=== PATIENT | male | born 1975 | race Caucasian/White ===

== ENCOUNTER 2022-03-17 13:32 | Inpatient (IN) | payer OTHER, SELFPAY ==
--- NOTE | ~2022-03-17 | XR_ITS ---
EXAMINATION: XR ABDOMEN KUB CLINICAL INDICATION: Assess for obstruction COMPARISON: None TECHNIQUE: AP view of the abdomen. FINDINGS: The bowel gas pattern is normal with no evidence of ileus or obstruction. No unusual soft tissue calcifications are noted. The bones are unremarkable. XR/XR KUB IMPRESSION: Unremarkable examination.
[2022-03-17 14:08] VITALS: BP 129/82; BP 160/100; PULSE 76; PULSE 96; RESP 18; TEMP 36.7; O2SAT 97; O2SAT 98; BMI 37.8
[2022-03-17 14:14] LABS: Glucose, Whole Blood 85 mg/dL (60-115)
[2022-03-17 14:21] VITALS: BP 129/82; PULSE 80; RESP 20; TEMP 37.1; O2SAT 99
--- NOTE | 2022-03-17 14:21 | ECG_ITS ---
Test Reason : FTT Blood Pressure : / mmHG Vent. Rate : 088 BPM Atrial Rate : 088 BPM P-R Int : 150 ms QRS Dur : 090 ms QT Int : 358 ms P-R-T Axes : 022 -03 048 degrees QTc Int : 433 ms Normal sinus rhythm cannot exclude old Inferior infarct , age undetermined ; could also be normal variant Abnormal ECG No previous ECGs available Referred By: Generic ED Physician Electronically Signed By:LORENA SONG
--- NOTE | 2022-03-17 14:29 | PC.NURSE ---
changed over. belonging list completed. locked in locker.
[2022-03-17 14:38] LABS: MANUAL DIFF FLAG NO
[2022-03-17 14:40] LABS: Basophils Percent Auto 0.3 % (0-2); Eosinophils Absolute Auto 0.1 X10*3/uL (0.0-0.4); Eosinophils Percent Auto 1.9 % (0-4); Hematocrit 47.6 % (42.0-52.0); Hemoglobin 16.3 g/dl (14.0-18.0); Imm Gran Abs Auto 0.02 X10*3/uL (0.00-0.03); Imm Gran Pct Auto 0.3 % (0.0-0.4); Lymphocytes Percent Auto 29.5 % (20-40); Mean Corpuscular HGB Conc 34.2 g/dl (31.0-36.0); Mean Corpuscular Hemoglobin 28.2 pg (27.0-33.0); Mean Corpuscular Volume 82.5 fL (80.0-98.0); Mean Platelet Volume 10.3 fL (9.4-12.4); Monocytes Absolute Auto 0.7 X10*3/uL (0.1-1.2); Monocytes Percent Auto 10.3 % (2-11); Neutrophils Absolute Auto 3.9 x10*3/uL (2.0-8.3); Neutrophils Percent Auto 57.7 % (45-73); Platelet Count 299 X10*3/uL (160-400); Red Blood Count 5.77 X10*6/uL (4.60-5.80); Red Cell Distribution Width 12.7 % (11.0-16.0); White Blood Count 6.8 X10*3/uL (4.8-10.8)
[2022-03-17 15:06] LABS: Alanine Aminotransferase 16 U/L (0-40); Albumin Level 4.2 g/dL (3.5-5.0); Alkaline Phosphatase 53 U/L (39-117); Anion Gap 18 (12-20); Aspartate Amino Transferase 18 U/L (5-37); Bilirubin Total 0.6 mg/dL (0.0-1.0); Blood Urea Nitrogen 13 mg/dL (9-16); Calcium 9.6 mg/dL (8.4-10.2); Carbon Dioxide 19 mmol/L (22-29); Chloride 105 mmol/L (96-108); Creatinine Clr Calc Pharmacy 109.2; Estimated Glomerular Filt Rate > 60; Glucose Random 95 mg/dL (60-115); Potassium 3.7 mmol/L (3.3-5.1); Sodium 138 mmol/L (135-145); Total Protein 6.9 g/dL (6.5-8.0)
--- NOTE | 2022-03-17 15:59 | PC.NURSE ---
CALLING [facility] FOR RECORDS FROM VISIT THIS AM. MOM AT BEDSIDE REQUESTING AND IV BE STARTED AND REPORTING CP. PT REFUSING CARDIAC LEADS. BOTH EDUCATED ON PT BLOOD WORK RESULTS AND AWARE.
--- NOTE | 2022-03-17 16:43 | ED.GENADULT ---
HPI - General Adult General Chief complaint: Failure to Thrive Stated complaint: SEC 12, stomach pain, not eaten per EMS Time Seen by Provider: 03/17/22 15:28 Source: patient and family (Mother and father) Mode of arrival: EMS History of Present Illness HPI narrative: History is obtained primarily from the mother who is at bedside. 46-year-old male with significant underlying psychiatric history who is had 4 months of intermittent complaints of abdominal discomfort, chest discomfort, nausea and vomiting and mother reports has had a 40 lb weight loss. Patient has been seen at both [facility] as well as [facility], patient was seen at [facility] this morning and had lab work done but when the family found out that it was going to be an 8 hour weight they left the emergency room and call the patient's therapist who Section 12 the patient given his underlying condition and statements that he made about ?I just want to lay here and ?. According to the mother patient has been laying in bed a home and has not been eating or drinking for 3 days. Related Data Allergies Allergy/AdvReac Type Severity Reaction Status Date / Time No Known Allergies Allergy Verified 03/17/22 16:59 Review of Systems Review of Systems: Pertinent positives and negatives as stated in HPI 10 point review of systems is otherwise negative. PMFSH Past Medical History Source: nursing notes reviewed Medical History HTN (hypertension) Social History Social History Advance Directives: No Advance Directives Information Provided: No Physical Exam ED Vital Signs: Vital Signs - 24 hr 03/17/22 14:08 03/17/22 14:21 Temperature 98.1 F 98.8 F Pulse Rate 76 80 Respiratory Rate 18 20 Blood Pressure 129/82 129/82 Pulse Oximetry 98 99 Oxygen Delivery Method Room Air Room Air BMI result Body Mass Index 37.8 VITAL SIGNS: Reviewed. GENERAL: Elevated BMI, Well developed, well nourished, in no acute distress. HEAD: Normocephalic/atraumatic EYES: PERRLA, EOMI EARS: Ext canals without abnormality OROPHARYNX: no oral lesions noted, posterior pharynx clear LUNGS: Normal breath sounds. No adventitious sounds or accessory muscle use. SpO2<98> CARDIOVASCULAR: Regular rate and rhythm without noted murmurs, no JVD or lower extremity edema. ABDOMEN: Soft, non-tender, non-distended with bowel sounds. MUSCULOSKELETAL: No tenderness, deformities, or effusions noted on gross inspection. EXTREMITIES: No cyanosis, clubbing or edema. SKIN: Inspection of the skin reveals no rashes, ulcerations, jaundice, pallor, or petechiae. NEUROLOGIC: Alert and oriented x 4. Strength and sensation to light touch were grossly intact x 4. PSYCH: Flat affect, Course Course Course Narrative: 46-year-old male with history and clinical presentation that appears to be related to underlying psychiatric conditions as opposed to functional difficulty with eating and drinking. As per mother's history patient has had CT scans, MRIs at [facility], was seen at [facility] today where he had lab work but they did not want to wait in the waiting area in a wheelchair and so left. I contacted the [facility] to find out the nature of the Section 12 and I was informed that although they had some concerns for dehydration the patient was already inpatient bed search for statements of SI and concerns regarding delusion. I reviewed the lab work which is grossly normal, renal function appears well, will give patient 2 L of IV fluids and removed the IV access and then patient can be moved back to the behavioral pod. I reviewed the lab results from [facility] which again demonstrate benign lab work and I have requested records from [facility] to include imaging, discharge summaries. Reevaluation(s) Reevaluation #1: Called [facility] to clarify nature of Sec-12, inpatient bedsearch, Time: 16:44 Reevaluation #2: Patient placed in physician observation because the patient needed more time for IV fluid resuscitation. At the time observation was started the patient's vital signs were stable, patient is alert and oriented, neuro: Nonfocal, CV RRR, lungs clear Time: 17:31 Medical Decision Making Lab Data Result Diagrams: 03/17/22 14:30 03/17/22 14:30 Labs: Lab Results 03/17/22 03/17/22 03/17/22 Range/Units 14:09 14:30 14:30 WBC 6.8 (4.8-10.8) X10*3/uL RBC 5.77 (4.60-5.80) X10*6/uL Hgb 16.3 (14.0-18.0) g/dl Hct 47.6 (42.0-52.0) % MCV 82.5 (80.0-98.0) fL MCH 28.2 (27.0-33.0) pg MCHC 34.2 (31.0-36.0) g/dl RDW 12.7 (11.0-16.0) % Plt Count 299 (160-400) X10*3/uL MPV 10.3 (9.4-12.4) fL Immature Gran % (Auto) 0.3 (0.0-0.4) % Neut % (Auto) 57.7 (45-73) % Lymph % (Auto) 29.5 (20-40) % [place] % (Auto) 10.3 (2-11) % Eos % (Auto) 1.9 (0-4) % Baso % (Auto) 0.3 (0-2) % Lymph # (Auto) 2.0 (1.2-4.9) X10*3/uL [place] # (Auto) 0.7 (0.1-1.2) X10*3/uL Eos # (Auto) 0.1 (0.0-0.4) X10*3/uL Baso # (Auto) 0.0 (0.0-0.2) X10*3/uL Abs Immat Gran (auto) 0.02 (0.00-0.03) X10*3/uL Absolute Neuts (auto) 3.9 (2.0-8.3) x10*3/uL Absolute Nucleated RBC 0.000 (0.0-0.012) X10*3/uL Nucleated RBC % (auto) 0.0 (0.0-0.2) /100WBC Sodium 138 (135-145) mmol/L Potassium 3.7 (3.3-5.1) mmol/L Chloride 105 (96-108) mmol/L Carbon Dioxide 19 L (22-29) mmol/L Anion Gap 18 (12-20) BUN 13 (9-16) mg/dL Creatinine 0.80 (0.5-1.4) mg/dL Estim Creat Clear Calc 109.2 Estimated GFR > 60 POC Glucose 85 (60-115) mg/dL Random Glucose 95 (60-115) mg/dL Calcium 9.6 (8.4-10.2) mg/dL Total Bilirubin 0.6 (0.0-1.0) mg/dL AST 18 (5-37) U/L ALT 16 (0-40) U/L Alkaline Phosphatase 53 (39-117) U/L Total Protein 6.9 (6.5-8.0) g/dL Albumin 4.2 (3.5-5.0) g/dL Critical Care Time Critical Care Time Critical Care Time: Yes Total Critical Care Time: 30 Attestation: I personally attest to this time spent taking care of the patient. Discharge Plan Discharge Clinical Impression: Suicidal ideation, Decrease in appetite Patient Disposition: Still a Patient
--- NOTE | 2022-03-17 17:06 | PC.NURSE ---
1l ns started per md verbal order
--- NOTE | 2022-03-17 17:30 | MHC.EDTECH ---
[facility] records called at 1726 per ,awaiting a call back at this time.Provider aware
--- NOTE | 2022-03-17 17:57 | PHA.MEDREC ---
Pharmacy Consult ? Medication Reconciliation Pharmacy has completed the medication reconciliation.
[2022-03-17 20:08] LABS: COVID-19 Test Negative (Negative)
--- NOTE | 2022-03-17 20:15 | PC.NURSE ---
Assumed care of pt. at 1900. Pt. resting in bed at that time with family at bedside. Pt. got a bed inpatient on M5. Spoke to Alex for report. COVID results just came back negative. Alex will be down for pt. shortly.
--- NOTE | 2022-03-18 01:37 | PC.ADMIT ---
Nils is a 46 year old Chinese speaking man. who presented to the [facility] via ambulance after community [facility] assessment . He arrived to at 22:05 on 03/17/22 on a section 12B. He is very worried about his health and says he should not be here he needs medical care its hopeless I cant do anything He was diagnosed with a thoracic aneurism in 2017 a recent follow up reported that the aneurism has enlarged this seems to have caused major concern to Justice and his functioning has decreased. Mood is worried with poor insight on self care, he has reportedly not eaten in 3 days and has a fear of having a bowel movement because of what may come out isn't safe for others he is anxious and has delusional thinking. He has no previous inpatient admission. He lives with his parents and his mother is noted to say that Justice was doing better when he was working with a therapist. He is covid 19 negative
[2022-03-18 08:56] LABS: Cholesterol 187 mg/dL; Estimated Average Glucose 88 mg/dL; Free T4 (Free Thyroxine) 1.32 ng/dL (0.71-1.85); HDL Cholesterol 28 mg/dL; Hemoglobin A1c % 4.7 %; LDL Cholesterol Calculated 138 mg/dl; Thyroid Stimulating Hormone 0.65 uIU/mL (0.32-4.0); Triglycerides 106 mg/dL
[2022-03-18 09:09] LABS: Folate 8.5 ng/mL (> or = 4.0); Vitamin B12 456 pg/mL (200-900)
--- NOTE | 2022-03-18 10:26 | HO.PSYADMNOT ---
HPI Date of Service: 03/18/22 Chief Complaint: psychosis, delusions of persecution, SI Sources of Information: patient interviewed, chart reviewed and crisis/core team assessment reviewed HPI Subjective Notes: Mathew Warning, Conditional Voluntary and Section 12B Narrative: pt is a 46 yo male with long hx of anxiety, thoracic aneurysm (dx Nov 2021) who presents for severe anxiety in face of difficulty eating/drinking since this past monday. Pt is accompanied by his mother. Pt reports that this past monday he stopped being able to eat or drink since it caused pain (pointing to area just below his xiphoid process) and wretching. Patient reports only 1 bowel movement in past 2 weeks, most recent one with blood in stool. Patients mother confirms. Patient is extremely anxious about these changes. He also shares about other ailments but extrapolates with them revealing paranoid/delusional thinking. Pt recently had ingrown toenail surgically excised but now says he thinks there is pus coming from it and that pus got into his blood stream. Recently dx w/ right eye macular degeneration and is worried that if he gets any water in his eyes, he will go blind. Pt is convinced he will keep getting sicker and ie. He refuses laxative, enema for constipation saying i don't know what will happen if i do... Regarding references to aliens pt is clear he does not think he's an alien or that there are aliens or that his body manipulated by aliens...he says he feels like his body is alien to him, that somethings wrong with it that cannot be fixed. He denies alcohol or drug use; denies AVH; Denies any SI or HI. Mother corroborates. 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 Sober for 1 year Trauma History: denies Diagnostics Vital Signs (24Hr): Vital Signs - 24 hr 03/17/22 14:08 03/17/22 14:21 Temperature 98.1 F 98.8 F Pulse Rate 76 80 Respiratory Rate 18 20 Blood Pressure 129/82 129/82 Pulse Oximetry 98 99 Oxygen Delivery Method Room Air Room Air BMI result Body Mass Index 37.8 Labs Results: 03/17/22 14:30 03/17/22 14:30 Labs: Laboratory Results - last 48 hr 03/17/22 03/17/22 03/17/22 14:09 14:30 14:30 WBC 6.8 RBC 5.77 Hgb 16.3 Hct 47.6 MCV 82.5 MCH 28.2 MCHC 34.2 RDW 12.7 Plt Count 299 MPV 10.3 Immature Gran % (Auto) 0.3 Neut % (Auto) 57.7 Lymph % (Auto) 29.5 [place] % (Auto) 10.3 Eos % (Auto) 1.9 Baso % (Auto) 0.3 Lymph # (Auto) 2.0 [place] # (Auto) 0.7 Eos # (Auto) 0.1 Baso # (Auto) 0.0 Abs Immat Gran (auto) 0.02 Absolute Neuts (auto) 3.9 Absolute Nucleated RBC 0.000 Nucleated RBC % (auto) 0.0 Sodium 138 Potassium 3.7 Chloride 105 Carbon Dioxide 19 L Anion Gap 18 BUN 13 Creatinine 0.80 Estim Creat Clear Calc 109.2 Estimated GFR > 60 POC Glucose 85 Random Glucose 95 Estimat Average Glucose Hemoglobin A1c % Calcium 9.6 Magnesium Total Bilirubin 0.6 AST 18 ALT 16 Alkaline Phosphatase 53 Total Protein 6.9 Albumin 4.2 Triglycerides Cholesterol LDL Cholesterol, Calc HDL Cholesterol Vitamin B12 Folate TSH Free T4 COVID-19 ([facility]ANNA) COVID-19 Clin Com 03/17/22 03/18/22 03/18/22 19:49 08:00 08:00 WBC RBC Hgb Hct MCV MCH MCHC RDW Plt Count MPV Immature Gran % (Auto) Neut % (Auto) Lymph % (Auto) [place] % (Auto) Eos % (Auto) Baso % (Auto) Lymph # (Auto) [place] # (Auto) Eos # (Auto) Baso # (Auto) Abs Immat Gran (auto) Absolute Neuts (auto) Absolute Nucleated RBC Nucleated RBC % (auto) Sodium Potassium Chloride Carbon Dioxide Anion Gap BUN Creatinine Estim Creat Clear Calc Estimated GFR POC Glucose Random Glucose Estimat Average Glucose 88 Hemoglobin A1c % 4.7 Calcium Magnesium 2.0 Total Bilirubin AST ALT Alkaline Phosphatase Total Protein Albumin Triglycerides 106 Cholesterol 187 LDL Cholesterol, Calc 138 HDL Cholesterol 28 Vitamin B12 Folate TSH 0.65 Free T4 1.32 COVID-19 (HANNA) Negative COVID-19 Clin Com See Note 03/18/22 08:00 WBC RBC Hgb Hct MCV MCH MCHC RDW Plt Count MPV Immature Gran % (Auto) Neut % (Auto) Lymph % (Auto) [place] % (Auto) Eos % (Auto) Baso % (Auto) Lymph # (Auto) [place] # (Auto) Eos # (Auto) Baso # (Auto) Abs Immat Gran (auto) Absolute Neuts (auto) Absolute Nucleated RBC Nucleated RBC % (auto) Sodium Potassium Chloride Carbon Dioxide Anion Gap BUN Creatinine Estim Creat Clear Calc Estimated GFR POC Glucose Random Glucose Estimat Average Glucose Hemoglobin A1c % Calcium Magnesium Total Bilirubin AST ALT Alkaline Phosphatase Total Protein Albumin Triglycerides Cholesterol LDL Cholesterol, Calc HDL Cholesterol Vitamin B12 456 Folate 8.5 TSH Free T4 COVID-19 (HANNA) COVID-19 Clin Com Meds/Allergies Meds Home Medications Medication Instructions Recorded Confirmed Type amlodipine 5 mg tablet 1 tab PO DAILY 03/17/22 03/17/22 History metoprolol succinate 25 mg 1 tab PO DAILY 03/17/22 03/17/22 History tablet,extended release 24 hr Allergies Allergies Allergy/AdvReac Type Severity Reaction Status Date / Time No Known Allergies Allergy Verified 03/17/22 16:59 Mental Status Exam Mental Status Exam Narrative: Pt is alert and oriented; behavior is anxious, head on table; dressed in hospital attire with scruffy facial hair, adequate hygiene; mood is described as anxious and affect congruent, furrowed brow; minimal eye contact appropriate; Speech is normal rate, volume and prosody and not pressured; no psychomotor agitation/retardation present; thought process is goal directed; Thought content is on physical ailments and psychosomatic and delusional worries; denies any SI/HI. There is no evidence of perceptual disturbance. Patients insight and judgment are impaired. Assessment & Plan Assessment & Plan (1) MACIEL (generalized anxiety disorder): Status: Acute Code(s): F41.1 - Generalized anxiety disorder (2) Somatic delusion disorder: Status: Acute Code(s): F22 - Delusional disorders (3) Thoracic aortic aneurysm: Status: Acute Code(s): I71.20 - Thoracic aortic aneurysm, without rupture, unspecified Plan pt is a 46 yo male with long hx of anxiety, thoracic aneurysm (dx Nov 2021) who presents for severe anxiety in face of difficulty eating/drinking since this past monday. Pt is accompanied by his mother.? -Pt reports that this past monday he stopped being able to eat or drink since it caused pain (pointing to area just below his xiphoid process) and wretching. -hx of severe anxiety -but no hx of psychosis Impression: pt has combination of medical illness and delusional somatic complaints likely from MACIEL/OCD, making dx difficult. Does not seem psychotic or manic; mother says excessive worry started w/ dx of aneurysm a few months ago. Patients insight varies depending on anxiety level and though he can understand possible concerns, minimizes confounding role of anxiety and does things like refuse enema; thinks his situation is hopeless Concerns to address: 1. has complaints concerning for bowel obstruction (no BM 2 weeks; cannot keep food/water down 3 days; billious vomit) 2. recent hx thoracic aneurysm with sudden onset of substernal upper abdominal pain on eating/drinking for 3 days, concern for possible worsening dilation of aneurysm. 3. likely MACIEL and/or OCD requiring medication management (though pt currently not willing) PLAN: Discussed case with Hospitalist Dr. Hernandez, Dr. Law (GI) and cover stitch machine operator Dr. Serrano -Barrium swallow on hold to first r/o obstruction (per amrik Law) with KUB -KUB ordered (per Dr. Law) -CT chest/angio/aortic ordered with IV contrast to r/o worsening thoracic aneurysm (per dr. Serrano-though considers this unlikely). -fleet enema ordered Otherwise: 12 B (refused to sign CV offered again by this senior medical writer) q15min checks Ativan PrN (can let dissolve under tongue) Patient educated on: diagnosis, medication risk/benefits and medical condition Informed Consent: understands, does not understand and further education needed Reason for continued inpatient stay Substantial Risk for: inability to function and rapid decompensation Statement Statement: I have reviewed the history and physical and performed a pertinent examination on my patient. No changes have occurred unless specified. Time Spent With Patient Time: Total time managing care of this patient today ____ minutes.
[2022-03-18 12:08] VITALS: BP 148/90; PULSE 107; RESP 16; TEMP 36.9; O2SAT 97
[2022-03-18] MEDS: LORazepam 1 MG TABLET PO (12:26)
[2022-03-18 18:00] VITALS: RESP 18
[2022-03-19 08:30] VITALS: BP 122/75; PULSE 100; TEMP 36.4
--- NOTE | 2022-03-19 10:17 | P.PNPSI_ITS ---
Subjective Subjective Date of Service: 03/19/22 Reason For Visit: psychosis, delusions of persecution, SI Interim History: meeting w/ parents; pt anxious, lamenting that nothing can be done for him, just let him go...asking his parents to just leave him somewhere...Locks Tender asked where the side of the road? and he says yes. He denies any SI and laments i want to drink i want to eat...i just can't...i can't explain it.. but goes on to repeat that nothing can be done for him. Patient refuses to believe that process description writer has seeing other patients who could not eat or drink, saying that this is a unique situation. Locks Tender and parents together tried to encourage patient to take another Ativan under his tongue, which helped yesterday however he refused and kept saying it will not help... there is no point (after patient took Ativan under his tongue he was much more reasonable and able to engage with process description writer and agreed that perhaps he could be helped; at that time he agreed to KUB, barium swallow and thoracic CT-each intervention was explained to patient. Patient got the KUB but was worried about the CT and eventually refused CT). Patient refused an IV fluids for the same reason saying it is not going to help. Locks Tender appeal to patient's rational thinking from yesterday and reminded him that he agreed anxiety can interfere; process description writer reminded him that if he was thinking clearly and say was constipated he would take treatment and that to refuse a treatment was a sign that anxiety was interfering with his thinking. Yesterday agreed with this logic but today, though he agreed that it does not make sense he returned to his lament and said I can not explain it I just can not explain it... Nothing is going to work. Patient has a thoracic aneurysm and has not been taking his metoprolol or amlodipine saying he is unable to swallow. Locks Tender discussed with patient who understands the need for these medications for his thoracic aneurysm however He refuses IV metoprolol saying it's not going to help... Nothing is going to help.... You can not fix me.... Locks Tender, Patient and mother and father discussed healthcare proxy and patient was initially ambivalent. Locks Tender explained the details of healthcare proxy; patient asked appropriate questions and expressed he understood and said he trusts his parents and that they are great. Patient signed healthcare proxy designating his mother and than his father as alternate. Patient's parents review timeline events leading up to this admission: Prior to this summer, patient was overall doing fine, worked, drove his car and for the past 2 years had no obvious problems. Parents agree that patient is drinking likely kept his anxiety down to some degree -September: sister got diagnosed with melanoma very upsetting for patient -September: patient had painless hematuria, cystoscopy did have a finding but it was benign -November: About 4 years ago patient was diagnosed with thoracic aneurysm however he has not followed up. This past summer he was going to the emergency room multiple times for various problems and eventually agreed to thoracic CT which showed that aneurysm had increased to 4.3 mg -December: Patient had a severely ingrown toenail which required surgical extraction -January: Patient diagnosed with macular degeneration is right eye -over these months patient has been eating less and less, saying that he had little appetite, did not like the smell of meat and has lost 20 or more lb -March: on Monday patient had bloody stool; 1st bowel movement in a week On Monday patient suddenly had chest pain and subsequent retching after drinking any fluid or eating anything On 02:30 patient went to [facility] ED, blood labs were drawn but no imaging or or labs; no fluid; long wait prompted patient to return home but he then came to [place] ED where he got IV fluid Parents agree that given patient's baseline anxiety, all these events mounted to become overwhelming for patient and tipped scales to him decompensating leading to this admission. Refused occult stool test (H&H WNL and stable) Diagnostics Vital Signs (24Hr): Vital Signs - 24 hr 03/18/22 12:08 03/18/22 18:00 Temperature 98.5 F Pulse Rate 107 H Respiratory Rate 16 18 Blood Pressure 148/90 H Pulse Oximetry 97 Oxygen Delivery Method Room Air BMI result Body Mass Index 37.8 Labs Results: 03/17/22 14:30 03/19/22 16:49 Labs: Laboratory Results - last 48 hr 03/17/22 03/17/22 03/17/22 14:09 14:30 14:30 WBC 6.8 RBC 5.77 Hgb 16.3 Hct 47.6 MCV 82.5 MCH 28.2 MCHC 34.2 RDW 12.7 Plt Count 299 MPV 10.3 Immature Gran % (Auto) 0.3 Neut % (Auto) 57.7 Lymph % (Auto) 29.5 [place] % (Auto) 10.3 Eos % (Auto) 1.9 Baso % (Auto) 0.3 Lymph # (Auto) 2.0 [place] # (Auto) 0.7 Eos # (Auto) 0.1 Baso # (Auto) 0.0 Abs Immat Gran (auto) 0.02 Absolute Neuts (auto) 3.9 Absolute Nucleated RBC 0.000 Nucleated RBC % (auto) 0.0 Sodium 138 Potassium 3.7 Chloride 105 Carbon Dioxide 19 L Anion Gap 18 BUN 13 Creatinine 0.80 Estim Creat Clear Calc 109.2 Estimated GFR > 60 POC Glucose 85 Random Glucose 95 Estimat Average Glucose Hemoglobin A1c % Calcium 9.6 Magnesium Total Bilirubin 0.6 AST 18 ALT 16 Alkaline Phosphatase 53 Total Protein 6.9 Albumin 4.2 Triglycerides Cholesterol LDL Cholesterol, Calc HDL Cholesterol Vitamin B12 Folate TSH Free T4 COVID-19 ([facility]) COVID-19 Clin Com 03/17/22 03/18/22 03/18/22 19:49 08:00 08:00 WBC RBC Hgb Hct MCV MCH MCHC RDW Plt Count MPV Immature Gran % (Auto) Neut % (Auto) Lymph % (Auto) [place] % (Auto) Eos % (Auto) Baso % (Auto) Lymph # (Auto) [place] # (Auto) Eos # (Auto) Baso # (Auto) Abs Immat Gran (auto) Absolute Neuts (auto) Absolute Nucleated RBC Nucleated RBC % (auto) Sodium Potassium Chloride Carbon Dioxide Anion Gap BUN Creatinine Estim Creat Clear Calc Estimated GFR POC Glucose Random Glucose Estimat Average Glucose 88 Hemoglobin A1c % 4.7 Calcium Magnesium 2.0 Total Bilirubin AST ALT Alkaline Phosphatase Total Protein Albumin Triglycerides 106 Cholesterol 187 LDL Cholesterol, Calc 138 HDL Cholesterol 28 Vitamin B12 Folate TSH 0.65 Free T4 1.32 COVID-19 ([facility]) Negative COVID-19 Clin Com See Note 03/18/22 08:00 WBC RBC Hgb Hct MCV MCH MCHC RDW Plt Count MPV Immature Gran % (Auto) Neut % (Auto) Lymph % (Auto) [place] % (Auto) Eos % (Auto) Baso % (Auto) Lymph # (Auto) [place] # (Auto) Eos # (Auto) Baso # (Auto) Abs Immat Gran (auto) Absolute Neuts (auto) Absolute Nucleated RBC Nucleated RBC % (auto) Sodium Potassium Chloride Carbon Dioxide Anion Gap BUN Creatinine Estim Creat Clear Calc Estimated GFR POC Glucose Random Glucose Estimat Average Glucose Hemoglobin A1c % Calcium Magnesium Total Bilirubin AST ALT Alkaline Phosphatase Total Protein Albumin Triglycerides Cholesterol LDL Cholesterol, Calc HDL Cholesterol Vitamin B12 456 Folate 8.5 TSH Free T4 COVID-19 ([facility]) COVID-19 Clin Com Imaging Radiology Impressions: ITS Impressions KUB X-Ray 03/18/22 16:35 IMPRESSION: Unremarkable examination. Medications Medications Current Medications Acetaminophen (Acetaminophen 325 Mg Tablet) 650 mg PO Q6H PRN PRN Reason: Headache/Pain Mild Scale (1-3) Al Hydroxide/Mg Hydroxide (Magnesium Hydrox/Alum Hydrox 30 Ml Oral.Susp) 30 ml PO Q6H PRN PRN Reason: Heartburn/Nausea Amlodipine Besylate (Amlodipine Besylate 5 Mg Tablet) 5 mg PO DAILY [facility]; Protocol Last Admin: 03/19/22 09:07 Dose: Not Given Hydroxyzine HCl (Hydroxyzine Hcl 25 Mg Tablet) 25 mg PO Q6H PRN PRN Reason: Anxiety Lorazepam (Lorazepam 1 Mg Tablet) 1 mg PO Q4H PRN PRN Reason: anxiety; agitation Magnesium Hydroxide (Milk Of Magnesia 30 Ml Oral.Susp) 30 ml PO DAILY PRN PRN Reason: Constipation Metoprolol Succinate (Metoprolol Succinate Er 25 Mg Tab.Er.24h) 25 mg PO DAILY [facility]; Protocol Last Admin: 03/19/22 09:07 Dose: Not Given Olanzapine (Olanzapine Odt 10 Mg Tab.Rapdis) 10 mg TRANSLINGU BID PRN PRN Reason: Psychosis Pharmacy Consult (Consult Rx Perform Med Rec) 1 each MISCELLANE ONCE PRN PRN Reason: Consult order Polyethylene Glycol (Polyethylene Glycol 3350 17 Gm Powd.Pack) 17 gm PO DAILY PRN PRN Reason: constipation Sodium Biphosphate/Sodium Phosphate (Sodium Phosphate,[place]-Dibasic 133 Ml Enema) 133 ml [place] ONCE PRN PRN Reason: Constipation Trazodone HCl (Trazodone Hcl 50 Mg Tablet) 50 mg PO BEDTIME PRN PRN Reason: Insomnia Allergies Allergies Allergy/AdvReac Type Severity Reaction Status Date / Time No Known Allergies Allergy Verified 03/17/22 16:59 Assessment & Plan Assessment & Plan (1) MACIEL (generalized anxiety disorder): Status: Acute Code(s): F41.1 - Generalized anxiety disorder (2) Somatic delusion disorder: Status: Acute Code(s): F22 - Delusional disorders (3) Thoracic aortic aneurysm: Status: Acute Code(s): I71.20 - Thoracic aortic aneurysm, without rupture, unspecified Plan pt is a 46 yo male with long hx of anxiety, thoracic aneurysm (dx Nov 2021) who presents for severe anxiety in face of difficulty eating/drinking since this past monday. Pt is accompanied by his mother.? -Pt reports that this past monday he stopped being able to eat or drink since it caused pain (pointing to area just below his xiphoid process) and wretching. -hx of severe anxiety -but no hx of psychosis Patient's parents review timeline events leading up to this admission: Prior to this summer, patient was overall doing fine, worked, drove his car and for the past 2 years had no obvious problems. Parents agree that patient is drinking likely kept his anxiety down to some degree -September: sister got diagnosed with melanoma very upsetting for patient -September: patient had painless hematuria, cystoscopy did have a finding but it was benign -November: About 4 years ago patient was diagnosed with thoracic aneurysm however he has not followed up. This past summer he was going to the emergency room multiple times for various problems and eventually agreed to thoracic CT which showed that aneurysm had increased to 4.3 mg -December: Patient had a severely ingrown toenail which required surgical extraction -January: Patient diagnosed with macular degeneration is right eye -over these months patient has been eating less and less, saying that he had little appetite, did not like the smell of meat and has lost 20 or more lb -March: on Monday patient had bloody stool; 1st bowel movement in a week On Monday patient suddenly had chest pain and subsequent retching after drinking any fluid or eating anything On 02:30 patient went to [facility] ED, blood labs were drawn but no imaging or or labs; no fluid; long wait prompted patient to return home but he then came to [place] ED where he got IV fluid .03/19 meeting w/ parents; pt anxious, lamenting that nothing can be done for him, just let him go...asking his parents to just leave him somewhere...Locks Tender asked where the side of the road? and he says yes. He denies any SI and laments i want to drink i want to eat...i just can't...i can't explain it.. but goes on to repeat that nothing can be done for him. Patient refuses to believe that process description writer has seeing other patients who could not eat or drink, saying that this is a unique situation. Locks Tender and parents together tried to encourage patient to take another Ativan under his tongue, which helped yesterday however he refused and kept saying it will not help... there is no point (after patient took Ativan under his tongue he was much more reasonable and able to engage with process description writer and agreed that perhaps he could be helped; at that time he agreed to KUB, barium swallow and thoracic CT-each intervention was explained to patient. Patient got the KUB but was worried about the CT and eventually refused CT). Patient refused an IV fluids for the same reason saying it is not going to help. Patient has a thoracic aneurysm and has not been taking his metoprolol or amlodipine saying he is unable to swallow. Locks Tender discussed with patient who understands the need for these medications for his thoracic aneurysm however He refuses IV metoprolol saying it's not going to help... Nothing is going to help.... You can not fix me.... -patient reported that he did make urine today, that it was brown and bubbly Locks Tender, Patient and mother and father discussed healthcare proxy and patient was initially ambivalent. Locks Tender explained the details of healthcare proxy; patient asked appropriate questions and expressed he understood and said he trusts his parents and that they are great. Patient signed healthcare proxy designating his mother and than his father as alternate. Concerns to address: 1. bowel obstruction: dr. zhang r/o given unremarkable KUB (no BM 2 weeks; cannot keep food/water down 3 days; billious vomit) 2. Assess thoracic aneurysm, given with sudden onset of substernal upper abdominal pain on eating/drinking for 3 days, concern for possible worsening dilation of aneurysm 3. likely MACIEL and/or OCD requiring medication management (though pt currently not willing) Discussed case with Hospitalist Dr. Thanh Jackman (GI) and [facility] Dr. Serrano -Barrium swallow on hold to first r/o obstruction (per amrik Zhang) with KUB -KUB ordered (per Dr. Zhang): unremarkable -CT chest/angio/aortic ordered with IV contrast to r/o worsening thoracic aneurysm (per dr. Serrano-though considers this unlikely); pt refused -fleet enema ordered: refused Impression/plan: Parents agree that given patient's baseline anxiety, all these events combined into overwhelming anxiety and and tipped scales for him decompensate leading to this admission pt has combination of organic medical illness and delusional somatic complaints likely from MACIEL/OCD, making dx difficult. Does not seem psychotic or manic; mother says excessive worry started in summer when sister dx with cancer and worsened since. Patients insight varies depending on anxiety level and though he can understand possible concerns, minimizes confounding role of anxiety and does things like refuse enema; thinks his situation is hopeless -currently patient is either unable or refusing to drink any fluids; he refuses IV for fluids, refuses thoracic CT, refuses barium swallow, refuses Fleet enema, refuses occult stool test; he eventually allowed labs redrawn to monitor for kidney function. Patient's anxiety is chronic but has reached a psychotic level and patient does not have the capacity to make medical decisions for himself. He says he wants to live, wants to get better (wants to eat and drink) but has paranoid delusional thinking is causing him to him make decisions he would not normally make. Patient is still making urine. Will continue to assess dehydration however without fluids patient will at some point risks severe and even permanent kidney damage. PLAN: 12 B (refused to sign CV offered again by this process description writer) q15min checks Signed HCP on 03/19/22 continue Ativan 1mg TID (can let dissolve under tongue); pt refuses Continue to encourage IV for fluids Labs: Ordered repeat BMP to monitor kidney KUB negative for bowel obstruction -discussed with Dr. Lenz monitor for signs of dehydration: Dry mucus membranes; Skin turgor, drop in blood pressure/reflex tachycardia; sunken eyes I spent minutes with the patient and/or on the patient floor today, greater than?50% of which was spent counseling/coordinating care. Patient educated on: diagnosis, medication risk/benefits and medical condition Informed Consent: does not understand Reason for contiued inpatient stay Substantial Risk for: harm to self and inability to function Time Spent With Patient Time: Total time managing care of this patient today ____ minutes.
[2022-03-19 16:43] VITALS: BP 153/96; PULSE 100; RESP 18; TEMP 37.2; O2SAT 97
[2022-03-19 17:51] LABS: Anion Gap 20 (12-20); Blood Urea Nitrogen 20 mg/dL (9-16); Calcium 9.5 mg/dL (8.4-10.2); Carbon Dioxide 15 mmol/L (22-29); Chloride 109 mmol/L (96-108); Creatinine Clr Calc Pharmacy 107.9; Estimated Glomerular Filt Rate > 60; Glucose Random 93 mg/dL (60-115); Sodium 140 mmol/L (135-145)
[2022-03-20 06:00] VITALS: BP 109/83; PULSE 137; RESP 16; TEMP 36.8; O2SAT 98
[2022-03-20 10:00] VITALS: BP 144/90; PULSE 96; RESP 16; TEMP 36.7; O2SAT 96
[2022-03-20 10:35] LABS: Glucose, Whole Blood 90 mg/dL (60-115)
[2022-03-20 14:00] VITALS: BP 124/82; PULSE 121; RESP 20; O2SAT 96
--- NOTE | 2022-03-20 15:05 | PM.IMHP ---
History of Present Illness Date of Service: 03/20/22 Attending physician on admission: Kirill Ramesh Chief Complaint: Decreased PO intake Medical consult for a pt who is a 46-year-old male with a PMH significant for anxiety, SI, and delusions of persecution who states he has stopped eating and drinking since Monday evening. Pt states he suddenly could keep nothing down and would wretch everything up, especially fluids. Claims he has consumed nothing PO except for a few occasional sips that he would subsequently spit up. Pt notes he urinated earlier in the day, and it was dark yellow/brown in color with a lot of bubbles. Denies hematuria, but reports [id number] per rectum with last bowel movement, which was on Monday and required a great deal of straining to evacuate. Also complains of heartburn, rated 5/10. Denies chest pain/pressure, SOB, palpitations. No F/C. Hospitalist consult sought to evaluate for medical cause of anorexia and for second opinion should intervention be necessary. Labs yesterday were unremarkable, with creatinine 0.81. KUB with no evidence of ileus or obstruction. Of note, pt has been refusing taking anything PO, including meds, and other medical interventions such as IVF or additional studies. Review of Systems Review of Systems: Decreased appetite Nausea, vomiting with p.o. intake Dark yellow/ brown urine Heartburn Denies hematuria Denies chest pain / pressure No shortness of breath PMFSH Medical History HTN (hypertension) Social History Household Members: Other Household Members Other:: lives with parents Housing: House Do you presently have visiting nurse or other home services: No Patient Tobacco Use Status: Never used Tobacco Use of substances other than those prescribed or required for medical reasons: No Currently Displaying Signs/Symptoms of Drug Intoxication Withdrawal: No Have you been hit, kicked, punched, or otherwise hurt by someone within the past year? If so, by whom?: No Do you feel safe in your current relationship?: Yes Is there a partner from a previous relationship who is making you feel unsafe now?: No Are you made to feel afraid or neglected: No Spiritual Healthcare Practices: none Spiritism Healthcare Practices: none Cultural Healthcare Practices: none Advance Directives: No Advance Directives Information Provided: No Do you have thoughts of harming others: None Do you have a plan to hurt others: No Plan Recently lost weight without trying: Yes How much weight loss: 2-13 pounds Eating poorly because of decreased appetite: Yes Nutrition screen score: 4 Nutrition Risks: Poor intake 0-25% >4 days Poor oral hygiene: No service: No Sexual orientation: Decline to Answer Meds Allergies Allergy/AdvReac Type Severity Reaction Status Date / Time No Known Allergies Allergy Verified 03/17/22 16:59 Active Medications: Current Medications Acetaminophen (Acetaminophen 325 Mg Tablet) 650 mg PO Q6H PRN PRN Reason: Headache/Pain Mild Scale (1-3) Al Hydroxide/Mg Hydroxide (Magnesium Hydrox/Alum Hydrox 30 Ml Oral.Susp) 30 ml PO Q6H PRN PRN Reason: Heartburn/Nausea Amlodipine Besylate (Amlodipine Besylate 5 Mg Tablet) 5 mg PO DAILY [facility]; Protocol Last Admin: 03/20/22 09:50 Dose: Not Given Hydroxyzine HCl (Hydroxyzine Hcl 25 Mg Tablet) 25 mg PO Q6H PRN PRN Reason: Anxiety Lorazepam (Lorazepam 1 Mg Tablet) 1 mg PO TID [facility] Last Admin: 03/20/22 14:55 Dose: Not Given Magnesium Hydroxide (Milk Of Magnesia 30 Ml Oral.Susp) 30 ml PO DAILY PRN PRN Reason: Constipation Metoprolol Succinate (Metoprolol Succinate Er 25 Mg Tab.Er.24h) 25 mg PO DAILY [facility]; Protocol Last Admin: 03/20/22 09:50 Dose: Not Given Olanzapine (Olanzapine Odt 10 Mg Tab.Rapdis) 5 mg TRANSLINGU TID PRN PRN Reason: Psychosis Pharmacy Consult (Consult Rx Perform Med Rec) 1 each MISCELLANE ONCE PRN PRN Reason: Consult order Polyethylene Glycol (Polyethylene Glycol 3350 17 Gm Powd.Pack) 17 gm PO DAILY PRN PRN Reason: constipation Sodium Biphosphate/Sodium Phosphate (Sodium Phosphate,[place]-Dibasic 133 Ml Enema) 133 ml [place] ONCE PRN PRN Reason: Constipation Trazodone HCl (Trazodone Hcl 50 Mg Tablet) 50 mg PO BEDTIME PRN PRN Reason: Insomnia Home Medications Medication Instructions Recorded Confirmed Last Taken Type amlodipine 5 mg tablet 1 tab PO DAILY 03/17/22 03/17/22 03/17/22 History metoprolol succinate 25 mg 1 tab PO DAILY 03/17/22 03/17/22 03/17/22 History tablet,extended release 24 hr Physical Exam Vital Signs and Narrative: Vital Signs: Last Vital Signs Temp 98.1 F 03/20/22 10:00 Pulse 121 H 03/20/22 14:00 Resp 20 03/20/22 14:00 BP 124/82 03/20/22 14:00 Pulse Ox 96 03/20/22 14:00 O2 Del Method 03/20/22 10:00 BMI result Body Mass Index 37.8 General: AOx3, no acute distress Resp: CTA bilaterally CVS: S1, S2, tachycardia, regular rhythm GI: Hypoactive BS, NT, no distention Skin: No rash Neuro: Motor grossly intact Psych: Flat affect Neuro: General: CN's II-XI intact bilaterally Results Labs CBC and Chem 7: 03/17/22 14:30 03/19/22 16:49 Labs: Laboratory Results - last 24 hr 03/19/22 03/20/22 16:49 10:30 Anion Gap 20 Estim Creat Clear Calc 107.9 Estimated GFR > 60 POC Glucose 90 Random Glucose 93 Calcium 9.5 Assessment and Plan (1) Anorexia: Status: Acute Plan Medical consult for a pt who is a 46-year-old male with a PMH significant for anxiety, SI, and delusions of persecution who states he has stopped eating and drinking since Monday evening. Pt states he suddenly could keep nothing down and would wretch everything up, especially fluids. Labs yesterday were unremarkable, with creatinine 0.81. KUB with no evidence of ileus or obstruction. # anorexia -- etiology unclear, though no clear medical cause precluding him from eating -- labs currently unremarkable; creatinine 0.81 -- consider barium swallow if pt wiling -- follow labs for lytes and kidney function -- consider Velazquez order if pt continues to refuse po intake and labs show kidney failure # tachycardia -- etiology unclear -- possibly due to decreased po intake or anxiety # mental health -- per care of psychiatry team Thank you for allowing us to participate in the care of this patient. Please call if you have any additional problems or questions. Time Spent With Patient Time: Total time managing care of this patient today ____ minutes. Quality Stroke Does the patient have a stroke diagnosis?: No VTE Prior VTE?: No VTE Risk Level:: Medical - low VTE Device Contraindication: Treatment Not Indicated VTE Drug Contraindication: Treatment Not Indicated
--- NOTE | 2022-03-20 17:42 | P.PNPSI_ITS ---
Subjective Subjective Date of Service: 03/20/22 Reason For Visit: psychosis, delusions of persecution, SI Interim History: Patient remains delusional, insisting that nothing could be done for him and continues to refuse IV fluids, medications or any intervention at all. yesterday, He did allow blood draw for lytes and BUN/creatinine which remain within normal limits Skin turgor within normal limits; mild to moderately tachy, but BP WNL; mucous membranes dry Parents came to visit again, urging him to get an IV, except treatment, however patient continues to refuse and remains adamant that nothing can be done for him, repeating to just let him go and that his condition is hopeless, never happened to anyone before and can't be explained Mental Status Exam Mental Status Exam Narrative: Pt is alert and oriented; behavior is anxious, lying on bed; dressed in casual attire with scruffy facial hair, disheveled; mood is described as anxious and affect congruent, furrowed brow; minimal eye contact appropriate; Speech is normal rate, volume and prosody and not pressured; no psychomotor agitation/retardation present; thought process is goal directed; Thought content is on physical ailments, hopelessness and psychosomatic delusional worries; denies any SI/HI. There is no evidence of perceptual disturbance. Patients insight and judgment are impaired. Diagnostics Vital Signs (24Hr): Vital Signs - 24 hr 03/20/22 06:00 03/20/22 10:00 03/20/22 14:00 Temperature 98.2 F 98.1 F Pulse Rate 137 H 96 121 H Respiratory Rate 16 16 20 Blood Pressure 109/83 144/90 H 124/82 Pulse Oximetry 98 96 96 Oxygen Delivery Method Room Air Room Air BMI result Body Mass Index 37.8 Labs Results: 03/17/22 14:30 03/21/22 14:15 Labs: Laboratory Results - last 48 hr 03/19/22 03/20/22 16:49 10:30 Sodium 140 Potassium 4.0 Chloride 109 H Carbon Dioxide 15 L Anion Gap 20 BUN 20 H Creatinine 0.81 Estim Creat Clear Calc 107.9 Estimated GFR > 60 POC Glucose 90 Random Glucose 93 Calcium 9.5 Imaging Radiology Impressions: ITS Impressions KUB X-Ray 03/18/22 16:35 IMPRESSION: Unremarkable examination. Medications Medications Current Medications Acetaminophen (Acetaminophen 325 Mg Tablet) 650 mg PO Q6H PRN PRN Reason: Headache/Pain Mild Scale (1-3) Al Hydroxide/Mg Hydroxide (Magnesium Hydrox/Alum Hydrox 30 Ml Oral.Susp) 30 ml PO Q6H PRN PRN Reason: Heartburn/Nausea Amlodipine Besylate (Amlodipine Besylate 5 Mg Tablet) 5 mg PO DAILY [facility]; Protocol Last Admin: 03/20/22 09:50 Dose: Not Given Hydroxyzine HCl (Hydroxyzine Hcl 25 Mg Tablet) 25 mg PO Q6H PRN PRN Reason: Anxiety Lorazepam (Lorazepam 1 Mg Tablet) 1 mg PO TID [place] Last Admin: 03/20/22 14:55 Dose: Not Given Magnesium Hydroxide (Milk Of Magnesia 30 Ml Oral.Susp) 30 ml PO DAILY PRN PRN Reason: Constipation Metoprolol Succinate (Metoprolol Succinate Er 25 Mg Tab.Er.24h) 25 mg PO DAILY [facility]; Protocol Last Admin: 03/20/22 09:50 Dose: Not Given Olanzapine (Olanzapine Odt 10 Mg Tab.Rapdis) 5 mg TRANSLINGU TID PRN PRN Reason: Psychosis Pharmacy Consult (Consult Rx Perform Med Rec) 1 each MISCELLANE ONCE PRN PRN Reason: Consult order Polyethylene Glycol (Polyethylene Glycol 3350 17 Gm Powd.Pack) 17 gm PO DAILY PRN PRN Reason: constipation Sodium Biphosphate/Sodium Phosphate (Sodium Phosphate,Deaf Smith-Dibasic 133 Ml Enema) 133 ml IL ONCE PRN PRN Reason: Constipation Trazodone HCl (Trazodone Hcl 50 Mg Tablet) 50 mg PO BEDTIME PRN PRN Reason: Insomnia Allergies Allergies Allergy/AdvReac Type Severity Reaction Status Date / Time No Known Allergies Allergy Verified 03/17/22 16:59 Assessment & Plan Assessment & Plan (1) MACIEL (generalized anxiety disorder): Status: Acute Code(s): F41.1 - Generalized anxiety disorder (2) Somatic delusion disorder: Status: Acute Code(s): F22 - Delusional disorders (3) Thoracic aortic aneurysm: Status: Acute Code(s): I71.20 - Thoracic aortic aneurysm, without rupture, unspecified Plan pt is a 46 yo male with long hx of anxiety, thoracic aneurysm (dx Nov 2021) who presents for severe anxiety in face of difficulty eating/drinking since this past monday. Pt is accompanied by his mother.? -Pt reports that this past monday he stopped being able to eat or drink since it caused pain (pointing to area just below his xiphoid process) and wretching. -hx of severe anxiety -but no hx of psychosis Patient's parents review timeline events leading up to this admission: Prior to this summer, patient was overall doing fine, worked, drove his car and for the past 2 years had no obvious problems.? Parents agree that patient is drinking likely kept his anxiety down to some degree -September:? sister got diagnosed with melanoma very upsetting for patient -September:? patient had painless hematuria, cystoscopy did have a finding but it was benign -November:? About 4 years ago patient was diagnosed with thoracic aneurysm however he has not followed up.? This past summer he was going to the emergency room multiple times for various problems and eventually agreed to thoracic CT which showed that aneurysm had increased to 4.3 mg -December:? Patient had a severely ingrown toenail which required surgical extraction -January: Patient diagnosed with macular degeneration is right eye -over these months patient has been eating less and less, saying that he had little appetite, did not like the smell of meat and has lost 20 or more lb -March: on Monday patient had bloody stool; 1st bowel movement in a week On Monday patient suddenly had chest pain and subsequent retching after drinking any fluid or eating anything On 02:30 patient went to [facility] ED, blood labs were drawn but no imaging or or labs; no fluid; long wait prompted patient to return home but he then came to [place] ED where he got IV fluid .03/19 meeting w/ parents; pt anxious, lamenting that nothing can be done for him, just let him go...asking his parents to just leave him somewhere...Human Services Instructor asked where the side of the road? and he says yes. He denies any SI and laments i want to drink i want to eat...i just can't...i can't explain it.. but goes on to repeat that nothing can be done for him.? Patient refuses to believe that procedure writer has seeing other patients who could not eat or drink, saying that this is a unique situation.? Human Services Instructor and parents together tried to encourage patient to take a nother Ativan under his tongue, which helped yesterday however he refused and kept saying it will not help... there is no point (after patient took Ativan under his tongue he was much more reasonable and able to engage with procedure writer and agreed that perhaps he could be helped; at that time he agreed to KUB, barium swallow and thoracic CT-each intervention was explained to patient.? Patient got the KUB but was worried about the CT and eventually refused CT).? Patient refused an IV fluids for the same reason saying it is not going to help. Patient has a thoracic aneurysm and has not been taking his metoprolol or amlodipine saying he is unable to swallow.? Human Services Instructor discussed with patient who understands the need for these medications for his thoracic aneurysm however He refuses IV metoprolol saying it's not going to help...? Nothing is going to help....? You can not fix me.... -patient reported that he did make urine today, that it was brown and bubbly Human Services Instructor, Patient and mother and father discussed healthcare proxy and patient was initially ambivalent.? Human Services Instructor explained the details of healthcare proxy;? patient asked appropriate questions and expressed he understood and said he nicholas sts his parents and that they are great. Patient signed healthcare proxy designating his mother and than his father as alternate. Discussed case with Hospitalist Dr. Hernandez, Dr. Zhang (GI) and software engineer advisor Dr. Serrano -[facility] swallow on hold to first r/o obstruction (per amrik Zhang) with KUB -KUB ordered (per Dr. Zhang): unremarkable -CT chest/angio/aortic ordered with IV contrast to r/o worsening thoracic aneurysm (per dr. Serrano-though considers this unlikely); pt refused -fleet enema ordered: refused Impression/plan: Patient has chronic anxiety, likely OCD/MACIEL, formally subdued with alcohol abuse, which at this point has reached to a psychotic level. Patient has hx of anxiety started in childhood. However has functioned in the community with almost no history of psychiatric meds/therapy. No hx of any psychosis or lyn. 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 Starting this summer patient has undergone a series of stressful events (sisters cancer dx; patients own illness) triggering excessive worry and he's been going to the ED for psychosomatic complaints (along with organic ones); he has become unable to function, along worse, does not drive, not attending to ADLs. His parents agree that given patient's baseline anxiety, all these events combined into overwhelming anxiety and and tipped scales for him decompensate leading to this admission. Patient is not manic; though he has paranoid, somatic delusions, he has no known history of psychotic illness. At this point, pt's OCD/MACIEL worries about his organic medical illness have become delusional making it difficult to ascertain what is going on and whether there is an organic component to his complaint that he cannot keep down food or water. Patient has no insight that he has delusional thoughts (he had 1 fleeting moment of insight after Ativan lowered anxiety). Although he can understand possible concerns/consequences of refusing treatment (such risks of worsening kidney function,which he does not want and so he eventually consents to getting blood draws to monitor) his paranoid delusional thinking makes him think all treatments are useless, won't help him and that his situation is hopeless. He is unaware the role his anxiety plays in confounding his thinking, insisting nothing will help, even when some of his complaints could be resolved with something as simple as an enema. -Currently patient is either unable or refusing to drink any fluids; he refuses IV for fluids, refuses thoracic CT, refuses barium swallow, refuses Fleet enema, refuses occult stool test; intermittently refuses labs; refuses all medication including IM and SL); thus far he has eventually allowed labwork to monitor for kidney function.? Patient's anxiety is chronic but has reached a psychotic level and patient does not have the capacity to make medical decisions for himself. Patient has a detailed history of seeking treatment for his ailments. However, now he is disorganized; he says he wants to eat and drink, does not want to ...wants to live, does not want to damage his kidneys... however he refuses nearly all?treatments/interventions. PLAN: 12 B (refused to sign CV offered again by this procedure writer) q15min checks Signed HCP on 03/19/22 -if patient continues to refuse treatments, specifically IV fluids, and continues to either refused to be on able to drink fluids, he will at some point risks severe and even permanent kidney damage. -currently Patient is still making urine and labs reveal kidney function remains WNL -Will continue to assess dehydration however?without fluids patient will at some point risks severe and even permanent kidney damage. -procedure writer has discussed case with both Psychiatric Director Dr. Pérez and several hospitalists (listed throughout) -will continue to monitor labs as pt allows 1. Dysphagia: Psychogenic vs organic Not bowel obstruction with negative KUB per dr. zhang Pt refuses Barium Swallow Pt refuses to allow CT to Assess thoracic aneurysm (given with sudden onset of substernal upper abdominal pain on eating/drinking for 3 days; possible concern for possible worsening dilation of aneurysm, though low likelihood) 2. Severe Anxiety: OCD/MACIEL that is now at a psychotic level long hx of severe anxiety starting in childhood (eat his tie in school; over the years kept at bay with etoh abus) Pt refuses all medications continue Ativan 1mg TID (can let dissolve under tongue); though pt now refuses, one time he did helped pt become rational Continue to encourage IV for fluids Labs: Ordered repeat BMP to monitor kidney KUB negative for bowel obstruction refuses barium swallow; refuses CT; refuses all other interventions offered -Monitor for clinical signs of dehydration (discussed with Dr. Lenz): Dry mucus membranes; Skin turgor, drop in blood pressure/reflex tachycardia; sunken eyes I spent minutes with the patient and/or on the patient floor today, greater than?50% of which was spent counseling/coordinating care. Patient educated on: diagnosis, medication risk/benefits and medical condition Informed Consent: does not understand Reason for contiued inpatient stay Substantial Risk for: harm to self and inability to function Time Spent With Patient Time: Total time managing care of this patient today ____ minutes.
[2022-03-20 18:00] VITALS: BP 122/86; PULSE 126; RESP 16; TEMP 36.4; O2SAT 97
[2022-03-20] MEDS: LORazepam 1 MG TABLET PO (19:13)
--- NOTE | 2022-03-20 20:53 | PC.NURSE ---
Pt is alert and oriented, vomited 80mls of clear liquid after drinking 240ml of water. Pt has refused medication because he couldn't keep anything down. house calls nurse provider notified. No new order given.
[2022-03-20 21:17] VITALS: BP 119/84; PULSE 122; RESP 16; TEMP 36.6; O2SAT 98
[2022-03-20 21:38] LABS: Glucose, Whole Blood 83 mg/dL (60-115)
[2022-03-21 02:00] VITALS: BP 120/82; PULSE 119; RESP 16; TEMP 36.4; O2SAT 97
[2022-03-21 08:32] VITALS: BP 115/78; PULSE 136; RESP 16; TEMP 36.8; O2SAT 97
--- NOTE | 2022-03-21 10:27 | PC.NURSE ---
pt refused vitals, labs, POC and morning medications. provider notified
--- NOTE | 2022-03-21 10:28 | PC.NURSE ---
pt refusing to take anything by mouth It wont work, i just keep throwing up, I can't even brush my teeth provider notified
[2022-03-21 12:00] VITALS: BP 149/89; PULSE 136; RESP 16; TEMP 36.9; O2SAT 97
--- NOTE | 2022-03-21 12:24 | PM.EVENT ---
Event Note Date of Service: 03/21/22 Event Note: Patient seen evaluated yesterday by hospitalist team due to decreased p.o. intake. Per Psychiatry, has not eaten anything since . Patient noted to have been declining p.o. intake except for a few occasional sips of water that he reports he was subsequently spit-up. He has been producing urine which is noted to be dark yellow/brown. No nausea or vomiting. Has been noted to be anxious to the point of psychosis. Has been tachycardic to 138, no hypotension. Creatinine on 03/19 0.81, BUN 20. Recommend 1 L D5 1/2 NS at 250 mL/hr today, repeat tomorrow. Encourage p.o. intake. Continue working to treat anxiety and psychosis as per Psychiatry.
[2022-03-21 12:25] LABS: Glucose, Whole Blood 101 mg/dL (60-115)
[2022-03-21 15:03] LABS: Anion Gap 16 (12-20); Blood Urea Nitrogen 25 mg/dL (9-16); Calcium 9.3 mg/dL (8.4-10.2); Carbon Dioxide 21 mmol/L (22-29); Chloride 108 mmol/L (96-108); Creatinine Clr Calc Pharmacy 98.2; Estimated Glomerular Filt Rate > 60; Glucose Random 129 mg/dL (60-115); Potassium 3.2 mmol/L (3.3-5.1); Sodium 142 mmol/L (135-145)
--- NOTE | 2022-03-21 15:18 | PC.NURSE ---
nursing supv notified of IV start. reported she will be on unit soon
--- NOTE | 2022-03-21 15:53 | HO.PSYCHPN ---
Subjective Subjective Date of Service: 03/21/22 Reason For Visit: psychosis, delusions of persecution, SI Interim History: pt remains delusional and refusing tx. However did try to drink some water kept it down. Pt then was able to drink a few ounces of apple juice and a few ounces of milk w/out vomiting. Parents present and with encouragement from parents and radio news writer, pt agreed to have IV fluids, though maintained, it's not going to matter... However, later, when time for IV placement, pt refused. -pt reports he urinated some. Discussed case w/ parents who are worried that patient will not get IV in time to save his kidneys; radio news writer reassured him that so far, patient has consented to labwork and his kidney function remains WNL. Mental Status Exam Mental Status Exam Narrative: Pt is alert and oriented; behavior is anxious, lying on bed; dressed in casual attire with scruffy facial hair, disheveled; mood is described as I can't explain and affect congruent, anxious, distant; minimal eye contact appropriate; Speech is normal rate, volume and prosody and not pressured; no psychomotor agitation/retardation present; thought process is goal directed; Thought content is on physical ailments, hopelessness and psychosomatic delusional worries; denies any SI/HI. There is no evidence of perceptual disturbance. Patients insight and judgment are impaired. Diagnostics Vital Signs (24Hr): Vital Signs - 24 hr 03/20/22 18:00 03/20/22 21:17 03/21/22 02:00 Temperature 97.6 F 97.8 F 97.6 F Pulse Rate 126 H 122 H 119 H Respiratory Rate 16 16 16 Blood Pressure 122/86 119/84 120/82 Pulse Oximetry 97 98 97 Oxygen Delivery Method Room Air Room Air 03/21/22 08:32 03/21/22 12:00 Temperature 98.3 F 98.5 F Pulse Rate 136 H 136 H Respiratory Rate 16 16 Blood Pressure 115/78 149/89 H Pulse Oximetry 97 97 Oxygen Delivery Method Room Air Room Air BMI result Body Mass Index 37.8 Labs Results: 03/17/22 14:30 03/21/22 14:15 Labs: Laboratory Results - last 48 hr 03/19/22 03/20/22 03/20/22 16:49 10:30 21:27 Sodium 140 Potassium 4.0 Chloride 109 H Carbon Dioxide 15 L Anion Gap 20 BUN 20 H Creatinine 0.81 Estim Creat Clear Calc 107.9 Estimated GFR > 60 POC Glucose 90 83 Random Glucose 93 Calcium 9.5 03/21/22 03/21/22 12:15 14:15 Sodium 142 Potassium 3.2 L Chloride 108 Carbon Dioxide 21 L Anion Gap 16 BUN 25 H Creatinine 0.89 Estim Creat Clear Calc 98.2 Estimated GFR > 60 POC Glucose 101 Random Glucose 129 H Calcium 9.3 Imaging Radiology Impressions: ITS Impressions KUB X-Ray 03/18/22 16:35 IMPRESSION: Unremarkable examination. Medications Medications Current Medications Acetaminophen (Acetaminophen 325 Mg Tablet) 650 mg PO Q6H PRN PRN Reason: Headache/Pain Mild Scale (1-3) Al Hydroxide/Mg Hydroxide (Magnesium Hydrox/Alum Hydrox 30 Ml Oral.Susp) 30 ml PO Q6H PRN PRN Reason: Heartburn/Nausea Amlodipine Besylate (Amlodipine Besylate 5 Mg Tablet) 5 mg PO DAILY [place]; Protocol Last Admin: 03/21/22 10:27 Dose: Not Given Hydroxyzine HCl (Hydroxyzine Hcl 25 Mg Tablet) 25 mg PO Q6H PRN PRN Reason: Anxiety Dextrose/Sodium Chloride (D51/2ns) 1,000 mls @ 250 mls/hr IVCONT .Q4H [place] Stop: 03/22/22 12:59 Lorazepam (Lorazepam 1 Mg Tablet) 1 mg PO TID [place] Last Admin: 03/21/22 15:17 Dose: Not Given Lorazepam (Lorazepam 2 Mg/Ml Vial) 1 mg IVPUSH ONCE ONE Stop: 03/21/22 15:50 Lorazepam (Lorazepam 2 Mg/Ml Vial) 1 mg IVPUSH ONCE ONE Stop: 03/21/22 21:01 Magnesium Hydroxide (Milk Of Magnesia 30 Ml Oral.Susp) 30 ml PO DAILY PRN PRN Reason: Constipation Metoprolol Succinate (Metoprolol Succinate Er 25 Mg Tab.Er.24h) 25 mg PO DAILY [place]; Protocol Last Admin: 03/21/22 10:27 Dose: Not Given Pharmacy Consult (Consult Rx Perform Med Rec) 1 each MISCELLANE ONCE PRN PRN Reason: Consult order Polyethylene Glycol (Polyethylene Glycol 3350 17 Gm Powd.Pack) 17 gm PO DAILY PRN PRN Reason: constipation Sodium Biphosphate/Sodium Phosphate (Sodium Phosphate,[place]-Dibasic 133 Ml Enema) 133 ml GA ONCE PRN PRN Reason: Constipation Trazodone HCl (Trazodone Hcl 50 Mg Tablet) 50 mg PO BEDTIME PRN PRN Reason: Insomnia Allergies Allergies Allergy/AdvReac Type Severity Reaction Status Date / Time No Known Allergies Allergy Verified 03/17/22 16:59 Assessment & Plan Assessment & Plan (1) Brief psychotic disorder: Status: Acute Code(s): F23 - Brief psychotic disorder (2) MACIEL (generalized anxiety disorder): Status: Acute Code(s): F41.1 - Generalized anxiety disorder Assessment and Plan: Vs OCD (3) Somatic delusion disorder: Status: Acute Code(s): F22 - Delusional disorders (4) Thoracic aortic aneurysm: Status: Acute Code(s): I71.20 - Thoracic aortic aneurysm, without rupture, unspecified Plan HPI: pt is a 46 yo male with long hx of anxiety, thoracic aneurysm (dx Nov 2021) who presents for severe anxiety in face of difficulty eating/drinking since this past monday. Pt is accompanied by his mother.? -Pt reports that this past monday he stopped being able to eat or drink since it caused pain (pointing to area just below his xiphoid process) and wretching. -hx of severe anxiety -but no hx of psychosis; no hx lyn Patient's parents review timeline events leading up to this admission: Prior to this summer, patient was overall doing fine, worked, drove his car and for the past 2 years had no obvious problems.? Parents agree that patient is drinking likely kept his anxiety down to some degree -September:? sister got diagnosed with melanoma very upsetting for patient -September:? patient had painless hematuria, cystoscopy did have a finding but it was benign -November:? About 4 years ago patient was diagnosed with thoracic aneurysm however he has not followed up.? This past summer he was going to the emergency room multiple times for various problems and eventually agreed to thoracic CT which showed that aneurysm had increased to 4.3 mg -December:? Patient had a severely ingrown toenail which required surgical extraction -January: Patient diagnosed with macular degeneration is right eye -over these months patient has been eating less and less, saying that he had little appetite, did not like the smell of meat and has lost 20 or more lb -March: on Monday patient had bloody stool; 1st bowel movement in a week On Monday patient suddenly had chest pain and subsequent retching after drinking any fluid or eating anything On 02:30 patient went to [facility] ED, blood labs were drawn but no imaging or or labs; no fluid; long wait prompted patient to return home but he then came to [facility] where he got IV fluid HOSPITAL COURSE: .03/19 meeting w/ parents; pt anxious, lamenting that nothing can be done for him, just let him go...asking his parents to just leave him somewhere...Frit Maker asked where the side of the road? and he says yes. He denies any SI and laments i want to drink i want to eat...i just can't...i can't explain it.. but goes on to repeat that nothing can be done for him.? Patient refuses to believe that radio news writer has seeing other patients who could not eat or drink, saying that this is a unique situation.? Frit Maker and parents together tried to encourage patient to take another Ativan under his tongue, which helped yesterday however he refused and kept saying it will not help... there is no point (after patient took Ativan under his tongue he was much more reasonable and able to engage with radio news writer and agreed that perhaps he could be helped; at that time he agreed to KUB, barium swallow and thoracic CT-each intervention was explained to patient.? Patient got the KUB but was worried about the CT and eventually refused CT).? Patient refused an IV fluids for the same reason saying it is not going to help. Patient has a thoracic aneurysm and has not been taking his metoprolol or amlodipine saying he is unable to swallow.? Frit Maker discussed with patient who understands the need for these medications for his thoracic aneurysm however He refuses IV metoprolol saying it's not going to help...? Nothing is going to help....? You can not fix me.... -patient reported that he did make urine today, that it was brown and bubbly Frit Maker, Patient and mother and father discussed healthcare proxy and patient was initially ambivalent.? Frit Maker explained the details of healthcare proxy;? patient asked appropriate questions and expressed he understood and said he trusts his parents and that they are great. Patient signed healthcare proxy designating his mother and than his father as alternate. Discussed case with Hospitalist Dr. Hernandez, Dr. Zhang (GI) and wheel cleaner Dr. Serrano -Barrium swallow on hold to first r/o obstruction (per amrik Zhang) with KUB -KUB ordered (per Dr. Zhang): unremarkable -CT chest/angio/aortic ordered with IV contrast to r/o worsening thoracic aneurysm (per dr. Serrano-though considers this unlikely); pt refused -fleet enema ordered: refused 03/20 Patient remains delusional 03/21 Remains delusoinal. He was able to drink some, small amount of fluid; refused IV; again discussed w/ patient consequences of refusal but he maintains that it won't help anyway. Impression/plan: Patient has chronic anxiety, likely OCD/MACIEL, formally subdued with alcohol abuse, which at this point has reached to a psychotic level. Patient has hx of anxiety started in childhood.? However has functioned in the community with almost no history of psychiatric meds/therapy. No hx of any psychosis or lyn.? 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 Starting this summer patient has undergone a series of stressful events (sisters cancer dx; patients own illness) triggering excessive worry and he's been going to the ED for psychosomatic complaints (along with organic ones); he has become unable to function, along worse, does not drive, not attending to ADLs. His parents agree that given patient's baseline anxiety, all these events combined into overwhelming anxiety and and tipped scales for him decompensate leading to this admission.? Patient is not manic; though he has paranoid, somatic delusions, he has no known history of psychotic illness. At this point, pt's OCD/MACIEL worries about his organic medical illness have become delusional making it difficult to ascertain what is going on and whether there is an organic component to his complaint that he cannot keep down food or water. Patient has no insight that he has delusional thoughts (he had 1 fleeting moment of insight after Ativan lowered anxiety). Although he can understand possible concerns/consequences of refusing treatment (such risks of worsening kidney function,which he does not want and so he eventually consents to getting blood draws to monitor) his paranoid delusional thinking makes him think all treatments are useless, won't help him and that his situation is hopeless. He is unaware the role his anxiety plays in confounding his thinking, insisting nothing will help, even when some of his complaints could be resolved with something as simple as an enema. -Patient has been either unable or is refusing to drink any fluids; he refuses IV for fluids, refuses thoracic CT, refuses barium swallow, refuses Fleet enema, refuses occult stool test; intermittently refuses labs; refuses all medication including IM and SL); thus far he has eventually allowed labwork to monitor for kidney function.? Patient's anxiety is chronic but has reached a psychotic level and patient does not have the capacity to make medical decisions for himself. Patient has a detailed history of seeking treatment for his ailments. However, now he is disorganized; he says he wants to eat and drink, does not want to ...wants to live, does not want to damage his kidneys... however he refuses nearly all?treatments/interventions. -radio news writer has discussed case w/ hospitalist and PA PLAN: 12 B (refused to sign CV offered again by this radio news writer) q15min checks Signed HCP on 03/19/22 -if patient continues not drink and to refuse treatments, specifically IV fluids, and continues to either refused to be on able to drink fluids, he will at some point risks severe and even permanent kidney damage. -currently Patient is still making urine and labs reveal kidney function remains WNL -Will continue to assess dehydration however?without fluids patient will at some point risks severe and even permanent kidney damage. -radio news writer has discussed case with both Psychiatric Director Dr. Pérez and several hospitalists (listed throughout) -will continue to monitor labs as pt allows -Monitor for clinical signs of dehydration: Dry mucus membranes; Skin turgor, drop in blood pressure/reflex tachycardia; sunken eyes 1. Dysphagia: Psychogenic vs organic 03/21 pt was/did drink some small amount of fluid and did not vomit; made urine Negative KUB; Not bowel obstruction per dr. zhang Pt refuses Barium Swallow Pt refuses to allow CT to Assess thoracic aneurysm (given with sudden onset of substernal upper abdominal pain on eating/drinking for 3 days; possible concern for possible worsening dilation of aneurysm, though low likelihood) 2. Severe Anxiety: OCD/MACIEL that is now at a psychotic level long hx of severe anxiety starting in childhood (eat his tie in school; over the years kept at bay with etoh abus) Pt refuses all medications continue Ativan 1mg TID (can let dissolve under tongue); though pt now refuses, one time he did helped pt become rational 3. Thoracid aneurysm: refuses Metoprolol refuses Amlodipine refuses CT Continue to encourage IV for fluids Labs: Ordered repeat BMP to monitor kidney I spent minutes with the patient and/or on the patient floor today, greater than?50% of which was spent counseling/coordinating care. Patient educated on: diagnosis, medication risk/benefits and medical condition Informed Consent: does not understand Reason for contiued inpatient stay Substantial Risk for: inability to function Time Spent With Patient Time: Total time managing care of this patient today ____ minutes.
[2022-03-21 16:00] VITALS: BP 137/94; PULSE 84; RESP 18; TEMP 36.9; O2SAT 96
--- NOTE | 2022-03-21 19:38 | PC.NURSE ---
Nursing dredge operator supervisor came to unit to place IV catheter, patient refused after 15 minutes of discussion as to why he would benefit from it's placement. PT kept stating I can't do this. I just can't do this .
[2022-03-21 20:00] VITALS: BP 125/82; PULSE 122; RESP 141; TEMP 36.3; O2SAT 97
[2022-03-22 04:00] VITALS: BP 120/84; PULSE 117; RESP 16; TEMP 36.6; O2SAT 96
[2022-03-22 08:58] VITALS: BP 115/69; PULSE 101; RESP 18; TEMP 36.9; O2SAT 97
[2022-03-22 09:56] LABS: Glucose, Whole Blood 108 mg/dL (60-115)
[2022-03-22 12:10] VITALS: BP 122/91; PULSE 125; RESP 16; TEMP 36.3; O2SAT 96
--- NOTE | 2022-03-22 13:53 | PC.NURSE ---
pt refused to provide urine specimens as ordered. provider notified.
--- NOTE | 2022-03-22 15:36 | HO.PSYCHPN ---
Subjective Subjective Date of Service: 03/22/22 Reason For Visit: psychosis, delusions of persecution, SI Interim History: Patient much more calm and quiet today. Lying in the bed, he is typically very anxious when topics are broached, however he was quiet and almost despondent. Patient agreed he was so. He apologized to communications writer saying he did not want to be difficult. He just does not know what to do or say and feels hopeless. He agrees that he up until now has always sought out medical treatment for his illnesses; however he said he thinks that something beyond our control, for all of us is going on... I do not know why I was chosen to go through something like this... Patient says he feels like half of his mind has been erased. Tried to talk a little let more about his history and he thinks maybe he has been depressed but is not sure. Patient continues to refuse metoprolol or amlodipine; he knows that these medications are to help protect against his aneurysm. However he did say he wonders if the metoprolol made things worse though he cannot explain why other than to say he felt he had a reaction to it at 1st. Patient reports he made urine today. He was also able to drink a little today, taking some sips of terra sum[place] and also eating a fruit cup. No vomiting. Mac Operator discussed his lab function with him. Mac Operator also discussed having Invoked healthcare proxy and filing for involuntary commitment; patient did not respond. He however are apologized again and said I am really sorry... Mac Operator spoke with parents today and informed that healthcare proxy has been invoked; they said that they would like him to be on IV fluids and want him to continue getting lab work to monitor kidney function Mental Status Exam Mental Status Exam Narrative: Pt is alert and oriented; behavior is anxious, lying on bed; dressed in casual attire with scruffy facial hair, disheveled; mood is described as hopeless and affect congruent, depsondant, distant; minimal eye contact appropriate; Speech is normal rate, volume and prosody and not pressured; no psychomotor agitation/retardation present; thought process is goal directed; Thought content is on physical ailments, hopelessness and psychosomatic delusional worries; denies any SI/HI. There is no evidence of perceptual disturbance. Patients insight and judgment are impaired. Diagnostics Vital Signs (24Hr): Vital Signs - 24 hr 03/21/22 16:00 03/21/22 20:00 03/22/22 04:00 Temperature 98.5 F 97.3 F 98 F Pulse Rate 84 122 H 117 H Respiratory Rate 18 141 H 16 Blood Pressure 137/94 H 125/82 120/84 Pulse Oximetry 96 97 96 Oxygen Delivery Method Room Air Room Air 03/22/22 08:58 03/22/22 12:10 Temperature 98.4 F 97.3 F Pulse Rate 101 H 125 H Respiratory Rate 18 16 Blood Pressure 115/69 122/91 H Pulse Oximetry 97 96 Oxygen Delivery Method Room Air Room Air BMI result Body Mass Index 37.8 Labs Results: 03/17/22 14:30 03/21/22 14:15 Labs: Laboratory Results - last 48 hr 03/20/22 03/21/22 03/21/22 21:27 12:15 14:15 Sodium 142 Potassium 3.2 L Chloride 108 Carbon Dioxide 21 L Anion Gap 16 BUN 25 H Creatinine 0.89 Estim Creat Clear Calc 98.2 Estimated GFR > 60 POC Glucose 83 101 Random Glucose 129 H Calcium 9.3 03/22/22 09:51 Sodium Potassium Chloride Carbon Dioxide Anion Gap BUN Creatinine Estim Creat Clear Calc Estimated GFR POC Glucose 108 Random Glucose Calcium Imaging Radiology Impressions: ITS Impressions KUB X-Ray 03/18/22 16:35 IMPRESSION: Unremarkable examination. Medications Medications Current Medications Acetaminophen (Acetaminophen 325 Mg Tablet) 650 mg PO Q6H PRN PRN Reason: Headache/Pain Mild Scale (1-3) Al Hydroxide/Mg Hydroxide (Magnesium Hydrox/Alum Hydrox 30 Ml Oral.Susp) 30 ml PO Q6H PRN PRN Reason: Heartburn/Nausea Amlodipine Besylate (Amlodipine Besylate 5 Mg Tablet) 5 mg PO DAILY [facility]; Protocol Last Admin: 03/22/22 10:04 Dose: Not Given Hydroxyzine HCl (Hydroxyzine Hcl 25 Mg Tablet) 25 mg PO Q6H PRN PRN Reason: Anxiety Lorazepam (Lorazepam 1 Mg Tablet) 1 mg PO TID [facility] Last Admin: 03/22/22 10:05 Dose: Not Given Magnesium Hydroxide (Milk Of Magnesia 30 Ml Oral.Susp) 30 ml PO DAILY PRN PRN Reason: Constipation Metoprolol Succinate (Metoprolol Succinate Er 25 Mg Tab.Er.24h) 25 mg PO DAILY [facility]; Protocol Last Admin: 03/22/22 10:05 Dose: Not Given Olanzapine (Olanzapine Odt 10 Mg Tab.Rapdis) 5 mg TRANSLINGU BID [facility] Last Admin: 03/22/22 10:05 Dose: Not Given Pharmacy Consult (Consult Rx Perform Med Rec) 1 each MISCELLANE ONCE PRN PRN Reason: Consult order Polyethylene Glycol (Polyethylene Glycol 3350 17 Gm Powd.Pack) 17 gm PO DAILY PRN PRN Reason: constipation Sodium Biphosphate/Sodium Phosphate (Sodium Phosphate,Patrick-Dibasic 133 Ml Enema) 133 ml CO ONCE PRN PRN Reason: Constipation Trazodone HCl (Trazodone Hcl 50 Mg Tablet) 50 mg PO BEDTIME PRN PRN Reason: Insomnia Allergies Allergies Allergy/AdvReac Type Severity Reaction Status Date / Time No Known Allergies Allergy Verified 03/17/22 16:59 Assessment & Plan Assessment & Plan (1) Brief psychotic disorder: Status: Acute Code(s): F23 - Brief psychotic disorder (2) MACIEL (generalized anxiety disorder): Status: Acute Code(s): F41.1 - Generalized anxiety disorder Assessment and Plan: Vs OCD (3) Somatic delusion disorder: Status: Acute Code(s): F22 - Delusional disorders (4) Thoracic aortic aneurysm: Status: Acute Code(s): I71.20 - Thoracic aortic aneurysm, without rupture, unspecified Plan HPI: pt is a 46 yo male with long hx of anxiety, thoracic aneurysm (dx Nov 2021) who presents for severe anxiety in face of difficulty eating/drinking since this past monday. Pt is accompanied by his mother.? -Pt reports that this past monday he stopped being able to eat or drink since it caused pain (pointing to area just below his xiphoid process) and wretching. -hx of severe anxiety -but no hx of psychosis; no hx lyn Patient's parents review timeline events leading up to this admission: Prior to this summer, patient was overall doing fine, worked, drove his car and for the past 2 years had no obvious problems.? Parents agree that patient is drinking likely kept his anxiety down to some degree -September:? sister got diagnosed with melanoma very upsetting for patient -September:? patient had painless hematuria, cystoscopy did have a finding but it was benign -November:? About 4 years ago patient was diagnosed with thoracic aneurysm however he has not followed up.? This past summer he was going to the emergency room multiple times for various problems and eventually agreed to thoracic CT which showed that aneurysm had increased to 4.3 mg -December:? Patient had a severely ingrown toenail which required surgical extraction -January: Patient diagnosed with macular degeneration is right eye -over these months patient has been eating less and less, saying that he had little appetite, did not like the smell of meat and has lost 20 or more lb -March: on Monday patient had bloody stool; 1st bowel movement in a week On Monday patient suddenly had chest pain and subsequent retching after drinking any fluid or eating anything On 02:30 patient went to [facility] ED, blood labs were drawn but no imaging or or labs; no fluid; long wait prompted patient to return home but he then came to [facility] where he got IV fluid HOSPITAL COURSE: .03/19 meeting w/ parents; pt anxious, lamenting that nothing can be done for him, just let him go...asking his parents to just leave him somewhere...Mac Operator asked where the side of the road? and he says yes. He denies any SI and laments i want to drink i want to eat...i just can't...i can't explain it.. but goes on to repeat that nothing can be done for him.? Patient refuses to believe that communications writer has seeing other patients who could not eat or drink, saying that this is a unique situation.? Mac Operator and parents together tried to encourage patient to take another Ativan under his tongue, which helped yesterday however he refused and kept saying it will not help... there is no point (after patient took Ativan under his tongue he was much more reasonable and able to engage with communications writer and agreed that perhaps he could be helped; at that time he agreed to KUB, barium swallow and thoracic CT-each intervention was explained to patient.? Patient got the KUB but was worried about the CT and eventually refused CT).? Patient refused an IV fluids for the same reason saying it is not going to help. Patient has a thoracic aneurysm and has not been taking his metoprolol or amlodipine saying he is unable to swallow.? Mac Operator discussed with patient who understands the need for these medications for his thoracic aneurysm however He refuses IV metoprolol saying it's not going to help...? Nothing is going to help....? You can not fix me.... -patient reported that he did make urine today, that it was brown and bubbly Mac Operator, Patient and mother and father discussed healthcare proxy and patient was initially ambivalent.? Mac Operator explained the details of healthcare proxy;? patient asked appropriate questions and expressed he understood and said he trusts his parents and that they are great. Patient signed healthcare proxy designating his mother and than his father as alternate. Discussed case with Hospitalist Dr. Hernandez, Dr. Zhang (GI) and semiconductor processing technician Dr. Serrano -Barrium swallow on hold to first r/o obstruction (per amrik Zhang) with KUB -KUB ordered (per Dr. Zhang): unremarkable -CT chest/angio/aortic ordered with IV contrast to r/o worsening thoracic aneurysm (per dr. Serrano-though considers this unlikely); pt refused -fleet enema ordered: refused 03/20 Patient remains delusional 03/21 Remains delusoinal. He was able to drink some, small amount of fluid; refused IV; again discussed w/ patient consequences of refusal but he maintains that it won't help anyway. 03/22 seems more depressed today and does not respond with anxious lament when approached with questions. Remains delusional and refuses IV or any kind of medication or treatment. He seems to agree to continue allowing lab work for monitoring kidney functions. -potassium mildly low today -BUN/creatinine WNL Impression/plan: Patient has chronic anxiety, likely OCD/MACIEL, formally subdued with alcohol abuse, which at this point has reached to a psychotic level. Patient has hx of anxiety started in childhood.? However has functioned in the community with almost no history of psychiatric meds/therapy. No hx of any psychosis or lyn.? 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 Starting this summer patient has undergone a series of stressful events (sisters cancer dx; patients own illness) triggering excessive worry and he's been going to the ED for psychosomatic complaints (along with organic ones); he has become unable to function, along worse, does not drive, not attending to ADLs. His parents agree that given patient's baseline anxiety, all these events combined into overwhelming anxiety and and tipped scales for him decompensate leading to this admission.? Patient is not manic; though he has paranoid, somatic delusions, he has no known history of psychotic illness. Pt's OCD/MACIEL worries about his organic medical illness have become delusional making it difficult to ascertain what is going on and whether there is an organic component to his complaint that he cannot keep down food or water. Patient has no insight that he has delusional thoughts (he had 1 fleeting moment of insight after Ativan lowered anxiety). Although he can understand possible concerns/consequences of refusing treatment (such risks of worsening kidney function,which he does not want and so he eventually consents to getting blood draws to monitor) his paranoid delusional thinking makes him think all treatments are useless, won't help him and that his situation is hopeless. He is unaware the role his anxiety plays in confounding his thinking, insisting nothing will help, even when some of his complaints could be resolved with something as simple as an enema. -while starting to drink minimal amounts of fluid, patient has otherwise either unable or is refusing to drink fluids; he refuses IV for fluids, refuses thoracic CT, refuses barium swallow, refuses Fleet enema, refuses occult stool test; intermittently refuses labs; refuses all medication including IM and SL); thus far he has eventually allowed labwork to monitor for kidney function.? Patient's anxiety is chronic but has reached a psychotic level and patient does not have the capacity to make medical decisions for himself. Patient has a detailed history of seeking treatment for his ailments. However, now he is disorganized; he says he wants to eat and drink, does not want to ...wants to live, does not want to damage his kidneys... however he refuses nearly all?treatments/interventions. -communications writer has discussed case w/ hospitalist and TRESSA PLAN: 12 B (refused to sign CV offered again by this communications writer) q15min checks Signed HCP on 03/19/22 -INVOKE HCP: Patient has paranoid delusions that severely impair his judgment and insight and he is not able to make medical decisions for himself; he is denying treatments that he would normally accept. Healthcare proxies both informed. They want patient to get IV fluids, take amlodipine and metoprolol, continue to get lab work and engage in treatment. Patient refuses fluids, amlodipine, metoprolol or other treatments. -PURSUE CIVIL COMMITMENT for involuntary commitment and substituted judgment for patient's safety -if patient continues not drink and to refuse treatments, specifically IV fluids, and continues to either refused to be on able to drink fluids, he will at some point risks severe and even permanent kidney damage. -currently Patient is still making urine and labs reveal kidney function remains WNL -Will continue to assess dehydration however?without fluids patient will at some point risks severe and even permanent kidney damage. -communications writer has discussed case with both Psychiatric Director Dr. Pérez and several hospitalists (listed throughout) -will continue to monitor labs as pt allows -Monitor for clinical signs of dehydration: Dry mucus membranes; Skin turgor, drop in blood pressure/reflex tachycardia; sunken eyes 1. Dysphagia (food and water): Psychogenic vs organic 03/22 again kept some fluid down and eat small cup of fruit; made urine 03/21 pt was/did drink some small amount of fluid and did not vomit; made urine Negative KUB; Not bowel obstruction per dr. zhang Pt refuses Barium Swallow Pt refuses to allow CT to Assess thoracic aneurysm (given with sudden onset of substernal upper abdominal pain on eating/drinking for 3 days; possible concern for possible worsening dilation of aneurysm, though low likelihood) will monitor BMP will monitor for clinical signs of dehydration will monitor PO intake and if making urine 2. Severe Anxiety: OCD/MACIEL that is now at a psychotic level long hx of severe anxiety starting in childhood (eat his tie in school; over the years kept at bay with etoh abus) Pt refuses all medications Ativan 1mg TID (can let dissolve under tongue); though pt now refuses, one time he did helped pt become rational Ordered Zyprexa (Zydis) 5mg BID 3. Thoracid aneurysm: refuses Metoprolol refuses Amlodipine refuses CT Continue to encourage IV for fluids Labs: Ordered repeat BMP to monitor kidney I spent minutes with the patient and/or on the patient floor today, greater than?50% of which was spent counseling/coordinating care. Patient educated on: diagnosis, medication risk/benefits and medical condition Informed Consent: understands, does not understand and further education needed Reason for contiued inpatient stay Substantial Risk for: inability to function Time Spent With Patient Time: Total time managing care of this patient today ____ minutes.
[2022-03-22 16:40] VITALS: BP 126/81; PULSE 112; TEMP 36.6; O2SAT 98
[2022-03-22 21:45] VITALS: BP 111/78; PULSE 117; TEMP 36.2
[2022-03-23 09:00] VITALS: BP 115/79; PULSE 115; RESP 16; TEMP 36.6; O2SAT 97
[2022-03-23 09:55] LABS: Anion Gap 19 (12-20); Blood Urea Nitrogen 25 mg/dL (9-16); Calcium 9.5 mg/dL (8.4-10.2); Carbon Dioxide 21 mmol/L (22-29); Chloride 107 mmol/L (96-108); Creatinine Clr Calc Pharmacy 105.3; Estimated Glomerular Filt Rate > 60; Glucose Random 85 mg/dL (60-115); Potassium 3.5 mmol/L (3.3-5.1); Sodium 143 mmol/L (135-145)
[2022-03-23 10:18] LABS: Glucose, Whole Blood 102 mg/dL (60-115)
--- NOTE | 2022-03-23 10:19 | HO.PSYCHPN ---
Subjective Subjective Date of Service: 03/23/22 Reason For Visit: psychosis, delusions of persecution, SI Interim History: Patient remains delusional and despondent. He says he is not good and continues to say I do not know what I am going to do I am just lost. Buying Intern discussed reasons to try medications to which patient says it makes sense however he follows up with I just do not know......i'm in bad shape... the only thing I know is that there are no solutions.. I am certain about... Buying Intern later met with patient again while his parents were visiting; patient's parents are urged him to try medications that ticket writer is offering however patient adamantly refuses. He tried to help ticket writer and family understand by saying I do not want to , I just know there is not a chance. It is the only thing left that I do know. Family discussion about healthcare proxy and involuntary commitment which patient understands. Lytes/be on creatinine within normal limits Patient making urine Patient drink about 2 cups of water today and an orange juice box; also ate a fruit cup in [facility] Mental Status Exam Mental Status Exam Narrative: Pt is alert and oriented; behavior is anxious, lying on bed; dressed in casual attire with scruffy facial hair, disheveled; mood is described as hopeless and affect congruent, depsondant, distant; minimal eye contact appropriate; Speech is normal rate, volume and prosody and not pressured; no psychomotor agitation/retardation present; thought process is goal directed; Thought content is on physical ailments, hopelessness and psychosomatic delusional worries; denies any SI/HI. There is no evidence of perceptual disturbance. Patients insight and judgment are impaired. Diagnostics Vital Signs (24Hr): Vital Signs - 24 hr 03/22/22 12:10 03/22/22 16:40 03/22/22 21:45 Temperature 97.3 F 97.9 F 97.1 F Pulse Rate 125 H 112 H 117 H Respiratory Rate 16 Blood Pressure 122/91 H 126/81 111/78 Pulse Oximetry 96 98 Oxygen Delivery Method Room Air Room Air 03/23/22 09:00 Temperature 97.9 F Pulse Rate 115 H Respiratory Rate 16 Blood Pressure 115/79 Pulse Oximetry 97 Oxygen Delivery Method Room Air BMI result Body Mass Index 37.8 Labs Results: 03/17/22 14:30 03/23/22 08:30 Labs: Laboratory Results - last 48 hr 03/21/22 03/21/22 03/22/22 12:15 14:15 09:51 Sodium 142 Potassium 3.2 L Chloride 108 Carbon Dioxide 21 L Anion Gap 16 BUN 25 H Creatinine 0.89 Estim Creat Clear Calc 98.2 Estimated GFR > 60 POC Glucose 101 108 Random Glucose 129 H Calcium 9.3 03/23/22 03/23/22 08:30 10:12 Sodium 143 Potassium 3.5 Chloride 107 Carbon Dioxide 21 L Anion Gap 19 BUN 25 H Creatinine 0.83 Estim Creat Clear Calc 105.3 Estimated GFR > 60 POC Glucose 102 Random Glucose 85 Calcium 9.5 Imaging Radiology Impressions: ITS Impressions KUB X-Ray 03/18/22 16:35 IMPRESSION: Unremarkable examination. Medications Medications Current Medications Acetaminophen (Acetaminophen 325 Mg Tablet) 650 mg PO Q6H PRN PRN Reason: Headache/Pain Mild Scale (1-3) Al Hydroxide/Mg Hydroxide (Magnesium Hydrox/Alum Hydrox 30 Ml Oral.Susp) 30 ml PO Q6H PRN PRN Reason: Heartburn/Nausea Amlodipine Besylate (Amlodipine Besylate 5 Mg Tablet) 5 mg PO DAILY [facility]; Protocol Last Admin: 03/23/22 09:03 Dose: Not Given Hydroxyzine HCl (Hydroxyzine Hcl 25 Mg Tablet) 25 mg PO Q6H PRN PRN Reason: Anxiety Lorazepam (Lorazepam 1 Mg Tablet) 1 mg PO TID [facility] Last Admin: 03/23/22 09:03 Dose: Not Given Magnesium Hydroxide (Milk Of Magnesia 30 Ml Oral.Susp) 30 ml PO DAILY PRN PRN Reason: Constipation Metoprolol Succinate (Metoprolol Succinate Er 25 Mg Tab.Er.24h) 25 mg PO DAILY [facility]; Protocol Last Admin: 03/23/22 09:03 Dose: Not Given Olanzapine (Olanzapine Odt 10 Mg Tab.Rapdis) 5 mg TRANSLINGU BID [facility] Last Admin: 03/23/22 09:04 Dose: Not Given Pharmacy Consult (Consult Rx Perform Med Rec) 1 each MISCELLANE ONCE PRN PRN Reason: Consult order Polyethylene Glycol (Polyethylene Glycol 3350 17 Gm Powd.Pack) 17 gm PO DAILY PRN PRN Reason: constipation Sodium Biphosphate/Sodium Phosphate (Sodium Phosphate,[place]-Dibasic 133 Ml Enema) 133 ml NM ONCE PRN PRN Reason: Constipation Trazodone HCl (Trazodone Hcl 50 Mg Tablet) 50 mg PO BEDTIME PRN PRN Reason: Insomnia Allergies Allergies Allergy/AdvReac Type Severity Reaction Status Date / Time No Known Allergies Allergy Verified 03/17/22 16:59 Assessment & Plan Assessment & Plan (1) Brief psychotic disorder: Status: Acute Code(s): F23 - Brief psychotic disorder (2) MACIEL (generalized anxiety disorder): Status: Acute Code(s): F41.1 - Generalized anxiety disorder Assessment and Plan: Vs OCD (3) Somatic delusion disorder: Status: Acute Code(s): F22 - Delusional disorders (4) Thoracic aortic aneurysm: Status: Acute Code(s): I71.20 - Thoracic aortic aneurysm, without rupture, unspecified Plan HPI: pt is a 46 yo male with long hx of anxiety, thoracic aneurysm (dx Nov 2021) who presents for severe anxiety in face of difficulty eating/drinking since this past monday. Pt is accompanied by his mother.? -Pt reports that this past monday he stopped being able to eat or drink since it caused pain (pointing to area just below his xiphoid process) and wretching. -hx of severe anxiety -but no hx of psychosis; no hx lyn Patient's parents review timeline events leading up to this admission: Prior to this summer, patient was overall doing fine, worked, drove his car and for the past 2 years had no obvious problems.? Parents agree that patient is drinking likely kept his anxiety down to some degree -September:? sister got diagnosed with melanoma very upsetting for patient -September:? patient had painless hematuria, cystoscopy did have a finding but it was benign -November:? About 4 years ago patient was diagnosed with thoracic aneurysm however he has not followed up.? This past summer he was going to the emergency room multiple times for various problems and eventually agreed to thoracic CT which showed that aneurysm had increased to 4.3 mg -December:? Patient had a severely ingrown toenail which required surgical extraction -January: Patient diagnosed with macular degeneration is right eye -over these months patient has been eating less and less, saying that he had little appetite, did not like the smell of meat and has lost 20 or more lb -March: on Monday patient had bloody stool; 1st bowel movement in a week On Monday patient suddenly had chest pain and subsequent retching after drinking any fluid or eating anything On 02:30 patient went to [facility] ED, blood labs were drawn but no imaging or or labs; no fluid; long wait prompted patient to return home but he then came to [facility] where he got IV fluid HOSPITAL COURSE: .03/19 meeting w/ parents; pt anxious, lamenting that nothing can be done for him, just let him go...asking his parents to just leave him somewhere...Buying Intern asked where the side of the road? and he says yes. He denies any SI and laments i want to drink i want to eat...i just can't...i can't explain it.. but goes on to repeat that nothing can be done for him.? Patient refuses to believe that ticket writer has seeing other patients who could not eat or drink, saying that this is a unique situation.? Buying Intern and parents together tried to encourage patient to take another Ativan under his tongue, which helped yesterday however he refused and kept saying it will not help... there is no point (after patient took Ativan under his tongue he was much more reasonable and able to engage with ticket writer and agreed that perhaps he could be helped; at that time he agreed to KUB, barium swallow and thoracic CT-each intervention was explained to patient.? Patient got the KUB but was worried about the CT and eventually refused CT).? Patient refused an IV fluids for the same reason saying it is not going to help. Patient has a thoracic aneurysm and has not been taking his metoprolol or amlodipine saying he is unable to swallow.? Buying Intern discussed with patient who understands the need for these medications for his thoracic aneurysm however He refuses IV metoprolol saying it's not going to help...? Nothing is going to help....? You can not fix me.... -patient reported that he did make urine today, that it was brown and bubbly Buying Intern, Patient and mother and father discussed healthcare proxy and patient was initially ambivalent.? Buying Intern explained the details of healthcare proxy;? patient asked appropriate questions and expressed he understood and said he trusts his parents and that they are great. Patient signed healthcare proxy designating his mother and than his father as alternate. Discussed case with Hospitalist Dr. Hernandez, Dr. Zhang (GI) and machine set up operator paper goods Dr. Serrano -Barrium swallow on hold to first r/o obstruction (per amrik Zhang) with KUB -KUB ordered (per Dr. Zhang): unremarkable -CT chest/angio/aortic ordered with IV contrast to r/o worsening thoracic aneurysm (per dr. Serrano-though considers this unlikely); pt refused -fleet enema ordered: refused 03/20 Patient remains delusional 03/21 Remains delusoinal. He was able to drink some, small amount of fluid; refused IV; again discussed w/ patient consequences of refusal but he maintains that it won't help anyway. 03/22 seems more depressed today and does not respond with anxious lament when approached with questions. Remains delusional and refuses IV or any kind of medication or treatment. He seems to agree to continue allowing lab work for monitoring kidney functions. -potassium mildly low today -BUN/creatinine WNL 03/23 patient remains with paranoid delusional thinking regarding his physical health. He is trying to eat and drink and has been able to keep of food and fluids down. He continues to refuse medication of any kind, including medications prescribed by machine set up operator paper goods to prevent thoracic aneurysm from worsening. Both patient's parents/healthcare proxy want him to take medications including metoprolol and amlodipine. -lytes: WNL -BUN creatinine: WNL -patient is taking in enough fluid that his kidney function remains intact and at this time patient appears stable without IV fluids 03/24 Patient remains delusional and despondent. He says he is not good and continues to say I do not know what I am going to do I am just lost. Buying Intern discussed reasons to try medications to which patient says it makes sense however he follows up with I just do not know......i'm in bad shape... the only thing I know is that there are no solutions.. I am certain about... Buying Intern later met with patient again while his parents were visiting; patient's parents are urged him to try medications that ticket writer is offering however patient adamantly refuses. He tried to help ticket writer and family understand by saying I do not want to , I just know there is not a chance. It is the only thing left that I do know. Family discussion about healthcare proxy and involuntary commitment which patient understands. -Lytes: WNL -BUN/creatinine: WNL -Patient making urine -Patient drank about 2 cups of water by miday and drank and orange juice box; also ate a fruit cup and a tangerine -given labs and fluid intake, patient appears stable without IV fluids Impression/plan: Patient has chronic anxiety, likely OCD/MACIEL, formally subdued with alcohol abuse, which at this point has reached to a psychotic level. Patient has hx of anxiety started in childhood.? However has functioned in the community with almost no history of psychiatric meds/therapy. No hx of any psychosis or lyn.? 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 Starting this summer patient has undergone a series of stressful events (sisters cancer dx; patients own illness) triggering excessive worry and he's been going to the ED for psychosomatic complaints (along with organic ones); he has become unable to function, along worse, does not drive, not attending to ADLs. His parents agree that given patient's baseline anxiety, all these events combined into overwhelming anxiety and and tipped scales for him decompensate leading to this admission.? Patient is not manic; though he has paranoid, somatic delusions, he has no known history of psychotic illness. Pt's OCD/MACIEL worries about his organic medical illness have become delusional making it difficult to ascertain what is going on and whether there is an organic component to his complaint that he cannot keep down food or water. Patient has no insight that he has delusional thoughts (he had 1 fleeting moment of insight after Ativan lowered anxiety). Although he can understand possible concerns/consequences of refusing treatment (such risks of worsening kidney function,which he does not want and so he eventually consents to getting blood draws to monitor) his paranoid delusional thinking makes him think all treatments are useless, won't help him and that his situation is hopeless. He is unaware the role his anxiety plays in confounding his thinking, insisting nothing will help, even when some of his complaints could be resolved with something as simple as an enema. -while starting to drink minimal amounts of fluid, patient has otherwise either unable or is refusing to drink fluids; he refuses IV for fluids, refuses thoracic CT, refuses barium swallow, refuses Fleet enema, refuses occult stool test; intermittently refuses labs; refuses all medication including IM and SL); thus far he has eventually allowed labwork to monitor for kidney function.? Patient's anxiety is chronic but has reached a psychotic level and patient does not have the capacity to make medical decisions for himself. Patient has a detailed history of seeking treatment for his ailments. However, now he is disorganized; he says he wants to eat and drink, does not want to ...wants to live, does not want to damage his kidneys... however he refuses nearly all?treatments/interventions. -ticket writer has discussed case w/ hospitalist and PA PLAN: 12 B (refused to sign CV offered again by this ticket writer) q15min checks Signed HCP on 03/19/22 -INVOKE HCP: Patient has paranoid delusions that severely impair his judgment and insight and he is not able to make medical decisions for himself; he is denying treatments that he would normally accept. Healthcare proxies both informed. They want patient to get IV fluids, take amlodipine and metoprolol, continue to get lab work and engage in treatment. Patient refuses fluids, amlodipine, metoprolol or other treatments. -PURSUE CIVIL COMMITMENT for involuntary commitment and substituted judgment for patient's safety -if patient continues not drink and to refuse treatments, specifically IV fluids, and continues to either refused to be on able to drink fluids, he will at some point risks severe and even permanent kidney damage. -currently Patient is still making urine and labs reveal kidney function remains WNL -Will continue to assess dehydration however?without fluids patient will at some point risks severe and even permanent kidney damage. -ticket writer has discussed case with both Psychiatric Director Dr. Pérez and several hospitalists (listed throughout) -will continue to monitor labs as pt allows -Monitor for clinical signs of dehydration: Dry mucus membranes; Skin turgor, drop in blood pressure/reflex tachycardia; sunken eyes 1. Dysphagia (food and water): Psychogenic vs organic 03/23 patient drank a juice cup and about 2 cups of water; 8 of fruit cup and tangerine so far; still making urine; BUN creatinine and lytes within normal limits 03/22 again kept some fluid down and eat small cup of fruit; made urine 03/21 pt was/did drink some small amount of fluid and did not vomit; made urine Negative KUB; Not bowel obstruction per dr. zhang Pt refuses Barium Swallow Pt refuses to allow CT to Assess thoracic aneurysm (given with sudden onset of substernal upper abdominal pain on eating/drinking for 3 days; possible concern for possible worsening dilation of aneurysm, though low likelihood) will monitor BMP will monitor for clinical signs of dehydration will monitor PO intake and if making urine 2. Severe Anxiety: OCD/MACIEL that is now at a psychotic level long hx of severe anxiety starting in childhood (eat his tie in school; over the years kept at bay with etoh abus) Pt refuses all medications Ativan 1mg TID (can let dissolve under tongue); though pt now refuses, one time he did helped pt become rational Ordered Zyprexa (Zydis) 5mg BID 3. Thoracid aneurysm: refuses Metoprolol refuses Amlodipine refuses CT Continue to encourage IV for fluids Labs: Ordered repeat BMP to monitor kidney I spent minutes with the patient and/or on the patient floor today, greater than?50% of which was spent counseling/coordinating care. Patient educated on: diagnosis, medication risk/benefits and medical condition Informed Consent: does not understand Reason for contiued inpatient stay Substantial Risk for: inability to function Time Spent With Patient Time: Total time managing care of this patient today ____ minutes.
[2022-03-23 12:56] VITALS: BP 115/78; PULSE 86; RESP 16; TEMP 36.7; O2SAT 98
[2022-03-23 17:00] VITALS: RESP 16
[2022-03-23 19:20] VITALS: BP 113/80; PULSE 125; RESP 16; TEMP 36.9; O2SAT 98
[2022-03-23 20:55] LABS: Glucose, Whole Blood 85 mg/dL (60-115)
[2022-03-23 22:07] VITALS: RESP 16
[2022-03-24 08:30] VITALS: BP 124/80; PULSE 119; TEMP 36.5
[2022-03-24 12:00] VITALS: BP 127/93; PULSE 97; TEMP 36.2; O2SAT 98
[2022-03-24 18:00] VITALS: BP 123/96; PULSE 121; RESP 16; TEMP 36.6; O2SAT 98
--- NOTE | 2022-03-24 18:17 | HO.PSYCHPN ---
Subjective Subjective Date of Service: 03/24/22 Reason For Visit: psychosis, delusions of persecution, SI Interim History: no change; despondent; convinced all is hopeless; refuses tx of any kind so far, drank 2+cups water and ate 2 fruit cups and a pudding still making urine discussed dx; no insight discussed bathing change of cloths; pt said little motivation to do so Mental Status Exam Mental Status Exam Narrative: Pt is alert and oriented; behavior is anxious, lying on bed; dressed in casual attire with scruffy facial hair, disheveled and malodorous; mood is described as hopeless and affect congruent, depsondant, distant; minimal eye contact appropriate; Speech is normal rate, volume and prosody and not pressured; no psychomotor agitation/retardation present; thought process is goal directed; Thought content is on physical ailments, hopelessness and psychosomatic delusional worries; denies any SI/HI. There is no evidence of perceptual disturbance. Patients insight and judgment are impaired. Diagnostics Vital Signs (24Hr): Vital Signs - 24 hr 03/23/22 19:20 03/23/22 22:07 03/24/22 08:30 Temperature 98.4 F 97.7 F Pulse Rate 125 H 119 H Respiratory Rate 16 16 Blood Pressure 113/80 124/80 Pulse Oximetry 98 Oxygen Delivery Method Room Air 03/24/22 12:00 Temperature 97.1 F Pulse Rate 97 Respiratory Rate Blood Pressure 127/93 H Pulse Oximetry 98 Oxygen Delivery Method BMI result Body Mass Index 37.8 Labs Results: 03/17/22 14:30 03/23/22 08:30 Labs: Laboratory Results - last 48 hr 03/23/22 03/23/22 03/23/22 08:30 10:12 20:49 Sodium 143 Potassium 3.5 Chloride 107 Carbon Dioxide 21 L Anion Gap 19 BUN 25 H Creatinine 0.83 Estim Creat Clear Calc 105.3 Estimated GFR > 60 POC Glucose 102 85 Random Glucose 85 Calcium 9.5 Imaging Radiology Impressions: ITS Impressions KUB X-Ray 03/18/22 16:35 IMPRESSION: Unremarkable examination. Medications Medications Current Medications Acetaminophen (Acetaminophen 325 Mg Tablet) 650 mg PO Q6H PRN PRN Reason: Headache/Pain Mild Scale (1-3) Al Hydroxide/Mg Hydroxide (Magnesium Hydrox/Alum Hydrox 30 Ml Oral.Susp) 30 ml PO Q6H PRN PRN Reason: Heartburn/Nausea Amlodipine Besylate (Amlodipine Besylate 5 Mg Tablet) 5 mg PO DAILY [facility]; Protocol Last Admin: 03/24/22 09:48 Dose: Not Given Hydroxyzine HCl (Hydroxyzine Hcl 25 Mg Tablet) 25 mg PO Q6H PRN PRN Reason: Anxiety Lorazepam (Lorazepam 1 Mg Tablet) 1 mg PO TID [facility] Last Admin: 03/24/22 14:30 Dose: Not Given Magnesium Hydroxide (Milk Of Magnesia 30 Ml Oral.Susp) 30 ml PO DAILY PRN PRN Reason: Constipation Metoprolol Succinate (Metoprolol Succinate Er 25 Mg Tab.Er.24h) 25 mg PO DAILY [facility]; Protocol Last Admin: 03/24/22 09:49 Dose: Not Given Olanzapine (Olanzapine Odt 10 Mg Tab.Rapdis) 5 mg TRANSLINGU BID [facility] Last Admin: 03/24/22 09:49 Dose: Not Given Pharmacy Consult (Consult Rx Perform Med Rec) 1 each MISCELLANE ONCE PRN PRN Reason: Consult order Polyethylene Glycol (Polyethylene Glycol 3350 17 Gm Powd.Pack) 17 gm PO DAILY PRN PRN Reason: constipation Sodium Biphosphate/Sodium Phosphate (Sodium Phosphate,[place]-Dibasic 133 Ml Enema) 133 ml ND ONCE PRN PRN Reason: Constipation Trazodone HCl (Trazodone Hcl 50 Mg Tablet) 50 mg PO BEDTIME PRN PRN Reason: Insomnia Allergies Allergies Allergy/AdvReac Type Severity Reaction Status Date / Time No Known Allergies Allergy Verified 03/17/22 16:59 Assessment & Plan Assessment & Plan (1) Brief psychotic disorder: Status: Acute Code(s): F23 - Brief psychotic disorder (2) MACIEL (generalized anxiety disorder): Status: Acute Code(s): F41.1 - Generalized anxiety disorder Assessment and Plan: Vs OCD (3) Somatic delusion disorder: Status: Acute Code(s): F22 - Delusional disorders (4) Thoracic aortic aneurysm: Status: Acute Code(s): I71.20 - Thoracic aortic aneurysm, without rupture, unspecified Plan HPI: pt is a 46 yo male with long hx of anxiety, thoracic aneurysm (dx Nov 2021) who presents for severe anxiety in face of difficulty eating/drinking since this past monday. Pt is accompanied by his mother.? -Pt reports that this past monday he stopped being able to eat or drink since it caused pain (pointing to area just below his xiphoid process) and wretching. -hx of severe anxiety -but no hx of psychosis; no hx lyn Recent Timeline of events leading to admission: Patient's parents review timeline events leading up to this admission: Prior to this summer, patient was overall doing fine, worked, drove his car and for the past 2 years had no obvious problems.? Parents agree that patient is drinking likely kept his anxiety down to some degree -September:? sister got diagnosed with melanoma very upsetting for patient -September:? patient had painless hematuria, cystoscopy did have a finding but it was benign -November:? About 4 years ago patient was diagnosed with thoracic aneurysm however he has not followed up.? This past summer he was going to the emergency room multiple times for various problems and eventually agreed to thoracic CT which showed that aneurysm had increased to 4.3 mg -December:? Patient had a severely ingrown toenail which required surgical extraction -January: Patient diagnosed with macular degeneration is right eye -over these months patient has been eating less, saying had little appetite, did not like smell of meat and has lost 20 or more lb Just prior to admission: -on Monday patient had bloody stool; 1st bowel movement in a week -On Monday patient suddenly had chest pain and subsequent retching after drinking any fluid or eating anything -On 02:30 patient went to [facility] ED, blood labs were drawn but no imaging or or labs; no fluid; long wait prompted patient to return home but he then came to [place] ED where he got IV fluid HOSPITAL COURSE: 03/19 meeting w/ parents; pt anxious, lamenting that nothing can be done for him, just let him go...asking his parents to just leave him somewhere...Sales Support Engineer asked where the side of the road? and he says yes. He denies any SI and laments i want to drink i want to eat...i just can't...i can't explain it.. but goes on to repeat that nothing can be done for him.? Patient refuses to believe that tag writer has seeing other patients who could not eat or drink, saying that this is a unique situation.? Sales Support Engineer and parents together tried to encourage patient to take another Ativan under his tongue, which helped yesterday however he refused and kept saying it will not help... there is no point (after patient took Ativan under his tongue he was much more reasonable and able to engage with tag writer and agreed that perhaps he could be helped; at that time he agreed to KUB, barium swallow and thoracic CT-each intervention was explained to patient.? Patient got the KUB but was worried about the CT and eventually refused CT).? Patient refused an IV fluids for the same reason saying it is not going to help. Patient has a thoracic aneurysm and has not been taking his metoprolol or amlodipine saying he is unable to swallow.? Sales Support Engineer discussed with patient who understands the need for these medications for his thoracic aneurysm however He refuses IV metoprolol saying it's not going to help...? Nothing is going to help....? You can not fix me.... -patient reported that he did make urine today, that it was brown and bubbly Sales Support Engineer, Patient and mother and father discussed healthcare proxy and patient was initially ambivalent.? Sales Support Engineer explained the details of healthcare proxy;? patient asked appropriate questions and expressed he understood and said he trusts his parents and that they are great. Patient signed healthcare proxy designating his mother and than his father as alternate. Discussed case with Hospitalist Dr. Hernandez, Dr. Law (GI) and financial counselor Dr. Serrano -Barrium swallow on hold to first r/o obstruction (per amrik Law) with KUB -KUB ordered (per Dr. Law): unremarkable -CT chest/angio/aortic ordered with IV contrast to r/o worsening thoracic aneurysm (per dr. Serrano-though considers this unlikely); pt refused -fleet enema ordered: refused 03/20 Patient remains delusional 03/21 Remains delusoinal. He was able to drink some, small amount of fluid; refused IV; again discussed w/ patient consequences of refusal but he maintains that it won't help anyway. 03/22 seems more depressed today and does not respond with anxious lament when approached with questions. Remains delusional and refuses IV or any kind of medication or treatment. He seems to agree to continue allowing lab work for monitoring kidney functions. -potassium mildly low today -BUN/creatinine WNL 03/23 patient remains with paranoid delusional thinking regarding his physical health. He is trying to eat and drink and has been able to keep of food and fluids down. He continues to refuse medication of any kind, including medications prescribed by financial counselor to prevent thoracic aneurysm from worsening. Both patient's parents/healthcare proxy want him to take medications including metoprolol and amlodipine. -lytes: WNL -BUN creatinine: WNL -patient is taking in enough fluid that his kidney function remains intact and at this time patient appears stable without IV fluids 03/24 Patient remains delusional and despondent. He says he is not good and continues to say I do not know what I am going to do I am just lost. Sales Support Engineer discussed reasons to try medications to which patient says it makes sense however he follows up with I just do not know......i'm in bad shape... the only thing I know is that there are no solutions.. I am certain about... Sales Support Engineer later met with patient again while his parents were visiting; patient's parents are urged him to try medications that tag writer is offering however patient adamantly refuses. He tried to help tag writer and family understand by saying I do not want to , I just know there is not a chance. It is the only thing left that I do know. Family discussion about healthcare proxy and involuntary commitment which patient understands. -Lytes: WNL -BUN/creatinine: WNL -Patient making urine -Patient drank about 2 cups of water by miday and drank and orange juice box; also ate a fruit cup and a tangerine -given labs and fluid intake, patient appears stable without IV fluids Impression/plan: Patient has chronic anxiety, likely OCD/MACIEL, formally subdued with alcohol abuse, which at this point has reached to a psychotic level. Patient has hx of anxiety started in childhood.? However has functioned in the community with almost no history of psychiatric meds/therapy. No hx of any psychosis or lyn.? 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 Starting this summer patient has undergone a series of stressful events (sisters cancer dx; patients own illness) triggering excessive worry and he's been going to the ED for psychosomatic complaints (along with organic ones); he has become unable to function, along worse, does not drive, not attending to ADLs. His parents agree that given patient's baseline anxiety, all these events combined into overwhelming anxiety and and tipped scales for him decompensate leading to this admission.? Patient is not manic; though he has paranoid, somatic delusions, he has no known history of psychotic illness. Pt's OCD/MACIEL worries about his organic medical illness have become delusional making it difficult to ascertain what is going on and whether there is an organic component to his complaint that he cannot keep down food or water. Patient has no insight that he has delusional thoughts (he had 1 fleeting moment of insight after Ativan lowered anxiety). Although he can understand possible concerns/consequences of refusing treatment (such risks of worsening kidney function,which he does not want and so he eventually consents to getting blood draws to monitor) his paranoid delusional thinking makes him think all treatments are useless, won't help him and that his situation is hopeless. He is unaware the role his anxiety plays in confounding his thinking, insisting nothing will help, even when some of his complaints could be resolved with something as simple as an enema. -while starting to drink minimal amounts of fluid, patient has otherwise either unable or is refusing to drink fluids; he refuses IV for fluids, refuses thoracic CT, refuses barium swallow, refuses Fleet enema, refuses occult stool test; intermittently refuses labs; refuses all medication including IM and SL); thus far he has eventually allowed labwork to monitor for kidney function.? Patient's anxiety is chronic but has reached a psychotic level and patient does not have the capacity to make medical decisions for himself. Patient has a detailed history of seeking treatment for his ailments. However, now he is disorganized; he says he wants to eat and drink, does not want to ...wants to live, does not want to damage his kidneys... however he refuses nearly all?treatments/interventions. -tag writer has discussed case w/ hospitalist and TRESSA PLAN: 12 B (refused to sign CV offered again by this tag writer) q15min checks -Signed HCP on 03/19/22 -INVOKE HCP: Patient has paranoid delusions that severely impair his judgment and insight and he is not able to make medical decisions for himself; he is denying treatments that he would normally accept. Healthcare proxies both informed. They want patient to get IV fluids, take amlodipine and metoprolol, continue to get lab work and engage in treatment. Patient refuses fluids, amlodipine, metoprolol or other treatments. -Health care proxy has been invoked; it has not yet been affirmed by the court; HCP cannot yet direct tx -Healthcare proxies are patient's parents: both want him to have any intervention needed want patient to take Metoprolol/amlodipne for thoracic aneurysm. -PURSUE CIVIL COMMITMENT for involuntary commitment and substituted judgment for patient's safety -pt w/ psychotic delusional beliefs impairing insight/judgment; refusal (or inability) to regularly take PO fluids, risks severe and/or permanent kidney damage unless IV fluids provided. Refusing to take metroprolol/amlodipine risks worsening thoracic aneurysm, which untreated can become deadly. Case discussed case with both Dr. Pérez and several hospitalists (listed throughout) SIGN OUT SUMMARY Patient has OCD/MACIEL/Somatic disorder that has become to a psychotic level; dx with brief psychotic disorder secondary to exacerbation of chronic anxiety; no hx of psychosis/lyn at all; no hx of similar presentation; up to this summer was at baseline, working, functional? A. Minimal PO intake fluid/food: most likely psychogenic (KUB negative; refused barium swallow) -initially not drinking or eating -pt has been drinking about 2 cups of water per day and 1-2 juice boxes per day; maybe more (and eating 2 fruit cups per day) -still making urine (has been daily) -Bun/Cr and Lytes remain WNL. Now checking every other day *as long as he continues to drink fluids, it looks like his kidney function remains stable.? TO DO:? 1. check bun/cr and lytes (as long as drinking fluid can be every other day)? 2. Ask if making urine daily; monitor for clinical signs of dehydration 3. if dysfunction arises call hospitalist; if patient needs emergent IV fluids or any treatment and refuses, two doctors need document that patient needs the intervention for life-saving reasons (ex: risking kidneys); HCP not yet affirmed so they cannot yet direct tx B. OCD/MACIEL/paranoid delusion/somatic disorder (hx severe anxiety since childhood; coped w/ Etoh abuse; sober 1 yr) -Patient is severely anxious and convinced that nothing can be done for him; he has a history of seeking treatment for medical illness and if thinking clearly, would do so now. -He does not want to or harm his body, however he is convinced it Is hopeless.? -Ativan 1mg TID (refuses) -Zyprexa Zydis 5mg BID (refuses) -Patient refuses any psychotropic medications. One limited trial of lexapro maybe seven years ago.? C. Thoracic aneurysm: -Patient prescribed Metoprolol/amlodipne; both ordered -Patient refuses both (thinks situation hopeless) -Pt refuses to allow CT to Assess thoracic aneurysm (last assessed Nov 2021 at 4.3cm; however while he initially c/o of ?sudden onset of substernal upper abdominal pain on eating/drinking, this complaint seems to have resolved making it a low concern for worsening dilation of aneurysm) Patient educated on: diagnosis, medication risk/benefits and medical condition Informed Consent: does not understand Reason for contiued inpatient stay Substantial Risk for: inability to function Time Spent With Patient Time: Total time managing care of this patient today ____ minutes.
[2022-03-25 08:13] VITALS: BP 141/69; PULSE 122; RESP 18; TEMP 36.3; O2SAT 97
--- NOTE | 2022-03-25 09:42 | HO.PSYCHPN ---
Subjective Subjective Date of Service: 03/25/22 Reason For Visit: psychosis, delusions of persecution, SI Subjective Notes: Section 7 Healthcare Proxy: Yes Interim History: For the patient's case is reviewed with Dr. Vanessa patient seen chart reviewed case reviewed in treatment planning. Patient taking in very limited food and fluids patient remains fixed in belief that nothing can help him some ongoing social withdrawal and isolation he did agree to getting labs The patient is withdrawn and isolative Mental Status Exam Mental Status Exam Patient Appearance: Disheveled and Perspiring Patient Orientation: Person, Place and Situation Level of Consciousness: Awake Patient Behavior: Guarded, Anxious and Resistive to Care Behavior Comments: Irritability noted Mood Description: Constricted, Anxious and Apprehensive Affect Description: Suspicious, Constricted and Apprehensive Speech Pattern: Clear Thought Process: Rumination Thought Content: positive for Perseveration, positive for Preoccupation, positive for Hypochondriasis and negative for Suicidal Ideation Depressive Symptoms: Increased Anxiety, Loss of Int. in Activity, Hopelessness, Increased Fatigue and Loss of Energy Judgement: Poor Judgement and Insight: Patient with marked lack of insight in judgment difficulty with self-care taking it food in fluids minimally cannot explain his behavior physically preoccupied preoccupied with his body but unable to explain what he is feeling resistant irritable to taking in any alternative information or explanation regarding diagnosis or treatment states he is not looking to but unable to explain why he will not take in more than minimal food or fluids Diagnostics Vital Signs (24Hr): Vital Signs - 24 hr 03/24/22 12:00 03/24/22 18:00 03/25/22 08:13 Temperature 97.1 F 98 F 97.4 F Pulse Rate 97 121 H 122 H Respiratory Rate 16 18 Blood Pressure 127/93 H 123/96 H 141/69 H Pulse Oximetry 98 98 97 Oxygen Delivery Method Room Air Room Air BMI result Body Mass Index 37.8 Labs Results: 03/17/22 14:30 03/25/22 08:27 Labs: Laboratory Results - last 48 hr 03/23/22 03/23/22 03/23/22 08:30 10:12 20:49 Sodium 143 Potassium 3.5 Chloride 107 Carbon Dioxide 21 L Anion Gap 19 BUN 25 H Creatinine 0.83 Estim Creat Clear Calc 105.3 Estimated GFR > 60 POC Glucose 102 85 Random Glucose 85 Calcium 9.5 Imaging Radiology Impressions: ITS Impressions KUB X-Ray 03/18/22 16:35 IMPRESSION: Unremarkable examination. Medications Medications Current Medications Acetaminophen (Acetaminophen 325 Mg Tablet) 650 mg PO Q6H PRN PRN Reason: Headache/Pain Mild Scale (1-3) Al Hydroxide/Mg Hydroxide (Magnesium Hydrox/Alum Hydrox 30 Ml Oral.Susp) 30 ml PO Q6H PRN PRN Reason: Heartburn/Nausea Amlodipine Besylate (Amlodipine Besylate 5 Mg Tablet) 5 mg PO DAILY [facility]; Protocol Last Admin: 03/25/22 08:51 Dose: Not Given Hydroxyzine HCl (Hydroxyzine Hcl 25 Mg Tablet) 25 mg PO Q6H PRN PRN Reason: Anxiety Lorazepam (Lorazepam 1 Mg Tablet) 1 mg PO TID [facility] Last Admin: 03/25/22 08:52 Dose: Not Given Magnesium Hydroxide (Milk Of Magnesia 30 Ml Oral.Susp) 30 ml PO DAILY PRN PRN Reason: Constipation Metoprolol Succinate (Metoprolol Succinate Er 25 Mg Tab.Er.24h) 25 mg PO DAILY [facility]; Protocol Last Admin: 03/25/22 08:52 Dose: Not Given Olanzapine (Olanzapine Odt 10 Mg Tab.Rapdis) 5 mg TRANSLINGU BID [facility] Last Admin: 03/25/22 08:53 Dose: Not Given Pharmacy Consult (Consult Rx Perform Med Rec) 1 each MISCELLANE ONCE PRN PRN Reason: Consult order Polyethylene Glycol (Polyethylene Glycol 3350 17 Gm Powd.Pack) 17 gm PO DAILY PRN PRN Reason: constipation Sodium Biphosphate/Sodium Phosphate (Sodium Phosphate,Rapides-Dibasic 133 Ml Enema) 133 ml ME ONCE PRN PRN Reason: Constipation Trazodone HCl (Trazodone Hcl 50 Mg Tablet) 50 mg PO BEDTIME PRN PRN Reason: Insomnia Allergies Allergies Allergy/AdvReac Type Severity Reaction Status Date / Time No Known Allergies Allergy Verified 03/17/22 16:59 Assessment & Plan Assessment & Plan (1) Brief psychotic disorder: Status: Acute Code(s): F23 - Brief psychotic disorder (2) MACIEL (generalized anxiety disorder): Status: Acute Code(s): F41.1 - Generalized anxiety disorder Assessment and Plan: Vs OCD (3) Somatic delusion disorder: Status: Acute Code(s): F22 - Delusional disorders (4) Thoracic aortic aneurysm: Status: Acute Code(s): I71.20 - Thoracic aortic aneurysm, without rupture, unspecified Plan HPI: pt is a 46 yo male with long hx of anxiety, thoracic aneurysm (dx Nov 2021) who presents for severe anxiety in face of difficulty eating/drinking since this past monday. Pt is accompanied by his mother.? -Pt reports that this past monday he stopped being able to eat or drink since it caused pain (pointing to area just below his xiphoid process) and wretching. -hx of severe anxiety -but no hx of psychosis; no hx lyn Patient's parents review timeline events leading up to this admission: Prior to this summer, patient was overall doing fine, worked, drove his car and for the past 2 years had no obvious problems.? Parents agree that patient is drinking likely kept his anxiety down to some degree -September:? sister got diagnosed with melanoma very upsetting for patient -September:? patient had painless hematuria, cystoscopy did have a finding but it was benign -November:? About 4 years ago patient was diagnosed with thoracic aneurysm however he has not followed up.? This past summer he was going to the emergency room multiple times for various problems and eventually agreed to thoracic CT which showed that aneurysm had increased to 4.3 mg -December:? Patient had a severely ingrown toenail which required surgical extraction -January: Patient diagnosed with macular degeneration is right eye -over these months patient has been eating less and less, saying that he had little appetite, did not like the smell of meat and has lost 20 or more lb -March: on Monday patient had bloody stool; 1st bowel movement in a week On Monday patient suddenly had chest pain and subsequent retching after drinking any fluid or eating anything On 02:30 patient went to [facility] ED, blood labs were drawn but no imaging or or labs; no fluid; long wait prompted patient to return home but he then came to [place] ED where he got IV fluid HOSPITAL COURSE: .03/19 meeting w/ parents; pt anxious, lamenting that nothing can be done for him, just let him go...asking his parents to just leave him somewhere...Professor Of Anthropology asked where the side of the road? and he says yes. He denies any SI and laments i want to drink i want to eat...i just can't...i can't explain it.. but goes on to repeat that nothing can be done for him.? Patient refuses to believe that administrative underwriter has seeing other patients who could not eat or drink, saying that this is a unique situation.? Professor Of Anthropology and parents together tried to encourage patient to take another Ativan under his tongue, which helped yesterday however he refused and kept saying it will not help... there is no point (after patient took Ativan under his tongue he was much more reasonable and able to engage with administrative underwriter and agreed that perhaps he could be helped; at that time he agreed to KUB, barium swallow and thoracic CT-each intervention was explained to patient.? Patient got the KUB but was worried about the CT and eventually refused CT).? Patient refused an IV fluids for the same reason saying it is not going to help. Patient has a thoracic aneurysm and has not been taking his metoprolol or amlodipine saying he is unable to swallow.? Professor Of Anthropology discussed with patient who understands the need for these medications for his thoracic aneurysm however He refuses IV metoprolol saying it's not going to help...? Nothing is going to help....? You can not fix me.... -patient reported that he did make urine today, that it was brown and bubbly Professor Of Anthropology, Patient and mother and father discussed healthcare proxy and patient was initially ambivalent.? Professor Of Anthropology explained the details of healthcare proxy;? patient asked appropriate questions and expressed he understood and said he trusts his parents and that they are great. Patient signed healthcare proxy designating his mother and than his father as alternate. Discussed case with Hospitalist Dr. Hernandez, Dr. Zhang (GI) and materials research engineer Dr. Serrano -[facility] swallow on hold to first r/o obstruction (per amrik Zhang) with KUB -KUB ordered (per Dr. Zhang): unremarkable -CT chest/angio/aortic ordered with IV contrast to r/o worsening thoracic aneurysm (per dr. Serrano-though considers this unlikely); pt refused -fleet enema ordered: refused 03/20 Patient remains delusional 03/21 Remains delusoinal. He was able to drink some, small amount of fluid; refused IV; again discussed w/ patient consequences of refusal but he maintains that it won't help anyway. 03/22 seems more depressed today and does not respond with anxious lament when approached with questions. Remains delusional and refuses IV or any kind of medication or treatment. He seems to agree to continue allowing lab work for monitoring kidney functions. -potassium mildly low today -BUN/creatinine WNL 03/23 patient remains with paranoid delusional thinking regarding his physical health. He is trying to eat and drink and has been able to keep of food and fluids down. He continues to refuse medication of any kind, including medications prescribed by materials research engineer to prevent thoracic aneurysm from worsening. Both patient's parents/healthcare proxy want him to take medications including metoprolol and amlodipine. -lytes: WNL -BUN creatinine: WNL -patient is taking in enough fluid that his kidney function remains intact and at this time patient appears stable without IV fluids 03/24 Patient remains delusional and despondent. He says he is not good and continues to say I do not know what I am going to do I am just lost. Professor Of Anthropology discussed reasons to try medications to which patient says it makes sense however he follows up with I just do not know......i'm in bad shape... the only thing I know is that there are no solutions.. I am certain about... Professor Of Anthropology later met with patient again while his parents were visiting; patient's parents are urged him to try medications that administrative underwriter is offering however patient adamantly refuses. He tried to help administrative underwriter and family understand by saying I do not want to , I just know there is not a chance. It is the only thing left that I do know. Family discussion about healthcare proxy and involuntary commitment which patient understands. -Lytes: WNL -BUN/creatinine: WNL -Patient making urine -Patient drank about 2 cups of water by miday and drank and orange juice box; also ate a fruit cup and a tangerine -given labs and fluid intake, patient appears stable without IV fluids 03/25/2022 Patient remains anxious despondent to me a appears to be psychotically depressed somatically delusional and on able to take in information or explain his self cyst drug active and potentially life-threatening behavior if he markedly limits food and fluids based on no rational explanation. Refusing medical workup. Patient has upcoming court hearing for retention and treatment plan. Try to develop therapeutic [place] encourage labs every other day monitor food and fluid intake may intermittently need IV fluids If patient remains acute may benefit from ECT treatment which would have a more acute impact potentially Impression/plan: Patient has chronic anxiety, likely OCD/MACIEL, formally subdued with alcohol abuse, which at this point has reached to a psychotic level. Patient has hx of anxiety started in childhood.? However has functioned in the community with almost no history of psychiatric meds/therapy. No hx of any psychosis or lyn.? 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 Starting this summer patient has undergone a series of stressful events (sisters cancer dx; patients own illness) triggering excessive worry and he's been going to the ED for psychosomatic complaints (along with organic ones); he has become unable to function, along worse, does not drive, not attending to ADLs. His parents agree that given patient's baseline anxiety, all these events combined into overwhelming anxiety and and tipped scales for him decompensate leading to this admission.? Patient is not manic; though he has paranoid, somatic delusions, he has no known history of psychotic illness. Pt's OCD/MACIEL worries about his organic medical illness have become delusional making it difficult to ascertain what is going on and whether there is an organic component to his complaint that he cannot keep down food or water. Patient has no insight that he has delusional thoughts (he had 1 fleeting moment of insight after Ativan lowered anxiety). Although he can understand possible concerns/consequences of refusing treatment (such risks of worsening kidney function,which he does not want and so he eventually consents to getting blood draws to monitor) his paranoid delusional thinking makes him think all treatments are useless, won't help him and that his situation is hopeless. He is unaware the role his anxiety plays in confounding his thinking, insisting nothing will help, even when some of his complaints could be resolved with something as simple as an enema. -while starting to drink minimal amounts of fluid, patient has otherwise either unable or is refusing to drink fluids; he refuses IV for fluids, refuses thoracic CT, refuses barium swallow, refuses Fleet enema, refuses occult stool test; intermittently refuses labs; refuses all medication including IM and SL); thus far he has eventually allowed labwork to monitor for kidney function.? Patient's anxiety is chronic but has reached a psychotic level and patient does not have the capacity to make medical decisions for himself. Patient has a detailed history of seeking treatment for his ailments. However, now he is disorganized; he says he wants to eat and drink, does not want to ...wants to live, does not want to damage his kidneys... however he refuses nearly all?treatments/interventions. -administrative underwriter has discussed case w/ hospitalist and PA PLAN: 12 B (refused to sign CV offered again by this administrative underwriter) q15min checks Signed HCP on 03/19/22 -INVOKE HCP: Patient has paranoid delusions that severely impair his judgment and insight and he is not able to make medical decisions for himself; he is denying treatments that he would normally accept. Healthcare proxies both informed. They want patient to get IV fluids, take amlodipine and metoprolol, continue to get lab work and engage in treatment. Patient refuses fluids, amlodipine, metoprolol or other treatments. -PURSUE CIVIL COMMITMENT for involuntary commitment and substituted judgment for patient's safety -if patient continues not drink and to refuse treatments, specifically IV fluids, and continues to either refused to be on able to drink fluids, he will at some point risks severe and even permanent kidney damage. -currently Patient is still making urine and labs reveal kidney function remains WNL -Will continue to assess dehydration however?without fluids patient will at some point risks severe and even permanent kidney damage. -administrative underwriter has discussed case with both Psychiatric Director Dr. Pérez and several hospitalists (listed throughout) -will continue to monitor labs as pt allows -Monitor for clinical signs of dehydration: Dry mucus membranes; Skin turgor, drop in blood pressure/reflex tachycardia; sunken eyes 1. Dysphagia (food and water): Psychogenic vs organic 03/23 patient drank a juice cup and about 2 cups of water; 8 of fruit cup and tangerine so far; still making urine; BUN creatinine and lytes within normal limits 03/22 again kept some fluid down and eat small cup of fruit; made urine 03/21 pt was/did drink some small amount of fluid and did not vomit; made urine Negative KUB; Not bowel obstruction per dr. zhang Pt refuses Barium Swallow Pt refuses to allow CT to Assess thoracic aneurysm (given with sudden onset of substernal upper abdominal pain on eating/drinking for 3 days; possible concern for possible worsening dilation of aneurysm, though low likelihood) will monitor BMP will monitor for clinical signs of dehydration will monitor PO intake and if making urine 2. Severe Anxiety: OCD/MACIEL that is now at a psychotic level long hx of severe anxiety starting in childhood (eat his tie in school; over the years kept at bay with etoh abus) Pt refuses all medications Ativan 1mg TID (can let dissolve under tongue); though pt now refuses, one time he did helped pt become rational Ordered Zyprexa (Zydis) 5mg BID 3. Thoracid aneurysm: refuses Metoprolol refuses Amlodipine refuses CT Continue to encourage IV for fluids Labs: Ordered repeat BMP to monitor kidney Reason for contiued inpatient stay Substantial Risk for: harm to self, inability to function and med/psych decompensation Time Spent With Patient Time: Total time managing care of this patient today ____ minutes.
[2022-03-25 11:56] LABS: Anion Gap 18 (12-20); Blood Urea Nitrogen 20 mg/dL (9-16); Calcium 9.2 mg/dL (8.4-10.2); Carbon Dioxide 22 mmol/L (22-29); Chloride 107 mmol/L (96-108); Estimated Glomerular Filt Rate > 60; Glucose Random 74 mg/dL (60-115); Potassium 3.7 mmol/L (3.3-5.1); Sodium 143 mmol/L (135-145)
[2022-03-25 12:00] VITALS: RESP 16
[2022-03-25 16:00] VITALS: BP 122/78; PULSE 102; TEMP 36.2; O2SAT 96
[2022-03-25 20:00] VITALS: RESP 16
--- NOTE | 2022-03-26 11:13 | HO.PSYCHPN ---
Subjective Subjective Date of Service: 03/26/22 Reason For Visit: psychosis, delusions of persecution, SI Subjective Notes: Section 7 Interim History: Patient was seen and discussed in rounds today. Records and plans were reviewed. He had a good visit with his parents yesterday. He is safe. He continues to be depressed. Not attending to his ADLs. Refusing meds. Eating and drinking very limited amounts. Laboratory studies of yesterday were reviewed which shows, elevated BUN probably secondary to hemoconcentration. No SI. Mental Status Exam Mental Status Exam Patient Appearance: Disheveled and Perspiring Patient Orientation: Person, Place and Situation Level of Consciousness: Awake Patient Behavior: Guarded, Anxious and Resistive to Care Behavior Comments: Irritability noted Mood Description: Constricted, Anxious and Apprehensive Affect Description: Suspicious, Constricted and Apprehensive Speech Pattern: Clear Thought Process: Rumination Thought Content: positive for Perseveration, positive for Preoccupation, positive for Hypochondriasis and negative for Suicidal Ideation Depressive Symptoms: Increased Anxiety, Loss of Int. in Activity, Hopelessness, Increased Fatigue and Loss of Energy Judgement: Poor Judgement and Insight: Patient with marked lack of insight in judgment difficulty with self-care taking it food in fluids minimally cannot explain his behavior physically preoccupied preoccupied with his body but unable to explain what he is feeling resistant irritable to taking in any alternative information or explanation regarding diagnosis or treatment states he is not looking to but unable to explain why he will not take in more than minimal food or fluids Diagnostics Vital Signs (24Hr): Vital Signs - 24 hr 03/25/22 12:00 03/25/22 16:00 03/25/22 20:00 Temperature 97.1 F Pulse Rate 102 H Respiratory Rate 16 16 Blood Pressure 122/78 Pulse Oximetry 96 Oxygen Delivery Method Room Air BMI result Body Mass Index 37.8 Labs Results: 03/17/22 14:30 03/25/22 08:27 Labs: Laboratory Results - last 48 hr 03/25/22 03/26/22 08:27 08:30 Sodium 143 Potassium 3.7 Chloride 107 Carbon Dioxide 22 Anion Gap 18 BUN 20 H Creatinine 0.78 Estim Creat Clear Calc 112.0 Estimated GFR > 60 POC Glucose 72 Random Glucose 74 Calcium 9.2 Imaging Radiology Impressions: ITS Impressions KUB X-Ray 03/18/22 16:35 IMPRESSION: Unremarkable examination. Medications Medications Current Medications Acetaminophen (Acetaminophen 325 Mg Tablet) 650 mg PO Q6H PRN PRN Reason: Headache/Pain Mild Scale (1-3) Al Hydroxide/Mg Hydroxide (Magnesium Hydrox/Alum Hydrox 30 Ml Oral.Susp) 30 ml PO Q6H PRN PRN Reason: Heartburn/Nausea Amlodipine Besylate (Amlodipine Besylate 5 Mg Tablet) 5 mg PO DAILY [facility]; Protocol Last Admin: 03/26/22 09:39 Dose: Not Given Hydroxyzine HCl (Hydroxyzine Hcl 25 Mg Tablet) 25 mg PO Q6H PRN PRN Reason: Anxiety Lorazepam (Lorazepam 1 Mg Tablet) 1 mg PO TID [facility] Last Admin: 03/26/22 09:39 Dose: Not Given Magnesium Hydroxide (Milk Of Magnesia 30 Ml Oral.Susp) 30 ml PO DAILY PRN PRN Reason: Constipation Metoprolol Succinate (Metoprolol Succinate Er 25 Mg Tab.Er.24h) 25 mg PO DAILY [facility]; Protocol Last Admin: 03/26/22 09:39 Dose: Not Given Olanzapine (Olanzapine Odt 10 Mg Tab.Rapdis) 5 mg TRANSLINGU BID [facility] Last Admin: 03/26/22 09:40 Dose: Not Given Pharmacy Consult (Consult Rx Perform Med Rec) 1 each MISCELLANE ONCE PRN PRN Reason: Consult order Polyethylene Glycol (Polyethylene Glycol 3350 17 Gm Powd.Pack) 17 gm PO DAILY PRN PRN Reason: constipation Sodium Biphosphate/Sodium Phosphate (Sodium Phosphate,Taliaferro-Dibasic 133 Ml Enema) 133 ml [place] ONCE PRN PRN Reason: Constipation Trazodone HCl (Trazodone Hcl 50 Mg Tablet) 50 mg PO BEDTIME PRN PRN Reason: Insomnia Allergies Allergies Allergy/AdvReac Type Severity Reaction Status Date / Time No Known Allergies Allergy Verified 03/17/22 16:59 Assessment & Plan Assessment & Plan (1) Brief psychotic disorder: Status: Acute Code(s): F23 - Brief psychotic disorder (2) MACIEL (generalized anxiety disorder): Status: Acute Code(s): F41.1 - Generalized anxiety disorder Assessment and Plan: Vs OCD (3) Somatic delusion disorder: Status: Acute Code(s): F22 - Delusional disorders (4) Thoracic aortic aneurysm: Status: Acute Code(s): I71.20 - Thoracic aortic aneurysm, without rupture, unspecified Plan HPI: pt is a 46 yo male with long hx of anxiety, thoracic aneurysm (dx Nov 2021) who presents for severe anxiety in face of difficulty eating/drinking since this past monday. Pt is accompanied by his mother.? -Pt reports that this past monday he stopped being able to eat or drink since it caused pain (pointing to area just below his xiphoid process) and wretching. -hx of severe anxiety -but no hx of psychosis; no hx lyn Patient's parents review timeline events leading up to this admission: Prior to this summer, patient was overall doing fine, worked, drove his car and for the past 2 years had no obvious problems.? Parents agree that patient is drinking likely kept his anxiety down to some degree -September:? sister got diagnosed with melanoma very upsetting for patient -September:? patient had painless hematuria, cystoscopy did have a finding but it was benign -November:? About 4 years ago patient was diagnosed with thoracic aneurysm however he has not followed up.? This past summer he was going to the emergency room multiple times for various problems and eventually agreed to thoracic CT which showed that aneurysm had increased to 4.3 mg -December:? Patient had a severely ingrown toenail which required surgical extraction -January: Patient diagnosed with macular degeneration is right eye -over these months patient has been eating less and less, saying that he had little appetite, did not like the smell of meat and has lost 20 or more lb -March: on Monday patient had bloody stool; 1st bowel movement in a week On Monday patient suddenly had chest pain and subsequent retching after drinking any fluid or eating anything On 02:30 patient went to [facility] ED, blood labs were drawn but no imaging or or labs; no fluid; long wait prompted patient to return home but he then came to [facility] where he got IV fluid HOSPITAL COURSE: .03/19 meeting w/ parents; pt anxious, lamenting that nothing can be done for him, just let him go...asking his parents to just leave him somewhere...Barker Peeler asked where the side of the road? and he says yes. He denies any SI and laments i want to drink i want to eat...i just can't...i can't explain it.. but goes on to repeat that nothing can be done for him.? Patient refuses to believe that sql report writer has seeing other patients who could not eat or drink, saying that this is a unique situation.? Barker Peeler and parents together tried to encourage patient to take another Ativan under his tongue, which helped yesterday however he refused and kept saying it will not help... there is no point (after patient took Ativan under his tongue he was much more reasonable and able to engage with sql report writer and agreed that perhaps he could be helped; at that time he agreed to KUB, barium swallow and thoracic CT-each intervention was explained to patient.? Patient got the KUB but was worried about the CT and eventually refused CT).? Patient refused an IV fluids for the same reason saying it is not going to help. Patient has a thoracic aneurysm and has not been taking his metoprolol or amlodipine saying he is unable to swallow.? Barker Peeler discussed with patient who understands the need for these medications for his thoracic aneurysm however He refuses IV metoprolol saying it's not going to help...? Nothing is going to help....? You can not fix me.... -patient reported that he did make urine today, that it was brown and bubbly Barker Peeler, Patient and mother and father discussed healthcare proxy and patient was initially ambivalent.? Barker Peeler explained the details of healthcare proxy;? patient asked appropriate questions and expressed he understood and said he trusts his parents and that they are great. Patient signed healthcare proxy designating his mother and than his father as alternate. Discussed case with Hospitalist Dr. Hernandez, Dr. Zhang (GI) and technical artist Dr. Serrano -[facility] swallow on hold to first r/o obstruction (per amrik Zhang) with KUB -KUB ordered (per Dr. Zhang): unremarkable -CT chest/angio/aortic ordered with IV contrast to r/o worsening thoracic aneurysm (per dr. Serrano-though considers this unlikely); pt refused -fleet enema ordered: refused 03/20 Patient remains delusional 03/21 Remains delusoinal. He was able to drink some, small amount of fluid; refused IV; again discussed w/ patient consequences of refusal but he maintains that it won't help anyway. 12/20 seems more depressed today and does not respond with anxious lament when approached with questions. Remains delusional and refuses IV or any kind of medication or treatment. He seems to agree to continue allowing lab work for monitoring kidney functions. -potassium mildly low today -BUN/creatinine WNL 03/23 patient remains with paranoid delusional thinking regarding his physical health. He is trying to eat and drink and has been able to keep of food and fluids down. He continues to refuse medication of any kind, including medications prescribed by technical artist to prevent thoracic aneurysm from worsening. Both patient's parents/healthcare proxy want him to take medications including metoprolol and amlodipine. -lytes: WNL -BUN creatinine: WNL -patient is taking in enough fluid that his kidney function remains intact and at this time patient appears stable without IV fluids 03/24 Patient remains delusional and despondent. He says he is not good and continues to say I do not know what I am going to do I am just lost. Barker Peeler discussed reasons to try medications to which patient says it makes sense however he follows up with I just do not know......i'm in bad shape... the only thing I know is that there are no solutions.. I am certain about... Barker Peeler later met with patient again while his parents were visiting; patient's parents are urged him to try medications that sql report writer is offering however patient adamantly refuses. He tried to help sql report writer and family understand by saying I do not want to , I just know there is not a chance. It is the only thing left that I do know. Family discussion about healthcare proxy and involuntary commitment which patient understands. -Lytes: WNL -BUN/creatinine: WNL -Patient making urine -Patient drank about 2 cups of water by miday and drank and orange juice box; also ate a fruit cup and a tangerine -given labs and fluid intake, patient appears stable without IV fluids 03/25/2022 Patient remains anxious despondent to me a appears to be psychotically depressed somatically delusional and on able to take in information or explain his self cyst drug active and potentially life-threatening behavior if he markedly limits food and fluids based on no rational explanation. Refusing medical workup. Patient has upcoming court hearing for retention and treatment plan. Try to develop therapeutic [place] encourage labs every other day monitor food and fluid intake may intermittently need IV fluids If patient remains acute may benefit from ECT treatment which would have a more acute impact potentially Impression/plan: Patient has chronic anxiety, likely OCD/MACIEL, formally subdued with alcohol abuse, which at this point has reached to a psychotic level. Patient has hx of anxiety started in childhood.? However has functioned in the community with almost no history of psychiatric meds/therapy. No hx of any psychosis or lyn.? 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 Starting this summer patient has undergone a series of stressful events (sisters cancer dx; patients own illness) triggering excessive worry and he's been going to the ED for psychosomatic complaints (along with organic ones); he has become unable to function, along worse, does not drive, not attending to ADLs. His parents agree that given patient's baseline anxiety, all these events combined into overwhelming anxiety and and tipped scales for him decompensate leading to this admission.? Patient is not manic; though he has paranoid, somatic delusions, he has no known history of psychotic illness. Pt's OCD/MACIEL worries about his organic medical illness have become delusional making it difficult to ascertain what is going on and whether there is an organic component to his complaint that he cannot keep down food or water. Patient has no insight that he has delusional thoughts (he had 1 fleeting moment of insight after Ativan lowered anxiety). Although he can understand possible concerns/consequences of refusing treatment (such risks of worsening kidney function,which he does not want and so he eventually consents to getting blood draws to monitor) his paranoid delusional thinking makes him think all treatments are useless, won't help him and that his situation is hopeless. He is unaware the role his anxiety plays in confounding his thinking, insisting nothing will help, even when some of his complaints could be resolved with something as simple as an enema. -while starting to drink minimal amounts of fluid, patient has otherwise either unable or is refusing to drink fluids; he refuses IV for fluids, refuses thoracic CT, refuses barium swallow, refuses Fleet enema, refuses occult stool test; intermittently refuses labs; refuses all medication including IM and SL); thus far he has eventually allowed labwork to monitor for kidney function.? Patient's anxiety is chronic but has reached a psychotic level and patient does not have the capacity to make medical decisions for himself. Patient has a detailed history of seeking treatment for his ailments. However, now he is disorganized; he says he wants to eat and drink, does not want to ...wants to live, does not want to damage his kidneys... however he refuses nearly all?treatments/interventions. -sql report writer has discussed case w/ hospitalist and PA PLAN: 12 B (refused to sign CV offered again by this sql report writer) q15min checks Signed HCP on 03/19/22 -INVOKE HCP: Patient has paranoid delusions that severely impair his judgment and insight and he is not able to make medical decisions for himself; he is denying treatments that he would normally accept. Healthcare proxies both informed. They want patient to get IV fluids, take amlodipine and metoprolol, continue to get lab work and engage in treatment. Patient refuses fluids, amlodipine, metoprolol or other treatments. -PURSUE CIVIL COMMITMENT for involuntary commitment and substituted judgment for patient's safety -if patient continues not drink and to refuse treatments, specifically IV fluids, and continues to either refused to be on able to drink fluids, he will at some point risks severe and even permanent kidney damage. -currently Patient is still making urine and labs reveal kidney function remains WNL -Will continue to assess dehydration however?without fluids patient will at some point risks severe and even permanent kidney damage. -sql report writer has discussed case with both Psychiatric Director Dr. Pérez and several hospitalists (listed throughout) -will continue to monitor labs as pt allows -Monitor for clinical signs of dehydration: Dry mucus membranes; Skin turgor, drop in blood pressure/reflex tachycardia; sunken eyes 1. Dysphagia (food and water): Psychogenic vs organic 03/23 patient drank a juice cup and about 2 cups of water; 8 of fruit cup and tangerine so far; still making urine; BUN creatinine and lytes within normal limits 03/22 again kept some fluid down and eat small cup of fruit; made urine 03/21 pt was/did drink some small amount of fluid and did not vomit; made urine Negative KUB; Not bowel obstruction per dr. zhang Pt refuses Barium Swallow Pt refuses to allow CT to Assess thoracic aneurysm (given with sudden onset of substernal upper abdominal pain on eating/drinking for 3 days; possible concern for possible worsening dilation of aneurysm, though low likelihood) will monitor BMP will monitor for clinical signs of dehydration will monitor PO intake and if making urine 2. Severe Anxiety: OCD/MACIEL that is now at a psychotic level long hx of severe anxiety starting in childhood (eat his tie in school; over the years kept at bay with etoh abus) Pt refuses all medications Ativan 1mg TID (can let dissolve under tongue); though pt now refuses, one time he did helped pt become rational Ordered Zyprexa (Zydis) 5mg BID 3. Thoracid aneurysm: refuses Metoprolol refuses Amlodipine refuses CT Continue to encourage IV for fluids Labs: Ordered repeat BMP to monitor kidney 03/26: Continue current regimen and plans. Encouraged to eat and drink Reason for contiued inpatient stay Substantial Risk for: harm to self and med/psych decompensation Time Spent With Patient Time: Total time managing care of this patient today ____ minutes.
[2022-03-26 12:00] VITALS: BP 122/86; PULSE 87; RESP 16; TEMP 36.8; O2SAT 96
[2022-03-26 16:00] VITALS: BP 129/78; PULSE 99; RESP 16; TEMP 36.4
[2022-03-26 19:55] VITALS: BP 111/80; PULSE 104; RESP 18; TEMP 36.8; O2SAT 97
[2022-03-27 04:00] VITALS: BP 118/74; PULSE 88; TEMP 36.8; O2SAT 97
[2022-03-27 08:00] VITALS: BP 124/96; PULSE 110; TEMP 36.3; O2SAT 97
--- NOTE | 2022-03-27 10:20 | HO.PSYCHPN ---
Subjective Subjective Date of Service: 03/27/22 Reason For Visit: psychosis, delusions of persecution, SI Subjective Notes: Section 7 Healthcare Proxy: Yes Interim History: Patient was seen and discussed in rounds today. Records and plans were reviewed. He continues to be mostly isolative and in bed. Eating very little and drinking little. Continues to be depressed and negative about everything. He is not taking medications. He does have a healthcare proxy but it is not clear whether it has been put into a fact. His parents are his proxy. I tried to see why he is not taking medications, eating but he did not Wanna say anything Medication Compliance: No Attending Groups: No Mental Status Exam Mental Status Exam Patient Appearance: Disheveled and Perspiring Patient Orientation: Person, Place and Situation Level of Consciousness: Awake Patient Behavior: Guarded, Anxious and Resistive to Care Behavior Comments: Irritability noted Mood Description: Constricted, Anxious and Apprehensive Affect Description: Suspicious, Constricted and Apprehensive Speech Pattern: Clear Thought Process: Rumination Thought Content: positive for Perseveration, positive for Preoccupation, positive for Hypochondriasis and negative for Suicidal Ideation Depressive Symptoms: Increased Anxiety, Loss of Int. in Activity, Hopelessness, Increased Fatigue and Loss of Energy Judgement: Poor Judgement and Insight: Patient with marked lack of insight in judgment difficulty with self-care taking it food in fluids minimally cannot explain his behavior physically preoccupied preoccupied with his body but unable to explain what he is feeling resistant irritable to taking in any alternative information or explanation regarding diagnosis or treatment states he is not looking to but unable to explain why he will not take in more than minimal food or fluids Diagnostics Vital Signs (24Hr): Vital Signs - 24 hr 03/26/22 12:00 03/26/22 16:00 03/26/22 19:55 Temperature 98.2 F 97.5 F 98.3 F Pulse Rate 87 99 104 H Respiratory Rate 16 16 18 Blood Pressure 122/86 129/78 111/80 Pulse Oximetry 96 97 Oxygen Delivery Method Room Air Room Air 03/27/22 04:00 03/27/22 08:00 Temperature 98.2 F 97.3 F Pulse Rate 88 110 H Respiratory Rate Blood Pressure 118/74 124/96 H Pulse Oximetry 97 97 Oxygen Delivery Method Room Air Room Air BMI result Body Mass Index 37.8 Labs Results: 03/17/22 14:30 03/25/22 08:27 Labs: Laboratory Results - last 48 hr 03/25/22 03/26/22 08:27 08:30 Sodium 143 Potassium 3.7 Chloride 107 Carbon Dioxide 22 Anion Gap 18 BUN 20 H Creatinine 0.78 Estim Creat Clear Calc 112.0 Estimated GFR > 60 POC Glucose 72 Random Glucose 74 Calcium 9.2 Imaging Radiology Impressions: ITS Impressions KUB X-Ray 03/18/22 16:35 IMPRESSION: Unremarkable examination. Medications Medications Current Medications Acetaminophen (Acetaminophen 325 Mg Tablet) 650 mg PO Q6H PRN PRN Reason: Headache/Pain Mild Scale (1-3) Al Hydroxide/Mg Hydroxide (Magnesium Hydrox/Alum Hydrox 30 Ml Oral.Susp) 30 ml PO Q6H PRN PRN Reason: Heartburn/Nausea Amlodipine Besylate (Amlodipine Besylate 5 Mg Tablet) 5 mg PO DAILY [facility]; Protocol Last Admin: 03/27/22 08:38 Dose: Not Given Hydroxyzine HCl (Hydroxyzine Hcl 25 Mg Tablet) 25 mg PO Q6H PRN PRN Reason: Anxiety Lorazepam (Lorazepam 1 Mg Tablet) 1 mg PO TID [facility] Last Admin: 03/27/22 08:38 Dose: Not Given Magnesium Hydroxide (Milk Of Magnesia 30 Ml Oral.Susp) 30 ml PO DAILY PRN PRN Reason: Constipation Metoprolol Succinate (Metoprolol Succinate Er 25 Mg Tab.Er.24h) 25 mg PO DAILY [facility]; Protocol Last Admin: 03/27/22 08:38 Dose: Not Given Olanzapine (Olanzapine Odt 10 Mg Tab.Rapdis) 5 mg TRANSLINGU BID [facility] Last Admin: 03/27/22 08:39 Dose: Not Given Pharmacy Consult (Consult Rx Perform Med Rec) 1 each MISCELLANE ONCE PRN PRN Reason: Consult order Polyethylene Glycol (Polyethylene Glycol 3350 17 Gm Powd.Pack) 17 gm PO DAILY PRN PRN Reason: constipation Sodium Biphosphate/Sodium Phosphate (Sodium Phosphate,[place]-Dibasic 133 Ml Enema) 133 ml NV ONCE PRN PRN Reason: Constipation Trazodone HCl (Trazodone Hcl 50 Mg Tablet) 50 mg PO BEDTIME PRN PRN Reason: Insomnia Allergies Allergies Allergy/AdvReac Type Severity Reaction Status Date / Time No Known Allergies Allergy Verified 03/17/22 16:59 Assessment & Plan Assessment & Plan (1) Brief psychotic disorder: Status: Acute Code(s): F23 - Brief psychotic disorder (2) MACIEL (generalized anxiety disorder): Status: Acute Code(s): F41.1 - Generalized anxiety disorder Assessment and Plan: Vs OCD (3) Somatic delusion disorder: Status: Acute Code(s): F22 - Delusional disorders (4) Thoracic aortic aneurysm: Status: Acute Code(s): I71.20 - Thoracic aortic aneurysm, without rupture, unspecified Plan HPI: pt is a 46 yo male with long hx of anxiety, thoracic aneurysm (dx Nov 2021) who presents for severe anxiety in face of difficulty eating/drinking since this past monday. Pt is accompanied by his mother.? -Pt reports that this past monday he stopped being able to eat or drink since it caused pain (pointing to area just below his xiphoid process) and wretching. -hx of severe anxiety -but no hx of psychosis; no hx lyn Patient's parents review timeline events leading up to this admission: Prior to this summer, patient was overall doing fine, worked, drove his car and for the past 2 years had no obvious problems.? Parents agree that patient is drinking likely kept his anxiety down to some degree -September:? sister got diagnosed with melanoma very upsetting for patient -September:? patient had painless hematuria, cystoscopy did have a finding but it was benign -November:? About 4 years ago patient was diagnosed with thoracic aneurysm however he has not followed up.? This past summer he was going to the emergency room multiple times for various problems and eventually agreed to thoracic CT which showed that aneurysm had increased to 4.3 mg -December:? Patient had a severely ingrown toenail which required surgical extraction -January: Patient diagnosed with macular degeneration is right eye -over these months patient has been eating less and less, saying that he had little appetite, did not like the smell of meat and has lost 20 or more lb -March: on Monday patient had bloody stool; 1st bowel movement in a week On Monday patient suddenly had chest pain and subsequent retching after drinking any fluid or eating anything On 02:30 patient went to [facility] ED, blood labs were drawn but no imaging or or labs; no fluid; long wait prompted patient to return home but he then came to [place] ED where he got IV fluid HOSPITAL COURSE: .12/17 meeting w/ parents; pt anxious, lamenting that nothing can be done for him, just let him go...asking his parents to just leave him somewhere...Customer Contact Specialist asked where the side of the road? and he says yes. He denies any SI and laments i want to drink i want to eat...i just can't...i can't explain it.. but goes on to repeat that nothing can be done for him.? Patient refuses to believe that account underwriter has seeing other patients who could not eat or drink, saying that this is a unique situation.? Customer Contact Specialist and parents together tried to encourage patient to take another Ativan under his tongue, which helped yesterday however he refused and kept saying it will not help... there is no point (after patient took Ativan under his tongue he was much more reasonable and able to engage with account underwriter and agreed that perhaps he could be helped; at that time he agreed to KUB, barium swallow and thoracic CT-each intervention was explained to patient.? Patient got the KUB but was worried about the CT and eventually refused CT).? Patient refused an IV fluids for the same reason saying it is not going to help. Patient has a thoracic aneurysm and has not been taking his metoprolol or amlodipine saying he is unable to swallow.? Customer Contact Specialist discussed with patient who understands the need for these medications for his thoracic aneurysm however He refuses IV metoprolol saying it's not going to help...? Nothing is going to help....? You can not fix me.... -patient reported that he did make urine today, that it was brown and bubbly Customer Contact Specialist, Patient and mother and father discussed healthcare proxy and patient was initially ambivalent.? Customer Contact Specialist explained the details of healthcare proxy;? patient asked appropriate questions and expressed he understood and said he trusts his parents and that they are great. Patient signed healthcare proxy designating his mother and than his father as alternate. Discussed case with Hospitalist Dr. Hernandez, Dr. Zhang (GI) and morgue librarian Dr. Serrano -Odalys swallow on hold to first r/o obstruction (per amrik Zhang) with KUB -KUB ordered (per Dr. Zhang): unremarkable -CT chest/angio/aortic ordered with IV contrast to r/o worsening thoracic aneurysm (per dr. Serrano-though considers this unlikely); pt refused -fleet enema ordered: refused 03/20 Patient remains delusional 03/21 Remains delusoinal. He was able to drink some, small amount of fluid; refused IV; again discussed w/ patient consequences of refusal but he maintains that it won't help anyway. 03/22 seems more depressed today and does not respond with anxious lament when approached with questions. Remains delusional and refuses IV or any kind of medication or treatment. He seems to agree to continue allowing lab work for monitoring kidney functions. -potassium mildly low today -BUN/creatinine WNL 03/23 patient remains with paranoid delusional thinking regarding his physical health. He is trying to eat and drink and has been able to keep of food and fluids down. He continues to refuse medication of any kind, including medications prescribed by morgue librarian to prevent thoracic aneurysm from worsening. Both patient's parents/healthcare proxy want him to take medications including metoprolol and amlodipine. -lytes: WNL -BUN creatinine: WNL -patient is taking in enough fluid that his kidney function remains intact and at this time patient appears stable without IV fluids 03/24 Patient remains delusional and despondent. He says he is not good and continues to say I do not know what I am going to do I am just lost. Customer Contact Specialist discussed reasons to try medications to which patient says it makes sense however he follows up with I just do not know......i'm in bad shape... the only thing I know is that there are no solutions.. I am certain about... Customer Contact Specialist later met with patient again while his parents were visiting; patient's parents are urged him to try medications that account underwriter is offering however patient adamantly refuses. He tried to help account underwriter and family understand by saying I do not want to , I just know there is not a chance. It is the only thing left that I do know. Family discussion about healthcare proxy and involuntary commitment which patient understands. -Lytes: WNL -BUN/creatinine: WNL -Patient making urine -Patient drank about 2 cups of water by miday and drank and orange juice box; also ate a fruit cup and a tangerine -given labs and fluid intake, patient appears stable without IV fluids 03/25/2022 Patient remains anxious despondent to me a appears to be psychotically depressed somatically delusional and on able to take in information or explain his self cyst drug active and potentially life-threatening behavior if he markedly limits food and fluids based on no rational explanation. Refusing medical workup. Patient has upcoming court hearing for retention and treatment plan. Try to develop therapeutic [place] encourage labs every other day monitor food and fluid intake may intermittently need IV fluids If patient remains acute may benefit from ECT treatment which would have a more acute impact potentially Impression/plan: Patient has chronic anxiety, likely OCD/MACIEL, formally subdued with alcohol abuse, which at this point has reached to a psychotic level. Patient has hx of anxiety started in childhood.? However has functioned in the community with almost no history of psychiatric meds/therapy. No hx of any psychosis or lyn.? 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 Starting this summer patient has undergone a series of stressful events (sisters cancer dx; patients own illness) triggering excessive worry and he's been going to the ED for psychosomatic complaints (along with organic ones); he has become unable to function, along worse, does not drive, not attending to ADLs. His parents agree that given patient's baseline anxiety, all these events combined into overwhelming anxiety and and tipped scales for him decompensate leading to this admission.? Patient is not manic; though he has paranoid, somatic delusions, he has no known history of psychotic illness. Pt's OCD/MACIEL worries about his organic medical illness have become delusional making it difficult to ascertain what is going on and whether there is an organic component to his complaint that he cannot keep down food or water. Patient has no insight that he has delusional thoughts (he had 1 fleeting moment of insight after Ativan lowered anxiety). Although he can understand possible concerns/consequences of refusing treatment (such risks of worsening kidney function,which he does not want and so he eventually consents to getting blood draws to monitor) his paranoid delusional thinking makes him think all treatments are useless, won't help him and that his situation is hopeless. He is unaware the role his anxiety plays in confounding his thinking, insisting nothing will help, even when some of his complaints could be resolved with something as simple as an enema. -while starting to drink minimal amounts of fluid, patient has otherwise either unable or is refusing to drink fluids; he refuses IV for fluids, refuses thoracic CT, refuses barium swallow, refuses Fleet enema, refuses occult stool test; intermittently refuses labs; refuses all medication including IM and SL); thus far he has eventually allowed labwork to monitor for kidney function.? Patient's anxiety is chronic but has reached a psychotic level and patient does not have the capacity to make medical decisions for himself. Patient has a detailed history of seeking treatment for his ailments. However, now he is disorganized; he says he wants to eat and drink, does not want to ...wants to live, does not want to damage his kidneys... however he refuses nearly all?treatments/interventions. -account underwriter has discussed case w/ hospitalist and PA PLAN: 12 B (refused to sign CV offered again by this account underwriter) q15min checks Signed HCP on 03/19/22 -INVOKE HCP: Patient has paranoid delusions that severely impair his judgment and insight and he is not able to make medical decisions for himself; he is denying treatments that he would normally accept. Healthcare proxies both informed. They want patient to get IV fluids, take amlodipine and metoprolol, continue to get lab work and engage in treatment. Patient refuses fluids, amlodipine, metoprolol or other treatments. -PURSUE CIVIL COMMITMENT for involuntary commitment and substituted judgment for patient's safety -if patient continues not drink and to refuse treatments, specifically IV fluids, and continues to either refused to be on able to drink fluids, he will at some point risks severe and even permanent kidney damage. -currently Patient is still making urine and labs reveal kidney function remains WNL -Will continue to assess dehydration however?without fluids patient will at some point risks severe and even permanent kidney damage. -account underwriter has discussed case with both Psychiatric Director Dr. Pérez and several hospitalists (listed throughout) -will continue to monitor labs as pt allows -Monitor for clinical signs of dehydration: Dry mucus membranes; Skin turgor, drop in blood pressure/reflex tachycardia; sunken eyes 1. Dysphagia (food and water): Psychogenic vs organic 03/23 patient drank a juice cup and about 2 cups of water; 8 of fruit cup and tangerine so far; still making urine; BUN creatinine and lytes within normal limits 03/22 again kept some fluid down and eat small cup of fruit; made urine 03/21 pt was/did drink some small amount of fluid and did not vomit; made urine Negative KUB; Not bowel obstruction per dr. zhang Pt refuses Barium Swallow Pt refuses to allow CT to Assess thoracic aneurysm (given with sudden onset of substernal upper abdominal pain on eating/drinking for 3 days; possible concern for possible worsening dilation of aneurysm, though low likelihood) will monitor BMP will monitor for clinical signs of dehydration will monitor PO intake and if making urine 2. Severe Anxiety: OCD/MACIEL that is now at a psychotic level long hx of severe anxiety starting in childhood (eat his tie in school; over the years kept at bay with etoh abus) Pt refuses all medications Ativan 1mg TID (can let dissolve under tongue); though pt now refuses, one time he did helped pt become rational Ordered Zyprexa (Zydis) 5mg BID 3. Thoracid aneurysm: refuses Metoprolol refuses Amlodipine refuses CT Continue to encourage IV for fluids Labs: Ordered repeat BMP to monitor kidney 03/26: Continue current regimen and plans. Encouraged to eat and drink 03/27: Continue current plans and regimen. Reason for contiued inpatient stay Substantial Risk for: harm to self and med/psych decompensation Time Spent With Patient Time: Total time managing care of this patient today ____ minutes.
[2022-03-27 15:38] LABS: Anion Gap 18 (12-20); Blood Urea Nitrogen 18 mg/dL (9-16); Calcium 9.3 mg/dL (8.4-10.2); Carbon Dioxide 20 mmol/L (22-29); Chloride 107 mmol/L (96-108); Creatinine Clr Calc Pharmacy 101.6; Estimated Glomerular Filt Rate > 60; Glucose Random 94 mg/dL (60-115); Potassium 3.3 mmol/L (3.3-5.1); Sodium 142 mmol/L (135-145)
[2022-03-27 16:00] VITALS: RESP 16
[2022-03-27 20:00] VITALS: RESP 16
--- NOTE | 2022-03-27 20:10 | PC.NURSE ---
pt refused medications and vitals signs during his shift. when gag writer came in the take vitals, pt said do you have to? pt did not eat dinner.
[2022-03-28 08:00] VITALS: BP 119/81; PULSE 128; RESP 16; TEMP 37.2; O2SAT 97
--- NOTE | 2022-03-28 09:55 | HO.PSYCHPN ---
Subjective Subjective Date of Service: 03/28/22 Reason For Visit: psychosis, delusions of persecution, SI Subjective Notes: Section 8 Healthcare Proxy: Yes Interim History: Patient was seen and discussed in rounds today. Records and plans were reviewed. He remains very isolative and practically in bed for the most part. Minimal food and drink intake. I again tried talking to him about taking medication but he continues to be negative, stating that nothing helps. No changes were made today Medication Compliance: No Attending Groups: No Mental Status Exam Mental Status Exam Narrative: In today's visit he is alert, pleasant and interactive, responding to questions. Soft-spoken speech. No eye contact. Affect is subdued flow more flat and constricted. No signs of psychosis. Denies any auditory or visual hallucinations. Cognitively he has slow thought processes. No active suicidal ideations. Judgment is marginal to impaired Diagnostics Vital Signs (24Hr): Vital Signs - 24 hr 03/27/22 16:00 03/27/22 20:00 03/28/22 08:00 Temperature 98.9 F Pulse Rate 128 H Respiratory Rate 16 16 16 Blood Pressure 119/81 Pulse Oximetry 97 Oxygen Delivery Method Room Air BMI result Body Mass Index 37.8 Labs Results: 03/17/22 14:30 03/27/22 15:06 Labs: Laboratory Results - last 48 hr 03/27/22 15:06 Sodium 142 Potassium 3.3 Chloride 107 Carbon Dioxide 20 L Anion Gap 18 BUN 18 H Creatinine 0.86 Estim Creat Clear Calc 101.6 Estimated GFR > 60 Random Glucose 94 Calcium 9.3 Imaging Radiology Impressions: ITS Impressions KUB X-Ray 03/18/22 16:35 IMPRESSION: Unremarkable examination. Medications Medications Current Medications Acetaminophen (Acetaminophen 325 Mg Tablet) 650 mg PO Q6H PRN PRN Reason: Headache/Pain Mild Scale (1-3) Al Hydroxide/Mg Hydroxide (Magnesium Hydrox/Alum Hydrox 30 Ml Oral.Susp) 30 ml PO Q6H PRN PRN Reason: Heartburn/Nausea Amlodipine Besylate (Amlodipine Besylate 5 Mg Tablet) 5 mg PO DAILY [facility]; Protocol Last Admin: 03/28/22 08:50 Dose: Not Given Hydroxyzine HCl (Hydroxyzine Hcl 25 Mg Tablet) 25 mg PO Q6H PRN PRN Reason: Anxiety Lorazepam (Lorazepam 1 Mg Tablet) 1 mg PO TID [facility] Last Admin: 03/28/22 08:51 Dose: Not Given Magnesium Hydroxide (Milk Of Magnesia 30 Ml Oral.Susp) 30 ml PO DAILY PRN PRN Reason: Constipation Metoprolol Succinate (Metoprolol Succinate Er 25 Mg Tab.Er.24h) 25 mg PO DAILY [facility]; Protocol Last Admin: 03/28/22 08:51 Dose: Not Given Olanzapine (Olanzapine Odt 10 Mg Tab.Rapdis) 5 mg TRANSLINGU BID [place] Last Admin: 03/28/22 08:51 Dose: Not Given Pharmacy Consult (Consult Rx Perform Med Rec) 1 each MISCELLANE ONCE PRN PRN Reason: Consult order Polyethylene Glycol (Polyethylene Glycol 3350 17 Gm Powd.Pack) 17 gm PO DAILY PRN PRN Reason: constipation Sodium Biphosphate/Sodium Phosphate (Sodium Phosphate,Pershing-Dibasic 133 Ml Enema) 133 ml MT ONCE PRN PRN Reason: Constipation Trazodone HCl (Trazodone Hcl 50 Mg Tablet) 50 mg PO BEDTIME PRN PRN Reason: Insomnia Allergies Allergies Allergy/AdvReac Type Severity Reaction Status Date / Time No Known Allergies Allergy Verified 03/17/22 16:59 Assessment & Plan Assessment & Plan (1) Brief psychotic disorder: Status: Acute Code(s): F23 - Brief psychotic disorder (2) MACIEL (generalized anxiety disorder): Status: Acute Code(s): F41.1 - Generalized anxiety disorder Assessment and Plan: Vs OCD (3) Somatic delusion disorder: Status: Acute Code(s): F22 - Delusional disorders (4) Thoracic aortic aneurysm: Status: Acute Code(s): I71.20 - Thoracic aortic aneurysm, without rupture, unspecified Plan HPI: pt is a 46 yo male with long hx of anxiety, thoracic aneurysm (dx Nov 2021) who presents for severe anxiety in face of difficulty eating/drinking since this past monday. Pt is accompanied by his mother.? -Pt reports that this past monday he stopped being able to eat or drink since it caused pain (pointing to area just below his xiphoid process) and wretching. -hx of severe anxiety -but no hx of psychosis; no hx lyn Patient's parents review timeline events leading up to this admission: Prior to this summer, patient was overall doing fine, worked, drove his car and for the past 2 years had no obvious problems.? Parents agree that patient is drinking likely kept his anxiety down to some degree -September:? sister got diagnosed with melanoma very upsetting for patient -September:? patient had painless hematuria, cystoscopy did have a finding but it was benign -November:? About 4 years ago patient was diagnosed with thoracic aneurysm however he has not followed up.? This past summer he was going to the emergency room multiple times for various problems and eventually agreed to thoracic CT which showed that aneurysm had increased to 4.3 mg -December:? Patient had a severely ingrown toenail which required surgical extraction -January: Patient diagnosed with macular degeneration is right eye -over these months patient has been eating less and less, saying that he had little appetite, did not like the smell of meat and has lost 20 or more lb -March: on Monday patient had bloody stool; 1st bowel movement in a week On Monday patient suddenly had chest pain and subsequent retching after drinking any fluid or eating anything On 02:30 patient went to [facility] ED, blood labs were drawn but no imaging or or labs; no fluid; long wait prompted patient to return home but he then came to [place] ED where he got IV fluid HOSPITAL COURSE: .03/19 meeting w/ parents; pt anxious, lamenting that nothing can be done for him, just let him go...asking his parents to just leave him somewhere...Sanitation Worker asked where the side of the road? and he says yes. He denies any SI and laments i want to drink i want to eat...i just can't...i can't explain it.. but goes on to repeat that nothing can be done for him.? Patient refuses to believe that policy writer typist has seeing other patients who could not eat or drink, saying that this is a unique situation.? Sanitation Worker and parents together tried to encourage patient to take another Ativan under his tongue, which helped yesterday however he refused and kept saying it will not help... there is no point (after patient took Ativan under his tongue he was much more reasonable and able to engage with policy writer typist and agreed that perhaps he could be helped; at that time he agreed to KUB, barium swallow and thoracic CT-each intervention was explained to patient.? Patient got the KUB but was worried about the CT and eventually refused CT).? Patient refused an IV fluids for the same reason saying it is not going to help. Patient has a thoracic aneurysm and has not been taking his metoprolol or amlodipine saying he is unable to swallow.? Sanitation Worker discussed with patient who understands the need for these medications for his thoracic aneurysm however He refuses IV metoprolol saying it's not going to help...? Nothing is going to help....? You can not fix me.... -patient reported that he did make urine today, that it was brown and bubbly Sanitation Worker, Patient and mother and father discussed healthcare proxy and patient was initially ambivalent.? Sanitation Worker explained the details of healthcare proxy;? patient asked appropriate questions and expressed he understood and said he trusts his parents and that they are great. Patient signed healthcare proxy designating his mother and than his father as alternate. Discussed case with Hospitalist Dr. Hernandez, Dr. Zhang (GI) and indian trader Dr. Serrano -Barrium swallow on hold to first r/o obstruction (per amrik Zhang) with KUB -KUB ordered (per Dr. Zhang): unremarkable -CT chest/angio/aortic ordered with IV contrast to r/o worsening thoracic aneurysm (per dr. Serrano-though considers this unlikely); pt refused -fleet enema ordered: refused 03/20 Patient remains delusional 03/21 Remains delusoinal. He was able to drink some, small amount of fluid; refused IV; again discussed w/ patient consequences of refusal but he maintains that it won't help anyway. 03/22 seems more depressed today and does not respond with anxious lament when approached with questions. Remains delusional and refuses IV or any kind of medication or treatment. He seems to agree to continue allowing lab work for monitoring kidney functions. -potassium mildly low today -BUN/creatinine WNL 03/23 patient remains with paranoid delusional thinking regarding his physical health. He is trying to eat and drink and has been able to keep of food and fluids down. He continues to refuse medication of any kind, including medications prescribed by indian trader to prevent thoracic aneurysm from worsening. Both patient's parents/healthcare proxy want him to take medications including metoprolol and amlodipine. -lytes: WNL -BUN creatinine: WNL -patient is taking in enough fluid that his kidney function remains intact and at this time patient appears stable without IV fluids 03/24 Patient remains delusional and despondent. He says he is not good and continues to say I do not know what I am going to do I am just lost. Sanitation Worker discussed reasons to try medications to which patient says it makes sense however he follows up with I just do not know......i'm in bad shape... the only thing I know is that there are no solutions.. I am certain about... Sanitation Worker later met with patient again while his parents were visiting; patient's parents are urged him to try medications that policy writer typist is offering however patient adamantly refuses. He tried to help policy writer typist and family understand by saying I do not want to , I just know there is not a chance. It is the only thing left that I do know. Family discussion about healthcare proxy and involuntary commitment which patient understands. -Lytes: WNL -BUN/creatinine: WNL -Patient making urine -Patient drank about 2 cups of water by miday and drank and orange juice box; also ate a fruit cup and a tangerine -given labs and fluid intake, patient appears stable without IV fluids 03/25/2022 Patient remains anxious despondent to me a appears to be psychotically depressed somatically delusional and on able to take in information or explain his self cyst drug active and potentially life-threatening behavior if he markedly limits food and fluids based on no rational explanation. Refusing medical workup. Patient has upcoming court hearing for retention and treatment plan. Try to develop therapeutic Shelby encourage labs every other day monitor food and fluid intake may intermittently need IV fluids If patient remains acute may benefit from ECT treatment which would have a more acute impact potentially Impression/plan: Patient has chronic anxiety, likely OCD/MACIEL, formally subdued with alcohol abuse, which at this point has reached to a psychotic level. Patient has hx of anxiety started in childhood.? However has functioned in the community with almost no history of psychiatric meds/therapy. No hx of any psychosis or lyn.? 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 Starting this summer patient has undergone a series of stressful events (sisters cancer dx; patients own illness) triggering excessive worry and he's been going to the ED for psychosomatic complaints (along with organic ones); he has become unable to function, along worse, does not drive, not attending to ADLs. His parents agree that given patient's baseline anxiety, all these events combined into overwhelming anxiety and and tipped scales for him decompensate leading to this admission.? Patient is not manic; though he has paranoid, somatic delusions, he has no known history of psychotic illness. Pt's OCD/MACIEL worries about his organic medical illness have become delusional making it difficult to ascertain what is going on and whether there is an organic component to his complaint that he cannot keep down food or water. Patient has no insight that he has delusional thoughts (he had 1 fleeting moment of insight after Ativan lowered anxiety). Although he can understand possible concerns/consequences of refusing treatment (such risks of worsening kidney function,which he does not want and so he eventually consents to getting blood draws to monitor) his paranoid delusional thinking makes him think all treatments are useless, won't help him and that his situation is hopeless. He is unaware the role his anxiety plays in confounding his thinking, insisting nothing will help, even when some of his complaints could be resolved with something as simple as an enema. -while starting to drink minimal amounts of fluid, patient has otherwise either unable or is refusing to drink fluids; he refuses IV for fluids, refuses thoracic CT, refuses barium swallow, refuses Fleet enema, refuses occult stool test; intermittently refuses labs; refuses all medication including IM and SL); thus far he has eventually allowed labwork to monitor for kidney function.? Patient's anxiety is chronic but has reached a psychotic level and patient does not have the capacity to make medical decisions for himself. Patient has a detailed history of seeking treatment for his ailments. However, now he is disorganized; he says he wants to eat and drink, does not want to ...wants to live, does not want to damage his kidneys... however he refuses nearly all?treatments/interventions. -policy writer typist has discussed case w/ hospitalist and PA PLAN: 12 B (refused to sign CV offered again by this policy writer typist) q15min checks Signed HCP on 03/19/22 -INVOKE HCP: Patient has paranoid delusions that severely impair his judgment and insight and he is not able to make medical decisions for himself; he is denying treatments that he would normally accept. Healthcare proxies both informed. They want patient to get IV fluids, take amlodipine and metoprolol, continue to get lab work and engage in treatment. Patient refuses fluids, amlodipine, metoprolol or other treatments. -PURSUE CIVIL COMMITMENT for involuntary commitment and substituted judgment for patient's safety -if patient continues not drink and to refuse treatments, specifically IV fluids, and continues to either refused to be on able to drink fluids, he will at some point risks severe and even permanent kidney damage. -currently Patient is still making urine and labs reveal kidney function remains WNL -Will continue to assess dehydration however?without fluids patient will at some point risks severe and even permanent kidney damage. -policy writer typist has discussed case with both Psychiatric Director Dr. Pérez and several hospitalists (listed throughout) -will continue to monitor labs as pt allows -Monitor for clinical signs of dehydration: Dry mucus membranes; Skin turgor, drop in blood pressure/reflex tachycardia; sunken eyes 1. Dysphagia (food and water): Psychogenic vs organic 03/23 patient drank a juice cup and about 2 cups of water; 8 of fruit cup and tangerine so far; still making urine; BUN creatinine and lytes within normal limits 03/22 again kept some fluid down and eat small cup of fruit; made urine 03/21 pt was/did drink some small amount of fluid and did not vomit; made urine Negative KUB; Not bowel obstruction per dr. zhang Pt refuses Barium Swallow Pt refuses to allow CT to Assess thoracic aneurysm (given with sudden onset of substernal upper abdominal pain on eating/drinking for 3 days; possible concern for possible worsening dilation of aneurysm, though low likelihood) will monitor BMP will monitor for clinical signs of dehydration will monitor PO intake and if making urine 2. Severe Anxiety: OCD/MACIEL that is now at a psychotic level long hx of severe anxiety starting in childhood (eat his tie in school; over the years kept at bay with etoh abus) Pt refuses all medications Ativan 1mg TID (can let dissolve under tongue); though pt now refuses, one time he did helped pt become rational Ordered Zyprexa (Zydis) 5mg BID 3. Thoracid aneurysm: refuses Metoprolol refuses Amlodipine refuses CT Continue to encourage IV for fluids Labs: Ordered repeat BMP to monitor kidney 03/26: Continue current regimen and plans. Encouraged to eat and drink 03/27: Continue current plans and regimen. 03/28: Continue current regimen and plans Reason for contiued inpatient stay Substantial Risk for: inability to function Time Spent With Patient Time: Total time managing care of this patient today ____ minutes.
[2022-03-28 12:00] VITALS: RESP 16
[2022-03-28 16:00] VITALS: BP 143/73; PULSE 107; RESP 18; TEMP 37; O2SAT 98
[2022-03-29 08:00] VITALS: BP 120/84; PULSE 108; RESP 16; TEMP 36.9; O2SAT 97
--- NOTE | 2022-03-29 08:10 | PC.NURSE ---
pt refused morning medications I'm not taking anything, it wont help
[2022-03-29 09:33] LABS: Anion Gap 20 (12-20); Blood Urea Nitrogen 20 mg/dL (9-16); Calcium 9.4 mg/dL (8.4-10.2); Carbon Dioxide 20 mmol/L (22-29); Chloride 107 mmol/L (96-108); Estimated Glomerular Filt Rate > 60; Glucose Random 78 mg/dL (60-115); Potassium 3.7 mmol/L (3.3-5.1); Sodium 143 mmol/L (135-145)
[2022-03-29 12:12] VITALS: BP 122/84; PULSE 125; RESP 16; TEMP 36.7; O2SAT 98
--- NOTE | 2022-03-29 14:16 | P.PNPSI_ITS ---
Subjective Subjective Date of Service: 03/29/22 Reason For Visit: psychosis, delusions of persecution, SI Interim History: met with patient, SW and patients mother. Pt says he thinks he will no longer ge able to drink any more. He cannot say way and cannot explain it, but just he won't be able to. At behest of those present, pt was willing to try to drink some and was able to. Aircraft [employer] Mechanic presented idea that while patient believes he cannot eat/drink, he is actually able to...pt nodded his head yes, but was then said i don't know... Discussed court case today and pt said he understood. Court hearing today and patient involuntarily committed. Mental Status Exam Mental Status Exam Narrative: Pt is alert and oriented; behavior is anxious; dressed in casual attire with scruffy facial hair, disheveled, marginal hygiene; mood is described as terrible and affect congruent, anxious; minimal eye contact appropriate; Speech is normal rate, volume and prosody and not pressured; psychomotor retardation present; thought process is goal directed; Thought content is on ph ysical ailments, hopelessness and psychosomatic delusional worries; denies any SI/HI. There is no evidence of perceptual disturbance. Patients insight and judgment are impaired. Diagnostics Vital Signs (24Hr): Vital Signs - 24 hr 03/28/22 16:00 03/29/22 08:00 03/29/22 12:12 Temperature 98.6 F 98.4 F 98.1 F Pulse Rate 107 H 108 H 125 H Respiratory Rate 18 16 16 Blood Pressure 143/73 H 120/84 122/84 Pulse Oximetry 98 97 98 Oxygen Delivery Method Room Air Room Air Room Air BMI result Body Mass Index 37.8 Labs Results: 03/17/22 14:30 03/29/22 08:12 Labs: Laboratory Results - last 48 hr 03/27/22 03/29/22 15:06 08:12 Sodium 142 143 Potassium 3.3 3.7 Chloride 107 107 Carbon Dioxide 20 L 20 L Anion Gap 18 20 BUN 18 H 20 H Creatinine 0.86 0.91 Estim Creat Clear Calc 101.6 96.0 Estimated GFR > 60 > 60 Random Glucose 94 78 Calcium 9.3 9.4 Imaging Radiology Impressions: ITS Impressions KUB X-Ray 03/18/22 16:35 IMPRESSION: Unremarkable examination. Medications Medications Current Medications Acetaminophen (Acetaminophen 325 Mg Tablet) 650 mg PO Q6H PRN PRN Reason: Headache/Pain Mild Scale (1-3) Al Hydroxide/Mg Hydroxide (Magnesium Hydrox/Alum Hydrox 30 Ml Oral.Susp) 30 ml PO Q6H PRN PRN Reason: Heartburn/Nausea Amlodipine Besylate (Amlodipine Besylate 5 Mg Tablet) 5 mg PO DAILY [facility]; Protocol Last Admin: 03/29/22 08:10 Dose: Not Given Hydroxyzine HCl (Hydroxyzine Hcl 25 Mg Tablet) 25 mg PO Q6H PRN PRN Reason: Anxiety Magnesium Hydroxide (Milk Of Magnesia 30 Ml Oral.Susp) 30 ml PO DAILY PRN PRN Reason: Constipation Metoprolol Succinate (Metoprolol Succinate Er 25 Mg Tab.Er.24h) 25 mg PO DAILY [facility]; Protocol Last Admin: 03/29/22 08:10 Dose: Not Given Olanzapine (Olanzapine Odt 10 Mg Tab.Rapdis) 5 mg TRANSLINGU BID [place] Last Admin: 03/29/22 08:10 Dose: Not Given Pharmacy Consult (Consult Rx Perform Med Rec) 1 each MISCELLANE ONCE PRN PRN Reason: Consult order Polyethylene Glycol (Polyethylene Glycol 3350 17 Gm Powd.Pack) 17 gm PO DAILY PRN PRN Reason: constipation Sodium Biphosphate/Sodium Phosphate (Sodium Phosphate,[place]-Dibasic 133 Ml Enema) 133 ml SC ONCE PRN PRN Reason: Constipation Trazodone HCl (Trazodone Hcl 50 Mg Tablet) 50 mg PO BEDTIME PRN PRN Reason: Insomnia Allergies Allergies Allergy/AdvReac Type Severity Reaction Status Date / Time No Known Allergies Allergy Verified 03/17/22 16:59 Assessment & Plan Assessment & Plan (1) Brief psychotic disorder: Status: Acute Code(s): F23 - Brief psychotic disorder (2) MACIEL (generalized anxiety disorder): Status: Acute Code(s): F41.1 - Generalized anxiety disorder Assessment and Plan: Vs OCD (3) Somatic delusion disorder: Status: Acute Code(s): F22 - Delusional disorders (4) Thoracic aortic aneurysm: Status: Acute Code(s): I71.20 - Thoracic aortic aneurysm, without rupture, unspecified Plan HPI: pt is a 46 yo male with long hx of anxiety, thoracic aneurysm (dx Nov 2021) who presents for severe anxiety in face of difficulty eating/drinking since this pas t monday. Pt is accompanied by his mother.? -Pt reports that this past monday he stopped being able to eat or drink since it caused pain (pointing to area just below his xiphoid process) and wretching. -hx of severe anxiety -but no hx of psychosis; no hx lyn Patient's parents review timeline events leading up to this admission: Prior to this summer, patient was overall doing fine, worked, drove his car and for the past 2 years had no obvious problems.? Parents agree that patient is drinking likely kept his anxiety down to some degree -September:? sister got diagnosed with melanoma very upsetting for patient -September:? patient had painless hematuria, cystoscopy did have a finding but it was benign -November:? About 4 years ago patient was diagnosed with thoracic aneurysm however he has not followed up.? This past summer he was going to the emergency room multiple times for various problems and eventually agreed to thoracic CT which showed that aneurysm had increased to 4.3 mg -December:? Patient had a severely ingrown toenail which required surgical extraction -January: Patient diagnosed with macular degeneration is right eye -over these months patient has been eating less and less, saying that he had little appetite, did not like the smell of meat and has lost 20 or more lb -March: on Monday patient had bloody stool; 1st bowel movement in a week On Monday patient suddenly had chest pain and subsequent retching after drinking any fluid or eating anything On 02:30 patient went to [facility] ED, blood labs were drawn but no imaging or or labs; no fluid; long wait prompted patient to return home but he then came to [place] ED where he got IV fluid HOSPITAL COURSE: .03/19 meeting w/ parents; pt anxious, lamenting that nothing can be done for him, just let him go...asking his parents to just leave him somewhere...Aircraft [employer] Mechanic asked where the side of the road? and he says yes. He denies any SI and laments i want to drink i want to eat...i just can't...i can't explain it.. but goes on to repeat that nothing can be done for him.? Patient refuses to believe that underwriter mortgage loan has seeing other patients who could not eat or drink, saying that this is a unique situation.? [employer] Mechanic and parents together tried to encourage patient to take another Ativan under his tongue, which helped yesterday however he refused and kept saying it will not help... there is no point (after patient took Ativan under his tongue he was much more reasonable and able to engage with underwriter mortgage loan and agreed that perhaps he could be helped; at that time he agreed to KUB, barium swallow and thoracic CT-each intervention was explained to patient.? Patient got the KUB but was worried about the CT and eventually refused CT).? Patient refused an IV fluids for the same reason saying it is not going to help. Patient has a thoracic aneurysm and has not been taking his metoprolol or amlodipine saying he is unable to swallow.? [employer]ic discussed with patient who understands the need for these medications for his thoracic aneurysm however He refuses IV metoprolol saying it's not going to help...? Nothing is going to help....? You can not fix me.... -patient reported that he did make urine today, that it was brown and bubbly [employer] Mechanic, Patient and mother and father discussed healthcare proxy and patient was initially ambivalent.? [employer] Mechanic explained the details of healthcare proxy;? patient asked appropriate questions and expressed he understood and said he trusts his parents and that they are great. Patient signed healthcare proxy designating his mother and than his father as alternate. Discussed case with Hospitalist Dr. Hernandez, Dr. Law (GI) and orchestra director Dr. Serrano -[facility] swallow on hold to first r/o obstruction (per amrik Law) with KUB -KUB ordered (per Dr. Law): unremarkable -CT chest/angio/aortic ordered with IV contrast to r/o worsening thoracic aneurysm (per dr. Serrano-though considers this unlikely); pt refused -fleet enema ordered: refused 03/20 Patient remains delusional 03/21 Remains delusoinal. He was able to drink some, small amount of fluid; refused IV; again discussed w/ patient consequences of refusal but he maintains that it won't help anyway. 03/22 seems more depressed today and does not respond with anxious lament when approached with questions. Remains delusional and refuses IV or any kind of medication or treatment. He seems to agree to continue allowing lab work for monitoring kidney functions. -potassium mildly low today -BUN/creatinine WNL 03/23 patient remains with paranoid delusional thinking regarding his physical health. He is trying to eat and drink and has been able to keep of food and fluids down. He continues to refuse medication of any kind, including medications prescribed by orchestra director to prevent thoracic aneurysm from worsening. Both patient's parents/healthcare proxy want him to take medications including metoprolol and amlodipine. -lytes: WNL -BUN creatinine: WNL -patient is taking in enough fluid that his kidney function remains intact and at this time patient appears stable without IV fluids 03/24 Patient remains delusional and despondent. He says he is not good and continues to say I do not know what I am going to do I am just lost. [employer] Mechanic discussed reasons to try medications to which patient says it makes sense however he follows up with I just do not know......i'm in bad shape... the only thing I know is that there are no solutions.. I am certain about... Aircraft [employer] Mechanic later met with patient again while his parents were visiting; patient's parents are urged him to try medications that underwriter mortgage loan is offering however patient adamantly refuses. He tried to help underwriter mortgage loan and family understand by saying I do not want to , I just know there is not a chance. It is the only thing left that I do know. Family discussion about healthcare proxy and involuntary commitment which patient understands. -Lytes: WNL -BUN/creatinine: WNL -Patient making urine -Patient drank about 2 cups of water by miday and drank and orange juice box; also ate a fruit cup and a tangerine -given labs and fluid intake, patient appears stable without IV fluids 03/25/2022 Patient remains anxious despondent to me a appears to be psychotically depressed somatically delusional and on able to take in information or explain his self cyst drug active and potentially life-threatening behavior if he markedly limits food and fluids based on no rational explanation. Refusing medical workup. Patient has upcoming court hearing for retention and treatment plan. Try to develop therapeutic [place] encourage labs every other day monitor food and fluid intake may intermittently need IV fluids If patient remains acute may benefit from ECT treatment which would have a more acute impact potentially 03/29/22 pt Involuntarily committed with substituted judgment for medication. [employer] Mechanic discussed this with patient who said nothing is going to help Impression/plan: Patient has chronic severe anxiety, MACIEL, possibly OCD and Somatic disorder that has become to a psychotic level; dx with brief psychotic disorder secondary to exacerbation of chronic anxiety; no hx of psychosis/lyn at all; no hx of similar presentation; up to this summer was at baseline, working, functional. Symptoms likley formally subdued with alcohol abuse Patient has hx of anxiety started in childhood.? However has functioned in the community with almost no history of psychiatric meds/therapy. No hx of any psychosis or lyn.? 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 Starting this summer patient has undergone a series of stressful events (sisters cancer dx; patients own illness) triggering excessive worry and he's been going to the ED for psychosomatic complaints (along with organic ones); he has become unable to function, along worse, does not drive, not attending to ADLs. His parents agree that given patient's baseline anxiety, all these events combined into overwhelming anxiety and and tipped scales for him decompensate leading to this admission.? Patient is not manic; though he has paranoid, somatic delusions, he has no known history of psychotic illness. Pt's OCD/MACIEL worries about his organic medical illness have become delusional making it difficult to ascertain what is going on and whether there is an organic component to his complaint that he cannot keep down food or water. Patient has no insight that he has delusional thoughts (he had 1 fleeting moment of insight after Ativan lowered anxiety). Although he can understand possible concerns/consequences of refusing treatment (such risks of worsening kidney function,which he does not want and so he eventually consents to getting blood draws to monitor) his paranoid delusional thinking makes him think all treatments are useless, won't help him and that his situation is hopeless. He is unaware the role his anxiety plays in confounding his thinking, insisting nothing will help, even when some of his complaints could be resolved with something as simple as an enema. -while starting to drink minimal amounts of fluid, patient has otherwise either unable or is refusing to drink fluids; he refuses IV for fluids, refuses thoraci c CT, refuses barium swallow, refuses Fleet enema, refuses occult stool test; intermittently refuses labs; refuses all medication including IM and SL); thus far he has eventually allowed labwork to monitor for kidney function.? Patient's anxiety is chronic but has reached a psychotic level and patient does not have the capacity to make medical decisions for himself. Patient has a detailed history of seeking treatment for his ailments. However, now he is disorganized; he says he wants to eat and drink, does not want to ...wants to live, does not want to damage his kidneys... however he refuses nearly all?treatments/interventions. -underwriter mortgage loan has discussed case w/ hospitalist and PA PLAN: Section 8b, involuntarily Civilly committed on 03/29. q15min checks. Signed HCP on 03/19/22 -INVOKE HCP: HCP's notified. Patient has paranoid delusions that severely impair his judgment and insight and he is not able to make medical decisions for himself; he is denying treatments that he would normally accept. Healthcare proxies both informed. They want patient to get IV fluids, take amlodipine and metoprolol, continue to get lab work and engage in treatment. Patient refuses fluids, amlodipine, metoprolol or other treatments. -Affirmation of HCP scheduled for 04/08/22; HCP cannot yet direct tx until affirmed -Healthcare proxies are patient's parents: both want him to have any intervention needed want patient to take Metoprolol/amlodipne for thoracic aneurysm -if patient continues not drink and to refuse treatments, specifically IV fluids, and continues to either refused to be on able to drink fluids, he will at some point risks severe and even permanent kidney damage. -currently Patient is still making urine and labs reveal kidney function remains WNL -Will continue to assess dehydration however?without fluids patient will at some point risks severe and even permanent kidney damage. -underwriter mortgage loan has discussed case with both Psychiatric Director Dr. Pérez and several hospitalists (listed throughout) -will continue to monitor labs as pt allows -Monitor for clinical signs of dehydration: Dry mucus membranes; Skin turgor, drop in blood pressure/reflex tachycardia; sunken eyes A.?Minimal PO intake fluid/food:?most likely psychogenic (KUB negative; refused barium swallow); initially not drinking or eating -pt has been drinking minimal amounts of fluid daily; now eating food, though minimal amounts. -still making urine daily -Bun/Cr and Lytes remain WNL; continue to monitor *as long as he continues to drink fluids, it looks like his kidney function remains stable.? TO DO:? 1. check bun/cr and lytes (as long as drinking fluid can be every other day)? 2. Ask if making urine daily; monitor for clinical signs of dehydration 3. if dysfunction arises call hospitalist; if patient needs emergent IV fluids or any treatment and refuses, two doctors need document that patient needs the intervention for life-saving reasons (ex: risking kidneys); HCP not yet affirmed so they cannot yet direct tx will monitor BMP will monitor for clinical signs of dehydration will monitor PO intake and if making urine B.?OCD/MACIEL/paranoid delusion/somatic disorder?(hx severe anxiety since childhood; coped w/ Etoh abuse; sober 1 yr) -Patient is severely anxious and convinced that nothing can be done for him; he has a history of seeking treatment for medical illness and if thinking clearly, would do so now. -He does not want to or harm his body, however he is convinced it Is hopeless.? -Ativan 1mg TID (refuses) -Zyprexa Zydis 5mg BID (refuses) -Patient refuses any psychotropic medications. One limited trial of lexapro maybe seven years ago.? C.?Thoracic aneurysm: -Patient prescribed Metoprolol/amlodipne; both ordered -Patient refuses both (thinks situation hopeless) -Pt refuses to allow CT to Assess thoracic aneurysm (last assessed Nov 2021 at 4.3cm; however while he initially c/o of ?sudden onset of substernal upper abdominal pain on eating/drinking, this complaint seems to have resolved making it a low concern for worsening dilation of aneurysm) Continue to encourage IV for fluids Labs: Ordered repeat BMP to monitor kidney Patient educated on: diagnosis and medication risk/benefits Informed Consent: does not understand Reason for contiued inpatient stay Substantial Risk for: harm to self and inability to function Time Spent With Patient Time: Total time managing care of this patient today ____ minutes.
[2022-03-29 16:00] VITALS: BP 135/84; PULSE 116; RESP 18; TEMP 36.6; O2SAT 98
[2022-03-29 20:00] VITALS: BP 130/86; PULSE 118; RESP 16; TEMP 36.6; O2SAT 98
[2022-03-30 08:06] VITALS: BP 112/76; PULSE 107; RESP 16; TEMP 36.8; O2SAT 96
[2022-03-30 12:36] VITALS: BP 112/84; PULSE 76; RESP 16; TEMP 36.7; O2SAT 97
[2022-03-30] MEDS: OLANZapine 10 MG VIAL 5 MG IM (13:49)
[2022-03-30 14:09] LABS: COVID-19 Test Negative (Negative); IDNOW Serial# 9DB6401D
--- NOTE | 2022-03-30 14:32 | P.PNPSI_ITS ---
Subjective Subjective Date of Service: 03/30/22 Reason For Visit: psychosis, delusions of persecution, SI Interim History: Patient anxious and looks at his lunch tray and says how much do you eat a day? Look come much they give me I can eat all this. Gathering Machine Setter answers the question and patient says he does not believe that com writer eats that much. Patient said he did drink a whole pitcher of water today. Gathering Machine Setter again reviewed the meeting of involuntary commitment and substituted judgment for medication. Patient sat up and just said it will not help, I am telling you it will not help. Patient however did receive Zyprexa IM without issue. Gathering Machine Setter discussed case with parents as well. Mental Status Exam Mental Status Exam Narrative: Pt is alert and oriented; behavior is anxious; dressed in casual attire with scruffy facial hair, disheveled, marginal hygiene; mood is described as terrible and affect congruent, anxious; minimal eye contact appropriate; Speech is normal rate, volume and prosody and not pressured; psychomotor retardation present; thought process is goal directed; Thought content is on physical ailments, hopelessness and psychosomatic delusional worries; denies any SI/HI. There is no evidence of perceptual disturbance. Patients insight and judgment are impaired. Diagnostics Vital Signs (24Hr): Vital Signs - 24 hr 03/29/22 16:00 03/29/22 20:00 03/30/22 08:06 Temperature 97.9 F 98 F 98.3 F Pulse Rate 116 H 118 H 107 H Respiratory Rate 18 16 16 Blood Pressure 135/84 130/86 112/76 Pulse Oximetry 98 98 96 Oxygen Delivery Method Room Air Room Air 03/30/22 12:36 Temperature 98.1 F Pulse Rate 76 Respiratory Rate 16 Blood Pressure 112/84 Pulse Oximetry 97 Oxygen Delivery Method Room Air BMI result Body Mass Index 37.8 Labs Results: 03/17/22 14:30 03/29/22 08:12 Labs: Laboratory Results - last 48 hr 03/29/22 03/30/22 08:12 13:40 Sodium 143 Potassium 3.7 Chloride 107 Carbon Dioxide 20 L Anion Gap 20 BUN 20 H Creatinine 0.91 Estim Creat Clear Calc 96.0 Estimated GFR > 60 Random Glucose 78 Calcium 9.4 COVID-19 ([facility]) Negative COVID-19 Clin Com See Note Imaging Radiology Impressions: ITS Impressions KUB X-Ray 03/18/22 16:35 IMPRESSION: Unremarkable examination. Medications Medications Current Medications Acetaminophen (Acetaminophen 325 Mg Tablet) 650 mg PO Q6H PRN PRN Reason: Headache/Pain Mild Scale (1-3) Al Hydroxide/Mg Hydroxide (Magnesium Hydrox/Alum Hydrox 30 Ml Oral.Susp) 30 ml PO Q6H PRN PRN Reason: Heartburn/Nausea Amlodipine Besylate (Amlodipine Besylate 5 Mg Tablet) 5 mg PO DAILY [facility]; Protocol Last Admin: 03/30/22 08:44 Dose: Not Given Hydroxyzine HCl (Hydroxyzine Hcl 25 Mg Tablet) 25 mg PO Q6H PRN PRN Reason: Anxiety Magnesium Hydroxide (Milk Of Magnesia 30 Ml Oral.Susp) 30 ml PO DAILY PRN PRN Reason: Constipation Metoprolol Succinate (Metoprolol Succinate Er 25 Mg Tab.Er.24h) 25 mg PO DAILY [facility]; Protocol Last Admin: 03/30/22 08:44 Dose: Not Given Olanzapine (Olanzapine Odt 10 Mg Tab.Rapdis) 5 mg TRANSLINGU DAILY [facility] Olanzapine (Olanzapine 10 Mg Vial) 5 mg IM DAILY PRN PRN Reason: if refuses PO Pharmacy Consult (Consult Rx Perform Med Rec) 1 each MISCELLANE ONCE PRN PRN Reason: Consult order Polyethylene Glycol (Polyethylene Glycol 3350 17 Gm Powd.Pack) 17 gm PO DAILY PRN PRN Reason: constipation Sodium Biphosphate/Sodium Phosphate (Sodium Phosphate,Howard-Dibasic 133 Ml Enema) 133 ml TX ONCE PRN PRN Reason: Constipation Trazodone HCl (Trazodone Hcl 50 Mg Tablet) 50 mg PO BEDTIME PRN PRN Reason: Insomnia Allergies Allergies Allergy/AdvReac Type Severity Reaction Status Date / Time No Known Allergies Allergy Verified 03/17/22 16:59 Assessment & Plan Assessment & Plan (1) Brief psychotic disorder: Status: Acute Code(s): F23 - Brief psychotic disorder (2) MACIEL (generalized anxiety disorder): Status: Acute Code(s): F41.1 - Generalized anxiety disorder Assessment and Plan: Vs OCD (3) Somatic delusion disorder: Status: Acute Code(s): F22 - Delusional disorders (4) Thoracic aortic aneurysm: Status: Acute Code(s): I71.20 - Thoracic aortic aneurysm, without rupture, unspecified Plan HPI: pt is a 46 yo male with long hx of anxiety, thoracic aneurysm (dx Nov 2021) who presents for severe anxiety in face of difficulty eating/drinking since this past monday. Pt is accompanied by his mother.? -Pt reports that this past monday he stopped being able to eat or drink since it caused pain (pointing to area just below his xiphoid process) and wretching. -hx of severe anxiety -but no hx of psychosis; no hx lyn Patient's parents review timeline events leading up to this admission: Prior to this summer, patient was overall doing fine, worked, drove his car and for the past 2 years had no obvious problems.? Parents agree that patient is drinking likely kept his anxiety down to some degree -September:? sister got diagnosed with melanoma very upsetting for patient -September:? patient had painless hematuria, cystoscopy did have a finding but it was benign -November:? About 4 years ago patient was diagnosed with thoracic aneurysm however he has not followed up.? This past summer he was going to the emergency room multiple times for various problems and eventually agreed to thoracic CT which showed that aneurysm had increased to 4.3 mg -December:? Patient had a severely ingrown toenail which required surgical extraction -January: Patient diagnosed with macular degeneration is right eye -over these months patient has been eating less and less, saying that he had little appetite, did not like the smell of meat and has lost 20 or more lb -March: on Monday patient had bloody stool; 1st bowel movement in a week On Monday patient suddenly had chest pain and subsequent retching after drinking any fluid or eating anything On 02:30 patient went to [facility] ED, blood labs were drawn but no imaging or or labs; no fluid; long wait prompted patient to return home but he then came to [facility] where he got IV fluid HOSPITAL COURSE: .03/19 meeting w/ parents; pt anxious, lamenting that nothing can be done for him, just let him go...asking his parents to just leave him somewhere...Gathering Machine Setter asked where the side of the road? and he says yes. He denies any SI and laments i want to drink i want to eat...i just can't...i can't explain it.. but goes on to repeat that nothing can be done for him.? Patient refuses to believe that com writer has seeing other patients who could not eat or drink, saying that this is a unique situation.? Gathering Machine Setter and parents together tried to encourage patient to take another Ativan under his tongue, which helped yesterday however he refused and kept saying it will not help... there is no point (after patient took Ativan u nder his tongue he was much more reasonable and able to engage with com writer and agreed that perhaps he could be helped; at that time he agreed to KUB, barium swallow and thoracic CT-each intervention was explained to patient.? Patient got the KUB but was worried about the CT and eventually refused CT).? Patient refused an IV fluids for the same reason saying it is not going to help. Patient has a thoracic aneurysm and has not been taking his metoprolol or amlodipine saying he is unable to swallow.? Gathering Machine Setter discussed with patient who understands the need for these medications for his thoracic aneurysm however He refuses IV metoprolol saying it's not going to help...? Nothing is going to help....? You can not fix me.... -patient reported that he did make urine today, that it was brown and bubbly Gathering Machine Setter, Patient and mother and father discussed healthcare proxy and patient was initially ambivalent.? Gathering Machine Setter explained the details of healthcare proxy;? patient asked appropriate questions and expressed he understood and said he trusts his parents and that they are great. Patient signed healthcare proxy designating his mother and than his father as alternate. Discussed case with Hospitalist Dr. Hernandez, Dr. Law (GI) and exceptional children teacher Dr. Serrano -[facility] swallow on hold to first r/o obstruction (per amrik Law) with KUB -KUB ordered (per Dr. Law): unremarkable -CT chest/angio/aortic ordered with IV contrast to r/o worsening thoracic aneurysm (per dr. Serrano-though considers this unlikely); pt refused -fleet enema ordered: refused 03/20 Patient remains delusional 03/21 Remains delusoinal. He was able to drink some, small amount of fluid; refused IV; again discussed w/ patient consequences of refusal but he maintains that it won't help anyway. 03/22 seems more depressed today and does not respond with anxious lament when approached with questions. Remains delusional and refuses IV or any kind of medication or treatment. He seems to agree to continue allowing lab work for monitoring kidney functions. -potassium mildly low today -BUN/creatinine WNL 03/23 patient remains with paranoid delusional thinking regarding his physical health. He is trying to eat and drink and has been able to keep of food and fluids down. He continues to refuse medication of any kind, including medications prescribed by exceptional children teacher to prevent thoracic aneurysm from worsen ing. Both patient's parents/healthcare proxy want him to take medications including metoprolol and amlodipine. -lytes: WNL -BUN creatinine: WNL -patient is taking in enough fluid that his kidney function remains intact and at this time patient appears stable without IV fluids 03/24 Patient remains delusional and despondent. He says he is not good and continues to say I do not know what I am going to do I am just lost. Gathering Machine Setter discussed reasons to try medications to which patient says it makes sense however he follows up with I just do not know......i'm in bad shape... the only thing I know is that there are no solutions.. I am certain about... Gathering Machine Setter later met with patient again while his parents were visiting; patient's parents are urged him to try medications that com writer is offering however patient adamantly refuses. He tried to help com writer and family understand by saying I do not want to , I just know there is not a chance. It is the only thing left that I do know. Family discussion about healthcare proxy and involuntary commitment which patient understands. -Lytes: WNL -BUN/creatinine: WNL -Patient making urine -Patient drank about 2 cups of water by miday and drank and orange juice box; also ate a fruit cup and a tangerine -given labs and fluid intake, patient appears stable without IV fluids 03/25/2022 Patient remains anxious despondent to me a appears to be psychotically depressed somatically delusional and on able to take in information or explain his self cyst drug active and potentially life-threatening behavior if he markedly limits food and fluids based on no rational explanation. Refusing medical workup. Patient has upcoming court hearing for retention and treatment plan. Try to develop therapeutic [place] encourage labs every other day monitor food and fluid intake may intermittently need IV fluids If patient remains acute may benefit from ECT treatment which would have a more acute impact potentially 03/29/22 pt Involuntarily committed with substituted judgment for medication. Gathering Machine Setter discussed this with patient who said nothing is going to help 03/30 patient starting on Zyprexa; unable to believe he can take it p.o. or SL so given IM. Patient very anxious, does not think anything will help Impression/plan: Patient has chronic severe anxiety, MACIEL, possibly OCD and Somatic disorder that has become to a psychotic level; dx with brief psychotic disorder secondary to exacerbation of chronic anxiety; no hx of psychosis/lyn at all; no hx of similar presentation; up to this summer was at baseline, working, functional. Symptoms likley formally subdued with alcohol abuse Patient has hx of anxiety started in childhood.? However has functioned in the community with almost no history of psychiatric meds/therapy. No hx of any psychosis or lyn.? 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 Starting this summer patient has undergone a series of stressful events (sisters cancer dx; patients own illness) triggering excessive worry and he's been going to the ED for psychosomatic complaints (along with organic ones); he has become unable to function, along worse, does not drive, not attending to ADLs. His parents agree that given patient's baseline anxiety, all these events combined into overwhelming anxiety and and tipped scales for him decompensate leading to this admission.? Patient is not manic; though he has paranoid, somatic delusions, he has no known history of psychotic illness. Pt's OCD/MACIEL worries about his organic medical illness have become delusional making it difficult to ascertain what is going on and whether there is an organic component to his complaint that he cannot keep down food or water. Shikha ent has no insight that he has delusional thoughts (he had 1 fleeting moment of insight after Ativan lowered anxiety). Although he can understand possible concerns/consequences of refusing treatment (such risks of worsening kidney function,which he does not want and so he eventually consents to getting blood draws to monitor) his paranoid delusional thinking makes him think all treatments are useless, won't help him and that his situation is hopeless. He is unaware the role his anxiety plays in confounding his thinking, insisting nothing will help, even when some of his complaints could be resolved with something as simple as an enema. -while starting to drink minimal amounts of fluid, patient has otherwise either unable or is refusing to drink fluids; he refuses IV for fluids, refuses th oracic CT, refuses barium swallow, refuses Fleet enema, refuses occult stool test; intermittently refuses labs; refuses all medication including IM and SL); thus far he has eventually allowed labwork to monitor for kidney function.? Patient's anxiety is chronic but has reached a psychotic level and patient does not have the capacity to make medical decisions for himself. Patient has a detailed history of seeking treatment for his ailments. However, now he is disorganized; he says he wants to eat and drink, does not want to ...wants to live, does not want to damage his kidneys... however he refuses nearly all?treatments/interventions. -com writer has discussed case w/ hospitalist and PA PLAN: Section 8b, involuntarily Civilly committed on 03/29. q15min checks. Signed HCP on 03/19/22 -INVOKE HCP: HCP's notified. Patient has paranoid delusions that severely impair his judgment and insight and he is not able to make medical decisions for himself; he is denying treatments that he would normally accept. Healthcare proxies both informed. They want patient to get IV fluids, take amlodipine and metoprolol, continue to get lab work and engage in treatment. Patient refuses fluids, amlodipine, metoprolol or other treatments. -Affirmation of HCP scheduled for 04/08/22; HCP cannot yet direct tx until affirmed -Healthcare proxies are patient's parents: both want him to have any intervention needed want patient to take Metoprolol/amlodipne for thoracic aneur ysm A.?OCD/MACIEL/paranoid delusion/somatic disorder?(hx severe anxiety since childhood; coped w/ Etoh abuse; sober 1 yr) -Patient is severely anxious and convinced that nothing can be done for him; he has a history of seeking treatment for medical illness and if thinking clearly, would do so now. -He does not want to or harm his body, however he is convinced it Is hopeless.? -Zyprexa Zydis 5mg daily: COURT ORDERED; IF REFUSES GIVE IM ZYPREXA -discussed risks/benefits of this medication and antipsychotics to both healthcare proxies who asked questions and understand and agree w/ treatment -Patient refuses any psychotropic medications. One limited trial of lexapro maybe seven years ago.? B.?Minimal PO intake fluid/food:?most likely psychogenic (KUB negative; refused barium swallow); initially not drinking or eating -pt has been drinking minimal amounts of fluid daily; now eating food, though minimal amounts. -still making urine daily -Bun/Cr and Lytes remain WNL; continue to monitor *as long as he continues to drink fluids, it looks like his kidney function remains stable.? TO DO:? 1. check bun/cr and lytes (as long as drinking fluid can be every other day)? 2. Ask if making urine daily; monitor for clinical signs of dehydration 3. if dysfunction arises call hospitalist; if patient needs emergent IV fluids or any treatment and refuses, two doctors need document that patient needs the intervention for life-saving reasons (ex: risking kidneys); HCP not yet affirmed so they cannot yet direct tx -if patient continues not drink and to refuse treatments, specifically IV fluids, and continues to either refused to be on able to drink fluids, he will at some point risks severe and even permanent kidney damage. -currently Patient is still making urine and labs reveal kidney function remains WNL -Will continue to assess dehydration however?without fluids patient will at some point risks severe and even permanent kidney damage. -com writer has discussed case with both Psychiatric Director Dr. Pérez and several hospitalists (listed throughout) -will continue to monitor labs as pt allows -Monitor for clinical signs of dehydration: Dry mucus membranes; Skin turgor, drop in blood pressure/reflex tachycardia; sunken eyes will monitor BMP will monitor for clinical signs of dehydration will monitor PO intake and if making urine C.?Thoracic aneurysm: -Patient prescribed Metoprolol/amlodipne; both ordered -Patient refuses both (thinks situation hopeless) -Pt refuses to allow CT to Assess thoracic aneurysm (last assessed Nov 2021 at 4.3cm; however while he initially c/o of ?sudden onset of substernal upper abdominal pain on eating/drinking, this complaint seems to have resolved making it a low concern for worsening dilation of aneurysm) Continue to encourage IV for fluids Labs: Ordered repeat BMP to monitor kidney -at this time IM medications are not available for metoprolol or amlodipine; hopefully patient will again become adherent; if not will consult Cardiology for alternative Patient educated on: diagnosis and medication risk/benefits Informed Consent: does not understand Reason for contiued inpatient stay Substantial Risk for: harm to self and inability to function Time Spent With Patient Time: Total time managing care of this patient today ____ minutes.
[2022-03-30 16:00] VITALS: BP 129/80; PULSE 124; RESP 20; TEMP 37.4; O2SAT 99
[2022-03-31 09:45] VITALS: BP 111/81; PULSE 120; RESP 16; TEMP 36.3; O2SAT 97
[2022-03-31] MEDS: OLANZapine 10 MG VIAL 5 MG IM (10:03)
[2022-03-31 10:09] LABS: Anion Gap 19 (12-20); Blood Urea Nitrogen 27 mg/dL (9-16); Calcium 9.8 mg/dL (8.4-10.2); Carbon Dioxide 21 mmol/L (22-29); Chloride 108 mmol/L (96-108); Estimated Glomerular Filt Rate > 60; Glucose Random 83 mg/dL (60-115); Potassium 3.7 mmol/L (3.3-5.1); Sodium 144 mmol/L (135-145)
--- NOTE | 2022-03-31 11:10 | PM.CNCAR ---
History of Present Illness History of Present Illness Date of Service: 03/31/22 Requesting physician: Ivan Vanessa Consult reason: other (Thoracic aortic aneurysm) Chief complaint: psychosis, delusions of persecution, SI Narrative: I was consulted to see Justice in cardiology consultation today because of his given history of thoracic aortic aneurysm which by [facility] record was noted to be 4.3 cm of ascending aorta. Manage conservatively with metoprolol and amlodipine. Patient admitted to the psychiatric unit because of delusions and general anxiety disorder. He is not refusing to take his oral medications. On questioning why he is not able to give me are very reasonable answer. He said he just does not want to. I explained to him about the need for it and he said he will not take any medications. His heart rate is elevated on physical exam and occasionally blood pressure is elevated. He has no chest pain. There is also concern for using psychoactive medication. Patient is aware of his diagnosis of thoracic aortic aneurysm but just not seem to understand his medical conditions well. Review of Systems Review of Systems: Yes Unobtainable due to mental status PMFSH Past Medical History Medical History HTN (hypertension) Social History Social History Household Members: Other Household Members Other:: lives with parents Housing: House Do you presently have visiting nurse or other home services: No Patient Tobacco Use Status: Never used Tobacco Use of substances other than those prescribed or required for medical reasons: No Currently Displaying Signs/Symptoms of Drug Intoxication Withdrawal: No Have you been hit, kicked, punched, or otherwise hurt by someone within the past year? If so, by whom?: No Do you feel safe in your current relationship?: Yes Is there a partner from a previous relationship who is making you feel unsafe now?: No Are you made to feel afraid or neglected: No Spiritual Healthcare Practices: none Roman Catholic Healthcare Practices: none Cultural Healthcare Practices: none Advance Directives: No Advance Directives Information Provided: No Do you have thoughts of harming others: None Do you have a plan to hurt others: No Plan Recently lost weight without trying: Yes How much weight loss: 2-13 pounds Eating poorly because of decreased appetite: Yes Nutrition screen score: 4 Nutrition Risks: Poor intake 0-25% >4 days Poor oral hygiene: No service: No Sexual orientation: Decline to Answer Meds Allergies Allergy/AdvReac Type Severity Reaction Status Date / Time No Known Allergies Allergy Verified 03/17/22 16:59 Active Medications: Current Medications Acetaminophen (Acetaminophen 325 Mg Tablet) 650 mg PO Q6H PRN PRN Reason: Headache/Pain Mild Scale (1-3) Al Hydroxide/Mg Hydroxide (Magnesium Hydrox/Alum Hydrox 30 Ml Oral.Susp) 30 ml PO Q6H PRN PRN Reason: Heartburn/Nausea Amlodipine Besylate (Amlodipine Besylate 5 Mg Tablet) 5 mg PO DAILY [place]; Protocol Last Admin: 03/31/22 10:01 Dose: Not Given Lorazepam (Lorazepam 1 Mg Tablet) 1 mg PO Q4H PRN PRN Reason: Anxiety Magnesium Hydroxide (Milk Of Magnesia 30 Ml Oral.Susp) 30 ml PO DAILY PRN PRN Reason: Constipation Metoprolol Succinate (Metoprolol Succinate Er 25 Mg Tab.Er.24h) 25 mg PO DAILY [place]; Protocol Last Admin: 03/31/22 10:01 Dose: Not Given Olanzapine (Olanzapine Odt 10 Mg Tab.Rapdis) 5 mg TRANSLINGU DAILY [place] Last Admin: 03/31/22 10:01 Dose: Not Given Olanzapine (Olanzapine 10 Mg Vial) 5 mg IM DAILY PRN PRN Reason: if refuses PO Last Admin: 03/31/22 10:03 Dose: 5 mg Polyethylene Glycol (Polyethylene Glycol 3350 17 Gm Powd.Pack) 17 gm PO DAILY PRN PRN Reason: constipation Sodium Biphosphate/Sodium Phosphate (Sodium Phosphate,[place]-Dibasic 133 Ml Enema) 133 ml TX ONCE PRN PRN Reason: Constipation Trazodone HCl (Trazodone Hcl 50 Mg Tablet) 50 mg PO BEDTIME PRN PRN Reason: Insomnia Home Medications Medication Instructions Recorded Confirmed Last Taken Type amlodipine 5 mg tablet 1 tab PO DAILY 03/17/22 03/17/22 03/17/22 History metoprolol succinate 25 mg 1 tab PO DAILY 03/17/22 03/17/22 03/17/22 History tablet,extended release 24 hr Physical Exam Vital Signs: Vital Signs: Last Vital Signs Temp 97.4 F 03/31/22 09:45 Pulse 120 H 03/31/22 09:45 Resp 16 03/31/22 09:45 BP 111/81 12/29/22 09:45 Pulse Ox 97 03/31/22 09:45 O2 Del Method 03/31/22 09:45 BMI result Body Mass Index 37.8 Const: General: cooperative, no acute distress, alert, awake and anxious Nutritional Appearance: obese Limitations: no limitations HEENT: Head: Yes normocephalic and Yes atraumatic Neck: Neck: Yes trachea midline, Yes supple and Yes no JVD Resp: Effort & Inspection: normal respiratory effort Auscultation: clear to auscultation bilaterally Cardio: Jugular venous distension: no JVD Palpation: normal PMI Rate: regular rate Rhythm: regular rhythm Heart sounds: S1 normal heart sound present, S2 normal heart sound present, no click, no gallops, no murmurs and no rubs GI: Auscultation: normal bowel sounds Skin: General skin exam: no rashes or lesions noted Neuro: General: no focal motor deficits Extrem: General: Yes no clubbing, cyanosis or edema Objective Labs and Meds Result diagrams: 03/17/22 14:30 03/31/22 08:05 Lab results: Laboratory Results - last 24 hr 03/30/22 03/31/22 13:40 08:05 Sodium 144 Potassium 3.7 Chloride 108 Carbon Dioxide 21 L Anion Gap 19 BUN 27 H Creatinine 1.15 Estim Creat Clear Calc 76.0 Estimated GFR > 60 Random Glucose 83 Calcium 9.8 COVID-19 ([facility]) Negative COVID-19 Clin Com See Note Assessment and Plan (1) Thoracic aortic aneurysm: Status: Acute Known chronic thoracic aortic aneurysm without any acute symptoms. This is a chronic condition and there is no acute due to this lesion. It needs to be treated in the long run with medications such as metoprolol and other antihypertensive is a blood pressure remains elevated on metoprolol therapy to reduce she was stressed on the aorta. However is not having any acute symptoms at this point in time. Risk of rupture is very low in mild thoracic aortic aneurysm. His refusal of taking medication appears to be due to lack of understanding as well as his psychiatric condition that prevents him from processing the information. I would concentrate on treating his psychiatric condition so as to then eventually able to understand the need for taking medications. 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 If he has intermittent hypertensive episode which again seems to be driven by acute anxiety, would consider treating the anxiety disorder. Can use metoprolol intramuscularly if needed for acute hypertension. Although patient is currently refusing taking his medication and focus should be try to make him understand to take his medications. There is no relation should between thoracic aortic aneurysm and QT prolongation. Use of psychoactive medication as needed can be used and I do not see any clear contraindication, his EKG done on admission shows normal QTC interval. Usual precautions for QT prolongation with avoidance of other QT prolonging drugs and maintaining electrolytes especially magnesium and potassium in normal range. Also can check QTC interval after initiating psychoactive medications at a known to prolong QT interval. Will follow up if need be. Time Spent With Patient Time: Total time managing care of this patient today ____ minutes. Procedures Date of Service Date of Service: 03/31/22
[2022-03-31 13:00] VITALS: BP 118/79; PULSE 109; RESP 16; TEMP 36.9; O2SAT 98
--- NOTE | 2022-03-31 16:23 | HO.PSYCHPN ---
Subjective Subjective Date of Service: 03/31/22 Reason For Visit: psychosis, delusions of persecution, SI Interim History: Remains delusional and hopeless, lying on the bed, not attending to ADLs.? He refuses mouth swabs.? Says he is unable to drink or keep anything down even when he does so in front of development writer.? He is willing to drink when strongly encouraged to do so. ?He keeps saying ??the water gets stuck? the water gets stuck? even though he is swallowing it without problem. Discussed kidney function and switching to daily labs. Won't take Zydis Discussed case w/ final expense agent today regarding medication for thoracic aneurysm; Metoprolol able to be given IM if needed. See recs in assessment. Mental Status Exam Mental Status Exam Narrative: Pt is alert and oriented; behavior is anxious; dressed in casual attire with scruffy facial hair, disheveled, marginal hygiene; mood is described as you guys don't understand and affect anxious, distraught or depsondent; minimal eye contact appropriate; Speech is normal rate, volume and prosody and not pressured; psychomotor retardation present; thought process is goal directed; Thought content is on physical ailments, hopelessness and psychosomatic delusional worries; denies any SI/HI. There is no evidence of perceptual disturbance. Patients insight and judgment are impaired. Diagnostics Vital Signs (24Hr): Vital Signs - 24 hr 03/31/22 09:45 03/31/22 13:00 Temperature 97.4 F 98.4 F Pulse Rate 120 H 109 H Respiratory Rate 16 16 Blood Pressure 111/81 118/79 Pulse Oximetry 97 98 Oxygen Delivery Method Room Air Room Air BMI result Body Mass Index 37.8 Labs Results: 03/17/22 14:30 03/31/22 08:05 Labs: Laboratory Results - last 48 hr 03/30/22 03/31/22 13:40 08:05 Sodium 144 Potassium 3.7 Chloride 108 Carbon Dioxide 21 L Anion Gap 19 BUN 27 H Creatinine 1.15 Estim Creat Clear Calc 76.0 Estimated GFR > 60 Random Glucose 83 Calcium 9.8 COVID-19 ([facility]) Negative COVID-19 Clin Com See Note Imaging Radiology Impressions: ITS Impressions KUB X-Ray 03/18/22 16:35 IMPRESSION: Unremarkable examination. Medications Medications Current Medications Acetaminophen (Acetaminophen 325 Mg Tablet) 650 mg PO Q6H PRN PRN Reason: Headache/Pain Mild Scale (1-3) Al Hydroxide/Mg Hydroxide (Magnesium Hydrox/Alum Hydrox 30 Ml Oral.Susp) 30 ml PO Q6H PRN PRN Reason: Heartburn/Nausea Amlodipine Besylate (Amlodipine Besylate 5 Mg Tablet) 5 mg PO DAILY [facility]; Protocol Last Admin: 03/31/22 10:01 Dose: Not Given Chlorhexidine Gluconate (Chlorhexidine Gluc Oral Rinse 15 Ml Mouthwash) 15 ml BUCCAL TID [facility] Lorazepam (Lorazepam 1 Mg Tablet) 1 mg PO Q4H PRN PRN Reason: Anxiety Magnesium Hydroxide (Milk Of Magnesia 30 Ml Oral.Susp) 30 ml PO DAILY PRN PRN Reason: Constipation Metoprolol Succinate (Metoprolol Succinate Er 25 Mg Tab.Er.24h) 25 mg PO DAILY [facility]; Protocol Last Admin: 03/31/22 10:01 Dose: Not Given Olanzapine (Olanzapine 10 Mg Vial) 10 mg IM DAILY PRN PRN Reason: if refuses PO Olanzapine (Olanzapine Odt 10 Mg Tab.Rapdis) 10 mg TRANSLINGU DAILY [facility] Polyethylene Glycol (Polyethylene Glycol 3350 17 Gm Powd.Pack) 17 gm PO DAILY PRN PRN Reason: constipation Sodium Biphosphate/Sodium Phosphate (Sodium Phosphate,Greene-Dibasic 133 Ml Enema) 133 ml IN ONCE PRN PRN Reason: Constipation Trazodone HCl (Trazodone Hcl 50 Mg Tablet) 50 mg PO BEDTIME PRN PRN Reason: Insomnia Allergies Allergies Allergy/AdvReac Type Severity Reaction Status Date / Time No Known Allergies Allergy Verified 03/17/22 16:59 Assessment & Plan Assessment & Plan (1) Thoracic aortic aneurysm: Status: Acute Code(s): I71.20 - Thoracic aortic aneurysm, without rupture, unspecified Assessment and Plan: Known chronic thoracic aortic aneurysm without any acute symptoms. This is a chronic condition and there is no acute due to this lesion. It needs to be treated in the long run with medications such as metoprolol and other antihypertensive is a blood pressure remains elevated on metoprolol therapy to reduce she was stressed on the aorta. However is not having any acute symptoms at this point in time. Risk of rupture is very low in mild thoracic aortic aneurysm. His refusal of taking medication appears to be due to lack of understanding as well as his psychiatric condition that prevents him from processing the information. I would concentrate on treating his psychiatric condition so as to then eventually able to understand the need for taking medications. In the long run he will need to be followed as an outpatient by her final expense agent that he was following before. If he has intermittent hypertensive episode which again seems to be driven by acute anxiety, would consider treating the anxiety disorder. Can use metoprolol intramuscularly if needed for acute hypertension. Although patient is currently refusing taking his medication and focus should be try to make him understand to take his medications. There is no relation should between thoracic aortic aneurysm and QT prolongation. Use of psychoactive medication as needed can be used and I do not see any clear contraindication, his EKG done on admission shows normal QTC interval. Usual precautions for QT prolongation with avoidance of other QT prolonging drugs and maintaining electrolytes especially magnesium and potassium in normal range. Also can check QTC interval after initiating psychoactive medications at a known to prolong QT interval. Will follow up if need be. Plan HPI: pt is a 46 yo male with long hx of anxiety, thoracic aneurysm (dx Nov 2021) who presents for severe anxiety in face of difficulty eating/drinking since this past monday. Pt is accompanied by his mother.? -Pt reports that this past monday he stopped being able to eat or drink since it caused pain (pointing to area just below his xiphoid process) and wretching. -hx of severe anxiety -but no hx of psychosis; no hx lyn Patient's parents review timeline events leading up to this admission: Prior to this summer, patient was overall doing fine, worked, drove his car and for the past 2 years had no obvious problems.? Parents agree that patient is drinking likely kept his anxiety down to some degree -September:? sister got diagnosed with melanoma very upsetting for patient -September:? patient had painless hematuria, cystoscopy did have a finding but it was benign -November:? About 4 years ago patient was diagnosed with thoracic aneurysm however he has not followed up.? This past summer he was going to the emergency room multiple times for various problems and eventually agreed to thoracic CT which showed that aneurysm had increased to 4.3 mg -December:? Patient had a severely ingrown toenail which required surgical extraction -January: Patient diagnosed with macular degeneration is right eye -over these months patient has been eating less and less, saying that he had little appetite, did not like the smell of meat and has lost 20 or more lb -March: on Monday patient had bloody stool; 1st bowel movement in a week On Monday patient suddenly had chest pain and subsequent retching after drinking any fluid or eating anything On 02:30 patient went to [facility] ED, blood labs were drawn but no imaging or or labs; no fluid; long wait prompted patient to return home but he then came to [facility] where he got IV fluid HOSPITAL COURSE: .03/19 meeting w/ parents; pt anxious, lamenting that nothing can be done for him, just let him go...asking his parents to just leave him somewhere...Management Associate asked where the side of the road? and he says yes. He denies any SI and laments i want to drink i want to eat...i just can't...i can't explain it.. but goes on to repeat that nothing can be done for him.? Patient refuses to believe that development writer has seeing other patients who could not eat or drink, saying that this is a unique situation.? Management Associate and parents together tried to encourage patient to take another Ativan under his tongue, which helped yesterday however he refused and kept saying it will not help... there is no point (after patient took Ativan under his tongue he was much more reasonable and able to engage with development writer and agreed that perhaps he could be helped; at that time he agreed to KUB, barium swallow and thoracic CT-each intervention was explained to patient.? Patient got the KUB but was worried about the CT and eventually refused CT).? Patient refused an IV fluids for the same reason saying it is not going to help. Patient has a thoracic aneurysm and has not been taking his metoprolol or amlodipine saying he is unable to swallow.? Management Associate discussed with patient who understands the need for these medications for his thoracic aneurysm however He refuses IV metoprolol saying it's not going to help...? Nothing is going to help....? You can not fix me.... -patient reported that he did make urine today, that it was brown and bubbly Management Associate, Patient and mother and father discussed healthcare proxy and patient was initially ambivalent.? Management Associate explained the details of healthcare proxy;? patient asked appropriate questions and expressed he understood and said he trusts his parents and that they are great. Patient signed healthcare proxy designating his mother and than his father as alternate. Discussed case with Hospitalist Dr. Hernandez, Dr. Law (GI) and final expense agent Dr. Serrano -Barrium swallow on hold to first r/o obstruction (per amrik Law) with KUB -KUB ordered (per Dr. Law): unremarkable -CT chest/angio/aortic ordered with IV contrast to r/o worsening thoracic aneurysm (per dr. Serrano-though considers this unlikely); pt refused -fleet enema ordered: refused 03/20 Patient remains delusional 03/21 Remains delusoinal. He was able to drink some, small amount of fluid; refused IV; again discussed w/ patient consequences of refusal but he maintains that it won't help anyway. 03/22 seems more depressed today and does not respond with anxious lament when approached with questions.? Remains delusional and refuses IV or any kind of medication or treatment.? He seems to agree to continue allowing lab work for monitoring kidney functions. -potassium mildly low today -BUN/creatinine WNL 03/23 patient remains with paranoid delusional thinking regarding his physical health.? He is trying to eat and drink and has been able to keep of food and fluids down.? He continues to refuse medication of any kind, including medications prescribed by final expense agent to prevent thoracic aneurysm from worsening.? Both patient's parents/healthcare proxy want him to take medications including metoprolol and amlodipine. -lytes: WNL -BUN creatinine: WNL -patient is taking in enough fluid that his kidney function remains intact and at this time patient appears stable without IV fluids 03/24 Patient remains delusional and despondent.? He says he is not good and continues to say I do not know what I am going to do I am just lost. Management Associate discussed reasons to try medications to which patient says it makes sense however he follows up with I just do not know......i'm in bad shape... the only thing I know is that there are no solutions..? I am certain about... Management Associate later met with patient again while his parents were visiting; patient's parents are urged him to try medications that development writer is offering however patient adamantly refuses.? He tried to help development writer and family understand by saying I do not want to , I just know there is not a chance.? It is the only thing left that I do know. ? Family discussion about healthcare proxy and involuntary commitment which patient understands. -Lytes: WNL -BUN/creatinine: WNL -Patient making urine -Patient drank about 2 cups of water by miday and drank and orange juice box; also ate a fruit cup and a tangerine -given labs and fluid intake, patient appears stable without IV fluids 03/25/2022 Patient remains anxious despondent to me a appears to be psychotically depressed somatically delusional and on able to take in information or explain his self cyst drug active and potentially life-threatening behavior if he markedly limits food and fluids based on no rational explanation.? Refusing medical workup.? Patient has upcoming court hearing for retention and treatment plan.? Try to develop therapeutic Itmann encourage labs every other day monitor food and fluid intake may intermittently need IV fluids If patient remains acute may benefit from ECT treatment which would have a more acute impact potentially 03/29/22 pt Involuntarily committed with substituted judgment for medication.? Management Associate discussed this with patient who said nothing is going to help 03/30 patient starting on Zyprexa; unable to believe he can take it p.o. or SL so given IM.? Patient very anxious, does not think anything will help 03/31 Remains delusional; Only Drinking when prompted to do so. Patient agrees there is no chest pain when eating or drinking and that doing so does not make him retch/vomit.? However he continues to assert that he can not drink even when he does so in front of development writer.? Creatinine bumped up today.? 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 Symptoms likley formally subdued with alcohol abuse Patient has hx of anxiety started in childhood.? However has functioned in the community with almost no history of psychiatric meds/therapy. No hx of any psychosis or lyn.? 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 Starting this summer patient has undergone a series of stressful events (sisters cancer dx; patients own illness) triggering excessive worry and he's been going to the ED for psychosomatic complaints (along with organic ones); he has become unable to function, along worse, does not drive, not attending to ADLs. His parents agree that given patient's baseline anxiety, all these events combined into overwhelming anxiety and and tipped scales for him decompensate leading to this admission.? Patient is not manic; though he has paranoid, somatic delusions, he has no known history of psychotic illness. Pt's MACIEL/Somatic delusional worries (and possibly OCD) about his organic medical illness have become delusional making it difficult to ascertain what is going on and whether there is an organic component to his complaint that he cannot keep down food or water. Patient has no insight that he has delusional thoughts (he had 1 fleeting moment of insight after Ativan lowered anxiety). Although he can understand possible concerns/consequences of refusing treatment (such risks of worsening kidney function,which he does not want and so he eventually consents to getting blood draws to monitor) his paranoid delusional thinking makes him think all treatments are useless, won't help him and that his situation is hopeless. He is unaware the role his anxiety plays in confounding his thinking, insisting nothing will help, even when some of his complaints could be resolved with something as simple as an enema. -while starting to drink minimal amounts of fluid, patient has otherwise either unable or is refusing to drink fluids; he refuses IV for fluids, refuses thoracic CT, refuses barium swallow, refuses Fleet enema, refuses occult stool test; intermittently refuses labs; refuses all medication including IM and SL); thus far he has eventually allowed labwork to monitor for kidney function.? Patient's anxiety is chronic but has reached a psychotic level and patient does not have the capacity to make medical decisions for himself. Patient has a detailed history of seeking treatment for his ailments. However, now he is disorganized; he says he wants to eat and drink, does not want to ...wants to live, does not want to damage his kidneys... however he refuses nearly all?treatments/interventions. -development writer has discussed case w/ hospitalist and PA PLAN: Section 8b, involuntarily Civilly committed on 03/29.? q15min checks.? Signed HCP on 03/19/22 -INVOKE HCP: HCP's notified. Patient has paranoid delusions that severely impair his judgment and insight and he is not able to make medical decisions for himself; he is denying treatments that he would normally accept.? Healthcare proxies both informed.? They want patient to get IV fluids, take amlodipine and metoprolol, continue to get lab work and engage in treatment.? Patient refuses fluids, amlodipine, metoprolol or other treatments. -Affirmation of HCP scheduled for 04/08/22;? HCP cannot yet direct tx until affirmed -Healthcare proxies are patient's parents: both want him to have any intervention needed want patient to take Metoprolol/amlodipne for thoracic aneurysm A.?OCD/MACIEL/paranoid delusion/somatic disorder?(hx severe anxiety since childhood; coped w/ Etoh abuse; sober 1 yr) -Patient is severely anxious and convinced that nothing can be done for him; he has a history of seeking treatment for medical illness and if thinking clearly, would do so now. -He does not want to or harm his body, however he is convinced it Is hopeless.? -INCREASE to Zyprexa Zydis 10mg daily:? COURT ORDERED; IF REFUSES GIVE IM ZYPREXA -discussed risks/benefits of this medication and antipsychotics to both healthcare proxies who asked questions and understand and agree w/ treatment -Patient refuses any psychotropic medications. One limited trial of lexapro maybe seven years ago.? B.?Minimal PO intake fluid/food:?most likely psychogenic (KUB negative; refused barium swallow); initially not drinking or eating -with prompting pt has been drinking minimal amounts of fluid daily; eating food, though minimal amounts. -still making urine daily -Bun/Cr and Lytes remain WNL; continue to monitor *as long as he continues to drink fluids, it looks like his kidney function remains stable.? -Ordered oral hygiene care t.i.d. with chlorhexidine mouthwash TO DO:? 1. check bun/cr and lytes daily 2. Ask if making urine daily; monitor for clinical signs of dehydration 3. if dysfunction arises call hospitalist; if patient needs emergent IV fluids or any treatment and refuses, two doctors need document that patient needs the intervention for life-saving reasons (ex: risking kidneys); HCP not yet affirmed so they cannot yet direct tx -if patient continues not drink and to refuse treatments, specifically IV fluids, and continues to either refused to be on able to drink fluids, he will at some point risks severe and even permanent kidney damage. -currently Patient is still making urine and labs reveal kidney function remains WNL -Will continue to assess dehydration however?without fluids patient will at some point risks severe and even permanent kidney damage. -development writer has discussed case with both Psychiatric Director Dr. Pérez and several hospitalists (listed throughout) -will continue to monitor labs as pt allows -Monitor for clinical signs of dehydration: Dry mucus membranes; Skin turgor, drop in blood pressure/reflex tachycardia; sunken eyes will monitor BMP will monitor for clinical signs of dehydration will monitor PO intake and if making urine C.?Thoracic aneurysm: consulted with Community Outreach Director Dr. Pennington and appreciate recommendations above -Patient refusing Metoprolol/amlodipne; both ordered (thinks situation hopeless) -Pt refuses to allow CT to Assess thoracic aneurysm (last assessed Nov 2021 at 4.3cm; however while he initially c/o of ?sudden onset of substernal upper abdominal pain on eating/drinking, this complaint has resolved making this no longer a concern) Patient educated on: diagnosis, medication risk/benefits and medical condition Informed Consent: does not understand Reason for contiued inpatient stay Substantial Risk for: inability to function Time Spent With Patient Time: Total time managing care of this patient today ____ minutes.
[2022-03-31 17:05] VITALS: BP 116/76; PULSE 118; RESP 16; TEMP 36.3; O2SAT 94
[2022-03-31 19:27] VITALS: BP 128/78; PULSE 82; RESP 16; TEMP 36.3; O2SAT 98
[2022-04-01 05:00] VITALS: BP 128/75; PULSE 90; TEMP 36.3; O2SAT 98
--- NOTE | 2022-04-01 08:30 | PC.NURSE ---
pt refused morning medications. continues to be perseverative nothing can help me, you can't help me, the meds can't help me . pt refused chlorohexadine mouth wash however he did consume about 6oz of water.
[2022-04-01 08:44] LABS: Anion Gap 19 (12-20); Blood Urea Nitrogen 31 mg/dL (9-16); Calcium 9.5 mg/dL (8.4-10.2); Carbon Dioxide 21 mmol/L (22-29); Chloride 111 mmol/L (96-108); Creatinine Clr Calc Pharmacy 78.7; Estimated Glomerular Filt Rate > 60; Glucose Random 88 mg/dL (60-115); Potassium 3.6 mmol/L (3.3-5.1); Sodium 147 mmol/L (135-145)
--- NOTE | 2022-04-01 10:16 | P.PNPSI_ITS ---
Subjective Subjective Date of Service: 04/01/22 Reason For Visit: psychosis, delusions of persecution, SI Interim History: Patient remains with paranoid delusion that something is wrong with him that no one can understand it and that this situation is helpless. Patient slept himself in the face a couple times but was redirectable. Patient drink half a bottle of water in front of fiction writer at fiction writer's prompting. Did so also earlier with the nurse. Allows for Zyprexa IM but refuses p.o.. Allows for passive oral hygiene with prompting. Patient's mother present. Behavioral Interventionist also met with father later on. Case again discussed with Dr. Pérez Mental Status Exam Mental Status Exam Narrative: Pt is alert and oriented; behavior is anxious; dressed in casual attire with scr uffy facial hair, disheveled, marginal hygiene; mood is described as you guys don't understand and affect anxious, distraught or depsondent; minimal eye contact appropriate; Speech is normal rate, volume and prosody and not pressured; psychomotor retardation present; thought process is goal directed; Thought content is on physical ailments, hopelessness and psychosomatic delusional worries; denies any SI/HI. There is no evidence of perceptual disturbance. Patients insight and judgment are impaired. Diagnostics Vital Signs (24Hr): Vital Signs - 24 hr 03/31/22 13:00 03/31/22 17:05 03/31/22 19:27 Temperature 98.4 F 97.4 F 97.4 F Pulse Rate 109 H 118 H 82 Respiratory Rate 16 16 16 Blood Pressure 118/79 116/76 128/78 Pulse Oximetry 98 94 98 Oxygen Delivery Method Room Air Room Air Room Air 04/01/22 05:00 Temperature 97.4 F Pulse Rate 90 Respiratory Rate Blood Pressure 128/75 Pulse Oximetry 98 Oxygen Delivery Method Room Air BMI result Body Mass Index 37.8 Labs Results: 03/17/22 14:30 04/01/22 08:04 Labs: Laboratory Results - last 48 hr 03/30/22 03/31/22 04/01/22 13:40 08:05 08:04 Sodium 144 147 H Potassium 3.7 3.6 Chloride 108 111 H Carbon Dioxide 21 L 21 L Anion Gap 19 19 BUN 27 H 31 H Creatinine 1.15 1.11 Estim Creat Clear Calc 76.0 78.7 Estimated GFR > 60 > 60 Random Glucose 83 88 Calcium 9.8 9.5 COVID-19 ([facility]ANNA) Negative COVID-19 Clin Com See Note Imaging Radiology Impressions: ITS Impressions KUB X-Ray 03/18/22 16:35 IMPRESSION: Unremarkable examination. Medications Medications Current Medications Acetaminophen (Acetaminophen 325 Mg Tablet) 650 mg PO Q6H PRN PRN Reason: Headache/Pain Mild Scale (1-3) Al Hydroxide/Mg Hydroxide (Magnesium Hydrox/Alum Hydrox 30 Ml Oral.Susp) 30 ml PO Q6H PRN PRN Reason: Heartburn/Nausea Amlodipine Besylate (Amlodipine Besylate 5 Mg Tablet) 5 mg PO DAILY [facility]; Protocol Last Admin: 04/01/22 08:29 Dose: Not Given Chlorhexidine Gluconate (Chlorhexidine Gluc Oral Rinse 15 Ml Mouthwash) 15 ml BUCCAL TID [place] Last Admin: 04/01/22 08:30 Dose: Not Given Lorazepam (Lorazepam 1 Mg Tablet) 1 mg PO Q4H PRN PRN Reason: Anxiety Magnesium Hydroxide (Milk Of Magnesia 30 Ml Oral.Susp) 30 ml PO DAILY PRN PRN Reason: Constipation Metoprolol Succinate (Metoprolol Succinate Er 25 Mg Tab.Er.24h) 25 mg PO DAILY [facility]; Protocol Last Admin: 04/01/22 08:30 Dose: Not Given Olanzapine (Olanzapine 10 Mg Vial) 10 mg IM DAILY PRN PRN Reason: if refuses PO Olanzapine (Olanzapine Odt 10 Mg Tab.Rapdis) 10 mg TRANSLINGU DAILY [facility] Last Admin: 04/01/22 08:30 Dose: Not Given Polyethylene Glycol (Polyethylene Glycol 3350 17 Gm Powd.Pack) 17 gm PO DAILY PRN PRN Reason: constipation Sodium Biphosphate/Sodium Phosphate (Sodium Phosphate,[place]-Dibasic 133 Ml Enema) 133 ml MO ONCE PRN PRN Reason: Constipation Trazodone HCl (Trazodone Hcl 50 Mg Tablet) 50 mg PO BEDTIME PRN PRN Reason: Insomnia Allergies Allergies Allergy/AdvReac Type Severity Reaction Status Date / Time No Known Allergies Allergy Verified 03/17/22 16:59 Assessment & Plan Assessment & Plan (1) Thoracic aortic aneurysm: Status: Acute Code(s): I71.20 - Thoracic aortic aneurysm, without rupture, unspecified Assessment and Plan: Known chronic thoracic aortic aneurysm without any acute symptoms. This is a chronic condition and there is no acute due to this lesion. It needs to be [place] in the long run with medications such as metoprolol and other antihypertensive is a blood pressure remains elevated on metoprolol therapy to reduce she was stressed on the aorta. However is not having any acute symptoms at this point in time. Risk of rupture is very low in mild thoracic aortic aneurysm. His refusal of taking medication appears to be due to lack of understanding as well as his psychiatric condition that prevents him from processing the information. I would concentrate on treating his psychiatric condition so as to then eventually able to understand the need for taking m edications. In the long run he will need to be followed as an outpatient by her pattern carrier that he was following before. If he has intermittent hypertensive episode which again seems to be driven by acute anxiety, would consider treating the anxiety disorder. Can use metoprolol intramuscularly if needed for acute hypertension. Although patient is currently refusing taking his medication and focus should be try to make him understand to take his medications. There is no relation should between thoracic aortic aneurysm and QT prolongation. Use of psychoactive medication as needed can be used and I do not see any clear contraindication, his EKG done on admission shows normal QTC interval. Usual precautions for QT prolongation with avoidance of other QT prolonging drugs and maintaining electrolytes especially magnesium and potassium in normal range. Also can check QTC interval after initiating psychoactive medications at a known to prolong QT interval. Will follow up if need be. Plan HPI: pt is a 46 yo male with long hx of anxiety, thoracic aneurysm (dx Nov 2021) who presents for severe anxiety in face of difficulty eating/drinking since this past monday. Pt is accompanied by his mother.? -Pt reports that this past monday he stopped being able to eat or drink since it caused pain (pointing to area just below his xiphoid process) and wretching. -hx of severe anxiety -but no hx of psychosis; no hx lyn Patient's parents review timeline events leading up to this admission: Prior to this summer, patient was overall doing fine, worked, drove his car and for the past 2 years had no obvious problems.? Parents agree that patient is drinking likely kept his anxiety down to some degree -September:? sister got diagnosed with melanoma very upsetting for patient -September:? patient had painless hematuria, cystoscopy did have a finding but it was benign -November:? About 4 years ago patient was diagnosed with thoracic aneurysm however he has not followed up.? This past summer [facility] problems and eventually agreed to thoracic CT which showed that aneurysm had increased to 4.3 mg -December:? Patient had a severely ingrown toenail which required surgical e xtraction -January: Patient diagnosed with macular degeneration is right eye -over these months patient has been eating less and less, saying that he had little appetite, did not like the smell of meat and has lost 20 or more lb -March: on Monday patient had bloody stool; 1st bowel movement in a week On Monday patient suddenly had chest pain and subsequent retching after drinking any fluid or eating anything On 02:30 patient went to [facility] ED, blood labs were drawn but no imaging or or labs; no fluid; long wait prompted patient to return home but he then came to [place] ED where he got IV fluid HOSPITAL COURSE: .03/19 meeting w/ parents; pt anxious, lamenting that nothing can be done for him, just let him go...asking his parents to just leave him somewhere...Behavioral Interventionist asked where the side of the road? and he says yes. He denies any SI and laments i want to drink i want to eat...i just can't...i can't explain it.. but goes on to repeat that nothing can be done for him.? Patient refuses to believe that fiction writer has seeing other patients who could not eat or drink, saying that this is a unique situation.? Behavioral Interventionist and parents together tried to encourage patient to take another Ativan under his tongue, which helped yesterday however he refused and kept saying it will not help... there is no point (after patient took Ativan under his tongue he was much more reasonable and able to engage with fiction writer and agreed that perhaps he could be helped; at that time he agreed to KUB, barium swallow and thoracic CT-each intervention was explained to patient.? Patient got the KUB but was worried about the CT and eventually refused CT).? Patient refused an IV fluids for the same reason saying it is not going to help. Patient has a thoracic aneurysm and has not been taking his metoprolol or amlodipine saying he is unable to swallow.? Behavioral Interventionist discussed with patient who understands the need for these medications for his thoracic aneurysm however He refuses IV metoprolol saying it's not going to help...? Nothing is going to help....? You can not fix me.... -patient reported that he did make urine today, that it was brown and bubbly Behavioral Interventionist, Patient and mother and father discussed healthcare proxy and patient was initially ambivalent.? Behavioral Interventionist explained the details of healthcare proxy;? patient asked appropriate questions and expressed he understood and said he trusts his parents and that they are great. Patient signed healthcare proxy designating his mother and than his father as alternate. Discussed case with Hospitalist Dr. Hernandez, Dr. Law (GI) and pattern carrier Dr. Serrano -Barrium swallow on hold to first r/o obstruction (per amrik Law) with KUB -KUB ordered (per Dr. Law): unremarkable -CT chest/angio/aortic ordered with IV contrast to r/o worsening thoracic aneurysm (per dr. Serrano-though considers this unlikely); pt refused -fleet enema ordered: refused 03/20 Patient remains delusional 03/21 Remains delusoinal. He was able to drink some, small amount of fluid; refused IV; again discussed w/ patient consequences of refusal but he maintains that it won't help anyway. 03/22 seems more depressed today and does not respond with anxious lament when approached with questions.? Remains delusional and refuses IV or any kind of medication or treatment.? He seems to agree to continue allowing lab work for monitoring kidney functions. -potassium mildly low today -BUN/creatinine WNL 03/23 patient remains with paranoid delusional thinking regarding his physical health.? He is trying to eat and drink and has been able to keep of food and fluids down.? He continues to refuse medication of any kind, including medications prescribed by pattern carrier to prevent thoracic aneurysm from worsening.? Both patient's parents/healthcare proxy want him to take medications including metoprolol and amlodipine. -lytes: WNL -BUN creatinine: WNL -patient is taking in enough fluid that his kidney function remains intact and at this time patient appears stable without IV fluids 03/24 Patient remains delusional and despondent.? He says he is not good and continues to say I do not know what I am going to do I am just lost. Behavioral Interventionist discussed reasons to try medications to which patient says it makes sense however he follows up with I just do not know......i'm in bad shape... the only thing I know is that there are no solutions..? I am certain about... Behavioral Interventionist later met with patient again while his parents were visiting; patient's parents are urged him to try medications that fiction writer is offering however patient adamantly refuses.? He tried to help fiction writer and family understand by saying I do not want to , I just know there is not a chance.? It is the only thing left that I do know. ? Family discussion about healthcare proxy and involuntary commitment which patient understands. -Lytes: WNL -BUN/creatinine: WNL -Patient making urine -Patient drank about 2 cups of water by miday and drank and orange juice box; also ate a fruit cup and a tangerine -given labs and fluid intake, patient appears stable without IV fluids 03/25/2022 Patient remains anxious despondent to me a appears to be psychotically depressed somatically delusional and on able to take in information or explain his self cyst drug active and potentially life-threatening behavior if he markedly limits food and fluids based on no rational explanation.? Refusing medical workup.? Patient has upcoming court hearing for retention and treatment plan.? Try to develop therapeutic [place] encourage labs every other day monitor food and f luid intake may intermittently need IV fluids If patient remains acute may benefit from ECT treatment which would have a more acute impact potentially 03/29/22 pt Involuntarily committed with substituted judgment for medication.? Behavioral Interventionist discussed this with patient who said nothing is going to help 03/30 patient starting on Zyprexa; unable to believe he can take it p.o. or SL so given IM.? Patient very anxious, does not think anything will help 03/31 Remains delusional; Only Drinking when prompted to do so. Patient agrees there is no chest pain when eating or drinking and that doing so does not make him retch/vomit.? However he continues to assert that he can not drink even when he does so in front of fiction writer.? Creatinine bumped up today.? Still within normal limits; Will check daily 04/01 remains delusional; no insight poor judgment; clearly mentally tortured by paranoid delusion. Needs constant prompting to drink; passively allows oral care. Case discussed with Dr. 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 Symptoms likley formally subdued with alcohol abuse Patient has hx of anxiety started in childhood.? However has functioned in the community with almost no history of psychiatric meds/therapy. No hx of any psychosis or lyn.? For past 2 years, he has worked run in the [employer], drives his car and has functioned successfully.? Starting this summer patient has undergone a series of stressful events (sisters cancer dx; patients own illness) triggering excessive worry and he's been going to the ED for psychosomatic complaints (along with organic ones); he has become unable to function, along worse, does not drive, not attending to ADLs. His parents agree that given patient's baseline anxiety, all these events combined into overwhelming anxiety and and tipped scales for him decompensate leading to this admission.? Patient is not manic; though he has paranoid, somatic delusions, he has no known history of psychotic illness. Pt's MACIEL/Somatic delusional worries (and possibly OCD) about his organic medical illness have become delusional making it difficult to ascertain what is going on and whether there is an organic component to his complaint that he cannot keep down food or water. Patient has no insight that he has delusional thoughts (he had 1 fleeting moment of insight after Ativan lowered anxiety). Although he can understand possible concerns/consequences of refusing treatment (such risks of worsening kidney function,which he does not want and so he eventually consents to getting blood draws to monitor) his paranoid delusional thinking makes him think all treatments are useless, won't help him and that his situation is hopeless. He is unaware the role his anxiety plays in confounding his thinking, insisting nothing will help, even when some of his complaints could be resolved with something as simple as an enema. -while starting to drink minimal amounts of fluid, patient has otherwise either unable or is refusing to drink fluids; he refuses IV for fluids, refuses thoracic CT, refuses barium swallow, refuses Fleet enema, refuses occult stool test; intermittently refuses labs; refuses all medication including IM and SL); thus far he has eventually allowed labwork to monitor for kidney function.? Patient's anxiety is chronic but has reached a psychotic level and patient does not have the capacity to make medical decisions for himself. Patient has a detailed history of seeking treatment for his ailments. However, now he is disorganized; he says he wants to eat and drink, does not want to ...wants to live, does not want to damage his kidneys... however he refuses nearly all?treatments/interventions. -fiction writer has discussed case w/ hospitalist and PA PLAN: Section 8b, involuntarily Civilly committed on 03/29.? q15min checks.? Signed HCP on 03/19/22 -INVOKE HCP: HCP's notified. Patient has paranoid delusions that severely impair his judgment and insight and he is not able to make medical decisions for himself; he is denying treatments that he would normally accept.? Healthcare proxies both informed.? They want patient to get IV fluids, take amlodipine and metoprolol, continue to get lab work and engage in treatment.? Patient refuses fluids, amlodipine, metoprolol or other treatments. -Affirmation of HCP scheduled for 04/08/22;? HCP cannot yet direct tx until affirmed -Healthcare proxies are patient's parents: both want him to have any intervention needed want patient to take Metoprolol/amlodipne for thoracic aneurysm SIGN OUT A.?OCD/MACIEL/paranoid delusion/somatic disorder?(hx severe anxiety since childhood; coped w/ Etoh abuse; sober 1 yr) -Patient is severely anxious and convinced that nothing can be done for him; he has a history of seeking treatment for medical illness and if thinking clearly, would do so now. -He does not want to or harm his body, however he is convinced it Is hopeless.? -INCREASE to Zyprexa Zydis 10mg daily:? COURT ORDERED; IF REFUSES GIVE IM ZYPREXA -discussed risks/benefits of this medication and antipsychotics to both healthcare proxies who asked questions and understand and agree w/ treatment -Patient refuses any psychotropic medications. One limited trial of lexapro maybe seven years ago.? TO DO: may increase dose may consider adding IM ativan 1mg BID/TID to regimen...(a few hours after zyprexa dose) Push for patient to get out of bed walk around B.?Minimal PO intake fluid/food:?most likely psychogenic (KUB negative; refused barium swallow); initially not drinking or eating -with prompting pt has been drinking minimal amounts of fluid daily; eating food, though minimal amounts. -still making urine daily -Bun/Cr and Lytes remain WNL; continue to monitor *as long as he continues to drink fluids, it looks like his kidney function remains stable.? -Ordered oral hygiene care t.i.d. with chlorhexidine mouthwash TO DO:? 1. check bun/cr and lytes daily 2. Ask if making urine daily; monitor for clinical signs of dehydration 3. IF dysfunction arises call hospitalist; if patient needs emergent IV fluids or any treatment and refuses, two doctors need document that patient needs the intervention for life-saving reasons (ex: risking kidneys); HCP not yet affirmed so they cannot yet direct tx 4. PUSH P.O. FLUID INTAKE : Discussed with Nursing who was aware and will continually do so -if patient refuses to drink, continue to evaluate kidney function. May need to consider IV fluids, to avert risk of severe and/or permanent kidney damage. -currently Patient is still making urine and labs reveal kidney function remains WNL -Will continue to assess dehydration however?without fluids patient will at some point risks severe and even permanent kidney damage. -fiction writer has discussed case with both Psychiatric Director Dr. Pérez and several hospitalists (listed throughout) -will continue to monitor labs as pt allows -Monitor for clinical signs of dehydration: Dry mucus membranes; Skin turgor, drop in blood pressure/reflex tachycardia; sunken eyes will monitor BMP will monitor for clinical signs of dehydration will monitor PO intake and if making urine C.?Thoracic aneurysm: consulted with Nurse Practitioner Manager Dr. Pennington and appreciate recommendations above -Patient refusing Metoprolol/amlodipne; both ordered (thinks situation hopeles s): Discussed again with pattern carrier who reports that for the short term, as long as blood pressure is under control -Pt refuses to allow CT to Assess thoracic aneurysm (last assessed Nov 2021 at 4.3cm; however while he initially c/o of ?sudden onset of substernal upper abdominal pain on eating/drinking, this complaint has resolved making this no longer a concern) -blood pressures have mostly remained under control however patient is tachycardic Reason for contiued inpatient stay Substantial Risk for: inability to function Time Spent With Patient Time: Total time managing care of this patient today ____ minutes.
[2022-04-01] MEDS: Chlorhexidine Gluc Oral Rinse 15 ML MOUTHWASH BUCCAL ×2 (11:32→15:11)
[2022-04-01] MEDS: OLANZapine 10 MG VIAL IM (11:32)
[2022-04-01 12:21] VITALS: BP 114/92; PULSE 144; RESP 16; TEMP 36.8; O2SAT 96
[2022-04-01 13:55] LABS: COVID-19 Test Negative (Negative); IDNOW Serial# 9DB6401D
--- NOTE | 2022-04-01 14:59 | PC.NURSE ---
pt received oral care w/ chlorihexidine mouth wash, oral swab, and wet wash cloth with little effect
--- NOTE | 2022-04-01 15:00 | PC.NURSE ---
pt encouraged to ambulate but adamantly declined
[2022-04-01] MEDS: LORazepam 1 MG TABLET 2 MG PO (15:07)
[2022-04-01 17:00] VITALS: BP 114/87; PULSE 146; RESP 16; TEMP 36.9; O2SAT 98
[2022-04-01] MEDS: LORazepam 1 MG TABLET PO (21:48)
[2022-04-01 22:00] VITALS: BP 116/78; PULSE 115; RESP 18; TEMP 36.1; O2SAT 98
[2022-04-02 09:00] VITALS: BP 110/78; PULSE 115; TEMP 36.1
[2022-04-02] MEDS: Metoprolol Succinate ER 25 MG TAB.ER.24H PO (09:06)
[2022-04-02] MEDS: LORazepam 1 MG TABLET PO ×3 (09:06→21:46)
[2022-04-02] MEDS: OLANZapine ODT 10 MG TAB.RAPDIS TRANSLINGU (09:06)
[2022-04-02] MEDS: amLODIPine Besylate 5 MG TABLET PO (09:07)
[2022-04-02 15:12] LABS: Anion Gap 15 (12-20); Blood Urea Nitrogen 25 mg/dL (9-16); Calcium 9.2 mg/dL (8.4-10.2); Carbon Dioxide 21 mmol/L (22-29); Chloride 110 mmol/L (96-108); Creatinine Clr Calc Pharmacy 84.8; Estimated Glomerular Filt Rate > 60; Glucose Random 102 mg/dL (60-115); Potassium 3.5 mmol/L (3.3-5.1); Sodium 142 mmol/L (135-145)
[2022-04-02 18:00] VITALS: BP 107/72; PULSE 123; RESP 20; TEMP 36.6; O2SAT 98
--- NOTE | 2022-04-02 18:54 | P.PNPSI_ITS ---
Subjective Subjective Date of Service: 04/02/22 Reason For Visit: psychosis, delusions of persecution, SI Interim History: Na 142, K 3.5, Cl 110, CO2 21, BUN 25, ECRCL84.8, Ca 9.2 Accepted PO Olanzapine Team is pushing intake of food and fluids Parents visited. Met with pt and mother briefly-pt anxious, negative, hopeless. Attempts to encourage. Met with parents, responded to all of their questions. Will meet with them daily per their request. Medication Compliance: Yes Side effects from medications: No Attending Groups: No Review of Systems Acute medical concerns: Yes Daily monitoring Medical Review of Systems: unchanged Mental Status Exam Mental Status Exam Patient Appearance: Disheveled Patient Orientation: Person and Place Level of Consciousness: Alert Patient Behavior: Guarded, Suspicious, Anxious, Fearful, Resistive to Care and Good Eye Contact Mood Description: Withdrawn and Depressed Affect Description: Suspicious, Withdrawn and Flat Patient Cognition Impaired: Yes Ability to Follow Directions: Fair Speech Pattern: Spontaneous Speech and Soft-Spoken Memory Description: Remote Impaired and Episodic Impaired Hallucinations: None Delusions: Paranoid Ideation Thought Process: Illogical, Distracted and Rumination Thought Content: positive for Suicidal Ideation (denies) Depressive Symptoms: Significant Weight Loss, Loss of Int. in Activity, Feelings of Worthlessness, Hopelessness, Isolating-Friends/Family, Unhappiness, Increased Fatigue and Low Self Esteem Judgement: Poor Diagnostics Vital Signs (24Hr): Vital Signs - 24 hr 04/01/22 22:00 04/02/22 09:00 04/02/22 18:00 Temperature 96.9 F 96.9 F 98 F Pulse Rate 115 H 115 H 123 H Respiratory Rate 18 20 Blood Pressure 116/78 110/78 107/72 Pulse Oximetry 98 98 Oxygen Delivery Method Room Air Room Air BMI result Body Mass Index 37.8 Labs Results: 03/17/22 14:30 04/02/22 14:46 Labs: Laboratory Results - last 48 hr 04/01/22 04/01/22 04/02/22 08:04 13:25 08:17 Sodium 147 H Potassium 3.6 Chloride 111 H Carbon Dioxide 21 L Anion Gap 19 BUN 31 H Creatinine 1.11 Estim Creat Clear Calc 78.7 Estimated GFR > 60 Random Glucose 88 Calcium 9.5 Total Creatine Kinase 40 COVID-19 ([facility]) Negative COVID-19 Clin Com See Note 04/02/22 14:46 Sodium 142 Potassium 3.5 Chloride 110 H Carbon Dioxide 21 L Anion Gap 15 BUN 25 H Creatinine 1.03 Estim Creat Clear Calc 84.8 Estimated GFR > 60 Random Glucose 102 Calcium 9.2 Total Creatine Kinase COVID-19 ([facility]) COVID-19 Clin Com Imaging Radiology Impressions: ITS Impressions KUB X-Ray 03/18/22 16:35 IMPRESSION: Unremarkable examination. Medications Medications Current Medications Acetaminophen (Acetaminophen 325 Mg Tablet) 650 mg PO Q6H PRN PRN Reason: Headache/Pain Mild Scale (1-3) Al Hydroxide/Mg Hydroxide (Magnesium Hydrox/Alum Hydrox 30 Ml Oral.Susp) 30 ml PO Q6H PRN PRN Reason: Heartburn/Nausea Amlodipine Besylate (Amlodipine Besylate 5 Mg Tablet) 5 mg PO DAILY [facility]; Protocol Last Admin: 04/02/22 09:07 Dose: 5 mg Chlorhexidine Gluconate (Chlorhexidine Gluc Oral Rinse 15 Ml Mouthwash) 15 ml BUCCAL TID [facility] Last Admin: 04/02/22 16:23 Dose: Not Given Lorazepam (Lorazepam 1 Mg Tablet) 1 mg PO Q4H PRN PRN Reason: Anxiety Lorazepam (Lorazepam 2 Mg/Ml Vial) 2 mg IM ONCE PRN PRN Reason: if refuses PO Lorazepam (Lorazepam 1 Mg Tablet) 1 mg PO TID [facility] Last Admin: 04/02/22 14:53 Dose: 1 mg Lorazepam (Lorazepam 2 Mg/Ml Vial) 1 mg IM TID PRN PRN Reason: If refuses PO Magnesium Hydroxide (Milk Of Magnesia 30 Ml Oral.Susp) 30 ml PO DAILY PRN PRN Reason: Constipation Metoprolol Succinate (Metoprolol Succinate Er 25 Mg Tab.Er.24h) 25 mg PO DAILY [facility]; Protocol Last Admin: 04/02/22 09:06 Dose: 25 mg Olanzapine (Olanzapine 10 Mg Vial) 10 mg IM DAILY PRN PRN Reason: if refuses PO Last Admin: 04/01/22 11:32 Dose: 10 mg Olanzapine (Olanzapine Odt 10 Mg Tab.Rapdis) 10 mg TRANSLINGU DAILY [facility] Last Admin: 04/02/22 09:06 Dose: 10 mg Polyethylene Glycol (Polyethylene Glycol 3350 17 Gm Powd.Pack) 17 gm PO DAILY PRN PRN Reason: constipation Sodium Biphosphate/Sodium Phosphate (Sodium Phosphate,Cross-Dibasic 133 Ml Enema) 133 ml [place] ONCE PRN PRN Reason: Constipation Trazodone HCl (Trazodone Hcl 50 Mg Tablet) 50 mg PO BEDTIME PRN PRN Reason: Insomnia Allergies Allergies Allergy/AdvReac Type Severity Reaction Status Date / Time No Known Allergies Allergy Verified 03/17/22 16:59 Assessment & Plan Assessment & Plan (1) Thoracic aortic aneurysm: Status: Acute Code(s): I71.20 - Thoracic aortic aneurysm, without rupture, unspecified Assessment and Plan: Known chronic thoracic aortic aneurysm without any acute symptoms. This is a chronic condition and there is no acute due to this lesion. It needs to be treated in the long run with medications such as metoprolol and other antihypertensive is a blood pressure remains elevated on metoprolol therapy to reduce she was stressed on the aorta. However is not having any acute symptoms at this point in time. Risk of rupture is very low in mild thoracic aortic aneurysm. His refusal of taking medication appears to be due to lack of understanding as well as his psychiatric condition that prevents him from processing the information. I would concentrate on treating his psychiatric condition so as to then eventually able to understand the need for taking medications. In the long run he will need to be followed as an outpatient by her retreader that he was following before. If he has intermittent hypertensive episode which again seems to be driven by acute anxiety, would consider treating the anxiety disorder. Can use metoprolol intramuscularly if needed for acute hypertension. Although patient is currently refusing taking his medication and focus should be try to make him understand to take his medica tions. There is no relation should between thoracic aortic aneurysm and QT prolongation. Use of psychoactive medication as needed can be used and I do not see any clear contraindication, his EKG done on admission shows normal QTC interval. Usual precautions for QT prolongation with avoidance of other QT prolonging drugs and maintaining electrolytes especially magnesium and potassium in normal range. Also can check QTC interval after initiating psychoactive medications at a known to prolong QT interval. Will follow up if need be. Plan HPI: pt is a 46 yo male with long hx of anxiety, thoracic aneurysm (dx Nov 2021) who presents for severe anxiety in face of difficulty eating/drinking since this past monday. Pt is accompanied by his mother.? -Pt reports that this past monday he stopped being able to eat or drink since i t caused pain (pointing to area just below his xiphoid process) and wretching. -hx of severe anxiety -but no hx of psychosis; no hx lyn Patient's parents review timeline events leading up to this admission: Prior to this summer, patient was overall doing fine, worked, drove his car and for the past 2 years had no obvious problems.? Parents agree that patient is drinking likely kept his anxiety down to some degree -September:? sister got diagnosed with melanoma very upsetting for patient -September:? patient had painless hematuria, cystoscopy did have a finding but it was benign -November:? About 4 years ago patient was diagnosed with thoracic aneurysm however he has not followed up.? This past summer he was going to the emergency room multiple times for various problems and eventually agreed to thoracic CT which showed that aneurysm had increased to 4.3 mg -December:? Patient had a severely ingrown toenail which required surgical extraction -January: Patient diagnosed with macular degeneration is right eye -over these months patient has been eating less and less, saying that he had little appetite, did not like the smell of meat and has lost 20 or more lb -March: on Monday patient had bloody stool; 1st bowel movement in a week On Monday patient suddenly had chest pain and subsequent retching after drinking any fluid or eating anything On 02:30 patient went to [facility] ED, blood labs were drawn but no imaging or or labs; no fluid; long wait prompted patient to return home but he then came to [facility] where he got IV fluid HOSPITAL COURSE: .03/19 meeting w/ parents; pt anxious, lamenting that nothing can be done for him, just let him go...asking his parents to just leave him somewhere...Small Appliance Assembly Supervisor asked where the side of the road? and he says yes. He denies any SI and laments i want to drink i want to eat...i just can't...i can't explain it.. but goes on to repeat that nothing can be done for him.? Patient refuses to believe that personal lines underwriter has seeing other patients who could not eat or drink, saying that this is a unique situation.? [employer] Supervisor and parents together tried to encourage patient to take another Ativan under his tongue, which helped yesterday however he refused and kept saying it will not help... there is no point (after patient took Ativan under his tongue he was much more reasonable and able to engage with personal lines underwriter and agreed that perhaps he could be helped; at that time he agreed to KUB, barium swallow and thoracic CT-each intervention was explained to patient.? Patient got the KUB but was worried about the CT and eventually refused CT).? Patient refused an IV fluids for the same reason saying it is not going to help. Patient has a thoracic aneurysm and has not been taking his metoprolol or amlodipine saying he is unable to swallow.? [employer]liance Assembly Supervisor discussed with patient who understands the need for these medications for his thoracic aneurysm however He refuses IV metoprolol saying it's not going to help...? Nothing is going to help....? You can not fix me.... -patient reported that he did make urine today, that it was brown and bubbly [employer] Appliance Assembly Supervisor, Patient and mother and father discussed healthcare proxy and patient was initially ambivalent.? [employer] Supervisor explained the details of healthcare proxy;? patient asked appropriate questions and expressed he understood and said he trusts his parents and that they are great. Patient signed healthcare proxy designating his mother and than his father as alternate. Discussed case with Hospitalist Dr. Hernandez, Dr. Law (GI) and retreader [facility] to first r/o obstruction (per amrik Law) with KUB -KUB ordered (per Dr. Law): unremarkable -CT chest/angio/aortic ordered with IV contrast to r/o worsening thoracic aneurysm (per dr. Serrano-though considers this unlikely); pt refused -fleet enema ordered: refused 03/20 Patient remains delusional 03/21 Remains delusoinal. He was able to drink some, small amount of fluid; refused IV; again discussed w/ patient consequences of refusal but he maintains that it won't help anyway. 03/22 seems more depressed today and does not respond with anxious lament when approached with questions.? Remains delusional and refuses IV or any kind of medication or treatment.? He seems to agree to continue allowing lab work for monitoring kidney functions. -potassium mildly low today -BUN/creatinine WNL 03/23 patient remains with paranoid delusional thinking regarding his physical health.? He is trying to eat and drink and has been able to keep of food and fluids down.? He continues to refuse medication of any kind, including medications prescribed by retreader to prevent thoracic aneurysm from worsening.? Both patient's parents/healthcare proxy want him to take medications including metoprolol and amlodipine. -lytes: WNL -BUN creatinine: WNL -patient is taking in enough fluid that his kidney function remains intact and at this time patient appears stable without IV fluids 03/24 Patient remains delusional and despondent.? He says he is not good and continues to say I do not know what I am going to do I am just lost. Small Appliance [employer] Supervisor discussed reasons to try medications to which patient says it makes sense however he follows up with I just do not know......i'm in bad shape... the only thing I know is that there are no solutions..? I am certain about... Small Appliance Assembly Supervisor later met with patient again while his parents were visiting; patient's parents are urged him to try medications that personal lines underwriter is offering however patient adamantly refuses.? He tried to help personal lines underwriter and family understand by saying I do not want to , I just know there is not a chance.? It is the only thing lef t that I do know. ? Family discussion about healthcare proxy and involuntary commitment which patient understands. -Lytes: WNL -BUN/creatinine: WNL -Patient making urine -Patient drank about 2 cups of water by miday and drank and orange juice box; also ate a fruit cup and a tangerine -given labs and fluid intake, patient appears stable without IV fluids 03/25/2022 Patient remains anxious despondent to me a appears to be psychotically depressed somatically delusional and on able to take in information or explain his self cyst drug active and potentially life-threatening behavior if he markedly limits food and fluids based on no rational explanation.? Refusing medical workup.? Patient has upcoming court hearing for retention and treatment plan.? Try to develop therapeutic [place] encourage labs every other day monitor food and fluid intake may intermittently need IV fluids If patient remains acute may benefit from ECT treatment which would have a more acute impact potentially 03/29/22 pt Involuntarily committed with substituted judgment for medication.? [employer] Supervisor discussed this with patient who said nothing is going to help 03/30 patient starting on Zyprexa; unable to believe he can take it p.o. or SL so given IM.? Patient very anxious, does not think anything will help 03/31 Remains delusional; Only Drinking when prompted to do so. Patient agrees there is no chest pain when eating or drinking and that doing so does not make him retch/vomit.? However he continues to assert that he can not drink even when he does so in front of personal lines underwriter.? Creatinine bumped up today.? Still within normal limits; Will check daily 04/01 remains delusional; no insight poor judgment; clearly mentally tortured by paranoid delusion. Needs constant prompting to drink; passively allows oral care. Case discussed with Dr. Pérez who agrees with current treatment plan -tachycardic; kidney function still within normal limits; mildly hypernatremic, likely from dehydration; will order CPK for tomorrow although no BRETT 04/02/22 remains with delusional sx. accepted PO meds today. Team is strongly encouraging food and fluids. Responds to consistent encouragement. Met with pt and mother, then parents after their visit. 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 Symptoms likley formally subdued with alcohol abuse Patient has hx of anxiety started in childhood.? However has functioned in the community with almost no history of psychiatric meds/therapy. No hx of any psychosis or lyn.? 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 Starting this summer patient has undergone a series of stressful events (sisters cancer dx; patients own illness) triggering excessive worry and he's been going to the ED for psychos omatic complaints (along with organic ones); he has become unable to function, along worse, does not drive, not attending to ADLs. His parents agree that given patient's baseline anxiety, all these events combined into overwhelming anxiety and and tipped scales for him decompensate leading to this admission.? Patient is not manic; though he has paranoid, somatic delusions, he has no known history of psychotic illness. Pt's MACIEL/Somatic delusional worries (and possibly OCD) about his organic medical illness have become delusional making it difficult to ascertain what is going on and whether there is an organic component to his complaint that he cannot keep down food or water. Patient has no insight that he has delusional thoughts (he had 1 fleeting moment of insight after Ativan lowered anxiety). Although he can understand possible concerns/consequences of refusing treatment (such risks of worsening kidney function,which he does not want and so he eventually consents to getting blood draws to monitor) his paranoid delusional thinking makes him think all treatments are useless, won't help him and that his situation is hopeless. He is unaware the role his anxiety plays in confounding his thinking, insisting nothing will help, even when some of his complaints could be resolved with something as simple as an enema. -while starting to drink minimal amounts of fluid, patient has otherwise either unable or is refusing to drink fluids; he refuses IV for fluids, refuses thoracic CT, refuses barium swallow, refuses Fleet enema, refuses occult stool test; intermittently refuses labs; refuses all medication including IM and SL); thus far he has eventually allowed labwork to monitor for kidney function.? Patient's anxiety is chronic but has reached a psychotic level and patient does not have the capacity to make medical decisions for himself. Patient has a detailed history of seeking treatment for his ailments. However, now he is disorganized; he says he wants to eat and drink, does not want to ...wants to live, does not want to damage his kidneys... however he refuses nearly all?treatments/interventions. -personal lines underwriter has discussed case w/ hospitalist and PA PLAN: Section 8b, involuntarily Civilly committed on 03/29.? q15min checks.? Signed HCP on 03/19/22 -INVOKE HCP: HCP's notified. Patient has paranoid delusions that severely impair his judgment and insight and he is not able to make medical decisions for himself; he is denying treatments that he would normally accept.? Healthcare proxies both informed.? They want patient to get IV fluids, take amlodipine and metoprolol, continue to get lab work and engage in treatment.? Patient refuses fluids, amlodipine, metoprolol or other treatments. -Affirmation of HCP scheduled for 04/08/22;? HCP cannot yet direct tx until affirmed -Healthcare proxies are patient's parents: both want him to have any intervention needed want patient to take Metoprolol/amlodipne for thoracic aneurysm SIGN OUT A.?OCD/MACIEL/paranoid delusion/somatic disorder?(hx severe anxiety since childhood; coped w/ Etoh abuse; sober 1 yr) -Patient is severely anxious and convinced that nothing can be done for him; he has a history of seeking treatment for medical illness and if thinking clearly, would do so now. -He does not want to or harm his body, however he is convinced it Is hopeless.? -INCREASE to Zyprexa Zydis 10mg daily:? COURT ORDERED; IF REFUSES GIVE IM ZYPREXA -discussed risks/benefits of this medication and antipsychotics to both healthcare proxies who asked questions and understand and agree w/ treatment -Patient refuses any psychotropic medications. One limited trial of lexapro maybe seven years ago.? TO DO: may increase dose may consider adding IM ativan 1mg BID/TID to regimen...(a few hours after zyprexa dose) Push for patient to get out of bed walk around B.?Minimal PO intake fluid/food:?most likely psychogenic (KUB negative; refused barium swallow); initially not drinking or eating -with prompting pt has been drinking minimal amounts of fluid daily; eating food, though minimal amounts. -still making urine daily -Bun/Cr and Lytes remain WNL; continue to monitor *as long as he continues to drink fluids, it looks like his kidney function remains stable.? -Ordered oral hygiene care t.i.d. with chlorhexidine mouthwash TO DO:? 1. check bun/cr and lytes daily 2. Ask if making urine daily; monitor for clinical signs of dehydration 3. IF dysfunction arises call hospitalist; if patient needs emergent IV fluids or any treatment and refuses, two doctors need document that patient needs the intervention for life-saving reasons (ex: risking kidneys); HCP not yet affirmed so they cannot yet direct tx 4. PUSH P.O. FLUID INTAKE : Discussed with Nursing who was aware and will continually do so -if patient refuses to drink, continue to evaluate kidney function. May need to consider IV fluids, to avert risk of severe and/or permanent kidney damage. -currently Patient is still making urine and labs reveal kidney function remains WNL -Will continue to assess dehydration however?without fluids patient will at some point risks severe and even permanent kidney damage. -personal lines underwriter has discussed case with both Psychiatric Director Dr. Pérez and several hospitalists (listed throughout) -will continue to monitor labs as pt allows -Monitor for clinical signs of dehydration: Dry mucus membranes; Skin turgor, drop in blood pressure/reflex tachycardia; sunken eyes will monitor BMP will monitor for clinical signs of dehydration will monitor PO intake and if making urine C.?Thoracic aneurysm: consulted with Social Services Director Dr. Pennington and appreciate recommendations above -Patient refusing Metoprolol/amlodipne; both ordered (thinks situation hopeless): Discussed again with retreader who reports that for the short term, as long as blood pressure is under control -Pt refuses to allow CT to Assess thoracic aneurysm (last assessed Nov 2021 at 4.3cm; however while he initially c/o of ?sudden onset of substernal upper abdominal pain on eating/drinking, this complaint has resolved making this no longer a concern) -blood pressures have mostly remained under control however patient is tachycardic Informed Consent: does not understand Reason for contiued inpatient stay Substantial Risk for: rapid decompensation and med/psych decompensation Time Spent With Patient Time: Total time managing care of this patient today _60___ minutes.
[2022-04-03 07:02] LABS: Anion Gap 13 (12-20); Blood Urea Nitrogen 24 mg/dL (9-16); Calcium 9.2 mg/dL (8.4-10.2); Carbon Dioxide 23 mmol/L (22-29); Chloride 108 mmol/L (96-108); Estimated Glomerular Filt Rate > 60; Glucose Random 89 mg/dL (60-115); Potassium 3.3 mmol/L (3.3-5.1); Sodium 141 mmol/L (135-145)
[2022-04-03 08:03] VITALS: BP 95/54; PULSE 100; RESP 16; TEMP 37.1; O2SAT 96
[2022-04-03] MEDS: OLANZapine ODT 10 MG TAB.RAPDIS TRANSLINGU (08:41)
[2022-04-03] MEDS: amLODIPine Besylate 5 MG TABLET PO (08:41)
[2022-04-03] MEDS: LORazepam 1 MG TABLET PO ×3 (08:41→21:28)
[2022-04-03 10:14] LABS: COVID-19 Test Negative (Negative); IDNOW Serial# 55D5AD1C
[2022-04-03 12:00] VITALS: BP 102/76; PULSE 16; RESP 16; TEMP 36.8; O2SAT 96
--- NOTE | 2022-04-03 15:14 | HO.PSYCHPN ---
Subjective Subjective Date of Service: 04/03/22 Reason For Visit: psychosis, delusions of persecution, SI Interim History: Electrolytes WNL. BUN 24 TCK 27. BP 94/54, 102/76, 138/78 P 104, 100, 123 Mother asks to stop cardiac meds, get cardiac eval for hypotension. Review with Dr. Vanessa-will hold on those requests now. Justice is alert, oriented, pessimistic. I am taking the medicine, but I don't feel a change. Encouraged to allow time for things to work. Meeting with parents to address questions and concerns. Both are very worried. Education attempted. Medication Compliance: Yes Side effects from medications: No Attending Groups: No Review of Systems Acute medical concerns: No Medical Review of Systems: unchanged Mental Status Exam Mental Status Exam Patient Appearance: Unkempt Patient Orientation: Person and Place Level of Consciousness: Alert Patient Behavior: Talkative, Cooperative, Suspicious, Resistive to Care, Distractible and Good Eye Contact Mood Description: Withdrawn, Depressed, Anxious and Apprehensive Affect Description: Flat Patient Cognition Impaired: No Ability to Follow Directions: Fair Speech Pattern: Spontaneous Speech Memory Description: Episodic Impaired Hallucinations: None Delusions: Paranoid Ideation Perceptual Disturbances: Depersonalization and Derealization Thought Process: Illogical Thought Content: positive for Obsessional Thoughts, positive for Perseveration and positive for Thought Blocking Depressive Symptoms: Changes in Appetite, Significant Weight Loss, Loss of Int. in Activity, Feelings of Worthlessness, Hopelessness, Unhappiness, Increased Fatigue, Loss of Energy and Difficulty Concentrating Judgement: Poor Diagnostics Vital Signs (24Hr): Vital Signs - 24 hr 04/02/22 18:00 04/03/22 08:03 04/03/22 12:00 Temperature 98 F 98.7 F 98.2 F Pulse Rate 123 H 100 16 L Respiratory Rate 20 16 16 Blood Pressure 107/72 95/54 L 102/76 Pulse Oximetry 98 96 96 Oxygen Delivery Method Room Air Room Air Room Air BMI result Body Mass Index 37.8 Labs Results: 03/17/22 14:30 04/03/22 06:38 Labs: Laboratory Results - last 48 hr 04/02/22 04/02/22 04/03/22 08:17 14:46 06:38 Sodium 142 141 Potassium 3.5 3.3 Chloride 110 H 108 Carbon Dioxide 21 L 23 Anion Gap 15 13 BUN 25 H 24 H Creatinine 1.03 0.95 Estim Creat Clear Calc 84.8 92.0 Estimated GFR > 60 > 60 Random Glucose 102 89 Calcium 9.2 9.2 Total Creatine Kinase 40 27 L COVID-19 ([facility]) COVID-19 Clin Com 04/03/22 09:46 Sodium Potassium Chloride Carbon Dioxide Anion Gap BUN Creatinine Estim Creat Clear Calc Estimated GFR Random Glucose Calcium Total Creatine Kinase COVID-19 ([facility]) Negative COVID-19 Clin Com See Note Imaging Radiology Impressions: ITS Impressions KUB X-Ray 03/18/22 16:35 IMPRESSION: Unremarkable examination. Medications Medications Current Medications Acetaminophen (Acetaminophen 325 Mg Tablet) 650 mg PO Q6H PRN PRN Reason: Headache/Pain Mild Scale (1-3) Al Hydroxide/Mg Hydroxide (Magnesium Hydrox/Alum Hydrox 30 Ml Oral.Susp) 30 ml PO Q6H PRN PRN Reason: Heartburn/Nausea Amlodipine Besylate (Amlodipine Besylate 5 Mg Tablet) 5 mg PO DAILY [facility]; Protocol Last Admin: 04/03/22 08:41 Dose: 5 mg Chlorhexidine Gluconate (Chlorhexidine Gluc Oral Rinse 15 Ml Mouthwash) 15 ml BUCCAL TID [facility] Last Admin: 04/03/22 14:47 Dose: Not Given Lorazepam (Lorazepam 1 Mg Tablet) 1 mg PO Q4H PRN PRN Reason: Anxiety Lorazepam (Lorazepam 1 Mg Tablet) 1 mg PO TID [facility] Last Admin: 04/03/22 14:46 Dose: 1 mg Lorazepam (Lorazepam 2 Mg/Ml Vial) 1 mg IM TID PRN PRN Reason: If refuses PO Magnesium Hydroxide (Milk Of Magnesia 30 Ml Oral.Susp) 30 ml PO DAILY PRN PRN Reason: Constipation Metoprolol Succinate (Metoprolol Succinate Er 25 Mg Tab.Er.24h) 25 mg PO DAILY [facility]; Protocol Last Admin: 04/03/22 08:42 Dose: Not Given Olanzapine (Olanzapine 10 Mg Vial) 10 mg IM DAILY PRN PRN Reason: if refuses PO Last Admin: 04/01/22 11:32 Dose: 10 mg Olanzapine (Olanzapine Odt 10 Mg Tab.Rapdis) 10 mg TRANSLINGU DAILY [facility] Last Admin: 04/03/22 08:41 Dose: 10 mg Polyethylene Glycol (Polyethylene Glycol 3350 17 Gm Powd.Pack) 17 gm PO DAILY PRN PRN Reason: constipation Sodium Biphosphate/Sodium Phosphate (Sodium Phosphate,[place]-Dibasic 133 Ml Enema) 133 ml ID ONCE PRN PRN Reason: Constipation Trazodone HCl (Trazodone Hcl 50 Mg Tablet) 50 mg PO BEDTIME PRN PRN Reason: Insomnia Allergies Allergies Allergy/AdvReac Type Severity Reaction Status Date / Time No Known Allergies Allergy Verified 03/17/22 16:59 Assessment & Plan Assessment & Plan (1) Thoracic aortic aneurysm: Status: Acute Code(s): I71.20 - Thoracic aortic aneurysm, without rupture, unspecified Assessment and Plan: Known chronic thoracic aortic aneurysm without any acute symptoms. This is a chronic condition and there is no acute due to this lesion. It needs to be treated in the long run with medications such as metoprolol and other antihypertensive is a blood pressure remains elevated on metoprolol therapy to reduce she was stressed on the aorta. However is not having any acute symptoms at this point in time. Risk of rupture is very low in mild thoracic aortic aneurysm. His refusal of taking medication appears to be due to lack of understanding as well as his psychiatric condition that prevents him from processing the information. I would concentrate on treating his psychiatric condition so as to then eventually able to understand the need for taking medications. In the long run he will need to be followed as an outpatient by her sand slinger that he was following before. If he has intermittent hypertensive episode which again seems to be driven by acute anxiety, would consider treating the anxiety disorder. Can use metoprolol intramuscularly if needed for acute hypertension. Although patient is currently refusing taking his medication and focus should be try to make him understand to take his medications. There is no relation should between thoracic aortic aneurysm and QT prolongation. Use of psychoactive medication as needed can be used and I do not see any clear contraindication, his EKG done on admission shows normal QTC interval. Usual precautions for QT prolongation with avoidance of other QT prolonging drugs and maintaining electrolytes especially magnesium and potassium in normal range. Also can check QTC interval after initiating psychoactive medications at a known to prolong QT interval. Will follow up if need be. Plan HPI: pt is a 46 yo male with long hx of anxiety, thoracic aneurysm (dx Nov 2021) who presents for severe anxiety in face of difficulty eating/drinking since this past monday. Pt is accompanied by his mother.? -Pt reports that this past monday he stopped being able to eat or drink since it caused pain (pointing to area just below his xiphoid process) and wretching. -hx of severe anxiety -but no hx of psychosis; no hx lyn Patient's parents review timeline events leading up to this admission: Prior to this summer, patient was overall doing fine, worked, drove his car and for the past 2 years had no obvious problems.? Parents agree that patient is drinking likely kept his anxiety down to some degree -September:? sister got diagnosed with melanoma very upsetting for patient -September:? patient had painless hematuria, cystoscopy did have a finding but it was benign -November:? About 4 years ago patient was diagnosed with thoracic aneurysm however he has not followed up.? This past summer he was going to the emergency room multiple times for various problems and eventually agreed to thoracic CT which showed that aneurysm had increased to 4.3 mg -December:? Patient had a severely ingrown toenail which required surgical extraction -January: Patient diagnosed with macular degeneration is right eye -over these months patient has been eating less and less, saying that he had little appetite, did not like the smell of meat and has lost 20 or more lb -March: on Monday patient had bloody stool; 1st bowel movement in a week On Monday patient suddenly had chest pain and subsequent retching after drinking any fluid or eating anything On 02:30 patient went to [facility] ED, blood labs were drawn but no imaging or or labs; no fluid; long wait prompted patient to return home but he then came to [place] ED where he got IV fluid HOSPITAL COURSE: .03/19 meeting w/ parents; pt anxious, lamenting that nothing can be done for him, just let him go...asking his parents to just leave him somewhere...Optimization Engineer asked where the side of the road? and he says yes. He denies any SI and laments i want to drink i want to eat...i just can't...i can't explain it.. but goes on to repeat that nothing can be done for him.? Patient refuses to believe that telegraphic typewriter repairer has seeing other patients who could not eat or drink, saying that this is a unique situation.? Optimization Engineer and parents together tried to encourage patient to take another Ativan under his tongue, which helped yesterday however he refused and kept saying it will not help... there is no point (after patient took Ativan under his tongue he was much more reasonable and able to engage with telegraphic typewriter repairer and agreed that perhaps he could be helped; at that time he agreed to KUB, barium swallow and thoracic CT-each intervention was explained to patient.? Patient got the KUB but was worried about the CT and eventually refused CT).? Patient refused an IV fluids for the same reason saying it is not going to help. Patient has a thoracic aneurysm and has not been taking his metoprolol or amlodipine saying he is unable to swallow.? Optimization Engineer discussed with patient who understands the need for these medications for his thoracic aneurysm however He refuses IV metoprolol saying it's not going to help...? Nothing is going to help....? You can not fix me.... -patient reported that he did make urine today, that it was brown and bubbly Optimization Engineer, Patient and mother and father discussed healthcare proxy and patient was initially ambivalent.? Optimization Engineer explained the details of healthcare proxy;? patient asked appropriate questions and expressed he understood and said he trusts his parents and that they are great. Patient signed healthcare proxy designating his mother and than his father as alternate. Discussed case with Hospitalist Dr. Hernandez, Dr. Law (GI) and sand slinger Dr. Serrano -[facility] swallow on hold to first r/o obstruction (per amrik Law) with KUB -KUB ordered (per Dr. Law): unremarkable -CT chest/angio/aortic ordered with IV contrast to r/o worsening thoracic aneurysm (per dr. Serrano-though considers this unlikely); pt refused -fleet enema ordered: refused 03/20 Patient remains delusional 03/21 Remains delusoinal. He was able to drink some, small amount of fluid; refused IV; again discussed w/ patient consequences of refusal but he maintains that it won't help anyway. 03/22 seems more depressed today and does not respond with anxious lament when approached with questions.? Remains delusional and refuses IV or any kind of medication or treatment.? He seems to agree to continue allowing lab work for monitoring kidney functions. -potassium mildly low today -BUN/creatinine WNL 03/23 patient remains with paranoid delusional thinking regarding his physical health.? He is trying to eat and drink and has been able to keep of food and fluids down.? He continues to refuse medication of any kind, including medications prescribed by sand slinger to prevent thoracic aneurysm from worsening.? Both patient's parents/healthcare proxy want him to take medications including metoprolol and amlodipine. -lytes: WNL -BUN creatinine: WNL -patient is taking in enough fluid that his kidney function remains intact and at this time patient appears stable without IV fluids 03/24 Patient remains delusional and despondent.? He says he is not good and continues to say I do not know what I am going to do I am just lost. Optimization Engineer discussed reasons to try medications to which patient says it makes sense however he follows up with I just do not know......i'm in bad shape... the only thing I know is that there are no solutions..? I am certain about... Optimization Engineer later met with patient again while his parents were visiting; patient's parents are urged him to try medications that telegraphic typewriter repairer is offering however patient adamantly refuses.? He tried to help telegraphic typewriter repairer and family understand by saying I do not want to , I just know there is not a chance.? It is the only thing left that I do know. ? Family discussion about healthcare proxy and involuntary commitment which patient understands. -Lytes: WNL -BUN/creatinine: WNL -Patient making urine -Patient drank about 2 cups of water by miday and drank and orange juice box; also ate a fruit cup and a tangerine -given labs and fluid intake, patient appears stable without IV fluids 03/25/2022 Patient remains anxious despondent to me a appears to be psychotically depressed somatically delusional and on able to take in information or explain his self cyst drug active and potentially life-threatening behavior if he markedly limits food and fluids based on no rational explanation.? Refusing medical workup.? Patient has upcoming court hearing for retention and treatment plan.? Try to develop therapeutic Marana encourage labs every other day monitor food and fluid intake may intermittently need IV fluids If patient remains acute may benefit from ECT treatment which would have a more acute impact potentially 03/29/22 pt Involuntarily committed with substituted judgment for medication.? Optimization Engineer discussed this with patient who said nothing is going to help 03/30 patient starting on Zyprexa; unable to believe he can take it p.o. or SL so given IM.? Patient very anxious, does not think anything will help 03/31 Remains delusional; Only Drinking when prompted to do so. Patient agrees there is no chest pain when eating or drinking and that doing so does not make him retch/vomit.? However he continues to assert that he can not drink even when he does so in front of telegraphic typewriter repairer.? Creatinine bumped up today.? Still within normal limits; Will check daily 04/01 remains delusional; no insight poor judgment; clearly mentally tortured by paranoid delusion. Needs constant prompting to drink; passively allows oral care. Case discussed with Dr. Pérez who agrees with current treatment plan -tachycardic; kidney function still within normal limits; mildly hypernatremic, likely from dehydration; will order CPK for tomorrow although no BRETT 04/02/22 remains with delusional sx. accepted PO meds today. Team is strongly encouraging food and fluids. Responds to consistent encouragement. Met with pt and mother, then parents after their visit. 04/03/22: Continue current plan. 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 Symptoms likley formally subdued with alcohol abuse Patient has hx of anxiety started in childhood.? However has functioned in the community with almost no history of psychiatric meds/therapy. No hx of any psychosis or lyn.? 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 Starting this summer patient has undergone a series of stressful events (sisters cancer dx; patients own illness) triggering excessive worry and he's been going to the ED for psychosomatic complaints (along with organic ones); he has become unable to function, along worse, does not drive, not attending to ADLs. His parents agree that given patient's baseline anxiety, all these events combined into overwhelming anxiety and and tipped scales for him decompensate leading to this admission.? Patient is not manic; though he has paranoid, somatic delusions, he has no known history of psychotic illness. Pt's MACIEL/Somatic delusional worries (and possibly OCD) about his organic medical illness have become delusional making it difficult to ascertain what is going on and whether there is an organic component to his complaint that he cannot keep down food or water. Patient has no insight that he has delusional thoughts (he had 1 fleeting moment of insight after Ativan lowered anxiety). Although he can understand possible concerns/consequences of refusing treatment (such risks of worsening kidney function,which he does not want and so he eventually consents to getting blood draws to monitor) his paranoid delusional thinking makes him think all treatments are useless, won't help him and that his situation is hopeless. He is unaware the role his anxiety plays in confounding his thinking, insisting nothing will help, even when some of his complaints could be resolved with something as simple as an enema. -while starting to drink minimal amounts of fluid, patient has otherwise either unable or is refusing to drink fluids; he refuses IV for fluids, refuses thoracic CT, refuses barium swallow, refuses Fleet enema, refuses occult stool test; intermittently refuses labs; refuses all medication including IM and SL); thus far he has eventually allowed labwork to monitor for kidney function.? Patient's anxiety is chronic but has reached a psychotic level and patient does not have the capacity to make medical decisions for himself. Patient has a detailed history of seeking treatment for his ailments. However, now he is disorganized; he says he wants to eat and drink, does not want to ...wants to live, does not want to damage his kidneys... however he refuses nearly all?treatments/interventions. -telegraphic typewriter repairer has discussed case w/ hospitalist and PA PLAN: Section 8b, involuntarily Civilly committed on 03/29.? q15min checks.? Signed HCP on 03/19/22 -INVOKE HCP: HCP's notified. Patient has paranoid delusions that severely impair his judgment and insight and he is not able to make medical decisions for himself; he is denying treatments that he would normally accept.? Healthcare proxies both informed.? They want patient to get IV fluids, take amlodipine and metoprolol, continue to get lab work and engage in treatment.? Patient refuses fluids, amlodipine, metoprolol or other treatments. -Affirmation of HCP scheduled for 04/08/22;? HCP cannot yet direct tx until affirmed -Healthcare proxies are patient's parents: both want him to have any intervention needed want patient to take Metoprolol/amlodipne for thoracic aneurysm SIGN OUT A.?OCD/MACIEL/paranoid delusion/somatic disorder?(hx severe anxiety since childhood; coped w/ Etoh abuse; sober 1 yr) -Patient is severely anxious and convinced that nothing can be done for him; he has a history of seeking treatment for medical illness and if thinking clearly, would do so now. -He does not want to or harm his body, however he is convinced it Is hopeless.? -INCREASE to Zyprexa Zydis 10mg daily:? COURT ORDERED; IF REFUSES GIVE IM ZYPREXA -discussed risks/benefits of this medication and antipsychotics to both healthcare proxies who asked questions and understand and agree w/ treatment -Patient refuses any psychotropic medications. One limited trial of lexapro maybe seven years ago.? TO DO: may increase dose may consider adding IM ativan 1mg BID/TID to regimen...(a few hours after zyprexa dose) Push for patient to get out of bed walk around B.?Minimal PO intake fluid/food:?most likely psychogenic (KUB negative; refused barium swallow); initially not drinking or eating -with prompting pt has been drinking minimal amounts of fluid daily; eating food, though minimal amounts. -still making urine daily -Bun/Cr and Lytes remain WNL; continue to monitor *as long as he continues to drink fluids, it looks like his kidney function remains stable.? -Ordered oral hygiene care t.i.d. with chlorhexidine mouthwash TO DO:? 1. check bun/cr and lytes daily 2. Ask if making urine daily; monitor for clinical signs of dehydration 3. IF dysfunction arises call hospitalist; if patient needs emergent IV fluids or any treatment and refuses, two doctors need document that patient needs the intervention for life-saving reasons (ex: risking kidneys); HCP not yet affirmed so they cannot yet direct tx 4. PUSH P.O. FLUID INTAKE : Discussed with Nursing who was aware and will continually do so -if patient refuses to drink, continue to evaluate kidney function. May need to consider IV fluids, to avert risk of severe and/or permanent kidney damage. -currently Patient is still making urine and labs reveal kidney function remains WNL -Will continue to assess dehydration however?without fluids patient will at some point risks severe and even permanent kidney damage. -telegraphic typewriter repairer has discussed case with both Psychiatric Director Dr. Pérez and several hospitalists (listed throughout) -will continue to monitor labs as pt allows -Monitor for clinical signs of dehydration: Dry mucus membranes; Skin turgor, drop in blood pressure/reflex tachycardia; sunken eyes will monitor BMP will monitor for clinical signs of dehydration will monitor PO intake and if making urine C.?Thoracic aneurysm: consulted with Laboratory Sampler Dr. Pennington and appreciate recommendations above -Patient refusing Metoprolol/amlodipne; both ordered (thinks situation hopeless): Discussed again with sand slinger who reports that for the short term, as long as blood pressure is under control -Pt refuses to allow CT to Assess thoracic aneurysm (last assessed Nov 2021 at 4.3cm; however while he initially c/o of ?sudden onset of substernal upper abdominal pain on eating/drinking, this complaint has resolved making this no longer a concern) -blood pressures have mostly remained under control however patient is tachycardic Patient educated on: therapeutic strategies Informed Consent: does not understand Reason for contiued inpatient stay Substantial Risk for: med/psych decompensation Time Spent With Patient Time: Total time managing care of this patient today _60___ minutes.
[2022-04-03 16:00] VITALS: BP 138/78; PULSE 104; RESP 16; TEMP 36.7; O2SAT 98
[2022-04-03 20:00] VITALS: BP 106/64; PULSE 112; RESP 14; TEMP 36.7
--- NOTE | 2022-04-04 | ECG_ITS ---
Test Reason : K+ 3.1 Blood Pressure : / mmHG Vent. Rate : 104 BPM Atrial Rate : 104 BPM P-R Int : 158 ms QRS Dur : 074 ms QT Int : 330 ms P-R-T Axes : 052 000 017 degrees QTc Int : 433 ms Artifact in tracing Sinus tachycardia Possible Inferior infarct (cited on or before 17-MAR-2022) Abnormal ECG When compared with ECG of 17-MAR-2022 14:24, No significant changes seen Referred By: Astrid Wilson Electronically Signed By:LORENA SONG
[2022-04-04 08:28] LABS: Anion Gap 14 (12-20); Blood Urea Nitrogen 19 mg/dL (9-16); Calcium 8.9 mg/dL (8.4-10.2); Carbon Dioxide 25 mmol/L (22-29); Chloride 106 mmol/L (96-108); Creatinine Clr Calc Pharmacy 106.5; Estimated Glomerular Filt Rate > 60; Glucose Random 86 mg/dL (60-115); Potassium 3.1 mmol/L (3.3-5.1); Sodium 142 mmol/L (135-145)
[2022-04-04 08:30] VITALS: BP 122/81; PULSE 94; TEMP 35.8
[2022-04-04] MEDS: Metoprolol Succinate ER 25 MG TAB.ER.24H PO (08:54)
[2022-04-04] MEDS: amLODIPine Besylate 5 MG TABLET PO (08:54)
[2022-04-04] MEDS: OLANZapine ODT 10 MG TAB.RAPDIS TRANSLINGU (08:55)
[2022-04-04] MEDS: LORazepam 1 MG TABLET PO ×3 (08:55→22:51)
--- NOTE | 2022-04-04 18:21 | HO.PSYCHPN ---
Subjective Subjective Date of Service: 04/04/22 Reason For Visit: psychosis, delusions of persecution, SI Interim History: Do you think I will get better? More engaged when we met today-appears brighter, asking questions, more attentive to his plan. K+ 3.1 today without active sx. Other labs within reasonable limits. Daily values Parents visited. Pt cried during visit with mom (who visited second today after dad) and asked to be excused, citing visit was overstimulating. Intake of food fluids is improving Blood pressure today is WNL Met with parents to review their questions, plan of care. Mother is very anxious about pt's tearfulness and not wanting to interact for a long period with her today. Medication Compliance: Yes Side effects from medications: No Attending Groups: No Review of Systems Acute medical concerns: No Medical Review of Systems: unchanged Mental Status Exam Mental Status Exam Patient Appearance: Unkempt Patient Orientation: Person and Place Level of Consciousness: Alert Patient Behavior: Talkative, Cooperative, Suspicious, Resistive to Care, Distractible and Good Eye Contact Mood Description: Withdrawn, Depressed, Anxious and Apprehensive Affect Description: Flat Patient Cognition Impaired: No Ability to Follow Directions: Fair Speech Pattern: Spontaneous Speech Memory Description: Episodic Impaired Hallucinations: None Delusions: Paranoid Ideation Perceptual Disturbances: Depersonalization and Derealization Thought Process: Illogical Thought Content: positive for Obsessional Thoughts, positive for Perseveration and positive for Thought Blocking Depressive Symptoms: Changes in Appetite, Significant Weight Loss, Loss of Int. in Activity, Feelings of Worthlessness, Hopelessness, Unhappiness, Increased Fatigue, Loss of Energy and Difficulty Concentrating Judgement: Poor Diagnostics Vital Signs (24Hr): Vital Signs - 24 hr 04/03/22 20:00 04/04/22 08:30 Temperature 98.1 F 96.5 F L Pulse Rate 112 H 94 Respiratory Rate 14 Blood Pressure 106/64 122/81 BMI result Body Mass Index 37.8 Labs Results: 03/17/22 14:30 04/04/22 07:49 Labs: Laboratory Results - last 48 hr 04/03/22 04/03/22 04/04/22 06:38 09:46 07:49 Sodium 141 142 Potassium 3.3 3.1 L Chloride 108 106 Carbon Dioxide 23 25 Anion Gap 13 14 BUN 24 H 19 H Creatinine 0.95 0.82 Estim Creat Clear Calc 92.0 106.5 Estimated GFR > 60 > 60 Random Glucose 89 86 Calcium 9.2 8.9 Total Creatine Kinase 27 L COVID-19 ([facility]) Negative COVID-19 Clin Com See Note Imaging Radiology Impressions: ITS Impressions KUB X-Ray 03/18/22 16:35 IMPRESSION: Unremarkable examination. Medications Medications Current Medications Acetaminophen (Acetaminophen 325 Mg Tablet) 650 mg PO Q6H PRN PRN Reason: Headache/Pain Mild Scale (1-3) Al Hydroxide/Mg Hydroxide (Magnesium Hydrox/Alum Hydrox 30 Ml Oral.Susp) 30 ml PO Q6H PRN PRN Reason: Heartburn/Nausea Amlodipine Besylate (Amlodipine Besylate 5 Mg Tablet) 5 mg PO DAILY [facility]; Protocol Last Admin: 04/04/22 08:54 Dose: 5 mg Chlorhexidine Gluconate (Chlorhexidine Gluc Oral Rinse 15 Ml Mouthwash) 15 ml BUCCAL TID [facility] Last Admin: 04/04/22 14:55 Dose: Not Given Lorazepam (Lorazepam 1 Mg Tablet) 1 mg PO Q4H PRN PRN Reason: Anxiety Lorazepam (Lorazepam 1 Mg Tablet) 1 mg PO TID [facility] Last Admin: 04/04/22 14:55 Dose: 1 mg Lorazepam (Lorazepam 2 Mg/Ml Vial) 1 mg IM TID PRN PRN Reason: If refuses PO Magnesium Hydroxide (Milk Of Magnesia 30 Ml Oral.Susp) 30 ml PO DAILY PRN PRN Reason: Constipation Metoprolol Succinate (Metoprolol Succinate Er 25 Mg Tab.Er.24h) 25 mg PO DAILY [facility]; Protocol Last Admin: 04/04/22 08:54 Dose: 25 mg Olanzapine (Olanzapine 10 Mg Vial) 10 mg IM DAILY PRN PRN Reason: if refuses PO Last Admin: 04/01/22 11:32 Dose: 10 mg Olanzapine (Olanzapine Odt 10 Mg Tab.Rapdis) 10 mg TRANSLINGU DAILY [facility] Last Admin: 04/04/22 08:55 Dose: 10 mg Polyethylene Glycol (Polyethylene Glycol 3350 17 Gm Powd.Pack) 17 gm PO DAILY PRN PRN Reason: constipation Sodium Biphosphate/Sodium Phosphate (Sodium Phosphate,[place]-Dibasic 133 Ml Enema) 133 ml [place] ONCE PRN PRN Reason: Constipation Trazodone HCl (Trazodone Hcl 50 Mg Tablet) 50 mg PO BEDTIME PRN PRN Reason: Insomnia Allergies Allergies Allergy/AdvReac Type Severity Reaction Status Date / Time No Known Allergies Allergy Verified 03/17/22 16:59 Assessment & Plan Assessment & Plan (1) Thoracic aortic aneurysm: Status: Acute Code(s): I71.20 - Thoracic aortic aneurysm, without rupture, unspecified Assessment and Plan: Known chronic thoracic aortic aneurysm without any acute symptoms. This is a chronic condition and there is no acute due to this lesion. It needs to be treated in the long run with medications such as metoprolol and other antihypertensive is a blood pressure remains elevated on metoprolol therapy to reduce she was stressed on the aorta. However is not having any acute symptoms at this point in time. Risk of rupture is very low in mild thoracic aortic aneurysm. His refusal of taking medication appears to be due to lack of understanding as well as his psychiatric condition that prevents him from processing the information. I would concentrate on treating his psychiatric condition so as to then eventually able to understand the need for taking medications. In the long run he will need to be followed as an outpatient by her insurance counsel that he was following before. If he has intermittent hypertensive episode which again seems to be driven by acute anxiety, would consider treating the anxiety disorder. Can use metoprolol intramuscularly if needed for acute hypertension. Although patient is currently refusing taking his medication and focus should be try to make him understand to take his medications. There is no relation should between thoracic aortic aneurysm and QT prolongation. Use of psychoactive medication as needed can be used and I do not see any clear contraindication, his EKG done on admission shows normal QTC interval. Usual precautions for QT prolongation with avoidance of other QT prolonging drugs and maintaining electrolytes especially magnesium and potassium in normal range. Also can check QTC interval after initiating psychoactive medications at a known to prolong QT interval. Will follow up if need be. Plan HPI: pt is a 46 yo male with long hx of anxiety, thoracic aneurysm (dx Nov 2021) who presents for severe anxiety in face of difficulty eating/drinking since this past monday. Pt is accompanied by his mother.? -Pt reports that this past monday he stopped being able to eat or drink since it caused pain (pointing to area just below his xiphoid process) and wretching. -hx of severe anxiety -but no hx of psychosis; no hx lyn Patient's parents review timeline events leading up to this admission: Prior to this summer, patient was overall doing fine, worked, drove his car and for the past 2 years had no obvious problems.? Parents agree that patient is drinking likely kept his anxiety down to some degree -September:? sister got diagnosed with melanoma very upsetting for patient -September:? patient had painless hematuria, cystoscopy did have a finding but it was benign -November:? About 4 years ago patient was diagnosed with thoracic aneurysm however he has not followed up.? This past summer he was going to the emergency room multiple times for various problems and eventually agreed to thoracic CT which showed that aneurysm had increased to 4.3 mg -December:? Patient had a severely ingrown toenail which required surgical extraction -January: Patient diagnosed with macular degeneration is right eye -over these months patient has been eating less and less, saying that he had little appetite, did not like the smell of meat and has lost 20 or more lb -March: on Monday patient had bloody stool; 1st bowel movement in a week On Monday patient suddenly had chest pain and subsequent retching after drinking any fluid or eating anything On 02:30 patient went to [facility] ED, blood labs were drawn but no imaging or or labs; no fluid; long wait prompted patient to return home but he then came to [place] ED where he got IV fluid HOSPITAL COURSE: .03/19 meeting w/ parents; pt anxious, lamenting that nothing can be done for him, just let him go...asking his parents to just leave him somewhere...Typesetter Apprentice asked where the side of the road? and he says yes. He denies any SI and laments i want to drink i want to eat...i just can't...i can't explain it.. but goes on to repeat that nothing can be done for him.? Patient refuses to believe that medical technical writer has seeing other patients who could not eat or drink, saying that this is a unique situation.? Typesetter Apprentice and parents together tried to encourage patient to take another Ativan under his tongue, which helped yesterday however he refused and kept saying it will not help... there is no point (after patient took Ativan under his tongue he was much more reasonable and able to engage with medical technical writer and agreed that perhaps he could be helped; at that time he agreed to KUB, barium swallow and thoracic CT-each intervention was explained to patient.? Patient got the KUB but was worried about the CT and eventually refused CT).? Patient refused an IV fluids for the same reason saying it is not going to help. Patient has a thoracic aneurysm and has not been taking his metoprolol or amlodipine saying he is unable to swallow.? Typesetter Apprentice discussed with patient who understands the need for these medications for his thoracic aneurysm however He refuses IV metoprolol saying it's not going to help...? Nothing is going to help....? You can not fix me.... -patient reported that he did make urine today, that it was brown and bubbly Typesetter Apprentice, Patient and mother and father discussed healthcare proxy and patient was initially ambivalent.? Typesetter Apprentice explained the details of healthcare proxy;? patient asked appropriate questions and expressed he understood and said he trusts his parents and that they are great. Patient signed healthcare proxy designating his mother and than his father as alternate. Discussed case with Hospitalist Dr. Hernandez, Dr. Law (GI) and insurance counsel Dr. Serrano -Barrium swallow on hold to first r/o obstruction (per amrik Law) with KUB -KUB ordered (per Dr. Law): unremarkable -CT chest/angio/aortic ordered with IV contrast to r/o worsening thoracic aneurysm (per dr. Serrano-though considers this unlikely); pt refused -fleet enema ordered: refused 03/20 Patient remains delusional 03/21 Remains delusoinal. He was able to drink some, small amount of fluid; refused IV; again discussed w/ patient consequences of refusal but he maintains that it won't help anyway. 03/22 seems more depressed today and does not respond with anxious lament when approached with questions.? Remains delusional and refuses IV or any kind of medication or treatment.? He seems to agree to continue allowing lab work for monitoring kidney functions. -potassium mildly low today -BUN/creatinine WNL 03/23 patient remains with paranoid delusional thinking regarding his physical health.? He is trying to eat and drink and has been able to keep of food and fluids down.? He continues to refuse medication of any kind, including medications prescribed by insurance counsel to prevent thoracic aneurysm from worsening.? Both patient's parents/healthcare proxy want him to take medications including metoprolol and amlodipine. -lytes: WNL -BUN creatinine: WNL -patient is taking in enough fluid that his kidney function remains intact and at this time patient appears stable without IV fluids 03/24 Patient remains delusional and despondent.? He says he is not good and continues to say I do not know what I am going to do I am just lost. Typesetter Apprentice discussed reasons to try medications to which patient says it makes sense however he follows up with I just do not know......i'm in bad shape... the only thing I know is that there are no solutions..? I am certain about... Typesetter Apprentice later met with patient again while his parents were visiting; patient's parents are urged him to try medications that medical technical writer is offering however patient adamantly refuses.? He tried to help medical technical writer and family understand by saying I do not want to , I just know there is not a chance.? It is the only thing left that I do know. ? Family discussion about healthcare proxy and involuntary commitment which patient understands. -Lytes: WNL -BUN/creatinine: WNL -Patient making urine -Patient drank about 2 cups of water by miday and drank and orange juice box; also ate a fruit cup and a tangerine -given labs and fluid intake, patient appears stable without IV fluids 03/25/2022 Patient remains anxious despondent to me a appears to be psychotically depressed somatically delusional and on able to take in information or explain his self cyst drug active and potentially life-threatening behavior if he markedly limits food and fluids based on no rational explanation.? Refusing medical workup.? Patient has upcoming court hearing for retention and treatment plan.? Try to develop therapeutic [place] encourage labs every other day monitor food and fluid intake may intermittently need IV fluids If patient remains acute may benefit from ECT treatment which would have a more acute impact potentially 03/29/22 pt Involuntarily committed with substituted judgment for medication.? Typesetter Apprentice discussed this with patient who said nothing is going to help 03/30 patient starting on Zyprexa; unable to believe he can take it p.o. or SL so given IM.? Patient very anxious, does not think anything will help 03/31 Remains delusional; Only Drinking when prompted to do so. Patient agrees there is no chest pain when eating or drinking and that doing so does not make him retch/vomit.? However he continues to assert that he can not drink even when he does so in front of medical technical writer.? Creatinine bumped up today.? Still within normal limits; Will check daily 04/01 remains delusional; no insight poor judgment; clearly mentally tortured by paranoid delusion. Needs constant prompting to drink; passively allows oral care. Case discussed with Dr. Pérez who agrees with current treatment plan -tachycardic; kidney function still within normal limits; mildly hypernatremic, likely from dehydration; will order CPK for tomorrow although no BRETT 04/02/22 remains with delusional sx. accepted PO meds today. Team is strongly encouraging food and fluids. Responds to consistent encouragement. Met with pt and mother, then parents after their visit. 04/03/22: Continue current plan. 04/04/22: Daily labs and monitoring. Consider possibly decreasing Lorazepam as it may be activating depressive sx. 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 Symptoms likley formally subdued with alcohol abuse Patient has hx of anxiety started in childhood.? However has functioned in the community with almost no history of psychiatric meds/therapy. No hx of any psychosis or lyn.? 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 Starting this summer patient has undergone a series of stressful events (sisters cancer dx; patients own illness) triggering excessive worry and he's been going to the ED for psychosomatic complaints (along with organic ones); he has become unable to function, along worse, does not drive, not attending to ADLs. His parents agree that given patient's baseline anxiety, all these events combined into overwhelming anxiety and and tipped scales for him decompensate leading to this admission.? Patient is not manic; though he has paranoid, somatic delusions, he has no known history of psychotic illness. Pt's MACIEL/Somatic delusional worries (and possibly OCD) about his organic medical illness have become delusional making it difficult to ascertain what is going on and whether there is an organic component to his complaint that he cannot keep down food or water. Patient has no insight that he has delusional thoughts (he had 1 fleeting moment of insight after Ativan lowered anxiety). Although he can understand possible concerns/consequences of refusing treatment (such risks of worsening kidney function,which he does not want and so he eventually consents to getting blood draws to monitor) his paranoid delusional thinking makes him think all treatments are useless, won't help him and that his situation is hopeless. He is unaware the role his anxiety plays in confounding his thinking, insisting nothing will help, even when some of his complaints could be resolved with something as simple as an enema. -while starting to drink minimal amounts of fluid, patient has otherwise either unable or is refusing to drink fluids; he refuses IV for fluids, refuses thoracic CT, refuses barium swallow, refuses Fleet enema, refuses occult stool test; intermittently refuses labs; refuses all medication including IM and SL); thus far he has eventually allowed labwork to monitor for kidney function.? Patient's anxiety is chronic but has reached a psychotic level and patient does not have the capacity to make medical decisions for himself. Patient has a detailed history of seeking treatment for his ailments. However, now he is disorganized; he says he wants to eat and drink, does not want to ...wants to live, does not want to damage his kidneys... however he refuses nearly all?treatments/interventions. -medical technical writer has discussed case w/ hospitalist and PA PLAN: Section 8b, involuntarily Civilly committed on 03/29.? q15min checks.? Signed HCP on 03/19/22 -INVOKE HCP: HCP's notified. Patient has paranoid delusions that severely impair his judgment and insight and he is not able to make medical decisions for himself; he is denying treatments that he would normally accept.? Healthcare proxies both informed.? They want patient to get IV fluids, take amlodipine and metoprolol, continue to get lab work and engage in treatment.? Patient refuses fluids, amlodipine, metoprolol or other treatments. -Affirmation of HCP scheduled for 04/08/22;? HCP cannot yet direct tx until affirmed -Healthcare proxies are patient's parents: both want him to have any intervention needed want patient to take Metoprolol/amlodipne for thoracic aneurysm SIGN OUT A.?OCD/MACIEL/paranoid delusion/somatic disorder?(hx severe anxiety since childhood; coped w/ Etoh abuse; sober 1 yr) -Patient is severely anxious and convinced that nothing can be done for him; he has a history of seeking treatment for medical illness and if thinking clearly, would do so now. -He does not want to or harm his body, however he is convinced it Is hopeless.? -INCREASE to Zyprexa Zydis 10mg daily:? COURT ORDERED; IF REFUSES GIVE IM ZYPREXA -discussed risks/benefits of this medication and antipsychotics to both healthcare proxies who asked questions and understand and agree w/ treatment -Patient refuses any psychotropic medications. One limited trial of lexapro maybe seven years ago.? TO DO: may increase dose may consider adding IM ativan 1mg BID/TID to regimen...(a few hours after zyprexa dose) Push for patient to get out of bed walk around B.?Minimal PO intake fluid/food:?most likely psychogenic (KUB negative; refused barium swallow); initially not drinking or eating -with prompting pt has been drinking minimal amounts of fluid daily; eating food, though minimal amounts. -still making urine daily -Bun/Cr and Lytes remain WNL; continue to monitor *as long as he continues to drink fluids, it looks like his kidney function remains stable.? -Ordered oral hygiene care t.i.d. with chlorhexidine mouthwash TO DO:? 1. check bun/cr and lytes daily 2. Ask if making urine daily; monitor for clinical signs of dehydration 3. IF dysfunction arises call hospitalist; if patient needs emergent IV fluids or any treatment and refuses, two doctors need document that patient needs the intervention for life-saving reasons (ex: risking kidneys); HCP not yet affirmed so they cannot yet direct tx 4. PUSH P.O. FLUID INTAKE : Discussed with Nursing who was aware and will continually do so -if patient refuses to drink, continue to evaluate kidney function. May need to consider IV fluids, to avert risk of severe and/or permanent kidney damage. -currently Patient is still making urine and labs reveal kidney function remains WNL -Will continue to assess dehydration however?without fluids patient will at some point risks severe and even permanent kidney damage. -medical technical writer has discussed case with both Psychiatric Director Dr. Pérez and several hospitalists (listed throughout) -will continue to monitor labs as pt allows -Monitor for clinical signs of dehydration: Dry mucus membranes; Skin turgor, drop in blood pressure/reflex tachycardia; sunken eyes will monitor BMP will monitor for clinical signs of dehydration will monitor PO intake and if making urine C.?Thoracic aneurysm: consulted with Bi Lead Dr. Pennington and appreciate recommendations above -Patient refusing Metoprolol/amlodipne; both ordered (thinks situation hopeless): Discussed again with insurance counsel who reports that for the short term, as long as blood pressure is under control -Pt refuses to allow CT to Assess thoracic aneurysm (last assessed Nov 2021 at 4.3cm; however while he initially c/o of ?sudden onset of substernal upper abdominal pain on eating/drinking, this complaint has resolved making this no longer a concern) -blood pressures have mostly remained under control however patient is tachycardic Informed Consent: further education needed Reason for contiued inpatient stay Substantial Risk for: med/psych decompensation Time Spent With Patient Time: Total time managing care of this patient today __60__ minutes.
[2022-04-04 20:00] VITALS: BP 116/67; PULSE 82; TEMP 36; O2SAT 97
[2022-04-05 04:00] VITALS: BP 112/76; PULSE 92; TEMP 36.3; O2SAT 97
[2022-04-05 08:00] VITALS: BP 94/64; PULSE 93; RESP 16; TEMP 36.9; O2SAT 98
[2022-04-05] MEDS: LORazepam 1 MG TABLET PO ×3 (08:09→21:16)
[2022-04-05] MEDS: OLANZapine ODT 10 MG TAB.RAPDIS TRANSLINGU (08:10)
[2022-04-05 09:47] LABS: Anion Gap 13 (12-20); Blood Urea Nitrogen 16 mg/dL (9-16); Calcium 8.9 mg/dL (8.4-10.2); Carbon Dioxide 26 mmol/L (22-29); Chloride 104 mmol/L (96-108); Creatinine Clr Calc Pharmacy 110.6; Estimated Glomerular Filt Rate > 60; Glucose Random 78 mg/dL (60-115); Potassium 3.4 mmol/L (3.3-5.1); Sodium 140 mmol/L (135-145)
--- NOTE | 2022-04-05 09:59 | HO.PSYCHPN ---
Subjective Subjective Date of Service: 04/05/22 Reason For Visit: psychosis, delusions of persecution, SI Interim History: Patient remains depressed and anxious. More calm however. He still has delusional ideas about what is happening to his body saying it is something foreign happening to him and that it is not explainable and that he does not think treatments will help, however despite this continued believe, he is eating and drinking adequately. Still only attending to ADLs if prompted and remains isolating in his room. He said he feels badly about upsetting his parents so asks them to come every other day instead. Denies any medication side effects and understands will start Prozac (telegraphic typewriter mechanic reviewed risks/side effects of this medication which patient understood). Mental Status Exam Mental Status Exam Narrative: Pt is alert and oriented; behavior is depressed, but more calm; dressed in casual attire with scruffy facial hair, disheveled, marginal hygiene; mood is described as depressed and anxious; affect both depressed/ despondent and worried with furrowed brow; minimal eye contact appropriate; Speech is normal rate, volume and prosody and not pressured; psychomotor retardation present; thought process is goal directed; Thought content is on physical ailments, hopelessness and psychosomatic delusional worries; denies any SI/HI. There is no evidence of perceptual disturbance. Patients insight and judgment are impaired but have improved a little Diagnostics Vital Signs (24Hr): Vital Signs - 24 hr 04/04/22 20:00 04/05/22 04:00 Temperature 96.8 F 97.4 F Pulse Rate 82 92 Blood Pressure 116/67 112/76 Pulse Oximetry 97 97 Oxygen Delivery Method Room Air Room Air BMI result Body Mass Index 37.8 Labs Results: 03/17/22 14:30 04/05/22 08:18 Labs: Laboratory Results - last 48 hr 04/03/22 04/04/22 04/05/22 09:46 07:49 08:18 Sodium 142 140 Potassium 3.1 L 3.4 Chloride 106 104 Carbon Dioxide 25 26 Anion Gap 14 13 BUN 19 H 16 Creatinine 0.82 0.79 Estim Creat Clear Calc 106.5 110.6 Estimated GFR > 60 > 60 Random Glucose 86 78 Calcium 8.9 8.9 Total Creatine Kinase 21 L COVID-19 ([facility]) Negative COVID-19 Clin Com See Note Imaging Radiology Impressions: ITS Impressions KUB X-Ray 03/18/22 16:35 IMPRESSION: Unremarkable examination. Medications Medications Current Medications Acetaminophen (Acetaminophen 325 Mg Tablet) 650 mg PO Q6H PRN PRN Reason: Headache/Pain Mild Scale (1-3) Al Hydroxide/Mg Hydroxide (Magnesium Hydrox/Alum Hydrox 30 Ml Oral.Susp) 30 ml PO Q6H PRN PRN Reason: Heartburn/Nausea Amlodipine Besylate (Amlodipine Besylate 5 Mg Tablet) 5 mg PO DAILY [facility]; Protocol Last Admin: 04/04/22 08:54 Dose: 5 mg Chlorhexidine Gluconate (Chlorhexidine Gluc Oral Rinse 15 Ml Mouthwash) 15 ml BUCCAL TID [facility] Last Admin: 04/04/22 22:51 Dose: Not Given Lorazepam (Lorazepam 1 Mg Tablet) 1 mg PO Q4H PRN PRN Reason: Anxiety Lorazepam (Lorazepam 1 Mg Tablet) 1 mg PO TID [facility] Last Admin: 04/05/22 08:09 Dose: 1 mg Lorazepam (Lorazepam 2 Mg/Ml Vial) 1 mg IM TID PRN PRN Reason: If refuses PO Magnesium Hydroxide (Milk Of Magnesia 30 Ml Oral.Susp) 30 ml PO DAILY PRN PRN Reason: Constipation Metoprolol Succinate (Metoprolol Succinate Er 25 Mg Tab.Er.24h) 25 mg PO DAILY [facility]; Protocol Last Admin: 04/04/22 08:54 Dose: 25 mg Olanzapine (Olanzapine 10 Mg Vial) 10 mg IM DAILY PRN PRN Reason: if refuses PO Last Admin: 04/01/22 11:32 Dose: 10 mg Olanzapine (Olanzapine Odt 10 Mg Tab.Rapdis) 10 mg TRANSLINGU DAILY [facility] Last Admin: 04/05/22 08:10 Dose: 10 mg Polyethylene Glycol (Polyethylene Glycol 3350 17 Gm Powd.Pack) 17 gm PO DAILY PRN PRN Reason: constipation Sodium Biphosphate/Sodium Phosphate (Sodium Phosphate,Schuyler-Dibasic 133 Ml Enema) 133 ml DC ONCE PRN PRN Reason: Constipation Trazodone HCl (Trazodone Hcl 50 Mg Tablet) 50 mg PO BEDTIME PRN PRN Reason: Insomnia Allergies Allergies Allergy/AdvReac Type Severity Reaction Status Date / Time No Known Allergies Allergy Verified 03/17/22 16:59 Assessment & Plan Assessment & Plan (1) Thoracic aortic aneurysm: Status: Acute Code(s): I71.20 - Thoracic aortic aneurysm, without rupture, unspecified Assessment and Plan: Known chronic thoracic aortic aneurysm without any acute symptoms. This is a chronic condition and there is no acute due to this lesion. It needs to be treated in the long run with medications such as metoprolol and other antihypertensive is a blood pressure remains elevated on metoprolol therapy to reduce she was stressed on the aorta. However is not having any acute symptoms at this point in time. Risk of rupture is very low in mild thoracic aortic aneurysm. His refusal of taking medication appears to be due to lack of understanding as well as his psychiatric condition that prevents him from processing the information. I would concentrate on treating his psychiatric condition so as to then eventually able to understand the need for taking medications. In the long run he will need to be followed as an outpatient by her special certificate dictator that he was following before. If he has intermittent hypertensive episode which again seems to be driven by acute anxiety, would consider treating the anxiety disorder. Can use metoprolol intramuscularly if needed for acute hypertension. Although patient is currently refusing taking his medication and focus should be try to make him understand to take his medications. There is no relation should between thoracic aortic aneurysm and QT prolongation. Use of psychoactive medication as needed can be used and I do not see any clear contraindication, his EKG done on admission shows normal QTC interval. Usual precautions for QT prolongation with avoidance of other QT prolonging drugs and maintaining electrolytes especially magnesium and potassium in normal range. Also can check QTC interval after initiating psychoactive medications at a known to prolong QT interval. Will follow up if need be. Plan HPI: pt is a 46 yo male with long hx of anxiety, thoracic aneurysm (dx Nov 2021) who presents for severe anxiety in face of difficulty eating/drinking since this past monday. Pt is accompanied by his mother.? -Pt reports that this past monday he stopped being able to eat or drink since it caused pain (pointing to area just below his xiphoid process) and wretching. -hx of severe anxiety -but no hx of psychosis; no hx lyn Patient's parents review timeline events leading up to this admission: Prior to this summer, patient was overall doing fine, worked, drove his car and for the past 2 years had no obvious problems.? Parents agree that patient is drinking likely kept his anxiety down to some degree -September:? sister got diagnosed with melanoma very upsetting for patient -September:? patient had painless hematuria, cystoscopy did have a finding but it was benign -November:? About 4 years ago patient was diagnosed with thoracic aneurysm however he has not followed up.? This past summer he was going to the emergency room multiple times for various problems and eventually agreed to thoracic CT which showed that aneurysm had increased to 4.3 mg -December:? Patient had a severely ingrown toenail which required surgical extraction -January: Patient diagnosed with macular degeneration is right eye -over these months patient has been eating less and less, saying that he had little appetite, did not like the smell of meat and has lost 20 or more lb -March: on Monday patient had bloody stool; 1st bowel movement in a week On Monday patient suddenly had chest pain and subsequent retching after drinking any fluid or eating anything On 02:30 patient went to [facility] ED, blood labs were drawn but no imaging or or labs; no fluid; long wait prompted patient to return home but he then came to [facility] where he got IV fluid HOSPITAL COURSE: .03/19 meeting w/ parents; pt anxious, lamenting that nothing can be done for him, just let him go...asking his parents to just leave him somewhere...System Trainer asked where the side of the road? and he says yes. He denies any SI and laments i want to drink i want to eat...i just can't...i can't explain it.. but goes on to repeat that nothing can be done for him.? Patient refuses to believe that telegraphic typewriter mechanic has seeing other patients who could not eat or drink, saying that this is a unique situation.? System Trainer and parents together tried to encourage patient to take another Ativan under his tongue, which helped yesterday however he refused and kept saying it will not help... there is no point (after patient took Ativan under his tongue he was much more reasonable and able to engage with telegraphic typewriter mechanic and agreed that perhaps he could be helped; at that time he agreed to KUB, barium swallow and thoracic CT-each intervention was explained to patient.? Patient got the KUB but was worried about the CT and eventually refused CT).? Patient refused an IV fluids for the same reason saying it is not going to help. Patient has a thoracic aneurysm and has not been taking his metoprolol or amlodipine saying he is unable to swallow.? System Trainer discussed with patient who understands the need for these medications for his thoracic aneurysm however He refuses IV metoprolol saying it's not going to help...? Nothing is going to help....? You can not fix me.... -patient reported that he did make urine today, that it was brown and bubbly System Trainer, Patient and mother and father discussed healthcare proxy and patient was initially ambivalent.? System Trainer explained the details of healthcare proxy;? patient asked appropriate questions and expressed he understood and said he trusts his parents and that they are great. Patient signed healthcare proxy designating his mother and than his father as alternate. Discussed case with Hospitalist Dr. Hernandez, Dr. Law (GI) and special certificate dictator Dr. Serrano -Barrium swallow on hold to first r/o obstruction (per amrik Law) with KUB -KUB ordered (per Dr. Law): unremarkable -CT chest/angio/aortic ordered with IV contrast to r/o worsening thoracic aneurysm (per dr. Serrano-though considers this unlikely); pt refused -fleet enema ordered: refused 03/20 Patient remains delusional 03/21 Remains delusoinal. He was able to drink some, small amount of fluid; refused IV; again discussed w/ patient consequences of refusal but he maintains that it won't help anyway. 03/22 seems more depressed today and does not respond with anxious lament when approached with questions.? Remains delusional and refuses IV or any kind of medication or treatment.? He seems to agree to continue allowing lab work for monitoring kidney functions. -potassium mildly low today -BUN/creatinine WNL 03/23 patient remains with paranoid delusional thinking regarding his physical health.? He is trying to eat and drink and has been able to keep of food and fluids down.? He continues to refuse medication of any kind, including medications prescribed by special certificate dictator to prevent thoracic aneurysm from worsening.? Both patient's parents/healthcare proxy want him to take medications including metoprolol and amlodipine. -lytes: WNL -BUN creatinine: WNL -patient is taking in enough fluid that his kidney function remains intact and at this time patient appears stable without IV fluids -he refuses IV for fluids, refuses thoracic CT, refuses barium swallow, refuses Fleet enema, refuses occult stool test; intermittently refuses labs; refuses all medication including IM and SL); thus far he has allowed labwork to monitor for kidney function.? Patient's anxiety is chronic but has reached a psychotic level and patient does not have the capacity to make medical decisions for himself. Patient has a detailed history of seeking treatment for his ailments. However, now he is disorganized; he says he wants to eat and drink, does not want to ...wants to live, does not want to damage his kidneys... however he refuses nearly all?treatments/interventions. -telegraphic typewriter mechanic has discussed case w/ hospitalist and TRESSA 03/24 Patient remains delusional and despondent.? He says he is not good and continues to say I do not know what I am going to do I am just lost. System Trainer discussed reasons to try medications to which patient says it makes sense however he follows up with I just do not know......i'm in bad shape... the only thing I know is that there are no solutions..? I am certain about... System Trainer later met with patient again while his parents were visiting; patient's parents are urged him to try medications that telegraphic typewriter mechanic is offering however patient adamantly refuses.? He tried to help telegraphic typewriter mechanic and family understand by saying I do not want to , I just know there is not a chance.? It is the only thing left that I do know. ? Family discussion about healthcare proxy and involuntary commitment which patient understands. -Lytes: WNL -BUN/creatinine: WNL -Patient making urine -Patient drank about 2 cups of water by miday and drank and orange juice box; also ate a fruit cup and a tangerine -given labs and fluid intake, patient appears stable without IV fluids 03/25/2022 Patient remains anxious despondent to me a appears to be psychotically depressed somatically delusional and on able to take in information or explain his self cyst drug active and potentially life-threatening behavior if he markedly limits food and fluids based on no rational explanation.? Refusing medical workup.? Patient has upcoming court hearing for retention and treatment plan.? Try to develop therapeutic [place] encourage labs every other day monitor food and fluid intake may intermittently need IV fluids If patient remains acute may benefit from ECT treatment which would have a more acute impact potentially 03/29/22 pt Involuntarily committed with substituted judgment for medication.? System Trainer discussed this with patient who said nothing is going to help 03/30 patient starting on Zyprexa; unable to believe he can take it p.o. or SL so given IM.? Patient very anxious, does not think anything will help 03/31 Remains delusional; Only Drinking when prompted to do so. Patient agrees there is no chest pain when eating or drinking and that doing so does not make him retch/vomit.? However he continues to assert that he can not drink even when he does so in front of telegraphic typewriter mechanic.? Creatinine bumped up today.? Still within normal limits; Will check daily 04/01 remains delusional; no insight poor judgment; clearly mentally tortured by paranoid delusion. Needs constant prompting to drink; passively allows oral care. Case discussed with Dr. Pérez who agrees with current treatment plan -tachycardic; kidney function still within normal limits; mildly hypernatremic, likely from dehydration; will order CPK for tomorrow although no BRETT 04/02/22 remains with delusional sx. accepted PO meds today. Team is strongly encouraging food and fluids. Responds to consistent encouragement. Met with pt and mother, then parents after their visit. 04/03/22: Continue current plan. 04/04/22: Daily labs and monitoring. Consider possibly decreasing Lorazepam as it may be activating depressive sx. 04/05/22: Patient remains delusional, depressed and anxious; however he is eating and drinking adequately without prompting and lab work remains within normal limits. Patient is also little more communicative. Will start Prozac for anxiety/depression and OCD like symptoms; Prozac is also often used in combination with Zyprexa for treatment of depression. 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 Symptoms likley formally subdued with alcohol abuse Patient has hx of anxiety started in childhood.? However has functioned in the community with almost no history of psychiatric meds/therapy. No hx of any psychosis or lyn.? 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 Starting this summer patient has undergone a series of stressful events (sisters cancer dx; patients own illness) triggering excessive worry and he's been going to the ED for psychosomatic complaints (along with organic ones); he has become unable to function, along worse, does not drive, not attending to ADLs. His parents agree that given patient's baseline anxiety, all these events combined into overwhelming anxiety and and tipped scales for him decompensate leading to this admission.? Patient is not manic; though he has paranoid, somatic delusions, he has no known history of psychotic illness. Pt's MACIEL/Somatic delusional worries (and possibly OCD) about his organic medical illness have become delusional making it difficult to ascertain what is going on and whether there is an organic component to his complaint that he cannot keep down food or water. Patient has no insight that he has delusional thoughts (he had 1 fleeting moment of insight after Ativan lowered anxiety). Although he can understand possible concerns/consequences of refusing treatment (such risks of worsening kidney function,which he does not want and so he eventually consents to getting blood draws to monitor) his paranoid delusional thinking makes him think all treatments are useless, won't help him and that his situation is hopeless. He is unaware the role his anxiety plays in confounding his thinking, insisting nothing will help, even when some of his complaints could be resolved with something as simple as an enema. Now taking medications, patient is eating and drinking adequately without need for prompting. He remains delusional and depressed. PLAN: Section 8b, involuntarily Civilly committed on 03/29.? q15min checks.? Signed HCP on 03/19/22 -INVOKE HCP: HCP's notified. Patient has paranoid delusions that severely impair his judgment and insight and he is not able to make medical decisions for himself; he is denying treatments that he would normally accept.? Healthcare proxies both informed.? They want patient to get IV fluids, take amlodipine and metoprolol, continue to get lab work and engage in treatment.? Patient refuses fluids, amlodipine, metoprolol or other treatments. -Affirmation of HCP scheduled for 04/08/22;? HCP cannot yet direct tx until affirmed -Healthcare proxies are patient's parents: both want him to have any intervention needed want patient to take Metoprolol/amlodipne for thoracic aneurysm A.?OCD/MACIEL/paranoid delusion/somatic disorder?(hx severe anxiety since childhood; coped w/ Etoh abuse; sober 1 yr) -Patient is severely anxious with delusions that someting is very wrong with him that cannot be understood or treated; he has a history of seeking treatment for medical illness and if thinking clearly, would do so now. -He does not want to or harm his body, however he is convinced it Is hopeless.? -continue Zyprexa/Zydis 10mg daily:? COURT ORDERED; IF REFUSES GIVE IM ZYPREXA (discussed risks/benefits of this medication and antipsychotics to HCP's) -continue Ativan 1 mg t.i.d.; patient is noticeably more interactive after Ativan -START Prozac 10 mg daily for anxiety/depression and OCD like symptoms B.?Minimal PO intake fluid/food: resolved:?psychogenic origin (KUB negative; refused barium swallow); initially not drinking or eating -now eating and drinking daily, even without prompting -making urine daily -monitor Bun/Cr and Lytes which thus far remain WNL *as long as he continues to drink fluids, it looks like his kidney function remains stable.? -Ordered oral hygiene care t.i.d. with chlorhexidine mouthwash; likely dc -if patient reverts back to refusal to drink, continue to evaluate kidney function. May need to consider IV fluids, to avert risk of severe and/or permanent kidney damage. -currently Patient is still making urine and labs reveal kidney function remains WNL -Will continue to assess dehydration however?without fluids patient will at some point risks severe and even permanent kidney damage. -telegraphic typewriter mechanic has discussed case with both Psychiatric Director Dr. Pérez and several hospitalists (listed throughout) -will continue to monitor labs as pt allows -Monitor for clinical signs of dehydration: Dry mucus membranes; Skin turgor, drop in blood pressure/reflex tachycardia; sunken eyes will monitor BMP will monitor for clinical signs of dehydration will monitor PO intake and if making urine C.?Thoracic aneurysm: Patient now taking metoprolol and amlodipine daily consulted with Concentrator Operator Dr. Pennington and appreciate recommendations above -initially Pt refuses to allow CT to Assess thoracic aneurysm (last assessed Nov 2021 at 4.3cm; however while he initially c/o of ?sudden onset of substernal upper abdominal pain on eating/drinking, this complaint has resolved making this no longer a concern) Patient educated on: diagnosis, medication risk/benefits and medical condition Informed Consent: understands, does not understand and further education needed Reason for contiued inpatient stay Substantial Risk for: inability to function and rapid decompensation Time Spent With Patient Time: Total time managing care of this patient today ____ minutes.
[2022-04-05] MEDS: amLODIPine Besylate 5 MG TABLET PO (10:23)
[2022-04-05] MEDS: Metoprolol Succinate ER 25 MG TAB.ER.24H PO (10:23)
[2022-04-05 12:00] VITALS: BP 98/66; PULSE 86; RESP 16; TEMP 36.9; O2SAT 98
[2022-04-05 20:00] VITALS: BP 104/53; PULSE 95; TEMP 36.3; O2SAT 97
[2022-04-06 08:00] VITALS: BP 106/60; PULSE 104; RESP 16; TEMP 36.7; O2SAT 96
[2022-04-06] MEDS: OLANZapine ODT 10 MG TAB.RAPDIS TRANSLINGU (08:44)
[2022-04-06] MEDS: amLODIPine Besylate 5 MG TABLET PO (08:44)
[2022-04-06] MEDS: Metoprolol Succinate ER 25 MG TAB.ER.24H PO (08:44)
[2022-04-06] MEDS: FLUoxetine HCl 10 MG CAPSULE PO (08:44)
[2022-04-06] MEDS: LORazepam 1 MG TABLET PO ×3 (08:44→21:19)
[2022-04-06 12:00] VITALS: BP 109/66; PULSE 86; RESP 16; TEMP 36.7; O2SAT 98
[2022-04-06 16:00] VITALS: BP 118/64; PULSE 80; RESP 16; TEMP 36.8; O2SAT 98
[2022-04-07] MEDS: amLODIPine Besylate 5 MG TABLET PO (08:35)
[2022-04-07] MEDS: FLUoxetine HCl 10 MG CAPSULE PO (08:35)
[2022-04-07] MEDS: LORazepam 1 MG TABLET PO ×3 (08:35→20:56)
[2022-04-07] MEDS: Metoprolol Succinate ER 25 MG TAB.ER.24H PO (08:35)
[2022-04-07] MEDS: OLANZapine ODT 10 MG TAB.RAPDIS TRANSLINGU (08:35)
[2022-04-07 08:39] VITALS: BP 108/62; PULSE 88; RESP 18; TEMP 37; O2SAT 95
--- NOTE | 2022-04-07 09:38 | HO.PSYCHPN ---
Subjective Subjective Date of Service: 04/06/22 Reason For Visit: psychosis, delusions of persecution, SI Interim History: Late entry note for patient seen on 04/06/2022 Patient says he is the same He is eating and drinking appropriately however says I do not know how to explain it but something is wrong. Patient shares with junior copywriter that he is worried about pus being in his blood stream and had junior copywriter look at both his toenail and fingers where he had pus before. Box Truck Owner Operator provided Medical Education on pus and sepsis and patient seemed to understand and accept that it is unlikely he has pus in his blood stream. Patient also said he feels something is wrong with his bone structure of his sternum and ribs; junior copywriter did focused exam palpating both sternum and ribs and reported to patient that anatomically from palpation that everything seems within normal limits. Patient expressed that he thinks no matter what he has a problem with junior copywriter will telling that is fine however patient did tolerate further reality testing and seemed to accept that his worries may be unfounded. Patient reports no bowel movement but says he knows it is coming and does not want any further stool softener. Box Truck Owner Operator discussed behavioral activation however patient refused saying he thinks he will just continue to lying bed. Mental Status Exam Mental Status Exam Narrative: Pt is alert and oriented; behavior is depressed, but more calm; dressed in casual attire with scruffy facial hair, disheveled, marginal hygiene; mood is described as depressed and anxious; affect both depressed/ despondent and worried with furrowed brow; minimal eye contact appropriate; Speech is normal rate, volume and prosody and not pressured; psychomotor retardation present; thought process is goal directed; Thought content is on physical ailments, hopelessness and psychosomatic delusional worries; denies any SI/HI. There is no evidence of perceptual disturbance. Patients insight and judgment are impaired but have improved a little Diagnostics Vital Signs (24Hr): Vital Signs - 24 hr 04/06/22 12:00 04/06/22 16:00 04/07/22 08:39 Temperature 98.1 F 98.2 F 98.6 F Pulse Rate 86 80 88 Respiratory Rate 16 16 18 Blood Pressure 109/66 118/64 108/62 Pulse Oximetry 98 98 95 Oxygen Delivery Method Room Air Room Air Room Air BMI result Body Mass Index 37.8 Labs 03/17/22 14:30 04/08/22 08:09 Labs: Laboratory Results - last 48 hr 04/05/22 08:18 Sodium 140 Potassium 3.4 Chloride 104 Carbon Dioxide 26 Anion Gap 13 BUN 16 Creatinine 0.79 Estim Creat Clear Calc 110.6 Estimated GFR > 60 Random Glucose 78 Calcium 8.9 Total Creatine Kinase 21 L Imaging Radiology Impressions: ITS Impressions KUB X-Ray 03/18/22 16:35 IMPRESSION: Unremarkable examination. Medications Medications Current Medications Acetaminophen (Acetaminophen 325 Mg Tablet) 650 mg PO Q6H PRN PRN Reason: Headache/Pain Mild Scale (1-3) Al Hydroxide/Mg Hydroxide (Magnesium Hydrox/Alum Hydrox 30 Ml Oral.Susp) 30 ml PO Q6H PRN PRN Reason: Heartburn/Nausea Amlodipine Besylate (Amlodipine Besylate 5 Mg Tablet) 5 mg PO DAILY [facility]; Protocol Last Admin: 04/07/22 08:35 Dose: 5 mg Chlorhexidine Gluconate (Chlorhexidine Gluc Oral Rinse 15 Ml Mouthwash) 15 ml BUCCAL TID [facility] Last Admin: 04/07/22 08:35 Dose: Not Given Fluoxetine HCl (Fluoxetine Hcl 10 Mg Capsule) 10 mg PO DAILY [facility] Last Admin: 04/07/22 08:35 Dose: 10 mg Lorazepam (Lorazepam 1 Mg Tablet) 1 mg PO Q4H PRN PRN Reason: Anxiety Lorazepam (Lorazepam 1 Mg Tablet) 1 mg PO TID [facility] Last Admin: 04/07/22 08:35 Dose: 1 mg Lorazepam (Lorazepam 2 Mg/Ml Vial) 1 mg IM TID PRN PRN Reason: If refuses PO Magnesium Hydroxide (Milk Of Magnesia 30 Ml Oral.Susp) 30 ml PO DAILY PRN PRN Reason: Constipation Metoprolol Succinate (Metoprolol Succinate Er 25 Mg Tab.Er.24h) 25 mg PO DAILY [facility]; Protocol Last Admin: 04/07/22 08:35 Dose: 25 mg Olanzapine (Olanzapine 10 Mg Vial) 10 mg IM DAILY PRN PRN Reason: if refuses PO Last Admin: 04/01/22 11:32 Dose: 10 mg Olanzapine (Olanzapine Odt 10 Mg Tab.Rapdis) 10 mg TRANSLINGU DAILY [facility] Last Admin: 04/07/22 08:35 Dose: 10 mg Polyethylene Glycol (Polyethylene Glycol 3350 17 Gm Powd.Pack) 17 gm PO DAILY PRN PRN Reason: constipation Sodium Biphosphate/Sodium Phosphate (Sodium Phosphate,[place]-Dibasic 133 Ml Enema) 133 ml MO ONCE PRN PRN Reason: Constipation Trazodone HCl (Trazodone Hcl 50 Mg Tablet) 50 mg PO BEDTIME PRN PRN Reason: Insomnia Allergies Allergies Allergy/AdvReac Type Severity Reaction Status Date / Time No Known Allergies Allergy Verified 03/17/22 16:59 Assessment & Plan Assessment & Plan (1) Thoracic aortic aneurysm: Status: Acute Code(s): I71.20 - Thoracic aortic aneurysm, without rupture, unspecified Assessment and Plan: Known chronic thoracic aortic aneurysm without any acute symptoms. This is a chronic condition and there is no acute due to this lesion. It needs to be treated in the long run with medications such as metoprolol and other antihypertensive is a blood pressure remains elevated on metoprolol therapy to reduce she was stressed on the aorta. However is not having any acute symptoms at this point in time. Risk of rupture is very low in mild thoracic aortic aneurysm. His refusal of taking medication appears to be due to lack of understanding as well as his psychiatric condition that prevents him from processing the information. I would concentrate on treating his psychiatric condition so as to then eventually able to understand the need for taking medications. In the long run he will need to be followed as an outpatient by her pmp project manager that he was following before. If he has intermittent hypertensive episode which again seems to be driven by acute anxiety, would consider treating the anxiety disorder. Can use metoprolol intramuscularly if needed for acute hypertension. Although patient is currently refusing taking his medication and focus should be try to make him understand to take his medications. There is no relation should between thoracic aortic aneurysm and QT prolongation. Use of psychoactive medication as needed can be used and I do not see any clear contraindication, his EKG done on admission shows normal QTC interval. Usual precautions for QT prolongation with avoidance of other QT prolonging drugs and maintaining electrolytes especially magnesium and potassium in normal range. Also can check QTC interval after initiating psychoactive medications at a known to prolong QT interval. Will follow up if need be. Plan HPI: pt is a 46 yo male with long hx of anxiety, thoracic aneurysm (dx Nov 2021) who presents for severe anxiety in face of difficulty eating/drinking since this past monday. Pt is accompanied by his mother.? -Pt reports that this past monday he stopped being able to eat or drink since it caused pain (pointing to area just below his xiphoid process) and wretching. -hx of severe anxiety -but no hx of psychosis; no hx lyn Patient's parents review timeline events leading up to this admission: Prior to this summer, patient was overall doing fine, worked, drove his car and for the past 2 years had no obvious problems.? Parents agree that patient is drinking likely kept his anxiety down to some degree -September:? sister got diagnosed with melanoma very upsetting for patient -September:? patient had painless hematuria, cystoscopy did have a finding but it was benign -November:? About 4 years ago patient was diagnosed with thoracic aneurysm however he has not followed up.? This past summer he was going to the emergency room multiple times for various problems and eventually agreed to thoracic CT which showed that aneurysm had increased to 4.3 mg -December:? Patient had a severely ingrown toenail which required surgical extraction -January: Patient diagnosed with macular degeneration is right eye -over these months patient has been eating less and less, saying that he had little appetite, did not like the smell of meat and has lost 20 or more lb -March: on Monday patient had bloody stool; 1st bowel movement in a week On Monday patient suddenly had chest pain and subsequent retching after drinking any fluid or eating anything On 02:30 patient went to [facility] ED, blood labs were drawn but no imaging or or labs; no fluid; long wait prompted patient to return home but he then came to [place] ED where he got IV fluid HOSPITAL COURSE: .03/19 meeting w/ parents; pt anxious, lamenting that nothing can be done for him, just let him go...asking his parents to just leave him somewhere...Box Truck Owner Operator asked where the side of the road? and he says yes. He denies any SI and laments i want to drink i want to eat...i just can't...i can't explain it.. but goes on to repeat that nothing can be done for him.? Patient refuses to believe that junior copywriter has seeing other patients who could not eat or drink, saying that this is a unique situation.? Box Truck Owner Operator and parents together tried to encourage patient to take another Ativan under his tongue, which helped yesterday however he refused and kept saying it will not help... there is no point (after patient took Ativan under his tongue he was much more reasonable and able to engage with junior copywriter and agreed that perhaps he could be helped; at that time he agreed to KUB, barium swallow and thoracic CT-each intervention was explained to patient.? Patient got the KUB but was worried about the CT and eventually refused CT).? Patient refused an IV fluids for the same reason saying it is not going to help. Patient has a thoracic aneurysm and has not been taking his metoprolol or amlodipine saying he is unable to swallow.? Box Truck Owner Operator discussed with patient who understands the need for these medications for his thoracic aneurysm however He refuses IV metoprolol saying it's not going to help...? Nothing is going to help....? You can not fix me.... -patient reported that he did make urine today, that it was brown and bubbly Box Truck Owner Operator, Patient and mother and father discussed healthcare proxy and patient was initially ambivalent.? Box Truck Owner Operator explained the details of healthcare proxy;? patient asked appropriate questions and expressed he understood and said he trusts his parents and that they are great. Patient signed healthcare proxy designating his mother and than his father as alternate. Discussed case with Hospitalist Dr. Hernandez, Dr. Law (GI) and pmp project manager Dr. [facility]err[facility] to first r/o obstruction (per amrik Law) with KUB -KUB ordered (per Dr. Law): unremarkable -CT chest/angio/aortic ordered with IV contrast to r/o worsening thoracic aneurysm (per dr. Serrano-though considers this unlikely); pt refused -fleet enema ordered: refused 03/20 Patient remains delusional 03/21 Remains delusoinal. He was able to drink some, small amount of fluid; refused IV; again discussed w/ patient consequences of refusal but he maintains that it won't help anyway. 03/22 seems more depressed today and does not respond with anxious lament when approached with questions.? Remains delusional and refuses IV or any kind of medication or treatment.? He seems to agree to continue allowing lab work for monitoring kidney functions. -potassium mildly low today -BUN/creatinine WNL 03/23 patient remains with paranoid delusional thinking regarding his physical health.? He is trying to eat and drink and has been able to keep of food and fluids down.? He continues to refuse medication of any kind, including medications prescribed by pmp project manager to prevent thoracic aneurysm from worsening.? Both patient's parents/healthcare proxy want him to take medications including metoprolol and amlodipine. -lytes: WNL -BUN creatinine: WNL -patient is taking in enough fluid that his kidney function remains intact and at this time patient appears stable without IV fluids -he refuses IV for fluids, refuses thoracic CT, refuses barium swallow, refuses Fleet enema, refuses occult stool test; intermittently refuses labs; refuses all medication including IM and SL); thus far he has allowed labwork to monitor for kidney function.? Patient's anxiety is chronic but has reached a psychotic level and patient does not have the capacity to make medical decisions for himself. Patient has a detailed history of seeking treatment for his ailments. However, now he is disorganized; he says he wants to eat and drink, does not want to ...wants to live, does not want to damage his kidneys... however he refuses nearly all?treatments/interventions. -junior copywriter has discussed case w/ hospitalist and PA 03/24 Patient remains delusional and despondent.? He says he is not good and continues to say I do not know what I am going to do I am just lost. Box Truck Owner Operator discussed reasons to try medications to which patient says it makes sense however he follows up with I just do not know......i'm in bad shape... the only thing I know is that there are no solutions..? I am certain about... Box Truck Owner Operator later met with patient again while his parents were visiting; patient's parents are urged him to try medications that junior copywriter is offering however patient adamantly refuses.? He tried to help junior copywriter and family understand by saying I do not want to , I just know there is not a chance.? It is the only thing left that I do know. ? Family discussion about healthcare proxy and involuntary commitment which patient understands. -Lytes: WNL -BUN/creatinine: WNL -Patient making urine -Patient drank about 2 cups of water by miday and drank and orange juice box; also ate a fruit cup and a tangerine -given labs and fluid intake, patient appears stable without IV fluids 03/25/2022 Patient remains anxious despondent to me a appears to be psychotically depressed somatically delusional and on able to take in information or explain his self cyst drug active and potentially life-threatening behavior if he markedly limits food and fluids based on no rational explanation.? Refusing medical workup.? Patient has upcoming court hearing for retention and treatment plan.? Try to develop therapeutic [place] encourage labs every other day monitor food and fluid intake may intermittently need IV fluids If patient remains acute may benefit from ECT treatment which would have a more acute impact potentially 03/29/22 pt Involuntarily committed with substituted judgment for medication.? Box Truck Owner Operator discussed this with patient who said nothing is going to help 03/30 patient starting on Zyprexa; unable to believe he can take it p.o. or SL so given IM.? Patient very anxious, does not think anything will help 03/31 Remains delusional; Only Drinking when prompted to do so. Patient agrees there is no chest pain when eating or drinking and that doing so does not make him retch/vomit.? However he continues to assert that he can not drink even when he does so in front of junior copywriter.? Creatinine bumped up today.? Still within normal limits; Will check daily 04/01 remains delusional; no insight poor judgment; clearly mentally tortured by paranoid delusion. Needs constant prompting to drink; passively allows oral care. Case discussed with Dr. Pérez who agrees with current treatment plan -tachycardic; kidney function still within normal limits; mildly hypernatremic, likely from dehydration; will order CPK for tomorrow although no BRETT 04/02/22 remains with delusional sx. accepted PO meds today. Team is strongly encouraging food and fluids. Responds to consistent encouragement. Met with pt and mother, then parents after their visit. 04/03/22: Continue current plan. 04/04/22: Daily labs and monitoring. Consider possibly decreasing Lorazepam as it may be activating depressive sx. 04/05/22: Patient remains delusional, depressed and anxious; however he is eating and drinking adequately without prompting and lab work remains within normal limits. Patient is also little more communicative. Will start Prozac for anxiety/depression and OCD like symptoms; Prozac is also often used in combination with Zyprexa for treatment of depression. 1/4 continued somatic delusional worries; however continues to eat and drink adequately. 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 Symptoms likley formally subdued with alcohol abuse Patient has hx of anxiety started in childhood.? However has functioned in the community with almost no history of psychiatric meds/therapy. No hx of any psychosis or lyn.? 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 Starting this summer patient has undergone a series of stressful events (sisters cancer dx; patients own illness) triggering excessive worry and he's been going to the ED for psychosomatic complaints (along with organic ones); he has become unable to function, along worse, does not drive, not attending to ADLs. His parents agree that given patient's baseline anxiety, all these events combined into overwhelming anxiety and and tipped scales for him decompensate leading to this admission.? Patient is not manic; though he has paranoid, somatic delusions, he has no known history of psychotic illness. Pt's MACIEL/Somatic delusional worries (and possibly OCD) about his organic medical illness have become delusional making it difficult to ascertain what is going on and whether there is an organic component to his complaint that he cannot keep down food or water. Patient has no insight that he has delusional thoughts (he had 1 fleeting moment of insight after Ativan lowered anxiety). Although he can understand possible concerns/consequences of refusing treatment (such risks of worsening kidney function,which he does not want and so he eventually consents to getting blood draws to monitor) his paranoid delusional thinking makes him think all treatments are useless, won't help him and that his situation is hopeless. He is unaware the role his anxiety plays in confounding his thinking, insisting nothing will help, even when some of his complaints could be resolved with something as simple as an enema. Now taking medications, patient is eating and drinking adequately without need for prompting. He remains delusional and depressed. PLAN: Section 8b, involuntarily Civilly committed on 03/29.? q15min checks.? Signed HCP on 03/19/22 -INVOKE HCP: HCP's notified. Patient has paranoid delusions that severely impair his judgment and insight and he is not able to make medical decisions for himself; he is denying treatments that he would normally accept.? Healthcare proxies both informed.? They want patient to get IV fluids, take amlodipine and metoprolol, continue to get lab work and engage in treatment.? Patient refuses fluids, amlodipine, metoprolol or other treatments. -Affirmation of HCP scheduled for 04/08/22;? HCP cannot yet direct tx until affirmed -Healthcare proxies are patient's parents: both want him to have any intervention needed want patient to take Metoprolol/amlodipne for thoracic aneurysm A.?OCD/MACIEL/paranoid delusion/somatic disorder?(hx severe anxiety since childhood; coped w/ Etoh abuse; sober 1 yr) -Patient is severely anxious with delusions that someting is very wrong with him that cannot be understood or treated; he has a history of seeking treatment for medical illness and if thinking clearly, would do so now. -He does not want to or harm his body, however he is convinced it Is hopeless.? -continue Zyprexa/Zydis 10mg daily:? COURT ORDERED; IF REFUSES GIVE IM ZYPREXA (discussed risks/benefits of this medication and antipsychotics to HCP's) -continue Ativan 1 mg t.i.d.; patient is noticeably more interactive after Ativan -START Prozac 10 mg daily for anxiety/depression and OCD like symptoms B.?Minimal PO intake fluid/food: resolved:?psychogenic origin (KUB negative; refused barium swallow); initially not drinking or eating -now eating and drinking daily, even without prompting -making urine daily -monitor Bun/Cr and Lytes which thus far remain WNL *as long as he continues to drink fluids, it looks like his kidney function remains stable.? -Ordered oral hygiene care t.i.d. with chlorhexidine mouthwash; likely dc -if patient reverts back to refusal to drink, continue to evaluate kidney function. May need to consider IV fluids, to avert risk of severe and/or permanent kidney damage. -currently Patient is still making urine and labs reveal kidney function remains WNL -Will continue to assess dehydration however?without fluids patient will at some point risks severe and even permanent kidney damage. -junior copywriter has discussed case with both Psychiatric Director Dr. Pérez and several hospitalists (listed throughout) -will continue to monitor labs as pt allows -Monitor for clinical signs of dehydration: Dry mucus membranes; Skin turgor, drop in blood pressure/reflex tachycardia; sunken eyes will monitor BMP will monitor for clinical signs of dehydration will monitor PO intake and if making urine C.?Thoracic aneurysm: Patient now taking metoprolol and amlodipine daily consulted with [employer] Dr. Pennington and appreciate recommendations above -initially Pt refuses to allow CT to Assess thoracic aneurysm (last assessed Nov 2021 at 4.3cm; however while he initially c/o of ?sudden onset of substernal upper abdominal pain on eating/drinking, this complaint has resolved making this no longer a concern) Guardian/Caregiver educated on: diagnosis and medical condition Informed Consent: does not understand and further education needed Reason for contiued inpatient stay Substantial Risk for: inability to function Time Spent With Patient Time: Total time managing care of this patient today ____ minutes.
[2022-04-07 12:00] VITALS: BP 98/56; PULSE 86; RESP 16; TEMP 37.1; O2SAT 97
[2022-04-07 14:17] VITALS: BMI 47.3
[2022-04-07 16:00] VITALS: BP 109/55; PULSE 81; TEMP 36.2; O2SAT 97
--- NOTE | 2022-04-07 17:37 | P.PNPSI_ITS ---
Subjective Subjective Date of Service: 04/07/22 Reason For Visit: psychosis, delusions of persecution, SI Interim History: Late entry note for patient seen 04/07 Patient lying in bed, despondent. Talks when talked to but otherwise reticent. Continues to eat and drink adequately. Continues to endorse somatic delusional worries Mental Status Exam Mental Status Exam Narrative: Pt is alert and oriented; behavior is depressed, but more calm; dressed in casual attire with scruffy facial hair, disheveled, marginal hygiene; mood is described as depressed and anxious; affect both depressed/ despondent and worried with furrowed brow; minimal eye contact appropriate; Speech is normal rate, volume and prosody and not pressured; psychomotor retardation present; thought process is goal directed; Thought content is on physical ailments, hopelessness and psychosomatic delusional worries; denies any SI/HI. There is no evidence of perceptual disturbance. Patients insight and judgment are impaired but have improved a little Diagnostics Vital Signs (24Hr): Vital Signs - 24 hr 04/07/22 20:00 04/08/22 08:00 Temperature 97.6 F Pulse Rate 73 Respiratory Rate 16 18 Blood Pressure 100/60 Pulse Oximetry 95 Oxygen Delivery Method Room Air BMI result Body Mass Index 47.3 Labs 03/17/22 14:30 04/08/22 08:09 Labs: Laboratory Results - last 48 hr 04/08/22 08:09 Sodium 141 Potassium 3.3 Chloride 106 Carbon Dioxide 26 Anion Gap 12 BUN 12 Creatinine 0.76 Estim Creat Clear Calc 130.6 Estimated GFR > 60 Random Glucose 91 Calcium 9.0 Total Bilirubin 0.4 AST 43 H ALT 91 H Alkaline Phosphatase 45 Total Protein 5.5 L Albumin 3.3 L Imaging Radiology Impressions: ITS Impressions KUB X-Ray 03/18/22 16:35 IMPRESSION: Unremarkable examination. Medications Medications Current Medications Acetaminophen (Acetaminophen 325 Mg Tablet) 650 mg PO Q6H PRN PRN Reason: Headache/Pain Mild Scale (1-3) Al Hydroxide/Mg Hydroxide (Magnesium Hydrox/Alum Hydrox 30 Ml Oral.Susp) 30 ml PO Q6H PRN PRN Reason: Heartburn/Nausea Amlodipine Besylate (Amlodipine Besylate 5 Mg Tablet) 5 mg PO DAILY [facility]; Protocol Last Admin: 04/08/22 09:19 Dose: 5 mg Fluoxetine HCl (Fluoxetine Hcl 20 Mg Capsule) 20 mg PO DAILY [facility] Lorazepam (Lorazepam 1 Mg Tablet) 1 mg PO Q4H PRN PRN Reason: Anxiety Lorazepam (Lorazepam 1 Mg Tablet) 1 mg PO TID [facility] Last Admin: 04/08/22 14:51 Dose: 1 mg Lorazepam (Lorazepam 2 Mg/Ml Vial) 1 mg IM TID PRN PRN Reason: If refuses PO Magnesium Hydroxide (Milk Of Magnesia 30 Ml Oral.Susp) 30 ml PO DAILY PRN PRN Reason: Constipation Metoprolol Succinate (Metoprolol Succinate Er 25 Mg Tab.Er.24h) 25 mg PO DAILY [facility]; Protocol Last Admin: 04/08/22 09:19 Dose: 25 mg Olanzapine (Olanzapine 10 Mg Vial) 10 mg IM DAILY PRN PRN Reason: if refuses PO Last Admin: 04/01/22 11:32 Dose: 10 mg Olanzapine (Olanzapine Odt 10 Mg Tab.Rapdis) 10 mg TRANSLINGU DAILY [facility] Last Admin: 04/08/22 09:19 Dose: 10 mg Polyethylene Glycol (Polyethylene Glycol 3350 17 Gm Powd.Pack) 17 gm PO DAILY PRN PRN Reason: constipation Sodium Biphosphate/Sodium Phosphate (Sodium Phosphate,Hardeman-Dibasic 133 Ml Enema) 133 ml AL ONCE PRN PRN Reason: Constipation Trazodone HCl (Trazodone Hcl 50 Mg Tablet) 50 mg PO BEDTIME PRN PRN Reason: Insomnia Allergies Allergies Allergy/AdvReac Type Severity Reaction Status Date / Time No Known Allergies Allergy Verified 03/17/22 16:59 Assessment & Plan Assessment & Plan (1) Thoracic aortic aneurysm: Status: Acute Code(s): I71.20 - Thoracic aortic aneurysm, without rupture, unspecified Assessment and Plan: Known chronic thoracic aortic aneurysm without any acute symptoms. This is a chronic condition and there is no acute due to this lesion. It needs to be treated in the long run with medications such as metoprolol and other antihypertensive is a blood pressure remains elevated on metoprolol therapy to reduce she was stressed on the aorta. However is not having any acute symptoms at this point in time. Risk of rupture is very low in mild thoracic aortic aneurysm. His refusal of taking medication appears to be due to lack of understanding as well as his psychiatric condition that prevents him from processing the information. I would concentrate on treating his psychiatric condition so as to then eventually able to understand the need for taking medications. In the long run he will need to be followed as an outpatient by her professor of anthropology that he was following before. If he has intermittent hypertensive episode which again seems to be driven by acute anxiety, would consider treating the anxiety disorder. Can use metoprolol intramuscularly if needed for acute hypertension. Although patient is currently refusing taking his medication and focus should be try to make him understand to take his medications. There is no relation should between thoracic aortic aneurysm and QT prolongation. Use of psychoactive medication as needed can be used and I do not see any clear contraindication, his EKG done on admission shows normal QTC interval. Usual precautions for QT prolongation with avoidance of other QT prolonging drugs and maintaining electrolytes especially magnesium and potassium in normal range. Also can check QTC interval after initiating psychoactive medications at a known to prolong QT interval. Will follow up if need be. Plan HPI: pt is a 46 yo male with long hx of anxiety, thoracic aneurysm (dx Nov 2021) who presents for severe anxiety in face of difficulty eating/drinking since this past monday. Pt is accompanied by his mother.? -Pt reports that this past monday he stopped being able to eat or drink since it caused pain (pointing to area just below his xiphoid process) and wretching. -hx of severe anxiety -but no hx of psychosis; no hx lyn Patient's parents review timeline events leading up to this admission: Prior to this summer, patient was overall doing fine, worked, drove his car and for the past 2 years had no obvious problems.? Parents agree that patient is drinking likely kept his anxiety down to some degree -September:? sister got diagnosed with melanoma very upsetting for patient -September:? patient had painless hematuria, cystoscopy did have a finding but it was benign -November:? About 4 years ago patient was diagnosed with thoracic aneurysm however he has not followed up.? This past summer he was going to the emergency room multiple times for various problems and eventually agreed to thoracic CT which showed that aneurysm had increased to 4.3 mg -December:? Patient had a severely ingrown toenail which required surgical extraction -January: Patient diagnosed with macular degeneration is right eye -over these months patient has been eating less and less, saying that he had little appetite, did not like the smell of meat and has lost 20 or more lb -March: on Monday patient had bloody stool; 1st bowel movement in a week On Monday patient suddenly had chest pain and subsequent retching after drinking any fluid or eating anything On 02:30 patient went to [facility] ED, blood labs were drawn but no imaging or or labs; no fluid; long wait prompted patient to return home but he then came to [place] [facility] where he got IV fluid HOSPITAL COURSE: .03/19 meeting w/ parents; pt anxious, lamenting that nothing can be done for him, just let him go...asking his parents to just leave him somewhere...Vacuum Metalizing Supervisor asked where the side of the road? and he says yes. He denies any SI and laments i want to drink i want to eat...i just can't...i can't explain it.. but goes on to repeat that nothing can be done for him.? Patient refuses to believe that contract technical writer has seeing other patients who could not eat or drink, saying that this is a unique situation.? Vacuum Metalizing Supervisor and parents together tried to encourage patient to take another Ativan under his tongue, which helped yesterday however he refused and kept saying it will not help... there is no point (after patient took Ativan under his tongue he was much more reasonable and able to engage with contract technical writer and agreed that perhaps he could be helped; at that time he agreed to KUB, barium swallow and thoracic CT-each intervention was explained to patient.? Patient got the KUB but was worried about the CT and eventually refused CT).? Patient refused an IV fluids for the same reason saying it is not going to help. Patient has a thoracic aneurysm and has not been taking his metoprolol or amlodipine saying he is unable to swallow.? Vacuum Metalizing Supervisor discussed with patient who understands the need for these medications for his thoracic aneurysm however He refuses IV metoprolol saying it's not going to help...? Nothing is going to help....? You can not fix me.... -patient reported that he did make urine today, that it was brown and bubbly Vacuum Metalizing Supervisor, Patient and mother and father discussed healthcare proxy and patient was initially ambivalent.? Vacuum Metalizing Supervisor explained the details of healthcare proxy;? patient asked appropriate questions and expressed he understood and said he trusts his parents and that they are great. Patient signed healthcare proxy designating his mother and than his father as alternate. Discussed case with Hospitalist Dr. Hernandez, Dr. Law (GI) and professor of anthropology Dr. Serrano -Barrium swallow on hold to first r/o obstruction (per amrik Law) with KUB -KUB ordered (per Dr. Law): unremarkable -CT chest/angio/aortic ordered with IV contrast to r/o worsening thoracic a neurysm (per dr. Serrano-though considers this unlikely); pt refused -fleet enema ordered: refused 03/20 Patient remains delusional 03/21 Remains delusoinal. He was able to drink some, small amount of fluid; refused IV; again discussed w/ patient consequences of refusal but he maintains that it won't help anyway. 03/22 seems more depressed today and does not respond with anxious lament when approached with questions.? Remains delusional and refuses IV or any kind of medication or treatment.? He seems to agree to continue allowing lab work for monitoring kidney functions. -potassium mildly low today -BUN/creatinine WNL 03/23 patient remains with paranoid delusional thinking regarding his physical health.? He is trying to eat and drink and has been able to keep of food and fluids down.? He continues to refuse medication of any kind, including medications prescribed by professor of anthropology to prevent thoracic aneurysm from worsening.? Both patient's parents/healthcare proxy want him to take medications including metoprolol and amlodipine. -lytes: WNL -BUN creatinine: WNL -patient is taking in enough fluid that his kidney function remains intact and at this time patient appears stable without IV fluids -he refuses IV for fluids, refuses thoracic CT, refuses barium swallow, refuses Fleet enema, refuses occult stool test; intermittently refuses labs; refuses all medication including IM and SL); thus far he has allowed labwork to monitor for kidney function.? Patient's anxiety is chronic but has reached a psychotic level and patient does not have the capacity to make medical decisions for himself. Patient has a detailed history of seeking treatment for his ailments. However, now he is disorganized; he says he wants to eat and drink, does not want to ...wants to live, does not want to damage his kidneys... however he refuses nearly all?treatments/interventions. -contract technical writer has discussed case w/ hospitalist and TRESSA 03/24 Patient remains delusional and despondent.? He says he is not good and continues to say I do not know what I am going to do I am just lost. Vacuum Metalizing Supervisor discussed reasons to try medications to which patient says it makes sense however he follows up with I just do not know......i'm in bad shape... the only thing I know is that there are no solutions..? I am certain about... Vacuum Metalizing Supervisor later met with patient again while his parents were visiting; patient's parents are urged him to try medications that contract technical writer is offering however patient adamantly refuses.? He tried to help contract technical writer and family understand by saying I do not want to , I just know there is not a chance.? It is the only thing left that I do know. ? Family discussion about healthcare proxy and involuntary commitment which patient understands. -Lytes: WNL -BUN/creatinine: WNL -Patient making urine -Patient drank about 2 cups of water by miday and drank and orange juice box; also ate a fruit cup and a tangerine -given labs and fluid intake, patient appears stable without IV fluids 03/25/2022 Patient remains anxious despondent to me a appears to be psychotically depressed somatically delusional and on able to take in information or explain his self cyst drug active and potentially life-threatening behavior if he markedly limits food and fluids based on no rational explanation.? Refusing medical workup.? Patient has upcoming court hearing for retention and treatment plan.? Try to develop therapeutic [place] encourage labs every other day monitor food and fluid intake may intermittently need IV fluids If patient remains acute may benefit from ECT treatment which would have a more acute impact potentially 03/29/22 pt Involuntarily committed with substituted judgment for medication.? Vacuum Metalizing Supervisor discussed this with patient who said nothing is going to help 03/30 patient starting on Zyprexa; unable to believe he can take it p.o. or SL so given IM.? Patient very anxious, does not think anything will help 03/31 Remains delusional; Only Drinking when prompted to do so. Patient agrees there is no chest pain when eating or drinking and that doing so does not make him retch/vomit.? However he continues to assert that he can not drink even when he does so in front of contract technical writer.? Creatinine bumped up today.? Still within normal limits; Will check daily 04/01 remains delusional; no insight poor judgment; clearly mentally tortured by paranoid delusion. Needs constant prompting to drink; passively allows oral care. Case discussed with Dr. Pérez who agrees with current treatment plan -tachycardic; kidney function still within normal limits; mildly hypernatremic, likely from dehydration; will order CPK for tomorrow although no BRETT 04/02/22 remains with delusional sx. accepted PO meds today. Team is strongly encouraging food and fluids. Responds to consistent encouragement. Met with pt and mother, then parents after their visit. 04/03/22: Continue current plan. 04/04/22: Daily labs and monitoring. Consider possibly decreasing Lorazepam as it may be activating depressive sx. 04/05/22: Patient remains delusional, depressed and anxious; however he is eating and drinking adequately without prompting and lab work remains within normal limits. Patient is also little more communicative. Will start Prozac for anxiety/depression and OCD like symptoms; Prozac is also often used in combination with Zyprexa for treatment of depression. 04/06 continued somatic delusional worries; however continues to eat and drink adequately. 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 Symptoms likley formally subdued with alcohol abuse Patient has hx of anxiety started in childhood.? However has functioned in the community with almost no history of psychiatric meds/therapy. No hx of any psych osis or lyn.? 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 Starting this summer patient has undergone a series of stressful events (sisters cancer dx; patients own illness) triggering excessive worry and he's been going to the ED for psychosomatic complaints (along with organic ones); he has become unable to function, along worse, does not drive, not attending to ADLs. His parents agree that given patient's baseline anxiety, all these events combined into overwhelming anxiety and and tipped scales for him decompensate leading to this admission.? Patient is not manic; though he has paranoid, somatic delusions, he has no known history of psychotic illness. Pt's MACIEL/Somatic delusional worries (and possibly OCD) about his organic medical illness have become delusional making it difficult to ascertain what is going on and whether there is an organic component to his complaint that he cannot keep down food or water. Patient has no insight that he has delusional thoughts (he had 1 fleeting moment of insight after Ativan lowered anxiety). Although he can understand possible concerns/consequences of refusing treatment (such risks of worsening kidney function,which he does not want and so he eventually consents to getting blood draws to monitor) his paranoid delusional thinking makes him think all treatments are useless, won't help him and that his situation is hopeless. He is unaware the role his anxiety plays in confounding his thinking, insisting nothing will help, even when some of his complaints could be resolved with something as simple as an enema. Now taking medications, patient is eating and drinking adequately without need for prompting. He remains delusional and depressed. PLAN: Section 8b, involuntarily Civilly committed on 03/29.? q15min checks.? Signed HCP on 03/19/22 -INVOKE HCP: HCP's notified. Patient has paranoid delusions that severely impair his judgment and insight and he is not able to make medical decisions for himself; he is denying treatments that he would normally accept.? Healthcare proxies both informed.? They want patient to get IV fluids, take amlodipine and metoprolol, continue to get lab work and engage in treatment.? Patient refuses fluids, amlodipine, metoprolol or other treatments. -Affirmation of HCP scheduled for 04/08/22;? HCP cannot yet direct tx until affirmed -Healthcare proxies are patient's parents: both want him to have any interv ention needed want patient to take Metoprolol/amlodipne for thoracic aneurysm A.?OCD/MACIEL/paranoid delusion/somatic disorder?(hx severe anxiety since childhood; coped w/ Etoh abuse; sober 1 yr) -Patient is severely anxious with delusions that someting is very wrong with him that cannot be understood or treated; he has a history of seeking treatment for medical illness and if thinking clearly, would do so now. -He does not want to or harm his body, however he is convinced it Is hopeless.? -continue Zyprexa/Zydis 10mg daily:? COURT ORDERED; IF REFUSES GIVE IM ZYPREXA (discussed risks/benefits of this medication and antipsychotics to HCP's) -continue Ativan 1 mg t.i.d.; patient is noticeably more interactive after Ativan -continue Prozac 10 mg daily for anxiety/depression and OCD like symptoms B.?Minimal PO intake fluid/food: resolved:?psychogenic origin (KUB negative; refused barium swallow); initially not drinking or eating -now eating and drinking daily, even without prompting -making urine daily -monitor Bun/Cr and Lytes which thus far remain WNL *as long as he continues to drink fluids, it looks like his kidney function remains stable.? -Ordered oral hygiene care t.i.d. with chlorhexidine mouthwash; likely dc -if patient reverts back to refusal to drink, continue to evaluate kidney function. May need to consider IV fluids, to avert risk of severe and/or permanent kidney damage. -currently Patient is still making urine and labs reveal kidney function remains WNL -Will continue to assess dehydration however?without fluids patient will at some point risks severe and even permanent kidney damage. -contract technical writer has discussed case with both Psychiatric Director Dr. Pérez and several hospitalists (listed throughout) -will continue to monitor labs as pt allows -Monitor for clinical signs of dehydration: Dry mucus membranes; Skin turgor, drop in blood pressure/reflex tachycardia; sunken eyes will monitor BMP will monitor for clinical signs of dehydration will monitor PO intake and if making urine C.?Thoracic aneurysm: Patient now taking metoprolol and amlodipine daily consulted with Latex Spooler Dr. Pennington and appreciate recommendations above -initially Pt refuses to allow CT to Assess thoracic aneurysm (last assessed Nov 2021 at 4.3cm; however while he initially c/o of ?sudden onset of substernal upper abdominal pain on eating/drinking, this complaint has resolved making this no longer a concern) Patient educated on: diagnosis Informed Consent: does not understand Reason for contiued inpatient stay Substantial Risk for: inability to function Time Spent With Patient Time: Total time managing care of this patient today ____ minutes.
[2022-04-07 20:00] VITALS: RESP 16
[2022-04-08 08:00] VITALS: BP 100/60; PULSE 73; RESP 18; TEMP 36.4; O2SAT 95
[2022-04-08 08:54] LABS: Alanine Aminotransferase 91 U/L (0-40); Albumin Level 3.3 g/dL (3.5-5.0); Alkaline Phosphatase 45 U/L (39-117); Anion Gap 12 (12-20); Aspartate Amino Transferase 43 U/L (5-37); Bilirubin Total 0.4 mg/dL (0.0-1.0); Blood Urea Nitrogen 12 mg/dL (9-16); Carbon Dioxide 26 mmol/L (22-29); Chloride 106 mmol/L (96-108); Creatinine Clr Calc Pharmacy 130.6; Estimated Glomerular Filt Rate > 60; Glucose Random 91 mg/dL (60-115); Potassium 3.3 mmol/L (3.3-5.1); Sodium 141 mmol/L (135-145); Total Protein 5.5 g/dL (6.5-8.0)
[2022-04-08] MEDS: LORazepam 1 MG TABLET PO ×3 (09:19→20:21)
[2022-04-08] MEDS: FLUoxetine HCl 10 MG CAPSULE PO (09:19)
[2022-04-08] MEDS: OLANZapine ODT 10 MG TAB.RAPDIS TRANSLINGU (09:19)
[2022-04-08] MEDS: amLODIPine Besylate 5 MG TABLET PO (09:19)
[2022-04-08] MEDS: Metoprolol Succinate ER 25 MG TAB.ER.24H PO (09:19)
[2022-04-08 17:10] VITALS: BP 106/55; PULSE 79; TEMP 36.9
--- NOTE | 2022-04-08 17:39 | P.PNPSI_ITS ---
Subjective Subjective Date of Service: 04/08/22 Reason For Visit: psychosis, delusions of persecution, SI Interim History: Patient has not changed much; he continues to eat and drink adequately but otherwise leg is in his bed and does not attend ADLs unless prompted; he is brushing his teeth. He says he just lies in bed all day hoping for a miracle. Patient clarified about alien interaction and he said he does not think that there is any aliens controlling his body at all. He just said that it his body feels alien to him. Mental Status Exam Mental Status Exam Narrative: Pt is alert and oriented; behavior is depressed, but more calm; dressed in casual attire with scruffy facial hair, disheveled, marginal hygiene; mood is described as depressed and anxious; affect both depressed/ despondent and worried with furrowed brow; minimal eye contact appropriate; Speech is normal rate, volume and prosody and not pressured; psychomotor retardation present; thought process is goal directed; Thought content is on physical ailments, hopelessness and psychosomatic delusional worries; denies any SI/HI. There is no evidence of perceptual disturbance. Patients insight and judgment are impaired but have improved a little Diagnostics Vital Signs (24Hr): Vital Signs - 24 hr 04/07/22 20:00 04/08/22 08:00 Temperature 97.6 F Pulse Rate 73 Respiratory Rate 16 18 Blood Pressure 100/60 Pulse Oximetry 95 Oxygen Delivery Method Room Air BMI result Body Mass Index 47.3 Labs 03/17/22 14:30 04/08/22 08:09 Labs: Laboratory Results - last 48 hr 04/08/22 08:09 Sodium 141 Potassium 3.3 Chloride 106 Carbon Dioxide 26 Anion Gap 12 BUN 12 Creatinine 0.76 Estim Creat Clear Calc 130.6 Estimated GFR > 60 Random Glucose 91 Calcium 9.0 Total Bilirubin 0.4 AST 43 H ALT 91 H Alkaline Phosphatase 45 Total Protein 5.5 L Albumin 3.3 L Imaging Radiology Impressions: ITS Impressions KUB X-Ray 03/18/22 16:35 IMPRESSION: Unremarkable examination. Medications Medications Current Medications Acetaminophen (Acetaminophen 325 Mg Tablet) 650 mg PO Q6H PRN PRN Reason: Headache/Pain Mild Scale (1-3) Al Hydroxide/Mg Hydroxide (Magnesium Hydrox/Alum Hydrox 30 Ml Oral.Susp) 30 ml PO Q6H PRN PRN Reason: Heartburn/Nausea Amlodipine Besylate (Amlodipine Besylate 5 Mg Tablet) 5 mg PO DAILY [facility]; Protocol Last Admin: 04/08/22 09:19 Dose: 5 mg Fluoxetine HCl (Fluoxetine Hcl 20 Mg Capsule) 20 mg PO DAILY [facility] Lorazepam (Lorazepam 1 Mg Tablet) 1 mg PO Q4H PRN PRN Reason: Anxiety Lorazepam (Lorazepam 1 Mg Tablet) 1 mg PO TID [facility] Last Admin: 04/08/22 14:51 Dose: 1 mg Lorazepam (Lorazepam 2 Mg/Ml Vial) 1 mg IM TID PRN PRN Reason: If refuses PO Magnesium Hydroxide (Milk Of Magnesia 30 Ml Oral.Susp) 30 ml PO DAILY PRN PRN Reason: Constipation Metoprolol Succinate (Metoprolol Succinate Er 25 Mg Tab.Er.24h) 25 mg PO DAILY [facility]; Protocol Last Admin: 04/08/22 09:19 Dose: 25 mg Olanzapine (Olanzapine 10 Mg Vial) 10 mg IM DAILY PRN PRN Reason: if refuses PO Last Admin: 04/01/22 11:32 Dose: 10 mg Olanzapine (Olanzapine Odt 10 Mg Tab.Rapdis) 10 mg TRANSLINGU DAILY [facility] Last Admin: 04/08/22 09:19 Dose: 10 mg Polyethylene Glycol (Polyethylene Glycol 3350 17 Gm Powd.Pack) 17 gm PO DAILY PRN PRN Reason: constipation Sodium Biphosphate/Sodium Phosphate (Sodium Phosphate,[place]-Dibasic 133 Ml Enema) 133 ml NC ONCE PRN PRN Reason: Constipation Trazodone HCl (Trazodone Hcl 50 Mg Tablet) 50 mg PO BEDTIME PRN PRN Reason: Insomnia Allergies Allergies Allergy/AdvReac Type Severity Reaction Status Date / Time No Known Allergies Allergy Verified 03/17/22 16:59 Assessment & Plan Assessment & Plan (1) Thoracic aortic aneurysm: Status: Acute Code(s): I71.20 - Thoracic aortic aneurysm, without rupture, unspecified Assessment and Plan: Known chronic thoracic aortic aneurysm without any acute symptoms. This is a chronic condition and there is no acute due to this lesion. It needs to be treated in the long run with medications such as metoprolol and other antihypertensive is a blood pressure remains elevated on metoprolol therapy to reduce she was stressed on the aorta. However is not having any acute symptoms at this point in time. Risk of rupture is very low in mild thoracic aortic aneurysm. His refusal of taking medication appears to be due to lack of understanding as well as his psychiatric condition that prevents him from processing the information. I would concentrate on treating his psychiatric condition so as to then eventually able to understand the need for taking medications. In the long run he will need to be followed as an outpatient by her oleo hasher and renderer that he was following before. If he has intermittent hypertensive episode which again seems to be driven by acute anxiety, would consider treating the anxiety disorder. Can use metoprolol intramuscularly if needed for acute hypertension. Although patient is currently refusing taking his medication and focus should be try to make him understand to take his medications. There is no relation should between thoracic aortic aneurysm and QT prolongation. Use of psychoactive medication as needed can be used and I do not see any clear contraindication, his EKG done on admission shows normal QTC interval. Usual precautions for QT prolongation with avoidance of other QT prolonging drugs and maintaining electrolytes especially magnesium and potassium in normal range. Also can check QTC interval after initiating psychoactive medications at a known to prolong QT interval. Will follow up if need be. Plan HPI: pt is a 46 yo male with long hx of anxiety, thoracic aneurysm (dx Nov 2021) who presents for severe anxiety in face of difficulty eating/drinking since this past monday. Pt is accompanied by his mother.? -Pt reports that this past monday he stopped being able to eat or drink since it caused pain (pointing to area just below his xiphoid process) and wretching. -hx of severe anxiety -but no hx of psychosis; no hx lyn Patient's parents review timeline events leading up to this admission: Prior to this summer, patient was overall doing fine, worked, drove his car and for the past 2 years had no obvious problems.? Parents agree that patient is drinking likely kept his anxiety down to some degree -September:? sister got diagnosed with melanoma very upsetting for patient -September:? patient had painless hematuria, cystoscopy did have a finding but it was benign -November:? About 4 years ago patient was diagnosed with thoracic aneurysm however he has not followed up.? This past summer he was going to the emergency room multiple times for various problems and eventually agreed to thoracic CT which showed that aneurysm had increased to 4.3 mg -December:? Patient had a severely ingrown toenail which required surgical extraction -January: Patient diagnosed with macular degeneration is right eye -over these months patient has been eating less and less, saying that he had little appetite, did not like the smell of meat and has lost 20 or more lb -March: on Monday patient had bloody stool; 1st bowel movement in a week On Monday patient suddenly had chest pain and subsequent retching after drinking any fluid or eating anything On 02:30 patient went to [facility] ED, blood labs were drawn but no imaging or or labs; no fluid; long wait prompted patient to return home but he then came to [place] ED where he got IV fluid HOSPITAL COURSE: .03/19 meeting w/ parents; pt anxious, lamenting that nothing can be done for him, just let him go...asking his parents to just leave him somewhere...Enterprise Account Executive asked where the side of the road? and he says yes. He denies any SI and laments i want to drink i want to eat...i just can't...i can't explain it.. but goes on to repeat that nothing can be done for him.? Patient refuses to believe that loan underwriter has seeing other patients who could not eat or drink, saying that this is a unique situation.? Enterprise Account Executive and parents together tried to encourage patient to take another Ativan under his tongue, which helped yesterday however he refused and kept saying it will not help... there is no point (after patient took Ativan under his tongue he was much more reasonable and able to engage with loan underwriter and agreed that perhaps he could be helped; at that time he agreed to KUB, barium swallow and thoracic CT-each intervention was explained to patient.? Patient got the KUB but was worried about the CT and eventually refused CT).? Patient refused an IV fluids for the same reason saying it is not going to help. Patient has a thoracic aneurysm and has not been taking his metoprolol or amlodipine saying he is unable to swallow.? Enterprise Account Executive discussed with patient who understands the need for these medications for his thoracic aneurysm however He refuses IV metoprolol saying it's not going to help...? Nothing is going to help....? You can not fix me.... -patient reported that he did make urine today, that it was brown and bubbly Enterprise Account Executive, Patient and mother and father discussed healthcare proxy and patient was initially ambivalent.? Enterprise Account Executive explained the details of healthcare proxy;? patient asked appropriate questions and expressed he understood and said he trusts his parents and that they are great. Patient signed healthcare proxy designating his mother and than his father as alternate. Discussed case with Hospitalist Dr. Hernandez, Dr. Law (GI) and oleo hasher and renderer Dr. Serrano -Barrium swallow on hold to first r/o obstruction (per amrik Lwa) with KUB -KUB ordered (per Dr. Law): unremarkable -CT chest/angio/aortic ordered with IV contrast to r/o worsening thoracic a neurysm (per dr. Serrano-though considers this unlikely); pt refused -fleet enema ordered: refused 03/20 Patient remains delusional 03/21 Remains delusoinal. He was able to drink some, small amount of fluid; refused IV; again discussed w/ patient consequences of refusal but he maintains that it won't help anyway. 03/22 seems more depressed today and does not respond with anxious lament when approached with questions.? Remains delusional and refuses IV or any kind of medication or treatment.? He seems to agree to continue allowing lab work for monitoring kidney functions. -potassium mildly low today -BUN/creatinine WNL 03/23 patient remains with paranoid delusional thinking regarding his physical health.? He is trying to eat and drink and has been able to keep of food and fluids down.? He continues to refuse medication of any kind, including medications prescribed by oleo hasher and renderer to prevent thoracic aneurysm from worsening.? Both patient's parents/healthcare proxy want him to take medications including metoprolol and amlodipine. -lytes: WNL -BUN creatinine: WNL -patient is taking in enough fluid that his kidney function remains intact and at this time patient appears stable without IV fluids -he refuses IV for fluids, refuses thoracic CT, refuses barium swallow, refuses Fleet enema, refuses occult stool test; intermittently refuses labs; refuses all medication including IM and SL); thus far he has allowed labwork to monitor for kidney function.? Patient's anxiety is chronic but has reached a psychotic level and patient does not have the capacity to make medical decisions for himself. Patient has a detailed history of seeking treatment for his ailments. However, now he is disorganized; he says he wants to eat and drink, does not want to ...wants to live, does not want to damage his kidneys... however he refuses nearly all?treatments/interventions. -loan underwriter has discussed case w/ hospitalist and TRESSA 03/24 Patient remains delusional and despondent.? He says he is not good and continues to say I do not know what I am going to do I am just lost. Enterprise Account Executive discussed reasons to try medications to which patient says it makes sense however he follows up with I just do not know......i'm in bad shape... the only thing I know is that there are no solutions..? I am certain about... Enterprise Account Executive later met with patient again while his parents were visiting; patient's parents are urged him to try medications that loan underwriter is offering however patient adamantly refuses.? He tried to help loan underwriter and family understand by saying I do not want to , I just know there is not a chance.? It is the only thing left that I do know. ? Family discussion about healthcare proxy and involuntary commitment which patient understands. -Lytes: WNL -BUN/creatinine: WNL -Patient making urine -Patient drank about 2 cups of water by miday and drank and orange juice box; also ate a fruit cup and a tangerine -given labs and fluid intake, patient appears stable without IV fluids 03/25/2022 Patient remains anxious despondent to me a appears to be psychotically depressed somatically delusional and on able to take in information or explain his self cyst drug active and potentially life-threatening behavior if he markedly limits food and fluids based on no rational explanation.? Refusing medical workup.? Patient has upcoming court hearing for retention and treatment plan.? Try to develop therapeutic [place] encourage labs every other day monitor food and fluid intake may intermittently need IV fluids If patient remains acute may benefit from ECT treatment which would have a more acute impact potentially 03/29/22 pt Involuntarily committed with substituted judgment for medication.? Enterprise Account Executive discussed this with patient who said nothing is going to help 03/30 patient starting on Zyprexa; unable to believe he can take it p.o. or SL so given IM.? Patient very anxious, does not think anything will help 03/31 Remains delusional; Only Drinking when prompted to do so. Patient agrees there is no chest pain when eating or drinking and that doing so does not make him retch/vomit.? However he continues to assert that he can not drink even when he does so in front of loan underwriter.? Creatinine bumped up today.? Still within normal limits; Will check daily 04/01 remains delusional; no insight poor judgment; clearly mentally tortured by paranoid delusion. Needs constant prompting to drink; passively allows oral care. Case discussed with Dr. Pérez who agrees with current treatment plan -tachycardic; kidney function still within normal limits; mildly hypernatremic, likely from dehydration; will order CPK for tomorrow although no BRETT 04/02/22 remains with delusional sx. accepted PO meds today. Team is strongly encouraging food and fluids. Responds to consistent encouragement. Met with pt and mother, then parents after their visit. 04/03/22: Continue current plan. 04/04/22: Daily labs and monitoring. Consider possibly decreasing Lorazepam as it may be activating depressive sx. 04/05/22: Patient remains delusional, depressed and anxious; however he is eating and drinking adequately without prompting and lab work remains within normal limits. Patient is also little more communicative. Will start Prozac for anxiety/depression and OCD like symptoms; Prozac is also often used in combination with Zyprexa for treatment of depression. 04/06 continued somatic delusional worries; however continues to eat and drink adequately. Will give medications another day or so and then consider increasing doses 04/08 no change; continues to eat and drink adequately. Kidney function and lytes within normal limits however mildly increased ALT, possibly due to Prozac. Will increase, however will monitor. Choosing to increase Prozac since patient's illness is primarily anxiety though he also has a psychotic depression. Prozac has less side effect risks in general. 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 Symptoms likley formally subdued with alcohol abuse Patient has hx of anxiety started in childhood.? However has functioned in the community with almost no history of psychiatric meds/therapy. No hx of any psychosis or lyn.? 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 Starting this summer patient has undergone a series of stressful events (sisters cancer dx; patients own illness) triggering excessive worry and he's been going to the ED for psychosomatic complaints (along with organic ones); he has become unable to function, along worse, does not drive, not attending to ADLs. His parents agree that given patient's baseline anxiety, all these events combined into overwhelming anxiety and and tipped scales for him decompensate leading to this admission.? Patient is not manic; though he has paranoid, somatic delusions, he has no known history of psychotic illness. Pt's MACIEL/Somatic delusional worries (and possibly OCD) about his organic medical illness have become delusional making it difficult to ascertain what is going on and whether there is an organic component to his complaint that he cannot keep down food or water. Patient has no insight that he has delusional thoughts (he had 1 fleeting moment of insight after Ativan lowered anxiety). Although he can understand possible concerns/consequences of refusing treatment (such risks of worsening kidney function,which he does not want and so he eventually consents to getting blood draws to monitor) his paranoid delusional thinking makes him think all treatments are useless, won't help him and that his situation is hopeless. He is unaware the role his anxiety plays in confounding his thinking, insisting nothing will help, even when some of his complaints could be resolved with something as simple as an enema. Now taking medications, patient is eating and drinking adequately without need for prompting. He remains delusional and depressed. PLAN: Section [employer]b, involuntarily Civilly committed on 03/29.? q15min checks.? Signed HCP on 03/19/22 -INVOKE HCP: HCP's notified. Patient has paranoid delusions that severely impair his judgment and insight and he is not able to make medical decisions for himself; he is denying treatments that he would normally accept.? Healthcare proxies both informed.? They want patient to get IV fluids, take amlodipine and metoprolol, continue to get lab work and engage in treatment.? Patient refuses fluids, amlodipine, metoprolol or other treatments. -Affirmation of HCP scheduled for 04/08/22;? HCP cannot yet direct tx until affirmed -Healthcare proxies are patient's parents: both want him to have any intervention needed want patient to take Metoprolol/amlodipne for thoracic aneurysm A.?OCD/MACIEL/paranoid delusion/somatic disorder?(hx severe anxiety since childhood; coped w/ Etoh abuse; sober 1 yr) -Patient is severely anxious with delusions that someting is very wrong with him that cannot be understood or treated; he has a history of seeking treatment for medical illness and if thinking clearly, would do so now. -He does not want to or harm his body, however he is convinced it Is hopeless.? -continue Zyprexa/Zydis 10mg daily:? COURT ORDERED; IF REFUSES GIVE IM ZYPREXA (discussed risks/benefits of this medication and antipsychotics to HCP's) -continue Ativan 1 mg t.i.d.; patient is noticeably more interactive after Ativan -increase to Prozac 20 mg daily for anxiety/depression and OCD like symptoms B.?Minimal PO intake fluid/food: resolved:?psychogenic origin (KUB negative; refused barium swallow); initially not drinking or eating -now eating and drinking daily, even without prompting -making urine daily -monitor Bun/Cr and Lytes which thus far remain WNL *as long as he continues to drink fluids, it looks like his kidney function remains stable.? -Ordered oral hygiene care t.i.d. with chlorhexidine mouthwash; likely dc -if patient reverts back to refusal to drink, continue to evaluate kidney function. May need to consider IV fluids, to avert risk of severe and/or permanent kidney damage. -currently Patient is still making urine and labs reveal kidney function remains WNL -Will continue to assess dehydration however?without fluids patient will at some point risks severe and even permanent kidney damage. -loan underwriter has discussed case with both Psychiatric Director Dr. Pérez and several hospitalists (listed throughout) -will continue to monitor labs as pt allows -Monitor for clinical signs of dehydration: Dry mucus membranes; Skin turgor, drop in blood pressure/reflex tachycardia; sunken eyes will monitor BMP will monitor for clinical signs of dehydration will monitor PO intake and if making urine C.?Thoracic aneurysm: Patient now taking metoprolol and amlodipine daily consulted with Calculating Machine Mechanic Dr. Pennington and appreciate recommendations above -initially Pt refuses to allow CT to Assess thoracic aneurysm (last assessed Nov 2021 at 4.3cm; however while he initially c/o of ?sudden onset of substernal upper abdominal pain on eating/drinking, this complaint has resolved making this no longer a concern) Patient educated on: diagnosis and medication risk/benefits Informed Consent: understands, does not understand and further education needed Reason for contiued inpatient stay Substantial Risk for: inability to function Time Spent With Patient Time: Total time managing care of this patient today ____ minutes.
[2022-04-09 05:00] VITALS: BP 110/65; PULSE 80; TEMP 36.8; O2SAT 97
[2022-04-09] MEDS: LORazepam 1 MG TABLET PO ×3 (08:57→20:50)
[2022-04-09] MEDS: FLUoxetine HCl 20 MG CAPSULE PO (08:57)
[2022-04-09] MEDS: OLANZapine ODT 10 MG TAB.RAPDIS TRANSLINGU (08:58)
[2022-04-09] MEDS: amLODIPine Besylate 5 MG TABLET PO (08:58)
[2022-04-09] MEDS: Metoprolol Succinate ER 25 MG TAB.ER.24H PO (08:58)
--- NOTE | 2022-04-09 10:30 | HO.PSYCHPN ---
Subjective Subjective Date of Service: 04/09/22 Reason For Visit: psychosis, delusions of persecution, SI Interim History: Patient remains despondent, not talking very much unless pushed to do so, barely attending to ADLs and only when prompted; patient agreed to walk the hallway up and down 3 times a day otherwise he would need to get Lovenox injections for DVT prophylaxis. Mental Status Exam Mental Status Exam Narrative: Pt is alert and oriented; behavior is depressed, lying on bed, hardly moving hardly talking; dressed in casual attire with scruffy facial hair, disheveled, malodorous; mood is described as depressed and anxious; affect both depressed/ despondent and worried with furrowed brow; minimal eye contact appropriate; Speech is is sparse but when he talks normal rate, volume and prosody and not pressured; psychomotor retardation present; thought process is goal directed; Thought content is on physical ailments, hopelessness and psychosomatic delusional worries; denies any SI/HI. There is no evidence of perceptual disturbance. Patients insight and judgment are impaired Diagnostics Vital Signs (24Hr): Vital Signs - 24 hr 04/08/22 17:10 04/09/22 05:00 Temperature 98.5 F 98.3 F Pulse Rate 79 80 Blood Pressure 106/55 L 110/65 Pulse Oximetry 97 BMI result Body Mass Index 47.3 Labs 03/17/22 14:30 04/08/22 08:09 Labs: Laboratory Results - last 48 hr 04/08/22 08:09 Sodium 141 Potassium 3.3 Chloride 106 Carbon Dioxide 26 Anion Gap 12 BUN 12 Creatinine 0.76 Estim Creat Clear Calc 130.6 Estimated GFR > 60 Random Glucose 91 Calcium 9.0 Total Bilirubin 0.4 AST 43 H ALT 91 H Alkaline Phosphatase 45 Total Protein 5.5 L Albumin 3.3 L Imaging Radiology Impressions: ITS Impressions KUB X-Ray 03/18/22 16:35 IMPRESSION: Unremarkable examination. Medications Medications Current Medications Acetaminophen (Acetaminophen 325 Mg Tablet) 650 mg PO Q6H PRN PRN Reason: Headache/Pain Mild Scale (1-3) Al Hydroxide/Mg Hydroxide (Magnesium Hydrox/Alum Hydrox 30 Ml Oral.Susp) 30 ml PO Q6H PRN PRN Reason: Heartburn/Nausea Amlodipine Besylate (Amlodipine Besylate 5 Mg Tablet) 5 mg PO DAILY [facility]; Protocol Last Admin: 04/09/22 08:58 Dose: 5 mg Fluoxetine HCl (Fluoxetine Hcl 20 Mg Capsule) 20 mg PO DAILY [facility] Last Admin: 04/09/22 08:57 Dose: 20 mg Lorazepam (Lorazepam 1 Mg Tablet) 1 mg PO Q4H PRN PRN Reason: Anxiety Lorazepam (Lorazepam 1 Mg Tablet) 1 mg PO TID [facility] Last Admin: 04/09/22 08:57 Dose: 1 mg Lorazepam (Lorazepam 2 Mg/Ml Vial) 1 mg IM TID PRN PRN Reason: If refuses PO Magnesium Hydroxide (Milk Of Magnesia 30 Ml Oral.Susp) 30 ml PO DAILY PRN PRN Reason: Constipation Metoprolol Succinate (Metoprolol Succinate Er 25 Mg Tab.Er.24h) 25 mg PO DAILY [facility]; Protocol Last Admin: 04/09/22 08:58 Dose: 25 mg Olanzapine (Olanzapine 10 Mg Vial) 10 mg IM DAILY PRN PRN Reason: if refuses PO Last Admin: 04/01/22 11:32 Dose: 10 mg Olanzapine (Olanzapine Odt 10 Mg Tab.Rapdis) 10 mg TRANSLINGU DAILY [facility] Last Admin: 04/09/22 08:58 Dose: 10 mg Polyethylene Glycol (Polyethylene Glycol 3350 17 Gm Powd.Pack) 17 gm PO DAILY PRN PRN Reason: constipation Sodium Biphosphate/Sodium Phosphate (Sodium Phosphate,[place]-Dibasic 133 Ml Enema) 133 ml AL ONCE PRN PRN Reason: Constipation Trazodone HCl (Trazodone Hcl 50 Mg Tablet) 50 mg PO BEDTIME PRN PRN Reason: Insomnia Allergies Allergies Allergy/AdvReac Type Severity Reaction Status Date / Time No Known Allergies Allergy Verified 03/17/22 16:59 Assessment & Plan Assessment & Plan (1) Thoracic aortic aneurysm: Status: Acute Code(s): I71.20 - Thoracic aortic aneurysm, without rupture, unspecified Assessment and Plan: Known chronic thoracic aortic aneurysm without any acute symptoms. This is a chronic condition and there is no acute due to this lesion. It needs to be treated in the long run with medications such as metoprolol and other antihypertensive is a blood pressure remains elevated on metoprolol therapy to reduce she was stressed on the aorta. However is not having any acute symptoms at this point in time. Risk of rupture is very low in mild thoracic aortic aneurysm. His refusal of taking medication appears to be due to lack of understanding as well as his psychiatric condition that prevents him from processing the information. I would concentrate on treating his psychiatric condition so as to then eventually able to understand the need for taking medications. In the long run he will need to be followed as an outpatient by her sharepoint application developer that he was following before. If he has intermittent hypertensive episode which again seems to be driven by acute anxiety, would consider treating the anxiety disorder. Can use metoprolol intramuscularly if needed for acute hypertension. Although patient is currently refusing taking his medication and focus should be try to make him understand to take his medications. There is no relation should between thoracic aortic aneurysm and QT prolongation. Use of psychoactive medication as needed can be used and I do not see any clear contraindication, his EKG done on admission shows normal QTC interval. Usual precautions for QT prolongation with avoidance of other QT prolonging drugs and maintaining electrolytes especially magnesium and potassium in normal range. Also can check QTC interval after initiating psychoactive medications at a known to prolong QT interval. Will follow up if need be. Plan HPI: pt is a 46 yo male with long hx of anxiety, thoracic aneurysm (dx Nov 2021) who presents for severe anxiety in face of difficulty eating/drinking since this past monday. Pt is accompanied by his mother.? -Pt reports that this past monday he stopped being able to eat or drink since it caused pain (pointing to area just below his xiphoid process) and wretching. -hx of severe anxiety -but no hx of psychosis; no hx lyn Patient's parents review timeline events leading up to this admission: Prior to this summer, patient was overall doing fine, worked, drove his car and for the past 2 years had no obvious problems.? Parents agree that patient is drinking likely kept his anxiety down to some degree -September:? sister got diagnosed with melanoma very upsetting for patient -September:? patient had painless hematuria, cystoscopy did have a finding but it was benign -November:? About 4 years ago patient was diagnosed with thoracic aneurysm however he has not followed up.? This past summer he was going to the emergency room multiple times for various problems and eventually agreed to thoracic CT which showed that aneurysm had increased to 4.3 mg -December:? Patient had a severely ingrown toenail which required surgical extraction -January: Patient diagnosed with macular degeneration is right eye -over these months patient has been eating less and less, saying that he had little appetite, did not like the smell of meat and has lost 20 or more lb -March: on Monday patient had bloody stool; 1st bowel movement in a week On Monday patient suddenly had chest pain and subsequent retching after drinking any fluid or eating anything On 02:30 patient went to [facility] ED, blood labs were drawn but no imaging or or labs; no fluid; long wait prompted patient to return home but he then came to [place] ED where he got IV fluid HOSPITAL COURSE: .03/19 meeting w/ parents; pt anxious, lamenting that nothing can be done for him, just let him go...asking his parents to just leave him somewhere...Enterprise Data Architect asked where the side of the road? and he says yes. He denies any SI and laments i want to drink i want to eat...i just can't...i can't explain it.. but goes on to repeat that nothing can be done for him.? Patient refuses to believe that insurance writer has seeing other patients who could not eat or drink, saying that this is a unique situation.? Enterprise Data Architect and parents together tried to encourage patient to take another Ativan under his tongue, which helped yesterday however he refused and kept saying it will not help... there is no point (after patient took Ativan under his tongue he was much more reasonable and able to engage with insurance writer and agreed that perhaps he could be helped; at that time he agreed to KUB, barium swallow and thoracic CT-each intervention was explained to patient.? Patient got the KUB but was worried about the CT and eventually refused CT).? Patient refused an IV fluids for the same reason saying it is not going to help. Patient has a thoracic aneurysm and has not been taking his metoprolol or amlodipine saying he is unable to swallow.? Enterprise Data Architect discussed with patient who understands the need for these medications for his thoracic aneurysm however He refuses IV metoprolol saying it's not going to help...? Nothing is going to help....? You can not fix me.... -patient reported that he did make urine today, that it was brown and bubbly Enterprise Data Architect, Patient and mother and father discussed healthcare proxy and patient was initially ambivalent.? Enterprise Data Architect explained the details of healthcare proxy;? patient asked appropriate questions and expressed he understood and said he trusts his parents and that they are great. Patient signed healthcare proxy designating his mother and than his father as alternate. Discussed case with Hospitalist Dr. Hernandez, Dr. Law (GI) and sharepoint application developer Dr. Serrano -Barrium swallow on hold to first r/o obstruction (per amrik Law) with KUB -KUB ordered (per Dr. Law): unremarkable -CT chest/angio/aortic ordered with IV contrast to r/o worsening thoracic aneurysm (per dr. Serrano-though considers this unlikely); pt refused -fleet enema ordered: refused 03/20 Patient remains delusional 03/21 Remains delusoinal. He was able to drink some, small amount of fluid; refused IV; again discussed w/ patient consequences of refusal but he maintains that it won't help anyway. 03/22 seems more depressed today and does not respond with anxious lament when approached with questions.? Remains delusional and refuses IV or any kind of medication or treatment.? He seems to agree to continue allowing lab work for monitoring kidney functions. -potassium mildly low today -BUN/creatinine WNL 03/23 patient remains with paranoid delusional thinking regarding his physical health.? He is trying to eat and drink and has been able to keep of food and fluids down.? He continues to refuse medication of any kind, including medications prescribed by sharepoint application developer to prevent thoracic aneurysm from worsening.? Both patient's parents/healthcare proxy want him to take medications including metoprolol and amlodipine. -lytes: WNL -BUN creatinine: WNL -patient is taking in enough fluid that his kidney function remains intact and at this time patient appears stable without IV fluids -he refuses IV for fluids, refuses thoracic CT, refuses barium swallow, refuses Fleet enema, refuses occult stool test; intermittently refuses labs; refuses all medication including IM and SL); thus far he has allowed labwork to monitor for kidney function.? Patient's anxiety is chronic but has reached a psychotic level and patient does not have the capacity to make medical decisions for himself. Patient has a detailed history of seeking treatment for his ailments. However, now he is disorganized; he says he wants to eat and drink, does not want to ...wants to live, does not want to damage his kidneys... however he refuses nearly all?treatments/interventions. -insurance writer has discussed case w/ hospitalist and TRESSA 03/24 Patient remains delusional and despondent.? He says he is not good and continues to say I do not know what I am going to do I am just lost. Enterprise Data Architect discussed reasons to try medications to which patient says it makes sense however he follows up with I just do not know......i'm in bad shape... the only thing I know is that there are no solutions..? I am certain about... Enterprise Data Architect later met with patient again while his parents were visiting; patient's parents are urged him to try medications that insurance writer is offering however patient adamantly refuses.? He tried to help insurance writer and family understand by saying I do not want to , I just know there is not a chance.? It is the only thing left that I do know. ? Family discussion about healthcare proxy and involuntary commitment which patient understands. -Lytes: WNL -BUN/creatinine: WNL -Patient making urine -Patient drank about 2 cups of water by miday and drank and orange juice box; also ate a fruit cup and a tangerine -given labs and fluid intake, patient appears stable without IV fluids 03/25/2022 Patient remains anxious despondent to me a appears to be psychotically depressed somatically delusional and on able to take in information or explain his self cyst drug active and potentially life-threatening behavior if he markedly limits food and fluids based on no rational explanation.? Refusing medical workup.? Patient has upcoming court hearing for retention and treatment plan.? Try to develop therapeutic [place] encourage labs every other day monitor food and fluid intake may intermittently need IV fluids If patient remains acute may benefit from ECT treatment which would have a more acute impact potentially 03/29/22 pt Involuntarily committed with substituted judgment for medication.? Enterprise Data Architect discussed this with patient who said nothing is going to help 03/30 patient starting on Zyprexa; unable to believe he can take it p.o. or SL so given IM.? Patient very anxious, does not think anything will help 03/31 Remains delusional; Only Drinking when prompted to do so. Patient agrees there is no chest pain when eating or drinking and that doing so does not make him retch/vomit.? However he continues to assert that he can not drink even when he does so in front of insurance writer.? Creatinine bumped up today.? Still within normal limits; Will check daily 04/01 remains delusional; no insight poor judgment; clearly mentally tortured by paranoid delusion. Needs constant prompting to drink; passively allows oral care. Case discussed with Dr. Pérez who agrees with current treatment plan -tachycardic; kidney function still within normal limits; mildly hypernatremic, likely from dehydration; will order CPK for tomorrow although no BRETT 04/02/22 remains with delusional sx. accepted PO meds today. Team is strongly encouraging food and fluids. Responds to consistent encouragement. Met with pt and mother, then parents after their visit. 04/03/22: Continue current plan. 04/04/22: Daily labs and monitoring. Consider possibly decreasing Lorazepam as it may be activating depressive sx. 04/05/22: Patient remains delusional, depressed and anxious; however he is eating and drinking adequately without prompting and lab work remains within normal limits. Patient is also little more communicative. Will start Prozac for anxiety/depression and OCD like symptoms; Prozac is also often used in combination with Zyprexa for treatment of depression. 04/06 continued somatic delusional worries; however continues to eat and drink adequately. Will give medications another day or so and then consider increasing doses 04/08 no change; continues to eat and drink adequately. Kidney function and lytes within normal limits however mildly increased ALT, possibly due to Prozac. Will increase, however will monitor. Choosing to increase Prozac since patient's illness is primarily anxiety though he also has a psychotic depression. Prozac has less side effect risks in general. That said may also eventually increase Zyprexa 04/09 remains psychotically depressed, with pronounced negative symptoms. 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 Symptoms likley formally subdued with alcohol abuse Patient has hx of anxiety started in childhood.? However has functioned in the community with almost no history of psychiatric meds/therapy. No hx of any psychosis or lyn.? 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 Starting this summer patient has undergone a series of stressful events (sisters cancer dx; patients own illness) triggering excessive worry and he's been going to the ED for psychosomatic complaints (along with organic ones); he has become unable to function, along worse, does not drive, not attending to ADLs. His parents agree that given patient's baseline anxiety, all these events combined into overwhelming anxiety and and tipped scales for him decompensate leading to this admission.? Patient is not manic; though he has paranoid, somatic delusions, he has no known history of psychotic illness. Pt's MACIEL/Somatic delusional worries (and possibly OCD) about his organic medical illness have become delusional making it difficult to ascertain what is going on and whether there is an organic component to his complaint that he cannot keep down food or water. Patient has no insight that he has delusional thoughts (he had 1 fleeting moment of insight after Ativan lowered anxiety). Although he can understand possible concerns/consequences of refusing treatment (such risks of worsening kidney function,which he does not want and so he eventually consents to getting blood draws to monitor) his paranoid delusional thinking makes him think all treatments are useless, won't help him and that his situation is hopeless. He is unaware the role his anxiety plays in confounding his thinking, insisting nothing will help, even when some of his complaints could be resolved with something as simple as an enema. Now taking medications, patient is eating and drinking adequately without need for prompting. He remains delusional and depressed. PLAN: Section 8b, involuntarily Civilly committed on 03/29.? q15min checks.? Signed HCP on 03/19/22 -COURT AFFIRMED HCP (04/08/2022): HCP's notified: Healthcare proxy invoked and now affirmed by the court. Healthcare proxies are 1st, patient's mother Le and then 2nd his father Luke. A.?OCD/MACIEL/paranoid delusion/somatic disorder?(hx severe anxiety since childhood; coped w/ Etoh abuse; sober 1 yr) -Patient is severely anxious with delusions that someting is very wrong with him that cannot be understood or treated; he has a history of seeking treatment for medical illness and if thinking clearly, would do so now. -He does not want to or harm his body, however he is convinced it Is hopeless.? -continue Zyprexa/Zydis 10mg daily:? COURT ORDERED; IF REFUSES GIVE IM ZYPREXA (discussed risks/benefits of this medication and antipsychotics to HCP's) -continue Ativan 1 mg t.i.d.; patient is noticeably more interactive after Ativan -increase to Prozac 20 mg daily for anxiety/depression and OCD like symptoms B.?Minimal PO intake fluid/food: resolved:?psychogenic origin (KUB negative; refused barium swallow); initially not drinking or eating -now eating and drinking daily, even without prompting -making urine daily -monitor Bun/Cr and Lytes which thus far remain WNL *as long as he continues to drink fluids, it looks like his kidney function remains stable.? -Ordered oral hygiene care t.i.d. with chlorhexidine mouthwash -if patient reverts back to refusal to drink, continue to evaluate kidney function. May need to consider IV fluids, to avert risk of severe and/or permanent kidney damage. -currently Patient is still making urine and labs reveal kidney function remains WNL -Will continue to assess dehydration however?without fluids patient will at some point risks severe and even permanent kidney damage. -insurance writer has discussed case with both Psychiatric Director Dr. Pérez and several hospitalists (listed throughout) -will continue to monitor labs as pt allows -Monitor for clinical signs of dehydration: Dry mucus membranes; Skin turgor, drop in blood pressure/reflex tachycardia; sunken eyes will monitor BMP will monitor for clinical signs of dehydration will monitor PO intake and if making urine C.?Thoracic aneurysm: Patient now taking metoprolol and amlodipine daily consulted with Template Checker Dr. Pennington and appreciate recommendations above -initially Pt refuses to allow CT to Assess thoracic aneurysm (last assessed Nov 2021 at 4.3cm; however while he initially c/o of ?sudden onset of substernal upper abdominal pain on eating/drinking, this complaint has resolved making this no longer a concern) Patient educated on: diagnosis, medication risk/benefits and medical condition Informed Consent: understands, does not understand and further education needed Reason for contiued inpatient stay Substantial Risk for: inability to function Time Spent With Patient Time: Total time managing care of this patient today ____ minutes.
[2022-04-09 21:08] VITALS: BP 97/60; PULSE 75; RESP 16; TEMP 36.3
[2022-04-10] MEDS: amLODIPine Besylate 5 MG TABLET PO (09:40)
[2022-04-10] MEDS: OLANZapine ODT 10 MG TAB.RAPDIS TRANSLINGU (09:40)
[2022-04-10] MEDS: LORazepam 1 MG TABLET PO ×3 (09:40→20:47)
[2022-04-10] MEDS: FLUoxetine HCl 20 MG CAPSULE PO (09:40)
[2022-04-10] MEDS: Metoprolol Succinate ER 25 MG TAB.ER.24H PO (09:41)
[2022-04-10 10:43] VITALS: BP 107/57; PULSE 75; RESP 16; TEMP 36.7; O2SAT 96
--- NOTE | 2022-04-10 10:46 | HO.PSYCHPN ---
Subjective Subjective Date of Service: 04/10/22 Reason For Visit: psychosis, delusions of persecution, SI Interim History: little more conversational today. Walked ahn 4x today,, needed some prompting but readily complied. Pt asked what he would need to do for discharge and fha underwriter discussed patient engaging in regular activities of daily living like he regularly would in the community, like bathing, changing cloths, brushing his teeth. Patient said he's not sure he can do that...though fha underwriter encouraged him that he's already doing more than he thought he could discussed illness and pt remains w/out insight fha underwriter talked w/ both parents who are also healthcare proxies; discussed treatment and they agree patient is doing a little better but that he remains delusional. Mental Status Exam Mental Status Exam Narrative: Pt is alert and oriented; behavior is depressed, lying on bed; little easier with which to engage; in casual attire, dirty cloths with scruffy facial hair, disheveled, malodorous; mood is described as depressed and anxious; affect both depressed; improved eye contact; Speech is normal rate, volume and prosody and not pressured; psychomotor retardation present; thought process is goal directed; Thought content is on physical ailments, hopelessness and psychosomatic delusional worries; denies any SI/HI. There is no evidence of perceptual disturbance. Patients insight and judgment are impaired Diagnostics Vital Signs (24Hr): Vital Signs - 24 hr 04/09/22 21:08 04/10/22 10:43 Temperature 97.3 F 98.1 F Pulse Rate 75 75 Respiratory Rate 16 16 Blood Pressure 97/60 107/57 L Pulse Oximetry 96 Oxygen Delivery Method Room Air BMI result Body Mass Index 47.3 Labs 03/17/22 14:30 04/08/22 08:09 Imaging Radiology Impressions: ITS Impressions KUB X-Ray 03/18/22 16:35 IMPRESSION: Unremarkable examination. Medications Medications Current Medications Acetaminophen (Acetaminophen 325 Mg Tablet) 650 mg PO Q6H PRN PRN Reason: Headache/Pain Mild Scale (1-3) Al Hydroxide/Mg Hydroxide (Magnesium Hydrox/Alum Hydrox 30 Ml Oral.Susp) 30 ml PO Q6H PRN PRN Reason: Heartburn/Nausea Amlodipine Besylate (Amlodipine Besylate 5 Mg Tablet) 5 mg PO DAILY [place]; Protocol Last Admin: 04/10/22 09:40 Dose: 5 mg Fluoxetine HCl (Fluoxetine Hcl 20 Mg Capsule) 20 mg PO DAILY [facility] Last Admin: 04/10/22 09:40 Dose: 20 mg Lorazepam (Lorazepam 1 Mg Tablet) 1 mg PO Q4H PRN PRN Reason: Anxiety Lorazepam (Lorazepam 1 Mg Tablet) 1 mg PO TID [facility] Last Admin: 04/10/22 09:40 Dose: 1 mg Lorazepam (Lorazepam 2 Mg/Ml Vial) 1 mg IM TID PRN PRN Reason: If refuses PO Magnesium Hydroxide (Milk Of Magnesia 30 Ml Oral.Susp) 30 ml PO DAILY PRN PRN Reason: Constipation Metoprolol Succinate (Metoprolol Succinate Er 25 Mg Tab.Er.24h) 25 mg PO DAILY [facility]; Protocol Last Admin: 04/10/22 09:41 Dose: 25 mg Olanzapine (Olanzapine 10 Mg Vial) 10 mg IM DAILY PRN PRN Reason: if refuses PO Last Admin: 04/01/22 11:32 Dose: 10 mg Olanzapine (Olanzapine Odt 10 Mg Tab.Rapdis) 10 mg TRANSLINGU DAILY [facility] Last Admin: 04/10/22 09:40 Dose: 10 mg Polyethylene Glycol (Polyethylene Glycol 3350 17 Gm Powd.Pack) 17 gm PO DAILY PRN PRN Reason: constipation Sodium Biphosphate/Sodium Phosphate (Sodium Phosphate,Avery-Dibasic 133 Ml Enema) 133 ml [place] ONCE PRN PRN Reason: Constipation Trazodone HCl (Trazodone Hcl 50 Mg Tablet) 50 mg PO BEDTIME PRN PRN Reason: Insomnia Allergies Allergies Allergy/AdvReac Type Severity Reaction Status Date / Time No Known Allergies Allergy Verified 03/17/22 16:59 Assessment & Plan Assessment & Plan (1) Thoracic aortic aneurysm: Status: Acute Code(s): I71.20 - Thoracic aortic aneurysm, without rupture, unspecified Assessment and Plan: Known chronic thoracic aortic aneurysm without any acute symptoms. This is a chronic condition and there is no acute due to this lesion. It needs to be treated in the long run with medications such as metoprolol and other antihypertensive is a blood pressure remains elevated on metoprolol therapy to reduce she was stressed on the aorta. However is not having any acute symptoms at this point in time. Risk of rupture is very low in mild thoracic aortic aneurysm. His refusal of taking medication appears to be due to lack of understanding as well as his psychiatric condition that prevents him from processing the information. I would concentrate on treating his psychiatric condition so as to then eventually able to understand the need for taking medications. In the long run he will need to be followed as an outpatient by her denture contour wire specialist that he was following before. If he has intermittent hypertensive episode which again seems to be driven by acute anxiety, would consider treating the anxiety disorder. Can use metoprolol intramuscularly if needed for acute hypertension. Although patient is currently refusing taking his medication and focus should be try to make him understand to take his medications. There is no relation should between thoracic aortic aneurysm and QT prolongation. Use of psychoactive medication as needed can be used and I do not see any clear contraindication, his EKG done on admission shows normal QTC interval. Usual precautions for QT prolongation with avoidance of other QT prolonging drugs and maintaining electrolytes especially magnesium and potassium in normal range. Also can check QTC interval after initiating psychoactive medications at a known to prolong QT interval. Will follow up if need be. Plan HPI: pt is a 46 yo male with long hx of anxiety, thoracic aneurysm (dx Nov 2021) who presents for severe anxiety in face of difficulty eating/drinking since this past monday. Pt is accompanied by his mother.? -Pt reports that this past monday he stopped being able to eat or drink since it caused pain (pointing to area just below his xiphoid process) and wretching. -hx of severe anxiety -but no hx of psychosis; no hx lyn Patient's parents review timeline events leading up to this admission: Prior to this summer, patient was overall doing fine, worked, drove his car and for the past 2 years had no obvious problems.? Parents agree that patient is drinking likely kept his anxiety down to some degree -September:? sister got diagnosed with melanoma very upsetting for patient -September:? patient had painless hematuria, cystoscopy did have a finding but it was benign -November:? About 4 years ago patient was diagnosed with thoracic aneurysm however he has not followed up.? This past summer he was going to the emergency room multiple times for various problems and eventually agreed to thoracic CT which showed that aneurysm had increased to 4.3 mg -December:? Patient had a severely ingrown toenail which required surgical extraction -January: Patient diagnosed with macular degeneration is right eye -over these months patient has been eating less and less, saying that he had little appetite, did not like the smell of meat and has lost 20 or more lb -March: on Monday patient had bloody stool; 1st bowel movement in a week On Monday patient suddenly had chest pain and subsequent retching after drinking any fluid or eating anything On 02:30 patient went to [facility] ED, blood labs were drawn but no imaging or or labs; no fluid; long wait prompted patient to return home but he then came to [facility] ED where he got IV fluid HOSPITAL COURSE: .03/19 meeting w/ parents; pt anxious, lamenting that nothing can be done for him, just let him go...asking his parents to just leave him somewhere...Survey Research Associate asked where the side of the road? and he says yes. He denies any SI and laments i want to drink i want to eat...i just can't...i can't explain it.. but goes on to repeat that nothing can be done for him.? Patient refuses to believe that fha underwriter has seeing other patients who could not eat or drink, saying that this is a unique situation.? Survey Research Associate and parents together tried to encourage patient to take another Ativan under his tongue, which helped yesterday however he refused and kept saying it will not help... there is no point (after patient took Ativan under his tongue he was much more reasonable and able to engage with fha underwriter and agreed that perhaps he could be helped; at that time he agreed to KUB, barium swallow and thoracic CT-each intervention was explained to patient.? Patient got the KUB but was worried about the CT and eventually refused CT).? Patient refused an IV fluids for the same reason saying it is not going to help. Patient has a thoracic aneurysm and has not been taking his metoprolol or amlodipine saying he is unable to swallow.? Survey Research Associate discussed with patient who understands the need for these medications for his thoracic aneurysm however He refuses IV metoprolol saying it's not going to help...? Nothing is going to help....? You can not fix me.... -patient reported that he did make urine today, that it was brown and bubbly Survey Research Associate, Patient and mother and father discussed healthcare proxy and patient was initially ambivalent.? Survey Research Associate explained the details of healthcare proxy;? patient asked appropriate questions and expressed he understood and said he trusts his parents and that they are great. Patient signed healthcare proxy designating his mother and than his father as alternate. Discussed case with Hospitalist Dr. Hernandez, Dr. Law (GI) and denture contour wire specialist Dr. Serrano -Barrium swallow on hold to first r/o obstruction (per amrik Law) with KUB -KUB ordered (per Dr. Law): unremarkable -CT chest/angio/aortic ordered with IV contrast to r/o worsening thoracic aneurysm (per dr. Serrano-though considers this unlikely); pt refused -fleet enema ordered: refused 03/20 Patient remains delusional 03/21 Remains delusoinal. He was able to drink some, small amount of fluid; refused IV; again discussed w/ patient consequences of refusal but he maintains that it won't help anyway. 03/22 seems more depressed today and does not respond with anxious lament when approached with questions.? Remains delusional and refuses IV or any kind of medication or treatment.? He seems to agree to continue allowing lab work for monitoring kidney functions. -potassium mildly low today -BUN/creatinine WNL 03/23 patient remains with paranoid delusional thinking regarding his physical health.? He is trying to eat and drink and has been able to keep of food and fluids down.? He continues to refuse medication of any kind, including medications prescribed by denture contour wire specialist to prevent thoracic aneurysm from worsening.? Both patient's parents/healthcare proxy want him to take medications including metoprolol and amlodipine. -lytes: WNL -BUN creatinine: WNL -patient is taking in enough fluid that his kidney function remains intact and at this time patient appears stable without IV fluids -he refuses IV for fluids, refuses thoracic CT, refuses barium swallow, refuses Fleet enema, refuses occult stool test; intermittently refuses labs; refuses all medication including IM and SL); thus far he has allowed labwork to monitor for kidney function.? Patient's anxiety is chronic but has reached a psychotic level and patient does not have the capacity to make medical decisions for himself. Patient has a detailed history of seeking treatment for his ailments. However, now he is disorganized; he says he wants to eat and drink, does not want to ...wants to live, does not want to damage his kidneys... however he refuses nearly all?treatments/interventions. -fha underwriter has discussed case w/ hospitalbill and TR[facility]SA 03/24 Patient remains delusional and despondent.? He says he is not good and continues to say I do not know what I am going to do I am just lost. Survey Research Associate discussed reasons to try medications to which patient says it makes sense however he follows up with I just do not know......i'm in bad shape... the only thing I know is that there are no solutions..? I am certain about... Survey Research Associate later met with patient again while his parents were visiting; patient's parents are urged him to try medications that fha underwriter is offering however patient adamantly refuses.? He tried to help fha underwriter and family understand by saying I do not want to , I just know there is not a chance.? It is the only thing left that I do know. ? Family discussion about healthcare proxy and involuntary commitment which patient understands. -Lytes: WNL -BUN/creatinine: WNL -Patient making urine -Patient drank about 2 cups of water by miday and drank and orange juice box; also ate a fruit cup and a tangerine -given labs and fluid intake, patient appears stable without IV fluids 03/25/2022 Patient remains anxious despondent to me a appears to be psychotically depressed somatically delusional and on able to take in information or explain his self cyst drug active and potentially life-threatening behavior if he markedly limits food and fluids based on no rational explanation.? Refusing medical workup.? Patient has upcoming court hearing for retention and treatment plan.? Try to develop therapeutic [place] encourage labs every other day monitor food and fluid intake may intermittently need IV fluids If patient remains acute may benefit from ECT treatment which would have a more acute impact potentially 03/29/22 pt Involuntarily committed with substituted judgment for medication.? Survey Research Associate discussed this with patient who said nothing is going to help 03/30 patient starting on Zyprexa; unable to believe he can take it p.o. or SL so given IM.? Patient very anxious, does not think anything will help 03/31 Remains delusional; Only Drinking when prompted to do so. Patient agrees there is no chest pain when eating or drinking and that doing so does not make him retch/vomit.? However he continues to assert that he can not drink even when he does so in front of fha underwriter.? Creatinine bumped up today.? Still within normal limits; Will check daily 04/01 remains delusional; no insight poor judgment; clearly mentally tortured by paranoid delusion. Needs constant prompting to drink; passively allows oral care. Case discussed with Dr. Pérez who agrees with current treatment plan -tachycardic; kidney function still within normal limits; mildly hypernatremic, likely from dehydration; will order CPK for tomorrow although no BRETT 04/02/22 remains with delusional sx. accepted PO meds today. Team is strongly encouraging food and fluids. Responds to consistent encouragement. Met with pt and mother, then parents after their visit. 04/03/22: Continue current plan. 04/04/22: Daily labs and monitoring. Consider possibly decreasing Lorazepam as it may be activating depressive sx. 04/05/22: Patient remains delusional, depressed and anxious; however he is eating and drinking adequately without prompting and lab work remains within normal limits. Patient is also little more communicative. Will start Prozac for anxiety/depression and OCD like symptoms; Prozac is also often used in combination with Zyprexa for treatment of depression. 04/06 continued somatic delusional worries; however continues to eat and drink adequately. Will give medications another day or so and then consider increasing doses 04/08 no change; continues to eat and drink adequately. Kidney function and lytes within normal limits however mildly increased ALT, possibly due to Prozac. Will increase, however will monitor. Choosing to increase Prozac since patient's illness is primarily anxiety though he also has a psychotic depression. Prozac has less side effect risks in general. That said may also eventually increase Zyprexa 04/09 remains psychotically depressed, with pronounced negative symptoms. Will likely increase Zyprexa 04/10 continue current regimen; eating and drinking, however not attending to any other ADLs. 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 Symptoms likley formally subdued with alcohol abuse Patient has hx of anxiety started in childhood.? However has functioned in the community with almost no history of psychiatric meds/therapy. No hx of any psychosis or lyn.? 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 Starting this summer patient has undergone a series of stressful events (sisters cancer dx; patients own illness) triggering excessive worry and he's been going to the ED for psychosomatic complaints (along with organic ones); he has become unable to function, along worse, does not drive, not attending to ADLs. His parents agree that given patient's baseline anxiety, all these events combined into overwhelming anxiety and and tipped scales for him decompensate leading to this admission.? Patient is not manic; though he has paranoid, somatic delusions, he has no known history of psychotic illness. Pt's MACIEL/Somatic delusional worries (and possibly OCD) about his organic medical illness have become delusional making it difficult to ascertain what is going on and whether there is an organic component to his complaint that he cannot keep down food or water. Patient has no insight that he has delusional thoughts (he had 1 fleeting moment of insight after Ativan lowered anxiety). Although he can understand possible concerns/consequences of refusing treatment (such risks of worsening kidney function,which he does not want and so he eventually consents to getting blood draws to monitor) his paranoid delusional thinking makes him think all treatments are useless, won't help him and that his situation is hopeless. He is unaware the role his anxiety plays in confounding his thinking, insisting nothing will help, even when some of his complaints could be resolved with something as simple as an enema. Now taking medications, patient is eating and drinking adequately without need for prompting. He remains delusional and depressed. PLAN: Section 8b, involuntarily Civilly committed on 03/29.? q15min checks.? Signed HCP on 03/19/22 -COURT AFFIRMED HCP (04/08/2022): HCP's notified: Healthcare proxy invoked and now affirmed by the court. Healthcare proxies are 1st, patient's mother Le and then 2nd his father Chris. Hansen.?OCD/MACIEL/paranoid delusion/somatic disorder?(hx severe anxiety since childhood; coped w/ Etoh abuse; sober 1 yr) -Patient is severely anxious with delusions that someting is very wrong with him that cannot be understood or treated; he has a history of seeking treatment for medical illness and if thinking clearly, would do so now. -He does not want to or harm his body, however he is convinced it Is hopeless.? -continue Zyprexa/Zydis 10mg daily:? COURT ORDERED; IF REFUSES GIVE IM ZYPREXA (discussed risks/benefits of this medication and antipsychotics to HCP's) -continue Ativan 1 mg t.i.d.; patient is noticeably more interactive after Ativan -increase to Prozac 20 mg daily for anxiety/depression and OCD like symptoms -patient agrees to walk the halls 3 times a day B.?Minimal PO intake fluid/food: resolved:?psychogenic origin (KUB negative; refused barium swallow); initially not drinking or eating -now eating and drinking daily, even without prompting -making urine daily -monitor Bun/Cr and Lytes which thus far remain WNL *as long as he continues to drink fluids, it looks like his kidney function remains stable.? -Ordered oral hygiene care t.i.d. with chlorhexidine mouthwash -if patient reverts back to refusal to drink, continue to evaluate kidney function. May need to consider IV fluids, to avert risk of severe and/or permanent kidney damage. -currently Patient is still making urine and labs reveal kidney function remains WNL -Will continue to assess dehydration however?without fluids patient will at some point risks severe and even permanent kidney damage. -fha underwriter has discussed case with both Psychiatric Director Dr. Pérez and several hospitalists (listed throughout) -will continue to monitor labs as pt allows -Monitor for clinical signs of dehydration: Dry mucus membranes; Skin turgor, drop in blood pressure/reflex tachycardia; sunken eyes will monitor BMP will monitor for clinical signs of dehydration will monitor PO intake and if making urine C.?Thoracic aneurysm: Patient now taking metoprolol and amlodipine daily consulted with Operations And Maintenance Technician Dr. Pennington and appreciate recommendations above -initially Pt refuses to allow CT to Assess thoracic aneurysm (last assessed Nov 2021 at 4.3cm; however while he initially c/o of ?sudden onset of substernal upper abdominal pain on eating/drinking, this complaint has resolved making this no longer a concern) Patient educated on: diagnosis Informed Consent: does not understand and further education needed Reason for contiued inpatient stay Substantial Risk for: inability to function Time Spent With Patient Time: Total time managing care of this patient today ____ minutes.
[2022-04-10 14:00] VITALS: BP 122/86; PULSE 76; RESP 16; TEMP 36.8; O2SAT 98
[2022-04-10 18:42] VITALS: BP 109/65; PULSE 72; RESP 16; TEMP 36.5; O2SAT 98
[2022-04-10 22:00] VITALS: BP 129/82; PULSE 78; RESP 16; TEMP 36.6; O2SAT 97
[2022-04-11 09:05] VITALS: BP 101/63; PULSE 92; RESP 16; TEMP 36.6; O2SAT 97
[2022-04-11] MEDS: OLANZapine ODT 10 MG TAB.RAPDIS TRANSLINGU (09:10)
[2022-04-11] MEDS: amLODIPine Besylate 5 MG TABLET PO (09:10)
[2022-04-11] MEDS: Metoprolol Succinate ER 25 MG TAB.ER.24H PO (09:10)
[2022-04-11] MEDS: LORazepam 1 MG TABLET PO ×3 (09:10→21:23)
[2022-04-11] MEDS: FLUoxetine HCl 20 MG CAPSULE PO (09:10)
[2022-04-11 09:37] LABS: Alanine Aminotransferase 51 U/L (0-40); Albumin Level 3.3 g/dL (3.5-5.0); Alkaline Phosphatase 37 U/L (39-117); Anion Gap 11 (12-20); Aspartate Amino Transferase 24 U/L (5-37); Bilirubin Total 0.4 mg/dL (0.0-1.0); Blood Urea Nitrogen 13 mg/dL (9-16); Carbon Dioxide 27 mmol/L (22-29); Chloride 105 mmol/L (96-108); Creatinine Clr Calc Pharmacy 135.9; Estimated Glomerular Filt Rate > 60; Glucose Random 81 mg/dL (60-115); Potassium 3.5 mmol/L (3.3-5.1); Sodium 139 mmol/L (135-145); Total Protein 5.5 g/dL (6.5-8.0)
--- NOTE | 2022-04-11 12:58 | HO.PSYCHPN ---
Subjective Subjective Date of Service: 04/11/22 Reason For Visit: psychosis, delusions of persecution, SI Interim History: Little change. Patient is willing to walk the hallways but only when prompted. He says he is the same and remains despondent, disheveled and not attending to ADLs. Mostly lies in bed all day Reviewed labs and LFTs returning to normal Mental Status Exam Mental Status Exam Narrative: Pt is alert and oriented; behavior is depressed, lying on bed; little easier with which to engage but mostly reticent; in casual attire, scruffy facial hair, disheveled, malodorous; mood is described as depressed and anxious; affect depressed; improved eye contact; Speech is normal rate, volume and prosody and not pressured; psychomotor retardation present; thought process is goal directed; Thought content is on physical ailments, hopelessness and psychosomatic delusional worries; denies any SI/HI. There is no evidence of perceptual disturbance. Patients insight and judgment are impaired Diagnostics Vital Signs (24Hr): Vital Signs - 24 hr 04/10/22 14:00 04/10/22 18:42 04/10/22 22:00 Temperature 98.2 F 97.7 F 97.8 F Pulse Rate 76 72 78 Respiratory Rate 16 16 16 Blood Pressure 122/86 109/65 129/82 Pulse Oximetry 98 98 97 Oxygen Delivery Method Room Air Room Air Room Air 04/11/22 09:05 Temperature 97.8 F Pulse Rate 92 Respiratory Rate 16 Blood Pressure 101/63 Pulse Oximetry 97 Oxygen Delivery Method Room Air BMI result Body Mass Index 47.3 Labs 03/17/22 14:30 04/11/22 08:22 Labs: Laboratory Results - last 48 hr 04/11/22 08:22 Sodium 139 Potassium 3.5 Chloride 105 Carbon Dioxide 27 Anion Gap 11 L BUN 13 Creatinine 0.73 Estim Creat Clear Calc 135.9 Estimated GFR > 60 Random Glucose 81 Calcium 9.0 Total Bilirubin 0.4 AST 24 ALT 51 H Alkaline Phosphatase 37 L Total Protein 5.5 L Albumin 3.3 L Imaging Radiology Impressions: ITS Impressions KUB X-Ray 03/18/22 16:35 IMPRESSION: Unremarkable examination. Medications Medications Current Medications Acetaminophen (Acetaminophen 325 Mg Tablet) 650 mg PO Q6H PRN PRN Reason: Headache/Pain Mild Scale (1-3) Al Hydroxide/Mg Hydroxide (Magnesium Hydrox/Alum Hydrox 30 Ml Oral.Susp) 30 ml PO Q6H PRN PRN Reason: Heartburn/Nausea Amlodipine Besylate (Amlodipine Besylate 5 Mg Tablet) 5 mg PO DAILY [facility]; Protocol Last Admin: 04/11/22 09:10 Dose: 5 mg Fluoxetine HCl (Fluoxetine Hcl 20 Mg Capsule) 20 mg PO DAILY [facility] Last Admin: 04/11/22 09:10 Dose: 20 mg Lorazepam (Lorazepam 1 Mg Tablet) 1 mg PO Q4H PRN PRN Reason: Anxiety Lorazepam (Lorazepam 1 Mg Tablet) 1 mg PO TID [facility] Last Admin: 04/11/22 09:10 Dose: 1 mg Lorazepam (Lorazepam 2 Mg/Ml Vial) 1 mg IM TID PRN PRN Reason: If refuses PO Magnesium Hydroxide (Milk Of Magnesia 30 Ml Oral.Susp) 30 ml PO DAILY PRN PRN Reason: Constipation Metoprolol Succinate (Metoprolol Succinate Er 25 Mg Tab.Er.24h) 25 mg PO DAILY [facility]; Protocol Last Admin: 04/11/22 09:10 Dose: 25 mg Olanzapine (Olanzapine 10 Mg Vial) 10 mg IM DAILY PRN PRN Reason: if refuses PO Last Admin: 04/01/22 11:32 Dose: 10 mg Olanzapine (Olanzapine Odt 10 Mg Tab.Rapdis) 10 mg TRANSLINGU DAILY [facility] Last Admin: 04/11/22 09:10 Dose: 10 mg Polyethylene Glycol (Polyethylene Glycol 3350 17 Gm Powd.Pack) 17 gm PO DAILY PRN PRN Reason: constipation Sodium Biphosphate/Sodium Phosphate (Sodium Phosphate,Humphreys-Dibasic 133 Ml Enema) 133 ml TX ONCE PRN PRN Reason: Constipation Trazodone HCl (Trazodone Hcl 50 Mg Tablet) 50 mg PO BEDTIME PRN PRN Reason: Insomnia Allergies Allergies Allergy/AdvReac Type Severity Reaction Status Date / Time No Known Allergies Allergy Verified 03/17/22 16:59 Assessment & Plan Assessment & Plan (1) Thoracic aortic aneurysm: Status: Acute Code(s): I71.20 - Thoracic aortic aneurysm, without rupture, unspecified Assessment and Plan: Known chronic thoracic aortic aneurysm without any acute symptoms. This is a chronic condition and there is no acute due to this lesion. It needs to be treated in the long run with medications such as metoprolol and other antihypertensive is a blood pressure remains elevated on metoprolol therapy to reduce she was stressed on the aorta. However is not having any acute symptoms at this point in time. Risk of rupture is very low in mild thoracic aortic aneurysm. His refusal of taking medication appears to be due to lack of understanding as well as his psychiatric condition that prevents him from processing the information. I would concentrate on treating his psychiatric condition so as to then eventually able to understand the need for taking medications. In the long run he will need to be followed as an outpatient by her business operations director that he was following before. If he has intermittent hypertensive episode which again seems to be driven by acute anxiety, would consider treating the anxiety disorder. Can use metoprolol intramuscularly if needed for acute hypertension. Although patient is currently refusing taking his medication and focus should be try to make him understand to take his medications. There is no relation should between thoracic aortic aneurysm and QT prolongation. Use of psychoactive medication as needed can be used and I do not see any clear contraindication, his EKG done on admission shows normal QTC interval. Usual precautions for QT prolongation with avoidance of other QT prolonging drugs and maintaining electrolytes especially magnesium and potassium in normal range. Also can check QTC interval after initiating psychoactive medications at a known to prolong QT interval. Will follow up if need be. Plan HPI: pt is a 46 yo male with long hx of anxiety, thoracic aneurysm (dx Nov 2021) who presents for severe anxiety in face of difficulty eating/drinking since this past monday. Pt is accompanied by his mother.? -Pt reports that this past monday he stopped being able to eat or drink since it caused pain (pointing to area just below his xiphoid process) and wretching. -hx of severe anxiety -but no hx of psychosis; no hx lyn Patient's parents review timeline events leading up to this admission: Prior to this summer, patient was overall doing fine, worked, drove his car and for the past 2 years had no obvious problems.? Parents agree that patient is drinking likely kept his anxiety down to some degree -September:? sister got diagnosed with melanoma very upsetting for patient -September:? patient had painless hematuria, cystoscopy did have a finding but it was benign -November:? About 4 years ago patient was diagnosed with thoracic aneurysm however he has not followed up.? This past summer he was going to the emergency room multiple times for various problems and eventually agreed to thoracic CT which showed that aneurysm had increased to 4.3 mg -December:? Patient had a severely ingrown toenail which required surgical extraction -January: Patient diagnosed with macular degeneration is right eye -over these months patient has been eating less and less, saying that he had little appetite, did not like the smell of meat and has lost 20 or more lb -March: on Monday patient had bloody stool; 1st bowel movement in a week On Monday patient suddenly had chest pain and subsequent retching after drinking any fluid or eating anything On 02:30 patient went to [facility] ED, blood labs were drawn but no imaging or or labs; no fluid; long wait prompted patient to return home but he then came to [place] ED where he got IV fluid HOSPITAL COURSE: .03/19 meeting w/ parents; pt anxious, lamenting that nothing can be done for him, just let him go...asking his parents to just leave him somewhere...Te[employer] asked where the side of the road? and he says yes. He denies any SI and laments i want to drink i want to eat...i just can't...i can't explain it.. but goes on to repeat that nothing can be done for him.? Patient refuses to believe that keno writer/runner has seeing other patients who could not eat or drink, saying that this is a unique situation.? [employer] and parents together tried to encourage patient to take another Ativan under his tongue, which helped yesterday however he refused and kept saying it will not help... there is no point (after patient took Ativan under his tongue he was much more reasonable and able to engage with keno writer/runner and agreed that perhaps he could be helped; at that time he agreed to KUB, barium swallow and thoracic CT-each intervention was explained to patient.? Patient got the KUB but was worried about the CT and eventually refused CT).? Patient refused an IV fluids for the same reason saying it is not going to help. Patient has a thoracic aneurysm and has not been taking his metoprolol or amlodipine saying he is unable to swallow.? [employer] discussed with patient who understands the need for these medications for his thoracic aneurysm however He refuses IV metoprolol saying it's not going to help...? Nothing is going to help....? You can not fix me.... -patient reported that he did make urine today, that it was brown and bubbly [employer], Patient and mother and father discussed healthcare proxy and patient was initially ambivalent.? [employer] explained the details of healthcare proxy;? patient asked appropriate questions and expressed he understood and said he trusts his parents and that they are great. Patient signed healthcare proxy designating his mother and than his father as alternate. Discussed case with Hospitalist Dr. Hernandez, Dr. Law (GI) and business operations director Dr. Serrano -Barrium swallow on hold to first r/o obstruction (per amrik Law) with KUB -KUB ordered (per Dr. Law): unremarkable -CT chest/angio/aortic ordered with IV contrast to r/o worsening thoracic aneurysm (per dr. Serrano-though considers this unlikely); pt refused -fleet enema ordered: refused 03/20 Patient remains delusional 03/21 Remains delusoinal. He was able to drink some, small amount of fluid; refused IV; again discussed w/ patient consequences of refusal but he maintains that it won't help anyway. 03/22 seems more depressed today and does not respond with anxious lament when approached with questions.? Remains delusional and refuses IV or any kind of medication or treatment.? He seems to agree to continue allowing lab work for monitoring kidney functions. -potassium mildly low today -BUN/creatinine WNL 03/23 patient remains with paranoid delusional thinking regarding his physical health.? He is trying to eat and drink and has been able to keep of food and fluids down.? He continues to refuse medication of any kind, including medications prescribed by business operations director to prevent thoracic aneurysm from worsening.? Both patient's parents/healthcare proxy want him to take medications including metoprolol and amlodipine. -lytes: WNL -BUN creatinine: WNL -patient is taking in enough fluid that his kidney function remains intact and at this time patient appears stable without IV fluids -he refuses IV for fluids, refuses thoracic CT, refuses barium swallow, refuses Fleet enema, refuses occult stool test; intermittently refuses labs; refuses all medication including IM and SL); thus far he has allowed labwork to monitor for kidney function.? Patient's anxiety is chronic but has reached a psychotic level and patient does not have the capacity to make medical decisions for himself. Patient has a detailed history of seeking treatment for his ailments. However, now he is disorganized; he says he wants to eat and drink, does not want to ...wants to live, does not want to damage his kidneys... however he refuses nearly all?treatments/interventions. -keno writer/runner has discussed case w/ hospitalist and PA 03/24 Patient remains delusional and despondent.? He says he is not good and continues to say I do not know what I am going to do I am just lost. [employer] discussed reasons to try medications to which patient says it makes sense however he follows up with I just do not know......i'm in bad shape... the only thing I know is that there are no solutions..? I am certain about... [employer] later met with patient again while his parents were visiting; patient's parents are urged him to try medications that keno writer/runner is offering however patient adamantly refuses.? He tried to help keno writer/runner and family understand by saying I do not want to , I just know there is not a chance.? It is the only thing left that I do know. ? Family discussion about healthcare proxy and involuntary commitment which patient understands. -Lytes: WNL -BUN/creatinine: WNL -Patient making urine -Patient drank about 2 cups of water by miday and drank and orange juice box; also ate a fruit cup and a tangerine -given labs and fluid intake, patient appears stable without IV fluids 03/25/2022 Patient remains anxious despondent to me a appears to be psychotically depressed somatically delusional and on able to take in information or explain his self cyst drug active and potentially life-threatening behavior if he markedly limits food and fluids based on no rational explanation.? Refusing medical workup.? Patient has upcoming court hearing for retention and treatment plan.? Try to develop therapeutic [place] encourage labs every other day monitor food and fluid intake may intermittently need IV fluids If patient remains acute may benefit from ECT treatment which would have a more acute impact potentially 03/29/22 pt Involuntarily committed with substituted judgment for medication.? [employer] discussed this with patient who said nothing is going to help 03/30 patient starting on Zyprexa; unable to believe he can take it p.o. or SL so given IM.? Patient very anxious, does not think anything will help 03/31 Remains delusional; Only Drinking when prompted to do so. Patient agrees there is no chest pain when eating or drinking and that doing so does not make him retch/vomit.? However he continues to assert that he can not drink even when he does so in front of keno writer/runner.? Creatinine bumped up today.? Still within normal limits; Will check daily 04/01 remains delusional; no insight poor judgment; clearly mentally tortured by paranoid delusion. Needs constant prompting to drink; passively allows oral care. Case discussed with Dr. Pérez who agrees with current treatment plan -tachycardic; kidney function still within normal limits; mildly hypernatremic, likely from dehydration; will order CPK for tomorrow although no BRETT 04/02/22 remains with delusional sx. accepted PO meds today. Team is strongly encouraging food and fluids. Responds to consistent encouragement. Met with pt and mother, then parents after their visit. 04/03/22: Continue current plan. 04/04/22: Daily labs and monitoring. Consider possibly decreasing Lorazepam as it may be activating depressive sx. 04/05/22: Patient remains delusional, depressed and anxious; however he is eating and drinking adequately without prompting and lab work remains within normal limits. Patient is also little more communicative. Will start Prozac for anxiety/depression and OCD like symptoms; Prozac is also often used in combination with Zyprexa for treatment of depression. 04/06 continued somatic delusional worries; however continues to eat and drink adequately. Will give medications another day or so and then consider increasing doses 04/08 no change; continues to eat and drink adequately. Kidney function and lytes within normal limits however mildly increased ALT, possibly due to Prozac. Will increase, however will monitor. Choosing to increase Prozac since patient's illness is primarily anxiety though he also has a psychotic depression. Prozac has less side effect risks in general. That said may also eventually increase Zyprexa 04/09 remains psychotically depressed, with pronounced negative symptoms. Will likely increase Zyprexa 04/10 continue current regimen; eating and drinking, however not attending to any other ADLs. 04/11 seems that patient has plateaued; he is eating and drinking and taking medication and with prompting willing to walk the halls but otherwise remains depressed, disheveled, not attending to ADLs including brushing his teeth, bathing changing clothing or getting out of bed unless prompted. Remains with delusional belief that something is irrevocably wrong with his body and that he can't explain it... Not responsive to reality testing. He is overall a little less anxious which is helpful. Will likely increase Zyprexa for continued psychotic depression. Patient had asked what he needs to do for discharge response given his start doing some of the things he would normally do such is bathe, brushes teeth, changes clothes, talk with others... 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 Symptoms likley formally subdued with alcohol abuse Patient has hx of anxiety started in childhood.? However has functioned in the community with almost no history of psychiatric meds/therapy. No hx of any psychosis or lyn.? 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 Starting this summer patient has undergone a series of stressful events (sisters cancer dx; patients own illness) triggering excessive worry and he's been going to the ED for psychosomatic complaints (along with organic ones); he has become unable to function, along worse, does not drive, not attending to ADLs. His parents agree that given patient's baseline anxiety, all these events combined into overwhelming anxiety and and tipped scales for him decompensate leading to this admission.? Patient is not manic; though he has paranoid, somatic delusions, he has no known history of psychotic illness. Pt's MACIEL/Somatic delusional worries (and possibly OCD) about his organic medical illness have become delusional making it difficult to ascertain what is going on and whether there is an organic component to his complaint that he cannot keep down food or water. Patient has no insight that he has delusional thoughts (he had 1 fleeting moment of insight after Ativan lowered anxiety). Although he can understand possible concerns/consequences of refusing treatment (such risks of worsening kidney function,which he does not want and so he eventually consents to getting blood draws to monitor) his paranoid delusional thinking makes him think all treatments are useless, won't help him and that his situation is hopeless. He is unaware the role his anxiety plays in confounding his thinking, insisting nothing will help, even when some of his complaints could be resolved with something as simple as an enema. uPDATE 04/11/22 Patient has been eating and drinking adequately without need for prompting. He continues to have somatic delusions and with psychotic depression. Not attending to ADLs, lies in bed despondent all day; only walks the halls when prompted PLAN: Section 8b, involuntarily Civilly committed on 03/29.? q15min checks.? Signed HCP on 03/19/22 -COURT AFFIRMED HCP (04/08/2022): HCP's notified: Healthcare proxy invoked and now affirmed by the court. Healthcare proxies are 1st, patient's mother Le and then 2nd his father Chris. Hansen.?OCD/MACIEL/paranoid delusion/somatic disorder?(hx severe anxiety since childhood; coped w/ Etoh abuse; sober 1 yr) -Patient is severely anxious with delusions that someting is very wrong with him that cannot be understood or treated; he has a history of seeking treatment for medical illness and if thinking clearly, would do so now. -He does not want to or harm his body, however he is convinced it Is hopeless.? -INCREASE Zyprexa/Zydis 15mg daily:? COURT ORDERED; IF REFUSES GIVE IM ZYPREXA (discussed risks/benefits of this medication and antipsychotics to HCP's) -continue Ativan 1 mg t.i.d.; patient is noticeably more interactive after Ativan -increase to Prozac 20 mg daily for anxiety/depression and OCD like symptoms -patient agrees to walk the halls 3 times a day B.?Minimal PO intake fluid/food: resolved:?psychogenic origin (KUB negative; refused barium swallow); initially not drinking or eating -now eating and drinking daily, even without prompting -making urine daily -monitor Bun/Cr and Lytes which thus far remain WNL *as long as he continues to drink fluids, it looks like his kidney function remains stable.? -Ordered oral hygiene care t.i.d. with chlorhexidine mouthwash -if patient reverts back to refusal to drink, continue to evaluate kidney function. May need to consider IV fluids, to avert risk of severe and/or permanent kidney damage. -currently Patient is still making urine and labs reveal kidney function remains WNL -Will continue to assess dehydration however?without fluids patient will at some point risks severe and even permanent kidney damage. -keno writer/runner has discussed case with both Psychiatric Director Dr. Pérez and several hospitalists (listed throughout) -will continue to monitor labs as pt allows -Monitor for clinical signs of dehydration: Dry mucus membranes; Skin turgor, drop in blood pressure/reflex tachycardia; sunken eyes will monitor BMP will monitor for clinical signs of dehydration will monitor PO intake and if making urine C.?Thoracic aneurysm: Patient now taking metoprolol and amlodipine daily consulted with [place] Dr. Pennington and appreciate recommendations above -initially Pt refuses to allow CT to Assess thoracic aneurysm (last assessed Nov 2021 at 4.3cm; however while he initially c/o of ?sudden onset of substernal upper abdominal pain on eating/drinking, this complaint has resolved making this no longer a concern) Patient educated on: diagnosis and medical condition Informed Consent: does not understand Reason for contiued inpatient stay Substantial Risk for: inability to function Time Spent With Patient Time: Total time managing care of this patient today ____ minutes.
[2022-04-11 13:00] VITALS: BP 89/59; PULSE 89; RESP 16; TEMP 37.2; O2SAT 96
[2022-04-11 16:36] VITALS: BP 90/69; PULSE 113; TEMP 36.1; O2SAT 96
[2022-04-11 21:00] VITALS: RESP 16
[2022-04-12 08:06] VITALS: BP 98/53; PULSE 72; RESP 16; TEMP 36.6; O2SAT 95
[2022-04-12] MEDS: amLODIPine Besylate 5 MG TABLET PO (08:34)
[2022-04-12] MEDS: LORazepam 1 MG TABLET PO ×2 (08:35→15:53)
[2022-04-12] MEDS: OLANZapine ODT 10 MG TAB.RAPDIS TRANSLINGU (08:35)
[2022-04-12] MEDS: FLUoxetine HCl 20 MG CAPSULE PO (08:35)
--- NOTE | 2022-04-12 10:07 | P.PNPSI_ITS ---
Subjective Subjective Date of Service: 04/12/22 Reason For Visit: psychosis, delusions of persecution, SI Interim History: Patient lying in bed, despondent. Patient denies any physical pain or discomfort. However he remains worried about his body and says it is a whole systemic thing... I do not know why. He says he feels like a lost cause. He again brings up his concern about pus being in his blood and seems to except conventional mortgage underwriter's explanation. Patient did shower today though with prompting. He agrees he is doing better with eating and drinking but says again I do not know how long it can go on. He does not think he will be able to attend to ADLs without being prompted Mental Status Exam Mental Status Exam Narrative: Pt is alert and oriented; behavior is depressed, lying on bed; little easier with which to engage but mostly reticent; in casual attire, scruffy facial hair, disheveled, malodorous; mood is described as depressed and anxious; affect depressed; improved eye contact; Speech is normal rate, volume and prosody and not pressured; psychomotor retardation present; thought process is goal directed; Thought content is on physical ailments, hopelessness and ps ychosomatic delusional worries; denies any SI/HI. There is no evidence of perceptual disturbance. Patients insight and judgment are impaired Diagnostics Vital Signs (24Hr): Vital Signs - 24 hr 04/11/22 13:00 04/11/22 16:36 04/11/22 21:00 Temperature 98.9 F 97.0 F Pulse Rate 89 113 H Respiratory Rate 16 16 Blood Pressure 89/59 L 90/69 Pulse Oximetry 96 96 Oxygen Delivery Method Room Air Room Air 04/12/22 08:06 Temperature 97.9 F Pulse Rate 72 Respiratory Rate 16 Blood Pressure 98/53 L Pulse Oximetry 95 Oxygen Delivery Method Room Air BMI result Body Mass Index 47.3 Labs 03/17/22 14:30 04/11/22 08:22 Labs: Laboratory Results - last 48 hr 04/11/22 08:22 Sodium 139 Potassium 3.5 Chloride 105 Carbon Dioxide 27 Anion Gap 11 L BUN 13 Creatinine 0.73 Estim Creat Clear Calc 135.9 Estimated GFR > 60 Random Glucose 81 Calcium 9.0 Total Bilirubin 0.4 AST 24 ALT 51 H Alkaline Phosphatase 37 L Total Protein 5.5 L Albumin 3.3 L Imaging Radiology Impressions: ITS Impressions KUB X-Ray 03/18/22 16:35 IMPRESSION: Unremarkable examination. Medications Medications Current Medications Acetaminophen (Acetaminophen 325 Mg Tablet) 650 mg PO Q6H PRN PRN Reason: Headache/Pain Mild Scale (1-3) Al Hydroxide/Mg Hydroxide (Magnesium Hydrox/Alum Hydrox 30 Ml Oral.Susp) 30 ml PO Q6H PRN PRN Reason: Heartburn/Nausea Amlodipine Besylate (Amlodipine Besylate 5 Mg Tablet) 5 mg PO DAILY [facility]; Protocol Last Admin: 04/12/22 08:34 Dose: 5 mg Fluoxetine HCl (Fluoxetine Hcl 20 Mg Capsule) 20 mg PO DAILY [facility] Last Admin: 04/12/22 08:35 Dose: 20 mg Lorazepam (Lorazepam 1 Mg Tablet) 1 mg PO Q4H PRN PRN Reason: Anxiety Lorazepam (Lorazepam 1 Mg Tablet) 1 mg PO TID [place] Last Admin: 04/12/22 08:35 Dose: 1 mg Lorazepam (Lorazepam 2 Mg/Ml Vial) 1 mg IM TID PRN PRN Reason: If refuses PO Magnesium Hydroxide (Milk Of Magnesia 30 Ml Oral.Susp) 30 ml PO DAILY PRN PRN Reason: Constipation Metoprolol Succinate (Metoprolol Succinate Er 25 Mg Tab.Er.24h) 25 mg PO DAILY [facility]; Protocol Last Admin: 04/12/22 08:38 Dose: Not Given Olanzapine (Olanzapine 10 Mg Vial) 10 mg IM DAILY PRN PRN Reason: if refuses PO Last Admin: 04/01/22 11:32 Dose: 10 mg Olanzapine (Olanzapine Odt 10 Mg Tab.Rapdis) 15 mg TRANSLINGU DAILY [facility] Polyethylene Glycol (Polyethylene Glycol 3350 17 Gm Powd.Pack) 17 gm PO DAILY PRN PRN Reason: constipation Sodium Biphosphate/Sodium Phosphate (Sodium Phosphate,[place]-Dibasic 133 Ml Enema) 133 ml NV ONCE PRN PRN Reason: Constipation Trazodone HCl (Trazodone Hcl 50 Mg Tablet) 50 mg PO BEDTIME PRN PRN Reason: Insomnia Allergies Allergies Allergy/AdvReac Type Severity Reaction Status Date / Time No Known Allergies Allergy Verified 03/17/22 16:59 Assessment & Plan Assessment & Plan (1) Thoracic aortic aneurysm: Status: Acute Code(s): I71.20 - Thoracic aortic aneurysm, without rupture, unspecified Assessment and Plan: Known chronic thoracic aortic aneurysm without any acute symptoms. This is a chronic condition and there is no acute due to this lesion. It needs to be treated in the long run with medications such as metoprolol and other antihypertensive is a blood pressure remains elevated on metoprolol therapy to reduce she was stressed on the aorta. However is not having any acute symptoms at this point in time. Risk of rupture is very low in mild thoracic aortic aneurysm. His refusal of taking medication appears to be due to lack of understanding as well as his psychiatric condition that prevents him from processing the information. I would concentrate on treating his psychiatric condition so as to then eventually able to understand the need for taking medications. In the long run he will need to be followed as an outpatient by her slate mixer that he was following before. If he has intermittent hypertensive episode which again seems to be driven by acute anxiety, would consider treating the anxiety disorder. Can use metoprolol intramuscularly if needed for acute hypertension. Although patient is currently refusing taking his medication and focus should be try to make him understand to take his medications. There is no relation should between thoracic aortic aneurysm and QT prolongation. Use of psychoactive medication as needed can be used and I do not see any clear contraindication, his EKG done on admission shows normal QTC interval. Usual precautions for QT prolongation with avoidance of other QT prolonging drugs and maintaining electrolytes especially magnesium and potassium in normal range. Also can check QTC interval after initiating psychoactive medications at a known to prolong QT interval. Will follow up if need be. Plan HPI: pt is a 46 yo male with long hx of anxiety, thoracic aneurysm (dx Nov 2021) who presents for severe anxiety in face of difficulty eating/drinking since this past monday. Pt is accompanied by his mother.? -Pt reports that this past monday he stopped being able to eat or drink since it caused pain (pointing to area just below his xiphoid process) and wretching. -hx of severe anxiety -but no hx of psychosis; no hx lyn Patient's parents review timeline events leading up to this admission: Prior to this summer, patient was overall doing fine, worked, drove his car and for the past 2 years had no obvious problems.? Parents agree that patient is drinking likely kept his anxiety down to some degree -September:? sister got diagnosed with melanoma very upsetting for patient -September:? patient had painless hematuria, cystoscopy did have a finding but it was benign -November:? About 4 years ago patient was diagnosed with thoracic aneurysm however he has not followed up.? This past summer he was going to the emergency room multiple times for various problems and eventually agreed to thoracic CT which showed that aneurysm had increased to 4.3 mg -December:? Patient had a severely ingrown toenail which required surgical extraction -January: Patient diagnosed with macular degeneration is right eye -over these months patient has been eating less and less, saying that he had little appetite, did not like the smell of meat and has lost 20 or more lb -March: on Monday patient had bloody stool; 1st bowel movement in a week On Monday patient suddenly had chest pain and subsequent retching after drinking any fluid or eating anything On 02:30 patient went to [facility] ED, blood labs were drawn but no imaging or or labs; no fluid; long wait prompted patient to return home but he then came to [facility] ED where he got IV fluid HOSPITAL COURSE: .03/19 meeting w/ parents; pt anxious, lamenting that nothing can be done for him, just let him go...asking his parents to just leave him somewhere...Licensing Engineer asked where the side of the road? and he says yes. He denies any SI and laments i want to drink i want to eat...i just can't...i can't explain it.. but goes on to repeat that nothing can be done for him.? Patient refuses to believe that conventional mortgage underwriter has seeing other patients who could not eat or drink, saying that this is a unique situation.? Licensing Engineer and parents together tried to encourage patient to take an other Ativan under his tongue, which helped yesterday however he refused and kept saying it will not help... there is no point (after patient took Ativan under his tongue he was much more reasonable and able to engage with conventional mortgage underwriter and agreed that perhaps he could be helped; at that time he agreed to KUB, barium swallow and thoracic CT-each intervention was explained to patient.? Patient got the KUB but was worried about the CT and eventually refused CT).? Patient refused an IV fluids for the same reason saying it is not going to help. Patient has a thoracic aneurysm and has not been taking his metoprolol or amlodipine saying he is unable to swallow.? Licensing Engineer discussed with patient who understands the need for these medications for his thoracic aneurysm however He refuses IV metoprolol saying it's not going to help...? Nothing is going to help....? You can not fix me.... -patient reported that he did make urine today, that it was brown and bubbly Licensing Engineer, Patient and mother and father discussed healthcare proxy and patient was initially ambivalent.? Licensing Engineer explained the details of healthcare proxy;? patient asked appropriate questions and expressed he understood and said he trusts his parents and that they are great. Patient signed healthcare proxy designating his mother and than his father as alternate. Discussed case with Hospitalist Dr. Hernandez, Dr. Law (GI) and slate mixer Dr. Serrano -Barrium swallow on hold to first r/o obstruction (per amrik Law) with KUB -KUB ordered (per Dr. Law): unremarkable -CT chest/angio/aortic ordered with IV contrast to r/o worsening thoracic aneurysm (per dr. Serrano-though considers this unlikely); pt refused -fleet enema ordered: refused 03/20 Patient remains delusional 03/21 Remains delusoinal. He was able to drink some, small amount of fluid; refused IV; again discussed w/ patient consequences of refusal but he maintains that it won't help anyway. 03/22 seems more depressed today and does not respond with anxious lament when approached with questions.? Remains delusional and refuses IV or any kind of medication or treatment.? He seems to agree to continue allowing lab work for monitoring kidney functions. -potassium mildly low today -BUN/creatinine WNL 03/23 patient remains with paranoid delusional thinking regarding his physical health.? He is trying to eat and drink and has been able to keep of food and fluids down.? He continues to refuse medication of any kind, including medications prescribed by slate mixer to prevent thoracic aneurysm from worsening.? Both patient's parents/healthcare proxy want him to take medications including metoprolol and amlodipine. -lytes: WNL -BUN creatinine: WNL -patient is taking in enough fluid that his kidney function remains intact and at this time patient appears stable without IV fluids -he refuses IV for fluids, refuses thoracic CT, refuses barium swallow, refuses Fleet enema, refuses occult stool test; intermittently refuses labs; refuses all medication including IM and SL); thus far he has allowed labwork to monitor for kidney function.? Patient's anxiety is chronic but has reached a psychotic level and patient does not have the capacity to make medical decisions for himself. Patient has a detailed history of seeking treatment for his ailments. However, now he is disorganized; he says he wants to eat and drink, does not want to ...wants to live, does not want to damage his kidneys... however he refuses nearly all?treatments/interventions. -conventional mortgage underwriter has discussed case w/ hospitalbill and TRESSA 03/24 Patient remains delusional and despondent.? He says he is not good and continues to say I do not know what I am going to do I am just lost. Licensing Engineer discussed reasons to try medications to which patient says it makes sense however he follows up with I just do not know......i'm in bad shape... the only thing I know is that there are no solutions..? I am certain about... Licensing Engineer later met with patient again while his parents were visiting; patient's parents are urged him to try medications that conventional mortgage underwriter is offering however patient a damantly refuses.? He tried to help conventional mortgage underwriter and family understand by saying I do not want to , I just know there is not a chance.? It is the only thing left that I do know. ? Family discussion about healthcare proxy and involuntary commitment which patient understands. -Lytes: WNL -BUN/creatinine: WNL -Patient making urine -Patient drank about 2 cups of water by miday and drank and orange juice box; also ate a fruit cup and a tangerine -given labs and fluid intake, patient appears stable without IV fluids 03/25/2022 Patient remains anxious despondent to me a appears to be psychotically depressed somatically delusional and on able to take in information or explain his self cyst drug active and potentially life-threatening behavior if he markedly limits food and fluids based on no rational explanation.? Refusing medical workup.? Patient has upcoming court hearing for retention and treatment plan.? Try to develop therapeutic [place] encourage labs every other day monitor food and fluid intake may intermittently need IV fluids If patient remains acute may benefit from ECT treatment which would have a more acute impact potentially 03/29/22 pt Involuntarily committed with substituted judgment for medication.? Licensing Engineer discussed this with patient who said nothing is going to help 03/30 patient starting on Zyprexa; unable to believe he can take it p.o. or SL so given IM.? Patient very anxious, does not think anything will help 03/31 Remains delusional; Only Drinking when prompted to do so. Patient agrees there is no chest pain when eating or drinking and that doing so does not make him retch/vomit.? However he continues to assert that he can not drink even when he does so in front of conventional mortgage underwriter.? Creatinine bumped up today.? Still within normal limits; Will check daily 04/01 remains delusional; no insight poor judgment; clearly mentally tortured by paranoid delusion. Needs constant prompting to drink; passively allows oral care. Case discussed with Dr. Pérez who agrees with current treatment plan -tachycardic; kidney function still within normal limits; mildly hypernatremic, likely from dehydration; will order CPK for tomorrow although no BRETT 04/02/22 remains with delusional sx. accepted PO meds today. Team is strongly encouraging food and fluids. Responds to consistent encouragement. Met with pt and mother, then parents after their visit. 04/03/22: Continue current plan. 04/04/22: Daily labs and monitoring. Consider possibly decreasing Lorazepam as it may be activating depressive sx. 04/05/22: Patient remains delusional, depressed and anxious; however he is eating and drinking adequately without prompting and lab work remains within normal limits. Patient is also little more communicative. Will start Prozac for anxiety/depression and OCD like symptoms; Prozac is also often used in combination with Zyprexa for treatment of depression. 04/06 continued somatic delusional worries; however continues to eat and drink adequately. Will give medications another day or so and then consider increasing doses 04/08 no change; continues to eat and drink adequately. Kidney function and lytes within normal limits however mildly increased ALT, possibly due to Prozac. Will increase, however will monitor. Choosing to increase Prozac since patient's illness is primarily anxiety though he also has a psychotic depression. Prozac has less side effect risks in general. That said may also eventually increase Zyprexa 04/09 remains psychotically depressed, with pronounced negative symptoms. Will likely increase Zyprexa 04/10 continue current regimen; eating and drinking, however not attending to any other ADLs. 04/11 seems that patient has plateaued; he is eating and drinking and taking medication and with prompting willing to walk the halls but otherwise remains depressed, disheveled, not attending to ADLs including brushing his teeth, bathing changing clothing or getting out of bed unless prompted. Remains with delusional belief that something is irrevocably wrong with his body and that he can't explain it... Not responsive to reality testing. He is overall a little less anxious which is helpful. Will likely increase Zyprexa for continued psychotic depression. Patient had asked what he needs to do for discharge response given his start doing some of the things he would normally do such is bathe, brushes teeth, changes clothes, talk with others... to Which patient responded I do not think I can do that -at this time there is no less secure place for patient to receive treatment. He is eating and drinking but only because food and drink are brought to him; he walks the ahn 2 to 3 times a day but only because he is repeatedly prompted by staff andknows that he will end up getting Lovenox injections daily if he does not; he takes his medications however only because there court ordered. Without around the clock, trained, supportive staff and court-ordered medication, patient would rapidly decompensate. Case discussed with Dr. Pérez and team; will continue with medication titration however ECT is discussed and remains an option. 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 Symptoms likley formally subdued with alcohol abuse Patient has hx of anxiety started in childhood.? However has functioned in the community with almost no history of psychiatric meds/therapy. No hx of any psychosis or lyn.? 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 Starting this summer patient has undergone a series of stressful events (sisters cancer dx; patients own illness) triggering excessive worry and he's been going to the ED for psychosomatic complaints (along with organic ones); he has become unable to function, along worse, does not drive, not attending to ADLs. His parents agree that given patient's baseline anxiety, all these events combined into o verwhelming anxiety and and tipped scales for him decompensate leading to this admission.? Patient is not manic; though he has paranoid, somatic delusions, he has no known history of psychotic illness. Pt's MACIEL/Somatic delusional worries (and possibly OCD) about his organic medical illness have become delusional making it difficult to ascertain what is going on and whether there is an organic component to his complaint that he cannot keep down food or water. Patient has no insight that he has delusional thoughts (he had 1 fleeting moment of insight after Ativan lowered anxiety). Although he can understand possible concerns/consequences of refusing treatment (such risks of worsening kidney function,which he does not want and so he eventually consents to getting blood draws to monitor) his paranoid delusional thinking makes him think all treatments are useless, won't help him and that his situation is hopeless. He is unaware the role his anxiety plays in confounding his thinking, insisting nothing will help, even when some of his complaints could be resolved with something as simple as an enema. uPDATE 04/11/22 Patient has been eating and drinking adequately without need for prompting. He continues to have somatic delusions and with psychotic depression. Not attending to ADLs, lies in bed despondent all day; only walks the halls when prompted PLAN: Section 8b, involuntarily Civilly committed on 03/29.? q15min checks.? Signed HCP on 03/19/22 -COURT AFFIRMED HCP (04/08/2022): HCP's notified: Healthcare proxy invoked and now affirmed by the court. Healthcare proxies are 1st, patient's mother Le and then 2nd his father Chris. Hansen.?OCD/MACIEL/paranoid delusion/somatic disorder?(hx severe anxiety since childhood; coped w/ Etoh abuse; sober 1 yr) -Patient is severely anxious with delusions that someting is very wrong with him that cannot be understood or treated; he has a history of seeking treatment for medical illness and if thinking clearly, would do so now. -He does not want to or harm his body, however he is convinced it Is hopeless.? -INCREASEd Zyprexa/Zydis 15mg daily:? COURT ORDERED; IF REFUSES GIVE IM ZYPREXA (discussed risks/benefits of this medication and antipsychotics to HCP's) -continue Ativan 1 mg t.i.d.; patient is noticeably more interactive after Ativan -increase to Prozac 20 mg daily for anxiety/depression and OCD like symptoms -patient agrees to walk the halls 3 times a day B.?Minimal PO intake fluid/food: resolved:?psychogenic origin (KUB negative; refused barium swallow); initially not drinking or eating -now eating and drinking daily, even without prompting -making urine daily -monitor Bun/Cr and Lytes which thus far remain WNL *as long as he continues to drink fluids, it looks like his kidney function remains stable.? -Ordered oral hygiene care t.i.d. with chlorhexidine mouthwash -if patient reverts back to refusal to drink, continue to evaluate kidney function. May need to consider IV fluids, to avert risk of severe and/or permanent kidney damage. -currently Patient is still making urine and labs reveal kidney function remains WNL -Will continue to assess dehydration however?without fluids patient will at some point risks severe and even permanent kidney damage. -conventional mortgage underwriter has discussed case with both Psychiatric Director Dr. Pérez and several hospitalists (listed throughout) -will continue to monitor labs as pt allows -Monitor for clinical signs of dehydration: Dry mucus membranes; Skin turgor, drop in blood pressure/reflex tachycardia; sunken eyes will monitor BMP will monitor for clinical signs of dehydration will monitor PO intake and if making urine C.?Thoracic aneurysm: Patient now taking metoprolol and amlodipine daily consulted with Cafeteria Director Dr. Pennington and appreciate recommendations above -initially Pt refuses to allow CT to Assess thoracic aneurysm (last assessed Nov 2021 at 4.3cm; however while he initially c/o of ?sudden onset of substernal upper abdominal pain on eating/drinking, this complaint has resolved making this no longer a concern) Patient educated on: diagnosis and medical condition Informed Consent: understands, does not understand and further education needed Reason for contiued inpatient stay Substantial Risk for: inability to function Time Spent With Patient Time: Total time managing care of this patient today ____ minutes.
[2022-04-12] MEDS: OLANZapine 5 MG TABLET PO (11:16)
[2022-04-12 13:00] VITALS: RESP 16
[2022-04-12 17:00] VITALS: BP 103/58; PULSE 99; TEMP 36.2; O2SAT 98
[2022-04-12 21:00] VITALS: RESP 16
--- NOTE | 2022-04-13 | ECG_ITS ---
Test Reason : pyschosis, si Blood Pressure : / mmHG Vent. Rate : 076 BPM Atrial Rate : 076 BPM P-R Int : 158 ms QRS Dur : 100 ms QT Int : 382 ms P-R-T Axes : 035 009 023 degrees QTc Int : 429 ms Normal sinus rhythm Normal ECG When compared with ECG of 13-APR-2022 13:45, Sinus rhythm has replaced Junctional rhythm ST no longer depressed in Lateral leads Referred By: Ivan Vanessa Electronically Signed By:Efrain Cali
--- NOTE | 2022-04-13 | ECG_ITS ---
Test Reason : cp Blood Pressure : / mmHG Vent. Rate : 093 BPM Atrial Rate : 000 BPM P-R Int : 000 ms QRS Dur : 092 ms QT Int : 336 ms P-R-T Axes : 000 007 126 degrees QTc Int : 417 ms Artifact in tracing Normal sinus rhythm When compared with ECG of 04-APR-2022 14:09, Poor data quality in current ECG precludes serial comparison Referred By: Ivan Vanessa Electronically Signed By:Efrain Cali
[2022-04-13 08:19] VITALS: BP 92/62; PULSE 78; RESP 16; TEMP 36.8; O2SAT 96
[2022-04-13] MEDS: FLUoxetine HCl 20 MG CAPSULE PO (08:33)
[2022-04-13] MEDS: amLODIPine Besylate 5 MG TABLET PO (08:33)
[2022-04-13] MEDS: Metoprolol Succinate ER 25 MG TAB.ER.24H PO (08:33)
[2022-04-13] MEDS: LORazepam 1 MG TABLET PO ×2 (08:33→15:52)
[2022-04-13] MEDS: OLANZapine ODT 10 MG TAB.RAPDIS 15 MG TRANSLINGU (08:33)
--- NOTE | 2022-04-13 13:15 | PC.NURSE ---
pt complains of chest pain; provider aware and ordered ekg; vital signs stable; maalox adminstered
[2022-04-13] MEDS: Magnesium Hydrox/Alum Hydrox 30 ML ORAL.SUSP PO (13:17)
[2022-04-13 13:31] VITALS: BP 128/78; PULSE 86; RESP 16; TEMP 36.7; O2SAT 97
--- NOTE | 2022-04-13 13:31 | PC.NURSE ---
pt vomitted twice in room around 13;20. aware
[2022-04-13 14:28] VITALS: BP 120/72; PULSE 97; RESP 16; TEMP 36.7; O2SAT 98
[2022-04-13 14:30] LABS: Anion Gap 12 (12-20); Blood Urea Nitrogen 12 mg/dL (9-16); Calcium 9.3 mg/dL (8.4-10.2); Carbon Dioxide 23 mmol/L (22-29); Chloride 109 mmol/L (96-108); Creatinine Clr Calc Pharmacy 130.6; Estimated Glomerular Filt Rate > 60; Glucose Random 104 mg/dL (60-115); Potassium 3.2 mmol/L (3.3-5.1); Sodium 141 mmol/L (135-145)
[2022-04-13] MEDS: Aspirin Enteric Coated 81 MG TABLET.DR PO (14:37)
[2022-04-13 14:39] LABS: Troponin-I High Sensitivity < 3.5 ng/L (<3.5-35.0)
--- NOTE | 2022-04-13 15:05 | HO.PSYCHPN ---
Subjective Subjective Date of Service: 04/13/22 Reason For Visit: psychosis, delusions of persecution, SI Interim History: No change in presentation. Met with patient in art room. Patient remains hopeless. Discussed increasing Prozac to 30 mg. Patient reports mild epigastric chest pain about 5/10 that he said started last night, resolved but then came back. He cannot describe the quality of it. He denies that it radiates. Senior Policy Associate got EKG which is within normal limits; tropes negative; vitals within normal limits, no diaphoresis; discussed case with hospitalist Dr. Hernandez who does not think it is cardiac related and does not need consult. Recommended omeprazole 20 mg b.i.d. (and 1 x aspirin dose) Mental Status Exam Mental Status Exam Narrative: Pt is alert and oriented; behavior is depressed, lying on bed; little easier with which to engage but mostly reticent; in casual attire, scruffy facial hair, disheveled, malodorous; mood is described as depressed and anxious; affect depressed; improved eye contact; Speech is normal rate, volume and prosody and not pressured; psychomotor retardation present; thought process is goal directed; Thought content is on physical ailments, hopelessness and psychosomatic delusional worries; denies any SI/HI. There is no evidence of perceptual disturbance. Patients insight and judgment are impaired Diagnostics Vital Signs (24Hr): Vital Signs - 24 hr 04/12/22 17:00 04/12/22 21:00 04/13/22 08:19 Temperature 97.1 F 98.2 F Pulse Rate 99 78 Respiratory Rate 16 16 Blood Pressure 103/58 L 92/62 Pulse Oximetry 98 96 Oxygen Delivery Method Room Air Room Air 04/13/22 13:31 04/13/22 14:28 Temperature 98.1 F 98.0 F Pulse Rate 86 97 Respiratory Rate 16 16 Blood Pressure 128/78 120/72 Pulse Oximetry 97 98 Oxygen Delivery Method Room Air Room Air BMI result Body Mass Index 47.3 Labs 03/17/22 14:30 04/13/22 14:03 Labs: Laboratory Results - last 48 hr 04/13/22 04/13/22 14:03 14:03 Sodium 141 Potassium 3.2 L Chloride 109 H Carbon Dioxide 23 Anion Gap 12 BUN 12 Creatinine 0.76 Estim Creat Clear Calc 130.6 Estimated GFR > 60 Random Glucose 104 Calcium 9.3 Troponin I High Sens < 3.5 Imaging Radiology Impressions: ITS Impressions KUB X-Ray 03/18/22 16:35 IMPRESSION: Unremarkable examination. Medications Medications Current Medications Acetaminophen (Acetaminophen 325 Mg Tablet) 650 mg PO Q6H PRN PRN Reason: Headache/Pain Mild Scale (1-3) Al Hydroxide/Mg Hydroxide (Magnesium Hydrox/Alum Hydrox 30 Ml Oral.Susp) 30 ml PO Q6H PRN PRN Reason: Heartburn/Nausea Last Admin: 04/13/22 13:17 Dose: 30 ml Amlodipine Besylate (Amlodipine Besylate 5 Mg Tablet) 5 mg PO DAILY [facility]; Protocol Last Admin: 04/13/22 08:33 Dose: 5 mg Fluoxetine HCl (Fluoxetine Hcl 10 Mg Capsule) 30 mg PO DAILY [facility] Lorazepam (Lorazepam 1 Mg Tablet) 1 mg PO Q4H PRN PRN Reason: Anxiety Lorazepam (Lorazepam 2 Mg/Ml Vial) 1 mg IM BID PRN PRN Reason: If refuses PO Lorazepam (Lorazepam 1 Mg Tablet) 1 mg PO BID@0900,1600 [facility] Last Admin: 04/13/22 08:33 Dose: 1 mg Magnesium Hydroxide (Milk Of Magnesia 30 Ml Oral.Susp) 30 ml PO DAILY PRN PRN Reason: Constipation Metoprolol Succinate (Metoprolol Succinate Er 25 Mg Tab.Er.24h) 25 mg PO DAILY [facility]; Protocol Last Admin: 04/13/22 08:33 Dose: 25 mg Olanzapine (Olanzapine 10 Mg Vial) 10 mg IM DAILY PRN PRN Reason: if refuses PO Last Admin: 04/01/22 11:32 Dose: 10 mg Olanzapine (Olanzapine Odt 10 Mg Tab.Rapdis) 15 mg TRANSLINGU DAILY [facility] Last Admin: 04/13/22 08:33 Dose: 15 mg Omeprazole (Omeprazole 20 Mg Capsule.Dr) 20 mg PO BID@0630,1630 [facility] Polyethylene Glycol (Polyethylene Glycol 3350 17 Gm Powd.Pack) 17 gm PO DAILY PRN PRN Reason: constipation Sodium Biphosphate/Sodium Phosphate (Sodium Phosphate,[place]-Dibasic 133 Ml Enema) 133 ml VT ONCE PRN PRN Reason: Constipation Trazodone HCl (Trazodone Hcl 50 Mg Tablet) 50 mg PO BEDTIME PRN PRN Reason: Insomnia Allergies Allergies Allergy/AdvReac Type Severity Reaction Status Date / Time No Known Allergies Allergy Verified 03/17/22 16:59 Assessment & Plan Assessment & Plan (1) Thoracic aortic aneurysm: Status: Acute Code(s): I71.20 - Thoracic aortic aneurysm, without rupture, unspecified Assessment and Plan: Known chronic thoracic aortic aneurysm without any acute symptoms. This is a chronic condition and there is no acute due to this lesion. It needs to be treated in the long run with medications such as metoprolol and other antihypertensive is a blood pressure remains elevated on metoprolol therapy to reduce she was stressed on the aorta. However is not having any acute symptoms at this point in time. Risk of rupture is very low in mild thoracic aortic aneurysm. His refusal of taking medication appears to be due to lack of understanding as well as his psychiatric condition that prevents him from processing the information. I would concentrate on treating his psychiatric condition so as to then eventually able to understand the need for taking medications. In the long run he will need to be followed as an outpatient by her joy operator helper that he was following before. If he has intermittent hypertensive episode which again seems to be driven by acute anxiety, would consider treating the anxiety disorder. Can use metoprolol intramuscularly if needed for acute hypertension. Although patient is currently refusing taking his medication and focus should be try to make him understand to take his medications. There is no relation should between thoracic aortic aneurysm and QT prolongation. Use of psychoactive medication as needed can be used and I do not see any clear contraindication, his EKG done on admission shows normal QTC interval. Usual precautions for QT prolongation with avoidance of other QT prolonging drugs and maintaining electrolytes especially magnesium and potassium in normal range. Also can check QTC interval after initiating psychoactive medications at a known to prolong QT interval. Will follow up if need be. Plan HPI: pt is a 46 yo male with long hx of anxiety, thoracic aneurysm (dx Nov 2021) who presents for severe anxiety in face of difficulty eating/drinking since this past monday. Pt is accompanied by his mother.? -Pt reports that this past monday he stopped being able to eat or drink since it caused pain (pointing to area just below his xiphoid process) and wretching. -hx of severe anxiety -but no hx of psychosis; no hx lyn Patient's parents review timeline events leading up to this admission: Prior to this summer, patient was overall doing fine, worked, drove his car and for the past 2 years had no obvious problems.? Parents agree that patient is drinking likely kept his anxiety down to some degree -September:? sister got diagnosed with melanoma very upsetting for patient -September:? patient had painless hematuria, cystoscopy did have a finding but it was benign -November:? About 4 years ago patient was diagnosed with thoracic aneurysm however he has not followed up.? This past summer he was going to the emergency room multiple times for various problems and eventually agreed to thoracic CT which showed that aneurysm had increased to 4.3 mg -December:? Patient had a severely ingrown toenail which required surgical extraction -January: Patient diagnosed with macular degeneration is right eye -over these months patient has been eating less and less, saying that he had little appetite, did not like the smell of meat and has lost 20 or more lb -March: on Monday patient had bloody stool; 1st bowel movement in a week On Monday patient suddenly had chest pain and subsequent retching after drinking any fluid or eating anything On 02:30 patient went to [facility] ED, blood labs were drawn but no imaging or or labs; no fluid; long wait prompted patient to return home but he then came to [facility] ED where he got IV fluid HOSPITAL COURSE: .03/19 meeting w/ parents; pt anxious, lamenting that nothing can be done for him, just let him go...asking his parents to just leave him somewhere...Senior Policy Associate asked where the side of the road? and he says yes. He denies any SI and laments i want to drink i want to eat...i just can't...i can't explain it.. but goes on to repeat that nothing can be done for him.? Patient refuses to believe that check writer salesperson has seeing other patients who could not eat or drink, saying that this is a unique situation.? Senior Policy Associate and parents together tried to encourage patient to take another Ativan under his tongue, which helped yesterday however he refused and kept saying it will not help... there is no point (after patient took Ativan under his tongue he was much more reasonable and able to engage with check writer salesperson and agreed that perhaps he could be helped; at that time he agreed to KUB, barium swallow and thoracic CT-each intervention was explained to patient.? Patient got the KUB but was worried about the CT and eventually refused CT).? Patient refused an IV fluids for the same reason saying it is not going to help. Patient has a thoracic aneurysm and has not been taking his metoprolol or amlodipine saying he is unable to swallow.? Senior Policy Associate discussed with patient who understands the need for these medications for his thoracic aneurysm however He refuses IV metoprolol saying it's not going to help...? Nothing is going to help....? You can not fix me.... -patient reported that he did make urine today, that it was brown and bubbly Senior Policy Associate, Patient and mother and father discussed healthcare proxy and patient was initially ambivalent.? Senior Policy Associate explained the details of healthcare proxy;? patient asked appropriate questions and expressed he understood and said he trusts his parents and that they are great. Patient signed healthcare proxy designating his mother and than his father as alternate. Discussed case with Hospitalist Dr. Hernandez, Dr. Law (GI) and joy operator helper Dr. Serrano -Barrium swallow on hold to first r/o obstruction (per amrik Law) with KUB -KUB ordered (per Dr. Law): unremarkable -CT chest/angio/aortic ordered with IV contrast to r/o worsening thoracic aneurysm (per dr. Serrano-though considers this unlikely); pt refused -fleet enema ordered: refused 03/20 Patient remains delusional 03/21 Remains delusoinal. He was able to drink some, small amount of fluid; refused IV; again discussed w/ patient consequences of refusal but he maintains that it won't help anyway. 03/22 seems more depressed today and does not respond with anxious lament when approached with questions.? Remains delusional and refuses IV or any kind of medication or treatment.? He seems to agree to continue allowing lab work for monitoring kidney functions. -potassium mildly low today -BUN/creatinine WNL 03/23 patient remains with paranoid delusional thinking regarding his physical health.? He is trying to eat and drink and has been able to keep of food and fluids down.? He continues to refuse medication of any kind, including medications prescribed by joy operator helper to prevent thoracic aneurysm from worsening.? Both patient's parents/healthcare proxy want him to take medications including metoprolol and amlodipine. -lytes: WNL -BUN creatinine: WNL -patient is taking in enough fluid that his kidney function remains intact and at this time patient appears stable without IV fluids -he refuses IV for fluids, refuses thoracic CT, refuses barium swallow, refuses Fleet enema, refuses occult stool test; intermittently refuses labs; refuses all medication including IM and SL); thus far he has allowed labwork to monitor for kidney function.? Patient's anxiety is chronic but has reached a psychotic level and patient does not have the capacity to make medical decisions for himself. Patient has a detailed history of seeking treatment for his ailments. However, now he is disorganized; he says he wants to eat and drink, does not want to ...wants to live, does not want to damage his kidneys... however he refuses nearly all?treatments/interventions. -check writer salesperson has discussed case w/ hospitalist and PA 03/24 Patient remains delusional and despondent.? He says he is not good and continues to say I do not know what I am going to do I am just lost. Senior Policy Associate discussed reasons to try medications to which patient says it makes sense however he follows up with I just do not know......i'm in bad shape... the only thing I know is that there are no solutions..? I am certain about... Senior Policy Associate later met with patient again while his parents were visiting; patient's parents are urged him to try medications that check writer salesperson is offering however patient adamantly refuses.? He tried to help check writer salesperson and family understand by saying I do not want to , I just know there is not a chance.? It is the only thing left that I do know. ? Family discussion about healthcare proxy and involuntary commitment which patient understands. -Lytes: WNL -BUN/creatinine: WNL -Patient making urine -Patient drank about 2 cups of water by miday and drank and orange juice box; also ate a fruit cup and a tangerine -given labs and fluid intake, patient appears stable without IV fluids 03/25/2022 Patient remains anxious despondent to me a appears to be psychotically depressed somatically delusional and on able to take in information or explain his self cyst drug active and potentially life-threatening behavior if he markedly limits food and fluids based on no rational explanation.? Refusing medical workup.? Patient has upcoming court hearing for retention and treatment plan.? Try to develop therapeutic [place] encourage labs every other day monitor food and fluid intake may intermittently need IV fluids If patient remains acute may benefit from ECT treatment which would have a more acute impact potentially 03/29/22 pt Involuntarily committed with substituted judgment for medication.? Senior Policy Associate discussed this with patient who said nothing is going to help 03/30 patient starting on Zyprexa; unable to believe he can take it p.o. or SL so given IM.? Patient very anxious, does not think anything will help 03/31 Remains delusional; Only Drinking when prompted to do so. Patient agrees there is no chest pain when eating or drinking and that doing so does not make him retch/vomit.? However he continues to assert that he can not drink even when he does so in front of check writer salesperson.? Creatinine bumped up today.? Still within normal limits; Will check daily 04/01 remains delusional; no insight poor judgment; clearly mentally tortured by paranoid delusion. Needs constant prompting to drink; passively allows oral care. Case discussed with Dr. Pérez who agrees with current treatment plan -tachycardic; kidney function still within normal limits; mildly hypernatremic, likely from dehydration; will order CPK for tomorrow although no BRETT 04/02/22 remains with delusional sx. accepted PO meds today. Team is strongly encouraging food and fluids. Responds to consistent encouragement. Met with pt and mother, then parents after their visit. 04/03/22: Continue current plan. 04/04/22: Daily labs and monitoring. Consider possibly decreasing Lorazepam as it may be activating depressive sx. 04/05/22: Patient remains delusional, depressed and anxious; however he is eating and drinking adequately without prompting and lab work remains within normal limits. Patient is also little more communicative. Will start Prozac for anxiety/depression and OCD like symptoms; Prozac is also often used in combination with Zyprexa for treatment of depression. 04/06 continued somatic delusional worries; however continues to eat and drink adequately. Will give medications another day or so and then consider increasing doses 1/6 no change; continues to eat and drink adequately. Kidney function and lytes within normal limits however mildly increased ALT, possibly due to Prozac. Will increase, however will monitor. Choosing to increase Prozac since patient's illness is primarily anxiety though he also has a psychotic depression. Prozac has less side effect risks in general. That said may also eventually increase Zyprexa 04/09 remains psychotically depressed, with pronounced negative symptoms. Will likely increase Zyprexa 04/10 continue current regimen; eating and drinking, however not attending to any other ADLs. 04/11 seems that patient has plateaued; he is eating and drinking and taking medication and with prompting willing to walk the halls but otherwise remains depressed, disheveled, not attending to ADLs including brushing his teeth, bathing changing clothing or getting out of bed unless prompted. Remains with delusional belief that something is irrevocably wrong with his body and that he can't explain it... Not responsive to reality testing. He is overall a little less anxious which is helpful. Will likely increase Zyprexa for continued psychotic depression. Patient had asked what he needs to do for discharge response given his start doing some of the things he would normally do such is bathe, brushes teeth, changes clothes, talk with others... to Which patient responded I do not think I can do that -at this time there is no less secure place for patient to receive treatment. He is eating and drinking but only because food and drink are brought to him; he walks the ahn 2 to 3 times a day but only because he is repeatedly prompted by staff andknows that he will end up getting Lovenox injections daily if he does not; he takes his medications however only because there court ordered. Without around the clock, trained, supportive staff and court-ordered medication, patient would rapidly decompensate. Case discussed with Dr. Pérez and team; will continue with medication titration however ECT is discussed and remains an option. 04/13 no change in presentation; complained of mild chest pain which started last night resolved and then resumed today. Discussed with hospitalist and patient had workup with unremarkable EKG and negative troponins. Will increase Prozac to 30 mg. 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 Symptoms likley formally subdued with alcohol abuse Patient has hx of anxiety started in childhood.? However has functioned in the community with almost no history of psychiatric meds/therapy. No hx of any psychosis or lyn.? 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 Starting this summer patient has undergone a series of stressful events (sisters cancer dx; patients own illness) triggering excessive worry and he's been going to the ED for psychosomatic complaints (along with organic ones); he has become unable to function, along worse, does not drive, not attending to ADLs. His parents agree that given patient's baseline anxiety, all these events combined into overwhelming anxiety and and tipped scales for him decompensate leading to this admission.? Patient is not manic; though he has paranoid, somatic delusions, he has no known history of psychotic illness. Pt's MACIEL/Somatic delusional worries (and possibly OCD) about his organic medical illness have become delusional making it difficult to ascertain what is going on and whether there is an organic component to his complaint that he cannot keep down food or water. Patient has no insight that he has delusional thoughts (he had 1 fleeting moment of insight after Ativan lowered anxiety). Although he can understand possible concerns/consequences of refusing treatment (such risks of worsening kidney function,which he does not want and so he eventually consents to getting blood draws to monitor) his paranoid delusional thinking makes him think all treatments are useless, won't help him and that his situation is hopeless. He is unaware the role his anxiety plays in confounding his thinking, insisting nothing will help, even when some of his complaints could be resolved with something as simple as an enema. uPDATE 04/11/22 Patient has been eating and drinking adequately without need for prompting. He continues to have somatic delusions and with psychotic depression. Not attending to ADLs, lies in bed despondent all day; only walks the halls when prompted PLAN: Section 8b, involuntarily Civilly committed on 03/29.? q15min checks.? Signed HCP on 03/19/22 -COURT AFFIRMED HCP (04/08/2022): HCP's notified: Healthcare proxy invoked and now affirmed by the court. Healthcare proxies are 1st, patient's mother Le and then 2nd his father Chris. Hansen.?OCD/MACIEL/paranoid delusion/somatic disorder?(hx severe anxiety since childhood; coped w/ Etoh abuse; sober 1 yr) -Patient is severely anxious with delusions that someting is very wrong with him that cannot be understood or treated; he has a history of seeking treatment for medical illness and if thinking clearly, would do so now. -He does not want to or harm his body, however he is convinced it Is hopeless.? -INCREASEd Zyprexa/Zydis 15mg daily:? COURT ORDERED; IF REFUSES GIVE IM ZYPREXA (discussed risks/benefits of this medication and antipsychotics to HCP's) -continue Ativan 1 mg t.i.d.; patient is noticeably more interactive after Ativan -INCREASE to Prozac 30 mg daily for anxiety/depression and OCD like symptoms -patient agrees to walk the halls 3 times a day B.?Minimal PO intake fluid/food: resolved:?psychogenic origin (KUB negative; refused barium swallow); initially not drinking or eating -now eating and drinking daily, even without prompting -making urine daily -monitor Bun/Cr and Lytes which thus far remain WNL *as long as he continues to drink fluids, it looks like his kidney function remains stable.? -Ordered oral hygiene care t.i.d. with chlorhexidine mouthwash -if patient reverts back to refusal to drink, continue to evaluate kidney function. May need to consider IV fluids, to avert risk of severe and/or permanent kidney damage. -currently Patient is still making urine and labs reveal kidney function remains WNL -Will continue to assess dehydration however?without fluids patient will at some point risks severe and even permanent kidney damage. -check writer salesperson has discussed case with both Psychiatric Director Dr. Pérez and several hospitalists (listed throughout) -will continue to monitor labs as pt allows -Monitor for clinical signs of dehydration: Dry mucus membranes; Skin turgor, drop in blood pressure/reflex tachycardia; sunken eyes will monitor BMP will monitor for clinical signs of dehydration will monitor PO intake and if making urine C.?Thoracic aneurysm: Patient now taking metoprolol and amlodipine daily consulted with Posting Clerk Dr. Pennington and appreciate recommendations above -initially Pt refuses to allow CT to Assess thoracic aneurysm (last assessed Nov 2021 at 4.3cm; however while he initially c/o of ?sudden onset of substernal upper abdominal pain on eating/drinking, this complaint has resolved making this no longer a concern) Patient educated on: diagnosis, medication risk/benefits and medical condition Informed Consent: understands, does not understand and further education needed Reason for contiued inpatient stay Substantial Risk for: inability to function Time Spent With Patient Time: Total time managing care of this patient today ____ minutes.
[2022-04-13] MEDS: Omeprazole 20 MG CAPSULE.DR PO (15:52)
--- NOTE | 2022-04-13 16:32 | PM.EVENT ---
Documented by User: [email or web address] Taylor 04/13/22 16:39 Event Note Date of Service: 04/13/22 Event Note: Patient seen and evaluated by hospital team for chest pain. Pt complains of epigastric pain that began last night and worsened today. Describes pain as throbbing , non-radiating, and rates 7/10 at its worst. Pain is not constant and not positional. Of note, pt has recently begun eating again after a prolonged period of anoxeria. EKG shows normal sinus rhythm without any evidence of acute ichemia. Troponin negative. Most likely GERD. Should start on omeprazole. Will repeat troponin after 4 hours. Continue to encourage po intake. Time Spent With Patient Time: Total time managing care of this patient today _15___ minutes. Documented by User: Emiliana Hernandez MD 04/16/22 07:36 Event Note Date of Service: 04/16/22
[2022-04-13 18:00] VITALS: BP 116/68; PULSE 89; RESP 16; TEMP 36.6; O2SAT 99
[2022-04-13 19:12] LABS: Troponin-I High Sensitivity < 3.5 ng/L (<3.5-35.0)
[2022-04-13 20:54] VITALS: BP 118/69; PULSE 88; RESP 16; TEMP 36.4; O2SAT 98
[2022-04-14 07:00] VITALS: BMI 48.2
[2022-04-14 08:10] VITALS: BP 92/54; PULSE 62; RESP 16; TEMP 36.7; O2SAT 98
[2022-04-14] MEDS: LORazepam 1 MG TABLET PO ×2 (08:52→16:13)
[2022-04-14] MEDS: FLUoxetine HCl 10 MG CAPSULE 30 MG PO (08:52)
[2022-04-14] MEDS: Omeprazole 20 MG CAPSULE.DR PO ×2 (08:52→16:13)
[2022-04-14] MEDS: amLODIPine Besylate 5 MG TABLET PO (08:53)
[2022-04-14] MEDS: OLANZapine ODT 10 MG TAB.RAPDIS 15 MG TRANSLINGU (08:53)
[2022-04-14 09:03] LABS: Anion Gap 10 (12-20); Carbon Dioxide 28 mmol/L (22-29); Chloride 106 mmol/L (96-108); Potassium 3.2 mmol/L (3.3-5.1); Sodium 141 mmol/L (135-145)
--- NOTE | 2022-04-14 10:23 | P.PNPSI_ITS ---
Subjective Subjective Date of Service: 04/14/22 Reason For Visit: psychosis, delusions of persecution, SI Interim History: Patient denies any chest pain; no nausea or vomiting and he reports he is able to eat and drink without problem. Patient remains lying on the bed, despondent difficult to engage in conversation. Assistant Credit Manager discussed depression with patient who is response was I can not explain it. Assistant Credit Manager also discussed ECT as a potential treatment to which patient said it will not help. Patient only it tends to ADLs with prompting. Assistant Credit Manager asked patient what he thinks about all day as he lies in bed for most of it, hardly talking or interacting w/ anyone. Pt says nothing really and that his mind is mostly blank Mental Status Exam Mental Status Exam Narrative: Pt is alert and oriented; behavior is depressed, lying on bed; little easier with which to engage but mostly reticent; in casual attire, scruffy facial hair, disheveled, malodorous; mood is described as depressed and anxious; affect depressed; improved eye contact; Speech is normal rate, volume and prosody and not pressured; psychomotor retardation present; thought process is goal directed; Thought content is on physical ailments, hopelessness and psychosomatic delusional worries; denies any SI/HI. There is no evidence of perceptual disturbance. Patients insight and judgment are impaired Diagnostics Vital Signs (24Hr): Vital Signs - 24 hr 04/13/22 13:31 04/13/22 14:28 04/13/22 18:00 Temperature 98.1 F 98.0 F 97.9 F Pulse Rate 86 97 89 Respiratory Rate 16 16 16 Blood Pressure 128/78 120/72 116/68 Pulse Oximetry 97 98 99 Oxygen Delivery Method Room Air Room Air Room Air 04/13/22 20:54 04/14/22 08:10 Temperature 97.6 F 98.1 F Pulse Rate 88 62 Respiratory Rate 16 16 Blood Pressure 118/69 92/54 L Pulse Oximetry 98 98 Oxygen Delivery Method Room Air Room Air BMI result Body Mass Index 47.3 Labs 03/17/22 14:30 04/14/22 08:35 Labs: Laboratory Results - last 48 hr 04/13/22 04/13/22 04/13/22 14:03 14:03 18:32 Sodium 141 Potassium 3.2 L Chloride 109 H Carbon Dioxide 23 Anion Gap 12 BUN 12 Creatinine 0.76 Estim Creat Clear Calc 130.6 Estimated GFR > 60 Random Glucose 104 Calcium 9.3 Troponin I High Sens < 3.5 < 3.5 04/14/22 08:35 Sodium 141 Potassium 3.2 L Chloride 106 Carbon Dioxide 28 Anion Gap 10 L BUN Creatinine Estim Creat Clear Calc Estimated GFR Random Glucose Calcium Troponin I High Sens Imaging Radiology Impressions: ITS Impressions KUB X-Ray 03/18/22 16:35 IMPRESSION: Unremarkable examination. Medications Medications Current Medications Acetaminophen (Acetaminophen 325 Mg Tablet) 650 mg PO Q6H PRN PRN Reason: Headache/Pain Mild Scale (1-3) Al Hydroxide/Mg Hydroxide (Magnesium Hydrox/Alum Hydrox 30 Ml Oral.Susp) 30 ml PO Q6H PRN PRN Reason: Heartburn/Nausea Last Admin: 04/13/22 13:17 Dose: 30 ml Amlodipine Besylate (Amlodipine Besylate 5 Mg Tablet) 5 mg PO DAILY [facility]; Protocol Last Admin: 04/14/22 08:53 Dose: 5 mg Fluoxetine HCl (Fluoxetine Hcl 10 Mg Capsule) 30 mg PO DAILY [facility] Last Admin: 04/14/22 08:52 Dose: 30 mg Lorazepam (Lorazepam 2 Mg/Ml Vial) 1 mg IM BID PRN PRN Reason: If refuses PO Lorazepam (Lorazepam 1 Mg Tablet) 1 mg PO BID@0900,1600 [facility] Last Admin: 04/14/22 08:52 Dose: 1 mg Magnesium Hydroxide (Milk Of Magnesia 30 Ml Oral.Susp) 30 ml PO DAILY PRN PRN Reason: Constipation Metoprolol Succinate (Metoprolol Succinate Er 25 Mg Tab.Er.24h) 25 mg PO DAILY [facility]; Protocol Last Admin: 04/14/22 08:53 Dose: Not Given Olanzapine (Olanzapine 10 Mg Vial) 10 mg IM DAILY PRN PRN Reason: if refuses PO Last Admin: 04/01/22 11:32 Dose: 10 mg Olanzapine (Olanzapine Odt 10 Mg Tab.Rapdis) 15 mg TRANSLINGU DAILY [facility] Last Admin: 04/14/22 08:53 Dose: 15 mg Omeprazole (Omeprazole 20 Mg Capsule.Dr) 20 mg PO BID@0630,1630 [facility] Last Admin: 04/14/22 08:52 Dose: 20 mg Polyethylene Glycol (Polyethylene Glycol 3350 17 Gm Powd.Pack) 17 gm PO DAILY PRN PRN Reason: constipation Sodium Biphosphate/Sodium Phosphate (Sodium Phosphate,Stanly-Dibasic 133 Ml Enema) 133 ml MS ONCE PRN PRN Reason: Constipation Trazodone HCl (Trazodone Hcl 50 Mg Tablet) 50 mg PO BEDTIME PRN PRN Reason: Insomnia Allergies Allergies Allergy/AdvReac Type Severity Reaction Status Date / Time No Known Allergies Allergy Verified 03/17/22 16:59 Assessment & Plan Assessment & Plan (1) Somatic delusion disorder: Status: Acute Code(s): F22 - Delusional disorders (2) MDD (major depressive disorder), severe: Status: Acute Code(s): F32.2 - Major depressive disorder, single episode, severe without psychotic features (3) MACIEL (generalized anxiety disorder): Status: Acute Code(s): F41.1 - Generalized anxiety disorder (4) Thoracic aortic aneurysm: Status: Acute Code(s): I71.20 - Thoracic aortic aneurysm, without rupture, unspecified Assessment and Plan: Known chronic thoracic aortic aneurysm without any acute symptoms. This is a chronic condition and there is no acute due to this lesion. It needs to be treated in the long run with medications such as metoprolol and other antihypertensive is a blood pressure remains elevated on metoprolol therapy to reduce she was stressed on the aorta. However is not having any acute symptoms at this point in time. Risk of rupture is very low in mild thoracic aortic aneurysm. His refusal of taking medication appears to be due to lack of understanding as well as his psychiatric condition that prevents him from processing the information. I would concentrate on treating his psychiatric condition so as to then eventually able to understand the need for taking medications. In the long run he will need to be followed as an outpatient by her carton forming machine operator that he was following before. If he has intermittent hypertensive episode which again seems to be driven by acute anxiety, would consider treating the anxiety disorder. Can use metoprolol intramuscularly if needed for acute hypertension. Although patient is currently refusing taking his medication and focus should be try to make him understand to take his medications. There is no relation should between thoracic aortic aneurysm and QT prolongation. Use of psychoactive medication as needed can be used and I do not see any clear contraindication, his EKG done on admission shows normal QTC interval. Usual precautions for QT prolongation with avoidance of other QT prolonging drugs and maintaining electrolytes especially magnesium and potassium in normal range. Also can check QTC interval after initiating psychoactive medications at a known to prolong QT interval. Will follow up if need be. Plan HPI: pt is a 46 yo male with long hx of anxiety, thoracic aneurysm (dx Nov 2021) who presents for severe anxiety in face of difficulty eating/drinking since this past monday. Pt is accompanied by his mother.? -Pt reports that this past monday he stopped being able to eat or drink since it caused pain (pointing to area just below his xiphoid process) and wretching. -hx of severe anxiety -but no hx of psychosis; no hx lyn Patient's parents review timeline events leading up to this admission: Prior to this summer, patient was overall doing fine, worked, drove his car and for the past 2 years had no obvious problems.? Parents agree that patient is drinking likely kept his anxiety down to some degree -September:? sister got diagnosed with melanoma very upsetting for patient -September:? patient had painless hematuria, cystoscopy did have a finding but it was benign -November:? About 4 years ago patient was diagnosed with thoracic aneurysm however he has not followed up.? This past summer he was going to the emergency room multiple times for various problems and eventually agreed to thoracic CT which showed that aneurysm had increased to 4.3 mg -December:? Patient had a severely ingrown toenail which required surgical extraction -January: Patient diagnosed with macular degeneration is right eye -over these months patient has been eating less and less, saying that he had little appetite, did not like the smell of meat and has lost 20 or more lb -March: on Monday patient had bloody stool; 1st bowel movement in a week On Monday patient suddenly had chest pain and subsequent retching after drinking any fluid or eating anything On 02:30 patient went to [place] ED, blood labs were drawn but no imaging or or labs; no fluid; long wait prompted patient to return home but he then came to [place] ED where he got IV fluid HOSPITAL COURSE: .03/19 meeting w/ parents; pt anxious, lamenting that nothing can be done for him, just let him go...asking his parents to just leave him somewhere...Assistant Credit Manager asked where the side of the road? and he says yes. He denies any SI and laments i want to drink i want to eat...i just can't...i can't explain it.. but goes on to repeat that nothing can be done for him.? Patient refuses to believe that technical report writer has seeing other patients who could not eat or drink, saying that this is a unique situation.? Assistant Credit Manager and parents together tried to encourage patient to take another Ativan under his tongue, which helped yesterday however he refused and kept saying it will not help... there is no point (after patient took Ativan under his tongue he was much more reasonable and able to engage with technical report writer and agreed that perhaps he could be helped; at that time he agreed to KUB, barium swallow and thoracic CT-each intervention was explained to patient.? Patient got the KUB but was worried about the CT and eventually refused CT).? Patient refused an IV fluids for the same reason saying it is not going to help. Patient has a thoracic aneurysm and has not been taking his metoprolol or amlodipine saying he is unable to swallow.? Assistant Credit Manager discussed with patient who understands the need for these medications for his thoracic aneurysm however He refuses IV metoprolol saying it's not going to help...? Nothing is going to help....? You can not fix me.... -patient reported that he did make urine today, that it was brown and bubbly Assistant Credit Manager, Patient and mother and father discussed healthcare proxy and patient was initially ambivalent.? Assistant Credit Manager explained the details of healthcare proxy;? patient asked appropriate questions and expressed he understood and said he trusts his parents and that they are great. Patient signed healthcare proxy designating his mother and than his father as alternate. Discussed case with Hospitalist Dr. Hernandez, Dr. Law (GI) and carton forming machine operator Dr. Serrano -[facility] swallow on hold to first r/o obstruction (per amrik Law) with KUB -KUB ordered (per Dr. Law): unremarkable -CT chest/angio/aortic ordered with IV contrast to r/o worsening thoracic aneurysm (per dr. Serrano-though considers this unlikely); pt refused -fleet enema ordered: refused 03/20 Patient remains delusional 03/21 Remains delusoinal. He was able to drink some, small amount of fluid; refused IV; again discussed w/ patient consequences of refusal but he maintains that it won't help anyway. 03/22 seems more depressed today and does not respond with anxious lament when approached with questions.? Remains delusional and refuses IV or any kind of medication or treatment.? He seems to agree to continue allowing lab work for monitoring kidney functions. -potassium mildly low today -BUN/creatinine WNL 03/23 patient remains with paranoid delusional thinking regarding his physical health.? He is trying to eat and drink and has been able to keep of food and fluids down.? He continues to refuse medication of any kind, including medications prescribed by carton forming machine operator to prevent thoracic aneurysm from worsening.? Both patient's parents/healthcare proxy want him to take medications including metoprolol and amlodipine. -lytes: WNL -BUN creatinine: WNL -patient is taking in enough fluid that his kidney function remains intact and at this time patient appears stable without IV fluids -he refuses IV for fluids, refuses thoracic CT, refuses barium swallow, refuses Fleet enema, refuses occult stool test; intermittently refuses labs; refuses all medication including IM and SL); thus far he has allowed labwork to monitor for kidney function.? Patient's anxiety is chronic but has reached a psychotic level and patient does not have the capacity to make medical decisions for himself. Patient has a detailed history of seeking treatment for his ailments. However, now he is disorganized; he says he wants to eat and drink, does not want to ...wants to live, does not want to damage his kidneys... however he refuses nearly all?treatments/interventions. -technical report writer has discussed case w/ hospitalist and PA 03/24 Patient remains delusional and despondent.? He says he is not good and continues to say I do not know what I am going to do I am just lost. Assistant Credit Manager discussed reasons to try medications to which patient says it makes sense however he follows up with I just do not know......i'm in bad shape... the only thing I know is that there are no solutions..? I am certain about... Assistant Credit Manager later met with patient again while his parents were visiting; patient's parents are urged him to try medications that technical report writer is offering however patient adamantly refuses.? He tried to help technical report writer and family understand by saying I do not want to , I just know there is not a chance.? It is the only thing left that I do know. ? Family discussion about healthcare proxy and involuntary commitment which patient understands. -Lytes: WNL -BUN/creatinine: WNL -Patient making urine -Patient drank about 2 cups of water by miday and drank and orange juice box; also ate a fruit cup and a tangerine -given labs and fluid intake, patient appears stable without IV fluids 03/25/2022 Patient remains anxious despondent to me a appears to be psychotically depressed somatically delusional and on able to take in information or explain his self cyst drug active and potentially life-threatening behavior if he markedly limits food and fluids based on no rational explanation.? Refusing medical workup.? Patient has upcoming court hearing for retention and treatment plan.? Try to develop therapeutic [place] encourage labs every other day monitor food and fluid intake may intermittently need IV fluids If patient remains acute may benefit from ECT treatment which would have a more acute impact potentially 03/29/22 pt Involuntarily committed with substituted judgment for medication.? Assistant Credit Manager discussed this with patient who said nothing is going to help 03/30 patient starting on Zyprexa; unable to believe he can take it p.o. or SL so given IM.? Patient very anxious, does not think anything will help 03/31 Remains delusional; Only Drinking when prompted to do so. Patient agrees there is no chest pain when eating or drinking and that doing so does not make him retch/vomit.? However he continues to assert that he can not drink even when he does so in front of technical report writer.? Creatinine bumped up today.? Still within normal limits; Will check daily 04/01 remains delusional; no insight poor judgment; clearly mentally tortured by paranoid delusion. Needs constant prompting to drink; passively allows oral care. Case discussed with Dr. Pérez who agrees with current treatment plan -tachycardic; kidney function still within normal limits; mildly hypernatremic, likely from dehydration; will order CPK for tomorrow although no BRETT 04/02/22 remains with delusional sx. accepted PO meds today. Team is strongly encouraging food and fluids. Responds to consistent encouragement. Met with pt and mother, then parents after their visit. 04/03/22: Continue current plan. 04/04/22: Daily labs and monitoring. Consider possibly decreasing Lorazepam as it may be activating depressive sx. 04/05/22: Patient remains delusional, depressed and anxious; however he is eating and drinking adequately without prompting and lab work remains within normal limits. Patient is also little more communicative. Will start Prozac for anxiety/depression and OCD like symptoms; Prozac is also often used in combination with Zyprexa for treatment of depression. 04/06 continued somatic delusional worries; however continues to eat and drink adequately. Will give medications another day or so and then consider increasing doses 04/08 no change; continues to eat and drink adequately. Kidney function and lytes within normal limits however mildly increased ALT, possibly due to Prozac. Will increase, however will monitor. Choosing to increase Prozac since patient's illness is primarily anxiety though he also has a psychotic depression. Prozac has less side effect risks in general. That said may also eventually increase Zyprexa 04/09 remains psychotically depressed, with pronounced negative symptoms. Will likely increase Zyprexa 04/10 continue current regimen; eating and drinking, however not attending to any other ADLs. 04/11 seems that patient has plateaued; he is eating and drinking and taking medication and with prompting willing to walk the halls but otherwise remains depressed, disheveled, not attending to ADLs including brushing his teeth, bathing changing clothing or getting out of bed unless prompted. Remains with delusional belief that something is irrevocably wrong with his body and that he can't explain it... Not responsive to reality testing. He is overall a little less anxious which is helpful. Will likely increase Zyprexa for continued psychotic depression. Patient had asked what he needs to do for discharge response given his start doing some of the things he would normally do such is bathe, brushes teeth, changes clothes, talk with others... to Which patient responded I do not think I can do that -at this time there is no less secure place for patient to receive treatment. H e is eating and drinking but only because food and drink are brought to him; he walks the ahn 2 to 3 times a day but only because he is repeatedly prompted by staff andknows that he will end up getting Lovenox injections daily if he does not; he takes his medications however only because there court ordered. Without around the clock, trained, supportive staff and court-ordered medication, amena bangura would rapidly decompensate. Case discussed with Dr. Pérez and team; will continue with medication titration however ECT is discussed and remains an option. 04/13 no change in presentation; complained of mild chest pain which started last night resolved and then resumed today. Discussed with hospitalist and patient had workup with unremarkable EKG and negative troponins. Will increase Prozac to 30 mg. 04/14 no chest pain no N/V; remains despondent with psychotic depression; broached the topic of ECT is potential treatment to which patient said it will not help; technical report writer reviewed note by hospitalist TRESSA regarding yesterday's chest pain and technical report writer agrees with conclusion and proposed treatment. Assistant Credit Manager asked patient what he thinks about all day as he lies in bed for most of it, hardly talking or interacting w/ anyone. 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 Symptoms likley formally subdued with alcohol abuse Patient has hx of anxiety started in childhood.? However has functioned in the community with almost no history of psychiatric meds/therapy. No hx of any psychosis or lyn.? 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 Starting this summer patient has undergone a series of stressful events (sisters cancer dx; patients own illness) triggering excessive worry and he's been going to the ED for psychosomatic complaints (along with organic ones); he has become unable to function, along worse, does not drive, not attending to ADLs. His parents agree that given patient's baseline anxiety, all these events combined into overwhelming anxiety and and tipped scales for him decompensate leading to this admission.? Patient is not manic; though he has paranoid, somatic delusions, he has no known history of psychotic illness. Pt's MACIEL/Somatic delusional worries (and possibly OCD) about his organic medical illness have become delusional making it difficult to ascertain what is going on and whether there is an organic component to his complaint that he cannot keep down food or water. Patient has no insight that he has delusional thoughts (he had 1 fleeting moment of insight after Ativan lowered anxiety). Although he can understand possible concerns/consequences of refusing treatment (such risks of worsening kidney function,which he does not want and so he eventually consents to getting blood draws to monitor) his paranoid delusional thinking makes him think all treatments are useless, won't help him and that his situation is hopeless. He is unaware the role his anxiety plays in confounding his thinking, insisting nothing will help, even when some of his complaints could be resolved with something as simple as an enema. UPDATE 04/14/22 Patient has been eating and drinking adequately without need for prompting. Started out as severe anxiety that had become psychotic and produced somatic delusional disorder; anxiety seems to have subsided and patient is more psychotically depressed with delusional somatic beliefs and negative symptoms anhedonia, anergia, avolition. Not attending to ADLs, lies in bed despondent all day; only walks the halls when prompted. Less likely OCD and pt does not c/o intrusive thoughts. PLAN: Section 8b, involuntarily Civilly committed on 03/29.? q15min checks.? Signed HCP on 03/19/22 -COURT AFFIRMED HCP (04/08/2022): HCP's notified: Healthcare proxy invoked and now affirmed by the court. Healthcare proxies are 1st, patient's mother Le and then 2nd his father Luke. Tyrone.?Depression/paranoid delusion/somatic disorder/anxiety?(hx severe anxiety since childhood; coped w/ Etoh abuse; sober 1 yr) -Patient is severely anxious with delusions that someting is very wrong with him that cannot be understood or treated; he has a history of seeking treatment for medical illness and if thinking clearly, would do so now. -He does not want to or harm his body, however he is convinced it Is hopeless.? -INCREASEd Zyprexa/Zydis 15mg daily:? COURT ORDERED; IF REFUSES GIVE IM ZYPREXA (discussed risks/benefits of this medication and antipsychotics to HCP's) -continue Ativan 1 mg t.i.d.; patient is noticeably more interactive after Ativan -INCREASE to Prozac 30 mg daily for anxiety/depression and OCD like symptoms -patient agrees to walk the halls 3 times a day B.?Minimal PO intake fluid/food: RESOLVED:?psychogenic origin (KUB negative; refused barium swallow); initially not drinking or eating -now eating and drinking daily, even without prompting -making urine daily -monitor Bun/Cr and Lytes which thus far remain WNL *as long as he continues to drink fluids, it looks like his kidney function remains stable.? -Ordered oral hygiene care t.i.d. with chlorhexidine mouthwash -if patient reverts back to refusal to drink, continue to evaluate kidney function. May need to consider IV fluids, to avert risk of severe and/or permanent kidney damage. -currently Patient is still making urine and labs reveal kidney function remains WNL -Will continue to assess dehydration however?without fluids patient will at some point risks severe and even permanent kidney damage. -technical report writer has discussed case with both Psychiatric Director Dr. Pérez and several hospitalists (listed throughout) -will continue to monitor labs as pt allows -Monitor for clinical signs of dehydration: Dry mucus membranes; Skin turgor, drop in blood pressure/reflex tachycardia; sunken eyes will monitor BMP will monitor for clinical signs of dehydration will monitor PO intake and if making urine C.?Thoracic aneurysm: Patient now taking metoprolol and amlodipine daily consulted with Music Leader Dr. Pennington and appreciate recommendations above -initially Pt refuses to allow CT to Assess thoracic aneurysm (last assessed Nov 2021 at 4.3cm; however while he initially c/o of ?sudden onset of substernal upper abdominal pain on eating/drinking, this complaint has resolved making this no longer a concern) Patient educated on: diagnosis and ECT Informed Consent: does not understand Reason for contiued inpatient stay Substantial Risk for: inability to function Time Spent With Patient Time: Total time managing care of this patient today ____ minutes.
[2022-04-14 12:00] VITALS: BP 122/67; PULSE 86; RESP 16; TEMP 36.7; O2SAT 98
[2022-04-14 18:37] VITALS: BP 114/66; PULSE 97; TEMP 36.2
[2022-04-15] MEDS: Omeprazole 20 MG CAPSULE.DR PO ×2 (06:15→16:47)
[2022-04-15 07:58] VITALS: BP 100/55; PULSE 72; RESP 16; TEMP 36.8; O2SAT 96
[2022-04-15] MEDS: FLUoxetine HCl 10 MG CAPSULE 30 MG PO (08:23)
[2022-04-15] MEDS: OLANZapine ODT 10 MG TAB.RAPDIS 15 MG TRANSLINGU (08:24)
[2022-04-15] MEDS: LORazepam 1 MG TABLET PO ×2 (08:24→16:47)
[2022-04-15] MEDS: amLODIPine Besylate 5 MG TABLET PO (08:24)
--- NOTE | 2022-04-15 10:25 | HO.PSYCHPN ---
Subjective Subjective Date of Service: 04/15/22 Reason For Visit: psychosis, delusions of persecution, SI Interim History: Awake and alert, Lying on the bed, despondent. Says he is the same. He says I just don't know what is going on with my body... . However, he says he can not explain it. He denies there are any specific problems he can identify, no pain, no discomfort... Finish Remover again broached the topic of depression and he says I know it's not depression... On a positive note patient is going out of the room on his own to get his own meals. Otherwise requires prompting for ADLs. Does walk the ahn 3 times a day as directed Finish Remover again asked patient if he was willing to just sit in the milieu for 10 minutes, not even having to talk to anyone but just sitting in their however he refuses Mental Status Exam Mental Status Exam Narrative: Pt is alert and oriented; behavior is depressed, lying on bed; little easier with which to engage but mostly reticent; in casual attire, scruffy facial hair, disheveled, malodorous; mood is described as depressed; affect depressed; mildly improved eye contact; Speech is normal rate, volume and prosody and not pressured; psychomotor retardation present; thought process is goal directed; Thought content is on physical ailments, hopelessness and psychosomatic delusional worries; denies any SI/HI. There is no evidence of perceptual disturbance. Patients insight and judgment are impaired Diagnostics Vital Signs (24Hr): Vital Signs - 24 hr 04/14/22 12:00 04/14/22 18:37 04/15/22 07:58 Temperature 98.1 F 97.2 F 98.2 F Pulse Rate 86 97 72 Respiratory Rate 16 16 Blood Pressure 122/67 114/66 100/55 L Pulse Oximetry 98 96 Oxygen Delivery Method Room Air Room Air BMI result Body Mass Index 48.2 Labs 03/17/22 14:30 04/14/22 08:35 Labs: Laboratory Results - last 48 hr 04/13/22 04/13/22 04/13/22 14:03 14:03 18:32 Sodium 141 Potassium 3.2 L Chloride 109 H Carbon Dioxide 23 Anion Gap 12 BUN 12 Creatinine 0.76 Estim Creat Clear Calc 130.6 Estimated GFR > 60 Random Glucose 104 Calcium 9.3 Troponin I High Sens < 3.5 < 3.5 04/14/22 08:35 Sodium 141 Potassium 3.2 L Chloride 106 Carbon Dioxide 28 Anion Gap 10 L BUN Creatinine Estim Creat Clear Calc Estimated GFR Random Glucose Calcium Troponin I High Sens Imaging Radiology Impressions: ITS Impressions KUB X-Ray 03/18/22 16:35 IMPRESSION: Unremarkable examination. Medications Medications Current Medications Acetaminophen (Acetaminophen 325 Mg Tablet) 650 mg PO Q6H PRN PRN Reason: Headache/Pain Mild Scale (1-3) Al Hydroxide/Mg Hydroxide (Magnesium Hydrox/Alum Hydrox 30 Ml Oral.Susp) 30 ml PO Q6H PRN PRN Reason: Heartburn/Nausea Last Admin: 04/13/22 13:17 Dose: 30 ml Amlodipine Besylate (Amlodipine Besylate 5 Mg Tablet) 5 mg PO DAILY [facility]; Protocol Last Admin: 04/15/22 08:24 Dose: 5 mg Fluoxetine HCl (Fluoxetine Hcl 10 Mg Capsule) 30 mg PO DAILY [facility] Last Admin: 04/15/22 08:23 Dose: 30 mg Lorazepam (Lorazepam 2 Mg/Ml Vial) 1 mg IM BID PRN PRN Reason: If refuses PO Lorazepam (Lorazepam 1 Mg Tablet) 1 mg PO BID@0900,1600 [facility] Last Admin: 04/15/22 08:24 Dose: 1 mg Magnesium Hydroxide (Milk Of Magnesia 30 Ml Oral.Susp) 30 ml PO DAILY PRN PRN Reason: Constipation Metoprolol Succinate (Metoprolol Succinate Er 25 Mg Tab.Er.24h) 25 mg PO DAILY [facility]; Protocol Last Admin: 04/15/22 08:28 Dose: Not Given Olanzapine (Olanzapine 10 Mg Vial) 10 mg IM DAILY PRN PRN Reason: if refuses PO Last Admin: 04/01/22 11:32 Dose: 10 mg Olanzapine (Olanzapine Odt 10 Mg Tab.Rapdis) 15 mg TRANSLINGU DAILY [facility] Last Admin: 04/15/22 08:24 Dose: 15 mg Omeprazole (Omeprazole 20 Mg Capsule.Dr) 20 mg PO BID@0630,1630 [facility] Last Admin: 04/15/22 06:15 Dose: 20 mg Polyethylene Glycol (Polyethylene Glycol 3350 17 Gm Powd.Pack) 17 gm PO DAILY PRN PRN Reason: constipation Sodium Biphosphate/Sodium Phosphate (Sodium Phosphate,[place]-Dibasic 133 Ml Enema) 133 ml NC ONCE PRN PRN Reason: Constipation Trazodone HCl (Trazodone Hcl 50 Mg Tablet) 50 mg PO BEDTIME PRN PRN Reason: Insomnia Allergies Allergies Allergy/AdvReac Type Severity Reaction Status Date / Time No Known Allergies Allergy Verified 03/17/22 16:59 Assessment & Plan Assessment & Plan (1) Somatic delusion disorder: Status: Acute Code(s): F22 - Delusional disorders (2) MDD (major depressive disorder), severe: Status: Acute Code(s): F32.2 - Major depressive disorder, single episode, severe without psychotic features (3) MACIEL (generalized anxiety disorder): Status: Acute Code(s): F41.1 - Generalized anxiety disorder (4) Thoracic aortic aneurysm: Status: Acute Code(s): I71.20 - Thoracic aortic aneurysm, without rupture, unspecified Assessment and Plan: Known chronic thoracic aortic aneurysm without any acute symptoms. This is a chronic condition and there is no acute due to this lesion. It needs to be treated in the long run with medications such as metoprolol and other antihypertensive is a blood pressure remains elevated on metoprolol therapy to reduce she was stressed on the aorta. However is not having any acute symptoms at this point in time. Risk of rupture is very low in mild thoracic aortic aneurysm. His refusal of taking medication appears to be due to lack of understanding as well as his psychiatric condition that prevents him from processing the information. I would concentrate on treating his psychiatric condition so as to then eventually able to understand the need for taking medications. In the long run he will need to be followed as an outpatient by her mail officer that he was following before. If he has intermittent hypertensive episode which again seems to be driven by acute anxiety, would consider treating the anxiety disorder. Can use metoprolol intramuscularly if needed for acute hypertension. Although patient is currently refusing taking his medication and focus should be try to make him understand to take his medications. There is no relation should between thoracic aortic aneurysm and QT prolongation. Use of psychoactive medication as needed can be used and I do not see any clear contraindication, his EKG done on admission shows normal QTC interval. Usual precautions for QT prolongation with avoidance of other QT prolonging drugs and maintaining electrolytes especially magnesium and potassium in normal range. Also can check QTC interval after initiating psychoactive medications at a known to prolong QT interval. Will follow up if need be. Plan HPI: pt is a 46 yo male with long hx of anxiety, thoracic aneurysm (dx Nov 2021) who presents for severe anxiety in face of difficulty eating/drinking since this past monday. Pt is accompanied by his mother.? -Pt reports that this past monday he stopped being able to eat or drink since it caused pain (pointing to area just below his xiphoid process) and wretching. -hx of severe anxiety -but no hx of psychosis; no hx lyn Patient's parents review timeline events leading up to this admission: Prior to this summer, patient was overall doing fine, worked, drove his car and for the past 2 years had no obvious problems.? Parents agree that patient is drinking likely kept his anxiety down to some degree -September:? sister got diagnosed with melanoma very upsetting for patient -September:? patient had painless hematuria, cystoscopy did have a finding but it was benign -November:? About 4 years ago patient was diagnosed with thoracic aneurysm however he has not followed up.? This past summer he was going to the emergency room multiple times for various problems and eventually agreed to thoracic CT which showed that aneurysm had increased to 4.3 mg -December:? Patient had a severely ingrown toenail which required surgical extraction -January: Patient diagnosed with macular degeneration is right eye -over these months patient has been eating less and less, saying that he had little appetite, did not like the smell of meat and has lost 20 or more lb -March: on Monday patient had bloody stool; 1st bowel movement in a week On Monday patient suddenly had chest pain and subsequent retching after drinking any fluid or eating anything On 02:30 patient went to [facility] ED, blood labs were drawn but no imaging or or labs; no fluid; long wait prompted patient to return home but he then came to [facility] where he got IV fluid HOSPITAL COURSE: .03/19 meeting w/ parents; pt anxious, lamenting that nothing can be done for him, just let him go...asking his parents to just leave him somewhere...Finish Remover asked where the side of the road? and he says yes. He denies any SI and laments i want to drink i want to eat...i just can't...i can't explain it.. but goes on to repeat that nothing can be done for him.? Patient refuses to believe that health underwriter has seeing other patients who could not eat or drink, saying that this is a unique situation.? Finish Remover and parents together tried to encourage patient to take another Ativan under his tongue, which helped yesterday however he refused and kept saying it will not help... there is no point (after patient took Ativan under his tongue he was much more reasonable and able to engage with health underwriter and agreed that perhaps he could be helped; at that time he agreed to KUB, barium swallow and thoracic CT-each intervention was explained to patient.? Patient got the KUB but was worried about the CT and eventually refused CT).? Patient refused an IV fluids for the same reason saying it is not going to help. Patient has a thoracic aneurysm and has not been taking his metoprolol or amlodipine saying he is unable to swallow.? Finish Remover discussed with patient who understands the need for these medications for his thoracic aneurysm however He refuses IV metoprolol saying it's not going to help...? Nothing is going to help....? You can not fix me.... -patient reported that he did make urine today, that it was brown and bubbly Finish Remover, Patient and mother and father discussed healthcare proxy and patient was initially ambivalent.? Finish Remover explained the details of healthcare proxy;? patient asked appropriate questions and expressed he understood and said he trusts his parents and that they are great. Patient signed healthcare proxy designating his mother and than his father as alternate. Discussed case with Hospitalist Dr. Hernandez, Dr. Law (GI) and mail [facility] to first r/o obstruction (per amrik Law) with KUB -KUB ordered (per Dr. Law): unremarkable -CT chest/angio/aortic ordered with IV contrast to r/o worsening thoracic aneurysm (per dr. Serrano-though considers this unlikely); pt refused -fleet enema ordered: refused 03/20 Patient remains delusional 03/21 Remains delusoinal. He was able to drink some, small amount of fluid; refused IV; again discussed w/ patient consequences of refusal but he maintains that it won't help anyway. 03/22 seems more depressed today and does not respond with anxious lament when approached with questions.? Remains delusional and refuses IV or any kind of medication or treatment.? He seems to agree to continue allowing lab work for monitoring kidney functions. -potassium mildly low today -BUN/creatinine WNL 03/23 patient remains with paranoid delusional thinking regarding his physical health.? He is trying to eat and drink and has been able to keep of food and fluids down.? He continues to refuse medication of any kind, including medications prescribed by mail officer to prevent thoracic aneurysm from worsening.? Both patient's parents/healthcare proxy want him to take medications including metoprolol and amlodipine. -lytes: WNL -BUN creatinine: WNL -patient is taking in enough fluid that his kidney function remains intact and at this time patient appears stable without IV fluids -he refuses IV for fluids, refuses thoracic CT, refuses barium swallow, refuses Fleet enema, refuses occult stool test; intermittently refuses labs; refuses all medication including IM and SL); thus far he has allowed labwork to monitor for kidney function.? Patient's anxiety is chronic but has reached a psychotic level and patient does not have the capacity to make medical decisions for himself. Patient has a detailed history of seeking treatment for his ailments. However, now he is disorganized; he says he wants to eat and drink, does not want to ...wants to live, does not want to damage his kidneys... however he refuses nearly all?treatments/interventions. -health underwriter has discussed case w/ hospitalist and PA 03/24 Patient remains delusional and despondent.? He says he is not good and continues to say I do not know what I am going to do I am just lost. Finish Remover discussed reasons to try medications to which patient says it makes sense however he follows up with I just do not know......i'm in bad shape... the only thing I know is that there are no solutions..? I am certain about... Finish Remover later met with patient again while his parents were visiting; patient's parents are urged him to try medications that health underwriter is offering however patient adamantly refuses.? He tried to help health underwriter and family understand by saying I do not want to , I just know there is not a chance.? It is the only thing left that I do know. ? Family discussion about healthcare proxy and involuntary commitment which patient understands. -Lytes: WNL -BUN/creatinine: WNL -Patient making urine -Patient drank about 2 cups of water by miday and drank and orange juice box; also ate a fruit cup and a tangerine -given labs and fluid intake, patient appears stable without IV fluids 03/25/2022 Patient remains anxious despondent to me a appears to be psychotically depressed somatically delusional and on able to take in information or explain his self cyst drug active and potentially life-threatening behavior if he markedly limits food and fluids based on no rational explanation.? Refusing medical workup.? Patient has upcoming court hearing for retention and treatment plan.? Try to develop therapeutic [place] encourage labs every other day monitor food and fluid intake may intermittently need IV fluids If patient remains acute may benefit from ECT treatment which would have a more acute impact potentially 03/29/22 pt Involuntarily committed with substituted judgment for medication.? Finish Remover discussed this with patient who said nothing is going to help 03/30 patient starting on Zyprexa; unable to believe he can take it p.o. or SL so given IM.? Patient very anxious, does not think anything will help 03/31 Remains delusional; Only Drinking when prompted to do so. Patient agrees there is no chest pain when eating or drinking and that doing so does not make him retch/vomit.? However he continues to assert that he can not drink even when he does so in front of health underwriter.? Creatinine bumped up today.? Still within normal limits; Will check daily 04/01 remains delusional; no insight poor judgment; clearly mentally tortured by paranoid delusion. Needs constant prompting to drink; passively allows oral care. Case discussed with Dr. Pérez who agrees with current treatment plan -tachycardic; kidney function still within normal limits; mildly hypernatremic, likely from dehydration; will order CPK for tomorrow although no BRETT 04/02/22 remains with delusional sx. accepted PO meds today. Team is strongly encouraging food and fluids. Responds to consistent encouragement. Met with pt and mother, then parents after their visit. 04/03/22: Continue current plan. 04/04/22: Daily labs and monitoring. Consider possibly decreasing Lorazepam as it may be activating depressive sx. 04/05/22: Patient remains delusional, depressed and anxious; however he is eating and drinking adequately without prompting and lab work remains within normal limits. Patient is also little more communicative. Will start Prozac for anxiety/depression and OCD like symptoms; Prozac is also often used in combination with Zyprexa for treatment of depression. 04/06 continued somatic delusional worries; however continues to eat and drink adequately. Will give medications another day or so and then consider increasing doses 04/08 no change; continues to eat and drink adequately. Kidney function and lytes within normal limits however mildly increased ALT, possibly due to Prozac. Will increase, however will monitor. Choosing to increase Prozac since patient's illness is primarily anxiety though he also has a psychotic depression. Prozac has less side effect risks in general. That said may also eventually increase Zyprexa 04/09 remains psychotically depressed, with pronounced negative symptoms. Will likely increase Zyprexa 04/10 continue current regimen; eating and drinking, however not attending to any other ADLs. 04/11 seems that patient has plateaued; he is eating and drinking and taking medication and with prompting willing to walk the halls but otherwise remains depressed, disheveled, not attending to ADLs including brushing his teeth, bathing changing clothing or getting out of bed unless prompted. Remains with delusional belief that something is irrevocably wrong with his body and that he can't explain it... Not responsive to reality testing. He is overall a little less anxious which is helpful. Will likely increase Zyprexa for continued psychotic depression. Patient had asked what he needs to do for discharge response given his start doing some of the things he would normally do such is bathe, brushes teeth, changes clothes, talk with others... to Which patient responded I do not think I can do that -at this time there is no less secure place for patient to receive treatment. He is eating and drinking but only because food and drink are brought to him; he walks the ahn 2 to 3 times a day but only because he is repeatedly prompted by staff andknows that he will end up getting Lovenox injections daily if he does not; he takes his medications however only because there court ordered. Without around the clock, trained, supportive staff and court-ordered medication, patient would rapidly decompensate. Case discussed with Dr. Pérez and team; will continue with medication titration however ECT is discussed and remains an option. 04/13 no change in presentation; complained of mild chest pain which started last night resolved and then resumed today. Discussed with hospitalist and patient had workup with unremarkable EKG and negative troponins. Will increase Prozac to 30 mg. 04/14 no chest pain no N/V; remains despondent with psychotic depression; broached the topic of ECT is potential treatment to which patient said it will not help; health underwriter reviewed note by hospitalist PA regarding yesterday's chest pain and health underwriter agrees with conclusion and proposed treatment. Finish Remover asked patient what he thinks about all day as he lies in bed for most of it, hardly talking or interacting w/ anyone. Pt says nothing really and that his mind is mostly blank about during the day as he spends all of it lying in bed by himself not really talking to anyone, which makes OCD less likely 04/15 remains depressed; no insight; will increase Zyprexa to 20 and Prozac to [address] Pérez who agrees with this plan and is also starting to wonder if ECT might be necessary. 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 Symptoms likley formally subdued with alcohol abuse Patient has hx of anxiety started in childhood.? However has functioned in the community with almost no history of psychiatric meds/therapy. No hx of any psychosis or lyn.? 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 Starting this summer patient has undergone a series of stressful events (sisters cancer dx; patients own illness) triggering excessive worry and he's been going to the ED for psychosomatic complaints (along with organic ones); he has become unable to function, along worse, does not drive, not attending to ADLs. His parents agree that given patient's baseline anxiety, all these events combined into overwhelming anxiety and and tipped scales for him decompensate leading to this admission.? Patient is not manic; though he has paranoid, somatic delusions, he has no known history of psychotic illness. Pt's MACIEL/Somatic delusional worries (and possibly OCD) about his organic medical illness have become delusional making it difficult to ascertain what is going on and whether there is an organic component to his complaint that he cannot keep down food or water. Patient has no insight that he has delusional thoughts (he had 1 fleeting moment of insight after Ativan lowered anxiety). Although he can understand possible concerns/consequences of refusing treatment (such risks of worsening kidney function,which he does not want and so he eventually consents to getting blood draws to monitor) his paranoid delusional thinking makes him think all treatments are useless, won't help him and that his situation is hopeless. He is unaware the role his anxiety plays in confounding his thinking, insisting nothing will help, even when some of his complaints could be resolved with something as simple as an enema. UPDATE 04/14/22 Patient has been eating and drinking adequately without need for prompting. Started out as severe anxiety that had become psychotic and produced somatic delusional disorder; anxiety seems to have subsided and patient is more psychotically depressed with delusional somatic beliefs and negative symptoms anhedonia, anergia, avolition. Not attending to ADLs, lies in bed despondent all day; only walks the halls when prompted. Less likely OCD and pt does not c/o intrusive thoughts. PLAN: Section 8b, involuntarily Civilly committed on 03/29.? q15min checks.? Signed HCP on 03/19/22 -COURT AFFIRMED HCP (04/08/2022): HCP's notified: Healthcare proxy invoked and now affirmed by the court. Healthcare proxies are 1st, patient's mother Le and then 2nd his father Chris. Hansen.?Depression/paranoid delusion/somatic disorder/anxiety?(hx severe anxiety since childhood; coped w/ Etoh abuse; sober 1 yr) -Patient is severely anxious with delusions that someting is very wrong with him that cannot be understood or treated; he has a history of seeking treatment for medical illness and if thinking clearly, would do so now. -He does not want to or harm his body, however he is convinced it Is hopeless.? -INCREASE to Zyprexa/Zydis 20mg daily:? COURT ORDERED; IF REFUSES GIVE IM ZYPREXA (discussed risks/benefits of this medication and antipsychotics to HCP's) -continue Ativan 1 mg BID; patient is noticeably more interactive after Ativan -INCREASE to Prozac 40 mg daily for anxiety/depression and OCD like symptoms -patient agrees to walk the halls 3 times a day -ECT considered vs change to abilify, other med options B. Patient now eating and drinking adequately?(Minimal PO intake fluid/food: RESOLVED:?psychogenic origin) -now eating and drinking daily, even without prompting -making urine daily; Bun/Cr and Lytes remain WNL? -Ordered oral hygiene care t.i.d. with chlorhexidine mouthwash -if patient reverts back to refusal to drink, continue to evaluate kidney function. May need to consider IV fluids, to avert risk of severe and/or permanent kidney damage. -currently Patient is still making urine and labs reveal kidney function remains WNL -Will continue to assess dehydration however?without fluids patient will at some point risks severe and even permanent kidney damage. -health underwriter has discussed case with both Psychiatric Director Dr. Pérez and several hospitalists (listed throughout) -will continue to monitor labs as pt allows C.?Thoracic aneurysm: Patient now taking metoprolol and amlodipine daily consulted with Lmft Dr. Pennington and appreciate recommendations above -initially Pt refuses to allow CT to Assess thoracic aneurysm (last assessed Nov 2021 at 4.3cm; however while he initially c/o of ?sudden onset of substernal upper abdominal pain on eating/drinking, this complaint has resolved making this no longer a concern) Patient educated on: diagnosis and therapeutic strategies Informed Consent: does not understand Reason for contiued inpatient stay Substantial Risk for: inability to function Time Spent With Patient Time: Total time managing care of this patient today ____ minutes.
[2022-04-15 12:00] VITALS: BP 118/72; PULSE 86; RESP 16; TEMP 36.7; O2SAT 98
[2022-04-16 08:00] VITALS: BP 112/74; PULSE 87; RESP 16; TEMP 36.6; O2SAT 96
[2022-04-16] MEDS: LORazepam 1 MG TABLET PO ×2 (09:26→16:10)
[2022-04-16] MEDS: FLUoxetine HCl 20 MG CAPSULE 40 MG PO (09:26)
[2022-04-16] MEDS: Omeprazole 20 MG CAPSULE.DR PO ×2 (09:26→16:10)
[2022-04-16] MEDS: Metoprolol Succinate ER 25 MG TAB.ER.24H PO (09:26)
[2022-04-16] MEDS: amLODIPine Besylate 5 MG TABLET PO (09:26)
--- NOTE | 2022-04-16 10:36 | P.PNPSI_ITS ---
Subjective Subjective Date of Service: 04/16/22 Reason For Visit: psychosis, delusions of persecution, SI Interim History: Patient says he has the same. Discussed increase in Prozac and Zyprexa and that greeting card writer so switched to bedtime. Patient initially says he would rather have it during the day but agreed to have it at bedtime for today, as greeting card writer wanted to make sure it is not causing any daytime sedation. Otherwise no change in presentation Steam And Power Supervisor talked to patient's mother and father/healthcare proxies and discussed treatment plan, increasing medications and potential for ECT. Mental Status Exam Mental Status Exam Narrative: Pt is alert and oriented; behavior is depressed, lying on bed; little easier with which to engage but mostly reticent; in casual attire, scruffy facial hair, disheveled, malodorous; mood is described as depressed; affect depressed; mildly improved eye contact; Speech is normal rate, volume and prosody and not pressured; psychomotor retardation present; thought process is goal directed; Thought content is on physical ailments, hopelessness and psychosomatic delusional worries; denies any SI/HI. There is no evidence of perceptual disturbance. Patients insight and judgment are impaired Diagnostics Vital Signs (24Hr): Vital Signs - 24 hr 04/15/22 12:00 04/16/22 08:00 Temperature 98.1 F 97.9 F Pulse Rate 86 87 Respiratory Rate 16 16 Blood Pressure 118/72 112/74 Pulse Oximetry 98 96 Oxygen Delivery Method Room Air Room Air BMI result Body Mass Index 48.2 Labs 03/17/22 14:30 04/14/22 08:35 Imaging Radiology Impressions: ITS Impressions KUB X-Ray 03/18/22 16:35 IMPRESSION: Unremarkable examination. Medications Medications Current Medications Acetaminophen (Acetaminophen 325 Mg Tablet) 650 mg PO Q6H PRN PRN Reason: Headache/Pain Mild Scale (1-3) Al Hydroxide/Mg Hydroxide (Magnesium Hydrox/Alum Hydrox 30 Ml Oral.Susp) 30 ml PO Q6H PRN PRN Reason: Heartburn/Nausea Last Admin: 04/13/22 13:17 Dose: 30 ml Amlodipine Besylate (Amlodipine Besylate 5 Mg Tablet) 5 mg PO DAILY [place]; Protocol Last Admin: 04/16/22 09:26 Dose: 5 mg Fluoxetine HCl (Fluoxetine Hcl 20 Mg Capsule) 40 mg PO DAILY [facility] Last Admin: 04/16/22 09:26 Dose: 40 mg Lorazepam (Lorazepam 2 Mg/Ml Vial) 1 mg IM BID PRN PRN Reason: If refuses PO Lorazepam (Lorazepam 1 Mg Tablet) 1 mg PO BID@0900,1600 [facility] Last Admin: 04/16/22 09:26 Dose: 1 mg Magnesium Hydroxide (Milk Of Magnesia 30 Ml Oral.Susp) 30 ml PO DAILY PRN PRN Reason: Constipation Metoprolol Succinate (Metoprolol Succinate Er 25 Mg Tab.Er.24h) 25 mg PO DAILY [facility]; Protocol Last Admin: 04/16/22 09:26 Dose: 25 mg Olanzapine (Olanzapine 10 Mg Vial) 10 mg IM DAILY PRN PRN Reason: if refuses PO Last Admin: 04/01/22 11:32 Dose: 10 mg Olanzapine (Olanzapine Odt 10 Mg Tab.Rapdis) 20 mg TRANSLINGU BEDTIME [facility] Omeprazole (Omeprazole 20 Mg Capsule.Dr) 20 mg PO BID@0630,1630 [facility] Last Admin: 04/16/22 09:26 Dose: 20 mg Polyethylene Glycol (Polyethylene Glycol 3350 17 Gm Powd.Pack) 17 gm PO DAILY PRN PRN Reason: constipation Sodium Biphosphate/Sodium Phosphate (Sodium Phosphate,[place]-Dibasic 133 Ml Enema) 133 ml [place] ONCE PRN PRN Reason: Constipation Trazodone HCl (Trazodone Hcl 50 Mg Tablet) 50 mg PO BEDTIME PRN PRN Reason: Insomnia Allergies Allergies Allergy/AdvReac Type Severity Reaction Status Date / Time No Known Allergies Allergy Verified 03/17/22 16:59 Assessment & Plan Assessment & Plan (1) Somatic delusion disorder: Status: Acute Code(s): F22 - Delusional disorders (2) MDD (major depressive disorder), severe: Status: Acute Code(s): F32.2 - Major depressive disorder, single episode, severe without psychotic features (3) MACIEL (generalized anxiety disorder): Status: Acute Code(s): F41.1 - Generalized anxiety disorder (4) Thoracic aortic aneurysm: Status: Acute Code(s): I71.20 - Thoracic aortic aneurysm, without rupture, unspecified Assessment and Plan: Known chronic thoracic aortic aneurysm without any acute symptoms. This is a chronic condition and there is no acute due to this lesion. It needs to be treated in the long run with medications such as metoprolol and other antihypertensive is a blood pressure remains elevated on metoprolol therapy to reduce she was stressed on the aorta. However is not having any acute symptoms at this point in time. Risk of rupture is very low in mild thoracic aortic aneurysm. His refusal of taking medication appears to be due to lack of understanding as well as his psychiatric condition that prevents him from processing the information. I would concentrate on treating his psychiatric condition so as to then eventually able to understand the need for taking medications. In the long run he will need to be followed as an outpatient by her steam service inspector that he was following before. If he has intermittent hypertensive episode which again seems to be driven by acute anxiety, would consider treating the anxiety disorder. Can use metoprolol intramuscularly if needed for acute hypertension. Although patient is currently refusing taking hi s medication and focus should be try to make him understand to take his medications. There is no relation should between thoracic aortic aneurysm and QT prolongation. Use of psychoactive medication as needed can be used and I do not see any clear contraindication, his EKG done on admission shows normal QTC interval. Usual precautions for QT prolongation with avoidance of other QT prolonging drugs and maintaining electrolytes especially magnesium and potassium in normal range. Also can check QTC interval after initiating psychoactive medications at a known to prolong QT interval. Will follow up if need be. Plan HPI: pt is a 46 yo male with long hx of anxiety, thoracic aneurysm (dx Nov 2021) who presents for severe anxiety in face of difficulty eating/drinking since this past monday. Pt is accompanied by his mother.? -Pt reports that this past monday he stopped being able to eat or drink since it caused pain (pointing to area just below his xiphoid process) and wretching. -hx of severe anxiety -but no hx of psychosis; no hx lyn Patient's parents review timeline events leading up to this admission: Prior to this summer, patient was overall doing fine, worked, drove his car and for the past 2 years had no obvious problems.? Parents agree that patient is drinking likely kept his anxiety down to some degree -September:? sister got diagnosed with melanoma very upsetting for patient -September:? patient had painless hematuria, cystoscopy did have a finding but it was benign -November:? About 4 years ago patient was diagnosed with thoracic aneurysm however he has not followed up.? This past summer he was going to the emergency room multiple times for various problems and eventually agreed to thoracic CT which showed that aneurysm had increased to 4.3 mg -December:? Patient had a severely ingrown toenail which required surgical extraction -January: Patient diagnosed with macular degeneration is right eye -over these months patient has been eating less and less, saying that he had little appetite, did not like the smell of meat and has lost 20 or more lb -March: on Monday patient had bloody stool; 1st bowel movement in a week On Monday patient suddenly had chest pain and subsequent retching after dr inking any fluid or eating anything On 02:30 patient went to [facility] ED, blood labs were drawn but no imaging or or labs; no fluid; long wait prompted patient to return home but he then came to [facility] where he got IV fluid HOSPITAL COURSE: .03/19 meeting w/ parents; pt anxious, lamenting that nothing can be done for him, just let him go...asking his parents to just leave him somewhere...Steam And Power Supervisor asked where the side of the road? and he says yes. He denies any SI and laments i want to drink i want to eat...i just can't...i can't explain it.. but goes on to repeat that nothing can be done for him.? Patient refuses to believe that greeting card writer has seeing other patients who could not eat or drink, saying that this is a unique situation.? Steam And Power Supervisor and parents together tried to encourage patient to take another Ativan under his tongue, which helped yesterday however he refused and kept saying it will not help... there is no point (after patient took Ativan under his tongue he was much more reasonable and able to engage with greeting card writer and agreed that perhaps he could be helped; at that time he agreed to KUB, barium swallow and thoracic CT-each intervention was explained to patient.? Patient got the KUB but was worried about the CT and eventually refused CT).? Patient refused an IV fluids for the same reason saying it is not going to help. Patient has a thoracic aneurysm and has not been taking his metoprolol or amlodipine saying he is unable to swallow.? Steam And Power Supervisor discussed with patient who understands the need for these medications for his thoracic aneurysm however He refuses IV metoprolol saying it's not going to help...? Nothing is going to help....? You can not fix me.... -patient reported that he did make urine today, that it was brown and bubbly Steam And Power Supervisor, Patient and mother and father discussed healthcare proxy and patient was initially ambivalent.? Steam And Power Supervisor explained the details of healthcare proxy;? patient asked appropriate questions and expressed he understood and said he trusts his parents and that they are great. Patient signed healthcare proxy designating his mother and than his father as alternate. Discussed case with Hospitalist Dr. Hernandez, Dr. Law (GI) and steam service inspector Dr. Serrano -Barrium swallow on hold to first r/o obstruction (per amrik Law) with KUB -KUB ordered (per Dr. Law): unremarkable -CT chest/angio/aortic ordered with IV contrast to r/o worsening thoracic aneurysm (per dr. Serrano-though considers this unlikely); pt refused -fleet enema ordered: refused 03/20 Patient remains delusional 03/21 Remains delusoinal. He was able to drink some, small amount of fluid; refused IV; again discussed w/ patient consequences of refusal but he maintains that it won't help anyway. 03/22 seems more depressed today and does not respond with anxious lament when approached with questions.? Remains delusional and refuses IV or any kind of medication or treatment.? He seems to agree to continue allowing lab work for monitoring kidney functions. -potassium mildly low today -BUN/creatinine WNL 03/23 patient remains with paranoid delusional thinking regarding his physical health.? He is trying to eat and drink and has been able to keep of food and fluids down.? He continues to refuse medication of any kind, including medications prescribed by steam service inspector to prevent thoracic aneurysm from worsening.? Both patient's parents/healthcare proxy want him to take medications including metoprolol and amlodipine. -lytes: WNL -BUN creatinine: WNL -patient is taking in enough fluid that his kidney function remains intact and at this time patient appears stable without IV fluids -he refuses IV for fluids, refuses thoracic CT, refuses barium swallow, refuses Fleet enema, refuses occult stool test; intermittently refuses labs; refuses all medication including IM and SL); thus far he has allowed labwork to monitor for kidney function.? Patient's anxiety is chronic but has reached a psychotic level and patient does not have the capacity to make medical decisions for himself. Patient has a detailed history of seeking treatment for his ailments. However, now he is disorganized; he says he wants to eat and drink, does not want to ...wants to live, does not want to damage his kidneys... however he refuses nearly all?treatments/interventions. -greeting card writer has discussed case w/ hospitalist and PA 03/24 Patient remains delusional and despondent.? He says he is not good and continues to say I do not know what I am going to do I am just lost. Steam And Power Supervisor discussed reasons to try medications to which patient says it makes sense however he follows up with I just do not know......i'm in bad shape... the only thing I know is that there are no solutions..? I am certain about... Steam And Power Supervisor later met with patient again while his parents were visiting; patient's parents are urged him to try medications that greeting card writer is offering however patient adamantly refuses.? He tried to help greeting card writer and family understand by saying I do not want to , I just know there is not a chance.? It is the only thing left that I do know. ? Family discussion about healthcare proxy and involuntary commitment which patient understands. -Lyyohannes: WNL -BUN/creatinine: WNL -Patient making urine -Patient drank about 2 cups of water by miday and drank and orange juice box; also ate a fruit cup and a tangerine -given labs and fluid intake, patient appears stable without IV fluids 03/25/2022 Patient remains anxious despondent to me a appears to be psychotically depressed somatically delusional and on able to take in information or explain his self cyst drug active and potentially life-threatening behavior if he markedly limits food and fluids based on no rational explanation.? Refusing medical workup.? Patient has upcoming court hearing for retention and treatment plan.? Try to develop therapeutic [place] encourage labs every other day monitor food and fluid intake may intermittently need IV fluids If patient remains acute may benefit from ECT treatment which would have a more acute impact potentially 03/29/22 pt Involuntarily committed with substituted judgment for medication.? Steam And Power Supervisor discussed this with patient who said nothing is going to help 03/30 patient starting on Zyprexa; unable to believe he can take it p.o. or SL so given IM.? Patient very anxious, does not think anything will help 03/31 Remains delusional; Only Drinking when prompted to do so. Patient agrees there is no chest pain when eating or drinking and that doing so does not make him retch/vomit.? However he continues to assert that he can not drink even when he does so in front of greeting card writer.? Creatinine bumped up today.? Still within normal limits; Will check daily 04/01 remains delusional; no insight poor judgment; clearly mentally tortured by paranoid delusion. Needs constant prompting to drink; passively allows oral care. Case discussed with Dr. Pérez who agrees with current treatment plan -tachycardic; kidney function still within normal limits; mildly hypernatremic, likely from dehydration; will order CPK for tomorrow although no BRETT 04/02/22 remains with delusional sx. accepted PO meds today. Team is strongly en couraging food and fluids. Responds to consistent encouragement. Met with pt and mother, then parents after their visit. 04/03/22: Continue current plan. 04/04/22: Daily labs and monitoring. Consider possibly decreasing Lorazepam as it may be activating depressive sx. 04/05/22: Patient remains delusional, depressed and anxious; however he is eating and drinking adequately without prompting and lab work remains within normal limits. Patient is also little more communicative. Will start Prozac for anx iety/depression and OCD like symptoms; Prozac is also often used in combination with Zyprexa for treatment of depression. 04/06 continued somatic delusional worries; however continues to eat and drink a dequately. Will give medications another day or so and then consider increasing doses 04/08 no change; continues to eat and drink adequately. Kidney function and lytes within normal limits however mildly increased ALT, possibly due to Prozac. Will increase, however will monitor. Choosing to increase Prozac since patient's illness is primarily anxiety though he also has a psychotic depression. Prozac has less side effect risks in general. That said may also eventually increase Zyprexa 04/09 remains psychotically depressed, with pronounced negative symptoms. Will likely increase Zyprexa 04/10 continue current regimen; eating and drinking, however not attending to any other ADLs. 04/11 seems that patient has plateaued; he is eating and drinking and taking medication and with prompting willing to walk the halls but otherwise remains depressed, disheveled, not attending to ADLs including brushing his teeth, bathing changing clothing or getting out of bed unless prompted. Remains with delusional belief that something is irrevocably wrong with his body and that he can't explain it... Not responsive to reality testing. He is overall a little less anxious which is helpful. Will likely increase Zyprexa for continued psychotic depression. Patient had asked what he needs to do for discharge response given his start doing some of the things he would normally do such is bathe, brushes teeth, changes clothes, talk with others... to Which patient responded I do not think I can do that -at this time there is no less secure place for patient to receive treatment. He is eating and drinking but only because food and drink are brought to him; he walks the ahn 2 to 3 times a day but only because he is repeatedly prompted by staff andknows that he will end up getting Lovenox injections daily if he does not; he takes his medications however only because there court ordered. Without around the clock, trained, supportive staff and court-ordered medication, patient would rapidly decompensate. Case discussed with Dr. Pérez and team; will continue with medication titration however ECT is discussed and remains an option. 04/13 no change in presentation; complained of mild chest pain which started last night resolved and then resumed today. Discussed with hospitalist and patient had workup with unremarkable EKG and negative troponins. Will increase Prozac to 30 mg. 04/14 no chest pain no N/V; remains despondent with psychotic depression; broached the topic of ECT is potential treatment to which patient said it will not help; greeting card writer reviewed note by hospitalist TRESSA regarding yesterday's chest pain and greeting card writer agrees with conclusion and proposed treatment. Steam And Power Supervisor asked pat anyi what he thinks about all day as he lies in bed for most of it, hardly talking or interacting w/ anyone. Pt says nothing really and that his mind is mostly blank about during the day as he spends all of it lying in bed by himself not really talking to anyone, which makes OCD less likely 04/15 remains depressed; no insight; will increase Zyprexa to 20 and Prozac to 40 mg. [address] case [address] Dr[address] Pérez who agrees with this plan and is also starting to wonder if ECT might be necessary. It is possible try other antipsychotic however patient has had psychotic depression for nearly a month and a longer it persists the harder it can be to treat 04/16 continue current treatment plan; will change vitals back to Q b.i.d. 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 Symptoms likley formally subdued with alcohol abuse Patient has hx of anxiety started in childhood.? However has functioned in the community with almost no history of psychiatric meds/therapy. No hx of any psychosis or lyn.? 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 Starting this summer patient has undergone a series of stressful events (sisters cancer dx; patients own illness) triggering excessive worry and he's been going to the ED for psychosomatic complaints (along with organic ones); he has become unable to function, along worse, does not drive, not attending to ADLs. His parents agree that given patient's baseline anxiety, all these events combined into overwhelming anxiety and and tipped scales for him decompensate leading to this admission.? Patient is not manic; though he has paranoid, somatic delusions, he has no known history of psychotic illness. Pt's MACIEL/Somatic delusional worries (and possibly OCD) about his organic medical illness have become delusional making it difficult to ascertain what is going on and whether there is an organic component to his complaint that he cannot keep down food or water. Patient has no insight that he has delusional thoughts (he had 1 fleeting moment of insight after Ativan lowered anxiety). Although he can understand possible concerns/consequences of refusing treatment (such risks of worsening kidney function,which he does not want and so he eventually consents to getting blood draws to monitor) his paranoid delusional thinking makes him think all treatments are useless, won't help him and that his situation is hopeless. He is unaware the role his anxiety plays in confounding his thinking, insisting nothing will help, even when some of his complaints could be resolved with something as simple as an enema. UPDATE 04/14/22 Patient has been eating and drinking adequately without need for prompting. Started out as severe anxiety that had become psychotic and produced somatic delusional disorder; anxiety seems to have subsided and patient is more psycho tically depressed with delusional somatic beliefs and negative symptoms anhedonia, anergia, avolition. Not attending to ADLs, lies in bed despondent all day; only walks the halls when prompted. Less likely OCD and pt does not c/o intrusive thoughts. PLAN: Section 8b, involuntarily Civilly committed on 03/29.? q15min checks.? Signed HCP on 03/19/22 -COURT AFFIRMED HCP (04/08/2022): HCP's notified: Healthcare proxy invoked and now affirmed by the court. Healthcare proxies are 1st, patient's mother Le and then 2nd his father Chris. [place]?Depression/paranoid delusion/somatic disorder/anxiety?(hx severe anxiety s bailee childhood; coped w/ Etoh abuse; sober 1 yr) -Patient is severely anxious with delusions that someting is very wrong with him that cannot be understood or treated; he has a history of seeking treatment for medical illness and if thinking clearly, would do so now. -He does not want to or harm his body, however he is convinced it Is hopeless.? -increase to Zyprexa/Zydis 20mg q.h.s. for now to make sure not causing daytime sedation:? COURT ORDERED; IF REFUSES GIVE IM ZYPREXA (discussed risks/benefits of this medication and antipsychotics to HCP's) -continue Ativan 1 mg BID; patient is noticeably more interactive after Ativan -increased to Prozac 40 mg daily for anxiety/depression and OCD like symptoms -patient agrees to walk the halls 3 times a day -ECT considered vs change to abilify, other med options B. Patient now eating and drinking adequately?(Minimal PO intake fluid/food: RESOLVED:?psychogenic origin) -now eating and drinking daily, even without prompting -making urine daily; Bun/Cr and Lytes remain WNL? -Ordered oral hygiene care t.i.d. with chlorhexidine mouthwash -if patient reverts back to refusal to drink, continue to evaluate kidney function. May need to consider IV fluids, to avert risk of severe and/or perma nent kidney damage. -currently Patient is still making urine and labs reveal kidney function remains WNL -Will continue to assess dehydration however?without fluids patient will at some point risks severe and even permanent kidney damage. -greeting card writer has discussed case with both Psychiatric Director Dr. Pérez and several hospitalists (listed throughout) -will continue to monitor labs as pt allows C.?Thoracic aneurysm: Patient now taking metoprolol and amlodipine daily consulted with [employer] Dr. Pennington and appreciate recommendations above -initially Pt refuses to allow CT to Assess thoracic aneurysm (last assessed Nov 2021 at 4.3cm; however while he initially c/o of ?sudden onset of substernal upper abdominal pain on eating/drinking, this complaint has resolved making this no longer a concern) Guardian/Caregiver educated on: diagnosis, medication risk/benefits, ECT and therapeutic strategies Informed Consent: understands Reason for contiued inpatient stay Substantial Risk for: inability to function Time Spent With Patient Time: Total time managing care of this patient today ____ minutes.
[2022-04-16 18:13] VITALS: BP 106/68; PULSE 74; RESP 16; TEMP 37.2; O2SAT 98
[2022-04-16] MEDS: OLANZapine ODT 10 MG TAB.RAPDIS 20 MG TRANSLINGU (21:49)
[2022-04-17 08:50] VITALS: BP 123/76; PULSE 84; RESP 16; TEMP 36.6; O2SAT 96
[2022-04-17] MEDS: Metoprolol Succinate ER 25 MG TAB.ER.24H PO (08:54)
[2022-04-17] MEDS: FLUoxetine HCl 20 MG CAPSULE 40 MG PO (08:54)
[2022-04-17] MEDS: LORazepam 1 MG TABLET PO ×2 (08:54→16:06)
[2022-04-17] MEDS: Omeprazole 20 MG CAPSULE.DR PO ×2 (08:54→16:06)
[2022-04-17] MEDS: amLODIPine Besylate 5 MG TABLET PO (08:55)
--- NOTE | 2022-04-17 09:37 | P.PNPSI_ITS ---
Subjective Subjective Date of Service: 04/17/22 Reason For Visit: psychosis, delusions of persecution, SI Interim History: Patient volunteered to investment underwriter that he is trying. He says he has already walked 3 times today and he walked 6 times yesterday; he also informed investment underwriter that he has been out of his room to get men use instead of waiting for someone to bring into him. When discussing going into the milieu, he said he might try that today and watch some of the football game. [employer] expressed enthusiasm about patient's efforts who says he will continue to try. Discussed having a family meeting tomorrow with which patient agrees. Mental Status Exam Mental Status Exam Narrative: Pt is alert and oriented; behavior is depressed, lying on bed; little easier with which to engage; in casual attire, scruffy facial hair, disheveled; mood is described as i'm trying affect depressed but less blunted; mildly improved eye contact; Speech is normal rate, volume and prosody and not pressured; psychomotor retardation present but improving; thought process is goal directed; Thought content is on trying to push himself; remains with somatic delusional worries; denies any SI/HI. There is no evidence of perceptual disturbance. Patients insight and judgment are impaired but improving some. Diagnostics Vital Signs (24Hr): Vital Signs - 24 hr 04/16/22 18:13 Temperature 98.9 F Pulse Rate 74 Respiratory Rate 16 Blood Pressure 106/68 Pulse Oximetry 98 Oxygen Delivery Method Room Air BMI result Body Mass Index 48.2 Labs 03/17/22 14:30 04/14/22 08:35 Imaging Radiology Impressions: ITS Impressions KUB X-Ray 03/18/22 16:35 IMPRESSION: Unremarkable examination. Medications Medications Current Medications Acetaminophen (Acetaminophen 325 Mg Tablet) 650 mg PO Q6H PRN PRN Reason: Headache/Pain Mild Scale (1-3) Al Hydroxide/Mg Hydroxide (Magnesium Hydrox/Alum Hydrox 30 Ml Oral.Susp) 30 ml PO Q6H PRN PRN Reason: Heartburn/Nausea Last Admin: 04/13/22 13:17 Dose: 30 ml Amlodipine Besylate (Amlodipine Besylate 5 Mg Tablet) 5 mg PO DAILY [place]; Protocol Last Admin: 04/17/22 08:55 Dose: 5 mg Fluoxetine HCl (Fluoxetine Hcl 20 Mg Capsule) 40 mg PO DAILY [place] Last Admin: 04/17/22 08:54 Dose: 40 mg Lorazepam (Lorazepam 2 Mg/Ml Vial) 1 mg IM BID PRN PRN Reason: If refuses PO Lorazepam (Lorazepam 1 Mg Tablet) 1 mg PO BID@0900,1600 [facility] Last Admin: 04/17/22 08:54 Dose: 1 mg Magnesium Hydroxide (Milk Of Magnesia 30 Ml Oral.Susp) 30 ml PO DAILY PRN PRN Reason: Constipation Metoprolol Succinate (Metoprolol Succinate Er 25 Mg Tab.Er.24h) 25 mg PO DAILY [facility]; Protocol Last Admin: 04/17/22 08:54 Dose: 25 mg Olanzapine (Olanzapine 10 Mg Vial) 10 mg IM DAILY PRN PRN Reason: if refuses PO Last Admin: 04/01/22 11:32 Dose: 10 mg Olanzapine (Olanzapine Odt 10 Mg Tab.Rapdis) 20 mg TRANSLINGU BEDTIME [facility] Last Admin: 04/16/22 21:49 Dose: 20 mg Omeprazole (Omeprazole 20 Mg Capsule.Dr) 20 mg PO BID@0630,1630 [facility] Last Admin: 04/17/22 08:54 Dose: 20 mg Polyethylene Glycol (Polyethylene Glycol 3350 17 Gm Powd.Pack) 17 gm PO DAILY PRN PRN Reason: constipation Sodium Biphosphate/Sodium Phosphate (Sodium Phosphate,[place]-Dibasic 133 Ml Enema) 133 ml HI ONCE PRN PRN Reason: Constipation Trazodone HCl (Trazodone Hcl 50 Mg Tablet) 50 mg PO BEDTIME PRN PRN Reason: Insomnia Allergies Allergies Allergy/AdvReac Type Severity Reaction Status Date / Time No Known Allergies Allergy Verified 03/17/22 16:59 Assessment & Plan Assessment & Plan (1) Somatic delusion disorder: Status: Acute Code(s): F22 - Delusional disorders (2) MDD (major depressive disorder), severe: Status: Acute Code(s): F32.2 - Major depressive disorder, single episode, severe without psychotic features (3) MACIEL (generalized anxiety disorder): Status: Acute Code(s): F41.1 - Generalized anxiety disorder (4) Thoracic aortic aneurysm: Status: Acute Code(s): I71.20 - Thoracic aortic aneurysm, without rupture, unspecified Assessment and Plan: Known chronic thoracic aortic aneurysm without any acute symptoms. This is a chronic condition and there is no acute due to this lesion. It needs to be treated in the long run with medications such as metoprolol and other antihypertensive is a blood pressure remains elevated on metoprolol therapy to reduce she was stressed on the aorta. However is not having any acute symptoms at this point in time. Risk of rupture is very low in mild thoracic aortic aneurysm. His refusal of taking medication appears to be due to lack of understanding as well as his psychiatric condition that prevents him from processing the information. I would concentrate on treating his psychiatric condition so as to then eventually able to understand the need for taking medications. In the long run he will need to be followed as an outpatient by her nutrition professor that he was following before. If he has intermittent hypertensive episode which again seems to be driven by acute anxiety, would consider treating the anxiety disorder. Can use metoprolol intramuscularly if needed for acute hypertension. Although patient is currently refusing taking his medication and focus should be try to make him understand to take his medications. There is no relation should between thoracic aortic aneurysm and QT prolongation. Use of psychoactive medication as needed can be used and I do not see any clear contraindication, his EKG done on admission shows normal QTC interval. Usual precautions for QT prolongation with avoidance of other QT prolonging drugs and maintaining electrolytes especially magnesium and potassium in normal range. Also can check QTC interval after initiating psychoactive medications at a known to prolong QT interval. Will follow up if need be. Plan HPI: pt is a 46 yo male with long hx of anxiety, thoracic aneurysm (dx Nov 2021) who presents for severe anxiety in face of difficulty eating/drinking since this past monday. Pt is accompanied by his mother.? -Pt reports that this past monday he stopped being able to eat or drink since it caused pain (pointing to area just below his xiphoid process) and wretching. -hx of severe anxiety -but no hx of psychosis; no hx lyn Patient's parents review timeline events leading up to this admission: Prior to this summer, patient was overall doing fine, worked, drove his car and for the past 2 years had no obvious problems.? Parents agree that patient is drinking likely kept his anxiety down to some degree -September:? sister got diagnosed with melanoma very upsetting for patient -September:? patient had painless hematuria, cystoscopy did have a finding but it was benign -November:? About 4 years ago patient was diagnosed with thoracic aneurysm however he has not followed up.? This past summer he was going to the emergency room multiple times for various problems and eventually agreed to thoracic CT which showed that aneurysm had increased to 4.3 mg -December:? Patient had a severely ingrown toenail which required surgical extraction -January: Patient diagnosed with macular degeneration is right eye -over these months patient has been eating less and less, saying that he had little appetite, did not like the smell of meat and has lost 20 or more lb -March: on Monday patient had bloody stool; 1st bowel movement in a week On Monday patient suddenly had chest pain and subsequent retching after drinking any fluid or eating anything On 02:30 patient went to [facility] ED, blood labs were drawn but no imaging or or labs; no fluid; long wait prompted patient to return home but he then came to [place] ED where he got IV fluid HOSPITAL COURSE: .03/19 meeting w/ parents; pt anxious, lamenting that nothing can be done for him, just let him go...asking his parents to just leave him somewhere...[employer] asked where the side of the road? and he says yes. He denies any SI and laments i want to drink i want to eat...i just can't...i can't explain it.. but goes on to repeat that nothing can be done for him.? Patient refuses to believe that investment underwriter has seeing other patients who could not eat or drink, saying that this is a unique situation.? [employer] and parents together tried to encourage patient to take an other Ativan under his tongue, which helped yesterday however he refused and kept saying it will not help... there is no point (after patient took Ativan under his tongue he was much more reasonable and able to engage with investment underwriter and agreed that perhaps he could be helped; at that time he agreed to KUB, barium swallow and thoracic CT-each intervention was explained to patient.? Patient got the KUB but was worried about the CT and eventually refused CT).? Patient refused an IV fluids for the same reason saying it is not going to help. Patient has a thoracic aneurysm and has not been taking his metoprolol or amlodipine saying he is unable to swallow.? [employer] discussed with patient who understands the need for these medications for his thoracic aneurysm however He refuses IV metoprolol saying it's not going to help...? Nothing is going to help....? You can not fix me.... -patient reported that he did make urine today, that it was brown and bubbly [employer], Patient and mother and father discussed healthcare proxy and patient was initially ambivalent.? [employer] explained the details of healthcare proxy;? patient asked appropriate questions and expressed he understood and said he trusts his parents and that they are great. Patient signed healthcare proxy designating his mother and than his father as alternate. Discussed case with Hospitalist Dr. Hernandez, Dr. Law (GI) and nutrition professor Dr. Serrano -Barrium swallow on hold to first r/o obstruction (per amrik Law) with KUB -KUB ordered (per Dr. Law): unremarkable -CT chest/angio/aortic ordered with IV contrast to r/o worsening thoracic aneurysm (per dr. Serrano-though considers this unlikely); pt refused -fleet enema ordered: refused 03/20 Patient remains delusional 03/21 Remains delusoinal. He was able to drink some, small amount of fluid; refused IV; again discussed w/ patient consequences of refusal but he maintains that it won't help anyway. 03/22 seems more depressed today and does not respond with anxious lament when approached with questions.? Remains delusional and refuses IV or any kind of medication or treatment.? He seems to agree to continue allowing lab work for monitoring kidney functions. -potassium mildly low today -BUN/creatinine WNL 03/23 patient remains with paranoid delusional thinking regarding his physical health.? He is trying to eat and drink and has been able to keep of food and fluids down.? He continues to refuse medication of any kind, including medications prescribed by nutrition professor to prevent thoracic aneurysm from worsening.? Both patient's parents/healthcare proxy want him to take medications including metoprolol and amlodipine. -lytes: WNL -BUN creatinine: WNL -patient is taking in enough fluid that his kidney function remains intact and at this time patient appears stable without IV fluids -he refuses IV for fluids, refuses thoracic CT, refuses barium swallow, refuses Fleet enema, refuses occult stool test; intermittently refuses labs; refuses all medication including IM and SL); thus far he has allowed labwork to monitor for kidney function.? Patient's anxiety is chronic but has reached a psychotic level and patient does not have the capacity to make medical decisions for himself. Patient has a detailed history of seeking treatment for his ailments. However, now he is disorganized; he says he wants to eat and drink, does not want to ...wants to live, does not want to damage his kidneys... however he refuses nearly all?treatments/interventions. -investment underwriter has discussed case w/ hospitalist and PA 03/24 Patient remains delusional and despondent.? He says he is not good and continues to say I do not know what I am going to do I am just lost. [employer] discussed reasons to try medications to which patient says it makes sense however he follows up with I just do not know......i'm in bad shape... the only thing I know is that there are no solutions..? I am certain about... [employer] later met with patient again while his parents were visiting; patient's parents are urged him to try medications that investment underwriter is offering however patient isaiah ntly refuses.? He tried to help investment underwriter and family understand by saying I do not want to , I just know there is not a chance.? It is the only thing left that I do know. ? Family discussion about healthcare proxy and involuntary commitment which patient understands. -Lytes: WNL -BUN/creatinine: WNL -Patient making urine -Patient drank about 2 cups of water by miday and drank and orange juice box; also ate a fruit cup and a tangerine -given labs and fluid intake, patient appears stable without IV fluids 03/25/2022 Patient remains anxious despondent to me a appears to be psychotically depressed somatically delusional and on able to take in information or explain his self cyst drug active and potentially life-threatening behavior if he markedly limits food and fluids based on no rational explanation.? Refusing medical workup.? Patient has upcoming court hearing for retention and treatment plan.? Try to develop therapeutic [place] encourage labs every other day monitor food and fluid intake may intermittently need IV fluids If patient remains acute may benefit from ECT treatment which would have a more acute impact potentially 03/29/22 pt Involuntarily committed with substituted judgment for medication.? [employer] discussed this with patient who said nothing is going to help 03/30 patient starting on Zyprexa; unable to believe he can take it p.o. or SL so given IM.? Patient very anxious, does not think anything will help 03/31 Remains delusional; Only Drinking when prompted to do so. Patient agrees there is no chest pain when eating or drinking and that doing so does not make him retch/vomit.? However he continues to assert that he can not drink even when he does so in front of investment underwriter.? Creatinine bumped up today.? Still within normal limits; Will check daily 04/01 remains delusional; no insight poor judgment; clearly mentally tortured by paranoid delusion. Needs constant prompting to drink; passively allows oral care. Case discussed with Dr. Pérez who agrees with current treatment plan -tachycardic; kidney function still within normal limits; mildly hypernatremic, likely from dehydration; will order CPK for tomorrow although no BRETT 04/02/22 remains with delusional sx. accepted PO meds today. Team is strongly encouraging food and fluids. Responds to consistent encouragement. Met with pt and mother, then parents after their visit. 04/03/22: Continue current plan. 04/04/22: Daily labs and monitoring. Consider possibly decreasing Lorazepam as it may be activating depressive sx. 04/05/22: Patient remains delusional, depressed and anxious; however he is eating and drinking adequately without prompting and lab work remains within normal limits. Patient is also little more communicative. Will start Prozac for anxiety/depression and OCD like symptoms; Prozac is also often used in combination with Zyprexa for treatment of depression. 04/06 continued somatic delusional worries; however continues to eat and drink adequately. Will give medications another day or so and then consider increasing doses 04/08 no change; continues to eat and drink adequately. Kidney function and lytes within normal limits however mildly increased ALT, possibly due to Prozac. Will increase, however will monitor. Choosing to increase Prozac since patient's illness is primarily anxiety though he also has a psychotic depression. Prozac has less side effect risks in general. That said may also eventually increase Zyprexa 04/09 remains psychotically depressed, with pronounced negative symptoms. Will likely increase Zyprexa 04/10 continue current regimen; eating and drinking, however not attending to any other ADLs. 04/11 seems that patient has plateaued; he is eating and drinking and taking medication and with prompting willing to walk the halls but otherwise remains depressed, disheveled, not attending to ADLs including brushing his teeth, bathing changing clothing or getting out of bed unless prompted. Remains with delusional belief that something is irrevocably wrong with his body and that he can't explain it... Not responsive to reality testing. He is overall a little less anxious which is helpful. Will likely increase Zyprexa for continued psychotic depression. Patient had asked what he needs to do for discharge response given his start doing some of the things he would normally do such is bathe, brushes teeth, changes clothes, talk with others... to Which patient responded I do not think I can do that -at this time there is no less secure place for patient to receive treatment. He is eating and drinking but only because food and drink are brought to him; he walks the ahn 2 to 3 times a day but only because he is repeatedly prompted by staff andknows that he will end up getting Lovenox injections daily if he does not; he takes his medications however only because there court ordered. Without around the clock, trained, supportive staff and court-ordered medication, patient would rapidly decompensate. Case discussed with Dr. Pérez and team; will continue with medication titration however ECT is discussed and remains an option. 04/13 no change in presentation; complained of mild chest pain which started last night resolved and then resumed today. Discussed with hospitalist and patient had workup with unremarkable EKG and negative troponins. Will increase Prozac to 30 mg. 04/14 no chest pain no N/V; remains despondent with psychotic depression; broached the topic of ECT is potential treatment to which patient said it will not help; investment underwriter reviewed note by hospitalist TRESSA regarding yesterday's chest pain and investment underwriter agrees with conclusion and proposed treatment. [employer] asked patient what he thinks about all day as he lies in bed for most of it, hardly talking or interacting w/ anyone. Pt says nothing really and that his mind is mostly blank about during the day as he spends all of it lying in bed by himself not really talking to anyone, which makes OCD less likely 04/15 remains depressed; no insight; will increase Zyprexa to 20 and Prozac to [address] Pérez who agrees with this plan and is also starting to wonder if ECT might be necessary. It is possible try other antipsychotic however patient has had psychotic depression for nearly a month and a longer it persists the harder it can be to treat 04/16 continue current treatment plan; will change vitals back to Q b.i.d. Discussed case with nursing; met with patient; discussed case with pt's parents/HCP; reviewed vitals and WNL so will change back to BID; reviewed labs and will recheck CMP (K was mildly low); 04/17 some a mild improvement seen in patients effort as he is walking the halls without prompting, getting out of his room to get meal men use and agrees to try and sit in the milieu and watch TV. 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 Symptoms likley formally subdued with alcohol abuse Patient has hx of anxiety started in childhood.? However has functioned in the community with almost no history of psychiatric meds/therapy. No hx of any psy chosis or lyn.? 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 Starting this summer patient has undergone a series of stressful events (sisters cancer dx; patients own illness) triggering excessive worry and he's been going to the ED for psychosomatic complaints (along with organic ones); he has become unable to function, along worse, does not drive, not attending to ADLs. His parents agree that given patient's baseline anxiety, all these events combined into overwhelming anxiety and and tipped scales for him decompensate leading to this admission.? Patient is not manic; though he has paranoid, somatic delusions, he has no known history of psychotic illness. Pt's MACIEL/Somatic delusional worries (and possibly OCD) about his organic medical illness have become delusional making it difficult to ascertain what is going on and whether there is an organic component to his complaint that he cannot keep down food or water. Patient has no insight that he has delusional thoughts (he had 1 fleeting moment of insight after Ativan lowered anxiety). Although he can understand possible concerns/consequences of refusing treatment (such risks of worsening kidney function,which he does not want and so he eventually consents to getting blood draws to monitor) his paranoid delusional thinking makes him think all treatments are useless, won't help him and that his situation is hopeless. He is unaware the role his anxiety plays in confounding his thinking, insisting nothing will help, even when some of his complaints could be resolved with something as simple as an enema. UPDATE 04/14/22 Patient has been eating and drinking adequately without need for prompting. Started out as severe anxiety that had become psychotic and produced somatic delusional disorder; anxiety seems to have subsided and patient is more psychotically depressed with delusional somatic beliefs and negative symptoms anhedonia, anergia, avolition. Not attending to ADLs, lies in bed despondent all day; only walks the halls when prompted. Less likely OCD and pt does not c/o intrusive thoughts. UPDATE 04/17/22 still with somatic delusions however patient may be improving some and is putting in more effort towards behavioral activation. PLAN: Section 8b, involuntarily Civilly committed on 03/29.? q15min checks.? Signed HCP on 03/19/22 -COURT AFFIRMED HCP (04/08/2022): HCP's notified: Healthcare proxy invoked and now affirmed by the court. Healthcare proxies are 1st, patient's mother Le and then 2nd his father Chris. Hansen.?Depression/paranoid delusion/somatic disorder/anxiety?(hx severe anxiety since childhood; coped w/ Etoh abuse; sober 1 yr) -Patient is severely anxious with delusions that someting is very wrong with him that cannot be understood or treated; he has a history of seeking treatment for medical illness and if thinking clearly, would do so now. -He does not want to or harm his body, however he is convinced it Is hopeless.? -increase to Zyprexa/Zydis 20mg q.h.s. for now to make sure not causing daytime sedation:? COURT ORDERED; IF REFUSES GIVE IM ZYPREXA (discussed risks/benefits of this medication and antipsychotics to HCP's) -continue Ativan 1 mg BID; patient is noticeably more interactive after Ativan -increased to Prozac 40 mg daily for anxiety/depression and OCD like symptoms -patient agrees to walk the halls 3 times a day -ECT considered vs change to abilify, other med options B. Patient now eating and drinking adequately?(Minimal PO intake fluid/food: RESOLVED:?psychogenic origin) -now eating and drinking daily, even without prompting -making urine daily; Bun/Cr and Lytes remain WNL? -Ordered oral hygiene care t.i.d. with chlorhexidine mouthwash -if patient reverts back to refusal to drink, continue to evaluate kidney function. May need to consider IV fluids, to avert risk of severe and/or permanent kidney damage. -currently Patient is still making urine and labs reveal kidney function remains WNL -Will continue to assess dehydration however?without fluids patient will at some point risks severe and even permanent kidney damage. -investment underwriter has discussed case with both Psychiatric Director Dr. Pérez and several hospitalists (listed throughout) -will continue to monitor labs as pt allows C.?Thoracic aneurysm: Patient now taking metoprolol and amlodipine daily consulted with Medical Physiologist Dr. Pennington and appreciate recommendations above -initially Pt refuses to allow CT to Assess thoracic aneurysm (last assessed Nov 2021 at 4.3cm; however while he initially c/o of ?sudden onset of substernal upper abdominal pain on eating/drinking, this complaint has resolved making this no longer a concern) Patient educated on: therapeutic strategies Informed Consent: understands and further education needed Reason for contiued inpatient stay Substantial Risk for: inability to function Time Spent With Patient Time: Total time managing care of this patient today ____ minutes.
[2022-04-17 20:31] VITALS: BP 110/67; PULSE 71; RESP 16; TEMP 36.1; O2SAT 98
[2022-04-17] MEDS: OLANZapine ODT 10 MG TAB.RAPDIS 20 MG TRANSLINGU (20:46)
[2022-04-18] MEDS: Omeprazole 20 MG CAPSULE.DR PO ×2 (06:21→16:35)
[2022-04-18 07:55] VITALS: BP 112/62; PULSE 62; RESP 16; TEMP 36.7; O2SAT 98
[2022-04-18] MEDS: amLODIPine Besylate 5 MG TABLET PO (08:52)
[2022-04-18] MEDS: LORazepam 1 MG TABLET PO ×2 (08:53→16:35)
[2022-04-18] MEDS: Metoprolol Succinate ER 25 MG TAB.ER.24H PO (08:53)
[2022-04-18] MEDS: FLUoxetine HCl 20 MG CAPSULE 40 MG PO (08:53)
[2022-04-18 08:58] LABS: Alanine Aminotransferase 117 U/L (0-40); Albumin Level 3.1 g/dL (3.5-5.0); Alkaline Phosphatase 68 U/L (39-117); Anion Gap 13 (12-20); Aspartate Amino Transferase 54 U/L (5-37); Bilirubin Total 0.5 mg/dL (0.0-1.0); Blood Urea Nitrogen 10 mg/dL (9-16); Calcium 8.7 mg/dL (8.4-10.2); Carbon Dioxide 24 mmol/L (22-29); Chloride 109 mmol/L (96-108); Creatinine Clr Calc Pharmacy 135.6; Estimated Glomerular Filt Rate > 60; Glucose Random 76 mg/dL (60-115); Potassium 3.5 mmol/L (3.3-5.1); Sodium 142 mmol/L (135-145); Total Protein 5.2 g/dL (6.5-8.0)
--- NOTE | 2022-04-18 10:19 | P.PNPSI_ITS ---
Subjective Subjective Date of Service: 04/18/22 Reason For Visit: psychosis, delusions of persecution, SI Interim History: pt reports he sat in the kitchen last night for about 5-10 minutes. He reports he does not feel any better; no less concerned about his physical health. Pt does not think he still needs ativan and fiction and nonfiction prose writer agrees. Mental Status Exam Mental Status Exam Narrative: Pt is alert and oriented; behavior is depressed, sitting on bed; little easier with which to engage; in casual attire, scruffy facial hair but adequate hygiene; mood is described as i'm trying affect depressed but more expressive, less blunted; adequate eye contact; Speech is normal rate, volume and prosody and not pressured; psychomotor retardation present but improving; thought process is goal directed; Thought content is on trying to push himself; remains with somatic delusional worries; denies any SI/HI. There is no evidence of perceptual disturbance. Patients insight and judgment are impaired but improving. Diagnostics Vital Signs (24Hr): Vital Signs - 24 hr 04/17/22 20:31 04/18/22 07:55 Temperature 97 F 98.1 F Pulse Rate 71 62 Respiratory Rate 16 16 Blood Pressure 110/67 112/62 Pulse Oximetry 98 98 Oxygen Delivery Method Room Air Room Air BMI result Body Mass Index 48.2 Labs 03/17/22 14:30 04/18/22 08:00 Labs: Laboratory Results - last 48 hr 04/18/22 08:00 Sodium 142 Potassium 3.5 Chloride 109 H Carbon Dioxide 24 Anion Gap 13 BUN 10 Creatinine 0.74 Estim Creat Clear Calc 135.6 Estimated GFR > 60 Random Glucose 76 Calcium 8.7 D Total Bilirubin 0.5 AST 54 H ALT 117 H Alkaline Phosphatase 68 Total Protein 5.2 L Albumin 3.1 L Imaging Radiology Impressions: ITS Impressions KUB X-Ray 03/18/22 16:35 IMPRESSION: Unremarkable examination. Medications Medications Current Medications Acetaminophen (Acetaminophen 325 Mg Tablet) 650 mg PO Q6H PRN PRN Reason: Headache/Pain Mild Scale (1-3) Al Hydroxide/Mg Hydroxide (Magnesium Hydrox/Alum Hydrox 30 Ml Oral.Susp) 30 ml PO Q6H PRN PRN Reason: Heartburn/Nausea Last Admin: 04/13/22 13:17 Dose: 30 ml Amlodipine Besylate (Amlodipine Besylate 5 Mg Tablet) 5 mg PO DAILY [place]; Protocol Last Admin: 04/18/22 08:52 Dose: 5 mg Fluoxetine HCl (Fluoxetine Hcl 20 Mg Capsule) 40 mg PO DAILY [facility] Last Admin: 04/18/22 08:53 Dose: 40 mg Lorazepam (Lorazepam 2 Mg/Ml Vial) 1 mg IM BID PRN PRN Reason: If refuses PO Lorazepam (Lorazepam 1 Mg Tablet) 1 mg PO BID@0900,1600 [facility] Last Admin: 04/18/22 08:53 Dose: 1 mg Magnesium Hydroxide (Milk Of Magnesia 30 Ml Oral.Susp) 30 ml PO DAILY PRN PRN Reason: Constipation Metoprolol Succinate (Metoprolol Succinate Er 25 Mg Tab.Er.24h) 25 mg PO DAILY [facility]; Protocol Last Admin: 04/18/22 08:53 Dose: 25 mg Olanzapine (Olanzapine 10 Mg Vial) 10 mg IM DAILY PRN PRN Reason: if refuses PO Last Admin: 04/01/22 11:32 Dose: 10 mg Olanzapine (Olanzapine Odt 10 Mg Tab.Rapdis) 20 mg TRANSLINGU BEDTIME [facility] Last Admin: 04/17/22 20:46 Dose: 20 mg Omeprazole (Omeprazole 20 Mg Capsule.Dr) 20 mg PO BID@0630,1630 [facility] Last Admin: 04/18/22 06:21 Dose: 20 mg Polyethylene Glycol (Polyethylene Glycol 3350 17 Gm Powd.Pack) 17 gm PO DAILY PRN PRN Reason: constipation Sodium Biphosphate/Sodium Phosphate (Sodium Phosphate,[place]-Dibasic 133 Ml Enema) 133 ml OK ONCE PRN PRN Reason: Constipation Trazodone HCl (Trazodone Hcl 50 Mg Tablet) 50 mg PO BEDTIME PRN PRN Reason: Insomnia Allergies Allergies Allergy/AdvReac Type Severity Reaction Status Date / Time No Known Allergies Allergy Verified 03/17/22 16:59 Assessment & Plan Assessment & Plan (1) Somatic delusion disorder: Status: Acute Code(s): F22 - Delusional disorders (2) MDD (major depressive disorder), severe: Status: Acute Code(s): F32.2 - Major depressive disorder, single episode, severe without psychotic features (3) MACIEL (generalized anxiety disorder): Status: Acute Code(s): F41.1 - Generalized anxiety disorder (4) Thoracic aortic aneurysm: Status: Acute Code(s): I71.20 - Thoracic aortic aneurysm, without rupture, unspecified Assessment and Plan: Known chronic thoracic aortic aneurysm without any acute symptoms. This is a chronic condition and there is no acute due to this lesion. It needs to be treated in the long run with medications such as metoprolol and other antihypertensive is a blood pressure remains elevated on metoprolol therapy to reduce she was stressed on the aorta. However is not having any acute symptoms at this point in time. Risk of rupture is very low in mild thoracic aortic aneurysm. His refusal of taking medication appears to be due to lack of understanding as well as his psychiatric condition that prevents him from processing the information. I would concentrate on treating his psychiatric condition so as to then eventually able to understand the need for taking medications. In the long run he will need to be followed as an outpatient by her linotypist that he was following before. If he has intermittent hypertensive episode which again seems to be driven by acute anxiety, would consider treating the anxiety disorder. Can use metoprolol intramuscularly if needed for acute hypertension. Although patient is currently refusing taking his medication and focus should be try to make him understand to take his medications. There is no relation should between thoracic aortic aneurysm and QT prolongation. Use of psychoactive medication as needed can be used and I do not see any clear contraindication, his EKG done on admission shows normal QTC interval. Usual precautions for QT prolongation with avoidance of other QT prolonging drugs and maintaining electrolytes especially magnesium and potassium in normal range. Also can check QTC interval after initiating psychoactive medications at a known to prolong QT interval. Will follow up if need be. Plan HPI: pt is a 46 yo male with long hx of anxiety, thoracic aneurysm (dx Nov 2021) who presents for severe anxiety in face of difficulty eating/drinking since this past monday. Pt is accompanied by his mother.? -Pt reports that this past monday he stopped being able to eat or drink since it caused pain (pointing to area just below his xiphoid process) and wretching. -hx of severe anxiety -but no hx of psychosis; no hx lyn Patient's parents review timeline events leading up to this admission: Prior to this summer, patient was overall doing fine, worked, drove his car and for the past 2 years had no obvious problems.? Parents agree that patient is drinking likely kept his anxiety down to some degree -September:? sister got diagnosed with melanoma very upsetting for patient -September:? patient had painless hematuria, cystoscopy did have a finding but it was benign -November:? About 4 years ago patient was diagnosed with thoracic aneurysm however he has not followed up.? This past summer he was going to the emergency room multiple times for various problems and eventually agreed to thoracic CT which showed that aneurysm had increased to 4.3 mg -December:? Patient had a severely ingrown toenail which required surgical extraction -January: Patient diagnosed with macular degeneration is right eye -over these months patient has been eating less and less, saying that he had little appetite, did not like the smell of meat and has lost 20 or more lb -March: on Monday patient had bloody stool; 1st bowel movement in a week On Monday patient suddenly had chest pain and subsequent retching after drinking any fluid or eating anything On 02:30 patient went to [facility] ED, blood labs were drawn but no imaging or or labs; no fluid; long wait prompted patient to return home but he then came to [place] ED where he got IV fluid HOSPITAL COURSE: .03/19 meeting w/ parents; pt anxious, lamenting that nothing can be done for him, just let him go...asking his parents to just leave him somewhere...Liquor Bridge Operator Helper asked where the side of the road? and he says yes. He denies any SI and laments i want to drink i want to eat...i just can't...i can't explain it.. but goes on to repeat that nothing can be done for him.? Patient refuses to believe that fiction and nonfiction prose writer has seeing other patients who could not eat or drink, saying that this is a unique situation.? Liquor Bridge Operator Helper and parents together tried to encourage patient to take another Ativan under his tongue, which helped yesterday however he refused and kept saying it will not help... there is no point (after patient took Ativan under his tongue he was much more reasonable and able to engage with fiction and nonfiction prose writer and agreed that perhaps he could be helped; at that time he agreed to KUB, barium swallow and thoracic CT-each intervention was explained to patient.? Patient got the KUB but was worried about the CT and eventually refused CT).? Patient refused an IV fluids for the same reason saying it is not going to help. Patient has a thoracic aneurysm and has not been taking his metoprolol or amlodipine saying he is unable to swallow.? Liquor Bridge Operator Helper discussed with patient who understands the need for these medications for his thoracic aneurysm however He refuses IV metoprolol saying it's not going to help...? Nothing is going to help....? You can not fix me.... -patient reported that he did make urine today, that it was brown and bubbly Liquor Bridge Operator Helper, Patient and mother and father discussed healthcare proxy and patient was initially ambivalent.? Liquor Bridge Operator Helper explained the details of healthcare proxy;? patient asked appropriate questions and expressed he understood and said he trusts his parents and that they are great. Patient signed healthcare proxy designating his mother and than his father as alternate. Discussed case with Hospitalist Dr. Hernandez, Dr. Law (GI) and linotypist Dr. Serrano -Barrium swallow on hold to first r/o obstruction (per amrik Law) with KUB -KUB ordered (per Dr. Law): unremarkable -CT chest/angio/aortic ordered with IV contrast to r/o worsening thoracic aneurysm (per dr. Serrano-though considers this unlikely); pt refused -fleet enema ordered: refused 03/20 Patient remains delusional 03/21 Remains delusoinal. He was able to drink some, small amount of fluid; refused IV; again discussed w/ patient consequences of refusal but he maintains that it won't help anyway. 03/22 seems more depressed today and does not respond with anxious lament when approached with questions.? Remains delusional and refuses IV or any kind of medication or treatment.? He seems to agree to continue allowing lab work for monitoring kidney functions. -potassium mildly low today -BUN/creatinine WNL 03/23 patient remains with paranoid delusional thinking regarding his physical health.? He is trying to eat and drink and has been able to keep of food and fluids down.? He continues to refuse medication of any kind, including medications prescribed by linotypist to prevent thoracic aneurysm from worsening.? Both patient's parents/healthcare proxy want him to take medications including metoprolol and amlodipine. -lytes: WNL -BUN creatinine: WNL -patient is taking in enough fluid that his kidney function remains intact and at this time patient appears stable without IV fluids -he refuses IV for fluids, refuses thoracic CT, refuses barium swallow, refuses Fleet enema, refuses occult stool test; intermittently refuses labs; refuses all medication including IM and SL); thus far he has allowed labwork to monitor for kidney function.? Patient's anxiety is chronic but has reached a psychotic level and patient does not have the capacity to make medical decisions for himself. Patient has a detailed history of seeking treatment for his ailments. However, now he is disorganized; he says he wants to eat and drink, does not want to ...wants to live, does not want to damage his kidneys... however he refuses nearly all?treatments/interventions. -fiction and nonfiction prose writer has discussed case w/ hospitalbill and TRESSA 03/24 Patient remains delusional and despondent.? He says he is not good and continues to say I do not know what I am going to do I am just lost. Liquor Bridge Operator Helper discussed reasons to try medications to which patient says it makes sense however he follows up with I just do not know......i'm in bad shape... the only thing I know is that there are no solutions..? I am certain about... Liquor Bridge Operator Helper later met with patient again while his parents were visiting; patient's parents are urged him to try medications that fiction and nonfiction prose writer is offering however patient adamantly refuses.? He tried to help fiction and nonfiction prose writer and family understand by saying I do not want to , I just know there is not a chance.? It is the only thing left that I do know. ? Family discussion about healthcare proxy and involuntary commitment which patient understands. -Lytes: WNL -BUN/creatinine: WNL -Patient making urine -Patient drank about 2 cups of water by miday and drank and orange juice box; also ate a fruit cup and a tangerine -given labs and fluid intake, patient appears stable without IV fluids 03/25/2022 Patient remains anxious despondent to me a appears to be psychotically depressed somatically delusional and on able to take in information or explain his self cyst drug active and potentially life-threatening behavior if he markedly limits food and fluids based on no rational explanation.? Refusing medical workup.? Patient has upcoming court hearing for retention and treatment plan.? Try to develop therapeutic [place] encourage labs every other day monitor food and fluid intake may intermittently need IV fluids If patient remains acute may benefit from ECT treatment which would have a more acute impact potentially 03/29/22 pt Involuntarily committed with substituted judgment for medication.? Liquor Bridge Operator Helper discussed this with patient who said nothing is going to help 03/30 patient starting on Zyprexa; unable to believe he can take it p.o. or SL so given IM.? Patient very anxious, does not think anything will help 03/31 Remains delusional; Only Drinking when prompted to do so. Patient agrees there is no chest pain when eating or drinking and that doing so does not make him retch/vomit.? However he continues to assert that he can not drink even when he does so in front of fiction and nonfiction prose writer.? Creatinine bumped up today.? Still within normal limits; Will check daily 04/01 remains delusional; no insight poor judgment; clearly mentally tortured by paranoid delusion. Needs constant prompting to drink; passively allows oral care. Case discussed with Dr. Pérez who agrees with current treatment plan -tachycardic; kidney function still within normal limits; mildly hypernatremic, likely from dehydration; will order CPK for tomorrow although no BRETT 04/02/22 remains with delusional sx. accepted PO meds today. Team is strongly encouraging food and fluids. Responds to consistent encouragement. Met with pt and mother, then parents after their visit. 04/03/22: Continue current plan. 04/04/22: Daily labs and monitoring. Consider possibly decreasing Lorazepam as it may be activating depressive sx. 04/05/22: Patient remains delusional, depressed and anxious; however he is eating and drinking adequately without prompting and lab work remains within normal limits. Patient is also little more communicative. Will start Prozac for anxiety/depression and OCD like symptoms; Prozac is also often used in combination with Zyprexa for treatment of depression. 04/06 continued somatic delusional worries; however continues to eat and drink adequately. Will give medications another day or so and then consider increasing doses 04/08 no change; continues to eat and drink adequately. Kidney function and lytes within normal limits however mildly increased ALT, possibly due to Prozac. Will increase, however will monitor. Choosing to increase Prozac since patient's illness is primarily anxiety though he also has a psychotic depression. Prozac has less side effect risks in general. That said may also eventually increase Zyprexa 04/09 remains psychotically depressed, with pronounced negative symptoms. Will likely increase Zyprexa 04/10 continue current regimen; eating and drinking, however not attending to any other ADLs. 04/11 seems that patient has plateaued; he is eating and drinking and taking medication and with prompting willing to walk the halls but otherwise remains depressed, disheveled, not attending to ADLs including brushing his teeth, bathing changing clothing or getting out of bed unless prompted. Remains with delusional belief that something is irrevocably wrong with his body and that he can't explain it... Not responsive to reality testing. He is overall a little less anxious which is helpful. Will likely increase Zyprexa for continued psychotic depression. Patient had asked what he needs to do for discharge response given his start doing some of the things he would normally do such is bathe, brushes teeth, changes clothes, talk with others... to Which patient responded I do not think I can do that -at this time there is no less secure place for patient to receive treatment. He is eating and drinking but only because food and drink are brought to him; he walks the ahn 2 to 3 times a day but only because he is repeatedly prompted by staff andknows that he will end up getting Lovenox injections daily if he does not; he takes his medications however only because there court ordered. Without around the clock, trained, supportive staff and court-ordered medication, patient would rapidly decompensate. Case discussed with Dr. Pérez and team; will continue with medication titration however ECT is discussed and remains an option. 04/13 no change in presentation; complained of mild chest pain which started last night resolved and then resumed today. Discussed with hospitalist and patient had workup with unremarkable EKG and negative troponins. Will increase Prozac to 30 mg. 04/14 no chest pain no N/V; remains despondent with psychotic depression; broached the topic of ECT is potential treatment to which patient said it will not help; fiction and nonfiction prose writer reviewed note by hospitalist TRESSA regarding yesterday's chest pain and fiction and nonfiction prose writer agrees with conclusion and proposed treatment. Liquor Bridge Operator Helper asked patient what he thinks about all day as he lies in bed for most of it, hardly talking or interacting w/ anyone. Pt says nothing really and that his mind is mostly blank about during the day as he spends all of it lying in bed by himself not really talking to anyone, which makes OCD less likely 04/15 remains depressed; no insight; will increase Zyprexa to 20 and Prozac to [address] Pérez who agrees with this plan and is also starting to wonder if ECT might be necessary. It is possible try other antipsychotic however patient has had psychotic depression for nearly a month and a longer it persists the harder it can be to treat 04/16 continue current treatment plan; will change vitals back to Q b.i.d. Discussed case with nursing; met with patient; discussed case with pt's parents/HCP; reviewed vitals and WNL so will change back to BID; reviewed labs and will recheck CMP (K was mildly low); 04/17 some a mild improvement seen in patients effort as he is walking the halls without prompting, getting out of his room to get meal men use and agrees to try and sit in the milieu and watch TV. 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 Symptoms likley formally subdued with alcohol abuse Patient has hx of anxiety started in childhood.? However has functioned in the community with almost no history of psychiatric meds/therapy. No hx of any psychosis or lyn.? 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 Starting this summer patient has undergone a series of stressful events (sisters cancer dx; patients own illness) triggering excessive worry and he's been going to the ED for psychosomatic complaints (along with organic ones); he has become unable to function, along worse, does not drive, not attending to ADLs. His parents agree that given patient's baseline anxiety, all these events combined into overwhelming anxiety and and tipped scales for him decompensate leading to this admission.? Patient is not manic; though he has paranoid, somatic delusions, he has no known history of psychotic illness. Pt's MACIEL/Somatic delusional worries (and possibly OCD) about his organic medical illness have become delusional making it difficult to ascertain what is going on and whether there is an organic component to his complaint that he cannot keep down food or water. Patient has no insight that he has delusional thoughts (he had 1 fleeting moment of insight after Ativan lowered anxiety). Although he can understand possible concerns/consequences of refusing treatment (such risks of worsening kidney function,which he does not want and so he eventually consents to getting blood draws to monitor) his paranoid delusional thinking makes him think all treatments are useless, won't help him and that his situation is hopeless. He is unaware the role his anxiety plays in confounding his thinking, insisting nothing will help, even when some of his complaints could be resolved with something as simple as an enema. UPDATE 04/14/22 Patient has been eating and drinking adequately without need for prompting. Started out as severe anxiety that had become psychotic and produced somatic delusional disorder; anxiety seems to have subsided and patient is more psychotically depressed with delusional somatic beliefs and negative symptoms anhedonia, anergia, avolition. Not attending to ADLs, lies in bed despondent all day; only walks the halls when prompted. Less likely OCD and pt does not c/o intrusive thoughts. UPDATE 04/17/22 still with somatic delusions however patient may be improving some and is putting in more effort towards behavioral activation. PLAN: Section 8b, involuntarily Civilly committed on 03/29.? q15min checks.? Signed HCP on 03/19/22 -COURT AFFIRMED HCP (04/08/2022): HCP's notified: Healthcare proxy invoked and now affirmed by the court. Healthcare proxies are 1st, patient's mother Le hicks then 2nd his father Chris. Hansen.?Depression/paranoid delusion/somatic disorder/anxiety?(hx severe anxiety since childhood; coped w/ Etoh abuse; sober 1 yr) -Patient is severely anxious with delusions that someting is very wrong with him that cannot be understood or treated; he has a history of seeking treatment for medical illness and if thinking clearly, would do so now. -He does not want to or harm his body, however he is convinced it Is hopeless.? -continue Zyprexa/Zydis 20mg q.h.s. for now to make sure not causing daytime sedation:?COURT ORDERED; IF REFUSES GIVE IM zyprexa (discussed risks/benefits of this medication and antipsychotics to HCP's) -DC Ativan 1 mg pt rather not and fiction and nonfiction prose writer agrees to dc -Continue Prozac 40 mg daily for anxiety/depression and OCD like symptoms -patient agrees to walk the halls 3 times a day -ECT considered vs change to abilify, other med options B. Patient now eating and drinking adequately?(Minimal PO intake fluid/food: RESOLVED:?psychogenic origin) -now eating and drinking daily, even without prompting -making urine daily; Bun/Cr and Lytes remain WNL? -Ordered oral hygiene care t.i.d. with chlorhexidine mouthwash -if patient reverts back to refusal to drink, continue to evaluate kidney function. May need to consider IV fluids, to avert risk of severe and/or permanent kidney damage. -currently Patient is still making urine and labs reveal kidney function remains WNL -Will continue to assess dehydration however?without fluids patient will at some point risks severe and even permanent kidney damage. 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 Pérez and several hospitalists (listed throughout) -will continue to monitor labs as pt allows C.?Thoracic aneurysm: Patient now taking metoprolol and amlodipine daily consulted with Parts Was[employer] Dr. Pennington and appreciate recommendations above -initially Pt refuses to allow CT to Assess thoracic aneurysm (last assessed Nov 2021 at 4.3cm; however while he initially c/o of ?sudden onset of substernal upper abdominal pain on eating/drinking, this complaint has resolved making this no longer a concern) Patient educated on: diagnosis, medication risk/benefits and therapeutic strategies Informed Consent: understands, does not understand and further education needed Reason for contiued inpatient stay Substantial Risk for: inability to function and rapid decompensation Time Spent With Patient Time: Total time managing care of this patient today ____ minutes.
[2022-04-18 21:16] VITALS: BP 98/63; PULSE 76; RESP 14; TEMP 36.5
[2022-04-18] MEDS: OLANZapine ODT 10 MG TAB.RAPDIS 20 MG TRANSLINGU (21:17)
[2022-04-19] MEDS: Omeprazole 20 MG CAPSULE.DR PO ×2 (07:06→15:40)
[2022-04-19 08:34] VITALS: BP 101/61; PULSE 67; RESP 16; TEMP 36.9; O2SAT 98
[2022-04-19] MEDS: amLODIPine Besylate 5 MG TABLET PO (08:47)
[2022-04-19] MEDS: LORazepam 1 MG TABLET PO ×2 (08:47→15:40)
[2022-04-19] MEDS: Metoprolol Succinate ER 25 MG TAB.ER.24H PO (08:47)
[2022-04-19] MEDS: FLUoxetine HCl 20 MG CAPSULE 40 MG PO (08:47)
[2022-04-19 19:17] VITALS: BP 94/63; PULSE 69; RESP 18; TEMP 36.7; O2SAT 97
[2022-04-19] MEDS: OLANZapine ODT 10 MG TAB.RAPDIS 20 MG TRANSLINGU (20:03)
--- NOTE | 2022-04-19 22:06 | P.PNPSI_ITS ---
Subjective Subjective Date of Service: 04/19/22 Reason For Visit: psychosis, delusions of persecution, SI Interim History: little brighter today; pt talked about sports with junior technical writer and even smiled briefly. Continues to spend more time in [place], though still for only brief periods. He is unsure if his mood is any better, however this is first time he even considers if there has been change. Mental Status Exam Mental Status Exam Narrative: Pt is alert and oriented; behavior is depressed, sitting on bed; little easier with which to engage; in casual attire, scruffy facial hair but adequate hygiene; mood is described as i'm trying affect depressed but more expressive, less blunted; adequate eye contact; Speech is normal rate, volume and prosody and not pressured; psychomotor retardation present but improving; thought process is goal directed; Thought content is on trying to push himself; remains with somatic delusional worries; denies any SI/HI. There is no evidence of perceptual disturbance. Patients insight and judgment are impaired but improving. Diagnostics Vital Signs (24Hr): Vital Signs - 24 hr 04/19/22 08:34 04/19/22 19:17 Temperature 98.5 F 98.0 F Pulse Rate 67 69 Respiratory Rate 16 18 Blood Pressure 101/61 94/63 Pulse Oximetry 98 97 Oxygen Delivery Method Room Air Room Air BMI result Body Mass Index 48.2 Labs 03/17/22 14:30 04/18/22 08:00 Labs: Laboratory Results - last 48 hr 04/18/22 08:00 Sodium 142 Potassium 3.5 Chloride 109 H Carbon Dioxide 24 Anion Gap 13 BUN 10 Creatinine 0.74 Estim Creat Clear Calc 135.6 Estimated GFR > 60 Random Glucose 76 Calcium 8.7 D Total Bilirubin 0.5 AST 54 H ALT 117 H Alkaline Phosphatase 68 Total Protein 5.2 L Albumin 3.1 L Imaging Radiology Impressions: ITS Impressions KUB X-Ray 03/18/22 16:35 IMPRESSION: Unremarkable examination. Medications Medications Current Medications Acetaminophen (Acetaminophen 325 Mg Tablet) 650 mg PO Q6H PRN PRN Reason: Headache/Pain Mild Scale (1-3) Al Hydroxide/Mg Hydroxide (Magnesium Hydrox/Alum Hydrox 30 Ml Oral.Susp) 30 ml PO Q6H PRN PRN Reason: Heartburn/Nausea Last Admin: 04/13/22 13:17 Dose: 30 ml Amlodipine Besylate (Amlodipine Besylate 5 Mg Tablet) 5 mg PO DAILY [facility]; Protocol Last Admin: 04/19/22 08:47 Dose: 5 mg Fluoxetine HCl (Fluoxetine Hcl 20 Mg Capsule) 40 mg PO DAILY [facility] Last Admin: 04/19/22 08:47 Dose: 40 mg Lorazepam (Lorazepam 2 Mg/Ml Vial) 1 mg IM BID PRN PRN Reason: If refuses PO Lorazepam (Lorazepam 1 Mg Tablet) 1 mg PO BID@0900,1600 [facility] Last Admin: 04/19/22 15:40 Dose: 1 mg Magnesium Hydroxide (Milk Of Magnesia 30 Ml Oral.Susp) 30 ml PO DAILY PRN PRN Reason: Constipation Metoprolol Succinate (Metoprolol Succinate Er 25 Mg Tab.Er.24h) 25 mg PO DAILY [facility]; Protocol Last Admin: 04/19/22 08:47 Dose: 25 mg Olanzapine (Olanzapine 10 Mg Vial) 10 mg IM DAILY PRN PRN Reason: if refuses PO Last Admin: 04/01/22 11:32 Dose: 10 mg Olanzapine (Olanzapine Odt 10 Mg Tab.Rapdis) 20 mg TRANSLINGU BEDTIME [facility] Last Admin: 04/19/22 20:03 Dose: 20 mg Polyethylene Glycol (Polyethylene Glycol 3350 17 Gm Powd.Pack) 17 gm PO DAILY PRN PRN Reason: constipation Sodium Biphosphate/Sodium Phosphate (Sodium Phosphate,[place]-Dibasic 133 Ml Enema) 133 ml IN ONCE PRN PRN Reason: Constipation Trazodone HCl (Trazodone Hcl 50 Mg Tablet) 50 mg PO BEDTIME PRN PRN Reason: Insomnia Allergies Allergies Allergy/AdvReac Type Severity Reaction Status Date / Time No Known Allergies Allergy Verified 03/17/22 16:59 Assessment & Plan Assessment & Plan (1) Somatic delusion disorder: Status: Acute Code(s): F22 - Delusional disorders (2) MDD (major depressive disorder), severe: Status: Acute Code(s): F32.2 - Major depressive disorder, single episode, severe without psychotic features (3) MACIEL (generalized anxiety disorder): Status: Acute Code(s): F41.1 - Generalized anxiety disorder (4) Thoracic aortic aneurysm: Status: Acute Code(s): I71.20 - Thoracic aortic aneurysm, without rupture, unspecified Assessment and Plan: Known chronic thoracic aortic aneurysm without any acute symptoms. This is a chronic condition and there is no acute due to this lesion. It needs to be treated in the long run with medications such as metoprolol and other antihypertensive is a blood pressure remains elevated on metoprolol therapy to reduce she was stressed on the aorta. However is not having any acute symptoms at this point in time. Risk of rupture is very low in mild thoracic aortic aneurysm. His refusal of taking medication appears to be due to lack of under standing as well as his psychiatric condition that prevents him from processing the information. I would concentrate on treating his psychiatric condition so as to then eventually able to understand the need for taking medications. In the long run he will need to be followed as an outpatient by her metal gauge maker that he was following before. If he has intermittent hypertensive episode which again seems to be driven by acute anxiety, would consider treating the anxiety disorder. Can use metoprolol intramuscularly if needed for acute hypertension. Although patient is currently refusing taking his medication and focus should be try to make him understand to take his medications. There is no relation should between thoracic aortic aneurysm and QT prolongation. Use of psychoactive medication as needed can be used and I do not see any clear contraindication, his EKG done on admission shows normal QTC interval. Usual precautions for QT prolongation with avoidance of other QT prolonging drugs and maintaining electrolytes especially magnesium and potassium in normal range. Also can check QTC interval after initiating psychoactive medications at a known to prolong QT interval. Will follow up if need be. Plan HPI: pt is a 46 yo male with long hx of anxiety, thoracic aneurysm (dx Nov 2021) who presents for severe anxiety in face of difficulty eating/drinking since this past monday. Pt is accompanied by his mother.? -Pt reports that this past monday he stopped being able to eat or drink since it caused pain (pointing to area just below his xiphoid process) and wretching. -hx of severe anxiety -but no hx of psychosis; no hx lyn Patient's parents review timeline events leading up to this admission: Prior to this summer, patient was overall doing fine, worked, drove his car and for the past 2 years had no obvious problems.? Parents agree that patient is drinking likely kept his anxiety down to some degree -September:? sister got diagnosed with melanoma very upsetting for patient -September:? patient had painless hematuria, cystoscopy did have a finding but it was benign -November:? About 4 years ago patient was diagnosed with thoracic aneurysm however he has not followed up.? This past summer he was going to the emergency room multiple times for various problems and eventually agreed to thoracic CT which s howed that aneurysm had increased to 4.3 mg -December:? Patient had a severely ingrown toenail which required surgical extraction -January: Patient diagnosed with macular degeneration is right eye -over these months patient has been eating less and less, saying that he had little appetite, did not like the smell of meat and has lost 20 or more lb -March: on Monday patient had bloody stool; 1st bowel movement in a week On Monday patient suddenly had chest pain and subsequent retching after drinking any fluid or eating anything On 02:30 patient went to [facility] ED, blood labs were drawn but no imaging or or labs; no fluid; long wait prompted patient to return home but he then came to [place] ED where he got IV fluid HOSPITAL COURSE: .03/19 meeting w/ parents; pt anxious, lamenting that nothing can be done for him, just let him go...asking his parents to just leave him somewhere...Supervisor Money Room asked where the side of the road? and he says yes. He denies any SI and laments i want to drink i want to eat...i just can't...i can't explain it.. but goes on to repeat that nothing can be done for him.? Patient refuses to believe that junior technical writer has seeing other patients who could not eat or drink, saying that this is a unique situation.? Supervisor Money Room and parents together tried to encourage patient to take another Ativan under his tongue, which helped yesterday however he refused and kept saying it will not help... there is no point (after patient took Ativan under his tongue he was much more reasonable and able to engage with junior technical writer and agreed that perhaps he could be helped; at that time he agreed to KUB, barium swallow and thoracic CT-each intervention was explained to patient.? Patient got the KUB but was worried about the CT and eventually refused CT).? Patient refused an IV fluids for the same reason saying it is not going to help. Patient has a thoracic aneurysm and has not been taking his metoprolol or amlodipine saying he is unable to swallow.? Supervisor Money Room discussed with patient who understands the need for these medications for his thoracic aneurysm however He refuses IV metoprolol saying it's not going to help...? Nothing is going to help....? You can not fix me.... -patient reported that he did make urine today, that it was brown and bubbly Supervisor Money Room, Patient and mother and father discussed healthcare proxy and patient was initially ambivalent.? Supervisor Money Room explained the details of healthcare proxy;? patient asked appropriate questions and expressed he understood and said he trusts his parents and that they are great. Patient signed healthcare proxy designating his mother and than his father as alternate. Discussed case with Hospitalist Dr. Hernandez, Dr. Law (GI) and metal gauge maker Dr. Serrano -Barrium swallow on hold to first r/o obstruction (per amrik Law) with KUB -KUB ordered (per Dr. Law): unremarkable -CT chest/angio/aortic ordered with IV contrast to r/o worsening thoracic aneurysm (per dr. Serrano-though considers this unlikely); pt refused -fleet enema ordered: refused 03/20 Patient remains delusional 03/21 Remains delusoinal. He was able to drink some, small amount of fluid; refused IV; again discussed w/ patient consequences of refusal but he maintains that it won't help anyway. 03/22 seems more depressed today and does not respond with anxious lament when approached with questions.? Remains delusional and refuses IV or any kind of medication or treatment.? He seems to agree to continue allowing lab work for monitoring kidney functions. -potassium mildly low today -BUN/creatinine WNL 03/23 patient remains with paranoid delusional thinking regarding his physical health.? He is trying to eat and drink and has been able to keep of food and fluids down.? He continues to refuse medication of any kind, including medications prescribed by metal gauge maker to prevent thoracic aneurysm from worsening.? Both patient's parents/healthcare proxy want him to take medications including metoprolol and amlodipine. -lytes: WNL -BUN creatinine: WNL -patient is taking in enough fluid that his kidney function remains intact and at this time patient appears stable without IV fluids -he refuses IV for fluids, refuses thoracic CT, refuses barium swallow, refuses Fleet enema, refuses occult stool test; intermittently refuses labs; refuses all medication including IM and SL); thus far he has allowed labwork to monitor for kidney function.? Patient's anxiety is chronic but has reached a psychotic level and patient does not have the capacity to make medical decisions for himself. Patient has a detailed history of seeking treatment for his ailments. However, now he is disorganized; he says he wants to eat and drink, does not want to ...wants to live, does not want to damage his kidneys... however he refuses nearly all?treatments/interventions. -junior technical writer has discussed case w/ hospitalist and PA 03/24 Patient remains delusional and despondent.? He says he is not good and continues to say I do not know what I am going to do I am just lost. Supervisor Money Room discussed reasons to try medications to which patient says it makes sense however he follows up with I just do not know......i'm in bad shape... the only thing I know is that there are no solutions..? I am certain about... Supervisor Money Room later met with patient again while his parents were visiting; patient's parents are urged him to try medications that junior technical writer is offering however patient adamantly refuses.? He tried to help junior technical writer and family understand by saying I do not want to , I just know there is not a chance.? It is the only thing left that I do know. ? Family discussion about healthcare proxy and involuntary commitment which patient understands. -Lytes: WNL -BUN/creatinine: WNL -Patient making urine -Patient drank about 2 cups of water by miday and drank and orange juice box; also ate a fruit cup and a tangerine -given labs and fluid intake, patient appears stable without IV fluids 03/25/2022 Patient remains anxious despondent to me a appears to be psychotically depressed somatically delusional and on able to take in information or explain his self cyst drug active and potentially life-threatening behavior if he markedly limits food and fluids based on no rational explanation.? Refusing medical workup.? Patient has upcoming court hearing for retention and treatment plan.? Try to develop therapeutic [place] encourage labs every other day monitor food and fluid intake may intermittently need IV fluids If patient remains acute may benefit from ECT treatment which would have a more acute impact potentially 03/29/22 pt Involuntarily committed with substituted judgment for medication.? Supervisor Money Room discussed this with patient who said nothing is going to help 03/30 patient starting on Zyprexa; unable to believe he can take it p.o. or SL so given IM.? Patient very anxious, does not think anything will help 03/31 Remains delusional; Only Drinking when prompted to do so. Patient agrees there is no chest pain when eating or drinking and that doing so does not make him retch/vomit.? However he continues to assert that he can not drink even when he does so in front of junior technical writer.? Creatinine bumped up today.? Still within normal limits; Will check daily 04/01 remains delusional; no insight poor judgment; clearly mentally tortured by paranoid delusion. Needs constant prompting to drink; passively allows oral care. Case discussed with Dr. Pérez who agrees with current treatment plan -tachycardic; kidney function still within normal limits; mildly hypernatremic, likely from dehydration; will order CPK for tomorrow although no BRETT 04/02/22 remains with delusional sx. accepted PO meds today. Team is strongly en couraging food and fluids. Responds to consistent encouragement. Met with pt and mother, then parents after their visit. 04/03/22: Continue current plan. 04/04/22: Daily labs and monitoring. Consider possibly decreasing Lorazepam as it may be activating depressive sx. 04/05/22: Patient remains delusional, depressed and anxious; however he is eating and drinking adequately without prompting and lab work remains within normal limits. Patient is also little more communicative. Will start Prozac for anx iety/depression and OCD like symptoms; Prozac is also often used in combination with Zyprexa for treatment of depression. 04/06 continued somatic delusional worries; however continues to eat and drink a dequately. Will give medications another day or so and then consider increasing doses 04/08 no change; continues to eat and drink adequately. Kidney function and lytes within normal limits however mildly increased ALT, possibly due to Prozac. Will increase, however will monitor. Choosing to increase Prozac since patient's illness is primarily anxiety though he also has a psychotic depression. Prozac has less side effect risks in general. That said may also eventually increase Zyprexa 04/09 remains psychotically depressed, with pronounced negative symptoms. Will likely increase Zyprexa 04/10 continue current regimen; eating and drinking, however not attending to any other ADLs. 04/11 seems that patient has plateaued; he is eating and drinking and taking medication and with prompting willing to walk the halls but otherwise remains depressed, disheveled, not attending to ADLs including brushing his teeth, bathing changing clothing or getting out of bed unless prompted. Remains with delusional belief that something is irrevocably wrong with his body and that he can't explain it... Not responsive to reality testing. He is overall a little less anxious which is helpful. Will likely increase Zyprexa for continued psychotic depression. Patient had asked what he needs to do for discharge response given his start doing some of the things he would normally do such is bathe, brushes teeth, changes clothes, talk with others... to Which patient responded I do not think I can do that -at this time there is no less secure place for patient to receive treatment. He is eating and drinking but only because food and drink are brought to him; he walks the ahn 2 to 3 times a day but only because he is repeatedly prompted by staff andknows that he will end up getting Lovenox injections daily if he does not; he takes his medications however only because there court ordered. Without around the clock, trained, supportive staff and court-ordered medication, patient would rapidly decompensate. Case discussed with Dr. Pérez and team; will continue with medication titration however ECT is discussed and remains an option. 04/13 no change in presentation; complained of mild chest pain which started last night resolved and then resumed today. Discussed with hospitalist and patient had workup with unremarkable EKG and negative troponins. Will increase Prozac to 30 mg. 04/14 no chest pain no N/V; remains despondent with psychotic depression; broached the topic of ECT is potential treatment to which patient said it will not help; junior technical writer reviewed note by hospitalist TRESSA regarding yesterday's chest pain and junior technical writer agrees with conclusion and proposed treatment. Supervisor Money Room asked emily de santiago what he thinks about all day as he lies in bed for most of it, hardly talking or interacting w/ anyone. Pt says nothing really and that his mind is mostly blank about during the day as he spends all of it lying in bed by himself not really talking to anyone, which makes OCD less likely 04/15 remains depressed; no insight; will increase Zyprexa to 20 and Prozac to [address] Pérez who agrees with this plan and is also starting to wonder if ECT might be necessary. It is possible try other antipsychotic however patient has had psychotic depression for nearly a month and a longer it persists the harder it can be to treat 04/16 continue current treatment plan; will change vitals back to Q b.i.d. Discussed case with nursing; met with patient; discussed case with pt's parents/HCP; reviewed vitals and WNL so will change back to BID; reviewed labs and will recheck CMP (K was mildly low); 04/17 some a mild improvement seen in patients effort as he is walking the halls without prompting, getting out of his room to get meal men use and agrees to try and sit in the milieu and watch TV. 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 Symptoms likley formally subdued with alcohol abuse Patient has hx of anxiety started in childhood.? However has functioned in the community with almost no history of psychiatric meds/therapy. No hx of any psychosis or lyn.? For past 2 years, he has worked run in the [employer], drives his car and has functioned successfully.? Starting this summer patient has undergone a series of stressful events (sisters cancer dx; patients own il lness) triggering excessive worry and he's been going to the ED for psychosomatic complaints (along with organic ones); he has become unable to function, along worse, does not drive, not attending to ADLs. His parents agree that given patient's baseline anxiety, all these events combined into overwh elming anxiety and and tipped scales for him decompensate leading to this admission.? Patient is not manic; though he has paranoid, somatic delusions, he has no known history of psychotic illness. Pt's MACIEL/Somatic delusional worries (and possibly OCD) about his organic medical illness have become delusional making it difficult to ascertain what is going on and whether there is an organic component to his complaint that he cannot keep down food or water. Patient has no insight that he has delusional thoughts (he had 1 fleeting moment of insight after Ativan lowered anxiety). Although he can understand possible concerns/consequences of refusing treatment (such risks of worsening kidney function,which he does not want and so he eventually consents to getting blood draws to monitor) his paranoid delusional thinking makes him think all treatments are useless, won't help him and that his situation is hopeless. He is unaware the role his anxiety plays in confounding his thinking, insisting nothing will help, even when some of his complaints could be resolved with something as simple as an enema. UPDATE 04/14/22 Patient has been eating and drinking adequately without need for prompting. Sta rted out as severe anxiety that had become psychotic and produced somatic delusional disorder; anxiety seems to have subsided and patient is more psychotically depressed with delusional somatic beliefs and negative symptoms anhedonia, anergia, avolition. Not attending to ADLs, lies in bed despondent all day; only walks the halls when prompted. Less likely OCD and pt does not c/o intrusive thoughts. UPDATE 04/17/22 still with somatic delusions however patient may be improving some and is putting in more effort towards behavioral activation. PLAN: Section 8b, involuntarily Civilly committed on 03/29.? q15min checks.? Signed HCP on 03/19/22 -COURT AFFIRMED HCP (04/08/2022): HCP's notified: Healthcare proxy invoked and now affirmed by the court. Healthcare proxies are 1st, patient's mother Le and then 2nd his father Chris. Hansen.?Depression/paranoid delusion/somatic disorder/anxiety?(hx severe anxiety since childhood; coped w/ Etoh abuse; sober 1 yr) -Patient is severely anxious with delusions that someting is very wrong with him that cannot be understood or treated; he has a history of seeking treatment for medical illness and if thinking clearly, would do so now. -He does not want to or harm his body, however he is convinced it Is hopeless.? -continue Zyprexa/Zydis 20mg q.h.s. for now to make sure not causing daytime sedation:?COURT ORDERED; IF REFUSES GIVE IM zyprexa (discussed risks/benefits of this medication and antipsychotics to HCP's) -DC Ativan 1 mg pt rather not and junior technical writer agrees to dc -Continue Prozac 40 mg daily for anxiety/depression and OCD like symptoms -patient agrees to walk the halls 3 times a day -ECT considered vs change to abilify, other med options B. Patient now eating and drinking adequately?(Minimal PO intake fluid/food: R ESOLVED:?psychogenic origin) -now eating and drinking daily, even without prompting -making urine daily; Bun/Cr and Lytes remain WNL? -Ordered oral hygiene care t.i.d. with chlorhexidine mouthwash -if patient reverts back to refusal to drink, continue to evaluate kidney function. May need to consider IV fluids, to avert risk of severe and/or permanent kidney damage. -currently Patient is still making urine and labs reveal kidney function remains WNL -Will continue to assess dehydration however?without fluids patient will at some point risks severe and even permanent kidney damage. -junior technical writer has discussed case with both Psychiatric Director Dr. Pérez and several hospitalists (listed throughout) -will continue to monitor labs as pt allows C.?Thoracic aneurysm: Patient now taking metoprolol and amlodipine daily consulted with Alternative [employer] Specialist Dr. Pennington and appreciate recommendations above -initially Pt refuses to allow CT to Assess thoracic aneurysm (last assessed Nov 2021 at 4.3cm; however while he initially c/o of ?sudden onset of substernal upper abdominal pain on eating/drinking, this complaint has resolved making this no longer a concern) Patient educated on: therapeutic strategies Informed Consent: understands and further education needed Reason for contiued inpatient stay Substantial Risk for: rapid decompensation Time Spent With Patient Time: Total time managing care of this patient today ____ minutes.
--- NOTE | 2022-04-19 22:10 | P.PNPSI_ITS ---
Subjective Subjective Date of Service: 04/20/22 Reason For Visit: psychosis, delusions of persecution, SI Interim History: Met with patient; Discussed with team ?Patient continues to push himself to be out of his room more, get his meals on his own, walk the halls.? However he still does not feel able to get himself to shower, changed his clothes or brushes teeth.? He also remains concerned with delusional worries about his body though he denies any complaints. Mental Status Exam Mental Status Exam Narrative: Pt is alert and oriented; behavior is depressed, sitting on bed; little easier with which to engage; in casual attire, scruffy facial hair but adequate hygiene; mood is described as the same affect depressed but more expressive, less blunted; adequate eye contact; Speech is normal rate, volume and prosody and not pressured; psychomotor retardation present but improving; thought process is goal directed; Thought content is on trying to push himself; remains with somatic delusional worries; denies any SI/HI. There is no evidence of perceptual disturbance. Patients insight and judgment are impaired but with some improvement. Diagnostics Vital Signs (24Hr): Vital Signs - 24 hr 04/19/22 08:34 04/19/22 19:17 Temperature 98.5 F 98.0 F Pulse Rate 67 69 Respiratory Rate 16 18 Blood Pressure 101/61 94/63 Pulse Oximetry 98 97 Oxygen Delivery Method Room Air Room Air BMI result Body Mass Index 48.2 Labs 03/17/22 14:30 04/18/22 08:00 Labs: Laboratory Results - last 48 hr 04/18/22 08:00 Sodium 142 Potassium 3.5 Chloride 109 H Carbon Dioxide 24 Anion Gap 13 BUN 10 Creatinine 0.74 Estim Creat Clear Calc 135.6 Estimated GFR > 60 Random Glucose 76 Calcium 8.7 D Total Bilirubin 0.5 AST 54 H ALT 117 H Alkaline Phosphatase 68 Total Protein 5.2 L Albumin 3.1 L Imaging Radiology Impressions: ITS Impressions KUB X-Ray 03/18/22 16:35 IMPRESSION: Unremarkable examination. Medications Medications Current Medications Acetaminophen (Acetaminophen 325 Mg Tablet) 650 mg PO Q6H PRN PRN Reason: Headache/Pain Mild Scale (1-3) Al Hydroxide/Mg Hydroxide (Magnesium Hydrox/Alum Hydrox 30 Ml Oral.Susp) 30 ml PO Q6H PRN PRN Reason: Heartburn/Nausea Last Admin: 04/13/22 13:17 Dose: 30 ml Amlodipine Besylate (Amlodipine Besylate 5 Mg Tablet) 5 mg PO DAILY [facility]; Protocol Last Admin: 04/19/22 08:47 Dose: 5 mg Fluoxetine HCl (Fluoxetine Hcl 20 Mg Capsule) 40 mg PO DAILY [facility] Last Admin: 04/19/22 08:47 Dose: 40 mg Lorazepam (Lorazepam 2 Mg/Ml Vial) 1 mg IM BID PRN PRN Reason: If refuses PO Lorazepam (Lorazepam 1 Mg Tablet) 1 mg PO BID@0900,1600 [facility] Last Admin: 04/19/22 15:40 Dose: 1 mg Magnesium Hydroxide (Milk Of Magnesia 30 Ml Oral.Susp) 30 ml PO DAILY PRN PRN Reason: Constipation Metoprolol Succinate (Metoprolol Succinate Er 25 Mg Tab.Er.24h) 25 mg PO DAILY [facility]; Protocol Last Admin: 04/19/22 08:47 Dose: 25 mg Olanzapine (Olanzapine 10 Mg Vial) 10 mg IM DAILY PRN PRN Reason: if refuses PO Last Admin: 04/01/22 11:32 Dose: 10 mg Olanzapine (Olanzapine Odt 10 Mg Tab.Rapdis) 20 mg TRANSLINGU BEDTIME [facility] Last Admin: 04/19/22 20:03 Dose: 20 mg Polyethylene Glycol (Polyethylene Glycol 3350 17 Gm Powd.Pack) 17 gm PO DAILY PRN PRN Reason: constipation Sodium Biphosphate/Sodium Phosphate (Sodium Phosphate,Bonner-Dibasic 133 Ml Enema) 133 ml CO ONCE PRN PRN Reason: Constipation Trazodone HCl (Trazodone Hcl 50 Mg Tablet) 50 mg PO BEDTIME PRN PRN Reason: Insomnia Allergies Allergies Allergy/AdvReac Type Severity Reaction Status Date / Time No Known Allergies Allergy Verified 03/17/22 16:59 Assessment & Plan Assessment & Plan (1) Somatic delusion disorder: Status: Acute Code(s): F22 - Delusional disorders (2) MDD (major depressive disorder), severe: Status: Acute Code(s): F32.2 - Major depressive disorder, single episode, severe without psychotic features (3) MACIEL (generalized anxiety disorder): Status: Acute Code(s): F41.1 - Generalized anxiety disorder (4) Thoracic aortic aneurysm: Status: Acute Code(s): I71.20 - Thoracic aortic aneurysm, without rupture, unspecified Assessment and Plan: Known chronic thoracic aortic aneurysm without any acute symptoms. This is a chronic condition and there is no acute due to this lesion. It needs to be t reated in the long run with medications such as metoprolol and other antihypertensive is a blood pressure remains elevated on metoprolol therapy to reduce she was stressed on the aorta. However is not having any acute symptoms at this point in time. Risk of rupture is very low in mild thoracic aortic aneurysm. His refusal of taking medication appears to be due to lack of understanding as well as his psychiatric condition that prevents him from processing the information. I would concentrate on treating his psychiatric condition so as to then eventually able to understand the need for taking medications. In the long run he will need to be followed as an outpatient by her internal controls consultant that he was following before. If he has intermittent hypertensive episode which again seems to be driven by acute anxiety, would consider treating the anxiety disorder. Can use metoprolol intramuscularly if needed for acute hypertension. Although patient is currently refusing taking his medication and focus should be try to make him understand to take his medications. There is no relation should between thoracic aortic aneurysm and QT prolongation. Use of psychoactive medication as needed can be used and I do not see any clear contraindication, his EKG done on admission shows normal QTC interval. Usual precautions for QT prolongation with avoidance of other QT prolonging drugs and maintaining electrolytes especially magnesium and potassium in normal range. Also can check QTC interval after initiating psychoactive medications at a known to prolong QT interval. Will follow up if need be. Plan HPI: pt is a 46 yo male with long hx of anxiety, thoracic aneurysm (dx Nov 2021) who presents for severe anxiety in face of difficulty eating/drinking since this past monday. Pt is accompanied by his mother.? -Pt reports that this past monday he stopped being able to eat or drink since it caused pain (pointing to area just below his xiphoid process) and wretching. -hx of severe anxiety -but no hx of psychosis; no hx lyn Patient's parents review timeline events leading up to this admission: Prior to this summer, patient was overall doing fine, worked, drove his car and for the past 2 years had no obvious problems.? Parents agree that patient is drinking likely kept his anxiety down to some degree -September:? sister got diagnosed with melanoma very upsetting for patient -September:? patient had painless hematuria, cystoscopy did have a finding but it was benign -November:? About 4 years ago patient was diagnosed with thoracic aneurysm however he has not followed up.? This past summer he was going to the emergency room multiple times for various problems and eventually agreed to thoracic CT which showed that aneurysm had increased to 4.3 mg -December:? Patient had a severely ingrown toenail which required surgical extraction -January: Patient diagnosed with macular degeneration is right eye -over these months patient has been eating less and less, saying that he had little appetite, did not like the smell of meat and has lost 20 or more lb -March: on Monday patient had bloody stool; 1st bowel movement in a week On Monday patient suddenly had chest pain and subsequent retching after drinking any fluid or eating anything On 02:30 patient went to [facility] ED, blood labs were drawn but no imaging or or labs; no fluid; long wait prompted patient to return home but he then came to [facility] where he got IV fluid HOSPITAL COURSE: .03/19 meeting w/ parents; pt anxious, lamenting that nothing can be done for him, just let him go...asking his parents to just leave him somewhere...Type Rolling Machine Operator asked where the side of the road? and he says yes. He denies any SI and laments i want to drink i want to eat...i just can't...i can't explain it.. but goes on to repeat that nothing can be done for him.? Patient refuses to believe that marketing writer has seeing other patients who could not eat or drink, saying that this is a unique situation.? Type Rolling Machine Operator and parents together tried to encourage patient to take another Ativan under his tongue, which helped yesterday however he refused and kept saying it will not help... there is no point (after patient took Ativan under his tongue he was much more reasonable and able to engage with marketing writer and agreed that perhaps he could be helped; at that time he agreed to KUB, barium swallow and thoracic CT-each intervention was explained to patient.? Patient got the KUB but was worried about the CT and eventually refused CT).? Patient refus ed an IV fluids for the same reason saying it is not going to help. Patient has a thoracic aneurysm and has not been taking his metoprolol or amlodipine saying he is unable to swallow.? Type Rolling Machine Operator discussed with patient who understands the need for these medications for his thoracic aneurysm however He refuses IV metoprolol saying it's not going to help...? Nothing is going to help....? You can not fix me.... -patient reported that he did make urine today, that it was brown and bubbly Type Rolling Machine Operator, Patient and mother and father discussed healthcare proxy and patient was initially ambivalent.? Type Rolling Machine Operator explained the details of healthcare proxy;? patient asked appropriate questions and expressed he understood and said he trusts his parents and that they are great. Patient signed healthcare proxy d esignating his mother and than his father as alternate. Discussed case with Hospitalist Dr. Hernandez, Dr. Law (GI) and internal controls consultant Dr. Serrano -Barrium swallow on hold to first r/o obstruction (per amrik Law) with KUB -KUB ordered (per Dr. Law): unremarkable -CT chest/angio/aortic ordered with IV contrast to r/o worsening thoracic aneurysm (per dr. Serrano-though considers this unlikely); pt refused -fleet enema ordered: refused 03/20 Patient remains delusional 03/21 Remains delusoinal. He was able to drink some, small amount of fluid; refused IV; again discussed w/ patient consequences of refusal but he maintains that it won't help anyway. 03/22 seems more depressed today and does not respond with anxious lament when approached with questions.? Remains delusional and refuses IV or any kind of medication or treatment.? He seems to agree to continue allowing lab work for monitoring kidney functions. -potassium mildly low today -BUN/creatinine WNL 03/23 patient remains with paranoid delusional thinking regarding his physical health.? He is trying to eat and drink and has been able to keep of food and fluids down.? He continues to refuse medication of any kind, including medications prescribed by internal controls consultant to prevent thoracic aneurysm from worsening.? Both patient's parents/healthcare proxy want him to take medications including metoprolol and amlodipine. -lytes: WNL -BUN creatinine: WNL -patient is taking in enough fluid that his kidney function remains intact and at this time patient appears stable without IV fluids -he refuses IV for fluids, refuses thoracic CT, refuses barium swallow, refuses Fleet enema, refuses occult stool test; intermittently refuses labs; refuses all medication including IM and SL); thus far he has allowed labwork to monitor for kidney function.? Patient's anxiety is chronic but has reached a psychotic level and patient does not have the capacity to make medical decisions for himself. Patient has a detailed history of seeking treatment for his ailments. However, now he is disorganized; he says he wants to eat and drink, does not want to ...wants to live, does not want to damage his kidneys... however he refuses nearly all?treatments/interventions. -marketing writer has discussed case w/ hospitalbill and TRESSA 03/24 Patient remains delusional and despondent.? He says he is not good and continues to say I do not know what I am going to do I am just lost. Type Rolling Machine Operator discussed reasons to try medications to which patient says it makes sense however he follows up with I just do not know......i'm in bad shape... the only thing I know is that there are no solutions..? I am certain about... Type Rolling Machine Operator later met with patient again while his parents were visiting; patient's parents are urged him to try medications that marketing writer is offering however patient adamantly refuses.? He tried to help marketing writer and family understand by saying I do not want to , I just know there is not a chance.? It is the only thing left that I do know. ? Family discussion about healthcare proxy and involuntary commitment which patient understands. -Lytes: WNL -BUN/creatinine: WNL -Patient making urine -Patient drank about 2 cups of water by miday and drank and orange juice box; also ate a fruit cup and a tangerine -given labs and fluid intake, patient appears stable without IV fluids 03/25/2022 Patient remains anxious despondent to me a appears to be psychotically depressed somatically delusional and on able to take in information or explain his self cyst drug active and potentially life-threatening behavior if he markedly limits food and fluids based on no rational explanation.? Refusing medical workup.? Patient has upcoming court hearing for retention and treatment plan.? Try to develop therapeutic [place] encourage labs every other day monitor food and fluid intake may intermittently need IV fluids If patient remains acute may benefit from ECT treatment which would have a more acute impact potentially 03/29/22 pt Involuntarily committed with substituted judgment for medication.? Type Rolling Machine Operator discussed this with patient who said nothing is going to help 03/30 patient starting on Zyprexa; unable to believe he can take it p.o. or SL s o given IM.? Patient very anxious, does not think anything will help 03/31 Remains delusional; Only Drinking when prompted to do so. Patient agrees there is no chest pain when eating or drinking and that doing so does not make him retch/vomit.? However he continues to assert that he can not drink even when he does so in front of marketing writer.? Creatinine bumped up today.? Still within normal limits; Will check daily 04/01 remains delusional; no insight poor judgment; clearly mentally tortured by paranoid delusion. Needs constant prompting to drink; passively allows oral care. Case discussed with Dr. Pérez who agrees with current treatment plan -tachycardic; kidney function still within normal limits; mildly hypernatremic, likely from dehydration; will order CPK for tomorrow although no BRETT 04/02/22 remains with delusional sx. accepted PO meds today. Team is strongly encouraging food and fluids. Responds to consistent encouragement. Met with pt and mother, then parents after their visit. 04/03/22: Continue current plan. 04/04/22: Daily labs and monitoring. Consider possibly decreasing Lorazepam as it may be activating depressive sx. 04/05/22: Patient remains delusional, depressed and anxious; however he is eating and drinking adequately without prompting and lab work remains within normal limits. Patient is also little more communicative. Will start Prozac for anxiety/depression and OCD like symptoms; Prozac is also often used in combination with Zyprexa for treatment of depression. 04/06 continued somatic delusional worries; however continues to eat and drink adequately. Will give medications another day or so and then consider increasing doses 04/08 no change; continues to eat and drink adequately. Kidney function and lytes within normal limits however mildly increased ALT, possibly due to Prozac. Will increase, however will monitor. Choosing to increase Prozac since patient's illness is primarily anxiety though he also has a psychotic depression. Prozac has less side effect risks in general. That said may also eventually increase Zyprexa 04/09 remains psychotically depressed, with pronounced negative symptoms. Will likely increase Zyprexa 04/10 continue current regimen; eating and drinking, however not attending to any other ADLs. 04/11 seems that patient has plateaued; he is eating and drinking and taking medication and with prompting willing to walk the halls but otherwise remains depressed, disheveled, not attending to ADLs including brushing his teeth, bat maría changing clothing or getting out of bed unless prompted. Remains with delusional belief that something is irrevocably wrong with his body and that he can't explain it... Not responsive to reality testing. He is overall a little less anxious which is helpful. Will likely increase Zyprexa for continued psychotic depression. Patient had asked what he needs to do for discharge response given his start doing some of the things he would normally do such is bathe, brushes teeth, changes clothes, talk with others... to Which patient responded I do not think I can do that -at this time there is no less secure place for patient to receive treatment. He is eating and drinking but only because food and drink are brought to him; he walks the ahn 2 to 3 times a day but only because he is repeatedly prompted by staff andknows that he will end up getting Lovenox injections daily if he does not; he takes his medications however only because there court ordered. Without around the clock, trained, supportive staff and court-ordered medication, patient would rapidly decompensate. Case discussed with Dr. Pérez and team; will continue with medication titration however ECT is discussed and remains an option. 04/13 no change in presentation; complained of mild chest pain which started last night resolved and then resumed today. Discussed with hospitalist and patient had workup with unremarkable EKG and negative troponins. Will increase Prozac to 30 mg. 04/14 no chest pain no N/V; remains despondent with psychotic depression; broached the topic of ECT is potential treatment to which patient said it will not help; marketing writer reviewed note by hospitalist TRESSA regarding yesterday's chest pain and marketing writer agrees with conclusion and proposed treatment. Type Rolling Machine Operator asked patient what he thinks about all day as he lies in bed for most of it, hardly talking or interacting w/ anyone. Pt says nothing really and that his mind is mostly blank about during the day as he spends all of it lying in bed by himself not really talking to anyone, which makes OCD less likely 04/15 remains depressed; no insight; will increase Zyprexa to 20 and Prozac to [address] Pérez who agrees with this plan and is also starting to wonder if ECT might be necessary. It is possible try other antipsychotic however patient has had psychotic depression for nearly a month and a longer it persists the harder it can be to treat 04/16 continue current treatment plan; will change vitals back to Q b.i.d. Discussed case with nursing; met with patient; discussed case with pt's parents/HCP; reviewed vitals and WNL so will change back to BID; reviewed labs and will recheck CMP (K was mildly low); 04/17 some a mild improvement seen in patients effort as he is walking the halls without prompting, getting out of his room to get meal men use and agrees to try and sit in the milieu and watch TV. Discussed case with nursing who agrees that pt is mildly improved, little brighter affect; met with patient; reviewed vitals and WNL 04/18 some improvement 04/20 Patient remains depressed and with delusional worries.? He has improved some on medication and is now eating and drinking; however he still does not think he is able to shower or brush his teeth or changes clothes, things that he has normally done his entire life, demonstrating that both depression and delusions remain significant.? Type Rolling Machine Operator has discussed the case with colleague, Dr. Pérez who agrees that it is premature to conclude that patient has turned a corner and will continue improving; remains very possible that he will plateau and then again decompensate. There is concern that the longer his delusion/depression lingers, the harder it can become to treat.? Thus, will give a little more time for current medication doses to see if they can be more effective, however it remains very possible the patient will require ECT. ?? 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 Symptoms likley formally subdued with alcohol abuse Patient has hx of anxiety started in childhood.? However has functioned in the community with almost no history of psychiatric meds/therapy. No hx of any psychosis or lyn.? For past 2 years, he has worked run in the [employer], drives his car and has functioned successfully.? Starting this summer patient has undergone a series of stressful events (sisters cancer dx; patients own illness) triggering excessive worry and he's been going to the ED for psychosomatic complaints (along with organic ones); he has become unable to fun ction, along worse, does not drive, not attending to ADLs. His parents agree that given patient's baseline anxiety, all these events combined into overwhelming anxiety and and tipped scales for him decompensate leading to this admission.? Patient is not manic; though he has paranoid, somatic delusions, he has no known history of psychotic illness. Pt's MACIEL/Somatic delusional worries (and possibly OCD) about his organic medical illness have become delusional making it difficult to ascertain what is going on and whether there is an organic component to his complaint that he cannot keep down food or water. Patient has no insight that he has delusional thoughts (he had 1 fleeting moment of insight after Ativan lowered anxiety). Although he can understand possible concerns/consequences of refusing treatment (such risks of worsening kidney function,which he does not want and so he eventually consents to getting blood draws to monitor) his paranoid delusional thinking makes him think all treatments are useless, won't help him and that his situation is hopeless. He is unaware the role his anxiety plays in confounding his thinking, insisting nothing will help, even when some of his complaints could be resolved with something as simple as an enema. UPDATE 04/14/22 Patient has been eating and drinking adequately without need for prompting. Started out as severe anxiety that had become psychotic and produced somatic delusional disorder; anxiety seems to have subsided and patient is more p sychotically depressed with delusional somatic beliefs and negative symptoms anhedonia, anergia, avolition. Not attending to ADLs, lies in bed despondent all day; only walks the halls when prompted. Less likely OCD and pt does not c/o intrusive thoughts. UPDATE 04/17/22 still with somatic delusions however patient may be improving some and is putting in more effort towards behavioral activation. PLAN: Section 8b, involuntarily Civilly committed on 03/29.? q15min checks.? Signed HCP on 03/19/22 -COURT AFFIRMED HCP (04/08/2022): HCP's notified: Healthcare proxy invoked and now affirmed by the court. Healthcare proxies are 1st, patient's mother Le and then 2nd his father Chris. 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 -He does not want to or harm his body, however he is convinced it Is hopeless.? -continue Zyprexa/Zydis 20mg q.h.s. for now to make sure not causing daytime sedation:?COURT ORDERED; IF REFUSES GIVE IM zyprexa (discussed risks/benefits of this medication and antipsychotics to HCP's) -DC Ativan 1 mg pt rather not and marketing writer agrees to dc -Continue Prozac 40 mg daily for anxiety/depression and OCD like symptoms -patient agrees to walk the halls 3 times a day -ECT considered vs change to abilify, other med options B. Patient now eating and drinking adequately?(Minimal PO intake fluid/food: RESOLVED:?psychogenic origin) -now eating and drinking daily, even without prompting -making urine daily; Bun/Cr and Lytes remain WNL? -Ordered oral hygiene care t.i.d. with chlorhexidine mouthwash -if patient reverts back to refusal to drink, continue to evaluate kidney function. May need to consider IV fluids, to avert risk of severe and/or permanent kidney damage. -currently Patient is still making urine and labs reveal kidney function remains WNL -Will continue to assess dehydration however?without fluids patient will at some point risks severe and even permanent kidney damage. -marketing writer has discussed case with both Psychiatric Director Dr. Pérez and several hospitalists (listed throughout) -will continue to monitor labs as pt allows C.?Thoracic aneurysm: Patient now taking metoprolol and amlodipine daily consulted with Public Area Supervisor Dr. Pennington and appreciate recommendations above -initially Pt refuses to allow CT to Assess thoracic aneurysm (last assessed Nov 2021 at 4.3cm; however while he initially c/o of ?sudden onset of substernal upper abdominal pain on eating/drinking, this complaint has resolved making this no longer a concern) Patient educated on: diagnosis, medication risk/benefits and therapeutic strategies Informed Consent: understands, does not understand and further education needed Reason for contiued inpatient stay Substantial Risk for: inability to function Time Spent With Patient Time: Total time managing care of this patient today ____ minutes.
[2022-04-20 08:03] VITALS: BP 108/58; PULSE 65; RESP 16; TEMP 36.7; O2SAT 98
[2022-04-20] MEDS: amLODIPine Besylate 5 MG TABLET PO (08:50)
[2022-04-20] MEDS: LORazepam 1 MG TABLET PO ×2 (08:50→16:26)
[2022-04-20] MEDS: FLUoxetine HCl 20 MG CAPSULE 40 MG PO (08:50)
[2022-04-20] MEDS: OLANZapine ODT 10 MG TAB.RAPDIS 20 MG TRANSLINGU (21:11)
--- NOTE | 2022-04-20 22:27 | PC.NURSE ---
Pt. stated that his mood is a little better today. However, he did express concern that his nausea and esophageal pain would return since Prilosec has been discontinued. Advised him to speak with Dr. Vanessa tomorrow if he feels any returning discomfort.
[2022-04-21 07:00] VITALS: BMI 34.5
[2022-04-21] MEDS: FLUoxetine HCl 20 MG CAPSULE 40 MG PO (08:46)
[2022-04-21] MEDS: LORazepam 1 MG TABLET PO ×2 (08:46→16:27)
[2022-04-21] MEDS: Metoprolol Succinate ER 25 MG TAB.ER.24H PO (08:46)
[2022-04-21] MEDS: amLODIPine Besylate 5 MG TABLET PO (08:46)
--- NOTE | 2022-04-21 09:37 | P.PNPSI_ITS ---
Subjective Subjective Date of Service: 04/21/22 Reason For Visit: psychosis, delusions of persecution, SI Interim History: Met w/ patient; Discussed w/ Team; discussed with collegue who thinks ECT is probably option pt did brush teeth; still won't shower; still w/ somatic delusions. Pt ambivalent; says he does not feel any better even though he can see he's able to engage more. Discussed risk of staying at this plateau, potential limitations of medications and treatment with ECT. Pt said he'd discuss w/ family. Mental Status Exam Mental Status Exam Narrative: Pt is alert and oriented; behavior is depressed, sitting on bed; little easier with which to engage; in casual attire, scruffy facial hair but adequate hygiene; mood is described as the same affect depressed but more expressive, less blunted; adequate eye contact; Speech is normal rate, volume and prosody and not pressured; psychomotor retardation present but improving; thought process is goal directed; Thought content is on trying to push himself; remains with somatic delusional worries; denies any SI/HI. There is no evidence of perceptual disturbance. Patients insight and judgment are impaired but with some improvement. Diagnostics Vital Signs (24Hr): BMI result Body Mass Index 48.2 Labs 03/17/22 14:30 04/18/22 08:00 Imaging Radiology Impressions: ITS Impressions KUB X-Ray 03/18/22 16:35 IMPRESSION: Unremarkable examination. Medications Medications Current Medications Acetaminophen (Acetaminophen 325 Mg Tablet) 650 mg PO Q6H PRN PRN Reason: Headache/Pain Mild Scale (1-3) Al Hydroxide/Mg Hydroxide (Magnesium Hydrox/Alum Hydrox 30 Ml Oral.Susp) 30 ml PO Q6H PRN PRN Reason: Heartburn/Nausea Last Admin: 04/13/22 13:17 Dose: 30 ml Amlodipine Besylate (Amlodipine Besylate 5 Mg Tablet) 5 mg PO DAILY [facility]; Protocol Last Admin: 04/21/22 08:46 Dose: 5 mg Fluoxetine HCl (Fluoxetine Hcl 20 Mg Capsule) 40 mg PO DAILY [facility] Last Admin: 04/21/22 08:46 Dose: 40 mg Lorazepam (Lorazepam 2 Mg/Ml Vial) 1 mg IM BID PRN PRN Reason: If refuses PO Lorazepam (Lorazepam 1 Mg Tablet) 1 mg PO BID@0900,1600 [facility] Last Admin: 04/21/22 08:46 Dose: 1 mg Magnesium Hydroxide (Milk Of Magnesia 30 Ml Oral.Susp) 30 ml PO DAILY PRN PRN Reason: Constipation Metoprolol Succinate (Metoprolol Succinate Er 25 Mg Tab.Er.24h) 25 mg PO DAILY [facility]; Protocol Last Admin: 04/21/22 08:46 Dose: 25 mg Olanzapine (Olanzapine 10 Mg Vial) 10 mg IM DAILY PRN PRN Reason: if refuses PO Last Admin: 04/01/22 11:32 Dose: 10 mg Olanzapine (Olanzapine Odt 10 Mg Tab.Rapdis) 20 mg TRANSLINGU BEDTIME [facility] Last Admin: 04/20/22 21:11 Dose: 20 mg Polyethylene Glycol (Polyethylene Glycol 3350 17 Gm Powd.Pack) 17 gm PO DAILY PRN PRN Reason: constipation Sodium Biphosphate/Sodium Phosphate (Sodium Phosphate,[place]-Dibasic 133 Ml Enema) 133 ml AL ONCE PRN PRN Reason: Constipation Trazodone HCl (Trazodone Hcl 50 Mg Tablet) 50 mg PO BEDTIME PRN PRN Reason: Insomnia Allergies Allergies Allergy/AdvReac Type Severity Reaction Status Date / Time No Known Allergies Allergy Verified 03/17/22 16:59 Assessment & Plan Assessment & Plan (1) Somatic delusion disorder: Status: Acute Code(s): F22 - Delusional disorders (2) MDD (major depressive disorder), severe: Status: Acute Code(s): F32.2 - Major depressive disorder, single episode, severe without psychotic features (3) MACIEL (generalized anxiety disorder): Status: Acute Code(s): F41.1 - Generalized anxiety disorder (4) Thoracic aortic aneurysm: Status: Acute Code(s): I71.20 - Thoracic aortic aneurysm, without rupture, unspecified Assessment and Plan: Known chronic thoracic aortic aneurysm without any acute symptoms. This is a chronic condition and there is no acute due to this lesion. It needs to be treated in the long run with medications such as metoprolol and other antihypertensive is a blood pressure remains elevated on metoprolol therapy to reduce she was stressed on the aorta. However is not having any acute symptoms at this point in time. Risk of rupture is very low in mild thoracic aortic aneurysm. His refusal of taking medication appears to be due to lack of understanding as well as his psychiatric condition that prevents him from processing the information. I would concentrate on treating his psychiatric condition so as to then eventually able to understand the need for taking medications. In the long run he will need to be followed as an outpatient by her military equipment specialist that he was following before. If he has intermittent hypertensive episode which again seems to be driven by acute anxiety, would consider treating the anxiety disorder. Can use metoprolol intramuscularly if needed for acute hypertension. Although patient is currently refusing taking his medication and focus should be try to make him understand to take his medications. There is no relation should between thoracic aortic aneurysm and QT prolongation. Use of psychoactive medication as needed can be used and I do not see any clear contraindication, his EKG done on admission shows normal QTC interval. Usual precautions for QT prolongation with avoidance of other QT prolonging drugs and maintaining electrolytes especially magnesium and potassium in normal range. Also can check QTC interval after initiating psychoactive medications at a known to prolong QT interval. Will follow up if need be. Plan HPI: pt is a 46 yo male with long hx of anxiety, thoracic aneurysm (dx Nov 2021) who presents for severe anxiety in face of difficulty eating/drinking since this past monday. Pt is accompanied by his mother.? -Pt reports that this past monday he stopped being able to eat or drink since it caused pain (pointing to area just below his xiphoid process) and wretching. -hx of severe anxiety -but no hx of psychosis; no hx lyn Patient's parents review timeline events leading up to this admission: Prior to this summer, patient was overall doing fine, worked, drove his car and for the past 2 years had no obvious problems.? Parents agree that patient is drinking likely kept his anxiety down to some degree -September:? sister got diagnosed with melanoma very upsetting for patient -September:? patient had painless hematuria, cystoscopy did have a finding but it was benign -November:? About 4 years ago patient was diagnosed with thoracic aneurysm however he has not followed up.? This past summer he was going to the emergency room multiple times for various problems and eventually agreed to thoracic CT which showed that aneurysm had increased to 4.3 mg -December:? Patient had a severely ingrown toenail which required surgical extraction -January: Patient diagnosed with macular degeneration is right eye -over these months patient has been eating less and less, saying that he had little appetite, did not like the smell of meat and has lost 20 or more lb -March: on Monday patient had bloody stool; 1st bowel movement in a week On Monday patient suddenly had chest pain and subsequent retching after drinking any fluid or eating anything On 02:30 patient went to [facility] ED, blood labs were drawn but no imaging or or labs; no fluid; long wait prompted patient to return home but he then came to [place] where he got IV fluid HOSPITAL COURSE: .03/19 meeting w/ parents; pt anxious, lamenting that nothing can be done for him, just let him go...asking his parents to just leave him somewhere...Air Traffic Instructor asked where the side of the road? and he says yes. He denies any SI and laments i want to drink i want to eat...i just can't...i can't explain it.. but goes on to repeat that nothing can be done for him.? Patient refuses to believe that telegraphic typewriter operator chief has seeing other patients who could not eat or drink, saying that this is a unique situation.? Air Traffic Instructor and parents together tried to encourage patient to take another Ativan under his tongue, which helped yesterday however he refused and kept saying it will not help... there is no point (after patient took Ativan under his tongue he was much more reasonable and able to engage with telegraphic typewriter operator chief and agreed that perhaps he could be helped; at that time he agreed to KUB, barium swallow and thoracic CT-each intervention was explained to patient.? Patient got the KUB but was worried about the CT and eventually refused CT).? Patient refused an IV fluids for the same reason saying it is not going to help. Patient has a thoracic aneurysm and has not been taking his metoprolol or aml odipine saying he is unable to swallow.? Air Traffic Instructor discussed with patient who understands the need for these medications for his thoracic aneurysm however He refuses IV metoprolol saying it's not going to help...? Nothing is going to help....? You can not fix me.... -patient reported that he did make urine today, that it was brown and bubbly Air Traffic Instructor, Patient and mother and father discussed healthcare proxy and patient was initially ambivalent.? Air Traffic Instructor explained the details of healthcare proxy;? daniele rodriguez asked appropriate questions and expressed he understood and said he trusts his parents and that they are great. Patient signed healthcare proxy designating his mother and than his father as alternate. Discussed case with Hospitalist Dr. Hernandez, Dr. Law (GI) and military equipment specialist Dr. Serrano -Barrium swallow on hold to first r/o obstruction (per amrik Law) with KUB -KUB ordered (per Dr. Law): unremarkable -CT chest/angio/aortic ordered with IV contrast to r/o worsening thoracic aneu rysm (per dr. Serrano-though considers this unlikely); pt refused -fleet enema ordered: refused 03/20 Patient remains delusional 03/21 Remains delusoinal. He was able to drink some, small amount of fluid; refused IV; again discussed w/ patient consequences of refusal but he maintains that it won't help anyway. 03/22 seems more depressed today and does not respond with anxious lament when approached with questions.? Remains delusional and refuses IV or any kind of medication or treatment.? He seems to agree to continue allowing lab work for monitoring kidney functions. -potassium mildly low today -BUN/creatinine WNL 03/23 patient remains with paranoid delusional thinking regarding his physical health.? He is trying to eat and drink and has been able to keep of food and fluids down.? He continues to refuse medication of any kind, including medications prescribed by military equipment specialist to prevent thoracic aneurysm from worsening.? Both patient's parents/healthcare proxy want him to take medications including metoprolol and amlodipine. -lytes: WNL -BUN creatinine: WNL -patient is taking in enough fluid that his kidney function remains intact and at this time patient appears stable without IV fluids -he refuses IV for fluids, refuses thoracic CT, refuses barium swallow, refuses Fleet enema, refuses occult stool test; intermittently refuses labs; refuses all medication including IM and SL); thus far he has allowed labwork to monitor for kidney function.? Patient's anxiety is chronic but has reached a psychotic level and patient does not have the capacity to make medical decisions for himself. Patient has a detailed history of seeking treatment for his ailments. However, now he is disorganized; he says he wants to eat and drink, does not want to ...wants to live, does not want to damage his kidneys... however he refuses nearly all?treatments/interventions. -telegraphic typewriter operator chief has discussed case w/ hospitalist and DANIELE 03/24 Patient remains delusional and despondent.? He says he is not good and continues to say I do not know what I am going to do I am just lost. Air Traffic Instructor discussed reasons to try medications to which patient says it makes sense however he follows up with I just do not know......i'm in bad shape... the only thing I know is that there are no solutions..? I am certain about... Air Traffic Instructor later met with patient again while his parents were visiting; patient's parents are urged him to try medications that telegraphic typewriter operator chief is offering however patient adamantly refuses.? He tried to help telegraphic typewriter operator chief and family understand by saying I do not want to , I just know there is not a chance.? It is the only thing left that I do know. ? Family discussion about healthcare proxy and involuntary commitment which patient understands. -Lytes: WNL -BUN/creatinine: WNL -Patient making urine -Patient drank about 2 cups of water by miday and drank and orange juice box; also ate a fruit cup and a tangerine -given labs and fluid intake, patient appears stable without IV fluids 03/25/2022 Patient remains anxious despondent to me a appears to be psychotically depressed somatically delusional and on able to take in information or explain his self cyst drug active and potentially life-threatening behavior if he markedly limits food and fluids based on no rational explanation.? Refusing medical workup.? Patient has upcoming court hearing for retention and treatment plan.? Try to develop therapeutic [place] encourage labs every other day monitor food and fluid intake may intermittently need IV fluids If patient remains acute may benefit from ECT treatment which would have a more acute impact potentially 03/29/22 pt Involuntarily committed with substituted judgment for medication.? Air Traffic Instructor discussed this with patient who said nothing is going to help 03/30 patient starting on Zyprexa; unable to believe he can take it p.o. or SL so given IM.? Patient very anxious, does not think anything will help 03/31 Remains delusional; Only Drinking when prompted to do so. Patient agrees there is no chest pain when eating or drinking and that doing so does not make him retch/vomit.? However he continues to assert that he can not drink even when he does so in front of telegraphic typewriter operator chief.? Creatinine bumped up today.? Still within normal limits; Will check daily 04/01 remains delusional; no insight poor judgment; clearly mentally tortured by paranoid delusion. Needs constant prompting to drink; passively allows oral care. Case discussed with Dr. Pérez who agrees with current treatment plan -tachycardic; kidney function still within normal limits; mildly hypernatremic, likely from dehydration; will order CPK for tomorrow although no BRETT 04/02/22 remains with delusional sx. accepted PO meds today. Team is strongly encouraging food and fluids. Responds to consistent encouragement. Met with pt and mother, then parents after their visit. 04/03/22: Continue current plan. 04/04/22: Daily labs and monitoring. Consider possibly decreasing Lorazepam as it may be activating depressive sx. 04/05/22: Patient remains delusional, depressed and anxious; however he is eating and drinking adequately without prompting and lab work remains within normal limits. Patient is also little more communicative. Will start Prozac for anxiety/depression and OCD like symptoms; Prozac is also often used in combination with Zyprexa for treatment of depression. 04/06 continued somatic delusional worries; however continues to eat and drink adequately. Will give medications another day or so and then consider increasing doses 04/08 no change; continues to eat and drink adequately. Kidney function and lytes within normal limits however mildly increased ALT, possibly due to Prozac. Will increase, however will monitor. Choosing to increase Prozac since patient's illness is primarily anxiety though he also has a psychotic depression. Prozac has less side effect risks in general. That said may also eventually increase Zyprexa 04/09 remains psychotically depressed, with pronounced negative symptoms. Will likely increase Zyprexa 04/10 continue current regimen; eating and drinking, however not attending to any other ADLs. 04/11 seems that patient has plateaued; he is eating and drinking and taking me dication and with prompting willing to walk the halls but otherwise remains depressed, disheveled, not attending to ADLs including brushing his teeth, bathing changing clothing or getting out of bed unless prompted. Remains with delusional belief that something is irrevocably wrong with his body and that he can't explain it... Not responsive to reality testing. He is overall a little less anxious which is helpful. Will likely increase Zyprexa for continued psychotic depression. Patient had asked what he needs to do for discharge response given his start doing some of the things he would normally do such is bathe, brushes teeth, changes clothes, talk with others... to Which patient responded I do not think I can do that -at this time there is no less secure place for patient to receive treatment. He is eating and drinking but only because food and drink are brought to him; he walks the ahn 2 to 3 times a day but only because he is repeatedly prompted by staff andknows that he will end up getting Lovenox injections daily if he does not; he takes his medications however only because there court ordered. Without around the clock, trained, supportive staff and court-ordered medication, patient would rapidly decompensate. Case discussed with Dr. Pérez and team; will continue with medication titration however ECT is discussed and remains an option. 04/13 no change in presentation; complained of mild chest pain which started last night resolved and then resumed today. Discussed with hospitalist and patient had workup with unremarkable EKG and negative troponins. Will increase Prozac to 30 mg. 04/14 no chest pain no N/V; remains despondent with psychotic depression; broached the topic of ECT is potential treatment to which patient said it will not help; telegraphic typewriter operator chief reviewed note by hospitalist DANIELE regarding yesterday's chest pain and telegraphic typewriter operator chief agrees with conclusion and proposed treatment. Air Traffic Instructor asked patient what he thinks about all day as he lies in bed for most of it, hardly talking or interacting w/ anyone. Pt says nothing really and that his mind is mostly blank about during the day as he spends all of it lying in bed by himself not really talking to anyone, which makes OCD less likely 04/15 remains depressed; no insight; will increase Zyprexa to 20 and Prozac to [address] Pérez who agrees with this plan and is also starting to wonder if ECT might be necessary. It is possible try other antipsychotic however patient has had psychotic depression for nearly a month and a longer it persists the harder it can be to treat 04/16 continue current treatment plan; will change vitals back to Q b.i.d. Discussed case with nursing; met with patient; discussed case with pt's parents/HCP; reviewed vitals and WNL so will change back to BID; reviewed labs and will recheck CMP (K was mildly low); 04/17 some a mild improvement seen in patients effort as he is walking the halls without prompting, getting out of his room to get meal men use and agrees to try and sit in the milieu and watch TV. Discussed case with nursing who agrees that pt is mildly improved, little brighter affect; met with patient; reviewed vitals and WNL 04/18 some improvement 04/20 Patient remains depressed and with delusional worries.? He has improved some on medication and is now eating and drinking; however he still does not think he is able to shower or brush his teeth or changes clothes, things that he has normally done his entire life, demonstrating that both depression and delusions remain significant.? Air Traffic Instructor has discussed the case with colleague, Dr. Pérez who agrees that it is premature to conclude that patient has turned a corner and will continue improving; remains very possible that he will plateau and then again decompensate. There is concern that the longer his delusion/depression lingers, the harder it can become to treat.? Thus, will give a little more time for current medication doses to see if they can be more effective, however it remains very possible the patient will require ECT. ?? 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 Symptoms likley formally subdued with alcohol abuse Patient has hx of anxiety started in childhood.? However has functioned in the community with almost no history of psychiatric meds/therapy. No hx of any psychosis or lyn.? 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 Starting this summer patient has undergone a series of stressful events (sisters cancer dx; patients own illness) triggering excessive worry and he's been going to the ED for psychosomatic complaints (along with organic ones); he has become unable to function, along worse, does not drive, not attending to ADLs. His parents agree that given patient's baseline anxiety, all these events combined into overwhelming anxiety and and tipped scales for him decompensate leading to this admission.? Patient is not manic; though he has paranoid, somatic delusions, he has no known history of psychotic illness. Pt's MACIEL/Somatic delusional worries (and possibly OCD) about his organic medical illness have become delusional making it difficult to ascertain what is going on and whether there is an organic component to his complaint that he cannot keep down food or water. Patient has no insight that he has delusional thoughts (he had 1 fleeting moment of insight after Ativan lowered anxiety). Although he can understand possible concerns/consequences of refusing treatment (such risks of worsening kidney function,which he does not want and so he eventually consents to getting blood draws to monitor) his paranoid delusional thinking makes him think all treatments are useless, won't help him and that his situation is hopeless. He is unaware the role his anxiety plays in confounding his thinking, insisting nothing will help, even when some of his complaints could be resolved with something as simple as an enema. UPDATE 04/14/22 Patient has been eating and drinking adequately without need for prompting. Started out as severe anxiety that had become psychotic and produced somatic delusional disorder; anxiety seems to have subsided and patient is more psychotically depressed with delusional somatic beliefs and negative symptoms anhedonia, anergia, avolition. Not attending to ADLs, lies in bed despondent all day; only walks the halls when prompted. Less likely OCD and pt does not c/o intrusive thoughts. UPDATE 04/17/22 still with somatic delusions however patient may be improving some and is putting in more effort towards behavioral activation. PLAN: Section 8b, involuntarily Civilly committed on 03/29.? q15min checks.? Signed HCP on 03/19/22 -COURT AFFIRMED HCP (04/08/2022): HCP's notified: Healthcare proxy invoked and now affirmed by the court. Healthcare proxies are 1st, patient's mother Le and then 2nd his father Chris. 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 -He does not want to or harm his body, however he is convinced it Is hopeless.? -continue Zyprexa/Zydis 20mg q.h.s. for now to make sure not causing daytime sedation:?COURT ORDERED; IF REFUSES GIVE IM zyprexa (discussed risks/benefits of this medication and antipsychotics to HCP's) -DC Ativan 1 mg pt rather not and telegraphic typewriter operator chief agrees to dc -Continue Prozac 40 mg daily for anxiety/depression and OCD like symptoms -patient agrees to walk the halls 3 times a day -ECT considered vs change to abilify, other med options B. Patient now eating and drinking adequately?(Minimal PO intake fluid/food: RESOLVED:?psychogenic origin) -now eating and drinking daily, even without prompting -making urine daily; Bun/Cr and Lytes remain WNL? -Ordered oral hygiene care t.i.d. with chlorhexidine mouthwash -if patient reverts back to refusal to drink, continue to evaluate kidney function. May need to consider IV fluids, to avert risk of severe and/or permanent kidney damage. -currently Patient is still making urine and labs reveal kidney function remains WNL -Will continue to assess dehydration however?without fluids patient will at some point risks severe and even permanent kidney damage. 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 Pérez and several hospitalists (listed throughout) -will continue to monitor labs as pt allows C.?Thoracic aneurysm: Patient now taking metoprolol and amlodipine daily consulted with Ergonomist Dr. Pennington and appreciate recommendations above -initially Pt refuses to allow CT to Assess thoracic aneurysm (last assessed Nov 2021 at 4.3cm; however while he initially c/o of ?sudden onset of substernal upper abdominal pain on eating/drinking, this complaint has resolved making this no longer a concern) Patient educated on: diagnosis, medication risk/benefits, ECT and therapeutic strategies Informed Consent: understands, does not understand and further education needed Reason for contiued inpatient stay Substantial Risk for: inability to function and rapid decompensation Time Spent With Patient Time: Total time managing care of this patient today ____ minutes.
[2022-04-21 10:00] VITALS: BP 110/58; PULSE 68; RESP 16; TEMP 37.2; O2SAT 98
[2022-04-21 17:13] VITALS: BP 118/81; PULSE 76; RESP 20; TEMP 37.1; O2SAT 98
[2022-04-21] MEDS: OLANZapine ODT 10 MG TAB.RAPDIS 20 MG TRANSLINGU (20:44)
[2022-04-22] MEDS: LORazepam 1 MG TABLET PO ×2 (08:19→16:22)
[2022-04-22] MEDS: Metoprolol Succinate ER 25 MG TAB.ER.24H PO (08:19)
[2022-04-22] MEDS: amLODIPine Besylate 5 MG TABLET PO (08:19)
[2022-04-22] MEDS: FLUoxetine HCl 20 MG CAPSULE 40 MG PO (08:19)
[2022-04-22 08:21] VITALS: BP 112/65; PULSE 81; RESP 18; TEMP 37.1; O2SAT 95
--- NOTE | 2022-04-22 11:41 | HO.PSYCHPN ---
Subjective Subjective Date of Service: 04/22/22 Reason For Visit: psychosis, delusions of persecution, SI Interim History: Pt in room. Pt reports sleeping and eating well. He denies VH/AH but appears internally preoccupied.Somewhat guarded when he reported acid reflux and this underwriter offer to restart omeprazole or other medication like famotidine. Pt reports feeling safe here on unit, he appears not forthcoming in terms of extend of delusional content. Per nursing, no behavioral concerns. Medication Compliance: Yes Side effects from medications: No Attending Groups: No Review of Systems Review of Systems Decreased appetite Nausea, vomiting with p.o. intake Dark yellow/ brown urine Heartburn Denies hematuria Denies chest pain / pressure No shortness of breath Yes Unobtainable due to mental status Mental Status Exam Mental Status Exam Narrative: Pt is alert and oriented; in bed; superficially engaging with this underwriter; in casual attire, scruffy facial hair but adequate hygiene; mood is described as fine affect depressed but more expressive, less blunted; adequate eye contact; Speech is normal rate, volume and prosody and not pressured; psychomotor retardation present but improving; thought process is goal directed; Thought content is on trying to push himself; remains with somatic delusional worries; denies any SI/HI. There is no evidence of perceptual disturbance. Patients insight and judgment are impaired but with some improvement. Diagnostics Vital Signs (24Hr): Vital Signs - 24 hr 04/21/22 17:13 04/22/22 08:21 Temperature 98.7 F 98.7 F Pulse Rate 76 81 Respiratory Rate 20 18 Blood Pressure 118/81 112/65 Pulse Oximetry 98 95 Oxygen Delivery Method Room Air Room Air BMI result Body Mass Index 34.5 Labs 03/17/22 14:30 04/18/22 08:00 Imaging Radiology Impressions: ITS Impressions KUB X-Ray 03/18/22 16:35 IMPRESSION: Unremarkable examination. Medications Medications Current Medications Acetaminophen (Acetaminophen 325 Mg Tablet) 650 mg PO Q6H PRN PRN Reason: Headache/Pain Mild Scale (1-3) Al Hydroxide/Mg Hydroxide (Magnesium Hydrox/Alum Hydrox 30 Ml Oral.Susp) 30 ml PO Q6H PRN PRN Reason: Heartburn/Nausea Last Admin: 04/13/22 13:17 Dose: 30 ml Amlodipine Besylate (Amlodipine Besylate 5 Mg Tablet) 5 mg PO DAILY [facility]; Protocol Last Admin: 04/22/22 08:19 Dose: 5 mg Fluoxetine HCl (Fluoxetine Hcl 20 Mg Capsule) 40 mg PO DAILY [facility] Last Admin: 04/22/22 08:19 Dose: 40 mg Lorazepam (Lorazepam 2 Mg/Ml Vial) 1 mg IM BID PRN PRN Reason: If refuses PO Lorazepam (Lorazepam 1 Mg Tablet) 1 mg PO BID@0900,1600 [facility] Last Admin: 04/22/22 08:19 Dose: 1 mg Magnesium Hydroxide (Milk Of Magnesia 30 Ml Oral.Susp) 30 ml PO DAILY PRN PRN Reason: Constipation Metoprolol Succinate (Metoprolol Succinate Er 25 Mg Tab.Er.24h) 25 mg PO DAILY [facility]; Protocol Last Admin: 04/22/22 08:19 Dose: 25 mg Olanzapine (Olanzapine 10 Mg Vial) 10 mg IM DAILY PRN PRN Reason: if refuses PO Last Admin: 04/01/22 11:32 Dose: 10 mg Olanzapine (Olanzapine Odt 10 Mg Tab.Rapdis) 20 mg TRANSLINGU BEDTIME [facility] Last Admin: 04/21/22 20:44 Dose: 20 mg Polyethylene Glycol (Polyethylene Glycol 3350 17 Gm Powd.Pack) 17 gm PO DAILY PRN PRN Reason: constipation Sodium Biphosphate/Sodium Phosphate (Sodium Phosphate,Garland-Dibasic 133 Ml Enema) 133 ml MD ONCE PRN PRN Reason: Constipation Trazodone HCl (Trazodone Hcl 50 Mg Tablet) 50 mg PO BEDTIME PRN PRN Reason: Insomnia Allergies Allergies Allergy/AdvReac Type Severity Reaction Status Date / Time No Known Allergies Allergy Verified 03/17/22 16:59 Assessment & Plan Assessment & Plan (1) Somatic delusion disorder: Status: Acute Code(s): F22 - Delusional disorders (2) MDD (major depressive disorder), severe: Status: Acute Code(s): F32.2 - Major depressive disorder, single episode, severe without psychotic features (3) MACIEL (generalized anxiety disorder): Status: Acute Code(s): F41.1 - Generalized anxiety disorder (4) Thoracic aortic aneurysm: Status: Acute Code(s): I71.20 - Thoracic aortic aneurysm, without rupture, unspecified Assessment and Plan: Known chronic thoracic aortic aneurysm without any acute symptoms. This is a chronic condition and there is no acute due to this lesion. It needs to be treated in the long run with medications such as metoprolol and other antihypertensive is a blood pressure remains elevated on metoprolol therapy to reduce she was stressed on the aorta. However is not having any acute symptoms at this point in time. Risk of rupture is very low in mild thoracic aortic aneurysm. His refusal of taking medication appears to be due to lack of understanding as well as his psychiatric condition that prevents him from processing the information. I would concentrate on treating his psychiatric condition so as to then eventually able to understand the need for taking medications. In the long run he will need to be followed as an outpatient by her display screen fabricator that he was following before. If he has intermittent hypertensive episode which again seems to be driven by acute anxiety, would consider treating the anxiety disorder. Can use metoprolol intramuscularly if needed for acute hypertension. Although patient is currently refusing taking his medication and focus should be try to make him understand to take his medications. There is no relation should between thoracic aortic aneurysm and QT prolongation. Use of psychoactive medication as needed can be used and I do not see any clear contraindication, his EKG done on admission shows normal QTC interval. Usual precautions for QT prolongation with avoidance of other QT prolonging drugs and maintaining electrolytes especially magnesium and potassium in normal range. Also can check QTC interval after initiating psychoactive medications at a known to prolong QT interval. Will follow up if need be. Plan HPI: pt is a 46 yo male with long hx of anxiety, thoracic aneurysm (dx Nov 2021) who presents for severe anxiety in face of difficulty eating/drinking since this past monday. Pt is accompanied by his mother.? -Pt reports that this past monday he stopped being able to eat or drink since it caused pain (pointing to area just below his xiphoid process) and wretching. -hx of severe anxiety -but no hx of psychosis; no hx lyn Patient's parents review timeline events leading up to this admission: Prior to this summer, patient was overall doing fine, worked, drove his car and for the past 2 years had no obvious problems.? Parents agree that patient is drinking likely kept his anxiety down to some degree -September:? sister got diagnosed with melanoma very upsetting for patient -September:? patient had painless hematuria, cystoscopy did have a finding but it was benign -November:? About 4 years ago patient was diagnosed with thoracic aneurysm however he has not followed up.? This past summer he was going to the emergency room multiple times for various problems and eventually agreed to thoracic CT which showed that aneurysm had increased to 4.3 mg -December:? Patient had a severely ingrown toenail which required surgical extraction -January: Patient diagnosed with macular degeneration is right eye -over these months patient has been eating less and less, saying that he had little appetite, did not like the smell of meat and has lost 20 or more lb -March: on Monday patient had bloody stool; 1st bowel movement in a week On Monday patient suddenly had chest pain and subsequent retching after drinking any fluid or eating anything On 02:30 patient went to [facility] ED, blood labs were drawn but no imaging or or labs; no fluid; long wait prompted patient to return home but he then came to [facility] where he got IV fluid HOSPITAL COURSE: .03/19 meeting w/ parents; pt anxious, lamenting that nothing can be done for him, just let him go...asking his parents to just leave him somewhere...Trouble Tracer asked where the side of the road? and he says yes. He denies any SI and laments i want to drink i want to eat...i just can't...i can't explain it.. but goes on to repeat that nothing can be done for him.? Patient refuses to believe that underwriter has seeing other patients who could not eat or drink, saying that this is a unique situation.? Trouble Tracer and parents together tried to encourage patient to take another Ativan under his tongue, which helped yesterday however he refused and kept saying it will not help... there is no point (after patient took Ativan under his tongue he was much more reasonable and able to engage with underwriter and agreed that perhaps he could be helped; at that time he agreed to KUB, barium swallow and thoracic CT-each intervention was explained to patient.? Patient got the KUB but was worried about the CT and eventually refused CT).? Patient refused an IV fluids for the same reason saying it is not going to help. Patient has a thoracic aneurysm and has not been taking his metoprolol or amlodipine saying he is unable to swallow.? Trouble Tracer discussed with patient who understands the need for these medications for his thoracic aneurysm however He refuses IV metoprolol saying it's not going to help...? Nothing is going to help....? You can not fix me.... -patient reported that he did make urine today, that it was brown and bubbly Trouble Tracer, Patient and mother and father discussed healthcare proxy and patient was initially ambivalent.? Trouble Tracer explained the details of healthcare proxy;? patient asked appropriate questions and expressed he understood and said he trusts his parents and that they are great. Patient signed healthcare proxy designating his mother and than his father as alternate. Discussed case with Hospitalist Dr. Hernandez, Dr. Law (GI) and display screen fabricator Dr. Serrano -Barrium swallow on hold to first r/o obstruction (per amrik Law) with KUB -KUB ordered (per Dr. Law): unremarkable -CT chest/angio/aortic ordered with IV contrast to r/o worsening thoracic aneurysm (per dr. Serrano-though considers this unlikely); pt refused -fleet enema ordered: refused 03/20 Patient remains delusional 03/21 Remains delusoinal. He was able to drink some, small amount of fluid; refused IV; again discussed w/ patient consequences of refusal but he maintains that it won't help anyway. 03/22 seems more depressed today and does not respond with anxious lament when approached with questions.? Remains delusional and refuses IV or any kind of medication or treatment.? He seems to agree to continue allowing lab work for monitoring kidney functions. -potassium mildly low today -BUN/creatinine WNL 03/23 patient remains with paranoid delusional thinking regarding his physical health.? He is trying to eat and drink and has been able to keep of food and fluids down.? He continues to refuse medication of any kind, including medications prescribed by display screen fabricator to prevent thoracic aneurysm from worsening.? Both patient's parents/healthcare proxy want him to take medications including metoprolol and amlodipine. -lytes: WNL -BUN creatinine: WNL -patient is taking in enough fluid that his kidney function remains intact and at this time patient appears stable without IV fluids -he refuses IV for fluids, refuses thoracic CT, refuses barium swallow, refuses Fleet enema, refuses occult stool test; intermittently refuses labs; refuses all medication including IM and SL); thus far he has allowed labwork to monitor for kidney function.? Patient's anxiety is chronic but has reached a psychotic level and patient does not have the capacity to make medical decisions for himself. Patient has a detailed history of seeking treatment for his ailments. However, now he is disorganized; he says he wants to eat and drink, does not want to ...wants to live, does not want to damage his kidneys... however he refuses nearly all?treatments/interventions. -underwriter has discussed case w/ hospitalist and TRESSA 03/24 Patient remains delusional and despondent.? He says he is not good and continues to say I do not know what I am going to do I am just lost. Trouble Tracer discussed reasons to try medications to which patient says it makes sense however he follows up with I just do not know......i'm in bad shape... the only thing I know is that there are no solutions..? I am certain about... Trouble Tracer later met with patient again while his parents were visiting; patient's parents are urged him to try medications that underwriter is offering however patient adamantly refuses.? He tried to help underwriter and family understand by saying I do not want to , I just know there is not a chance.? It is the only thing left that I do know. ? Family discussion about healthcare proxy and involuntary commitment which patient understands. -Lytes: WNL -BUN/creatinine: WNL -Patient making urine -Patient drank about 2 cups of water by miday and drank and orange juice box; also ate a fruit cup and a tangerine -given labs and fluid intake, patient appears stable without IV fluids 03/25/2022 Patient remains anxious despondent to me a appears to be psychotically depressed somatically delusional and on able to take in information or explain his self cyst drug active and potentially life-threatening behavior if he markedly limits food and fluids based on no rational explanation.? Refusing medical workup.? Patient has upcoming court hearing for retention and treatment plan.? Try to develop therapeutic [place] encourage labs every other day monitor food and fluid intake may intermittently need IV fluids If patient remains acute may benefit from ECT treatment which would have a more acute impact potentially 03/29/22 pt Involuntarily committed with substituted judgment for medication.? Trouble Tracer discussed this with patient who said nothing is going to help 03/30 patient starting on Zyprexa; unable to believe he can take it p.o. or SL so given IM.? Patient very anxious, does not think anything will help 03/31 Remains delusional; Only Drinking when prompted to do so. Patient agrees there is no chest pain when eating or drinking and that doing so does not make him retch/vomit.? However he continues to assert that he can not drink even when he does so in front of underwriter.? Creatinine bumped up today.? Still within normal limits; Will check daily 04/01 remains delusional; no insight poor judgment; clearly mentally tortured by paranoid delusion. Needs constant prompting to drink; passively allows oral care. Case discussed with Dr. Pérez who agrees with current treatment plan -tachycardic; kidney function still within normal limits; mildly hypernatremic, likely from dehydration; will order CPK for tomorrow although no BRETT 04/02/22 remains with delusional sx. accepted PO meds today. Team is strongly encouraging food and fluids. Responds to consistent encouragement. Met with pt and mother, then parents after their visit. 04/03/22: Continue current plan. 04/04/22: Daily labs and monitoring. Consider possibly decreasing Lorazepam as it may be activating depressive sx. 04/05/22: Patient remains delusional, depressed and anxious; however he is eating and drinking adequately without prompting and lab work remains within normal limits. Patient is also little more communicative. Will start Prozac for anxiety/depression and OCD like symptoms; Prozac is also often used in combination with Zyprexa for treatment of depression. 04/06 continued somatic delusional worries; however continues to eat and drink adequately. Will give medications another day or so and then consider increasing doses 04/08 no change; continues to eat and drink adequately. Kidney function and lytes within normal limits however mildly increased ALT, possibly due to Prozac. Will increase, however will monitor. Choosing to increase Prozac since patient's illness is primarily anxiety though he also has a psychotic depression. Prozac has less side effect risks in general. That said may also eventually increase Zyprexa 04/09 remains psychotically depressed, with pronounced negative symptoms. Will likely increase Zyprexa 04/10 continue current regimen; eating and drinking, however not attending to any other ADLs. 04/11 seems that patient has plateaued; he is eating and drinking and taking medication and with prompting willing to walk the halls but otherwise remains depressed, disheveled, not attending to ADLs including brushing his teeth, bathing changing clothing or getting out of bed unless prompted. Remains with delusional belief that something is irrevocably wrong with his body and that he can't explain it... Not responsive to reality testing. He is overall a little less anxious which is helpful. Will likely increase Zyprexa for continued psychotic depression. Patient had asked what he needs to do for discharge response given his start doing some of the things he would normally do such is bathe, brushes teeth, changes clothes, talk with others... to Which patient responded I do not think I can do that -at this time there is no less secure place for patient to receive treatment. He is eating and drinking but only because food and drink are brought to him; he walks the ahn 2 to 3 times a day but only because he is repeatedly prompted by staff andknows that he will end up getting Lovenox injections daily if he does not; he takes his medications however only because there court ordered. Without around the clock, trained, supportive staff and court-ordered medication, patient would rapidly decompensate. Case discussed with Dr. Pérez and team; will continue with medication titration however ECT is discussed and remains an option. 04/13 no change in presentation; complained of mild chest pain which started last night resolved and then resumed today. Discussed with hospitalist and patient had workup with unremarkable EKG and negative troponins. Will increase Prozac to 30 mg. 04/14 no chest pain no N/V; remains despondent with psychotic depression; broached the topic of ECT is potential treatment to which patient said it will not help; underwriter reviewed note by hospitalist TRESSA regarding yesterday's chest pain and underwriter agrees with conclusion and proposed treatment. Trouble Tracer asked patient what he thinks about all day as he lies in bed for most of it, hardly talking or interacting w/ anyone. Pt says nothing really and that his mind is mostly blank about during the day as he spends all of it lying in bed by himself not really talking to anyone, which makes OCD less likely 04/15 remains depressed; no insight; will increase Zyprexa to 20 and Prozac to [address] Pérez who agrees with this plan and is also starting to wonder if ECT might be necessary. It is possible try other antipsychotic however patient has had psychotic depression for nearly a month and a longer it persists the harder it can be to treat 04/16 continue current treatment plan; will change vitals back to Q b.i.d. Discussed case with nursing; met with patient; discussed case with pt's parents/HCP; reviewed vitals and WNL so will change back to BID; reviewed labs and will recheck CMP (K was mildly low); 04/17 some a mild improvement seen in patients effort as he is walking the halls without prompting, getting out of his room to get meal men use and agrees to try and sit in the milieu and watch TV. Discussed case with nursing who agrees that pt is mildly improved, little brighter affect; met with patient; reviewed vitals and WNL 04/18 some improvement 04/20 Patient remains depressed and with delusional worries.? He has improved some on medication and is now eating and drinking; however he still does not think he is able to shower or brush his teeth or changes clothes, things that he has normally done his entire life, demonstrating that both depression and delusions remain significant.? Trouble Tracer has discussed the case with colleague, Dr. Pérez who agrees that it is premature to conclude that patient has turned a corner and will continue improving; remains very possible that he will plateau and then again decompensate. There is concern that the longer his delusion/depression lingers, the harder it can become to treat.? Thus, will give a little more time for current medication doses to see if they can be more effective, however it remains very possible the patient will require ECT. ?? 04/[address] cunningham- continue current tx. 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 Symptoms likley formally subdued with alcohol abuse Patient has hx of anxiety started in childhood.? However has functioned in the community with almost no history of psychiatric meds/therapy. No hx of any psychosis or lyn.? 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 Starting this summer patient has undergone a series of stressful events (sisters cancer dx; patients own illness) triggering excessive worry and he's been going to the ED for psychosomatic complaints (along with organic ones); he has become unable to function, along worse, does not drive, not attending to ADLs. His parents agree that given patient's baseline anxiety, all these events combined into overwhelming anxiety and and tipped scales for him decompensate leading to this admission.? Patient is not manic; though he has paranoid, somatic delusions, he has no known history of psychotic illness. Pt's MACIEL/Somatic delusional worries (and possibly OCD) about his organic medical illness have become delusional making it difficult to ascertain what is going on and whether there is an organic component to his complaint that he cannot keep down food or water. Patient has no insight that he has delusional thoughts (he had 1 fleeting moment of insight after Ativan lowered anxiety). Although he can understand possible concerns/consequences of refusing treatment (such risks of worsening kidney function,which he does not want and so he eventually consents to getting blood draws to monitor) his paranoid delusional thinking makes him think all treatments are useless, won't help him and that his situation is hopeless. He is unaware the role his anxiety plays in confounding his thinking, insisting nothing will help, even when some of his complaints could be resolved with something as simple as an enema. UPDATE 04/14/22 Patient has been eating and drinking adequately without need for prompting. Started out as severe anxiety that had become psychotic and produced somatic delusional disorder; anxiety seems to have subsided and patient is more psychotically depressed with delusional somatic beliefs and negative symptoms anhedonia, anergia, avolition. Not attending to ADLs, lies in bed despondent all day; only walks the halls when prompted. Less likely OCD and pt does not c/o intrusive thoughts. UPDATE 04/17/22 still with somatic delusions however patient may be improving some and is putting in more effort towards behavioral activation. PLAN: Section 8b, involuntarily Civilly committed on 03/29.? q15min checks.? Signed HCP on 03/19/22 -COURT AFFIRMED HCP (04/08/2022): HCP's notified: Healthcare proxy invoked and now affirmed by the court. Healthcare proxies are 1st, patient's mother Le and then 2nd his father Chris. Hansen.?Depression/paranoid delusion/somatic disorder/anxiety?(hx severe anxiety since childhood; coped w/ Etoh abuse; sober 1 yr) -Patient is severely anxious with delusions that someting is very wrong with him that cannot be understood or treated; he has a history of seeking treatment for medical illness and if thinking clearly, would do so now. -He does not want to or harm his body, however he is convinced it Is hopeless.? -continue Zyprexa/Zydis 20mg q.h.s. for now to make sure not causing daytime sedation:?COURT ORDERED; IF REFUSES GIVE IM zyprexa (discussed risks/benefits of this medication and antipsychotics to HCP's) -DC Ativan 1 mg pt rather not and underwriter agrees to dc -Continue Prozac 40 mg daily for anxiety/depression and OCD like symptoms -patient agrees to walk the halls 3 times a day -ECT considered vs change to abilify, other med options B. Patient now eating and drinking adequately?(Minimal PO intake fluid/food: RESOLVED:?psychogenic origin) -now eating and drinking daily, even without prompting -making urine daily; Bun/Cr and Lytes remain WNL? -Ordered oral hygiene care t.i.d. with chlorhexidine mouthwash -if patient reverts back to refusal to drink, continue to evaluate kidney function. May need to consider IV fluids, to avert risk of severe and/or permanent kidney damage. -currently Patient is still making urine and labs reveal kidney function remains WNL -Will continue to assess dehydration however?without fluids patient will at some point risks severe and even permanent kidney damage. -underwriter has discussed case with both Psychiatric Director Dr. Pérez and several hospitalists (listed throughout) -will continue to monitor labs as pt allows C.?Thoracic aneurysm: Patient now taking metoprolol and amlodipine daily consulted with Director Of Gift Planning Dr. Pennington and appreciate recommendations above -initially Pt refuses to allow CT to Assess thoracic aneurysm (last assessed Nov 2021 at 4.3cm; however while he initially c/o of ?sudden onset of substernal upper abdominal pain on eating/drinking, this complaint has resolved making this no longer a concern) Reason for contiued inpatient stay Substantial Risk for: inability to function Time Spent With Patient Time: Total time managing care of this patient today ____ minutes.
[2022-04-22] MEDS: OLANZapine ODT 10 MG TAB.RAPDIS 20 MG TRANSLINGU (20:05)
[2022-04-22 20:28] VITALS: BP 130/74; PULSE 78
[2022-04-23 08:13] VITALS: BP 123/76; PULSE 78; RESP 16; TEMP 36.7; O2SAT 95
[2022-04-23] MEDS: Metoprolol Succinate ER 25 MG TAB.ER.24H PO (08:39)
[2022-04-23] MEDS: LORazepam 1 MG TABLET PO ×2 (08:39→15:51)
[2022-04-23] MEDS: FLUoxetine HCl 20 MG CAPSULE 40 MG PO (08:39)
[2022-04-23] MEDS: amLODIPine Besylate 5 MG TABLET PO (08:40)
[2022-04-23 17:21] VITALS: BP 106/73; PULSE 80; RESP 18; O2SAT 97
[2022-04-23] MEDS: OLANZapine ODT 10 MG TAB.RAPDIS 20 MG TRANSLINGU (20:08)
--- NOTE | 2022-04-23 20:13 | HO.PSYCHPN ---
Subjective Subjective Date of Service: 04/23/22 Reason For Visit: psychosis, delusions of persecution, SI Interim History: Care discussed with nursing. Pt reports he is feeling improved. Today, he had several questions about a three day notice. States he is considering filing on 04/25 as he feels improved and that it may be time to try things out of the hospital. Medication Compliance: Yes Side effects from medications: No Review of Systems Acute medical concerns: No Medical Review of Systems: unchanged Mental Status Exam Mental Status Exam Patient Appearance: Appropriate Patient Orientation: Person, Place, Time and Situation Level of Consciousness: Alert Patient Behavior: Appropriate and Isolative Mood Description: Constricted Affect Description: Constricted Patient Cognition Impaired: No Ability to Follow Directions: Good Speech Pattern: Spontaneous Speech Memory Description: Episodic Impaired Delusions: Present Thought Process: Goal Oriented Thought Content: positive for Goal Oriented Judgement: Fair Diagnostics Vital Signs (24Hr): Vital Signs - 24 hr 04/22/22 20:28 04/23/22 08:13 04/23/22 17:21 Temperature 98.1 F Pulse Rate 78 78 80 Respiratory Rate 16 18 Blood Pressure 130/74 123/76 106/73 Pulse Oximetry 95 97 Oxygen Delivery Method Room Air Room Air BMI result Body Mass Index 34.5 Labs 03/17/22 14:30 04/18/22 08:00 Imaging Radiology Impressions: ITS Impressions KUB X-Ray 03/18/22 16:35 IMPRESSION: Unremarkable examination. Medications Medications Current Medications Acetaminophen (Acetaminophen 325 Mg Tablet) 650 mg PO Q6H PRN PRN Reason: Headache/Pain Mild Scale (1-3) Al Hydroxide/Mg Hydroxide (Magnesium Hydrox/Alum Hydrox 30 Ml Oral.Susp) 30 ml PO Q6H PRN PRN Reason: Heartburn/Nausea Last Admin: 04/13/22 13:17 Dose: 30 ml Amlodipine Besylate (Amlodipine Besylate 5 Mg Tablet) 5 mg PO DAILY [facility]; Protocol Last Admin: 04/23/22 08:40 Dose: 5 mg Fluoxetine HCl (Fluoxetine Hcl 20 Mg Capsule) 40 mg PO DAILY [facility] Last Admin: 04/23/22 08:39 Dose: 40 mg Lorazepam (Lorazepam 2 Mg/Ml Vial) 1 mg IM BID PRN PRN Reason: If refuses PO Lorazepam (Lorazepam 1 Mg Tablet) 1 mg PO BID@0900,1600 [facility] Last Admin: 04/23/22 15:51 Dose: 1 mg Magnesium Hydroxide (Milk Of Magnesia 30 Ml Oral.Susp) 30 ml PO DAILY PRN PRN Reason: Constipation Metoprolol Succinate (Metoprolol Succinate Er 25 Mg Tab.Er.24h) 25 mg PO DAILY [facility]; Protocol Last Admin: 04/23/22 08:39 Dose: 25 mg Olanzapine (Olanzapine 10 Mg Vial) 10 mg IM DAILY PRN PRN Reason: if refuses PO Last Admin: 04/01/22 11:32 Dose: 10 mg Olanzapine (Olanzapine Odt 10 Mg Tab.Rapdis) 20 mg TRANSLINGU BEDTIME [facility] Last Admin: 04/23/22 20:08 Dose: 20 mg Polyethylene Glycol (Polyethylene Glycol 3350 17 Gm Powd.Pack) 17 gm PO DAILY PRN PRN Reason: constipation Sodium Biphosphate/Sodium Phosphate (Sodium Phosphate,Swain-Dibasic 133 Ml Enema) 133 ml MN ONCE PRN PRN Reason: Constipation Trazodone HCl (Trazodone Hcl 50 Mg Tablet) 50 mg PO BEDTIME PRN PRN Reason: Insomnia Allergies Allergies Allergy/AdvReac Type Severity Reaction Status Date / Time No Known Allergies Allergy Verified 03/17/22 16:59 Assessment & Plan Assessment & Plan (1) Somatic delusion disorder: Status: Acute Code(s): F22 - Delusional disorders (2) MDD (major depressive disorder), severe: Status: Acute Code(s): F32.2 - Major depressive disorder, single episode, severe without psychotic features (3) MACIEL (generalized anxiety disorder): Status: Acute Code(s): F41.1 - Generalized anxiety disorder (4) Thoracic aortic aneurysm: Status: Acute Code(s): I71.20 - Thoracic aortic aneurysm, without rupture, unspecified Assessment and Plan: Known chronic thoracic aortic aneurysm without any acute symptoms. This is a chronic condition and there is no acute due to this lesion. It needs to be treated in the long run with medications such as metoprolol and other antihypertensive is a blood pressure remains elevated on metoprolol therapy to reduce she was stressed on the aorta. However is not having any acute symptoms at this point in time. Risk of rupture is very low in mild thoracic aortic aneurysm. His refusal of taking medication appears to be due to lack of understanding as well as his psychiatric condition that prevents him from processing the information. I would concentrate on treating his psychiatric condition so as to then eventually able to understand the need for taking medications. In the long run he will need to be followed as an outpatient by her car repair supervisor that he was following before. If he has intermittent hypertensive episode which again seems to be driven by acute anxiety, would consider treating the anxiety disorder. Can use metoprolol intramuscularly if needed for acute hypertension. Although patient is currently refusing taking his medication and focus should be try to make him understand to take his medications. There is no relation should between thoracic aortic aneurysm and QT prolongation. Use of psychoactive medication as needed can be used and I do not see any clear contraindication, his EKG done on admission shows normal QTC interval. Usual precautions for QT prolongation with avoidance of other QT prolonging drugs and maintaining electrolytes especially magnesium and potassium in normal range. Also can check QTC interval after initiating psychoactive medications at a known to prolong QT interval. Will follow up if need be. Plan HPI: pt is a 46 yo male with long hx of anxiety, thoracic aneurysm (dx Nov 2021) who presents for severe anxiety in face of difficulty eating/drinking since this past monday. Pt is accompanied by his mother.? -Pt reports that this past monday he stopped being able to eat or drink since it caused pain (pointing to area just below his xiphoid process) and wretching. -hx of severe anxiety -but no hx of psychosis; no hx lyn Patient's parents review timeline events leading up to this admission: Prior to this summer, patient was overall doing fine, worked, drove his car and for the past 2 years had no obvious problems.? Parents agree that patient is drinking likely kept his anxiety down to some degree -September:? sister got diagnosed with melanoma very upsetting for patient -September:? patient had painless hematuria, cystoscopy did have a finding but it was benign -November:? About 4 years ago patient was diagnosed with thoracic aneurysm however he has not followed up.? This past summer he was going to the emergency room multiple times for various problems and eventually agreed to thoracic CT which showed that aneurysm had increased to 4.3 mg -December:? Patient had a severely ingrown toenail which required surgical extraction -January: Patient diagnosed with macular degeneration is right eye -over these months patient has been eating less and less, saying that he had little appetite, did not like the smell of meat and has lost 20 or more lb -March: on Monday patient had bloody stool; 1st bowel movement in a week On Monday patient suddenly had chest pain and subsequent retching after drinking any fluid or eating anything On 02:30 patient went to [facility] ED, blood labs were drawn but no imaging or or labs; no fluid; long wait prompted patient to return home but he then came to [place] ED where he got IV fluid HOSPITAL COURSE: .03/19 meeting w/ parents; pt anxious, lamenting that nothing can be done for him, just let him go...asking his parents to just leave him somewhere...Park Ranger asked where the side of the road? and he says yes. He denies any SI and laments i want to drink i want to eat...i just can't...i can't explain it.. but goes on to repeat that nothing can be done for him.? Patient refuses to believe that technical publications writer has seeing other patients who could not eat or drink, saying that this is a unique situation.? Park Ranger and parents together tried to encourage patient to take another Ativan under his tongue, which helped yesterday however he refused and kept saying it will not help... there is no point (after patient took Ativan under his tongue he was much more reasonable and able to engage with technical publications writer and agreed that perhaps he could be helped; at that time he agreed to KUB, barium swallow and thoracic CT-each intervention was explained to patient.? Patient got the KUB but was worried about the CT and eventually refused CT).? Patient refused an IV fluids for the same reason saying it is not going to help. Patient has a thoracic aneurysm and has not been taking his metoprolol or amlodipine saying he is unable to swallow.? Park Ranger discussed with patient who understands the need for these medications for his thoracic aneurysm however He refuses IV metoprolol saying it's not going to help...? Nothing is going to help....? You can not fix me.... -patient reported that he did make urine today, that it was brown and bubbly Park Ranger, Patient and mother and father discussed healthcare proxy and patient was initially ambivalent.? Park Ranger explained the details of healthcare proxy;? patient asked appropriate questions and expressed he understood and said he trusts his parents and that they are great. Patient signed healthcare proxy designating his mother and than his father as alternate. Discussed case with Hospitalist Dr. Hernandez, Dr. Law (GI) and car repair supervisor Dr. Serrano -Barrium swallow on hold to first r/o obstruction (per amrik Law) with KUB -KUB ordered (per Dr. Law): unremarkable -CT chest/angio/aortic ordered with IV contrast to r/o worsening thoracic aneurysm (per dr. Serrano-though considers this unlikely); pt refused -fleet enema ordered: refused 03/20 Patient remains delusional 03/21 Remains delusoinal. He was able to drink some, small amount of fluid; refused IV; again discussed w/ patient consequences of refusal but he maintains that it won't help anyway. 03/22 seems more depressed today and does not respond with anxious lament when approached with questions.? Remains delusional and refuses IV or any kind of medication or treatment.? He seems to agree to continue allowing lab work for monitoring kidney functions. -potassium mildly low today -BUN/creatinine WNL 03/23 patient remains with paranoid delusional thinking regarding his physical health.? He is trying to eat and drink and has been able to keep of food and fluids down.? He continues to refuse medication of any kind, including medications prescribed by car repair supervisor to prevent thoracic aneurysm from worsening.? Both patient's parents/healthcare proxy want him to take medications including metoprolol and amlodipine. -lytes: WNL -BUN creatinine: WNL -patient is taking in enough fluid that his kidney function remains intact and at this time patient appears stable without IV fluids -he refuses IV for fluids, refuses thoracic CT, refuses barium swallow, refuses Fleet enema, refuses occult stool test; intermittently refuses labs; refuses all medication including IM and SL); thus far he has allowed labwork to monitor for kidney function.? Patient's anxiety is chronic but has reached a psychotic level and patient does not have the capacity to make medical decisions for himself. Patient has a detailed history of seeking treatment for his ailments. However, now he is disorganized; he says he wants to eat and drink, does not want to ...wants to live, does not want to damage his kidneys... however he refuses nearly all?treatments/interventions. -technical publications writer has discussed case w/ hospitalist and PA 03/24 Patient remains delusional and despondent.? He says he is not good and continues to say I do not know what I am going to do I am just lost. Park Ranger discussed reasons to try medications to which patient says it makes sense however he follows up with I just do not know......i'm in bad shape... the only thing I know is that there are no solutions..? I am certain about... Park Ranger later met with patient again while his parents were visiting; patient's parents are urged him to try medications that technical publications writer is offering however patient adamantly refuses.? He tried to help technical publications writer and family understand by saying I do not want to , I just know there is not a chance.? It is the only thing left that I do know. ? Family discussion about healthcare proxy and involuntary commitment which patient understands. -Lytes: WNL -BUN/creatinine: WNL -Patient making urine -Patient drank about 2 cups of water by miday and drank and orange juice box; also ate a fruit cup and a tangerine -given labs and fluid intake, patient appears stable without IV fluids 03/25/2022 Patient remains anxious despondent to me a appears to be psychotically depressed somatically delusional and on able to take in information or explain his self cyst drug active and potentially life-threatening behavior if he markedly limits food and fluids based on no rational explanation.? Refusing medical workup.? Patient has upcoming court hearing for retention and treatment plan.? Try to develop therapeutic [place] encourage labs every other day monitor food and fluid intake may intermittently need IV fluids If patient remains acute may benefit from ECT treatment which would have a more acute impact potentially 03/29/22 pt Involuntarily committed with substituted judgment for medication.? Park Ranger discussed this with patient who said nothing is going to help 03/30 patient starting on Zyprexa; unable to believe he can take it p.o. or SL so given IM.? Patient very anxious, does not think anything will help 03/31 Remains delusional; Only Drinking when prompted to do so. Patient agrees there is no chest pain when eating or drinking and that doing so does not make him retch/vomit.? However he continues to assert that he can not drink even when he does so in front of technical publications writer.? Creatinine bumped up today.? Still within normal limits; Will check daily 04/01 remains delusional; no insight poor judgment; clearly mentally tortured by paranoid delusion. Needs constant prompting to drink; passively allows oral care. Case discussed with Dr. Pérez who agrees with current treatment plan -tachycardic; kidney function still within normal limits; mildly hypernatremic, likely from dehydration; will order CPK for tomorrow although no BRETT 04/02/22 remains with delusional sx. accepted PO meds today. Team is strongly encouraging food and fluids. Responds to consistent encouragement. Met with pt and mother, then parents after their visit. 04/03/22: Continue current plan. 04/04/22: Daily labs and monitoring. Consider possibly decreasing Lorazepam as it may be activating depressive sx. 04/05/22: Patient remains delusional, depressed and anxious; however he is eating and drinking adequately without prompting and lab work remains within normal limits. Patient is also little more communicative. Will start Prozac for anxiety/depression and OCD like symptoms; Prozac is also often used in combination with Zyprexa for treatment of depression. 04/06 continued somatic delusional worries; however continues to eat and drink adequately. Will give medications another day or so and then consider increasing doses 04/08 no change; continues to eat and drink adequately. Kidney function and lytes within normal limits however mildly increased ALT, possibly due to Prozac. Will increase, however will monitor. Choosing to increase Prozac since patient's illness is primarily anxiety though he also has a psychotic depression. Prozac has less side effect risks in general. That said may also eventually increase Zyprexa 04/09 remains psychotically depressed, with pronounced negative symptoms. Will likely increase Zyprexa 04/10 continue current regimen; eating and drinking, however not attending to any other ADLs. 04/11 seems that patient has plateaued; he is eating and drinking and taking medication and with prompting willing to walk the halls but otherwise remains depressed, disheveled, not attending to ADLs including brushing his teeth, bathing changing clothing or getting out of bed unless prompted. Remains with delusional belief that something is irrevocably wrong with his body and that he can't explain it... Not responsive to reality testing. He is overall a little less anxious which is helpful. Will likely increase Zyprexa for continued psychotic depression. Patient had asked what he needs to do for discharge response given his start doing some of the things he would normally do such is bathe, brushes teeth, changes clothes, talk with others... to Which patient responded I do not think I can do that -at this time there is no less secure place for patient to receive treatment. He is eating and drinking but only because food and drink are brought to him; he walks the ahn 2 to 3 times a day but only because he is repeatedly prompted by staff andknows that he will end up getting Lovenox injections daily if he does not; he takes his medications however only because there court ordered. Without around the clock, trained, supportive staff and court-ordered medication, patient would rapidly decompensate. Case discussed with Dr. Pérez and team; will continue with medication titration however ECT is discussed and remains an option. 04/13 no change in presentation; complained of mild chest pain which started last night resolved and then resumed today. Discussed with hospitalist and patient had workup with unremarkable EKG and negative troponins. Will increase Prozac to 30 mg. 04/14 no chest pain no N/V; remains despondent with psychotic depression; broached the topic of ECT is potential treatment to which patient said it will not help; technical publications writer reviewed note by hospitalist TRESSA regarding yesterday's chest pain and technical publications writer agrees with conclusion and proposed treatment. Park Ranger asked patient what he thinks about all day as he lies in bed for most of it, hardly talking or interacting w/ anyone. Pt says nothing really and that his mind is mostly blank about during the day as he spends all of it lying in bed by himself not really talking to anyone, which makes OCD less likely 04/15 remains depressed; no insight; will increase Zyprexa to 20 and Prozac to [address] Pérez who agrees with this plan and is also starting to wonder if ECT might be necessary. It is possible try other antipsychotic however patient has had psychotic depression for nearly a month and a longer it persists the harder it can be to treat 04/16 continue current treatment plan; will change vitals back to Q b.i.d. Discussed case with nursing; met with patient; discussed case with pt's parents/HCP; reviewed vitals and WNL so will change back to BID; reviewed labs and will recheck CMP (K was mildly low); 04/17 some a mild improvement seen in patients effort as he is walking the halls without prompting, getting out of his room to get meal men use and agrees to try and sit in the milieu and watch TV. Discussed case with nursing who agrees that pt is mildly improved, little brighter affect; met with patient; reviewed vitals and WNL 04/18 some improvement 04/20 Patient remains depressed and with delusional worries.? He has improved some on medication and is now eating and drinking; however he still does not think he is able to shower or brush his teeth or changes clothes, things that he has normally done his entire life, demonstrating that both depression and delusions remain significant.? Park Ranger has discussed the case with colleague, Dr. Pérez who agrees that it is premature to conclude that patient has turned a corner and will continue improving; remains very possible that he will plateau and then again decompensate. There is concern that the longer his delusion/depression lingers, the harder it can become to treat.? Thus, will give a little more time for current medication doses to see if they can be more effective, however it remains very possible the patient will require ECT. ?? 04/[address] cunningham- continue current tx. 04/23/22- continue current plan of care. Pt considering three day notice for discharge. 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 Symptoms likley formally subdued with alcohol abuse Patient has hx of anxiety started in childhood.? However has functioned in the community with almost no history of psychiatric meds/therapy. No hx of any psychosis or lyn.? 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 Starting this summer patient has undergone a series of stressful events (sisters cancer dx; patients own illness) triggering excessive worry and he's been going to the ED for psychosomatic complaints (along with organic ones); he has become unable to function, along worse, does not drive, not attending to ADLs. His parents agree that given patient's baseline anxiety, all these events combined into overwhelming anxiety and and tipped scales for him decompensate leading to this admission.? Patient is not manic; though he has paranoid, somatic delusions, he has no known history of psychotic illness. Pt's MACIEL/Somatic delusional worries (and possibly OCD) about his organic medical illness have become delusional making it difficult to ascertain what is going on and whether there is an organic component to his complaint that he cannot keep down food or water. Patient has no insight that he has delusional thoughts (he had 1 fleeting moment of insight after Ativan lowered anxiety). Although he can understand possible concerns/consequences of refusing treatment (such risks of worsening kidney function,which he does not want and so he eventually consents to getting blood draws to monitor) his paranoid delusional thinking makes him think all treatments are useless, won't help him and that his situation is hopeless. He is unaware the role his anxiety plays in confounding his thinking, insisting nothing will help, even when some of his complaints could be resolved with something as simple as an enema. UPDATE 04/14/22 Patient has been eating and drinking adequately without need for prompting. Started out as severe anxiety that had become psychotic and produced somatic delusional disorder; anxiety seems to have subsided and patient is more psychotically depressed with delusional somatic beliefs and negative symptoms anhedonia, anergia, avolition. Not attending to ADLs, lies in bed despondent all day; only walks the halls when prompted. Less likely OCD and pt does not c/o intrusive thoughts. UPDATE 04/17/22 still with somatic delusions however patient may be improving some and is putting in more effort towards behavioral activation. PLAN: Section 8b, involuntarily Civilly committed on 03/29.? q15min checks.? Signed HCP on 03/19/22 -COURT AFFIRMED HCP (04/08/2022): HCP's notified: Healthcare proxy invoked and now affirmed by the court. Healthcare proxies are 1st, patient's mother Le and then 2nd his father Luke. A.?Depression/paranoid delusion/somatic disorder/anxiety?(hx severe anxiety since childhood; coped w/ Etoh abuse; sober 1 yr) -Patient is severely anxious with delusions that someting is very wrong with him that cannot be understood or treated; he has a history of seeking treatment for medical illness and if thinking clearly, would do so now. -He does not want to or harm his body, however he is convinced it Is hopeless.? -continue Zyprexa/Zydis 20mg q.h.s. for now to make sure not causing daytime sedation:?COURT ORDERED; IF REFUSES GIVE IM zyprexa (discussed risks/benefits of this medication and antipsychotics to HCP's) -DC Ativan 1 mg pt rather not and technical publications writer agrees to dc -Continue Prozac 40 mg daily for anxiety/depression and OCD like symptoms -patient agrees to walk the halls 3 times a day -ECT considered vs change to abilify, other med options B. Patient now eating and drinking adequately?(Minimal PO intake fluid/food: RESOLVED:?psychogenic origin) -now eating and drinking daily, even without prompting -making urine daily; Bun/Cr and Lytes remain WNL? -Ordered oral hygiene care t.i.d. with chlorhexidine mouthwash -if patient reverts back to refusal to drink, continue to evaluate kidney function. May need to consider IV fluids, to avert risk of severe and/or permanent kidney damage. -currently Patient is still making urine and labs reveal kidney function remains WNL -Will continue to assess dehydration however?without fluids patient will at some point risks severe and even permanent kidney damage. -technical publications writer has discussed case with both Psychiatric Director Dr. Pérez and several hospitalists (listed throughout) -will continue to monitor labs as pt allows C.?Thoracic aneurysm: Patient now taking metoprolol and amlodipine daily consulted with Camera Prototyping Engineer Dr. Pennington and appreciate recommendations above -initially Pt refuses to allow CT to Assess thoracic aneurysm (last assessed Nov 2021 at 4.3cm; however while he initially c/o of ?sudden onset of substernal upper abdominal pain on eating/drinking, this complaint has resolved making this no longer a concern) Informed Consent: understands and further education needed Reason for contiued inpatient stay Substantial Risk for: rapid decompensation Time Spent With Patient Time: Total time managing care of this patient today ____ minutes.
[2022-04-24 09:11] VITALS: BP 116/70; PULSE 76; RESP 16; TEMP 36.7; O2SAT 96
[2022-04-24] MEDS: Metoprolol Succinate ER 25 MG TAB.ER.24H PO (09:16)
[2022-04-24] MEDS: amLODIPine Besylate 5 MG TABLET PO (09:16)
[2022-04-24] MEDS: LORazepam 1 MG TABLET PO ×2 (09:16→16:29)
[2022-04-24] MEDS: FLUoxetine HCl 20 MG CAPSULE 40 MG PO (09:16)
[2022-04-24 19:20] VITALS: BP 95/56; PULSE 85; RESP 14; TEMP 36.6
--- NOTE | 2022-04-24 19:22 | P.PNPSI_ITS ---
Subjective Subjective Date of Service: 04/24/22 Reason For Visit: psychosis, delusions of persecution, SI Interim History: Care discussed with nursing. Pt reports he is well. Denies current questions or concerns at this time. Medication Compliance: Yes Side effects from medications: No Attending Groups: Intermittent Review of Systems Acute medical concerns: No Medical Review of Systems: unchanged Mental Status Exam Mental Status Exam Patient Appearance: Appropriate Patient Orientation: Person, Place, Time and Situation Level of Consciousness: Alert Patient Behavior: Appropriate and Isolative Mood Description: Constricted Affect Description: Constricted Patient Cognition Impaired: No Ability to Follow Directions: Good Speech Pattern: Spontaneous Speech Memory Description: Episodic Impaired Delusions: Present Thought Process: Goal Oriented Thought Content: positive for Goal Oriented Judgement: Fair Diagnostics Vital Signs (24Hr): Vital Signs - 24 hr 04/24/22 09:11 04/24/22 19:20 Temperature 98.0 F 97.8 F Pulse Rate 76 85 Respiratory Rate 16 14 Blood Pressure 116/70 95/56 L Pulse Oximetry 96 Oxygen Delivery Method Room Air BMI result Body Mass Index 34.5 Labs 03/17/22 14:30 04/18/22 08:00 Imaging Radiology Impressions: ITS Impressions KUB X-Ray 03/18/22 16:35 IMPRESSION: Unremarkable examination. Medications Medications Current Medications Acetaminophen (Acetaminophen 325 Mg Tablet) 650 mg PO Q6H PRN PRN Reason: Headache/Pain Mild Scale (1-3) Al Hydroxide/Mg Hydroxide (Magnesium Hydrox/Alum Hydrox 30 Ml Oral.Susp) 30 ml PO Q6H PRN PRN Reason: Heartburn/Nausea Last Admin: 04/13/22 13:17 Dose: 30 ml Amlodipine Besylate (Amlodipine Besylate 5 Mg Tablet) 5 mg PO DAILY [place]; Protocol Last Admin: 04/24/22 09:16 Dose: 5 mg Fluoxetine HCl (Fluoxetine Hcl 20 Mg Capsule) 40 mg PO DAILY [place] Last Admin: 04/24/22 09:16 Dose: 40 mg Magnesium Hydroxide (Milk Of Magnesia 30 Ml Oral.Susp) 30 ml PO DAILY PRN PRN Reason: Constipation Metoprolol Succinate (Metoprolol Succinate Er 25 Mg Tab.Er.24h) 25 mg PO DAILY [place]; Protocol Last Admin: 04/24/22 09:16 Dose: 25 mg Olanzapine (Olanzapine 10 Mg Vial) 10 mg IM DAILY PRN PRN Reason: if refuses PO Last Admin: 04/01/22 11:32 Dose: 10 mg Olanzapine (Olanzapine Odt 10 Mg Tab.Rapdis) 20 mg TRANSLINGU BEDTIME [place] Last Admin: 04/23/22 20:08 Dose: 20 mg Polyethylene Glycol (Polyethylene Glycol 3350 17 Gm Powd.Pack) 17 gm PO DAILY PRN PRN Reason: constipation Sodium Biphosphate/Sodium Phosphate (Sodium Phosphate,Oxford-Dibasic 133 Ml Enema) 133 ml NH ONCE PRN PRN Reason: Constipation Trazodone HCl (Trazodone Hcl 50 Mg Tablet) 50 mg PO BEDTIME PRN PRN Reason: Insomnia Allergies Allergies Allergy/AdvReac Type Severity Reaction Status Date / Time No Known Allergies Allergy Verified 03/17/22 16:59 Assessment & Plan Assessment & Plan (1) Somatic delusion disorder: Status: Acute Code(s): F22 - Delusional disorders (2) MDD (major depressive disorder), severe: Status: Acute Code(s): F32.2 - Major depressive disorder, single episode, severe without psychotic features (3) MACIEL (generalized anxiety disorder): Status: Acute Code(s): F41.1 - Generalized anxiety disorder (4) Thoracic aortic aneurysm: Status: Acute Code(s): I71.20 - Thoracic aortic aneurysm, without rupture, unspecified Assessment and Plan: Known chronic thoracic aortic aneurysm without any acute symptoms. This is a chronic condition and there is no acute due to this lesion. It needs to be treated in the long run with medications such as metoprolol and other antihypertensive is a blood pressure remains elevated on metoprolol therapy to reduce she was stressed on the aorta. However is not having any acute symptoms at this point in time. Risk of rupture is very low in mild thoracic aortic aneurysm. His refusal of taking medication appears to be due to lack of understanding as well as his psychiatric condition that prevents him from processing the information. I would concentrate on treating his psychiatric condition so as to then eventually able to understand the need for taking medications. In the long run he will need to be followed as an outpatient by her graduate teaching assistant that he was following before. If he has intermittent hypertensive episode which again seems to be driven by acute anxiety, would consider treating the anxiety disorder. Can use metoprolol intramuscularly if needed for acute hypertension. Although patient is currently refusing taking his medication and focus should be try to make him understand to take his medications. There is no relation should between thoracic aortic aneurysm and QT prolongation. Use of psychoactive medication as needed can be used and I do not see any clear contraindication, his EKG done on admission shows normal QTC interval. Usual precautions for QT prolongation with avoidance of other QT prolonging drugs and maintaining electrolytes especially magnesium and potassium in normal range. Also can check QTC interval after initiating psychoactive medications at a known to prolong QT interval. Will follow up if need be. Plan HPI: pt is a 46 yo male with long hx of anxiety, thoracic aneurysm (dx Nov 2021) who presents for severe anxiety in face of difficulty eating/drinking since this past monday. Pt is accompanied by his mother.? -Pt reports that this past monday he stopped being able to eat or drink since it caused pain (pointing to area just below his xiphoid process) and wretching. -hx of severe anxiety -but no hx of psychosis; no hx lyn Patient's parents review timeline events leading up to this admission: Prior to this summer, patient was overall doing fine, worked, drove his car and for the past 2 years had no obvious problems.? Parents agree that patient is drinking likely kept his anxiety down to some degree -September:? sister got diagnosed with melanoma very upsetting for patient -September:? patient had painless hematuria, cystoscopy did have a finding but it was benign -November:? About 4 years ago patient was diagnosed with thoracic aneurysm however he has not followed up.? This past summer he was going to the emergency room multiple times for various problems and eventually agreed to thoracic CT which showed that aneurysm had increased to 4.3 mg -December:? Patient had a severely ingrown toenail which required surgical extraction -January: Patient diagnosed with macular degeneration is right eye -over these months patient has been eating less and less, saying that he had little appetite, did not like the smell of meat and has lost 20 or more lb -March: on Monday patient had bloody stool; 1st bowel movement in a week On Monday patient suddenly had chest pain and subsequent retching after drinking any fluid or eating anything On 02:30 patient went to [facility] ED, blood labs were drawn but no imaging or or labs; no fluid; long wait prompted patient to return home but he then came to [facility] where he got IV fluid HOSPITAL COURSE: .03/19 meeting w/ parents; pt anxious, lamenting that nothing can be done for him, just let him go...asking his parents to just leave him somewhere...Manager Contract asked where the side of the road? and he says yes. He denies any SI and laments i want to drink i want to eat...i just can't...i can't explain it.. but goes on to repeat that nothing can be done for him.? Patient refuses to believe that communications writer has seeing other patients who could not eat or drink, saying that this is a unique situation.? Manager Contract and parents together tried to encourage patient to take another Ativan under his tongue, which helped yesterday however he refused and kept saying it will not help... there is no point (after patient took Ativan under his tongue he was much more reasonable and able to engage with communications writer and agreed that perhaps he could be helped; at that time he agreed to KUB, barium swallow and thoracic CT-each intervention was explained to patient.? Patient got the KUB but was worried about the CT and eventually refused CT).? Patient refused an IV fluids for the same reason saying it is not going to help. Patient has a thoracic aneurysm and has not been taking his metoprolol or amlodipine saying he is unable to swallow.? Manager Contract discussed with patient who understands the need for these medications for his thoracic aneurysm however He refuses IV metoprolol saying it's not going to help...? Nothing is going to help....? You can not fix me.... -patient reported that he did make urine today, that it was brown and bubbly Manager Contract, Patient and mother and father discussed healthcare proxy and patient was initially ambivalent.? Manager Contract explained the details of healthcare proxy;? patient asked appropriate questions and expressed he understood and said he trusts his parents and that they are great. Patient signed healthcare proxy designating his mother and than his father as alternate. Discussed case with Hospitalist Dr. Hernandez, Dr. Law (GI) and graduate teaching assistant Dr. Serrano -Odalys swallow on hold to first r/o obstruction (per amrik Law) with KUB -KUB ordered (per Dr. Law): unremarkable -CT chest/angio/aortic ordered with IV contrast to r/o worsening thoracic aneurysm (per dr. Serrano-though considers this unlikely); pt refused -fleet enema ordered: refused 03/20 Patient remains delusional 03/21 Remains delusoinal. He was able to drink some, small amount of fluid; refused IV; again discussed w/ patient consequences of refusal but he maintains that it won't help anyway. 03/22 seems more depressed today and does not respond with anxious lament when approached with questions.? Remains delusional and refuses IV or any kind of medication or treatment.? He seems to agree to continue allowing lab work for monitoring kidney functions. -potassium mildly low today -BUN/creatinine WNL 03/23 patient remains with paranoid delusional thinking regarding his physical health.? He is trying to eat and drink and has been able to keep of food and fluids down.? He continues to refuse medication of any kind, including medications prescribed by graduate teaching assistant to prevent thoracic aneurysm from worsening.? Both patient's parents/healthcare proxy want him to take medications including metoprolol and amlodipine. -lytes: WNL -BUN creatinine: WNL -patient is taking in enough fluid that his kidney function remains intact and at this time patient appears stable without IV fluids -he refuses IV for fluids, refuses thoracic CT, refuses barium swallow, refuses Fleet enema, refuses occult stool test; intermittently refuses labs; refuses all medication including IM and SL); thus far he has allowed labwork to monitor for kidney function.? Patient's anxiety is chronic but has reached a psychotic level and patient does not have the capacity to make medical decisions for himself. Patient has a detailed history of seeking treatment for his ailments. However, now he is disorganized; he says he wants to eat and drink, does not want to ...wants to live, does not want to damage his kidneys... however he refuses nearly all?treatments/interventions. -communications writer has discussed case w/ hospitalist and PA 03/24 Patient remains delusional and despondent.? He says he is not good and continues to say I do not know what I am going to do I am just lost. Manager Contract discussed reasons to try medications to which patient says it makes sense however he follows up with I just do not know......i'm in bad shape... the only thing I know is that there are no solutions..? I am certain about... Manager Contract later met with patient again while his parents were visiting; patient's parents are urged him to try medications that communications writer is offering however patient adamantly refuses.? He tried to help communications writer and family understand by saying I do not want to , I just know there is not a chance.? It is the only thing left that I do know. ? Family discussion about healthcare proxy and involuntary commitment which patient understands. -Lytes: WNL -BUN/creatinine: WNL -Patient making urine -Patient drank about 2 cups of water by miday and drank and orange juice box; also ate a fruit cup and a tangerine -given labs and fluid intake, patient appears stable without IV fluids 03/25/2022 Patient remains anxious despondent to me a appears to be psychotically depressed somatically delusional and on able to take in information or explain his self cyst drug active and potentially life-threatening behavior if he markedly limits food and fluids based on no rational explanation.? Refusing medical workup.? Patient has upcoming court hearing for retention and treatment plan.? Try to develop therapeutic [place] encourage labs every other day monitor food and fluid intake may intermittently need IV fluids If patient remains acute may benefit from ECT treatment which would have a more acute impact potentially 03/29/22 pt Involuntarily committed with substituted judgment for medication.? Manager Contract discussed this with patient who said nothing is going to help 03/30 patient starting on Zyprexa; unable to believe he can take it p.o. or SL so given IM.? Patient very anxious, does not think anything will help 03/31 Remains delusional; Only Drinking when prompted to do so. Patient agrees there is no chest pain when eating or drinking and that doing so does not make him retch/vomit.? However he continues to assert that he can not drink even when he does so in front of communications writer.? Creatinine bumped up today.? Still within normal limits; Will check daily 04/01 remains delusional; no insight poor judgment; clearly mentally tortured by paranoid delusion. Needs constant prompting to drink; passively allows oral care. Case discussed with Dr. Pérez who agrees with current treatment plan -tachycardic; kidney function still within normal limits; mildly hypernatremic, likely from dehydration; will order CPK for tomorrow although no BRETT 04/02/22 remains with delusional sx. accepted PO meds today. Team is strongly encouraging food and fluids. Responds to consistent encouragement. Met with pt and mother, then parents after their visit. 04/03/22: Continue current plan. 04/04/22: Daily labs and monitoring. Consider possibly decreasing Lorazepam as it may be activating depressive sx. 04/05/22: Patient remains delusional, depressed and anxious; however he is eating and drinking adequately without prompting and lab work remains within normal limits. Patient is also little more communicative. Will start Prozac for anxiety/depression and OCD like symptoms; Prozac is also often used in combination with Zyprexa for treatment of depression. 04/06 continued somatic delusional worries; however continues to eat and drink adequately. Will give medications another day or so and then consider increasing doses 04/08 no change; continues to eat and drink adequately. Kidney function and lytes within normal limits however mildly increased ALT, possibly due to Prozac. Will increase, however will monitor. Choosing to increase Prozac since patient's illness is primarily anxiety though he also has a psychotic depression. Prozac has less side effect risks in general. That said may also eventually increase Z yprexa 04/09 remains psychotically depressed, with pronounced negative symptoms. Will likely increase Zyprexa 04/10 continue current regimen; eating and drinking, however not attending to any other ADLs. 04/11 seems that patient has plateaued; he is eating and drinking and taking medication and with prompting willing to walk the halls but otherwise remains depressed, disheveled, not attending to ADLs including brushing his teeth, bathing changing clothing or getting out of bed unless prompted. Remains with delusional belief that something is irrevocably wrong with his body and that he can't explain it... Not responsive to reality testing. He is overall a little less anxious which is helpful. Will likely increase Zyprexa for continued psychotic depression. Patient had asked what he needs to do for discharge response given his start doing some of the things he would normally do such is bathe, brushes teeth, changes clothes, talk with others... to Which patient responded I do not think I can do that -at this time there is no less secure place for patient to receive treatment. He is eating and drinking but only because food and drink are brought to him; he walks the ahn 2 to 3 times a day but only because he is repeatedly prompted by staff andknows that he will end up getting Lovenox injections daily if he does not; he takes his medications however only because there court ordered. Without around the clock, trained, supportive staff and court-ordered medication, patient would rapidly decompensate. Case discussed with Dr. Pérez and team; will continue with medication titration however ECT is discussed and remains an option. 04/13 no change in presentation; complained of mild chest pain which started last night resolved and then resumed today. Discussed with hospitalist and patient had workup with unremarkable EKG and negative troponins. Will increase Prozac to 30 mg. 04/14 no chest pain no N/V; remains despondent with psychotic depression; broached the topic of ECT is potential treatment to which patient said it will not help; communications writer reviewed note by hospitalist PA regarding yesterday's chest pain and communications writer agrees with conclusion and proposed treatment. Manager Contract asked patient what he thinks about all day as he lies in bed for most of it, hardly talking or interacting w/ anyone. Pt says nothing really and that his mind is mostly blank about during the day as he spends all of it lying in bed by himself not really talking to anyone, which makes OCD less likely 04/15 remains depressed; no insight; will increase Zyprexa to 20 and Prozac to [address] case [address] Pérez who agrees with this plan and is also starting to wonder if ECT might be necessary. It is possible try other antipsychotic however patient has had psychotic depression for nearly a month and a longer it persists the harder it can be to treat 04/16 continue current treatment plan; will change vitals back to Q b.i.d. Discussed case with nursing; met with patient; discussed case with pt's parents/HCP; reviewed vitals and WNL so will change back to BID; reviewed labs and will recheck CMP (K was mildly low); 04/17 some a mild improvement seen in patients effort as he is walking the halls without prompting, getting out of his room to get meal men use and agrees to try and sit in the milieu and watch TV. Discussed case with nursing who agrees that pt is mildly improved, little brighter affect; met with patient; reviewed vitals and WNL 04/18 some improvement 04/20 Patient remains depressed and with delusional worries.? He has improved some on medication and is now eating and drinking; however he still does not think he is able to shower or brush his teeth or changes clothes, things that he has normally done his entire life, demonstrating that both depression and d elusions remain significant.? Manager Contract has discussed the case with colleague, Dr. Pérez who agrees that it is premature to conclude that patient has turned a corner and will continue improving; remains very possible that he will plateau and then again decompensate. There is concern that the longer his delusion/depression lingers, the harder it can become to treat.? Thus, will give a little more time for current medication doses to see if they can be more effective, however it remains very possible the patient will require ECT. ?? 04/[address] cunningham- continue current tx. 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 Symptoms likley formally subdued with alcohol abuse Patient has hx of anxiety started in childhood.? However has functioned in the community with almost no history of psychiatric meds/therapy. No hx of any psychosis or lyn.? For past 2 years, he has worked run in the [employer], drives his car and has functioned successfully.? Starting this summer patient has undergone a series of stressful events (sisters cancer dx; patients own illness) triggering excessive worry and he's been going to the ED for psychosomatic complaints (along with organic ones); he has become unable to function, along worse, does not drive, not attending to ADLs. His parents agree that given patient's baseline anxiety, all these events combined into overwhelming anxiety and and tipped scales for him decompensate leading to this admission.? Patient is not manic; though he has paranoid, somatic delusions, he has no known history of psychotic illness. Pt's MACIEL/Somatic delusional worries (and possibly OCD) about his organic medical illness have become delusional making it difficult to ascertain what is going on and whether there is an organic component to his complaint that he cannot keep down food or water. Patient has no insight that he has delusional thoughts (he had 1 fleeting moment of insight after Ativan lowered anxiety). Although he can understand possible concerns/consequences of refusing treatment (such risks of worsening kidney function,which he does not want and so he eventually consents to getting blood draws to monitor) his paranoid delusional thinking makes him think all treatments are useless, won't help him and that his situation is hopeless. He is unaware the role his anxiety plays in confounding his thinking, insisting nothing will help, even when some of his complaints could be resolved with something as simple as an enema. UPDATE 04/14/22 Patient has been eating and drinking adequately without need for prompting. Started out as severe anxiety that had become psychotic and produced somatic delusional disorder; anxiety seems to have subsided and patient is more psychotically depressed with delusional somatic beliefs and negative symptoms anhedonia, anergia, avolition. Not attending to ADLs, lies in bed despondent all day; only walks the halls when prompted. Less likely OCD and pt does not c/o intrusive thoughts. UPDATE 04/17/22 still with somatic delusions however patient may be improving some and is putting in more effort towards behavioral activation. PLAN: Section 8b, involuntarily Civilly committed on 03/29.? q15min checks.? Signed HCP on 03/19/22 -COURT AFFIRMED HCP (04/08/2022): HCP's notified: Healthcare proxy invoked and now affirmed by the court. Healthcare proxies are 1st, patient's mother Le and then 2nd his father Chris. Hansen.?Depression/paranoid delusion/somatic disorder/anxiety?(hx severe anxiety since childhood; coped w/ Etoh abuse; sober 1 yr) -Patient is severely anxious with delusions that someting is very wrong with him that cannot be understood or treated; he has a history of seeking treatment for medical illness and if thinking clearly, would do so now. -He does not want to or harm his body, however he is convinced it Is hopeless.? -continue Zyprexa/Zydis 20mg q.h.s. for now to make sure not causing daytime sedation:?COURT ORDERED; IF REFUSES GIVE IM zyprexa (discussed risks/benefits of this medication and antipsychotics to HCP's) -DC Ativan 1 mg pt rather not and communications writer agrees to dc -Continue Prozac 40 mg daily for anxiety/depression and OCD like symptoms -patient agrees to walk the halls 3 times a day -ECT considered vs change to abilify, other med options B. Patient now eating and drinking adequately?(Minimal PO intake fluid/food: RESOLVED:?psychogenic origin) -now eating and drinking daily, even without prompting -making urine daily; Bun/Cr and Lytes remain WNL? -Ordered oral hygiene care t.i.d. with chlorhexidine mouthwash -if patient reverts back to refusal to drink, continue to evaluate kidney function. May need to consider IV fluids, to avert risk of severe and/or permanent kidney damage. -currently Patient is still making urine and labs reveal kidney function remains WNL -Will continue to assess dehydration however?without fluids patient will at some point risks severe and even permanent kidney damage. -communications writer has discussed case with both Psychiatric Director Dr. Pérez and several hospitalists (listed throughout) -will continue to monitor labs as pt allows C.?Thoracic aneurysm: Patient now taking metoprolol and amlodipine daily consulted with Second Officer Dr. Pennington and appreciate recommendations above -initially Pt refuses to allow CT to Assess thoracic aneurysm (last assessed Nov 2021 at 4.3cm; however while he initially c/o of ?sudden onset of substernal upper abdominal pain on eating/drinking, this complaint has resolved making this no longer a concern) Informed Consent: understands Reason for contiued inpatient stay Substantial Risk for: inability to function and rapid decompensation Time Spent With Patient Time: Total time managing care of this patient today ____ minutes.
[2022-04-24] MEDS: OLANZapine ODT 10 MG TAB.RAPDIS 20 MG TRANSLINGU (20:30)
[2022-04-25 08:55] VITALS: BP 133/78; PULSE 85; RESP 16; TEMP 36.4; O2SAT 95
[2022-04-25] MEDS: Metoprolol Succinate ER 25 MG TAB.ER.24H PO (09:06)
[2022-04-25] MEDS: FLUoxetine HCl 20 MG CAPSULE 40 MG PO (09:06)
[2022-04-25] MEDS: amLODIPine Besylate 5 MG TABLET PO (09:06)
--- NOTE | 2022-04-25 09:20 | HO.PSYCHPN ---
Subjective Subjective Date of Service: 04/25/22 Reason For Visit: psychosis, delusions of persecution, SI Interim History: met w/ patient; reviewed notes from covering provider; discussed with team pt reports he thinks he's a little better...i hope so. He remains anxious but says i always worry about stuff. pt spent considerable time this weekend in the day room, watching TV and talking some with others. still not showering w/out prompting but otherwise, attending to ADL's. Pt says he's a 5/10 with 10 his regular self, but says the 10 is before he was dx with an aneurysm, macular degeneration...Pt says he would like to discharge home soon; will orgnaize meeting w/ his parents Mental Status Exam Mental Status Exam Narrative: Pt is alert and oriented; behavior is more engaged, cooperative, calm; in casual attire, scruffy facial hair but adequate hygiene; mood is described as a little better and affect congruent, more expressive; not blunted; adequate eye contact; Speech is normal rate, volume and prosody and not pressured; some psychomotor retardation present but much less; thought process is goal directed, linear; Thought content is on being a little better; still with some worries; some somatic delusional thoughts but less intense; denies any SI/HI. There is no evidence of perceptual disturbance. Patients insight and judgment are significantly improved. Diagnostics Vital Signs (24Hr): Vital Signs - 24 hr 04/24/22 19:20 Temperature 97.8 F Pulse Rate 85 Respiratory Rate 14 Blood Pressure 95/56 L BMI result Body Mass Index 34.5 Labs 03/17/22 14:30 04/18/22 08:00 Imaging Radiology Impressions: ITS Impressions KUB X-Ray 03/18/22 16:35 IMPRESSION: Unremarkable examination. Medications Medications Current Medications Acetaminophen (Acetaminophen 325 Mg Tablet) 650 mg PO Q6H PRN PRN Reason: Headache/Pain Mild Scale (1-3) Al Hydroxide/Mg Hydroxide (Magnesium Hydrox/Alum Hydrox 30 Ml Oral.Susp) 30 ml PO Q6H PRN PRN Reason: Heartburn/Nausea Last Admin: 04/13/22 13:17 Dose: 30 ml Amlodipine Besylate (Amlodipine Besylate 5 Mg Tablet) 5 mg PO DAILY [facility]; Protocol Last Admin: 04/25/22 09:06 Dose: 5 mg Fluoxetine HCl (Fluoxetine Hcl 20 Mg Capsule) 40 mg PO DAILY [facility] Last Admin: 04/25/22 09:06 Dose: 40 mg Magnesium Hydroxide (Milk Of Magnesia 30 Ml Oral.Susp) 30 ml PO DAILY PRN PRN Reason: Constipation Metoprolol Succinate (Metoprolol Succinate Er 25 Mg Tab.Er.24h) 25 mg PO DAILY [facility]; Protocol Last Admin: 04/25/22 09:06 Dose: 25 mg Olanzapine (Olanzapine 10 Mg Vial) 10 mg IM DAILY PRN PRN Reason: if refuses PO Last Admin: 04/01/22 11:32 Dose: 10 mg Olanzapine (Olanzapine Odt 10 Mg Tab.Rapdis) 20 mg TRANSLINGU BEDTIME [facility] Last Admin: 04/24/22 20:30 Dose: 20 mg Polyethylene Glycol (Polyethylene Glycol 3350 17 Gm Powd.Pack) 17 gm PO DAILY PRN PRN Reason: constipation Sodium Biphosphate/Sodium Phosphate (Sodium Phosphate,[place]-Dibasic 133 Ml Enema) 133 ml CA ONCE PRN PRN Reason: Constipation Trazodone HCl (Trazodone Hcl 50 Mg Tablet) 50 mg PO BEDTIME PRN PRN Reason: Insomnia Allergies Allergies Allergy/AdvReac Type Severity Reaction Status Date / Time No Known Allergies Allergy Verified 03/17/22 16:59 Assessment & Plan Assessment & Plan (1) Somatic delusion disorder: Status: Acute Code(s): F22 - Delusional disorders (2) MDD (major depressive disorder), severe: Status: Acute Code(s): F32.2 - Major depressive disorder, single episode, severe without psychotic features (3) MACIEL (generalized anxiety disorder): Status: Acute Code(s): F41.1 - Generalized anxiety disorder (4) Thoracic aortic aneurysm: Status: Acute Code(s): I71.20 - Thoracic aortic aneurysm, without rupture, unspecified Assessment and Plan: Known chronic thoracic aortic aneurysm without any acute symptoms. This is a chronic condition and there is no acute due to this lesion. It needs to be treated in the long run with medications such as metoprolol and other antihypertensive is a blood pressure remains elevated on metoprolol therapy to reduce she was stressed on the aorta. However is not having any acute symptoms at this point in time. Risk of rupture is very low in mild thoracic aortic aneurysm. His refusal of taking medication appears to be due to lack of understanding as well as his psychiatric condition that prevents him from processing the information. I would concentrate on treating his psychiatric condition so as to then eventually able to understand the need for taking medications. In the long run he will need to be followed as an outpatient by her executive coordinator that he was following before. If he has intermittent hypertensive episode which again seems to be driven by acute anxiety, would consider treating the anxiety disorder. Can use metoprolol intramuscularly if needed for acute hypertension. Although patient is currently refusing taking his medication and focus should be try to make him understand to take his medications. There is no relation should between thoracic aortic aneurysm and QT prolongation. Use of psychoactive medication as needed can be used and I do not see any clear contraindication, his EKG done on admission shows normal QTC interval. Usual precautions for QT prolongation with avoidance of other QT prolonging drugs and maintaining electrolytes especially magnesium and potassium in normal range. Also can check QTC interval after initiating psychoactive medications at a known to prolong QT interval. Will follow up if need be. Plan HPI: pt is a 46 yo male with long hx of anxiety, thoracic aneurysm (dx Nov 2021) who presents for severe anxiety in face of difficulty eating/drinking since this past monday. Pt is accompanied by his mother.? -Pt reports that this past monday he stopped being able to eat or drink since it caused pain (pointing to area just below his xiphoid process) and wretching. -hx of severe anxiety -but no hx of psychosis; no hx lyn Patient's parents review timeline events leading up to this admission: Prior to this summer, patient was overall doing fine, worked, drove his car and for the past 2 years had no obvious problems.? Parents agree that patient is drinking likely kept his anxiety down to some degree -September:? sister got diagnosed with melanoma very upsetting for patient -September:? patient had painless hematuria, cystoscopy did have a finding but it was benign -November:? About 4 years ago patient was diagnosed with thoracic aneurysm however he has not followed up.? This past summer he was going to the emergency room multiple times for various problems and eventually agreed to thoracic CT which showed that aneurysm had increased to 4.3 mg -December:? Patient had a severely ingrown toenail which required surgical extraction -January: Patient diagnosed with macular degeneration is right eye -over these months patient has been eating less and less, saying that he had little appetite, did not like the smell of meat and has lost 20 or more lb -March: on Monday patient had bloody stool; 1st bowel movement in a week On Monday patient suddenly had chest pain and subsequent retching after drinking any fluid or eating anything On 02:30 patient went to [facility] ED, blood labs were drawn but no imaging or or labs; no fluid; long wait prompted patient to return home but he then came to [place] ED where he got IV fluid HOSPITAL COURSE: .03/19 meeting w/ parents; pt anxious, lamenting that nothing can be done for him, just let him go...asking his parents to just leave him somewhere...Chain Forming Machine Operator asked where the side of the road? and he says yes. He denies any SI and laments i want to drink i want to eat...i just can't...i can't explain it.. but goes on to repeat that nothing can be done for him.? Patient refuses to believe that health technical writer has seeing other patients who could not eat or drink, saying that this is a unique situation.? Chain Forming Machine Operator and parents together tried to encourage patient to take another Ativan under his tongue, which helped yesterday however he refused and kept saying it will not help... there is no point (after patient took Ativan under his tongue he was much more reasonable and able to engage with health technical writer and agreed that perhaps he could be helped; at that time he agreed to KUB, barium swallow and thoracic CT-each intervention was explained to patient.? Patient got the KUB but was worried about the CT and eventually refused CT).? Patient refused an IV fluids for the same reason saying it is not going to help. Patient has a thoracic aneurysm and has not been taking his metoprolol or amlodipine saying he is unable to swallow.? Chain Forming Machine Operator discussed with patient who understands the need for these medications for his thoracic aneurysm however He refuses IV metoprolol saying it's not going to help...? Nothing is going to help....? You can not fix me.... -patient reported that he did make urine today, that it was brown and bubbly Chain Forming Machine Operator, Patient and mother and father discussed healthcare proxy and patient was initially ambivalent.? Chain Forming Machine Operator explained the details of healthcare proxy;? patient asked appropriate questions and expressed he understood and said he trusts his parents and that they are great. Patient signed healthcare proxy designating his mother and than his father as alternate. Discussed case with Hospitalist Dr. Hernandez, Dr. Law (GI) and executive coordinator Dr. Serrano -Barrium swallow on hold to first r/o obstruction (per amrik Law) with KUB -KUB ordered (per Dr. Law): unremarkable -CT chest/angio/aortic ordered with IV contrast to r/o worsening thoracic aneurysm (per dr. Serrano-though considers this unlikely); pt refused -fleet enema ordered: refused 03/20 Patient remains delusional 03/21 Remains delusoinal. He was able to drink some, small amount of fluid; refused IV; again discussed w/ patient consequences of refusal but he maintains that it won't help anyway. 03/22 seems more depressed today and does not respond with anxious lament when approached with questions.? Remains delusional and refuses IV or any kind of medication or treatment.? He seems to agree to continue allowing lab work for monitoring kidney functions. -potassium mildly low today -BUN/creatinine WNL 03/23 patient remains with paranoid delusional thinking regarding his physical health.? He is trying to eat and drink and has been able to keep of food and fluids down.? He continues to refuse medication of any kind, including medications prescribed by executive coordinator to prevent thoracic aneurysm from worsening.? Both patient's parents/healthcare proxy want him to take medications including metoprolol and amlodipine. -lytes: WNL -BUN creatinine: WNL -patient is taking in enough fluid that his kidney function remains intact and at this time patient appears stable without IV fluids -he refuses IV for fluids, refuses thoracic CT, refuses barium swallow, refuses Fleet enema, refuses occult stool test; intermittently refuses labs; refuses all medication including IM and SL); thus far he has allowed labwork to monitor for kidney function.? Patient's anxiety is chronic but has reached a psychotic level and patient does not have the capacity to make medical decisions for himself. Patient has a detailed history of seeking treatment for his ailments. However, now he is disorganized; he says he wants to eat and drink, does not want to ...wants to live, does not want to damage his kidneys... however he refuses nearly all?treatments/interventions. -health technical writer has discussed case w/ hospitalist and TRESSA 03/24 Patient remains delusional and despondent.? He says he is not good and continues to say I do not know what I am going to do I am just lost. Chain Forming Machine Operator discussed reasons to try medications to which patient says it makes sense however he follows up with I just do not know......i'm in bad shape... the only thing I know is that there are no solutions..? I am certain about... Chain Forming Machine Operator later met with patient again while his parents were visiting; patient's parents are urged him to try medications that health technical writer is offering however patient adamantly refuses.? He tried to help health technical writer and family understand by saying I do not want to , I just know there is not a chance.? It is the only thing left that I do know. ? Family discussion about healthcare proxy and involuntary commitment which patient understands. -Lytes: WNL -BUN/creatinine: WNL -Patient making urine -Patient drank about 2 cups of water by miday and drank and orange juice box; also ate a fruit cup and a tangerine -given labs and fluid intake, patient appears stable without IV fluids 03/25/2022 Patient remains anxious despondent to me a appears to be psychotically depressed somatically delusional and on able to take in information or explain his self cyst drug active and potentially life-threatening behavior if he markedly limits food and fluids based on no rational explanation.? Refusing medical workup.? Patient has upcoming court hearing for retention and treatment plan.? Try to develop therapeutic Isabela encourage labs every other day monitor food and fluid intake may intermittently need IV fluids If patient remains acute may benefit from ECT treatment which would have a more acute impact potentially 03/29/22 pt Involuntarily committed with substituted judgment for medication.? Chain Forming Machine Operator discussed this with patient who said nothing is going to help 03/30 patient starting on Zyprexa; unable to believe he can take it p.o. or SL so given IM.? Patient very anxious, does not think anything will help 03/31 Remains delusional; Only Drinking when prompted to do so. Patient agrees there is no chest pain when eating or drinking and that doing so does not make him retch/vomit.? However he continues to assert that he can not drink even when he does so in front of health technical writer.? Creatinine bumped up today.? Still within normal limits; Will check daily 04/01 remains delusional; no insight poor judgment; clearly mentally tortured by paranoid delusion. Needs constant prompting to drink; passively allows oral care. Case discussed with Dr. Pérez who agrees with current treatment plan -tachycardic; kidney function still within normal limits; mildly hypernatremic, likely from dehydration; will order CPK for tomorrow although no BRETT 04/02/22 remains with delusional sx. accepted PO meds today. Team is strongly encouraging food and fluids. Responds to consistent encouragement. Met with pt and mother, then parents after their visit. 04/03/22: Continue current plan. 04/04/22: Daily labs and monitoring. Consider possibly decreasing Lorazepam as it may be activating depressive sx. 04/05/22: Patient remains delusional, depressed and anxious; however he is eating and drinking adequately without prompting and lab work remains within normal limits. Patient is also little more communicative. Will start Prozac for anxiety/depression and OCD like symptoms; Prozac is also often used in combination with Zyprexa for treatment of depression. 04/06 continued somatic delusional worries; however continues to eat and drink adequately. Will give medications another day or so and then consider increasing doses 04/08 no change; continues to eat and drink adequately. Kidney function and lytes within normal limits however mildly increased ALT, possibly due to Prozac. Will increase, however will monitor. Choosing to increase Prozac since patient's illness is primarily anxiety though he also has a psychotic depression. Prozac has less side effect risks in general. That said may also eventually increase Zyprexa 04/09 remains psychotically depressed, with pronounced negative symptoms. Will likely increase Zyprexa 04/10 continue current regimen; eating and drinking, however not attending to any other ADLs. 04/11 seems that patient has plateaued; he is eating and drinking and taking medication and with prompting willing to walk the halls but otherwise remains depressed, disheveled, not attending to ADLs including brushing his teeth, bathing changing clothing or getting out of bed unless prompted. Remains with delusional belief that something is irrevocably wrong with his body and that he can't explain it... Not responsive to reality testing. He is overall a little less anxious which is helpful. Will likely increase Zyprexa for continued psychotic depression. Patient had asked what he needs to do for discharge response given his start doing some of the things he would normally do such is bathe, brushes teeth, changes clothes, talk with others... to Which patient responded I do not think I can do that -at this time there is no less secure place for patient to receive treatment. He is eating and drinking but only because food and drink are brought to him; he walks the ahn 2 to 3 times a day but only because he is repeatedly prompted by staff andknows that he will end up getting Lovenox injections daily if he does not; he takes his medications however only because there court ordered. Without around the clock, trained, supportive staff and court-ordered medication, patient would rapidly decompensate. Case discussed with Dr. Pérez and team; will continue with medication titration however ECT is discussed and remains an option. 04/13 no change in presentation; complained of mild chest pain which started last night resolved and then resumed today. Discussed with hospitalist and patient had workup with unremarkable EKG and negative troponins. Will increase Prozac to 30 mg. 04/14 no chest pain no N/V; remains despondent with psychotic depression; broached the topic of ECT is potential treatment to which patient said it will not help; health technical writer reviewed note by hospitalist TRESSA regarding yesterday's chest pain and health technical writer agrees with conclusion and proposed treatment. Chain Forming Machine Operator asked patient what he thinks about all day as he lies in bed for most of it, hardly talking or interacting w/ anyone. Pt says nothing really and that his mind is mostly blank about during the day as he spends all of it lying in bed by himself not really talking to anyone, which makes OCD less likely 04/15 remains depressed; no insight; will increase Zyprexa to 20 and Prozac to [address] case [address] Pérez who agrees with this plan and is also starting to wonder if ECT might be necessary. It is possible try other antipsychotic however patient has had psychotic depression for nearly a month and a longer it persists the harder it can be to treat 04/16 continue current treatment plan; will change vitals back to Q b.i.d. Discussed case with nursing; met with patient; discussed case with pt's parents/HCP; reviewed vitals and WNL so will change back to BID; reviewed labs and will recheck CMP (K was mildly low); 04/17 some a mild improvement seen in patients effort as he is walking the halls without prompting, getting out of his room to get meal men use and agrees to try and sit in the milieu and watch TV. Discussed case with nursing who agrees that pt is mildly improved, little brighter affect; met with patient; reviewed vitals and WNL 04/18 some improvement 04/20 Patient remains depressed and with delusional worries.? He has improved some on medication and is now eating and drinking; however he still does not think he is able to shower or brush his teeth or changes clothes, things that he has normally done his entire life, demonstrating that both depression and delusions remain significant.? Chain Forming Machine Operator has discussed the case with colleague, Dr. Pérez who agrees that it is premature to conclude that patient has turned a corner and will continue improving; remains very possible that he will plateau and then again decompensate. There is concern that the longer his delusion/depression lingers, the harder it can become to treat.? Thus, will give a little more time for current medication doses to see if they can be more effective, however it remains very possible the patient will require ECT. ?? 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 Symptoms likley formally subdued with alcohol abuse Patient has hx of anxiety started in childhood.? However has functioned in the community with almost no history of psychiatric meds/therapy. No hx of any psychosis or lyn.? 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 Starting this summer patient has undergone a series of stressful events (sisters cancer dx; patients own illness) triggering excessive worry and he's been going to the ED for psychosomatic complaints (along with organic ones); he has become unable to function, along worse, does not drive, not attending to ADLs. His parents agree that given patient's baseline anxiety, all these events combined into overwhelming anxiety and and tipped scales for him decompensate leading to this admission.? Patient is not manic; though he has paranoid, somatic delusions, he has no known history of psychotic illness. Pt's MACIEL/Somatic delusional worries (and possibly OCD) about his organic medical illness have become delusional making it difficult to ascertain what is going on and whether there is an organic component to his complaint that he cannot keep down food or water. Patient has no insight that he has delusional thoughts (he had 1 fleeting moment of insight after Ativan lowered anxiety). Although he can understand possible concerns/consequences of refusing treatment (such risks of worsening kidney function,which he does not want and so he eventually consents to getting blood draws to monitor) his paranoid delusional thinking makes him think all treatments are useless, won't help him and that his situation is hopeless. He is unaware the role his anxiety plays in confounding his thinking, insisting nothing will help, even when some of his complaints could be resolved with something as simple as an enema. UPDATE 04/14/22 Patient has been eating and drinking adequately without need for prompting. Started out as severe anxiety that had become psychotic and produced somatic delusional disorder; anxiety seems to have subsided and patient is more psychotically depressed with delusional somatic beliefs and negative symptoms anhedonia, anergia, avolition. Not attending to ADLs, lies in bed despondent all day; only walks the halls when prompted. Less likely OCD and pt does not c/o intrusive thoughts. UPDATE 04/17/22 still with somatic delusions however patient may be improving some and is putting in more effort towards behavioral activation. UPDATE 04/25/22; much better; still w/ depression and worries but attending to mostl adl's; somatic delusions signficantly reduced PLAN: Section 8b, involuntarily Civilly committed on 03/29.? q15min checks.? Signed HCP on 03/19/22 -COURT AFFIRMED HCP (04/08/2022): HCP's notified: Healthcare proxy invoked and now affirmed by the court. Healthcare proxies are 1st, patient's mother Le and then 2nd his father Chris. Hansen.?Depression/paranoid delusion/somatic disorder/anxiety?(hx severe anxiety since childhood; coped w/ Etoh abuse; sober 1 yr) -Patient is severely anxious with delusions that someting is very wrong with him that cannot be understood or treated; he has a history of seeking treatment for medical illness and if thinking clearly, would do so now. -He does not want to or harm his body, however he is convinced it Is hopeless.? -continue Zyprexa/Zydis 20mg q.h.s. for now to make sure not causing daytime sedation:?COURT ORDERED; IF REFUSES GIVE IM zyprexa (discussed risks/benefits of this medication and antipsychotics to HCP's) -DC Ativan 1 mg pt rather not and health technical writer agrees to dc -Continue Prozac 40 mg daily for anxiety/depression and OCD like symptoms -patient agrees to walk the halls 3 times a day -ECT considered vs change to abilify, other med options B. Patient now eating and drinking adequately?(Minimal PO intake fluid/food: RESOLVED:?psychogenic origin) -now eating and drinking daily, even without prompting -making urine daily; Bun/Cr and Lytes remain WNL? -Ordered oral hygiene care t.i.d. with chlorhexidine mouthwash -if patient reverts back to refusal to drink, continue to evaluate kidney function. May need to consider IV fluids, to avert risk of severe and/or permanent kidney damage. -currently Patient is still making urine and labs reveal kidney function remains WNL -Will continue to assess dehydration however?without fluids patient will at some point risks severe and even permanent kidney damage. -health technical writer has discussed case with both Psychiatric Director Dr. Pérez and several hospitalists (listed throughout) -will continue to monitor labs as pt allows C.?Thoracic aneurysm: Patient now taking metoprolol and amlodipine daily consulted with Billet Inspector Dr. Pennington and appreciate recommendations above -initially Pt refuses to allow CT to Assess thoracic aneurysm (last assessed Nov 2021 at 4.3cm; however while he initially c/o of ?sudden onset of substernal upper abdominal pain on eating/drinking, this complaint has resolved making this no longer a concern) Patient educated on: diagnosis, medication risk/benefits and therapeutic strategies Informed Consent: understands and further education needed Reason for contiued inpatient stay Substantial Risk for: stable for discharge Time Spent With Patient Time: Total time managing care of this patient today ____ minutes.
[2022-04-25] MEDS: OLANZapine ODT 10 MG TAB.RAPDIS 20 MG TRANSLINGU (20:14)
[2022-04-25 20:20] VITALS: BP 117/70; PULSE 89; TEMP 36.3; O2SAT 97
[2022-04-26 08:42] VITALS: BP 127/78; PULSE 88; RESP 16; TEMP 36.6; O2SAT 95
[2022-04-26] MEDS: Metoprolol Succinate ER 25 MG TAB.ER.24H PO (08:45)
[2022-04-26] MEDS: FLUoxetine HCl 20 MG CAPSULE 40 MG PO (08:45)
[2022-04-26] MEDS: amLODIPine Besylate 5 MG TABLET PO (08:45)
[2022-04-26 18:47] VITALS: BP 109/69; PULSE 83; RESP 16; TEMP 37; O2SAT 97
[2022-04-26] MEDS: OLANZapine ODT 10 MG TAB.RAPDIS 20 MG TRANSLINGU (20:23)
[2022-04-26 22:00] VITALS: BP 128/68; PULSE 75; RESP 16; TEMP 36; O2SAT 97
[2022-04-27 08:33] VITALS: BP 109/75; PULSE 80; RESP 18; TEMP 36.5; O2SAT 96
[2022-04-27] MEDS: Metoprolol Succinate ER 25 MG TAB.ER.24H PO (08:35)
[2022-04-27] MEDS: amLODIPine Besylate 5 MG TABLET PO (08:35)
[2022-04-27] MEDS: FLUoxetine HCl 20 MG CAPSULE 40 MG PO (08:35)
--- NOTE | 2022-04-27 12:30 | P.PNPSI_ITS ---
Subjective Subjective Date of Service: 04/26/22 Reason For Visit: psychosis, delusions of persecution, SI Interim History: Late entry for patient seen on 04/26 Met with patient; discussed case with team; met with patient's parents who are his healthcare proxies and discussed case Patient reports he is overall feeling better even if only slightly. Still does not want to shower but says maybe he would feel more comfortable doing so at home. Patient would like to discharge home and he agrees to continue taking his medications and to seeing outpatient providers. Back Hand again discussed include creasing Prozac but patient prefers not to at this time. Back Hand also med discussed case with both of his parents who agree with this plan. Discussed option of ECT but all agreed that as patient has been doing better on medication, and could continue doing so, that preferable option is that he remain on medication at this time and have it adjusted as needed by outpatient provider. Also discussed that if patient were to remain only partially improved or declined that he could come back for ECT. Patient's family wanted to discuss this with patient as well but agreed this is a reasonable plan. Mental Status Exam Mental Status Exam Narrative: Pt is alert and oriented; behavior is more engaged, cooperative, calm; in casual attire, scruffy facial hair but adequate hygiene; mood is described as a little better and affect congruent, more expressive; not blunted; adequate eye cont act; Speech is normal rate, volume and prosody and not pressured; some psychomotor retardation present but much less; thought process is goal directed, linear; Thought content is on being a little better; still with some worries; some somatic delusional thoughts but less intense; denies any SI/HI. There is no evidence of perceptual disturbance. Patients insight and judgment are impaired but significantly improved. Diagnostics Vital Signs (24Hr): Vital Signs - 24 hr 04/26/22 18:47 04/26/22 22:00 04/27/22 08:33 Temperature 98.6 F 96.8 F 97.7 F Pulse Rate 83 75 80 Respiratory Rate 16 16 18 Blood Pressure 109/69 128/68 109/75 Pulse Oximetry 97 97 96 Oxygen Delivery Method Room Air Room Air Room Air BMI result Body Mass Index 34.5 Labs 03/17/22 14:30 04/18/22 08:00 Imaging Radiology Impressions: ITS Impressions KUB X-Ray 03/18/22 16:35 IMPRESSION: Unremarkable examination. Medications Medications Current Medications Acetaminophen (Acetaminophen 325 Mg Tablet) 650 mg PO Q6H PRN PRN Reason: Headache/Pain Mild Scale (1-3) Al Hydroxide/Mg Hydroxide (Magnesium Hydrox/Alum Hydrox 30 Ml Oral.Susp) 30 ml PO Q6H PRN PRN Reason: Heartburn/Nausea Last Admin: 04/13/22 13:17 Dose: 30 ml Amlodipine Besylate (Amlodipine Besylate 5 Mg Tablet) 5 mg PO DAILY [facility]; Protocol Last Admin: 04/27/22 08:35 Dose: 5 mg Fluoxetine HCl (Fluoxetine Hcl 20 Mg Capsule) 40 mg PO DAILY [facility] Last Admin: 04/27/22 08:35 Dose: 40 mg Magnesium Hydroxide (Milk Of Magnesia 30 Ml Oral.Susp) 30 ml PO DAILY PRN PRN Reason: Constipation Metoprolol Succinate (Metoprolol Succinate Er 25 Mg Tab.Er.24h) 25 mg PO DAILY [facility]; Protocol Last Admin: 04/27/22 08:35 Dose: 25 mg Olanzapine (Olanzapine 10 Mg Vial) 10 mg IM DAILY PRN PRN Reason: if refuses PO Last Admin: 04/01/22 11:32 Dose: 10 mg Olanzapine (Olanzapine Odt 10 Mg Tab.Rapdis) 20 mg TRANSLINGU BEDTIME [place] Last Admin: 04/26/22 20:23 Dose: 20 mg Polyethylene Glycol (Polyethylene Glycol 3350 17 Gm Powd.Pack) 17 gm PO DAILY PRN PRN Reason: constipation Sodium Biphosphate/Sodium Phosphate (Sodium Phosphate,[place]-Dibasic 133 Ml Enema) 133 ml TX ONCE PRN PRN Reason: Constipation Trazodone HCl (Trazodone Hcl 50 Mg Tablet) 50 mg PO BEDTIME PRN PRN Reason: Insomnia Allergies Allergies Allergy/AdvReac Type Severity Reaction Status Date / Time No Known Allergies Allergy Verified 03/17/22 16:59 Assessment & Plan Assessment & Plan (1) Somatic delusion disorder: Status: Acute Code(s): F22 - Delusional disorders (2) MDD (major depressive disorder), severe: Status: Acute Code(s): F32.2 - Major depressive disorder, single episode, severe without psychotic features (3) MACIEL (generalized anxiety disorder): Status: Acute Code(s): F41.1 - Generalized anxiety disorder (4) Thoracic aortic aneurysm: Status: Acute Code(s): I71.20 - Thoracic aortic aneurysm, without rupture, unspecified Assessment and Plan: Known chronic thoracic aortic aneurysm without any acute symptoms. This is a chronic condition and there is no acute due to this lesion. It needs to be treated in the long run with medications such as metoprolol and other antihypertensive is a blood pressure remains elevated on metoprolol therapy to reduce she was stressed on the aorta. However is not having any acute symptoms at this point in time. Risk of rupture is very low in mild thoracic aortic aneurysm. His refusal of taking medication appears to be due to lack of understanding as well as his psychiatric condition that prevents him from processing the information. I would concentrate on treating his psychiatric condition so as to then eventually able to understand the need for taking medications. In the long run he will need to be followed as an outpatient by her tumbling machine operator that he was following before. If he has intermittent hypertensive episode which again seems to be driven by acute anxiety, would consider treating the anxiety disorder. Can use metoprolol intramuscularly if needed for acute hypertension. Although patient is currently refusing taking his medication and focus should be try to make him understand to take his medications. There is no relation should between thoracic aortic aneurysm and QT prolongation. Use of psychoactive medication as needed can be used and I do not see any clear contraindication, his EKG done on admission shows normal QTC interval. Usual precautions for QT prolongation with avoidance of other QT prolonging drugs and maintaining electrolytes especially magnesium and potassium in normal range. Also can check QTC interval after initiating psychoactive medications at a known to prolong QT interval. Will follow up if need be. Plan HPI: pt is a 46 yo male with long hx of anxiety, thoracic aneurysm (dx Nov 2021) who presents for severe anxiety in face of difficulty eating/drinking since this past monday. Pt is accompanied by his mother.? -Pt reports that this past monday he stopped being able to eat or drink since it caused pain (pointing to area just below his xiphoid process) and wretching. -hx of severe anxiety -but no hx of psychosis; no hx lyn Patient's parents review timeline events leading up to this admission: Prior to this summer, patient was overall doing fine, worked, drove his car and for the past 2 years had no obvious problems.? Parents agree that patient is drinking likely kept his anxiety down to some degree -September:? sister got diagnosed with melanoma very upsetting for patient -September:? patient had painless hematuria, cystoscopy did have a finding but it was benign -November:? About 4 years ago patient was diagnosed with thoracic aneurysm however he has not followed up.? This past summer he was going to the emergency room multiple times for various problems and eventually agreed to thoracic CT which showed that aneurysm had increased to 4.3 mg -December:? Patient had a severely ingrown toenail which required surgical extraction -January: Patient diagnosed with macular degeneration is right eye -over these months patient has been eating less and less, saying that he had little appetite, did not like the smell of meat and has lost 20 or more lb -March: on Monday patient had bloody stool; 1st bowel movement in a week On Monday patient suddenly had chest pain and subsequent retching after drinking any fluid or eating anything On 02:30 patient went to [facility] ED, blood labs were drawn but no imaging or or labs; no fluid; long wait prompted patient to return home but he then came to [facility] where he got IV fluid HOSPITAL COURSE: .03/19 meeting w/ parents; pt anxious, lamenting that nothing can be done for him, just let him go...asking his parents to just leave him somewhere...Back Hand asked where the side of the road? and he says yes. He denies any SI and laments i want to drink i want to eat...i just can't...i can't explain it.. but goes on to repeat that nothing can be done for him.? Patient refuses to believe that content writer has seeing other patients who could not eat or drink, saying that this is a unique situation.? Back Hand and parents together tried to encourage patient to take another Ativan under his tongue, which helped yesterday however he refused and kept saying it will not help... there is no point (after patient took Ativan under his tongue he was much more reasonable and able to engage with content writer and agreed that perhaps he could be helped; at that time he agreed to KUB, barium swallow and thoracic CT-each intervention was explained to patient.? Patient got the KUB but was worried about the CT and eventually refused CT).? Patient refused an IV fluids for the same reason saying it is not going to help. Patient has a thoracic aneurysm and has not been taking his metoprolol or aml odipine saying he is unable to swallow.? Back Hand discussed with patient who understands the need for these medications for his thoracic aneurysm however He refuses IV metoprolol saying it's not going to help...? Nothing is going to help....? You can not fix me.... -patient reported that he did make urine today, that it was brown and bubbly Back Hand, Patient and mother and father discussed healthcare proxy and patient was initially ambivalent.? Back Hand explained the details of healthcare proxy;? daniele rodriguez asked appropriate questions and expressed he understood and said he trusts his parents and that they are great. Patient signed healthcare proxy designating his mother and than his father as alternate. Discussed case with Hospitalist Dr. Hernandez, Dr. Law (GI) and tumbling machine operator Dr. Serrano -Barrium swallow on hold to first r/o obstruction (per amrik Law) with KUB -KUB ordered (per Dr. Law): unremarkable -CT chest/angio/aortic ordered with IV contrast to r/o worsening thoracic aneu rysm (per dr. Serrano-though considers this unlikely); pt refused -fleet enema ordered: refused 03/20 Patient remains delusional 03/21 Remains delusoinal. He was able to drink some, small amount of fluid; refused IV; again discussed w/ patient consequences of refusal but he maintains that it won't help anyway. 03/22 seems more depressed today and does not respond with anxious lament when approached with questions.? Remains delusional and refuses IV or any kind of medication or treatment.? He seems to agree to continue allowing lab work for monitoring kidney functions. -potassium mildly low today -BUN/creatinine WNL 03/23 patient remains with paranoid delusional thinking regarding his physical health.? He is trying to eat and drink and has been able to keep of food and fluids down.? He continues to refuse medication of any kind, including medications prescribed by tumbling machine operator to prevent thoracic aneurysm from worsening.? Both patient's parents/healthcare proxy want him to take medications including metoprolol and amlodipine. -lytes: WNL -BUN creatinine: WNL -patient is taking in enough fluid that his kidney function remains intact and at this time patient appears stable without IV fluids -he refuses IV for fluids, refuses thoracic CT, refuses barium swallow, refuses Fleet enema, refuses occult stool test; intermittently refuses labs; refuses all medication including IM and SL); thus far he has allowed labwork to monitor for kidney function.? Patient's anxiety is chronic but has reached a psychotic level and patient does not have the capacity to make medical decisions for himself. Patient has a detailed history of seeking treatment for his ailments. However, now he is disorganized; he says he wants to eat and drink, does not want to ...wants to live, does not want to damage his kidneys... however he refuses nearly all?treatments/interventions. -content writer has discussed case w/ hospitalist and DANIELE 03/24 Patient remains delusional and despondent.? He says he is not good and continues to say I do not know what I am going to do I am just lost. Back Hand discussed reasons to try medications to which patient says it makes sense however he follows up with I just do not know......i'm in bad shape... the only thing I know is that there are no solutions..? I am certain about... Back Hand later met with patient again while his parents were visiting; patient's parents are urged him to try medications that content writer is offering however patient adamantly refuses.? He tried to help content writer and family understand by saying I do not want to , I just know there is not a chance.? It is the only thing left that I do know. ? Family discussion about healthcare proxy and involuntary commitment which patient understands. -Lytes: WNL -BUN/creatinine: WNL -Patient making urine -Patient drank about 2 cups of water by miday and drank and orange juice box; also ate a fruit cup and a tangerine -given labs and fluid intake, patient appears stable without IV fluids 03/25/2022 Patient remains anxious despondent to me a appears to be psychotically depressed somatically delusional and on able to take in information or explain his self cyst drug active and potentially life-threatening behavior if he markedly limits food and fluids based on no rational explanation.? Refusing medical workup.? Patient has upcoming court hearing for retention and treatment plan.? Try to develop therapeutic [place] encourage labs every other day monitor food and fluid intake may intermittently need IV fluids If patient remains acute may benefit from ECT treatment which would have a more acute impact potentially 03/29/22 pt Involuntarily committed with substituted judgment for medication.? Back Hand discussed this with patient who said nothing is going to help 03/30 patient starting on Zyprexa; unable to believe he can take it p.o. or SL so given IM.? Patient very anxious, does not think anything will help 03/31 Remains delusional; Only Drinking when prompted to do so. Patient agrees there is no chest pain when eating or drinking and that doing so does not make him retch/vomit.? However he continues to assert that he can not drink even when he does so in front of content writer.? Creatinine bumped up today.? Still within normal limits; Will check daily 04/01 remains delusional; no insight poor judgment; clearly mentally tortured by paranoid delusion. Needs constant prompting to drink; passively allows oral care. Case discussed with Dr. Pérez who agrees with current treatment plan -tachycardic; kidney function still within normal limits; mildly hypernatremic, likely from dehydration; will order CPK for tomorrow although no BRETT 04/02/22 remains with delusional sx. accepted PO meds today. Team is strongly encouraging food and fluids. Responds to consistent encouragement. Met with pt and mother, then parents after their visit. 04/03/22: Continue current plan. 04/04/22: Daily labs and monitoring. Consider possibly decreasing Lorazepam as it may be activating depressive sx. 04/05/22: Patient remains delusional, depressed and anxious; however he is eating and drinking adequately without prompting and lab work remains within normal limits. Patient is also little more communicative. Will start Prozac for anxiety/depression and OCD like symptoms; Prozac is also often used in combination with Zyprexa for treatment of depression. 04/06 continued somatic delusional worries; however continues to eat and drink adequately. Will give medications another day or so and then consider increasing doses 04/08 no change; continues to eat and drink adequately. Kidney function and lytes within normal limits however mildly increased ALT, possibly due to Prozac. Will increase, however will monitor. Choosing to increase Prozac since patient's illness is primarily anxiety though he also has a psychotic depression. Prozac has less side effect risks in general. That said may also eventually increase Zyprexa 04/09 remains psychotically depressed, with pronounced negative symptoms. Will likely increase Zyprexa 04/10 continue current regimen; eating and drinking, however not attending to any other ADLs. 04/11 seems that patient has plateaued; he is eating and drinking and taking me dication and with prompting willing to walk the halls but otherwise remains depressed, disheveled, not attending to ADLs including brushing his teeth, bathing changing clothing or getting out of bed unless prompted. Remains with delusional belief that something is irrevocably wrong with his body and that he can't explain it... Not responsive to reality testing. He is overall a little less anxious which is helpful. Will likely increase Zyprexa for continued psychotic depression. Patient had asked what he needs to do for discharge response given his start doing some of the things he would normally do such is bathe, brushes teeth, changes clothes, talk with others... to Which patient responded I do not think I can do that -at this time there is no less secure place for patient to receive treatment. He is eating and drinking but only because food and drink are brought to him; he walks the ahn 2 to 3 times a day but only because he is repeatedly prompted by staff andknows that he will end up getting Lovenox injections daily if he does not; he takes his medications however only because there court ordered. Without around the clock, trained, supportive staff and court-ordered medication, patient would rapidly decompensate. Case discussed with Dr. Pérez and team; will continue with medication titration however ECT is discussed and remains an option. 04/13 no change in presentation; complained of mild chest pain which started last night resolved and then resumed today. Discussed with hospitalist and patient had workup with unremarkable EKG and negative troponins. Will increase Prozac to 30 mg. 04/14 no chest pain no N/V; remains despondent with psychotic depression; broached the topic of ECT is potential treatment to which patient said it will not help; content writer reviewed note by hospitalist DANIELE regarding yesterday's chest pain and content writer agrees with conclusion and proposed treatment. Back Hand asked patient what he thinks about all day as he lies in bed for most of it, hardly talking or interacting w/ anyone. Pt says nothing really and that his mind is mostly blank about during the day as he spends all of it lying in bed by himself not really talking to anyone, which makes OCD less likely 04/15 remains depressed; no insight; will increase Zyprexa to 20 and Prozac to [address] case [address] Pérez who agrees with this plan and is also starting to wonder if ECT might be necessary. It is possible try other antipsychotic however patient has had psychotic depression for nearly a month and a longer it persists the harder it can be to treat 04/16 continue current treatment plan; will change vitals back to Q b.i.d. Discussed case with nursing; met with patient; discussed case with pt's parents/HCP; reviewed vitals and WNL so will change back to BID; reviewed labs and will recheck CMP (K was mildly low); 04/17 some a mild improvement seen in patients effort as he is walking the halls without prompting, getting out of his room to get meal men use and agrees to try and sit in the milieu and watch TV. Discussed case with nursing who agrees that pt is mildly improved, little brighter affect; met with patient; reviewed vitals and WNL 04/18 some improvement 04/20 Patient remains depressed and with delusional worries.? He has improved some on medication and is now eating and drinking; however he still does not think he is able to shower or brush his teeth or changes clothes, things that he has normally done his entire life, demonstrating that both depression and delusions remain significant.? Back Hand has discussed the case with colleague, Dr. Pérez who agrees that it is premature to conclude that patient has turned a corner and will continue improving; remains very possible that he will plateau and then again decompensate. There is concern that the longer his delusion/depression lingers, the harder it can become to treat.? Thus, will give a little more time for current medication doses to see if they can be more effective, however it remains very possible the patient will require ECT. ?? 04/25 pt improved; continue same meds 04/26 patient remains with improved insight; also able to get himself out of the room, attend ADLs other than showering. Would like discharge and agrees to continuing treatment as an outpatient. Discussed case with his parents who agree this is likely the best plan. Patient's mother thought he should remain with affirmed healthcare proxy in place. Discussed case further with social work team who agreed this is perhaps best for the time being as his improvement is new, limited and fragile and has yet to demonstrate it will remain long-term. 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 Symptoms likley formally subdued with alcohol abuse Patient has hx of anxiety started in childhood.? However has functioned in the community with almost no history of psychiatric meds/therapy. No hx of any psychosis or lyn.? 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 Starting this summer patient has undergone a series of stressful events (sisters cancer dx; patients own illness) triggering excessive worry and he's been going to the ED for psychosomatic complaints (along with organic ones); he has become unable to function, along worse, does not drive, not attending to ADLs. His parents agree that given patient's baseline anxiety, all these events combined into overwhelming anxiety and and tipped scales for him decompensate leading to this admission.? Patient is not manic; though he has paranoid, somatic delusions, he has no known history of psychotic illness. Pt's MACIEL/Somatic delusional worries (and possibly OCD) about his organic medical illness have become delusional making it difficult to ascertain what is going on and whether there is an organic component to his complaint that he cannot keep down food or water. Patient has no insight that he has delusional thoughts (he had 1 fleeting moment of insight after Ativan lowered anxiety). Although he can understand possible concerns/consequences of refusing treatment (such risks of worsening kidney function,which he does not want and so he eventually consents to getting blood draws to monitor) his paranoid delusional thinking makes him think all treatments are useless, won't help him and that his situation is hopeless. He is unaware the role his anxiety plays in confounding his thinking, insisting nothing will help, even when some of his complaints could be resolved with something as simple as an enema. UPDATE 04/14/22 Patient has been eating and drinking adequately without need for prompting. Started out as severe anxiety that had become psychotic and produced somatic delusional disorder; anxiety seems to have subsided and patient is more psychotically depressed with delusional somatic beliefs and negative symptoms anhedonia, anergia, avolition. Not attending to ADLs, lies in bed despondent all day; only walks the halls when prompted. Less likely OCD and pt does not c/o intrusive thoughts. UPDATE 04/17/22 still with somatic delusions however patient may be improving some and is putting in more effort towards behavioral activation. UPDATE 04/25/22; much better; still w/ depression and worries but attending to mostl adl's; somatic delusions signficantly reduced PLAN: Section 8b, involuntarily Civilly committed on 03/29.? q15min checks.? Signed HCP on 03/19/22 -COURT AFFIRMED HCP (04/08/2022): HCP's notified: Healthcare proxy invoked and now affirmed by the court. Healthcare proxies are 1st, patient's mother Le and then 2nd his father Chris. 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 -He does not want to or harm his body, however he is convinced it Is hopeless.? -continue Zyprexa/Zydis 20mg q.h.s. for now to make sure not causing daytime sedation:?COURT ORDERED; IF REFUSES GIVE IM zyprexa (discussed risks/benefits of this medication and antipsychotics to HCP's) -DC Ativan 1 mg pt rather not and content writer agrees to dc -Continue Prozac 40 mg daily for anxiety/depression and OCD like symptoms -patient agrees to walk the halls 3 times a day -ECT considered vs change to abilify, other med options B. Patient now eating and drinking adequately?(Minimal PO intake fluid/food: RESOLVED:?psychogenic origin) -now eating and drinking daily, even without prompting -making urine daily; Bun/Cr and Lytes remain WNL? -Ordered oral hygiene care t.i.d. with chlorhexidine mouthwash -if patient reverts back to refusal to drink, continue to evaluate kidney funct ion. May need to consider IV fluids, to avert risk of severe and/or permanent kidney damage. -currently Patient is still making urine and labs reveal kidney function remains WNL -Will continue to assess dehydration however?without fluids patient will at some point risks severe and even permanent kidney damage. -content writer has discussed case with both Psychiatric Director Dr. Pérez and several hospitalists (listed throughout) -will continue to monitor labs as pt allows C.?Thoracic aneurysm: Patient now taking metoprolol and amlodipine daily consulted with Valet Attendant Dr. Pennington and appreciate recommendations above -initially Pt refuses to allow CT to Assess thoracic aneurysm (last assessed Nov 2021 at 4.3cm; however while he initially c/o of ?sudden onset of substernal upper abdominal pain on eating/drinking, this complaint has resolved making this no longer a concern) Patient educated on: diagnosis, medication risk/benefits and ECT Informed Consent: understands and further education needed Reason for contiued inpatient stay Substantial Risk for: med/psych decompensation Time Spent With Patient Time: Total time managing care of this patient today ____ minutes.
--- NOTE | 2022-04-27 12:39 | P.PNPSI_ITS ---
Subjective Subjective Date of Service: 04/27/22 Reason For Visit: psychosis, delusions of persecution, SI Interim History: pt remains feeling a little better. Discussed dx and how anxiety got out of control causing somatic delusion. Pt Says he hopes this is true and knows he struggles w/ anxiety; however he still thinks it's more likely something is wrong w/ his body. Either way he finds that the medication has helped and says he'll continue taking it. denies any side-effects. He also says he will engage in therapy. Discussed tx plan and option of ECT if symptoms remain or worsen. discussed medical illnesses. Mental Status Exam Mental Status Exam Narrative: Pt is alert and oriented; behavior is more engaged, cooperative, calm; in casual attire, scruffy facial hair but adequate hygiene; mood is described as a little better and affect congruent, more expressive; not blunted; adequate eye contact; Speech is normal rate, volume and prosody and not pressured; some psychomotor retardation present but much less; thought process is goal directed, linear; Thought content is on being a little better; still with some worries; some somatic delusional thoughts but less intense; denies any SI/HI. There is no evidence of perceptual disturbance. Patients insight and judgment are impaired but significantly improved. Diagnostics Vital Signs (24Hr): Vital Signs - 24 hr 04/26/22 18:47 04/26/22 22:00 04/27/22 08:33 Temperature 98.6 F 96.8 F 97.7 F Pulse Rate 83 75 80 Respiratory Rate 16 16 18 Blood Pressure 109/69 128/68 109/75 Pulse Oximetry 97 97 96 Oxygen Delivery Method Room Air Room Air Room Air BMI result Body Mass Index 34.5 Labs 03/17/22 14:30 04/18/22 08:00 Imaging Radiology Impressions: ITS Impressions KUB X-Ray 03/18/22 16:35 IMPRESSION: Unremarkable examination. Medications Medications Current Medications Acetaminophen (Acetaminophen 325 Mg Tablet) 650 mg PO Q6H PRN PRN Reason: Headache/Pain Mild Scale (1-3) Al Hydroxide/Mg Hydroxide (Magnesium Hydrox/Alum Hydrox 30 Ml Oral.Susp) 30 ml PO Q6H PRN PRN Reason: Heartburn/Nausea Last Admin: 04/13/22 13:17 Dose: 30 ml Amlodipine Besylate (Amlodipine Besylate 5 Mg Tablet) 5 mg PO DAILY BRENTON; P rotocol Last Admin: 04/27/22 08:35 Dose: 5 mg Fluoxetine HCl (Fluoxetine Hcl 20 Mg Capsule) 40 mg PO DAILY BR[place]ON Last Admin: 04/27/22 08:35 Dose: 40 mg Magnesium Hydroxide (Milk Of Magnesia 30 Ml Oral.Susp) 30 ml PO DAILY PRN PRN Reason: Constipation Metoprolol Succinate (Metoprolol Succinate Er 25 Mg Tab.Er.24h) 25 mg PO DAILY BRENTON; Protocol Last Admin: 04/27/22 08:35 Dose: 25 mg Olanzapine (Olanzapine 10 Mg Vial) 10 mg IM DAILY PRN PRN Reason: if refuses PO Last Admin: 04/01/22 11:32 Dose: 10 mg Olanzapine (Olanzapine Odt 10 Mg Tab.Rapdis) 20 mg TRANSLINGU BEDTIME BRENTON Last Admin: 04/26/22 20:23 Dose: 20 mg Polyethylene Glycol (Polyethylene Glycol 3350 17 Gm Powd.Pack) 17 gm PO DAILY PRN PRN Reason: constipation Sodium Biphosphate/Sodium Phosphate (Sodium Phosphate,[place]-Dibasic 133 Ml Enema) 133 ml [place] ONCE PRN PRN Reason: Constipation Trazodone HCl (Trazodone Hcl 50 Mg Tablet) 50 mg PO BEDTIME PRN PRN Reason: Insomnia Allergies Allergies Allergy/AdvReac Type Severity Reaction Status Date / Time No Known Allergies Allergy Verified 03/17/22 16:59 Assessment & Plan Assessment & Plan (1) Somatic delusion disorder: Status: Acute Code(s): F22 - Delusional disorders (2) MDD (major depressive disorder), severe: Status: Acute Code(s): F32.2 - Major depressive disorder, single episode, severe without psychotic features (3) MACIEL (generalized anxiety disorder): Status: Acute Code(s): F41.1 - Generalized anxiety disorder (4) Thoracic aortic aneurysm: Status: Acute Code(s): I71.20 - Thoracic aortic aneurysm, without rupture, unspecified Assessment and Plan: Known chronic thoracic aortic aneurysm without any acute symptoms. This is a c hronic condition and there is no acute due to this lesion. It needs to be treated in the long run with medications such as metoprolol and other antihypertensive is a blood pressure remains elevated on metoprolol therapy to reduce she was stressed on the aorta. However is not having any acute symptoms at this point in time. Risk of rupture is very low in mild thoracic aortic aneurysm. His refusal of taking medication appears to be due to lack of understanding as well as his psychiatric condition that prevents him from processing the information. I would concentrate on treating his psychiatric condition so as to then eventually able to understand the need for taking medications. In the long run he will need to be followed as an outpatient by her sodium methylate operator that he was following before. If he has intermittent hypertensive episode which again seems to be driven by acute anxiety, would consider treating the anxiety disorder. Can use metoprolol intramuscularly if needed for acute hypertension. Although patient is currently refusing taking his medication and focus should be try to make him understand to take his medications. There is no relation should between thoracic aortic aneurysm and QT prolongation. Use of psychoactive medication as needed can be used and I do not see any clear contraindication, his EKG done on admission shows normal QTC interval. Usual precautions for QT prolongation with avoidance of other QT prolonging drugs and maintaining electrolytes especially magnesium and potassium in normal range. Also can check QTC interval after initiating psychoactive medications at a known to prolong QT interval. Will follow up if need be. Plan HPI: pt is a 46 yo male with long hx of anxiety, thoracic aneurysm (dx Nov 2021) who presents for severe anxiety in face of difficulty eating/drinking since this past monday. Pt is accompanied by his mother.? -Pt reports that this past monday he stopped being able to eat or drink since it caused pain (pointing to area just below his xiphoid process) and wretching. -hx of severe anxiety -but no hx of psychosis; no hx lyn Patient's parents review timeline events leading up to this admission: Prior to this summer, patient was overall doing fine, worked, drove his car and for the past 2 years had no obvious problems.? Parents agree that patient is drinking likely kept his anxiety down to some degree -September:? sister got diagnosed with melanoma very upsetting for patient -September:? patient had painless hematuria, cystoscopy did have a finding but it was benign -November:? About 4 years ago patient was diagnosed with thoracic aneurysm however he has not followed up.? This past summer he was going to the emergency room multiple times for various problems and eventually agreed to thoracic CT which showed that aneurysm had increased to 4.3 mg -December:? Patient had a severely ingrown toenail which required surgical extraction -January: Patient diagnosed with macular degeneration is right eye -over these months patient has been eating less and less, saying that he had little appetite, did not like the smell of meat and has lost 20 or more lb -March: on Monday patient had bloody stool; 1st bowel movement in a week On Monday patient suddenly had chest pain and subsequent retching after drinking any fluid or eating anything On 02:[address] [facility] ED, blood labs were drawn but no imaging or or labs; no fluid; long wait prompted patient to return home but he then came to [facility] ED where he got IV fluid HOSPITAL COURSE: .03/19 meeting w/ parents; pt anxious, lamenting that nothing can be done for him, just let him go...asking his parents to just leave him somewhere...Local Announcer asked where the side of the road? and he says yes. He denies any SI and laments i want to drink i want to eat...i just can't...i can't explain it.. but goes on to repeat that nothing can be done for him.? Patient refuses to believe that teletypewriter operator has seeing other patients who could not eat or drink, saying that this is a unique situation.? Local Announcer and parents together tried to encourage patient to take another Ativan under his tongue, which helped yesterday however he refused and kept saying it will not help... there is no point (after patient took Ativan under his tongue he was much more reasonable and able to engage with teletypewriter operator and agreed that perhaps he could be helped; at that time he agreed to KUB, barium swallow and thoracic CT-each intervention was explained to patient.? Patient got the KUB but was worried about the CT and eventually refused CT).? Patient refused an IV fluids for the same reason saying it is not going to help. Patient has a thoracic aneurysm and has not been taking his metoprolol or amlodipine saying he is unable to swallow.? Local Announcer discussed with patient who understands the need for these medications for his thoracic aneurysm however He refuses IV metoprolol saying it's not going to help...? Nothing is going to help....? You can not fix me.... -patient reported that he did make urine today, that it was brown and bubbly Local Announcer, Patient and mother and father discussed healthcare proxy and patient was initially ambivalent.? Local Announcer explained the details of healthcare proxy;? patient asked appropriate questions and expressed he understood and said he trus ts his parents and that they are great. Patient signed healthcare proxy designating his mother and than his father as alternate. Discussed case with Hospitalist Dr. Hernandez, Dr. Law (GI) and sodium methylate operator Dr. Serrano -Barrium swallow on hold to first r/o obstruction (per amrik Law) with KUB -KUB ordered (per Dr. Law): unremarkable -CT chest/angio/aortic ordered with IV contrast to r/o worsening thoracic aneurysm (per dr. Serrano-though considers this unlikely); pt refused -fleet enema ordered: refused 03/20 Patient remains delusional 03/21 Remains delusoinal. He was able to drink some, small amount of fluid; refused IV; again discussed w/ patient consequences of refusal but he maintains that it won't help anyway. 03/22 seems more depressed today and does not respond with anxious lament when approached with questions.? Remains delusional and refuses IV or any kind of medication or treatment.? He seems to agree to continue allowing lab work for monitoring kidney functions. -potassium mildly low today -BUN/creatinine WNL 03/23 patient remains with paranoid delusional thinking regarding his physical health.? He is trying to eat and drink and has been able to keep of food and fluids down.? He continues to refuse medication of any kind, including medications prescribed by sodium methylate operator to prevent thoracic aneurysm from worsening.? Both patient's parents/healthcare proxy want him to take medications including metoprolol and amlodipine. -lytes: WNL -BUN creatinine: WNL -patient is taking in enough fluid that his kidney function remains intact and at this time patient appears stable without IV fluids -he refuses IV for fluids, refuses thoracic CT, refuses barium swallow, refuses Fleet enema, refuses occult stool test; intermittently refuses labs; refuses all medication including IM and SL); thus far he has allowed labwork to monitor for kidney function.? Patient's anxiety is chronic but has reached a psychotic level and patient does not have the capacity to make medical decisions for himself. Patient has a detailed history of seeking treatment for his ailments. However, now he is disorganized; he says he wants to eat and drink, does not want to ...wants to live, does not want to damage his kidneys... however he refuses nearly all?treatments/interventions. -teletypewriter operator has discussed case w/ hospitalist and TRESSA 03/24 Patient remains delusional and despondent.? He says he is not good and continues to say I do not know what I am going to do I am just lost. Local Announcer discussed reasons to try medications to which patient says it makes sense however he follows up with I just do not know......i'm in bad shape... the only thing I know is that there are no solutions..? I am certain about... Local Announcer later met with patient again while his parents were visiting; patient's parents are urged him to try medications that teletypewriter operator is offering however patient ada mantly refuses.? He tried to help teletypewriter operator and family understand by saying I do not want to , I just know there is not a chance.? It is the only thing left that I do know. ? Family discussion about healthcare proxy and involuntary commitment which patient understands. -Lytes: WNL -BUN/creatinine: WNL -Patient making urine -Patient drank about 2 cups of water by miday and drank and orange juice box; also ate a fruit cup and a tangerine -given labs and fluid intake, patient appears stable without IV fluids 03/25/2022 Patient remains anxious despondent to me a appears to be psychotically depressed somatically delusional and on able to take in information or explain his self cyst drug active and potentially life-threatening behavior if he markedly limits food and fluids based on no rational explanation.? Refusing medical workup.? Patient has upcoming court hearing for retention and treatment plan.? Try to develop therapeutic Mc[place]osh encourage labs every other day monitor food and fluid intake may intermittently need IV fluids If patient remains acute may benefit from ECT treatment which would have a more acute impact potentially 03/29/22 pt Involuntarily committed with substituted judgment for medication.? Local Announcer discussed this with patient who said nothing is going to help 03/30 patient starting on Zyprexa; unable to believe he can take it p.o. or SL so given IM.? Patient very anxious, does not think anything will help 03/31 Remains delusional; Only Drinking when prompted to do so. Patient agrees there is no chest pain when eating or drinking and that doing so does not make him retch/vomit.? However he continues to assert that he can not drink even when he does so in front of teletypewriter operator.? Creatinine bumped up today.? Still within normal limits; Will check daily 04/01 remains delusional; no insight poor judgment; clearly mentally tortured by paranoid delusion. Needs constant prompting to drink; passively allows oral care. Case discussed with Dr. Pérez who agrees with current treatment plan -tachycardic; kidney function still within normal limits; mildly hypernatremic, likely from dehydration; will order CPK for tomorrow although no BRETT 04/02/22 remains with delusional sx. accepted PO meds today. Team is strongly encouraging food and fluids. Responds to consistent encouragement. Met with pt and mother, then parents after their visit. 04/03/22: Continue current plan. 04/04/22: Daily labs and monitoring. Consider possibly decreasing Lorazepam as it may be activating depressive sx. 04/05/22: Patient remains delusional, depressed and anxious; however he is eating and drinking adequately without prompting and lab work remains within normal limits. Patient is also little more communicative. Will start Prozac for anxiety/depression and OCD like symptoms; Prozac is also often used in combination with Zyprexa for treatment of depression. 04/06 continued somatic delusional worries; however continues to eat and drink adequately. Will give medications another day or so and then consider increasing doses 04/08 no change; continues to eat and drink adequately. Kidney function and lytes within normal limits however mildly increased ALT, possibly due to Prozac. Will increase, however will monitor. Choosing to increase Prozac since patient's illness is primarily anxiety though he also has a psychotic depression. Prozac has less side effect risks in general. That said may also eventually increase Zyprexa 04/09 remains psychotically depressed, with pronounced negative symptoms. Will likely increase Zyprexa 04/10 continue current regimen; eating and drinking, however not attending to any other ADLs. 04/11 seems that patient has plateaued; he is eating and drinking and taking medication and with prompting willing to walk the halls but otherwise remains de pressed, disheveled, not attending to ADLs including brushing his teeth, bathing changing clothing or getting out of bed unless prompted. Remains with delusional belief that something is irrevocably wrong with his body and that he can't explain it... Not responsive to reality testing. He is overall a little less anxious which is helpful. Will likely increase Zyprexa for continued psychotic depression. Patient had asked what he needs to do for discharge response given his start doing some of the things he would normally do such is bathe, brushes teeth, changes clothes, talk with others... to Which patient responded I do not think I can do that -at this time there is no less secure place for patient to receive treatment. He is eating and drinking but only because food and drink are brought to him; he walks the ahn 2 to 3 times a day but only because he is repeatedly prompted by staff andknows that he will end up getting Lovenox injections daily if he does not; he takes his medications however only because there court ordered. Without around the clock, trained, supportive staff and court-ordered medication, patient would rapidly decompensate. Case discussed with Dr. Pérez and team; will continue with medication titration however ECT is discussed and remains an option. 04/13 no change in presentation; complained of mild chest pain which started last night resolved and then resumed today. Discussed with hospitalist and patient had workup with unremarkable EKG and negative troponins. Will increase Prozac to 30 mg. 04/14 no chest pain no N/V; remains despondent with psychotic depression; broached the topic of ECT is potential treatment to which patient said it will not help; teletypewriter operator reviewed note by hospitalist TRESSA regarding yesterday's chest pain and teletypewriter operator agrees with conclusion and proposed treatment. Local Announcer asked patient what he thinks about all day as he lies in bed for most of it, hardly talking or interacting w/ anyone. Pt says nothing really and that his mind is mostly blank about during the day as he spends all of it lying in bed by himself not really talking to anyone, which makes OCD less likely 04/15 remains depressed; no insight; will increase Zyprexa to 20 and Prozac to [address] Pérez who agrees with this plan and is also starting to wonder if ECT might be necessary. It is possible try other antipsychotic however patient has had psychotic depression for nearly a month and a longer it persists the harder it can be to treat 04/16 continue current treatment plan; will change vitals back to Q b.i.d. Discussed case with nursing; met with patient; discussed case with pt's parents/HCP; reviewed vitals and WNL so will change back to BID; reviewed labs and will recheck CMP (K was mildly low); 04/17 some a mild improvement seen in patients effort as he is walking the halls without prompting, getting out of his room to get meal men use and agrees to try and sit in the milieu and watch TV. Discussed case with nursing who agrees that pt is mildly improved, little brighter affect; met with patient; reviewed vitals and WNL 04/18 some improvement 04/20 Patient remains depressed and with delusional worries.? He has improved some on medication and is now eating and drinking; however he still does not think he is able to shower or brush his teeth or changes clothes, things that he has normally done his entire life, demonstrating that both depression and delusions remain significant.? Local Announcer has discussed the case with colleague, Dr. Pérez who agrees that it is premature to conclude that patient has turned a corner and will continue improving; remains very possible that he will plateau and then again decompensate. There is concern that the longer his delusion/depression lingers, the harder it can become to treat.? Thus, will give a little more time for current medication doses to see if they can be more effective, however it remains very possible the patient will require ECT. ?? 04/25 pt improved; continue same meds 04/26 patient remains with improved insight; also able to get himself out of the room, attend ADLs other than showering. Would like discharge and agrees to continuing treatment as an outpatient. Discussed case with his parents who agree this is likely the best plan. Patient's mother thought he should remain with affirmed healthcare proxy in place. Discussed case further with social work team who agreed this is perhaps best for the time being as his improvement is new, limited and fragile and has yet to demonstrate it will remain long-term. 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 Symptoms likley formally subdued with alcohol abuse Patient has hx of anxiety started in childhood.? However has functioned in the community with almost no history of psychiatric meds/therapy. No hx of any psychosis or lyn.? 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 Starting this summer patient has undergone a series of stressful events (sisters cancer dx; patients own illness) triggering excessive worry and he's been going to the ED for psychosomatic complaints (along with organic ones); he has become unable to function, along worse, does not drive, not attending to ADLs. His parents agree that given patient's baseline anxiety, all these events combined into ov erwhelming anxiety and and tipped scales for him decompensate leading to this admission.? Patient is not manic; though he has paranoid, somatic delusions, he has no known history of psychotic illness. Pt's MACIEL/Somatic delusional worries (and possibly OCD) about his organic medical illness have become delusional making it difficult to ascertain what is going on and whether there is an organic component to his complaint that he cannot keep down food or water. Patient has no insight that he has delusional thoughts (he had 1 fleeting moment of insight after Ativan lowered anxiety). Although he can understand possible concerns/consequences of refusing treatment (such risks of worsening kidney function,which he does not want and so he eventually consents to getting blood draws to monitor) his paranoid delusional thinking makes him think all treatments are useless, won't help him and that his situation is hopeless. He is unaware the role his anxiety plays in confounding his thinking, insisting nothing will help, even when some of his complaints could be resolved with something as simple as an enema. UPDATE 04/14/22 Patient has been eating and drinking adequately without need for prompting. Started out as severe anxiety that had become psychotic and produced somatic delusional disorder; anxiety seems to have subsided and patient is more psychotically depressed with delusional somatic beliefs and negative symptoms anhedonia, anergia, avolition. Not attending to ADLs, lies in bed despondent all day; only walks the halls when prompted. Less likely OCD and pt does not c/o intrusive thoughts. UPDATE 04/17/22 still with somatic delusions however patient may be improving some and is putting in more effort towards behavioral activation. UPDATE 04/25/22; much better; still w/ depression and worries but attending to mostl adl's; somatic delusions signficantly reduced PLAN: Section 8b, involuntarily Civilly committed on 03/29.? q15min checks.? Signed HCP on 03/19/22 -COURT AFFIRMED HCP (04/08/2022): HCP's notified: Healthcare proxy invoked and now affirmed by the court. Healthcare proxies are 1st, patient's mother Le and then 2nd his father Chris. 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 -He does not want to or harm his body, however he is convinced it Is hopeless.? -continue Zyprexa/Zydis 20mg q.h.s. for now to make sure not causing daytime sedation:?COURT ORDERED; IF REFUSES GIVE IM zyprexa (discussed risks/benefits of this medication and antipsychotics to HCP's) -DC Ativan 1 mg pt rather not and teletypewriter operator agrees to dc -Continue Prozac 40 mg daily for anxiety/depression and OCD like symptoms -patient agrees to walk the halls 3 times a day -ECT considered vs change to abilify, other med options B. Patient now eating and drinking adequately?(Minimal PO intake fluid/food: RESOLVED:?psychogenic origin) -now eating and drinking daily, even without prompting -making urine daily; Bun/Cr and Lytes remain WNL? -Ordered oral hygiene care t.i.d. with chlorhexidine mouthwash -if patient reverts back to refusal to drink, continue to evaluate kidney function. May need to consider IV fluids, to avert risk of severe and/or permanent kidney damage. -currently Patient is still making urine and labs reveal kidney function remains WNL -Will continue to assess dehydration however?without fluids patient will at some point risks severe and even permanent kidney damage. -teletypewriter operator has discussed case with both Psychiatric Director Dr. Pérez and several hospitalists (listed throughout) -will continue to monitor labs as pt allows C.?Thoracic aneurysm: Patient now taking metoprolol and amlodipine daily consulted with Hotel Registration Clerk Dr. Pennington and appreciate recommendations above -initially Pt refuses to allow CT to Assess thoracic aneurysm (last assessed Nov 2021 at 4.3cm; however while he initially c/o of ?sudden onset of substernal upper abdominal pain on eating/drinking, this complaint has resolved making this no longer a concern) Patient educated on: diagnosis, medication risk/benefits and therapeutic strategies Informed Consent: understands, does not understand and further education needed Reason for contiued inpatient stay Substantial Risk for: stable for discharge Time Spent With Patient Time: Total time managing care of this patient today ____ minutes.
[2022-04-27] MEDS: OLANZapine ODT 10 MG TAB.RAPDIS 20 MG TRANSLINGU (20:17)
[2022-04-28 07:00] VITALS: BMI 34.7
[2022-04-28 08:00] VITALS: BP 117/77; PULSE 84; RESP 16; TEMP 36.9; O2SAT 97
[2022-04-28] MEDS: Metoprolol Succinate ER 25 MG TAB.ER.24H PO (09:01)
[2022-04-28] MEDS: FLUoxetine HCl 20 MG CAPSULE 40 MG PO (09:01)
[2022-04-28] MEDS: amLODIPine Besylate 5 MG TABLET PO (09:01)
--- NOTE | 2022-04-28 10:27 | P.PNPSI_ITS ---
Subjective Subjective Date of Service: 04/28/22 Reason For Visit: psychosis, delusions of persecution, SI Interim History: met /w patient; discussed in teams; prepared dc meds pt reports he feels ready to go. He plans to continue taking medication. Pt expresses hope that he will continue to improve and get closer to his regular self. Mental Status Exam Mental Status Exam Narrative: Pt is alert and oriented; behavior is more engaged, cooperative, calm; in casual attire, scruffy facial hair but adequate hygiene; mood is described as better and affect congruent, more expressive; not blunted; adequate eye contact; Speech is normal rate, volume and prosody and not pressured; some psychomotor retardation present but much less; thought process is goal directed, linear; Thought content is on being a little better but still with some somatic delusional thoughts, though much less intense; denies any SI/HI. There is no evidence of perceptual disturbance. Patients insight and judgment are impaired but significantly improved. Diagnostics Vital Signs (24Hr): BMI result Body Mass Index 34.5 Labs 03/17/22 14:30 04/18/22 08:00 Imaging Radiology Impressions: ITS Impressions KUB X-Ray 03/18/22 16:35 IMPRESSION: Unremarkable examination. Medications Medications Current Medications Acetaminophen (Acetaminophen 325 Mg Tablet) 650 mg PO Q6H PRN PRN Reason: Headache/Pain Mild Scale (1-3) Al Hydroxide/Mg Hydroxide (Magnesium Hydrox/Alum Hydrox 30 Ml Oral.Susp) 30 ml PO Q6H PRN PRN Reason: Heartburn/Nausea Last Admin: 04/13/22 13:17 Dose: 30 ml Amlodipine Besylate (Amlodipine Besylate 5 Mg Tablet) 5 mg PO DAILY BRENTON; Protocol Last Admin: 04/28/22 09:01 Dose: 5 mg Fluoxetine HCl (Fluoxetine Hcl 20 Mg Capsule) 40 mg PO DAILY [place]ON Last Admin: 04/28/22 09:01 Dose: 40 mg Magnesium Hydroxide (Milk Of Magnesia 30 Ml Oral.Susp) 30 ml PO DAILY PRN PRN Reason: Constipation Metoprolol Succinate (Metoprolol Succinate Er 25 Mg Tab.Er.24h) 25 mg PO DAILY BRENTON; Protocol Last Admin: 04/28/22 09:01 Dose: 25 mg Olanzapine (Olanzapine 10 Mg Vial) 10 mg IM DAILY PRN PRN Reason: if refuses PO Last Admin: 04/01/22 11:32 Dose: 10 mg Olanzapine (Olanzapine Odt 10 Mg Tab.Rapdis) 20 mg TRANSLINGU BEDTIME [place]ON Last Admin: 04/27/22 20:17 Dose: 20 mg Polyethylene Glycol (Polyethylene Glycol 3350 17 Gm Powd.Pack) 17 gm PO DAILY PRN PRN Reason: constipation Sodium Biphosphate/Sodium Phosphate (Sodium Phosphate,Whatcom-Dibasic 133 Ml Enema) 133 ml FL ONCE PRN PRN Reason: Constipation Trazodone HCl (Trazodone Hcl 50 Mg Tablet) 50 mg PO BEDTIME PRN PRN Reason: Insomnia Allergies Allergies Allergy/AdvReac Type Severity Reaction Status Date / Time No Known Allergies Allergy Verified 03/17/22 16:59 Assessment & Plan Assessment & Plan (1) Somatic delusion disorder: Status: Acute Code(s): F22 - Delusional disorders (2) MDD (major depressive disorder), severe: Status: Acute Code(s): F32.2 - Major depressive disorder, single episode, severe without psychotic features (3) MACIEL (generalized anxiety disorder): Status: Acute Code(s): F41.1 - Generalized anxiety disorder (4) Thoracic aortic aneurysm: Status: Acute Code(s): I71.20 - Thoracic aortic aneurysm, without rupture, unspecified Assessment and Plan: Known chronic thoracic aortic aneurysm without any acute symptoms. This is a chronic condition and there is no acute due to this lesion. It needs to be treated in the long run with medications such as metoprolol and other antihypertensive is a blood pressure remains elevated on metoprolol therapy to reduce she was stressed on the aorta. However is not having any acute symptoms at this point in time. Risk of rupture is very low in mild thoracic aortic aneurysm. His refusal of taking medication appears to be due to lack of understanding as well as his psychiatric condition that prevents him from processing the information. I would concentrate on treating his psychiatric condition so as to then eventually able to understand the need for taking medications. In the long run he will need to be followed as an outpatient by her manager intensive care unit that he was following before. If he has intermittent hypertensive episode which again seems to be driven by acute anxiety, would consider treating the anxiety disorder. Can use metoprolol intramuscularly if needed for acute hypertension. Although patient is currently refusing taking his medication and focus should be try to make him understand to take his medications. There is no relation should between thoracic aortic aneurysm and QT prolongation. Use of psychoactive medication as needed can be used and I do not see any clear contraindication, his EKG done on admission shows normal QTC interval. Usual precautions for QT prolongation with avoidance of other QT prolonging drugs and maintaining electrolytes especially magnesium and potassium in normal range. Also can check QTC interval after initiating psychoactive medications at a known to prolong QT interval. Will follow up if need be. Plan HPI: pt is a 46 yo male with long hx of anxiety, thoracic aneurysm (dx Nov 2021) who presents for severe anxiety in face of difficulty eating/drinking since this past monday. Pt is accompanied by his mother.? -Pt reports that this past monday he stopped being able to eat or drink since it caused pain (pointing to area just below his xiphoid process) and wretching. -hx of severe anxiety -but no hx of psychosis; no hx lyn Patient's parents review timeline events leading up to this admission: Prior to this summer, patient was overall doing fine, worked, drove his car and for the past 2 years had no obvious problems.? Parents agree that patient is drinking likely kept his anxiety down to some degree -September:? sister got diagnosed with melanoma very upsetting for patient -September:? patient had painless hematuria, cystoscopy did have a finding but it was benign -November:? About 4 years ago patient was diagnosed with thoracic aneurysm however he has not followed up.? This past summer he was going to the emergency room multiple times for various problems and eventually agreed to thoracic CT which showed that aneurysm had increased to 4.3 mg -December:? Patient had a severely ingrown toenail which required surgical extraction -January: Patient diagnosed with macular degeneration is right eye -over these months patient has been eating less and less, saying that he had little appetite, did not like the smell of meat and has lost 20 or more lb -March: on Monday patient had bloody stool; 1st bowel movement in a week On Monday patient suddenly had chest pain and subsequent retching after drinking any fluid or eating anything On 02:30 patient went to [facility] ED, blood labs were drawn but no imaging or or labs; no fluid; long wait prompted patient to return home but he then came to [place] ED where he got IV fluid HOSPITAL COURSE: .03/19 meeting w/ parents; pt anxious, lamenting that nothing can be done for him, just let him go...asking his parents to just leave him somewhere...Barrel Turner asked where the side of the road? and he says yes. He denies any SI and laments i want to drink i want to eat...i just can't...i can't explain it.. but goes on to repeat that nothing can be done for him.? Patient refuses to believe that check writer salesperson has seeing other patients who could not eat or drink, saying that this is a unique situation.? Barrel Turner and parents together tried to encourage patient to take another Ativan under his tongue, which helped yesterday however he refused and kept saying it will not help... there is no point (after patient took Ativan under his tongue he was much more reasonable and able to engage with check writer salesperson and agreed that perhaps he could be helped; at that time he agreed to KUB, barium swallow and thoracic CT-each intervention was explained to patient.? Patient got the KUB but was worried about the CT and eventually refused CT).? Patient refused an IV fluids for the same reason saying it is not going to help. Patient has a thoracic aneurysm and has not been taking his metoprolol or amlodipine saying he is unable to swallow.? Barrel Turner discussed with patient who understands the need for these medications for his thoracic aneurysm however He refuses IV metoprolol saying it's not going to help...? Nothing is going to help....? You can not fix me.... -patient reported that he did make urine today, that it was brown and bubbly Barrel Turner, Patient and mother and father discussed healthcare proxy and patient was initially ambivalent.? Barrel Turner explained the details of healthcare proxy;? patient asked appropriate questions and expressed he understood and said he trusts his parents and that they are great. Patient signed healthcare proxy designating his mother and than his father as alternate. Discussed case with Hospitalist Dr. Hernandez, Dr. Law (GI) and manager intensive care unit Dr. Serrano -Odalys swallow on hold to first r/o obstruction (per amrik Law) with KUB -KUB ordered (per Dr. Law): unremarkable -CT chest/angio/aortic ordered with IV contrast to r/o worsening thoracic aneurysm (per dr. Serrano-though considers this unlikely); pt refused -fleet enema ordered: refused 03/20 Patient remains delusional 03/21 Remains delusoinal. He was able to drink some, small amount of fluid; refused IV; again discussed w/ patient consequences of refusal but he maintains that it won't help anyway. 03/22 seems more depressed today and does not respond with anxious lament when approached with questions.? Remains delusional and refuses IV or any kind of medication or treatment.? He seems to agree to continue allowing lab work for monitoring kidney functions. -potassium mildly low today -BUN/creatinine WNL 03/23 patient remains with paranoid delusional thinking regarding his physical health.? He is trying to eat and drink and has been able to keep of food and fluids down.? He continues to refuse medication of any kind, including medications prescribed by manager intensive care unit to prevent thoracic aneurysm from worsening.? Both patient's parents/healthcare proxy want him to take medications including metoprolol and amlodipine. -lytes: WNL -BUN creatinine: WNL -patient is taking in enough fluid that his kidney function remains intact and at this time patient appears stable without IV fluids -he refuses IV for fluids, refuses thoracic CT, refuses barium swallow, refuses Fleet enema, refuses occult stool test; intermittently refuses labs; refuses all medication including IM and SL); thus far he has allowed labwork to monitor for kidney function.? Patient's anxiety is chronic but has reached a psychotic level and patient does not have the capacity to make medical decisions for himself. Patient has a detailed history of seeking treatment for his ailments. However, now he is disorganized; he says he wants to eat and drink, does not want to ...wants to live, does not want to damage his kidneys... however he refuses nearly all?treatments/interventions. -check writer salesperson has discussed case w/ hospitalist and PA 03/24 Patient remains delusional and despondent.? He says he is not good and continues to say I do not know what I am going to do I am just lost. Barrel Turner discussed reasons to try medications to which patient says it makes sense however he follows up with I just do not know......i'm in bad shape... the only thing I know is that there are no solutions..? I am certain about... Barrel Turner later met with patient again while his parents were visiting; patient's parents are urged him to try medications that check writer salesperson is offering however patient adamantly refuses.? He tried to help check writer salesperson and family understand by saying I do not want to , I just know there is not a chance.? It is the only thing left that I do know. ? Family discussion about healthcare proxy and involuntary commitment which patient understands. -Lytes: WNL -BUN/creatinine: WNL -Patient making urine -Patient drank about 2 cups of water by miday and drank and orange juice box; also ate a fruit cup and a tangerine -given labs and fluid intake, patient appears stable without IV fluids 03/25/2022 Patient remains anxious despondent to me a appears to be psychotically depressed somatically delusional and on able to take in information or explain his self cyst drug active and potentially life-threatening behavior if he markedly limits food and fluids based on no rational explanation.? Refusing medical workup.? Patient has upcoming court hearing for retention and treatment plan.? Try to develop therapeutic [place] encourage labs every other day monitor food and fluid intake may intermittently need IV fluids If patient remains acute may benefit from ECT treatment which would have a more acute impact potentially 03/29/22 pt Involuntarily committed with substituted judgment for medication.? Barrel Turner discussed this with patient who said nothing is going to help 03/30 patient starting on Zyprexa; unable to believe he can take it p.o. or SL so given IM.? Patient very anxious, does not think anything will help 03/31 Remains delusional; Only Drinking when prompted to do so. Patient agrees there is no chest pain when eating or drinking and that doing so does not make him retch/vomit.? However he continues to assert that he can not drink even when he does so in front of check writer salesperson.? Creatinine bumped up today.? Still within normal limits; Will check daily 04/01 remains delusional; no insight poor judgment; clearly mentally tortured by paranoid delusion. Needs constant prompting to drink; passively allows oral care. Case discussed with Dr. Pérez who agrees with current treatment plan -tachycardic; kidney function still within normal limits; mildly hypernatremic, likely from dehydration; will order CPK for tomorrow although no BRETT 04/02/22 remains with delusional sx. accepted PO meds today. Team is strongly encouraging food and fluids. Responds to consistent encouragement. Met with pt and mother, then parents after their visit. 04/03/22: Continue current plan. 04/04/22: Daily labs and monitoring. Consider possibly decreasing Lorazepam as it may be activating depressive sx. 04/05/22: Patient remains delusional, depressed and anxious; however he is eating and drinking adequately without prompting and lab work remains within normal limits. Patient is also little more communicative. Will start Prozac for anxiety/depression and OCD like symptoms; Prozac is also often used in combination with Zyprexa for treatment of depression. 04/06 continued somatic delusional worries; however continues to eat and drink adequately. Will give medications another day or so and then consider increasing doses 04/08 no change; continues to eat and drink adequately. Kidney function and lytes within normal limits however mildly increased ALT, possibly due to Prozac. Will increase, however will monitor. Choosing to increase Prozac since patient's illness is primarily anxiety though he also has a psychotic depression. Prozac has less side effect risks in general. That said may also eventually increase Zyprexa 04/09 remains psychotically depressed, with pronounced negative symptoms. Will likely increase Zyprexa 04/10 continue current regimen; eating and drinking, however not attending to any other ADLs. 04/11 seems that patient has plateaued; he is eating and drinking and taking medication and with prompting willing to walk the halls but otherwise remains depressed, disheveled, not attending to ADLs including brushing his teeth, bathing changing clothing or getting out of bed unless prompted. Remains with delusional belief that something is irrevocably wrong with his body and that he can't explain it... Not responsive to reality testing. He is overall a little less anxious which is helpful. Will likely increase Zyprexa for continued psycho tic depression. Patient had asked what he needs to do for discharge response given his start doing some of the things he would normally do such is bathe, brushes teeth, changes clothes, talk with others... to Which patient responded I do not think I can do that -at this time there is no less secure place for patient to receive treatment. He is eating and drinking but only because food and drink are brought to him; he walks the ahn 2 to 3 times a day but only because he is repeatedly prompted by staff andknows that he will end up getting Lovenox injections daily if he does not; he takes his medications however only because there court ordered. Without around the clock, trained, supportive staff and court-ordered medication, patient would rapidly decompensate. Case discussed with Dr. Pérez and team; will continue with medication titration however ECT is discussed and remains an option. 04/13 no change in presentation; complained of mild chest pain which started last night resolved and then resumed today. Discussed with hospitalist and patient had workup with unremarkable EKG and negative troponins. Will increase Prozac to 30 mg. 04/14 no chest pain no N/V; remains despondent with psychotic depression; broached the topic of ECT is potential treatment to which patient said it will not help; check writer salesperson reviewed note by hospitalist TRESSA regarding yesterday's chest pain and check writer salesperson agrees with conclusion and proposed treatment. Barrel Turner asked patient what he thinks about all day as he lies in bed for most of it, hardly talking or interacting w/ anyone. Pt says nothing really and that his mind is mostly blank about during the day as he spends all of it lying in bed by himself not really talking to anyone, which makes OCD less likely 04/15 remains depressed; no insight; will increase Zyprexa to 20 and Prozac to [address] Pérez who agrees with this plan and is also starting to wonder if ECT might be necessary. It is possible try other antipsychotic however patient has had psychotic depression for nearly a month and a longer it persists the harder it can be to treat 04/16 continue current treatment plan; will change vitals back to Q b.i.d. Discussed case with nursing; met with patient; discussed case with pt's parents/HCP; reviewed vitals and WNL so will change back to BID; reviewed labs and will recheck CMP (K was mildly low); 04/17 some a mild improvement seen in patients effort as he is walking the halls without prompting, getting out of his room to get meal men use and agrees to try and sit in the milieu and watch TV. Discussed case with nursing who agrees that pt is mildly improved, little brighter affect; met with patient; reviewed vitals and WNL 04/18 some improvement 04/20 Patient remains depressed and with delusional worries.? He has improved some on medication and is now eating and drinking; however he still does not think he is able to shower or brush his teeth or changes clothes, things that he has normally done his entire life, demonstrating that both depression and delusions remain significant.? Barrel Turner has discussed the case with colleague, Dr. Pérez who agrees that it is premature to conclude that patient has turned a corner and will continue improving; remains very possible that he will plateau and then again decompensate. There is concern that the longer his delusion/depression lingers, the harder it can become to treat.? Thus, will give a little more time for current medication doses to see if they can be more effective, however it remains very possible the patient will require ECT. ?? 04/25 pt improved; continue same meds 04/26 patient remains with improved insight; also able to get himself out of the room, attend ADLs other than showering. Would like discharge and agrees to continuing treatment as an outpatient. Discussed case with his parents who agree this is likely the best plan. Patient's mother thought he should remain with affirmed healthcare proxy in place. Discussed case further with social work team who agreed this is perhaps best for the time being as his improvement is new, limited and fragile and has yet to demonstrate it will remain long-term. 04/28 stablized; improved insight and judgment; will continue to take meds and f/o w/ outpt providers.Returns to supportive environment, living w/ his parents. Remains w/ somatic delusions but much less so; remains vulnerable to decompensation but pt is not in imminent risk for harm to self or others and request for dc honored. 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 Symptoms likley formally subdued with alcohol abuse Patient has hx of anxiety started in childhood.? However has functioned in the community with almost no history of psychiatric meds/therapy. No hx of any psychosis or lyn.? 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 Starting this summer patient has undergone a series of stressful events (sisters cancer dx; patients own illness) triggering excessive worry and he's been going to the ED for psychosomatic complaints (along with organic ones); he has become unable to function, along worse, does not drive, not attending to ADLs. His parents agree that given patient's baseline anxiety, all these events combined into overwhelming anxiety and and tipped scales for him decompensate leading to this admission.? Patient is not manic; though he has paranoid, somatic delusions, he has no known history of psychotic illness. Pt's MACIEL/Somatic delusional worries (and possibly OCD) about his organic medical illness have become delusional making it difficult to ascertain what is going on and whether there is an organic component to his complaint that he cannot keep down food or water. Patient has no insight that he has delusional thoughts (he had 1 fleeting moment of insight after Ativan lowered anxiety). Although he can understand possible concerns/consequences of refusing treatment (such risks of worsening kidney function,which he does not want and so he eventually consents to getting blood draws to monitor) his paranoid delusional thinking makes him think all treatments are useless, won't help him and that his situation is hopeless. He is unaware the role his anxiety plays in confounding his thinking, insisting nothing will help, even when some of his complaints could be resolved with something as simple as an enema. UPDATE 04/14/22 Patient has been eating and drinking adequately without need for prompting. Started out as severe anxiety that had become psychotic and produced somatic delusional disorder; anxiety seems to have subsided and patient is more psychotically depressed with delusional somatic beliefs and negative symptoms anhedonia, anergia, avolition. Not attending to ADLs, lies in bed despondent all day; only walks the halls when prompted. Less likely OCD and pt does not c/o intrusive thoughts. UPDATE 04/17/22 still with somatic delusions however patient may be improving some and is putting in more effort towards behavioral activation. UPDATE 04/25/22; much better; still w/ depression and worries but attending to mostl adl's; somatic delusions signficantly reduced PLAN: Section 8b, involuntarily Civilly committed on 03/29.? q15min checks.? Signed HCP on 03/19/22 -COURT AFFIRMED HCP (04/08/2022): HCP's notified: Healthcare proxy invoked and now affirmed by the court. Healthcare proxies are 1st, patient's mother Le and then 2nd his father Chris. 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 -He does not want to or harm his body, however he is convinced it Is hopeless.? -continue Zyprexa/Zydis 20mg q.h.s. 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 Patient now eating and drinking adequately?(Minimal PO intake fluid/food: RESOLVED:?psychogenic origin) -now eating and drinking daily, even without prompting -making urine daily; Bun/Cr and Lytes remain WNL? -Ordered oral hygiene care t.i.d. with chlorhexidine mouthwash -if patient reverts back to refusal to drink, continue to evaluate kidney function. May need to consider IV fluids, to avert risk of severe and/or permanent kidney damage. -currently Patient is still making urine and labs reveal kidney function remains WNL -Will continue to assess dehydration however?without fluids patient will at some point risks severe and even permanent kidney damage. -check writer salesperson has discussed case with both Psychiatric Director Dr. Pérez and several hospitalists (listed throughout) -will continue to monitor labs as pt allows C.?Thoracic aneurysm: Patient now taking metoprolol and amlodipine daily consulted with Dedicated Driver Dr. Pennington and appreciate recommendations above -initially Pt refuses to allow CT to Assess thoracic aneurysm (last assessed Nov 2021 at 4.3cm; however while he initially c/o of ?sudden onset of substernal upper abdominal pain on eating/drinking, this complaint has resolved making this no longer a concern) Patient educated on: diagnosis, medication risk/benefits and therapeutic strategies Informed Consent: understands and further education needed Reason for contiued inpatient stay Substantial Risk for: stable for discharge Time Spent With Patient Time: Total time managing care of this patient today ____ minutes.
[2022-04-28 17:43] VITALS: BP 109/72; PULSE 84; RESP 16; TEMP 36.7; O2SAT 98
[2022-04-28] MEDS: OLANZapine ODT 10 MG TAB.RAPDIS 20 MG TRANSLINGU (20:08)
[2022-04-29 09:12] VITALS: BP 116/70; PULSE 76; RESP 18; TEMP 35.9; O2SAT 96
[2022-04-29] MEDS: Metoprolol Succinate ER 25 MG TAB.ER.24H PO (09:14)
[2022-04-29] MEDS: amLODIPine Besylate 5 MG TABLET PO (09:14)
[2022-04-29] MEDS: FLUoxetine HCl 20 MG CAPSULE 40 MG PO (09:15)
--- NOTE | 2022-04-29 10:39 | P.DS_ITS ---
DS: Providers Provider Date of Service: 04/29/22 Date of admission: 03/17/22 20:48 Date of discharge: 04/29/22 Primary care physician: Reese Weiner MD Attending physician on admission: Ivan Vanessa Consults: 03/21/22 12:11 Consult to Hospitalist Routine Consulting Provider: Hospitalist Reason For Exam: IV fluids 03/30/22 14:39 Consult to Cardiology Routine Consulting Provider: Macho Serrano Reason for consultation: chart review/recs: antipsychotics given thoracic aneurysm; altn to metoprol Attending physician on discharge: Ivan Vanessa DS: Diagnosis Discharge Diagnosis (1) Somatic delusion disorder: Status: Acute (2) MDD (major depressive disorder), severe: Status: Acute (3) MACIEL (generalized anxiety disorder): Status: Acute (4) Thoracic aortic aneurysm: Status: Acute DS: Medications Discharge Medications Home Medications: Previous Rx's Medication Instructions Recorded amlodipine 5 mg tablet 5 mg PO DAILY 30 days #30 tabs 04/28/22 metoprolol succinate 25 mg 25 mg PO DAILY 30 days #30 tabs 04/28/22 tablet,extended release 24 hr olanzapine 20 mg tablet (Zyprexa) 20 mg PO BEDTIME 30 days #30 tabs 04/28/22 fluoxetine 20 mg capsule 60 mg PO DAILY 30 days #90 caps 04/29/22 Mental Status Exam Mental Status Exam Narrative: Pt is alert and oriented; behavior is more engaged, cooperative, calm; in casual attire, scruffy facial hair but adequate hygiene; mood is described as better and affect congruent, more expressive; not blunted; adequate eye contact; Speech is normal rate, volume and prosody and not pressured; some psychomotor retardation present but much less; thought process is goal directed, linear; Thought content is on being a little better but still with some somatic delusional thoughts, though much less intense; denies any SI/HI. There is no evidence of perceptual disturbance. Patients insight and judgment are impaired but significantly improved. Data Imaging Diagnostic Imaging Impressions [facility] X-Ray 03/18/22 16:35 IMPRESSION: Unremarkable examination. DS: Summary Hospital Course Hospital Course: HPI: pt is a 46 yo male with long hx of anxiety, thoracic aneurysm (dx Nov 2021), recently dx macular degeneration, who presents for severe anxiety in face of difficulty eating/drinking since this past monday, thought most likely to be due to psychiatric illness however needing to rule out organic cause. . Pt is accompanied by his mother.? -Pt reports that this past monday he stopped being able to eat or drink since it caused pain (pointing to area just below his xiphoid process) and wretching. -hx of severe anxiety -but no hx of psychosis; no hx lyn Patient's parents review timeline events leading up to this admission: Prior to this summer, patient was overall doing fine, worked, drove his car and for the past 2 years had no obvious problems.? Parents agree that patient is drinking likely kept his anxiety down to some degree -September:? sister got diagnosed with melanoma very upsetting for patient -September:? patient had painless hematuria, cystoscopy did have a finding but it was benign -November:? About 4 years ago patient was diagnosed with thoracic aneurysm however he has not followed up.? This past summer he was going to the emergency room multiple times for various problems and eventually agreed to thoracic CT which showed that aneurysm had increased to 4.3 mg -December:? Patient had a severely ingrown toenail which required surgical extraction -January: Patient diagnosed with macular degeneration is right eye -over these months patient has been eating less and less, saying that he had little appetite, did not like the smell of meat and has lost 20 or more lb -March: on Monday patient had bloody stool; 1st bowel movement in a week On Monday patient suddenly had chest pain and subsequent retching after drinking any fluid or eating anything On 02:30 patient went to [facility] ED, blood labs were drawn but no imaging or or labs; no fluid; long wait prompted patient to return home but he then came to [facility] where he got IV fluid HOSPITAL COURSE: Complicated case. In short, organic causes were ruled out and patient symptoms due to psychiatric illness. 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 Symptoms likley formally subdued with alcohol abuse. Patient has hx of severe anxiety started in childhood.? However has functioned in the community with almost no history of psychiatric meds/therapy. No hx of any psychosis or lyn.? 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 Starting this summer patient has undergone a series of stressful events (sisters cancer dx; patients own illness) triggering excessive worry; he's been going to the ED for psychosomatic complaints (along with organic ones); he has become unable to function, no longer drives, not attending to ADLs. His parents agree that given patient's baseline anxiety, all these events combined into overwhelming anxiety and and tipped scales for him decompensate leading to this admission.? Patient is not manic; though he has paranoid, somatic delusions. Initially patient said he could not keep water down, could not eat, would lie in bed and only express hopeless somatic delusional thoughts, convinced something was wrong with him the could never be determined and never fixed. Patient refusing all interventions including metoprolol and amlodipine which were prescribed for his thoracic aneurysm. Patient designated his parents his healthcare proxies which was invoked and affirmed. Patient was started on Zyprexa for delusional thoughts and Prozac for both depression, MACIEL and OCD like symptoms and Ativan. ECT was considered but patient eventually improved. However for weeks, on medication, patient remained psychotically depressed with delusional somatic beliefs and negative symptoms anhedonia, anergia, avolition; not attending to ADLs, lying in bed despondent all day; only walks the halls when prompted. Though hopeless he was going to likely , patient did not have any suicidal ideation. He only took medications, allowed for lab work because healthcare proxy was invoked and affirmed. Organic causes all ruled out (see below). Slowly, patient improved. He was able to eat and drink without problem and with much prompting, started to attend ADLs, leaving his room and walking the halls. Patient started asking about discharge and though he remained with remnant somatic delusion, he was willing to engage in most ADLs on his own wi thout needing to be encouraged by staff; he was also talking more freely and about things other than illness, and going into the milue on his own, watching TV and becoming more social. Eventually patient began to stabilize and and insight improved and he started to consider that much of this was possibly a psychiatric illness only. Patient's parents were involved and visited daily. Patient requested discharge home where he lives with his supportive parents. By the end of admission, patient was eating and sleeping well, attending to nearly all ADLs without prompting and overall feeling better, hopeful that he would continue to improve. Discussed with team and patient's parents who agreed that patient was appropriate continue care as an outpatient. Patient was not in imminent risk for harm to self or others, agreed to continue with medication, returns to his supportive parents and will attend outpatient provider appointments. His request for discharge honored. Time spent discussing smoking cessation with patient: 3 to 10 minutes Status at Discharge Functional status at discharge: independent ambulation Overall status at discharge: patient is progressing back to baseline Time Spent with Patient Time attestation: Total time managing care of this patient today ____ minutes. Time spent: Greater than 30 minutes Discharge Plan Discharge Anticipated Discharge Date/Time: 04/29/22 13:00 Patient Disposition: Home, Self-Care Discharge Diagnosis: somatic delusion disorder Referrals: Therapy Intake: Jovanny Longoria ([facility]) [Other] - 05/02/22 11:00 am (Appointment is in person at the office in [place]. Please arrive 15 minutes early to complete paperwork. ) Psychiatrist: Ayde Marsh ([facility]) [Other] - 05/26/22 11:00 am (Telehealth- Dr. Marsh will call your phone at the time of your appointment) Psychiatrist: Ayde Marsh ([facility]) [Other] - 06/23/22 11:00 am (Telehealth- Dr. Marsh will call your phone at the time of your appointment) Reese Weiner MD [Primary Care Provider] - 1 Week (MD office will call to schedule and appointment) Discharge Medications: New olanzapine [Zyprexa] 20 mg tablet 20 mg PO BEDTIME 30 Days Qty: 30 0RF fluoxetine [Prozac] 40 mg capsule 40 mg PO DAILY 30 Days Qty: 30 0RF Changed amlodipine 5 mg tablet 5 mg PO DAILY 30 Days Qty: 30 0RF metoprolol succinate 25 mg tablet extended release 24 hr 25 mg PO DAILY 30 Days Qty: 30 0RF Discharge Orders: Discharge Order (Routine); Ordered 04/29/22 Ordered By: Ivan Vanessa Diet: Regular diet Activity on Discharge: As tolerated Stand Alone Forms: Patient Portal Discharge page, Community Support Care Plan Goals: Maintain mood and safe behaviors Take medications as prescribed Continue to pursue sobriety Practice coping skills Continue with outpatient providers and reach out to them as needed Health Concerns: Mood stability and behaviors Thoracic aneurysm Macular degeneration Plan of Treatment: Follow up with your PCP, psychiatric provider and other outpatient providers regarding above concerns Take medications as prescribed Assessment: Risk assessment at time of discharge:? Patient was interviewed prior to discharge and found to be fully oriented and without any SI or HI. Patient has insight and demonstrates good judgment in terms of wanting to pursue treatment. Patient is not in imminent risk of harm to self or others and has a safety plan that includes presenting to the closest ER or calling 911 if feeling unsafe.? Scooby rodriguez has been observed closely by nursing and unit staff throughout admission; patient has not engaged in any behaviors that suggest dangerousness to self or others and has demonstrated appropriate behaviors and impulse control Discharge Date/Time: 04/29/22 12:05
== END 2022-04-29 12:05 | disposition home or self-care (01) | DRG 760 ==
LOC: HO.ED 17:33 → HO.PM5 20:54
PROVIDERS: Clinical Nurse Specialist Psychiatric/Mental Health, Adult; Student in an Organized Health Care Education/Training Program; Admitting Provider Psychiatry & Neurology Psychiatry; Emergency Provider Student in an Organized Health Care Education/Training Program; PCP Pediatrics; Visit Provider Psychiatry & Neurology Psychiatry
DX: F22 Delusional disorders (principal); R45.851 Suicidal ideations; I71.20 Thoracic aortic aneurysm, without rupture, unspecified; F32.9 Major depressive disorder, single episode, unspecified; K21.9 Gastro-esophageal reflux disease without esophagitis; F10.11 Alcohol abuse, in remission; R00.0 Tachycardia, unspecified; F41.1 Generalized anxiety disorder; Z20.822 Contact with and (suspected) exposure to COVID-19; Z79.899 Other long term (current) drug therapy
CPT/HCPCS: 36415; 74018; 80048; 80051; 80053; 80061; 82550; 82607; 82746; 82947; 83036; 83735; 84439; 84443; 84484; 85025; 87635; 93005; 99285